=== PATIENT | female | born 1965 | race Two or more races ===

== ENCOUNTER → 2020-03-21 13:50 | Outpatient (BNVA) | payer MEDICAID, SELFPAY | PROVIDERS: Visit Provider Urology | DX: Z76.89 Persons encountering health services in other specified circumstances (principal) ==

== ENCOUNTER 2020-06-06 07:52 | Outpatient (REF) | payer MEDICAID, SELFPAY ==
[2020-06-06 08:46] LABS: Basophils Percent Auto 0.4 % (0-2); Eosinophils Absolute Auto 0.1 X10*3/uL (0.0-0.4); Eosinophils Percent Auto 1.9 % (0-4); Hemoglobin 11.3 g/dl (12.0-16.0); Imm Gran Abs Auto 0.04 X10*3/uL (0.00-0.03); Imm Gran Pct Auto 0.6 % (0.0-0.4); Lymphocytes Absolute Auto 1.7 X10*3/uL (1.2-4.9); Lymphocytes Percent Auto 24.7 % (20-40); Mean Corpuscular HGB Conc 32.3 g/dl (31.0-35.0); Mean Corpuscular Hemoglobin 32.7 pg (27.0-33.0); Mean Corpuscular Volume 101.2 fL (80-98); Monocytes Absolute Auto 0.7 X10*3/uL (0.1-1.2); Monocytes Percent Auto 9.5 % (2-11); Neutrophils Absolute Auto 4.3 X10*3/uL (2.0-8.3); Neutrophils Percent Auto 62.9 % (45-73); Platelet Count 254 X10*3/uL (160-400); Red Blood Count 3.46 X10*6/uL (4.20-5.50); Red Cell Distribution Width 12.6 % (11.0-16.0); White Blood Count 6.9 X10*3/uL (4.8-10.8)
[2020-06-06 08:48] LABS: MANUAL DIFF FLAG NO
[2020-06-06 09:18] LABS: Alanine Aminotransferase 18 U/L (0-31); Albumin Level 4.2 g/dL (3.5-5.0); Alkaline Phosphatase 86 U/L (39-117); Anion Gap 11 (12-20); Aspartate Amino Transferase 15 U/L (5-31); Bilirubin Total 0.4 mg/dL (0.0-1.0); Blood Urea Nitrogen 16 mg/dL (9-16); Calcium 9.2 mg/dL (8.4-10.2); Carbon Dioxide 30 mmol/L (22-29); Chloride 104 mmol/L (96-108); Estimated Glomerular Filt Rate 47; Glucose Random 143 mg/dL (60-115); Potassium 5.1 mmol/l (3.3-5.1); Sodium 140 mmol/L (135-145); Total Protein 7.1 g/dL (6.5-8.0)
== END 2020-06-06 07:53 | disposition home or self-care (01) ==
LOC: HO.LAB 07:52
PROVIDERS: Visit Provider Internal Medicine Medical Oncology
DX: C64.9 Malignant neoplasm of unspecified kidney, except renal pelvis (principal)
CPT/HCPCS: 36415; 80053; 85025

== ENCOUNTER 2020-06-13 09:10 | Outpatient (REF) | payer MEDICAID, SELFPAY ==
--- NOTE | 2020-06-13 09:13 | CT_ITS ---
EXAMINATION: CT ABDOMEN AND PELVIS WITHOUT AND WITH CONTRAST CLINICAL INFORMATION: Renal cell carcinoma of right kidney. COMPARISON: MRI abdomen 12/02/[address] abdomen and pelvis 08/01/2019. TECHNIQUE: Multidetector volumetric imaging was performed of the abdomen and pelvis before and after the IV administration of 85 mL of Omnipaque 300 intravenous contrast. Sagittal and coronal reformatted images were obtained on the technologist's workstation. This CT examination was performed using dose optimization techniques as appropriate, variously including the following: *Automated exposure control *Adjustment of mA and/or kV according to patient size (this includes techniques or standardized protocols for targeted exams where dose is matched to indication/reason for exam; i.e. extremities or head) *Use of iterative reconstruction technique DLP: . 848 mGy-cm FINDINGS: LUNG BASES: The lung bases are clear. The heart size is normal. LIVER, GALLBLADDER, AND BILIARY TREE: The liver is normal in size, shape, and attenuation. No focal hepatic lesion or biliary ductal dilatation is present. The gallbladder is unremarkable with no evidence of radiopaque gallstones, gallbladder wall thickening, or obvious pericholecystic inflammatory changes. PANCREAS: Unremarkable SPLEEN: Unremarkable ADRENAL GLANDS: The left adrenal gland is unremarkable. The right adrenal gland is not seen with certainty. KIDNEYS AND URETERS: The right kidney has been surgically removed. No recurrent lesion or mass in the right adrenal fossa. The left kidney is normal size, shape and position. No radiopaque calculi or hydronephrosis seen. BLADDER: Unremarkable. GASTROINTESTINAL TRACT: There is scattered stool and gas seen throughout the colon without any significant distention. The small bowel loops are normal caliber. Appendix is not seen. ABDOMINAL WALL: No significant hernia is appreciated. LYMPH NODES: Normal. VASCULAR: Unremarkable. PELVIC VISCERA: Unremarkable. OSSEOUS STRUCTURES: No lytic or sclerotic process. CT/CT abdomen pelvis wo/w con IMPRESSION: Status post right nephrectomy with no focal recurrent lesions seen. Normal left kidney. Mild constipation. No major change compared to CT abdomen 08/01/2019.
[2020-06-13] MEDS: iohexoL 350 MG/ML 100 ML INFUS..BTL 85 ML IV (10:33)
== END 2020-06-13 09:11 | disposition home or self-care (01) ==
LOC: HO.CT 09:10
PROVIDERS: Visit Provider Urology
DX: C64.1 Malignant neoplasm of right kidney, except renal pelvis (principal)
CPT/HCPCS: 74178; Q9967

== ENCOUNTER → 2020-06-22 10:00 | Outpatient (BNV) | payer MEDICAID, SELFPAY | PROVIDERS: Visit Provider Internal Medicine Medical Oncology | DX: C64.1 Malignant neoplasm of right kidney, except renal pelvis (principal) | CPT/HCPCS: 99213; 99214 ==

== ENCOUNTER → 2020-07-26 13:23 | Outpatient (BNVA) | payer MEDICAID, SELFPAY | PROVIDERS: Visit Provider Urology ==

== ENCOUNTER 2020-10-18 12:53 | Outpatient (REF) | payer MEDICAID, SELFPAY ==
--- NOTE | ~2020-10-18 | MM_ITS ---
EXAMINATION: MM SCREENING DIGITAL BREAST TOMOSYNTHESIS, BILATERAL CLINICAL INFORMATION: Screening. Asymptomatic. The lifetime risk of breast cancer based on the Tyrer-Cuzick Model is 15%. COMPARISON: Mammography: 08/09/2019, 02/13/2018 (new baseline). TECHNIQUE: Digital breast tomosynthesis is performed in both the craniocaudal and mediolateral oblique views along with computer-aided detection (CAD). Synthesized 2D images are generated from the tomosynthesis. Additional bilateral MLO views of the left cleavage view are provided. FINDINGS: There are scattered areas of fibroglandular density (ACR BI-RADS breast composition Category b). Breast tissue composition borders on heterogeneously dense in the anterior breasts. The parenchymal pattern is similar to prior exams. Parenchymal asymmetries in the bilateral posterior central breasts on CC views are stable. There is no developing density. No architectural abnormality. Again, there are scattered bilateral random punctate round calcifications in each breast. No significant changes. MM/MM tomosynthesis screening BI IMPRESSION: No significant changes from prior studies. ASSESSMENT: BI-RADS 2: Benign RECOMMENDATION: Routine annual mammography screening. This patient's information was entered into a reminder system with a target due date for their next mammogram.
== END 2020-10-18 12:54 | disposition home or self-care (01) ==
LOC: HO.MAMMO 12:53
PROVIDERS: Visit Provider Internal Medicine
DX: Z12.31 Encounter for screening mammogram for malignant neoplasm of breast (principal)
CPT/HCPCS: 77063; 77067

== ENCOUNTER 2021-01-01 11:40 | Outpatient (REF) | payer MEDICAID, SELFPAY ==
--- NOTE | ~2021-01-01 | XR_ITS ---
EXAMINATION: XR CHEST CLINICAL INFORMATION: Renal cell cancer COMPARISON: Previous chest CT most recent April 2019 and chest x-ray July 2019 TECHNIQUE: Frontal view of the chest was obtained. FINDINGS: The cardiac and mediastinal contours are normal. The lungs are clear. There is no pleural effusion or pneumothorax. There are embolization coils projecting over the right upper quadrant. There are degenerative changes of the spine. XR/XR chest 1V IMPRESSION: No evidence for acute disease in the chest.
== END 2021-01-01 11:41 | disposition home or self-care (01) ==
LOC: HO.XRAY 11:40
PROVIDERS: PCP Registered Nurse Community Health; Visit Provider Urology
DX: C64.9 Malignant neoplasm of unspecified kidney, except renal pelvis (principal)
CPT/HCPCS: 71045

== ENCOUNTER 2021-02-23 07:01 | Outpatient (REF) | payer MEDICAID, SELFPAY ==
--- NOTE | ~2021-02-23 | CT_ITS ---
EXAMINATION: CT ABDOMEN AND PELVIS WITH CONTRAST CLINICAL INFORMATION: Renal cell cancer COMPARISON: Previous CT of the abdomen and pelvis June 2020 and MRI of the abdomen November 2019 TECHNIQUE: Multidetector volumetric images were obtained from the superior aspect of the liver through the pubic symphysis following administration 85 mL of Omnipaque 350 intravenous contrast. Sagittal and coronal reformatted images were obtained on the technologist's workstation. Oral contrast: Yes This CT examination was performed using dose optimization techniques as appropriate, variously including the following: *Automated exposure control *Adjustment of mA and/or kV according to patient size (this includes techniques or standardized protocols for targeted exams where dose is matched to indication/reason for exam; i.e. extremities or head) *Use of iterative reconstruction technique DLP: 538 mGy-cm FINDINGS: LUNG BASES: The visualized lung bases are unremarkable. LIVER, GALLBLADDER, AND BILIARY TREE: The liver is low in attenuation suggestive of fatty infiltration. No focal liver lesion is seen. The gallbladder is normal. There is no biliary duct dilatation. PANCREAS: Unremarkable. SPLEEN: Unremarkable. ADRENAL GLANDS: The left adrenal gland is unremarkable. The right adrenal gland has been removed. KIDNEYS AND URETERS: The right kidney has been removed. The left kidney is unremarkable. BLADDER: Unremarkable. GASTROINTESTINAL TRACT: The small and large bowel are unremarkable. The appendix is unremarkable. ABDOMINAL WALL: There is a small infra umbilical hernia containing fat. LYMPH NODES: Normal. VASCULAR: Unremarkable. PELVIC VISCERA: The uterus appears to have been removed. No pelvic mass is seen. OSSEOUS STRUCTURES: Unremarkable. CT/CT abdomen pelvis w con IMPRESSION: Fatty liver. Postoperative changes following right radical nephrectomy. No evidence of recurrent or metastatic disease.
--- NOTE | ~2021-02-23 | CT_ITS ---
EXAMINATION: CT CHEST WITH CONTRAST CLINICAL INFORMATION: Renal cell cancer. Follow-up pulmonary nodules. COMPARISON: Previous chest CT most recent July 2018 TECHNIQUE: Multidetector volumetric CT imaging of the chest was obtained after the administration of 85 mL of Omnipaque 350 intravenous contrast without immediate adverse reactions. Axial MIP volume rendering provided. Sagittal and coronal reformatted images were obtained. This CT examination was performed using dose optimization techniques as appropriate, variously including the following: *Automated exposure control *Adjustment of mA and/or kV according to patient size (this includes techniques or standardized protocols for targeted exams where dose is matched to indication/reason for exam; i.e. extremities or head) *Use of iterative reconstruction technique DLP: 225 mGy-cm FINDINGS: LUNGS: There is a new 4 mm left lower lobe nodule axial image 318 series 5. There is a new 4 mm left lower lobe nodule axial image 218 series 5. There is a new 3 mm right lower lobe nodule axial image 5 series 5 There is a 3 mm calcified left lower lobe nodule axial image 323 series 5 that is stable. There are 2 mm right lower lobe nodules axial image 308 and 375 series 5 that are stable. MEDIASTINUM: The mediastinum is normal. PLEURA: There is no pleural effusion. No pleural mass or thickening. AXILLA: There are small bilateral axillary lymph nodes. No enlarged axillary lymph nodes or chest wall mass is seen. OSSEOUS STRUCTURES: There are degenerative changes of the spine. CT/CT chest w con IMPRESSION: New bilateral lower lobe pulmonary nodules, largest measuring 4 mm in the left lower lobe.
[2021-02-23] MEDS: iohexoL 350 MG/ML 100 ML INFUS..BTL IV (10:36)
== END 2021-02-23 07:02 | disposition home or self-care (01) ==
LOC: HO.CT 07:01
PROVIDERS: Visit Provider Internal Medicine Medical Oncology
DX: C64.9 Malignant neoplasm of unspecified kidney, except renal pelvis (principal)
CPT/HCPCS: 71260; 74177; Q9967

== ENCOUNTER → 2021-04-05 13:20 | Outpatient (BNVA) | payer MEDICAID, SELFPAY | PROVIDERS: PCP Registered Nurse Community Health | DX: C64.9 Malignant neoplasm of unspecified kidney, except renal pelvis (principal) | CPT/HCPCS: 99212 ==

== ENCOUNTER → 2021-05-18 10:53 | Outpatient (BNVA) | payer MEDICAID, SELFPAY | PROVIDERS: PCP Registered Nurse Community Health; Referring Provider Registered Nurse Community Health; Visit Provider Internal Medicine Gastroenterology ==

== ENCOUNTER → 2021-07-13 10:51 | Outpatient (BNVA) | payer MEDICAID, SELFPAY | PROVIDERS: PCP Registered Nurse Community Health; Referring Provider Registered Nurse Community Health; Visit Provider Internal Medicine Gastroenterology | DX: R10.9 Unspecified abdominal pain (principal); K59.00 Constipation, unspecified; Z85.528 Personal history of other malignant neoplasm of kidney; Z90.5 Acquired absence of kidney | CPT/HCPCS: 99212 ==

== ENCOUNTER 2021-09-04 07:09 | Outpatient (REF) | payer MEDICAID, SELFPAY ==
--- NOTE | ~2021-09-04 | US_ITS ---
EXAMINATION: US RETROPERITONEAL LIMITED (RENAL ONLY) CLINICAL INFORMATION: Malignant neoplasm of unspecified kidney, except renal pelvis. COMPARISON: CT abdomen and pelvis 02/23/2021. MRI abdomen 12/02/2019. Ultrasound abdomen 08/13/2018. TECHNIQUE: Real-time imaging of the kidneys. FINDINGS: RIGHT KIDNEY: Surgically absent. LEFT KIDNEY: 11.7 x 6.4 x 4.3 cm (SAG x AP x TRV). The kidney is normal in size, contour, and echogenicity. Renal cortical thickness is normal. No renal calculi or hydronephrosis. There is anechoic cyst midpole laterally measuring 0.4 x 0.3 x 0.4 cm. US/US renal BI IMPRESSION: Small anechoic cyst midpole left kidney. No echogenic stones or hydronephrosis seen.
== END 2021-09-04 07:10 | disposition home or self-care (01) ==
LOC: HO.US 07:09
DX: C64.9 Malignant neoplasm of unspecified kidney, except renal pelvis (principal)
CPT/HCPCS: 76775

== ENCOUNTER 2021-11-01 13:48 | Outpatient (REF) | payer MEDICAID, SELFPAY ==
--- NOTE | ~2021-11-01 | MM_ITS ---
EXAMINATION: MM SCREENING DIGITAL BREAST TOMOSYNTHESIS, BILATERAL CLINICAL INFORMATION: Screening. Asymptomatic. The lifetime risk of breast cancer based on the Tyrer-Cuzick Model is 8.2%. COMPARISON: Mammography: October 18, 2020 and studies dating back to February 13, 2018 TECHNIQUE: Digital breast tomosynthesis is performed in both the craniocaudal and mediolateral oblique views along with computer-aided detection (CAD). Synthesized 2D images are generated from the tomosynthesis. FINDINGS: The breasts are heterogeneously dense, which may obscure small masses (ACR BI-RADS breast composition Category c). There are no new significant masses, abnormal calcifications, or other abnormalities. MM/MM tomosynthesis screening BI IMPRESSION: There are no significant changes from prior study. ASSESSMENT: BI-RADS 1: Negative RECOMMENDATION: Routine annual mammography screening. This patient's information was entered into a reminder system with a target due date for their next mammogram.
== END 2021-11-01 13:49 | disposition home or self-care (01) ==
LOC: HO.MAMMO 13:48
PROVIDERS: PCP Registered Nurse Community Health; Visit Provider Registered Nurse Community Health
DX: Z12.31 Encounter for screening mammogram for malignant neoplasm of breast (principal)
CPT/HCPCS: 77063; 77067

== ENCOUNTER 2022-05-29 13:17 | Outpatient (REF) | payer MEDICAID, SELFPAY | END 2022-05-29 13:18 | disposition home or self-care (01) | LOC: HO.US 13:17 | PROVIDERS: Visit Provider Advanced Practice Midwife | DX: R10.2 Pelvic and perineal pain (principal) | CPT/HCPCS: 76830; 76856 ==

== ENCOUNTER → 2022-06-12 12:44 | Outpatient (BNVA) | payer MEDICAID, SELFPAY | PROVIDERS: PCP Registered Nurse Community Health; Visit Provider Advanced Practice Midwife | DX: Z71.2 Person consulting for explanation of examination or test findings (principal); R10.2 Pelvic and perineal pain | CPT/HCPCS: 99212 ==

== ENCOUNTER 2022-06-14 08:41 | Outpatient (REF) | payer MEDICAID, SELFPAY ==
--- NOTE | ~2022-06-14 | XR_ITS ---
EXAMINATION: XR CHEST CLINICAL INFORMATION: Malignant neoplasm of the kidney COMPARISON: 01/01/2021 TECHNIQUE: 2 views of the chest were obtained. FINDINGS: The lungs are well expanded. There is no focal consolidation, edema, or effusion. No pneumothorax. The cardiomediastinal silhouette is within normal limits. No acute osseous abnormality. Mild degenerative changes throughout the spine. Radiopaque coils in the upper central abdomen. XR/XR chest 2V IMPRESSION: Clear lungs.
== END 2022-06-14 08:42 | disposition home or self-care (01) ==
LOC: HO.XRAY 08:41
DX: C64.9 Malignant neoplasm of unspecified kidney, except renal pelvis (principal)
CPT/HCPCS: 71046

== ENCOUNTER → 2022-06-20 15:40 | Outpatient (BNVA) | payer MEDICAID, SELFPAY | PROVIDERS: PCP Registered Nurse Community Health; Visit Provider Nurse Practitioner Family | DX: C64.1 Malignant neoplasm of right kidney, except renal pelvis (principal) | CPT/HCPCS: 99212 ==

== ENCOUNTER 2022-07-04 07:05 | Outpatient (REF) | payer MEDICAID, SELFPAY ==
--- NOTE | ~2022-07-04 | CT_ITS ---
EXAMINATION: CT ABDOMEN PELVIS WITH IV CONTRAST CLINICAL INFORMATION: Followup on renal cell carcinoma. COMPARISON: None TECHNIQUE: 5 mm thin axial and reformatted 3 mm thin sagittal and coronal images of chest, abdomen and pelvis were obtained following IV 85 mL Omnipaque 350. DLP: 1233 mGy-cm. This CT examination was performed using dose optimization technique as appropriate, variously including the following: Automated exposure control Adjustment of MA and/or KV according to patient size(this includes techniques or standardized protocols for targeted exams where dose is matched to indication/reason for exam; extremities or head. Use of iterative reconstruction techniques. FINDINGS: CHEST: Lungs: Both lungs are fairly well expanded and clear of acute pneumonic consolidation. There is a 1 mm calcification right lower lobe superior segment image 181/10, noncalcified 4 mm nodule left lower lobe axial image 242/10, 6 mm nodule left lower lobe axial image 234/10, 2 mm nodule left lower lobe axial image 189/10, 1 mm nodule right middle lobe axial image 235/10 and 3 mm nodule right lower lobe axial image 268/10. Mediastinum: The heart size is normal. The great vessels are normal caliber. Central trachea and the bronchi are widely patent. The thyroid lobes are symmetrical and normal. No abnormal-size mediastinal or hilar lymphadenopathy seen. No pericardial effusion seen. Pleura: There is no pleural effusion, thickening or calcification. Axilla: No abnormal-size inguinal lymph node seen. The chest wall is unremarkable. ABDOMEN AND PELVIS: Liver, ducts and gallbladder: The liver is normal size, contour and density. No focal lesion or intrahepatic ductal dilatation seen. The gallbladder is unremarkable. Spleen: Unremarkable. Pancreas: Unremarkable. Kidneys and adrenal glands: The right kidney and right adrenal gland appears to be removed. The left kidney is normal size, shape and position. No focal enhancing lesion, cyst or hydronephrosis seen. No radiopaque calculi. The left adrenal gland is normal. Lymphovascular structures: The abdominal aorta is normal caliber. No abnormal-size retroperitoneal lymph nodes or mass seen. GI tract: There is scattered stool and gas seen in colon without distention. The small bowel loops are normal caliber. The appendix is normal caliber. Abdominal wall: There is an infraumbilical midline abdominal wall hernia containing fat. The neck is 3.2 cm wide in craniocaudad length. Pelvis: The bladder is nondistended and appears unremarkable. The uterus is atrophic or surgically removed. No free fluid or adnexal mass seen. No abnormal pelvic or inguinal lymph nodes. Osseous structures: Degenerative disc changes and vacuum disc phenomena L5-S1 disc level. No aggressive lytic or sclerotic process seen. CT/CT abdomen pelvis w IV con IMPRESSION: Status post right nephrectomy and adrenalectomy. The left kidney and left adrenal gland is unremarkable. No retroperitoneal or pelvic lymph node seen. Mild constipation. Multiple bilateral small pulmonary nodules, suspicious. The largest nodule measures 6 mm.
[2022-07-04 07:46] LABS: Blood Urea Nitrogen 17 mg/dL (9-16); Estimated Glomerular Filt Rate 40
[2022-07-04] MEDS: iohexoL 350 MG/ML 100 ML INFUS..BTL IV (08:42)
== END 2022-07-04 07:06 | disposition home or self-care (01) ==
LOC: HO.CT 07:05
PROVIDERS: Nurse Practitioner Family; Visit Provider Internal Medicine Medical Oncology
DX: C64.9 Malignant neoplasm of unspecified kidney, except renal pelvis (principal); R91.8 Other nonspecific abnormal finding of lung field; R39.15 Urgency of urination
CPT/HCPCS: 36415; 71260; 74177; 82565; 84520; Q9967

== ENCOUNTER 2022-08-07 12:00 | Outpatient (RCR) | payer MEDICAID, SELFPAY ==
--- NOTE | 2022-07-10 14:11 | MHC.PT.EP ---
[facility] [place] Office [place] Office [place] Office [address] Jared Solorzano [address] [phone] F: [phone] F: [phone] F: [phone] F: [phone] Physical Therapy Plan of Care Date of Evaluation: Date of Surgery: N/A Diagnosis: Macromastia Assessment: Pt is a 57yo F with PMH including renal cell carcinoma presents to PT with chronic low back pain. She presents to PT with current impairments in pain, decreased lumbar ROM, soft tissue restrictions, decreased core stabilization, decreased muscle length, increased anterior pelvic tilt and impaired gait. She is limited functionally by prolonged standing, prolonged sitting, laying flat, and transitional movements. Overall she has fair tolerance for mobility at this time. Pt is a good candidate for skilled PT in order to address current impairments to facilitate return to PLOF. She is recommended to be seen 1x/week for 5 weeks and will be reassessed at that time. Frequency and Duration: The patient will be seen 1x/week for 5 weeks Short Term Goals: Pt will be I with HEP to promote self management of symptoms Pt will demonstrate proper use of lumbar roll for improve posture and positioning Mcc Goals: Pt will demonstrate full ROM all planes of lumbar spine Pt will tolerate prolonged standing and walking > 30 min with pain < 5/10 Treatment Plan: Modalities to reduce pain, spasms and effusion. Manual therapy to restore motion and function. Therapeutic exercise to improve strength and flexibility. Neuromuscular re-education for posture and balance. Therapeutic activities to return to functional activities of daily living. Electronically signed by: Chapis Isaac, PT, DPT Please sign and return to therapist. Thank you for your referral.
--- NOTE | 2022-09-12 14:49 | MHC.PT.DC ---
[facility] [place] Office [place] Office [place] Office [address] Jared Solorzano [address] [phone] F: [phone] F: [phone] F: [phone] F: [phone] Physical Therapy Discharge Report Diagnosis: Macromastia Date of Surgery: N/A Date of Evaluation: 07/10/22 Date of Discharge: 09/12/22 Treatments to Date: 3 Cancellations to Date: No Shows to Date: 3 Discharge Status: Visit Non-compliance Discharge Summary: Pt was seen for PT from 07/10/22-08/07/22. Her last attended appointment was 08/07/22. She had 3 no show appointments since SOC including 2 no shows for her last 2 scheduled appointments. Pt is being D/C from skilled PT for visit non compliance per [facility] [place]. Pt current level of function unknown at this time. Electronically signed by: Chapis Isaac, PT, DPT Please sign and return to therapist. Thank you for your referral.
== END 2022-09-12 14:49 | disposition home or self-care (01) ==
LOC: HO.PT 12:00
PROVIDERS: PCP Registered Nurse; Visit Provider Registered Nurse
DX: M54.50 Low back pain, unspecified (principal)
CPT/HCPCS: 97110; 97162

== ENCOUNTER 2022-12-02 13:22 | Outpatient (REF) | payer MEDICAID, SELFPAY ==
--- NOTE | ~2022-12-02 | MM_ITS ---
EXAMINATION: MM SCREENING DIGITAL BREAST TOMOSYNTHESIS, BILATERAL CLINICAL INFORMATION: Screening. Asymptomatic. The lifetime risk of breast cancer based on the Tyrer-Cuzick Model is 9%. COMPARISON: Prior mammography exams including most recent 11/01/2021. TECHNIQUE: Digital breast tomosynthesis is performed in both the craniocaudal and mediolateral oblique views along with computer-aided detection (CAD). Synthesized 2D images are generated from the tomosynthesis. FINDINGS: There are scattered areas of fibroglandular density (ACR BI-RADS breast composition Category b). There are no significant masses, abnormal calcifications, or other abnormalities. No developing density or architectural abnormality. Scattered bilateral random punctate round calcifications are present in each breast similar to prior exams. No significant changes. MM/MM tomosynthesis screening BI IMPRESSION: No mammographic evidence of malignancy. ASSESSMENT: BI-RADS 2: Benign RECOMMENDATION: Routine annual mammography screening. This patient's information was entered into a reminder system with a target due date for their next mammogram.
== END 2022-12-02 13:23 | disposition home or self-care (01) ==
LOC: HO.MAMMO 13:22
PROVIDERS: PCP Registered Nurse; Visit Provider Registered Nurse
DX: Z12.31 Encounter for screening mammogram for malignant neoplasm of breast (principal)
CPT/HCPCS: 77063; 77067

== ENCOUNTER 2022-12-05 08:26 | Outpatient (REF) | payer MEDICAID, SELFPAY ==
--- NOTE | ~2022-12-05 | CT_ITS ---
EXAM: 1. CT chest without contrast 2. CT abdomen pelvis without and with IV contrast INDICATION: Follow-up pulmonary nodules. Renal neoplasm. COMPARISON: CT chest, abdomen and pelvis 07/04/2022 TECHNIQUE: Multidetector helical imaging of the chest, abdomen, and pelvis was obtained from the thoracic inlet through the pubic symphysis following administration of 85 cc of Omnipaque 350 IV contrast. Coronal and sagittal reformatted images that were obtained were also reviewed. This CT examination was performed using dose optimization techniques as appropriate, variously including the following: *Automated exposure control *Adjustment of mA and/or kV according to patient size (this includes techniques or standardized protocols for targeted exams where dose is matched to indication/reason for exam; i.e. extremities or head) *Use of iterative reconstruction technique DLP: 233 mGy-cm FINDINGS: CHEST: Central airways are patent. Lungs are well aerated. There is no lobar consolidation, pleural effusion or pneumothorax. Several previously visualized subcentimeter pulmonary nodules are again noted, most of which are relatively stable in size although a few demonstrate minimal interval increase in size, for example a 5 mm left lower lobe pulmonary nodule previously measured 4 mm (image 122/208, series 7). Also noted are a few new pulmonary nodules which were not definitively visualized previously, for example a 5 mm right lower lobe pulmonary nodule on image 116. The heart is normal in size. There is no pericardial effusion. No significant coronary artery calcifications. Normal caliber thoracic aorta. No gross mediastinal or hilar lymphadenopathy. No pathologically enlarged axillary lymph nodes. ABDOMEN/PELVIS: The liver is normal in size but demonstrates diffusely decreased attenuation. The gallbladder is normal in appearance. There is mild fatty atrophy of the pancreas. The spleen and left adrenal gland are unremarkable. No renal calculi or hydronephrosis of the left kidney. The right kidney and right adrenal gland are surgically absent. Right nephrectomy bed is unremarkable. Normal caliber loops of small and large bowel. Mild colonic stool burden. Normal appendix. Stable fat-containing umbilical hernia. Normal caliber abdominal aorta. No gross retroperitoneal lymphadenopathy. Similar appearance of the bladder. The uterus is surgically absent. No gross free pelvic fluid. Similar shotty pelvic lymph nodes. OSSEOUS STRUCTURES Mild to moderate degenerative changes of the spine. CT/CT abdomen pelvis wo/w IV con IMPRESSION: 1. Several previously visualized subcentimeter pulmonary nodules are again noted, most of which are relatively stable in size although a few demonstrate minimal interval increase in size, for example a 5 mm left lower lobe pulmonary nodule previously measured 4 mm. Also noted are a few new pulmonary nodules which were not definitively visualized previously, for example a 5 mm right lower lobe pulmonary nodule was not definitively visualized previously. Findings are concerning for metastatic disease. 2. Diffusely decreased liver attenuation suggesting hepatic steatosis. Correlation with liver enzymes recommended.
[2022-12-05] MEDS: iohexoL 350 MG/ML 100 ML INFUS..BTL IV (10:41)
[2022-12-05 14:25] LABS: Creatinine POC 0.8 mg/dL (0.5-1.4); GFR POC > 60
== END 2022-12-05 08:27 | disposition home or self-care (01) ==
LOC: HO.CT 08:26
PROVIDERS: PCP Registered Nurse; Visit Provider Nurse Practitioner Family
DX: C64.9 Malignant neoplasm of unspecified kidney, except renal pelvis (principal); R91.8 Other nonspecific abnormal finding of lung field
CPT/HCPCS: 71260; 74178; 82565; Q9967

== ENCOUNTER → 2022-12-09 08:48 | Outpatient (BNVA) | payer MEDICAID, SELFPAY | PROVIDERS: Visit Provider Hospitalist | DX: R91.8 Other nonspecific abnormal finding of lung field (principal); C64.1 Malignant neoplasm of right kidney, except renal pelvis | CPT/HCPCS: 99202 ==

== ENCOUNTER 2022-12-18 13:12 | Outpatient (AMB) | payer MEDICAID, SELFPAY ==
--- NOTE | 2022-12-18 14:11 | MHC.OFFVIS ---
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: Yes Accompanied by: Self / Same As Patient Allergies phenylephrine [From CONTAC-D COLD (PE)] Allergy (Unknown, Verified 12/19/22 10:15) EDEMA Contac-D Allergy (Unknown, Uncoded 12/19/22 10:15) Unknown Medication List - Last Reconciled 12/19/22 by BELINDA Gan-MATEO acetaminophen ER 1,300 mg PO Q8H PRN atorvastatin 1 tab PO BEDTIME baclofen 20 mg PO TID docusate sodium 1 cap PO BEDTIME PRN dulaglutide (Trulicity) 0.75 mg subcut QWEEK famotidine 20 mg PO gabapentin 1 cap PO QPM lancets (TRUEplus Lancets) As directed levothyroxine 25 mcg PO QAM losartan 25 mg PO DAILY metformin 500 mg PO BID naloxegol (Movantik) 12.5 mg PO QAM oxycodone 5 mg PO Q6H PRN propranolol 10 mg PO BID sertraline 25 mg PO DAILY sertraline (Zoloft) 200 mg PO DAILY zolpidem 10 mg PO BEDTIME HPI HPI Comments History of Present Illness Details Krys is a Telugu-speaking 57-year-old female patient of Dr. Naidu. 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 These results were reviewed with the patient today. No renal calculi or hydronephrosis of the left kidney. The right kidney and right adrenal gland are surgically absent. Right nephrectomy bed is unremarkable. Several previously visualized subcentimeter pulmonary nodules are again noted, most of which are relatively stable in size although a few demonstrate minimal interval increase in size. Also noted are a few new pulmonary nodules which were not definitively visualized previously. Findings are concerning for metastasis disease. Patient reports having followed up with pulmonology and will be undergoing biopsy tomorrow. She does verbalize feelings of anxiety related to her history of cancer. At this time patient denies any urinary issues. Discussed surveillance imaging chest CT as well as abdominal and pelvis imaging. Discussed surveillance imaging at years 5, 7 and 9. Renal lesion:? Discussed imaging results No evidence of disease Repeat imaging in 6 months Lab work has been followed with Oncology has been normal The renal mass was diagnosed incidentally, during evaluation for, hematuria ? 09/25 ? Prior treatment(s) included 01/[address] Hui. ? Staging of initial cancer 01/25 , T3a , with no positive lymph nodes, with vein involvement ? - Stage III. ? The diagnosis was renal cell carcinoma, Grade III ? Planned therapeutic plan Continue with interval imaging. [facility] Medical History Anxiety Clear cell carcinoma of right kidney Depression Pulmonary nodules Right renal mass Surgical History History of esophagogastroduodenoscopy (EGD) Hx of colonoscopy S/P skin biopsy Status post hysterectomy Family History Maternal Uncle Stomach cancer Maternal Aunt Stomach cancer Paternal Aunt Colon cancer Sister Liver cancer Sister Skin cancer Social History Household Members: None Housing: Apartment Are you a primary memory care program resident to a significant other at home: No Do you presently have visiting nurse or other home services: Yes Alcohol intake: former Patient Tobacco Use Status: Never used Tobacco Advance Directives: No Advance Directives Information Provided: Yes service: No Current occupational status: unemployed Review of Systems Const Reports as per HPI Eyes Reports no additional complaints ENT Reports no additional complaints Card Reports no additional complaints Resp Reports as per HPI GI Reports no additional complaints Reports as per HPI Musc Reports no additional complaints Psych Reports as per HPI Physical Exam Const General: cooperative, healthy appearing, comfortable, no acute distress, well developed, alert and awake Orientation/consciousness: patient oriented x3 Limitations: no limitations HEENT Head: Yes normal to inspection, Yes normocephalic and Yes atraumatic Eyes General: appearance normal, both eyes and all related structures Neck Neck: Yes normal visual inspection and Yes trachea midline Chest Chest palpation & inspection: normal inspection of the chest Resp Effort & Inspection: normal respiratory effort and able to speak in complete sentences Cardio Rate: regular rate GI Inspection: Yes normal to inspection General: Yes no CVA tenderness Back/Spine/Pelvis Back: no CVA tenderness Neuro General: patient oriented x3 Extrem General: Yes normal to inspection Psych Appearance: grossly normal and well kempt Mental Status: mental status grossly normal Speech and movement: Normal speech and movement present and Clear speech present Affect: normal affect Attitude: cooperative Thought process: Normal thought process present Thought content: Normal thought content present Insight: Fair insight present (Psych) Judgement: Fair judgement present (Psych) Results Reviewed Results Reviewed: Date of Service: 12/05/22 Procedure(s): CT abdomen pelvis wo/w IV con FINDINGS: CHEST: Central airways are patent. Lungs are well aerated. There is no lobar consolidation, pleural effusion or pneumothorax. Several previously visualized subcentimeter pulmonary nodules are again noted, most of which are relatively stable in size although a few demonstrate minimal interval increase in size, for example a 5 mm left lower lobe pulmonary nodule previously measured 4 mm (image 122/208, series 7). Also noted are a few new pulmonary nodules which were not definitively visualized previously, for example a 5 mm right lower lobe pulmonary nodule on image 116. The heart is normal in size. There is no pericardial effusion. No significant coronary artery calcifications. Normal caliber thoracic aorta. No gross mediastinal or hilar lymphadenopathy. No pathologically enlarged axillary lymph nodes. ABDOMEN/PELVIS: The liver is normal in size but demonstrates diffusely decreased attenuation. The gallbladder is normal in appearance. There is mild fatty atrophy of the pancreas. The spleen and left adrenal gland are unremarkable. No renal calculi or hydronephrosis of the left kidney. The right kidney and right adrenal gland are surgically absent. Right nephrectomy bed is unremarkable. Normal caliber loops of small and large bowel. Mild colonic stool burden. Normal appendix. Stable fat-containing umbilical hernia. Normal caliber abdominal aorta. No gross retroperitoneal lymphadenopathy. Similar appearance of the bladder. The uterus is surgically absent. No gross free pelvic fluid. Similar shotty pelvic lymph nodes. OSSEOUS STRUCTURES Mild to moderate degenerative changes of the spine. IMPRESSION:? 1.? Several previously visualized subcentimeter pulmonary nodules are again noted, most of which are relatively stable in size although a few demonstrate minimal interval increase in size, for example a 5 mm left lower lobe pulmonary nodule previously measured 4 mm. Also noted are a few new pulmonary nodules which were not definitively visualized previously, for example a 5 mm right lower lobe pulmonary nodule was not definitively visualized previously. Findings are concerning for metastatic disease. 2.? Diffusely decreased liver attenuation suggesting hepatic steatosis. Correlation with liver enzymes recommended. Assessment & Plan Assessment & Plan (1) Clear cell carcinoma of right kidney: Comment: status post nephrectomy, at [facility] in January. 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 Marilyn grade 3. Stage IIIA, with renal vein extention. Stutent started on June 17. Code(s): C64.1 - Malignant neoplasm of right kidney, except renal pelvis (2) Renal cell carcinoma: Code(s): C64.9 - Malignant neoplasm of unspecified kidney, except renal pelvis Plan Recent CT of the abdomen results reviewed with the patient today; as noted above. Recent CT of the chest results reviewed with the patient today; as noted above. Patient has since follow-up with pulmonology and plan is to move forward with biopsy. Discussed importance of following up with pulmonology as directed. Patient denies any urological issues or concerns at this time. Patient reports be happy with current voiding parameters. Renal ultrasound in 6 months. Follow-up in 6 months with imaging to be completed prior or sooner with any issues, concerns, and or questions. Orders: Orders US renal BI 6 Months C64.1 - Malignant neoplasm of right kidney, except renal pelvis Patient Instructions: The patient had an opportunity to ask questions regarding the treatment plan. All questions were answered. Physical exam, labs, and imaging were discussed and reviewed in detail. As well as risks, benefits, and discussion of treatment choices. No major barriers to understanding were identified. The patient expressed understanding and agreement with the above treatment plan. The patient was made aware they should contact our office by phone for worsening of their current condition, the appearance of new symptoms, or with any questions or concerns. Compliance is encouraged with any medications and follow up testing that is ordered. It is a privilege to be allowed the opportunity to participate in? your urological care.? Again, if you have any questions or concerns If you have any questions or concerns please do not hesitate to contact me. The office is [phone]. This note is constructed using voice recognition software. While every effort has been made to ensure accuracy property loss insurance claim adjuster errors may have been included. Yours sincerely, ARLEY Gan Coding Level of Care Code Est Pt Level 3 (05545) Diagnoses Clear cell carcinoma of right kidney C64.1 Renal cell carcinoma C64.9
== END 2022-12-18 14:45 | disposition home or self-care (01) ==
PROVIDERS: Visit Provider Nurse Practitioner Family
DX: C64.1 Malignant neoplasm of right kidney, except renal pelvis (principal); C64.9 Malignant neoplasm of unspecified kidney, except renal pelvis
CPT/HCPCS: 99213

== ENCOUNTER → 2022-12-18 13:12 | Outpatient (BNVA) | payer MEDICAID, SELFPAY | PROVIDERS: Visit Provider Nurse Practitioner Family | DX: C64.1 Malignant neoplasm of right kidney, except renal pelvis (principal); C64.9 Malignant neoplasm of unspecified kidney, except renal pelvis; R91.8 Other nonspecific abnormal finding of lung field; Z90.5 Acquired absence of kidney; Z79.4 Long term (current) use of insulin; Z79.891 Long term (current) use of opiate analgesic; Z79.899 Other long term (current) drug therapy | CPT/HCPCS: 99213 ==

== ENCOUNTER 2022-12-19 06:04 | Day surgery (SDC) | payer MEDICAID, SELFPAY ==
--- NOTE | ~2022-12-19 | XR_ITS ---
EXAMINATION: XR CHEST CLINICAL INFORMATION: Status post right lung biopsy. COMPARISON: 06/14/2022 chest radiographs. 12/19/2022 left lung biopsy and chest CT scan dated 12/05/2022. TECHNIQUE: Frontal view of the chest was obtained. FINDINGS: The lungs are clear. No overt pneumothorax. The heart and mediastinal structures are unremarkable. XR/XR chest 1V IMPRESSION: No overt pneumothorax status post lung biopsy. The known nodules are not as well seen radiographically. Please refer to the recent CT scan report for more detailed findings.
--- NOTE | ~2022-12-19 | CT_ITS ---
PROCEDURE: CT GUIDED BIOPSY, LUNG CLINICAL INFORMATION: 57-year-old female with multiple pulmonary nodules COMPARISON: CT of the chest dated 12/05/2022 TECHNIQUE: Patient was positioned oblique prone on the CT examination table with the left side raised from the bed. Preliminary CT scan showed multiple left lung nodules and a peripheral left lower lobe nodule that was deemed appropriate for biopsy. It was, however, challenging from the standpoint that it is subcentimeter in size and located immediately below a rib, but we nonetheless felt it was the safest to biopsy. We experimented with angulation of the CT gantry and with the patient performing full inspiratory and expiratory phases. We found that full expiratory phase optimally positioned the nodule, but unfortunately the patient continued to move throughout the procedure and also was semicompliant with breathing instructions. Nonetheless, we elected to attempt biopsy. The overlying skin was prepped and draped. 1% lidocaine was injected subcutaneously and extended to the deep pelvis soft tissues. Next, under progressive CT guidance, I advanced a 17-gauge coaxial needle to the pleural surface. I was able to obtain [id number] core specimens directly through the nodule. This was confirmed with imaging. The specimens were placed in formalin and deemed to be adequate by pathology. We removed the coaxial needle. There was a tiny amount of intraparenchymal hemorrhage, but no pneumothorax nor other complication. A sterile dressing was applied. This CT examination was performed using dose optimization techniques as appropriate, variously including the following: *Automated exposure control *Adjustment of mA and/or kV according to patient size (this includes techniques or standardized protocols for targeted exams where dose is matched to indication/reason for exam; i.e. extremities or head) *Use of iterative reconstruction technique DLP: 1646 mGy-cm FINDINGS: Multiple pulmonary nodules in the left lung. Successful core biopsy of a peripheral left lower lobe nodule. CT/CT biopsy lung LT IMPRESSION: Successful CT-guided core biopsy of a peripheral left lower lobe nodule as described.
[2022-12-19 07:16] VITALS: BP 122/53; PULSE 68; RESP 20; TEMP 36.1; O2SAT 95; BMI 37.1
[2022-12-19 07:18] LABS: Glucose, Whole Blood 162 mg/dL (60-115)
[2022-12-19 07:38] LABS: MANUAL DIFF FLAG NO
[2022-12-19 07:46] LABS: Basophils Percent Auto 0.5 % (0-2); Eosinophils Absolute Auto 0.2 X10*3/uL (0.0-0.4); Eosinophils Percent Auto 2.9 % (0-4); Hematocrit 37.4 % (37.0-47.0); Hemoglobin 12.3 g/dl (12.0-16.0); Imm Gran Abs Auto 0.02 X10*3/uL (0.00-0.03); Imm Gran Pct Auto 0.3 % (0.0-0.4); Lymphocytes Absolute Auto 1.5 X10*3/uL (1.2-4.9); Mean Corpuscular HGB Conc 32.9 g/dl (31.0-35.0); Mean Corpuscular Hemoglobin 31.4 pg (27.0-33.0); Mean Corpuscular Volume 95.4 fL (80.0-98.0); Mean Platelet Volume 10.5 fL (9.4-12.3); Monocytes Absolute Auto 0.4 X10*3/uL (0.1-1.2); Monocytes Percent Auto 6.8 % (2-11); Neutrophils Absolute Auto 4.2 x10*3/uL (2.0-8.3); Neutrophils Percent Auto 66.5 % (45-73); Platelet Count 241 X10*3/uL (160-400); Red Blood Count 3.92 X10*6/uL (4.20-5.50); Red Cell Distribution Width 13.1 % (11.0-16.0); White Blood Count 6.3 X10*3/uL (4.8-10.8)
[2022-12-19 07:50] LABS: Prothrombin Time 10.9 SEC (10.0-13.1)
[2022-12-19 07:52] LABS: Partial Thromboplastin Time 30.5 SEC (26.0-36.4)
[2022-12-19 07:56] LABS: Anion Gap 12 (12-20); Blood Urea Nitrogen 11 mg/dL (9-16); Carbon Dioxide 26 mmol/L (22-29); Chloride 108 mmol/L (96-108); Creatinine Clr Calc Pharmacy 77.5; Estimated Glomerular Filt Rate 58; Potassium 4.5 mmol/L (3.3-5.1); Sodium 141 mmol/L (135-145)
[2022-12-19 10:40] VITALS: BP 124/68; PULSE 61; RESP 18; TEMP 36.6; O2SAT 92
[2022-12-19 11:10] VITALS: BP 108/70; PULSE 58; RESP 18; O2SAT 92
[2022-12-19 11:40] VITALS: BP 124/63; PULSE 62; RESP 18; O2SAT 94
[2022-12-19 12:10] VITALS: BP 129/54; PULSE 61; RESP 18; O2SAT 96
[2022-12-19 12:34] VITALS: BP 133/85; PULSE 65; RESP 18; TEMP 36.2; O2SAT 94
== END 2022-12-19 12:45 | disposition home or self-care (01) ==
PROVIDERS: Radiology Diagnostic Radiology; PCP Registered Nurse; Visit Provider Hospitalist
DX: C78.02 Secondary malignant neoplasm of left lung (principal); C64.1 Malignant neoplasm of right kidney, except renal pelvis; R53.83 Other fatigue; E03.9 Hypothyroidism, unspecified; F32.A Depression, unspecified; F41.1 Generalized anxiety disorder; Z90.5 Acquired absence of kidney; Z88.8 Allergy status to other drugs, medicaments and biological substances
CPT/HCPCS: 32408; 36415; 71045; 80051; 82565; 82947; 84520; 85025; 85610; 85730; 88305; 88342; 99152; 99153; J2250; J3010

== ENCOUNTER → 2022-12-19 08:26 | Outpatient (BNV) | payer MEDICAID, SELFPAY | PROVIDERS: PCP Registered Nurse; Visit Provider Radiology Vascular & Interventional Radiology | DX: R91.8 Other nonspecific abnormal finding of lung field (principal) | CPT/HCPCS: 32408 ==

== ENCOUNTER 2023-03-11 21:12 | Outpatient (REF) | payer MEDICAID, SELFPAY ==
[2023-03-12 11:13] LABS: CT PCR NOT DETECTED (Not Detect.); NG PCR NOT DETECTED (Not Detect.)
[2023-03-12 13:35] LABS: BV Int Neg Control Negative (Negative); BV Int Pos Control Positive (Positive)
== END 2023-03-11 21:13 | disposition home or self-care (01) ==
LOC: HO.HHCLNP 21:12
PROVIDERS: Visit Provider Student in an Organized Health Care Education/Training Program
DX: N89.8 Other specified noninflammatory disorders of vagina (principal)
CPT/HCPCS: 0353U; 87480; 87510; 87660

== ENCOUNTER 2023-03-13 06:43 | Day surgery (SDC) | payer MEDICAID, SELFPAY ==
--- NOTE | ~2023-03-13 | IR_ITS ---
PROCEDURE: IR INSERTION OF SUBCUTANEOUS PORT WITH ULTRASOUND AND FLUOROSCOPIC GUIDANCE CLINICAL INFORMATION: History of renal cancer COMPARISON: None available. TECHNIQUE: All elements of maximal sterile barrier technique followed including use of cap, mask, sterile gown, sterile gloves, a sterile full body drape and hand hygiene. Also followed skin preparation with 2% chlorhexidine for cutaneous antisepsis, and sterile ultrasound preparation with sterile gel and probe cover when applicable. CONSTRUCTION TEACHER: Brett Silva MD FSIR ANESTHESIA: IV moderate sedation with intravenous fentanyl and Versed was administered under my direct supervision with continuous physiologic monitoring for a total of 45 minutes. Procedure in detail: Informed and written consent was obtained. The patient was positioned supine on the angiography table. Sterile preparation of the right neck and chest was performed. Ultrasound of the right neck showed a patent internal jugular vein. 1% lidocaine was injected subcutaneously and extended to the edge of the jugular vein under ultrasound guidance. A small incision was made in the skin with a #11 blade. Through the incision and under ultrasound guidance with permanent recordings and direct visualization of needle entry into the vein, the right internal jugular vein was catheterized in an antegrade fashion. Over a wire, the tract was dilated and the peel-away sheath was left in place. At the planned location for the port located below the right clavicle, 1% lidocaine with epinephrine was administered subcutaneously and the local anesthesia was extended along the planned subcutaneous tract for the catheter. A small incision was made in the skin with a #15 blade. Blunt dissection was performed to create a pocket for the port. Next, we tunneled the port catheter from the port site to the neck incision site. The catheter was inserted into the peel-away sheath. It terminates at the right atrium. We cut the catheter to length and connected it to the port, which was inserted into the pocket. The pocket was irrigated with antibiotic solution. The pocket was closed with interrupted 3-0 Vicryl suture. Topical Dermabond was applied. An overlying sterile dressing was placed. The port was tested and flushes and aspirates appropriately. It was locked with heparin. A saved fluoroscopic image shows that the catheter terminates in the right atrium. Summary: Successful placement of a subcutaneous port via the right internal jugular vein under fluoroscopic and ultrasound guidance.
[2023-03-13 06:52] VITALS: BMI 33.6
[2023-03-13 06:58] VITALS: BP 135/80; PULSE 58; RESP 20; TEMP 36.3; O2SAT 98
[2023-03-13 07:07] LABS: Glucose, Whole Blood 113 mg/dL (60-115)
[2023-03-13 08:25] LABS: Prothrombin Time 11.8 SEC (11.1-13.3)
[2023-03-13 08:27] LABS: Partial Thromboplastin Time 28.2 SEC (26.0-36.4)
[2023-03-13 10:30] VITALS: BP 131/74; PULSE 59; RESP 16; TEMP 36.3; O2SAT 95
[2023-03-13 10:45] VITALS: BP 131/76; PULSE 60; RESP 16; O2SAT 95
[2023-03-13 10:59] VITALS: BP 137/81; PULSE 57; RESP 16; TEMP 36.2; O2SAT 96
== END 2023-03-13 11:08 | disposition home or self-care (01) ==
PROVIDERS: Radiology Diagnostic Radiology; PCP Registered Nurse; Visit Provider Radiology Vascular & Interventional Radiology
DX: Z45.2 Encounter for adjustment and management of vascular access device (principal); C64.1 Malignant neoplasm of right kidney, except renal pelvis; Z90.5 Acquired absence of kidney; R91.8 Other nonspecific abnormal finding of lung field; F32.A Depression, unspecified; Z79.85 Long-term (current) use of injectable non-insulin antidiabetic drugs; Z79.899 Other long term (current) drug therapy; Z88.8 Allergy status to other drugs, medicaments and biological substances
CPT/HCPCS: 36415; 36561; 82947; 85610; 85730; 99152; C1769; C1788; J0690; J1642; J2250; J3010

== ENCOUNTER → 2023-03-13 07:53 | Outpatient (BNV) | payer MEDICAID, SELFPAY | PROVIDERS: PCP Registered Nurse; Visit Provider Radiology Vascular & Interventional Radiology | DX: C64.1 Malignant neoplasm of right kidney, except renal pelvis (principal) | CPT/HCPCS: 36561; 76937; 77001 ==

== ENCOUNTER 2023-05-08 09:29 | Day surgery (SDC) | payer MEDICAID, SELFPAY ==
--- NOTE | ~2023-05-08 | IR_ITS ---
CLINICAL HISTORY: Renal cell carcinoma. The patient presents to interventional radiology for placement of a port for chemotherapy. PROCEDURES: 1. Real-time ultrasound-guided access into the left internal jugular vein after documentation of selected vessel patency, and permanent image storing in the patient records. 2. Placement of a 6.6 [place] single-lumen power port. CLINICIAN: Kvng Gibson PA-C MEDICATIONS: - Versed 1.5 mg, Fentanyl 100 mcg, Lidocaine 1% 10 mL SQ -Antibiotics: Ancef 2g -For additional details, please see nursing flowsheet. Complications: None. Estimated blood loss: <5 ml Specimens: None. Contrast: None. Fluoroscopy time: 6.0 min MODERATE SEDATION TIME: 33 min PROCEDURE NOTE: The procedure, risks, benefits, and alternatives were carefully explained to the patient and written informed consent was obtained. The patient was placed supine on the fluoroscopy table. A timeout was performed. The left neck and chest was prepped and draped in usual sterile fashion. Maximum barrier technique was utilized. Local anesthesia was administered to the access site with 1% lidocaine. Under ultrasound guidance, the left internal jugular vein was accessed with a 5 fr micropuncture set. A 0.035 in wire was advanced into the IVC. A peel-away sheath was advanced over the wire and into the SVC, and the wire was removed. Next, subcutaneous lidocaine was administered to the chest. The port pocket was created after the skin incision, utilizing blunt dissection. Using blunt dissection, a subcutaneous tunnel was created that connects from the port pocket to the venotomy site. Through the peel-away sheath, the 6.6 [place] port catheter was placed. The catheter position was verified with fluoroscopy to be at the superior vena cava/right atrial junction. The port was connected to the catheter and was placed in the pocket. The venotomy site was closed with a 3-0 Vicryl subcutaneous suture. The port incision site was closed with interrupted 3-0 Vicryl subcutaneous sutures and surgical glue. Prior to closing the skin, 1 g of Ancef solution was placed in the pocket. The port was tested, flushed, and packed with heparin per routine protocol. The patient tolerated the procedure well. The patient was stable after the procedure and was transferred to the PACU. The procedure was performed under moderate sedation and with a dedicated nurse with continuous monitoring of vital signs. A permanent image of the ultrasound the neck and fluoroscopic image of the chest was saved and sent to PACS. FINDINGS: 1. Patent left internal jugular vein 2. Placement of a 6.6 [place] single lumen power port. 3. Port flushes and aspirates very well with a 10 mL syringe. No pneumothorax. IR/IR cvc insert tunnel w prt/patient relations representative IMPRESSION: Placement of a 6.6 [place] single-lumen power port. PLAN: - The patient will be discharged home when stable by sedation protocol. - Port may be used immediately. This procedure was performed by Kvng Gibson PA-C, and directly supervised by Dr. Carlin
--- NOTE | ~2023-05-08 | IR_ITS ---
CLINICAL HISTORY: Renal cell carcinoma. The patient presents to interventional radiology for placement of a port for chemotherapy. PROCEDURES: 1. Real-time ultrasound-guided access into the left internal jugular vein after documentation of selected vessel patency, and permanent image storing in the patient records. 2. Placement of a 6.6 [place] single-lumen power port. CLINICIAN: Kvng Gibson PA-C MEDICATIONS: - Versed 1.5 mg, Fentanyl 100 mcg, Lidocaine 1% 10 mL SQ -Antibiotics: Ancef 2g -For additional details, please see nursing flowsheet. Complications: None. Estimated blood loss: <5 ml Specimens: None. Contrast: None. Fluoroscopy time: 6.0 min MODERATE SEDATION TIME: 33 min PROCEDURE NOTE: The procedure, risks, benefits, and alternatives were carefully explained to the patient and written informed consent was obtained. The patient was placed supine on the fluoroscopy table. A timeout was performed. The left neck and chest was prepped and draped in usual sterile fashion. Maximum barrier technique was utilized. Local anesthesia was administered to the access site with 1% lidocaine. Under ultrasound guidance, the left internal jugular vein was accessed with a 5 fr micropuncture set. A 0.035 in wire was advanced into the IVC. A peel-away sheath was advanced over the wire and into the SVC, and the wire was removed. Next, subcutaneous lidocaine was administered to the chest. The port pocket was created after the skin incision, utilizing blunt dissection. Using blunt dissection, a subcutaneous tunnel was created that connects from the port pocket to the venotomy site. Through the peel-away sheath, the 6.6 [place] port catheter was placed. The catheter position was verified with fluoroscopy to be at the superior vena cava/right atrial junction. The port was connected to the catheter and was placed in the pocket. The venotomy site was closed with a 3-0 Vicryl subcutaneous suture. The port incision site was closed with interrupted 3-0 Vicryl subcutaneous sutures and surgical glue. Prior to closing the skin, 1 g of Ancef solution was placed in the pocket. The port was tested, flushed, and packed with heparin per routine protocol. The patient tolerated the procedure well. The patient was stable after the procedure and was transferred to the PACU. The procedure was performed under moderate sedation and with a dedicated nurse with continuous monitoring of vital signs. A permanent image of the ultrasound the neck and fluoroscopic image of the chest was saved and sent to PACS. FINDINGS: 1. Patent left internal jugular vein 2. Placement of a 6.6 [place] single lumen power port. 3. Port flushes and aspirates very well with a 10 mL syringe. No pneumothorax. IR/IR us guide venous access IMPRESSION: Placement of a 6.6 [place] single-lumen power port. PLAN: - The patient will be discharged home when stable by sedation protocol. - Port may be used immediately. This procedure was performed by Kvng Gibson PA-C, and directly supervised by Dr. Carlin
[2023-05-08 09:57] VITALS: BP 145/78; PULSE 54; RESP 18; TEMP 36.3; O2SAT 97; BMI 30.9
[2023-05-08 10:06] LABS: Glucose, Whole Blood 82 mg/dL (60-115)
[2023-05-08 13:01] LABS: Glucose, Whole Blood 70 mg/dL (60-115)
[2023-05-08 14:50] VITALS: BP 146/82; PULSE 55; RESP 16; TEMP 36.7; O2SAT 96
[2023-05-08 15:05] VITALS: BP 155/86; PULSE 60; RESP 17; O2SAT 97
[2023-05-08 15:18] LABS: Glucose, Whole Blood 77 mg/dL (60-115)
[2023-05-08 15:20] VITALS: BP 147/84; PULSE 71; RESP 16; O2SAT 98
[2023-05-08 15:35] VITALS: BP 146/77; PULSE 68; RESP 14; TEMP 36.7; O2SAT 99
--- NOTE | 2023-05-12 12:48 | MHC.HEMONC ---
Triage- Pt called because she has not been feeling since she had a port placement procedure on 05/08/23. Pt is throwing up, has back pain, and she not been able to sleep or eat. Msg given to Yanira NARVAEZ
== END 2023-05-08 15:55 | disposition home or self-care (01) ==
PROVIDERS: Radiology Vascular & Interventional Radiology; PCP Registered Nurse; Visit Provider Internal Medicine Medical Oncology
DX: Z45.2 Encounter for adjustment and management of vascular access device (principal); C64.1 Malignant neoplasm of right kidney, except renal pelvis; R91.8 Other nonspecific abnormal finding of lung field; E03.9 Hypothyroidism, unspecified; Z79.899 Other long term (current) drug therapy; Z79.84 Long term (current) use of oral hypoglycemic drugs; Z88.8 Allergy status to other drugs, medicaments and biological substances
CPT/HCPCS: 36561; 76937; 82947; 99152; 99153; C1769; C1788; J0690; J1642; J1644; J2250; J2310; J3010

== ENCOUNTER → 2023-05-08 13:00 | Outpatient (BNV) | payer MEDICAID, SELFPAY | PROVIDERS: PCP Registered Nurse; Visit Provider Radiology Vascular & Interventional Radiology | DX: C64.1 Malignant neoplasm of right kidney, except renal pelvis (principal); Z45.2 Encounter for adjustment and management of vascular access device | CPT/HCPCS: 36561; 76937 ==

== ENCOUNTER 2023-05-22 15:30 | Outpatient (REF) | payer MEDICAID, SELFPAY ==
--- NOTE | ~2023-05-22 | CT_ITS ---
EXAMINATION: CT CHEST, ABDOMEN AND PELVIS WITH CONTRAST CLINICAL INFORMATION: Renal cell carcinoma with lung nodules COMPARISON: CT chest abdomen pelvis most recently on 12/05/2022 TECHNIQUE: Multidetector volumetric imaging was performed from the thoracic inlet through the pubic symphysis following administration of 85 mL Omnipaque 350. Sagittal and coronal reformatted images were obtained on the technologist's workstation. This CT examination was performed using dose optimization techniques as appropriate, variously including the following: *Automated exposure control *Adjustment of mA and/or kV according to patient size (this includes techniques or standardized protocols for targeted exams where dose is matched to indication/reason for exam; i.e. extremities or head) *Use of iterative reconstruction technique DLP: 644.82 mGy-cm FINDINGS: CHEST: Lungs: There has been a significant decrease in size of pulmonary nodules. The previously seen 5 mm pulmonary nodule left lower lobe now measures less than 2 mm (7:262 compare prior 7:124). Previously seen new right lower lobe pulmonary nodule (prior 7:116) is no longer present. In addition, a 4 mm right middle lobe nodule seen previously (prior 7:124) is no longer present. No new pulmonary nodules are seen. Mediastinum: The mediastinum is unremarkable. The central vascular structures are unremarkable. No hilar or mediastinal lymphadenopathy. Coronary Artery Calcium: None seen. Pericardium/Pleura: No significant effusion. No pleural mass or thickening. Chest Wall/Axilla: A left chest wall port has its tip in the proximal right atrium in good position. ABDOMEN/PELVIS: Peritoneal Space: No significant free air or free fluid identified. Liver, Gallbladder, Biliary Tree: The liver is normal in size, shape, and attenuation. No convincing significant focal hepatic lesion or biliary ductal dilatation is present. The gallbladder is contracted but otherwise unremarkable with no evidence of radiopaque gallstones, gallbladder wall thickening, or obvious pericholecystic inflammatory changes. Pancreas: Unremarkable. Spleen: Unremarkable. Adrenal Glands: Unremarkable. Kidneys and Ureters: Status post right nephrectomy. Left kidney appears normal. Please see discussion below regarding left renal vein. Bladder: Unremarkable. Gastrointestinal Tract: The small and large bowel are unremarkable. The appendix is unremarkable. Abdominal Wall: There is a small ventral hernia present just below the level of the umbilicus which contains only fat. Lymph Nodes: No retroperitoneal lymphadenopathy. Vascular: The aorta appears unremarkable. Of note, there is thrombus present in the left renal vein measuring 3.1 cm in length by 8 mm in diameter. This appears to emanate from (or extend into) the left gonadal vein. The IVC is free of thrombus. PELVIC VISCERA: The uterus is not seen. An abnormal adnexal mass is not detected. No free intraperitoneal fluid is present. OSSEUS STRUCTURES: Mild degenerative changes are noted in the spine. No bony destructive lesions are seen to suggest metastatic renal cell carcinoma. CT/CT abdomen pelvis w IV con IMPRESSION: 1. Significant decrease in size of pulmonary nodules. No new pulmonary nodules are seen. 2. No hepatic metastatic disease, local recurrence or intra-abdominal/pelvic adenopathy status post nephrectomy. 3. There is new thrombus present in the left renal vein which appears to emanate from (or extend into) the left gonadal vein. 4. Other incidental findings including small ventral hernia containing only fat. Fleischner guidelines were followed.
[2023-05-22] MEDS: iohexoL 350 MG/ML 75 ML INFUS..BTL 85 ML IV (16:19)
== END 2023-05-22 15:31 | disposition home or self-care (01) ==
LOC: HO.CT 15:30
PROVIDERS: PCP Registered Nurse; Visit Provider Internal Medicine Medical Oncology
DX: C64.9 Malignant neoplasm of unspecified kidney, except renal pelvis (principal); R91.8 Other nonspecific abnormal finding of lung field
CPT/HCPCS: 71260; 74177; Q9967

== ENCOUNTER 2023-06-13 10:26 | Outpatient (REF) | payer MEDICAID, SELFPAY | END 2023-06-13 10:27 | disposition home or self-care (01) | LOC: HO.US 10:26 | PROVIDERS: PCP Registered Nurse; Visit Provider Nurse Practitioner Family | DX: I82.3 Embolism and thrombosis of renal vein (principal); C64.1 Malignant neoplasm of right kidney, except renal pelvis | CPT/HCPCS: 76775; 93975 ==

== ENCOUNTER 2023-06-19 11:34 | Outpatient (REF) | payer MEDICAID, SELFPAY | END 2023-06-19 11:35 | disposition home or self-care (01) | LOC: HO.HHCLNP 11:34 | PROVIDERS: Visit Provider Student in an Organized Health Care Education/Training Program | DX: L08.9 Local infection of the skin and subcutaneous tissue, unspecified (principal) | CPT/HCPCS: 87070; 87077; 87186; 87205 ==

== ENCOUNTER 2023-07-01 11:34 | Outpatient (RCR) | payer MEDICAID, SELFPAY | END 2023-09-15 12:15 | disposition home or self-care (01) | LOC: HO.WCC 11:34 | PROVIDERS: PCP Registered Nurse; Visit Provider Physician Assistant | DX: E11.622 Type 2 diabetes mellitus with other skin ulcer (principal); L98.499 Non-pressure chronic ulcer of skin of other sites with unspecified severity; T81.31XD Disruption of external operation (surgical) wound, not elsewhere classified, subsequent encounter; E11.51 Type 2 diabetes mellitus with diabetic peripheral angiopathy without gangrene; L30.9 Dermatitis, unspecified; C64.9 Malignant neoplasm of unspecified kidney, except renal pelvis; Z92.21 Personal history of antineoplastic chemotherapy | CPT/HCPCS: 97602; 99212 ==

== ENCOUNTER 2023-07-08 12:55 | Outpatient (REF) | payer MEDICAID, SELFPAY ==
[2023-07-08 16:36] LABS: Urine Cytology See Pathology rpt
== END 2023-07-08 12:56 | disposition home or self-care (01) ==
LOC: HO.LNP 12:55
PROVIDERS: PCP Registered Nurse; Visit Provider Nurse Practitioner Family
DX: C64.1 Malignant neoplasm of right kidney, except renal pelvis (principal); I82.3 Embolism and thrombosis of renal vein; Z79.01 Long term (current) use of anticoagulants; Z79.899 Other long term (current) drug therapy
CPT/HCPCS: 81003; 88112; 99212

== ENCOUNTER 2023-07-08 12:55 | Outpatient (AMB) | payer MEDICAID, SELFPAY ==
--- NOTE | 2023-07-08 13:30 | A.OFFVIS_ITS ---
Intake Intake Visit Reasons: US results Intake Note: Patient presents for follow up Renal Cell Carcinoma and Ultrasound Results Imagin06/13/23 Urology Medications: none Blood Thinner: Apixaban Alum Operator Required: Yes Alum Operator Name: TYLER CAMEJOJAGJIT Accompanied by: Self / Same As Patient Allergies phenylephrine [From CONTAC-D COLD (PE)] Allergy (Unknown, Verified 07/08/23 14:23) EDEMA Contac-D Allergy (Unknown, Uncoded 07/08/23 14:23) Unknown Medication List - Last Reconciled 07/08/23 by ARLEY Gan acetaminophen ER 1,300 mg PO Q8H PRN apixaban (Eliquis DVT-PE Treat 30D Start) 5 mg PO BID atorvastatin 1 tab PO BEDTIME baclofen 20 mg PO TID cabozantinib 40 mg PO DAILY docusate sodium 1 cap PO BEDTIME PRN dulaglutide (Trulicity) 0.75 mg subcut QWEEK famotidine 20 mg PO DAILY gabapentin 1 cap PO QPM lancets (TRUEplus Lancets) As directed levothyroxine 25 mcg PO QAM losartan 25 mg PO DAILY Magic Mouthwash Diphen/Lido/Antacid 1:1:1 10 mL PO QID metformin 500 mg PO BID ondansetron 8 mg PO Q8H oxycodone 5 mg PO Q6H PRN propranolol 10 mg PO BID sennosides (Senokot) 8.6 mg PO BID sertraline (Zoloft) 200 mg PO DAILY zolpidem 10 mg PO BEDTIME HPI HPI Comments History of Present Illness Details Krys is a English-speaking 58-year-old female patient of Dr. Naidu. 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 In discussion with the patient today she becomes tearful discussing her ongoing health issues. She reports following up with Oncology later this week 07/10 for chemotherapy. Recent renal imaging results reviewed with the patient today. Right kidney has been removed. The left kidney appears normal no renal masses, renal stones, or hydronephrosis is noted. It appears on previous CT patient was noted to have thrombosis of renal vein however this is not identified on renal ultrasound. She reports having since started Eliquis prescribed by oncology for this issue. She reports having issues with right-sided port for chemotherapy in this has since been removed and a new port has been placed on the left. She reports to be following up with wound care for dressing changes to old right-sided port that has not been healing well. She also reports following up with her psychiatric provider as she at times feels overwhelmed with her medical conditions. She currently denies any bothersome urinary issues. She denies urinary urgency, urinary frequency, incontinence, nocturia, hematuria, dysuria, foul smelling urine, changes to urinary stream, flank pain, fever, and or chills. She is happy with her current voiding parameters. 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 Discussed obtaining MRI of the kidney for further assessment evaluation of thrombosis as recommended by renal ultrasound report. Discussed surveillance imaging chest CT as well as abdominal and pelvis imaging. Discussed surveillance imaging at years 5, 7 and 9 years. The renal mass was diagnosed incidentally, during evaluation for, hematuria ? 09/25 ? Prior treatment(s) included 01/[address] Hui. ? Staging of initial cancer 01/25 , T3a , with no positive lymph nodes, with vein involvement ? - Stage III. ? The diagnosis was renal cell carcinoma, Grade III PFSH Medical History Pulmonary nodules Right renal mass Anxiety Depression Clear cell carcinoma of right kidney Surgical History Hx of colonoscopy History of esophagogastroduodenoscopy (EGD) S/P skin biopsy Status post hysterectomy Family History Maternal Uncle Stomach cancer Maternal Aunt Stomach cancer Paternal Aunt Colon cancer Sister Liver cancer Sister Skin cancer Social History Household Members: None Housing: Apartment Are you a primary career professional to a significant other at home: No Do you presently have visiting nurse or other home services: Yes Alcohol intake: former Patient Tobacco Use Status: Never used Tobacco service: No Current occupational status: unemployed Review of Systems Const Reports as per HPI Eyes Reports no additional complaints ENT Reports no additional complaints Card Reports no additional complaints Resp Reports as per [facility] GI Reports no additional complaints Reports as per [facility] Musc Reports no additional complaints Psych Reports as per HPI Physical Exam Const General: cooperative, healthy appearing, comfortable, no acute distress, well developed, alert and awake Orientation/consciousness: patient oriented x3 Limitations: no limitations HEENT Head: Yes normal to inspection, Yes normocephalic and Yes atraumatic Eyes General: appearance normal, both eyes and all related structures Neck Neck: Yes normal visual inspection and Yes trachea midline Chest Chest palpation & inspection: normal inspection of the chest Resp Effort & Inspection: normal respiratory effort and able to speak in complete sentences Cardio Rate: regular rate GI Inspection: Yes normal to inspection General: Yes no CVA tenderness Back/Spine/Pelvis Back: no CVA tenderness Skin Other: Right upper chest previous chemotherapy port with dressing; continue to follow up with wound care for dressing changes as planned Neuro General: patient oriented x3 Extrem General: Yes normal to inspection Psych Appearance: grossly normal and well kempt Mental Status: mental status grossly normal Speech and movement: Normal speech and movement present and Clear speech present Affect: Sad affect present Attitude: cooperative Thought process: Normal thought process present Thought content: Normal thought content present Insight: Fair insight present (Psych) Judgement: Fair judgement present (Psych) Results AMB Urinalysis, Automated UA Leukoctes 70 Barbara/uL Last Edit by [employer] on 07/08/23 13:36 UA Nitrite Negative Last Edit by [employer] on 07/08/23 13:36 UA Urobilinogen 0.2 mg/dL Last Edit by [employer] on 07/08/23 13:36 UA Protein 30 mg/dL Last Edit by [employer] on 07/08/23 13:36 UA pH 6.0 Last Edit by [employer] on 07/08/23 13:36 UA Blood 0 Deandre/uL Last Edit by [employer] on 07/08/23 13:36 UA Specific [place] 1.030 Last Edit by [employer] on 07/08/23 13:36 UA Ketone Negative Last Edit by [employer] on 07/08/23 13:36 UA Bilirubin 1 mg/dL Last Edit by Angela Drake on 07/08/23 13:36 UA Glucose 0 mg/dL Last Edit by Angela Yepezmadison on 07/08/23 13:36 Results Reviewed Results Reviewed: Laboratory Last Values Urine pH (Auto) 6.0 07/08/23 13:32 Specific [place] (Auto) 1.030 07/08/23 13:32 Urine Protein (Auto) 30 mg/dL 07/08/23 13:32 Glucose (UA)(Auto) 0 mg/dL 07/08/23 13:32 Urine Ketones (Auto) Negative 07/08/23 13:32 Urine Blood (Auto) 0 Deandre/uL 07/08/23 13:32 Urine Nitrite (Auto) Negative 07/08/23 13:32 Urine Bilirubin (Auto) 1 mg/dL 07/08/23 13:32 Urine Urobilinogen (Auto) 0.2 mg/dL 07/08/23 13:32 Leukocyte Esterase (Auto) 70 Barbara/uL 07/08/23 13:32 Date of Service: 06/13/23 EXAMINATION: ULTRASOUND OF THE LEFT KIDNEY WITH LEFT RENAL ARTERY DOPPLER FINDINGS: The right kidney has been removed. The left kidney appears normal measuring 11.5 x 6.4 x 5.4. No renal masses, renal stones or hydronephrosis is seen. Renal cortical thickness appears normal. Velocity measurements in the proximal mid and distal renal arteries are normal. Velocity in the aorta is normal and, therefore, the renal aortic ratios are normal. Segmental resistive indices were measured and these were all normal. The thrombus that was seen on the CT scan on 05/22/2023 is not identified on this ultrasound exam. However, given the resolution of the exam, I cannot be certain that this is not present. Certainly, however, the situation has not progressed to renal vein thrombosis. US/US renal doppler IMPRESSION: The renal vein thrombus seen on the CT scan is not identified on this exam. However, I do not believe that the accuracy and resolution of the ultrasound exam can entirely exclude a small area of thrombus. The disease has certainly not progressed to renal vein thrombosis. A follow-up CT scan with IV contrast or an MRI with contrast could be performed to confirm resolution. Assessment & Plan Assessment & Plan (1) Clear cell carcinoma of right kidney: Comment: status post nephrectomy, at [facility] in January. 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 Marilyn grade 3. Stage IIIA, with renal vein extention. Stutent started on June 17. Code(s): C64.1 - Malignant neoplasm of right kidney, except renal pelvis (2) Renal vein thrombosis: Code(s): I82.3 - Embolism and thrombosis of renal vein Plan In office urinalysis results reviewed with the patient today; as noted above. Recent renal imaging results reviewed with the patient today; as noted above. Will obtain MRI of the kidney for further assessment evaluation. Continue to follow-up with oncology as planned. Continue to follow with wound care for dressing changes to previous right Port-A-Cath site. Patient currently denies any bothersome urinary issues or concerns. She is happy with her current voiding parameters. Emotional support provided. Follow-up in 1 month with imaging to be completed prior; or sooner with any issues, concerns, and or questions. Orders: Orders AMB Urinalysis Automated Today Z13.9 - Encounter for screening, unspecified MR kidney wo/w con Today C64.1 - Malignant neoplasm of right kidney, except renal pelvis, I82.3 - Embolism and thrombosis of renal vein Urine Cytology Today C64.1 - Malignant neoplasm of right kidney, except renal pelvis Patient Instructions: The patient had an opportunity to ask questions regarding the treatment plan. All questions were answered. Physical exam, labs, and imaging were discussed and reviewed in detail. As well as risks, benefits, and discussion of treatment choices. No major barriers to understanding were identified. The patient expressed understanding and agreement with the above treatment plan. The patient was made aware they should contact our office by phone for worsening of their current condition, the appearance of new symptoms, or with any questions or concerns. Compliance is encouraged with any medications and follow up testing that is ordered. It is a privilege to be allowed the opportunity to participate in? your urological care.? Again, if you have any questions or concerns If you have any questions or concerns please do not hesitate to contact me. The office is [phone]. This note is constructed using voice recognition software. While every effort has been made to ensure accuracy stock room manager errors may have been included. Yours sincerely, ARLEY Gan Coding Level of Care Code Est Pt Level 4 (80377) Diagnoses Clear cell carcinoma of right kidney C64.1 Renal vein thrombosis I82.3 Time Spent (min) 40
== END 2023-07-08 14:18 | disposition home or self-care (01) ==
PROVIDERS: PCP Registered Nurse; Visit Provider Nurse Practitioner Family
DX: C64.1 Malignant neoplasm of right kidney, except renal pelvis (principal); I82.3 Embolism and thrombosis of renal vein
CPT/HCPCS: 99214

== ENCOUNTER 2023-07-23 09:53 | Outpatient (REF) | payer MEDICAID, SELFPAY ==
[2023-07-23 11:29] LABS: Appearance Urine Clear; Color Urine Yellow; Glucose Urine UA Negative (Negative); Leukocyte Esterase Urine Small (1+) (Negative); Nitrite Urine Negative (Negative); PH 5.5 (5.0-9.0); Specific Gravity - Urine 1.025 (1.005-1.025); UMIC TRIGGER UACC YES; Urine Blood Negative (Negative); Urine Ketones Negative (Negative); Urine Protein Negative (Neg-Trace)
[2023-07-23 11:30] LABS: MANUAL DIFF FLAG NO
[2023-07-23 11:33] LABS: Bacteria Urine None Seen (None Seen); Hyaline Casts Urine 0-2 /LPF (0-2); RBC Urine 0-2 /HPF (0-2); UACC Culture Trigger YES
[2023-07-23 11:44] LABS: Basophils Percent Auto 0.3 % (0-2); Eosinophils Absolute Auto 0.1 X10*3/uL (0.0-0.4); Eosinophils Percent Auto 1.6 % (0-4); Hematocrit 36.4 % (37.0-47.0); Hemoglobin 12.6 g/dl (12.0-16.0); Imm Gran Abs Auto 0.01 X10*3/uL (0.00-0.03); Imm Gran Pct Auto 0.3 % (0.0-0.4); Lymphocytes Percent Auto 27.3 % (20-40); Mean Corpuscular HGB Conc 34.6 g/dl (31.0-35.0); Mean Corpuscular Hemoglobin 33.5 pg (27.0-33.0); Mean Corpuscular Volume 96.8 fL (80.0-98.0); Mean Platelet Volume 10.8 fL (9.4-12.3); Monocytes Absolute Auto 0.2 X10*3/uL (0.1-1.2); Monocytes Percent Auto 6.3 % (2-11); Neutrophils Absolute Auto 2.4 x10*3/uL (2.0-8.3); Neutrophils Percent Auto 64.2 % (45-73); Platelet Count 160 X10*3/uL (160-400); Red Blood Count 3.76 X10*6/uL (4.20-5.50); Red Cell Distribution Width 13.7 % (11.0-16.0); White Blood Count 3.7 X10*3/uL (4.8-10.8)
[2023-07-23 11:56] LABS: Estimated Average Glucose 114 mg/dL; Hemoglobin A1c % 5.6 % (<6.0)
[2023-07-23 12:10] LABS: Cholesterol 153 mg/dL (<200); HDL Cholesterol 39 mg/dL (>40); LDL Cholesterol Calculated 100 mg/dL (<100); Triglycerides 71 mg/dL (<150)
[2023-07-23 12:24] LABS: Alanine Aminotransferase 28 U/L (0-31); Albumin Level 3.8 g/dL (3.5-5.0); Alkaline Phosphatase 74 U/L (39-117); Anion Gap 9 (12-20); Aspartate Amino Transferase 27 U/L (5-31); Bilirubin Direct 0.3 mg/dL (0.0-0.5); Bilirubin Total 0.8 mg/dL (0.0-1.0); Blood Urea Nitrogen 10 mg/dL (9-16); Carbon Dioxide 29 mmol/L (22-29); Chloride 108 mmol/L (96-108); Estimated Glomerular Filt Rate > 60; Free T4 (Free Thyroxine) 0.55 ng/dL (0.71-1.85); Glucose Random 98 mg/dL (60-115); Potassium 3.9 mmol/L (3.3-5.1); Sodium 142 mmol/L (135-145); Thyroid Stimulating Hormone 46.53 uIU/mL (0.32-4.0); Total Protein 6.8 g/dL (6.5-8.0)
[2023-07-23 12:28] LABS: Creatinine Urine 213.14 mg/dL; Microalbum/Creatinine Ratio Ur 7.5 ug/mg cr (<30)
[2023-07-23 12:40] LABS: Folate 8.6 ng/mL (> or = 4.0); Vitamin B12 253 pg/mL (200-900)
[2023-07-23 13:32] LABS: CT PCR NOT DETECTED (Not Detect.); NG PCR NOT DETECTED (Not Detect.)
[2023-07-24 03:49] LABS: Syphilis Screen Nonreactive (Nonreactive)
[2023-07-24 04:16] LABS: HBS Num1 1.15 mIU/mL (0-7.99); HBc Num1 0.09 S/CO (0.00-0.79); HBsAGNum1 0.45 S/CO (0.00-0.99); HIV AB/AG Nonreactive (Nonreactive); HIV Num 1 0.33 S/CO (0.00-0.99); Hepatitis B Core Antibody Nonreactive (Nonreactive); Hepatitis B Surface Antigen Negative (Negative); ~HepC Num1 0.07 S/CO (0.00-0.79); ~Hepatitis B Surface Antibody NONREACTIVE (Nonreactive); ~Hepatitis C Antibody Nonreactive (Nonreactive)
[2023-07-27 13:09] LABS: VITAMIN D (1,25 OH) D3 70 pg/mL; Vit D (1,25-Dihydroxy) Total 70 pg/mL (18-72); Vitamin D (1,25 OH) D2 <8 pg/mL
== END 2023-07-23 09:54 | disposition home or self-care (01) ==
LOC: HO.HHCL 09:53
PROVIDERS: Internal Medicine Medical Oncology; Visit Provider Student in an Organized Health Care Education/Training Program
DX: Z00.00 Encounter for general adult medical examination without abnormal findings (principal); E03.9 Hypothyroidism, unspecified; C64.9 Malignant neoplasm of unspecified kidney, except renal pelvis; N89.8 Other specified noninflammatory disorders of vagina
CPT/HCPCS: 0353U; 36415; 80053; 80061; 81001; 82043; 82248; 82570; 82607; 82652; 82746; 83036; 84439; 84443; 85025; 86704; 86706; 86780; 86803; 87086; 87340; 87389

== ENCOUNTER 2023-08-08 11:58 | Emergency (ER) | payer MEDICAID, SELFPAY ==
--- NOTE | ~2023-08-08 | CT_ITS ---
EXAMINATION: CT ABDOMEN AND PELVIS WITH CONTRAST CLINICAL INFORMATION: Past history of renal cell carcinoma with lung nodules. Now presents with upper abdominal pain worse with eating and vomiting COMPARISON: Ultrasound abdomen 06/13/2023. CT abdomen 05/22/2023. TECHNIQUE: Multidetector volumetric images were obtained from the superior aspect of the liver through the pubic symphysis following administration 85 mL of Omnipaque 350 intravenous contrast. Sagittal and coronal reformatted images were obtained on the technologist's workstation. Oral contrast: No This CT examination was performed using dose optimization techniques as appropriate, variously including the following: *Automated exposure control *Adjustment of mA and/or kV according to patient size (this includes techniques or standardized protocols for targeted exams where dose is matched to indication/reason for exam; i.e. extremities or head) *Use of iterative reconstruction technique DLP: 528 mGy-cm FINDINGS: LUNG BASES: The visualized lung bases are unremarkable. LIVER, GALLBLADDER, AND BILIARY TREE: The liver is normal in size, shape, and attenuation. No focal hepatic lesion or biliary ductal dilatation is present. The gallbladder is unremarkable with no evidence of radiopaque gallstones, gallbladder wall thickening, or obvious pericholecystic inflammatory changes. PANCREAS: Unremarkable. SPLEEN: Unremarkable. ADRENAL GLANDS: The left adrenal gland is unremarkable. The right adrenal gland is not visualized. KIDNEYS AND URETERS: The right kidney has been surgically removed. The left kidney appears unremarkable. BLADDER: Unremarkable. GASTROINTESTINAL TRACT: There is scattered stool and gas seen in the colon without significant distention. The small bowel loops are normal caliber. The stomach is nondistended. Appendix is nonvisualized ABDOMINAL WALL: There is a infraumbilical midline abdominal hernia containing fat. LYMPH NODES: Normal. VASCULAR: The abdominal aorta is of normal caliber. The left renal vein is well opacified without any visible thrombus. PELVIC VISCERA: Unremarkable. OSSEOUS STRUCTURES: Unremarkable. CT/CT abdomen pelvis w IV con IMPRESSION: 1. No acute intra-abdominal process seen. 2. Mild constipation. 3. Infraumbilical midline abdominal hernia containing fat. 4. Status post right nephrectomy. Left kidney is unremarkable. Left renal vein is patent. Fleischner guidelines were followed.
[2023-08-08 12:16] VITALS: BP 128/86; PULSE 82; RESP 16; TEMP 36.2; O2SAT 99; BMI 25.8
--- NOTE | 2023-08-08 12:19 | ED_ITS ---
HPI - General Adult General Chief complaint: Nausea/Vomiting/Diarrhea Stated complaint: wound site hurts, fatigue, unable to eat Time Seen by Provider: 08/08/23 17:36 History of Present Illness HPI narrative: The patient is a 58-year-old woman with a history of renal cell carcinoma who has had a right nephrectomy. She has left-sided pulmonary nodules and I believe represent metastatic disease. She presents to the emergency room with one-week of frequent vomiting. She says last Friday she received a hepatitis vaccine and she has been having problems with vomiting ever since. She describes upper abdominal pain when she eats and frequent vomiting. She has not had fever. The patient has a Port-A-Cath in the left chest. She previously had Port-A-Cath in the right chest which got infected and was removed. She has been complaining of pain at the previous right Port-A-Cath site for some time. The wound in the region where the port was removed has not yet fully healed and she performs fairly meticulous wound care to the persistent but improving wound in the right upper chest. Related Data Home Medications Medication Instructions Recorded Confirmed losartan 25 mg tablet 25 mg PO DAILY 09/18/20 12/24/22 metformin 500 mg tablet 500 mg PO BID 09/18/20 12/24/22 lancets 33 gauge (TRUEplus Lancets) #100 ea 04/05/21 12/19/22 zolpidem 10 mg tablet 10 mg PO BEDTIME 04/05/21 12/24/22 docusate sodium 100 mg capsule 1 cap PO BEDTIME PRN Constipation 07/12/21 12/24/22 gabapentin 300 mg capsule 1 cap PO QPM 07/12/21 12/24/22 atorvastatin 10 mg tablet 1 tab PO BEDTIME 02/01/22 12/24/22 acetaminophen 650 mg 1,300 mg PO Q8H PRN Pain 04/24/22 12/24/22 tablet,extended release baclofen 20 mg tablet 20 mg PO TID 04/24/22 12/24/22 dulaglutide 0.75 mg/0.5 mL 0.75 mg subcut QWEEK 04/24/22 12/24/22 subcutaneous pen injector ([facility]) levothyroxine 25 mcg tablet 25 mcg PO QAM 04/24/22 05/29/23 propranolol 10 mg tablet 10 mg PO BID 04/24/22 12/24/22 sertraline 100 mg tablet (Zoloft) 200 mg PO DAILY 12/18/22 12/24/22 famotidine 20 mg tablet 20 mg PO DAILY 12/19/22 12/24/22 oxycodone 5 mg tablet 5 mg PO Q6H PRN severe pain 12/19/22 12/24/22 Previous Rx's Medication Instructions Recorded ondansetron 8 mg disintegrating 8 mg PO Q8H #60 tabs 01/02/23 tablet sennosides 8.6 mg tablet (Senokot) 8.6 mg PO BID #90 tabs 01/09/23 cabozantinib 40 mg tablet 40 mg PO DAILY #90 tabs 06/23/23 apixaban 5 mg (74 tabs) tablets in 5 mg PO BID #74 ea 07/09/23 a dose pack (Eliquis DVT-PE Treat 30D Start) levothyroxine 75 mcg tablet 75 mcg PO DAILY #30 tabs 07/23/23 (Synthroid) Magic Mouthwash 10 ml PO QID #240 mL 07/24/23 Diphen/Lido/Antacid 1:1:1 240 mL suspension apixaban 5 mg tablet (Eliquis) 5 mg PO BID #60 tabs 07/24/23 butenafine 1 % topical cream 1 appl topical BID #45 grams 07/24/23 (Lotrimin Ultra) omeprazole 40 mg capsule,delayed 40 mg PO DAILY #30 caps 08/08/23 release ondansetron 4 mg disintegrating 4 mg PO Q6H PRN nausea and 08/08/23 tablet vomiting #10 tabs sucralfate 1 gram tablet 1 g PO TID PRN upper abdominal 08/08/23 pain #30 tabs Allergies Allergy/AdvReac Type Severity Reaction Status Date / Time phenylephrine Allergy Unknown EDEMA Verified 07/08/23 14:23 [From CONTAC-D COLD (PE)] Contac-D Allergy Unknown Unknown Uncoded 07/08/23 14:23 Review of Systems 2 Review of Systems: Yes all other systems are reviewed and are negative PMFSH Past Medical History Medical History Pulmonary nodules Right renal mass Anxiety Depression Clear cell carcinoma of right kidney Surgical History Hx of colonoscopy History of esophagogastroduodenoscopy (EGD) S/P skin biopsy Status post hysterectomy Family History Family History Maternal Uncle Stomach cancer Maternal Aunt Stomach cancer Paternal Aunt Colon cancer Sister Liver cancer Sister Skin cancer Social History Social History Household Members: None Housing: Apartment Are you a primary primary care pediatrician to a significant other at home: No Do you presently have visiting nurse or other home services: Yes Alcohol intake: former Patient Tobacco Use Status: Never used Tobacco Smoked in Last 30 Days: No Use of substances other than those prescribed or required for medical reasons: No Advance Directives: No Advance Directives Information Provided: No Patient : No service: No Current occupational status: unemployed Physical Exam ED Vital Signs: Vital Signs - 24 hr 08/08/23 12:16 08/08/23 19:30 08/08/23 20:30 Temperature 97.1 F Pulse Rate 82 62 Respiratory Rate 16 18 12 Blood Pressure 128/86 123/73 Pulse Oximetry 99 95 Oxygen Delivery Method Room Air Room Air 08/08/23 22:32 Temperature 97.5 F Pulse Rate 61 Respiratory Rate 16 Blood Pressure 104/68 Pulse Oximetry 96 Oxygen Delivery Method Room Air BMI result Body Mass Index 25.8 Const Other: The patient is somewhat chronically ill-appearing 58-year-old who was awake and alert and does not appear obviously ill although she looks somewhat HENMT Other: Face is symmetrical. Mucous membranes are not obviously dry. Eyes Other: Pupils are round equal, conjunctivae clear, no scleral icterus. Neck Other: No cervical adenopathy, neck is supple Chest Other: The patient had a bandage on a wound in the right upper chest anteriorly at the site of a prior Port-A-Cath. I removed the bandage. There is a lesion about the size of a nickel that seems to be a slowly healing wound. No purulence. No surrounding erythema. No obvious acute change. Resp Effort & Inspection: normal respiratory effort Auscultation: clear to auscultation bilaterally Cardio Rate: regular rate Rhythm: regular rhythm Heart sounds: S1 normal heart sound present and S2 normal heart sound present GI Other: The abdomen soft. There was diffuse tenderness that was maximal in the epigastrium. Back/Spine/Pelvis Other: No CVA percussion tenderness Skin Other: Skin was pale and dry Neuro Other: The patient was awake and alert, speech was clear, moving extremities normally, gait was normal, grossly neurologically intact Extrem Other: No peripheral edema Course Course Course Narrative: RME- 58-year-old female presents for evaluation of vomiting and weakness after receiving hepatitis vaccine. She reports that she has not been able to eat anything all week. She is followed by Dr. Erickson for renal cell carcinoma. Plan for labs, UA Medications Administered Discontinued Medications Generic Name Dose Route Start Last Admin Trade Name Freq PRN Reason Stop Dose Admin Famotidine 20 mg 08/08/23 18:12 08/08/23 19:58 Famotidine/Pf 20 Mg/2 Ml Vial IVPUSH 08/08/23 18:13 20 mg ONCE ONE Administration Sodium Chloride 1,000 mls @ 999 mls/hr 08/08/23 18:15 08/08/23 20:28 Ns IV 08/08/23 19:15 Infused .Q1H1M OLIVER Infusion Promethazine HCl 12.5 mg/ 50.5 mls @ 202 mls/hr 08/08/23 18:11 08/08/23 20:13 Sodium Chloride IV 08/08/23 18:12 Infused ONCE ONE Infusion Sodium Chloride 1,000 mls @ 999 mls/hr 08/08/23 21:00 08/08/23 22:09 Ns IV 08/08/23 22:00 Infused .Q1H1M [facility] Infusion Iohexol 85 ml 08/08/23 19:55 08/08/23 19:55 Iohexol 350 Mg/Ml 100 Ml Infus..Btl IV 08/08/23 19:56 85 ml ONCE ONE Administration Morphine Sulfate 4 mg 08/08/23 18:11 08/08/23 19:30 Morphine Sulfate 4 Mg/Ml Cartridge IVPUSH 08/08/23 18:12 4 mg ONCE ONE Administration Protocol Sucralfate 1 gm 08/08/23 21:57 08/08/23 22:33 Sucralfate Oral Suspension 1 Gm/10 Ml Oral.Susp PO 08/08/23 21:58 1 gm ONCE ONE Administration Medical Decision Making Medical Decision Making [facility] Narrative: The patient is a 58-year-old woman with a history of renal cell cancer and a right nephrectomy. She has metastatic disease that is being managed by Dr. Erickson. She presents with approximately 1 week of not feeling well with nausea and vomiting and epigastric pain. The patient's laboratory evaluation is most remarkable for significant increase in her hemoglobin and hematocrit since her last blood testing 2 weeks ago. Her hemoglobin today is 15.3. It was 11.9 on July 24 2 weeks ago. This would suggest significant hemo concentration likely secondary to dehydration as a result of the nausea and vomiting the patient describes. Additionally her kidney function is mildly worse. Her estimated creatinine clearance today is 60.3. It was 852 weeks ago. Her creatinine is 1.1. Previous creatinine 0.78. Surprisingly her BUN is not significantly higher. A CT of the abdomen and pelvis does not show any acute intra-abdominal process to account for her vomiting. Perhaps this was some kind of reaction to the vaccine she received or perhaps she has some degree of gastritis. She felt considerably better with IV hydration and after 2 L of IV fluids she felt well enough to go home. She will be discharged with a prescription for omeprazole which will take the place of her current famotidine. She was also given a prescription for ondansetron and for sucralfate. She looked quite well at discharge. Lab Data 08/08/23 12:25 08/08/23 12:25 Labs: Lab Results 08/08/23 08/08/23 Range/Units 12:25 16:20 WBC 4.2 L (4.8-10.8) X10*3/uL RBC 4.52 D (4.20-5.50) X10*6/uL Hgb 15.3 D (12.0-16.0) g/dl Hct 42.9 D (37.0-47.0) % MCV 94.9 (80.0-98.0) fL MCH 33.8 H (27.0-33.0) pg MCHC 35.7 H (31.0-35.0) g/dl RDW 13.5 (11.0-16.0) % Plt Count 189 (160-400) X10*3/uL MPV 10.5 (9.4-12.3) fL Immature Gran % (Auto) 0.2 (0.0-0.4) % Neut % (Auto) 58.4 (45-73) % Lymph % (Auto) 33.1 (20-40) % [place] % (Auto) 5.9 (2-11) % Eos % (Auto) 1.7 (0-4) % Baso % (Auto) 0.7 (0-2) % Lymph # (Auto) 1.4 (1.2-4.9) X10*3/uL [place] # (Auto) 0.3 (0.1-1.2) X10*3/uL Eos # (Auto) 0.1 (0.0-0.4) X10*3/uL Baso # (Auto) 0.0 (0.0-0.2) X10*3/uL Abs Immat Gran (auto) 0.01 (0.00-0.03) X10*3/uL Absolute Neuts (auto) 2.5 (2.0-8.3) x10*3/uL Absolute Nucleated RBC 0.000 (0.0-0.012) X10*3/uL Nucleated RBC % (auto) 0.0 (0.0-0.2) /100WBC Sodium 141 (135-145) mmol/L Potassium 4.2 (3.3-5.1) mmol/L Chloride 105 (96-108) mmol/L Carbon Dioxide 27 (22-29) mmol/L Anion Gap 13 (12-20) BUN 12 (9-16) mg/dL Creatinine 1.10 (0.5-1.4) mg/dL Estim Creat Clear Calc 60.3 Estimated GFR 51 Random Glucose 106 (60-115) mg/dL Calcium 9.9 D (8.4-10.2) mg/dL Total Bilirubin 1.5 H (0.0-1.0) mg/dL AST 31 (5-31) U/L ALT 31 (0-31) U/L Alkaline Phosphatase 81 (39-117) U/L Total Protein 7.4 (6.5-8.0) g/dL Albumin 4.1 (3.5-5.0) g/dL Lipase 27 (8-78) U/L Urine Color Dark Yellow Urine Appearance Cloudy Urine pH 5.5 (5.0-9.0) Ur Specific [place] >= 1.030 H (1.005-1.025) Urine Protein 30 (1+) H (Neg-Trace) mg/dL Urine Glucose (UA) Negative (Negative) mg/dL Urine Ketones 15 (Negative) mg/dL Urine Blood Negative (Negative) Urine Nitrite Negative (Negative) Ur Leukocyte Esterase Small (1+) H (Negative) Urine RBC 0-2 (0-2) /HPF Urine WBC 6-10 (0-5) /HPF Ur Squamous Epith Cells >20 (0-2) /HPF Calcium Oxalate Crystal Present Urine Bacteria 1+ (None Seen) Hyaline Casts 6-10 (0-2) /LPF Discharge Plan Discharge Clinical Impression: Acute upper abdominal pain, Nausea & vomiting, Acute dehydration Patient Disposition: Home, Self-Care Instructions: Gastritis (ED) Additional Instructions: Your testing indicated that you were quite dehydrated. However otherwise there was no obvious acute dangerous process at work. You may have some degree of gastritis. This is a problem with stomach acid irritating the lining of the stomach. You are currently taking a medication called famotidine. I have sent a prescription for medication called omeprazole. I would recommend trying omeprazole instead of famotidine for a month. I have also sent a prescription for medication called sucralfate that you may use for stomach pain on an as-needed basis. You do not need to take it regularly. I have also sent a prescription for medication for ondansetron which you may use as needed for nausea. Please continue your other medications. Continue to take fluids this weekend. Please follow-up soon with your regular doctor for re-evaluation and a 2nd opinion. Prescriptions: New omeprazole 40 mg capsule,delayed release(DR/EC) 40 mg PO DAILY Qty: 30 0RF sucralfate 1 gram tablet 1 g PO TID PRN (Reason: upper abdominal pain) Qty: 30 0RF ondansetron 4 mg tablet,disintegrating 4 mg PO Q6H PRN (Reason: nausea and vomiting) Qty: 10 0RF No Action levothyroxine [Synthroid] 75 mcg Tablet 75 mcg PO DAILY Qty: 30 3RF metformin 500 mg Tablet 500 mg PO BID losartan 25 mg Tablet 25 mg PO DAILY docusate sodium 100 mg capsule 1 cap PO BEDTIME PRN (Reason: Constipation) gabapentin 300 mg capsule 1 cap PO QPM atorvastatin 10 mg tablet 1 tab PO BEDTIME ondansetron 8 mg Tablet,Disintegrating 8 mg PO Q8H Qty: 60 4RF sennosides [Senokot] 8.6 mg Tablet 8.6 mg PO BID Qty: 90 0RF cabozantinib 40 mg Tablet 40 mg PO DAILY Qty: 90 0RF Eliquis DVT-PE Treat 30D Start 5 mg (74 tabs) Tablets,Dose Pack 5 mg PO BID Qty: 74 0RF Rx Instructions: TAKE 10 MG P.O. B.I.D. FOR 7 DAYS. THEN TAKE 5 MG P.O. B.I.D. Magic Mouthwash Diphen/Lido/Antacid 1:1:1 240 mL Suspension 10 ml PO QID Qty: 240 3RF Rx Instructions: Lidocaine Viscous 2 % 80mL; diphenhydramine 12.5 mg/5 mL 80mL; aluminum-mag hydrox-simeth [id number]/5mL 80mL butenafine [Lotrimin Ultra] 1 % Cream 1 appl TOPICAL BID Qty: 45 2RF Eliquis 5 mg Tablet 5 mg PO BID Qty: 60 3RF famotidine 20 mg tablet 20 mg PO DAILY oxycodone 5 mg tablet 5 mg PO Q6H PRN (Reason: severe pain) zolpidem 10 mg tablet 10 mg PO BEDTIME (DME) lancets [TRUEplus Lancets] 33 gauge misc See Rx Instructions Not Applicable TID Qty: 100 Rx Instructions: As directed sertraline [Zoloft] 100 mg tablet 200 mg PO DAILY propranolol 10 mg tablet 10 mg PO BID Trulicity 0.75 mg/0.5 mL pen injector 0.75 mg subcut QWEEK levothyroxine 25 mcg tablet 25 mcg PO QAM Rx Instructions: pt to take 50mcg daily baclofen 20 mg tablet 20 mg PO TID acetaminophen 650 mg tablet extended release 1,300 mg PO Q8H PRN (Reason: Pain) Referrals: Kristy Wilder MD [Physician] - (Abdominal pain, vomiting, dehydration) Interventions: ED Discharge Assessment Last Done: 08/08/23 22:50 Discharge Date/Time: 08/08/23 22:51
[2023-08-08 12:33] LABS: MANUAL DIFF FLAG NO
[2023-08-08 12:34] LABS: Basophils Percent Auto 0.7 % (0-2); Eosinophils Absolute Auto 0.1 X10*3/uL (0.0-0.4); Eosinophils Percent Auto 1.7 % (0-4); Hematocrit 42.9 % (37.0-47.0); Hemoglobin 15.3 g/dl (12.0-16.0); Imm Gran Abs Auto 0.01 X10*3/uL (0.00-0.03); Imm Gran Pct Auto 0.2 % (0.0-0.4); Lymphocytes Absolute Auto 1.4 X10*3/uL (1.2-4.9); Lymphocytes Percent Auto 33.1 % (20-40); Mean Corpuscular HGB Conc 35.7 g/dl (31.0-35.0); Mean Corpuscular Hemoglobin 33.8 pg (27.0-33.0); Mean Corpuscular Volume 94.9 fL (80.0-98.0); Mean Platelet Volume 10.5 fL (9.4-12.3); Monocytes Absolute Auto 0.3 X10*3/uL (0.1-1.2); Monocytes Percent Auto 5.9 % (2-11); Neutrophils Absolute Auto 2.5 x10*3/uL (2.0-8.3); Neutrophils Percent Auto 58.4 % (45-73); Platelet Count 189 X10*3/uL (160-400); Red Blood Count 4.52 X10*6/uL (4.20-5.50); Red Cell Distribution Width 13.5 % (11.0-16.0); White Blood Count 4.2 X10*3/uL (4.8-10.8)
[2023-08-08 12:58] LABS: Alanine Aminotransferase 31 U/L (0-31); Albumin Level 4.1 g/dL (3.5-5.0); Alkaline Phosphatase 81 U/L (39-117); Anion Gap 13 (12-20); Aspartate Amino Transferase 31 U/L (5-31); Bilirubin Total 1.5 mg/dL (0.0-1.0); Blood Urea Nitrogen 12 mg/dL (9-16); Calcium 9.9 mg/dL (8.4-10.2); Carbon Dioxide 27 mmol/L (22-29); Chloride 105 mmol/L (96-108); Creatinine Clr Calc Pharmacy 60.3; Estimated Glomerular Filt Rate 51; Glucose Random 106 mg/dL (60-115); Lipase 27 U/L (8-78); Potassium 4.2 mmol/L (3.3-5.1); Sodium 141 mmol/L (135-145); Total Protein 7.4 g/dL (6.5-8.0)
[2023-08-08 16:29] LABS: Appearance Urine Cloudy; Color Urine Dark Yellow; Glucose Urine UA Negative (Negative); Leukocyte Esterase Urine Small (1+) (Negative); Nitrite Urine Negative (Negative); PH 5.5 (5.0-9.0); Specific Gravity - Urine >= 1.030 (1.005-1.025); UMIC TRIGGER UACC YES; Urine Blood Negative (Negative); Urine Ketones 15 mg/dL (Negative); Urine Protein 30 (1+) mg/dL (Neg-Trace)
[2023-08-08 17:08] LABS: Bacteria Urine 1+ (None Seen); Calcium Oxalate Crystals Urine Present; RBC Urine 0-2 /HPF (0-2); Squamous Epithelial Cell Urine >20 /HPF (0-2); UACC Culture Trigger YES
[2023-08-08] MEDS: 0.9 % Sodium Chloride 1,000 ML 999 ML IV ×2 (19:27→21:08)
[2023-08-08 19:30] VITALS: RESP 18
[2023-08-08] MEDS: Morphine Sulfate 4 MG/ML CARTRIDGE IVPUSH (19:30)
[2023-08-08] MEDS: iohexoL 350 MG/ML 100 ML INFUS..BTL 85 ML IV (19:55)
[2023-08-08] MEDS: Famotidine/PF 20 MG/2 ML VIAL IVPUSH (19:58)
[2023-08-08 20:30] VITALS: BP 123/73; PULSE 62; RESP 12; O2SAT 95
--- NOTE | 2023-08-08 21:09 | PC.NURSE ---
pt verbalizing pain level decreased to a 2/10 post medication administration. pt states she is no longer nauseous. IVF administered per provider order. pt waiting for CT results at this time. family bedside for support. call arreola placed within reach.
[2023-08-08 22:32] VITALS: BP 104/68; PULSE 61; RESP 16; TEMP 36.4; O2SAT 96
[2023-08-08] MEDS: Sucralfate Oral Suspension 1 GM/10 ML ORAL.SUSP PO (22:33)
== END 2023-08-08 22:51 | disposition home or self-care (01) ==
PROVIDERS: Physician Assistant; Emergency Provider Emergency Medicine
DX: R11.2 Nausea with vomiting, unspecified (principal); E86.0 Dehydration; R10.10 Upper abdominal pain, unspecified; R91.8 Other nonspecific abnormal finding of lung field; Z85.528 Personal history of other malignant neoplasm of kidney; Z90.5 Acquired absence of kidney
CPT/HCPCS: 36415; 74177; 80053; 81001; 83690; 85025; 87086; 96361; 96374; 96375; 99284; J2270; J2550; Q9967

== ENCOUNTER 2023-08-12 13:13 | Outpatient (AMB) | payer MEDICAID, SELFPAY ==
[2023-08-12 13:16] VITALS: BMI 25.7
--- NOTE | 2023-08-12 13:16 | MHC.OFFVIS ---
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 States she has swelling on the Right LE and has worsened s/p cancer treatment. Has burning and itching over VV. This has been going on for multiple years. Cytologist Required: Yes Cytologist Language: Maintenance Associate Name: Aryan Huddleston Information Interpreted: clinical only Allergies phenylephrine [From CONTAC-D COLD (PE)] Allergy (Unknown, Verified 07/08/23 14:23) EDEMA Contac-D Allergy (Unknown, Uncoded 07/08/23 14:23) Unknown HPI [employer] VV HPI Details Pleasant 58-year-old female patient presents for painful varicose veins. Complaints include pain over varicosities, swelling of lower extremities, cramping, fatigue, and heaviness of the lower extremities. It has been affecting there daily activities including walking. It is noted more so in right leg. Of note she does have a history of renal cell carcinoma with lung metastases. She also has a nephrectomy. She is being maintained on Eliquis Patient denies any previous venous surgery or injections. Patient denies any history of DVT/ PE. Patient denies any history of phlebitis. Trial of compression includes - [id number] They now present for vascular evaluation regarding their varicose veins. [facility] Medical History Pulmonary nodules Right renal mass Anxiety Depression Clear cell carcinoma of right kidney Surgical History Hx of colonoscopy History of esophagogastroduodenoscopy (EGD) S/P skin biopsy Status post hysterectomy Family History Maternal Uncle Stomach cancer Maternal Aunt Stomach cancer Paternal Aunt Colon cancer Sister Liver cancer Sister Skin cancer Social History Household Members: None Housing: Apartment Are you a primary care trainer to a significant other at home: No Do you presently have visiting nurse or other home services: Yes Alcohol intake: former Patient Tobacco Use Status: Never used Tobacco service: No Current occupational status: unemployed Review of Systems Const Reports as per HPI ENT Reports no additional complaints Card Denies chest pain, Denies chest pain at rest and Denies chest pain with activity Resp Denies chest congestion and Denies cough GI Reports no additional complaints Musc Details: pain over varicosities, aching of lower extremities, swelling, cramping, heaviness and tiredness, itching Denies abnormal gait Skin/Breast Reports pruritus and Denies wounds Neuro Reports no additional complaints and Denies abnormal gait Psych Denies no additional complaints Physical Exam Vital Signs: BMI result Body Mass Index 25.7 Const General: cooperative, healthy appearing and comfortable Orientation/consciousness: oriented to person, oriented to place and oriented to time Neck Carotids: no bruits Chest Chest palpation & inspection: normal inspection of the chest and normal palpation of entire chest wall Resp Effort & Inspection: normal respiratory effort and able to speak in complete sentences Cardio Rate: regular rate Heart sounds: S1 normal heart sound present and S2 normal heart sound present Peripheral pulses: Peripheral pulses 2+ throughout GI Inspection: Yes normal to inspection Skin Other: +2 edema, large rope-like varicosities greater than 4 mm CEAP Classification C4 - skin color changes Ep - Etiology Primary As - superficial veins P - reflux General skin exam: dry skin Neuro General: oriented to person, oriented to place and oriented to time Extrem Right lower extremity: full ROM, normal capillary refill and edema Left lower extremity: full ROM, normal capillary refill and edema Psych Mental Status: mental status grossly normal Assessment & Plan Assessment & Plan (1) Varicose veins of right lower extremity with inflammation: Code(s): I83.11 - Varicose veins of right lower extremity with inflammation Plan: In short, the patient has evidence of venous insufficiency. I have discussed the pathophysiology with the patient. In addition I have provided informational material regarding venous disease to the patient. We have discussed conservative measures including compression, elevation, and exercise. I have also provided a handout regarding appropriate use of compression stockings and where to purchase good compression stockings as well. I have taken the liberty of ordering venous insufficiency testing with the patient. They will follow up with me after testing. The patient had an opportunity to ask questions regarding the treatment plan. All questions were answered. Imaging studies, laboratory studies and physical exam results were discussed and reviewed in detail. No major barriers to understanding were identified. The patient expressed understanding and agreement with the above treatment plan. The patient is aware they should contact our office by phone for worsening of the current condition or the appearance of new symptoms. Thank you for allowing me to participate in the vascular care of this patient. If you have any questions or concerns regarding the treatment for the above condition please do not hesitate to contact me. The office telephone contact is [phone]. This note is constructed using voice recognition software. While every effort has been made to ensure accuracy, medical art therapist errors may have been included. Thank you for allowing me to participate in the care of your patient. Yours sincerely, Bradly Gonzalez MD, FACS, R.P.V.I. Orders: Orders US venous insuf bilat 1 Week I83.11 - Varicose veins of right lower extremity with inflammation Coding Level of Care Code New Pt Level 4 (03723) Diagnoses Varicose veins of right lower extremity with inflammation I83.11
== END 2023-08-12 13:28 | disposition home or self-care (01) ==
PROVIDERS: PCP Student in an Organized Health Care Education/Training Program; Visit Provider Surgery Vascular Surgery
DX: I83.11 Varicose veins of right lower extremity with inflammation (principal)
CPT/HCPCS: 99203

== ENCOUNTER → 2023-08-12 13:13 | Outpatient (BNVA) | payer MEDICAID, SELFPAY | PROVIDERS: PCP Student in an Organized Health Care Education/Training Program; Visit Provider Surgery Vascular Surgery | DX: I83.11 Varicose veins of right lower extremity with inflammation (principal) | CPT/HCPCS: 99202 ==

== ENCOUNTER 2023-08-19 12:42 | Outpatient (AMB) | payer MEDICAID, SELFPAY ==
--- NOTE | 2023-08-19 12:43 | A.OFFVIS_ITS ---
Intake Intake Visit Reasons: 4w/MRI Intake Note: Patient presents today for a telehealth follow-up Meds- None Allergies to Antibiotic- No Known Allergies Blood Thinner- Eliquis Umbrella Tipper Machine Required: Yes Umbrella Tipper Machine Name: ESEQUIEL OLIVAEMILY Accompanied by: Self / Same As Patient Allergies phenylephrine [From CONTAC-D COLD (PE)] Allergy (Unknown, Verified 08/19/23 1 4:00) EDEMA Contac-D Allergy (Unknown, Uncoded 08/19/23 14:00) Unknown Medication List - Last Reconciled 08/19/23 by BELINDA Gan- apixaban (Eliquis) 5 mg PO BID atorvastatin 1 tab PO BEDTIME baclofen 20 mg PO TID butenafine 1% (Lotrimin Ultra) 1 appl topical BID cabozantinib 40 mg PO DAILY docusate sodium 1 cap PO BEDTIME PRN dulaglutide (Trulicity) 0.75 mg subcut QWEEK dulaglutide (Trulicity) mg subcut QWEEK famotidine 20 mg PO DAILY gabapentin 1 cap PO QPM lancets (TRUEplus Lancets) As directed levothyroxine (Synthroid) 75 mcg PO DAILY levothyroxine 25 mcg PO QAM loperamide (Imodium A-D) 2 mg PO Q4H PRN losartan 25 mg PO DAILY Magic Mouthwash Diphen/Lido/Antacid 1:1:1 10 mL PO QID metformin 500 mg PO BID multivitamin 1 tab PO QAM naloxone 4 mg/actuation intranasal omeprazole 40 mg PO DAILY ondansetron 8 mg PO Q8H oxycodone 5 mg PO Q6H PRN propranolol 10 mg PO BID sennosides (Senokot) 8.6 mg PO BID sertraline (Zoloft) 200 mg PO DAILY sucralfate 1 g PO TID PRN zolpidem 10 mg PO BEDTIME HPI HPI Comments History of Present Illness Details Krys is a Gabonese-speaking 58-year-old female patient of Dr. Naidu. She has a past medical history of lung cancer, clear cell renal carcinoma status post nephrectomy 01/25, depression, and anxiety. She is being follow-up on today via telehealth. In discussion with the patient today she reports having seeked emergency room care approximately 2 weeks ago for nausea, vomiting, and diarrhea. She reports to be doing and feeling much better. Recent MRI imaging results reviewed with the patient today right kidney surgically absent. No suspicious soft tissue within right nephric bed. Unremarkable left kidney without hydronephrosis or renal mass. Left renal vein is patent. She reports noting previous Port-A-Cath site to right chest has been healing well. She reports she continues to follow-up with wound care. When asked she denies having had any urinary issues or concerns. She denies urinary urgency, urinary frequency, incontinence, nocturia, hematuria, dysuria, foul smelling urine, changes to urinary stream, flank pain, fever, and or chills. She continues to follow-up with oncology for her chemotherapy. Discussed surveillance imaging chest CT as well as abdominal and pelvis imaging. Discussed surveillance imaging at years 5, 7 and 9 years with renal u/s surveillance monitoring as well. The renal mass was diagnosed incidentally, during evaluation for, hematuria ? 09/25 ? Prior treatment(s) included 01/[address] Hui. ? Staging of initial cancer 01/25 , T3a , with no positive lymph nodes, with vein involvement ? - Stage III. ? The diagnosis was renal cell carcinoma, Grade III PFSH Medical History Pulmonary nodules Right renal mass Anxiety Depression Clear cell carcinoma of right kidney Surgical History Hx of colonoscopy History of esophagogastroduodenoscopy (EGD) S/P skin biopsy Status post hysterectomy Family History Maternal Uncle Stomach cancer Maternal Aunt Stomach cancer Paternal Aunt Colon cancer Sister Liver cancer Sister Skin cancer Social History Household Members: None Housing: Apartment Are you a primary care transition mgr to a significant other at home: No Do you presently have visiting nurse or other home services: Yes Alcohol intake: former Patient Tobacco Use Status: Never used Tobacco service: No Current occupational status: unemployed Review of Systems Const Reports as per HPI Eyes Reports no additional complaints ENT Reports no additional complaints Card Reports no additional complaints Resp Reports as per HPI GI Reports no additional complaints Reports as per HPI Musc Reports no additional complaints Psych Reports as per HPI Physical Exam Const General: cooperative Resp Effort & Inspection: able to speak in complete sentences Psych Speech and movement: Clear speech present Attitude: cooperative Thought process: Normal thought process present Thought content: Normal thought content present Insight: Fair insight present (Psych) Judgement: Fair judgement present (Psych) Assessment & Plan Assessment & Plan (1) Clear cell carcinoma of right kidney: Comment: status post nephrectomy, at [facility] in January. 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 Marilyn grade 3. Stage IIIA, with renal vein extention. Stutent started on June 17. Code(s): C64.1 - Malignant neoplasm of right kidney, except renal pelvis (2) Renal vein thrombosis: Code(s): I82.3 - Embolism and thrombosis of renal vein Plan Recent renal/MRI imaging results reviewed with the patient today; as noted above. Continue to follow-up with oncology as planned. Continue follow-up with pulmonology as planned Continue to follow with wound care for dressing changes to previous right Port-A-Cath site. Patient currently denies any bothersome urinary issues or concerns. She is happy with her current voiding parameters. Will obtain renal ultrasound in 6 months. Follow-up in 6 months with imaging to be completed prior; or sooner with any issues, concerns, and or questions. Orders: Orders US renal BI 6 Months N20.0 - Calculus of kidney Patient Instructions: The patient had an opportunity to ask questions regarding the treatment plan. All questions were answered. Physical exam, labs, and imaging were discussed and reviewed in detail. As well as risks, benefits, and discussion of treatment choices. No major barriers to understanding were identified. The patient expressed understanding and agreement with the above treatment plan. The patient was made aware they should contact our office by phone for worsening of their current condition, the appearance of new symptoms, or with any questions or concerns. Compliance is encouraged with any medications and follow up testing that is ordered. It is a privilege to be allowed the opportunity to participate in? your urological care.? Again, if you have any questions or concerns If you have any questions or concerns please do not hesitate to contact me. The office is [phone]. This note is constructed using voice recognition software. While every effort has been made to ensure accuracy conference center coordinator errors may have been included. Yours sincerely, LIV Gan Telehealth Telehealth Location of provider rendering services: practice address Location of patient: address on file Patient Identification confirmed using: Name, : Yes Telehealth method: voice only Patient verbally consented to treatment: Yes Patient verbally consented to billing insurance company: Yes Patient informed of any privacy concerns related to visit: Yes Minutes spent on Phone/Video with Pt.: 20 Coding Level of Care Code Tele Est Pt Level 3 (66373) Diagnoses Clear cell carcinoma of right kidney C64.1 Renal vein thrombosis I82.3
== END 2023-08-19 14:12 | disposition home or self-care (01) ==
LOC: HO.HUSH 12:43
PROVIDERS: PCP Student in an Organized Health Care Education/Training Program; Visit Provider Nurse Practitioner Family
DX: C64.1 Malignant neoplasm of right kidney, except renal pelvis (principal); I82.3 Embolism and thrombosis of renal vein
CPT/HCPCS: 99213

== ENCOUNTER → 2023-08-19 12:42 | Outpatient (BNVA) | payer MEDICAID, SELFPAY | PROVIDERS: PCP Student in an Organized Health Care Education/Training Program; Visit Provider Nurse Practitioner Family ==

== ENCOUNTER 2023-09-03 12:48 | Outpatient (REF) | payer MEDICAID, SELFPAY ==
--- NOTE | ~2023-09-03 | US_ITS ---
EXAMINATION: US LOWER EXTREMITY VENOUS (REFLUX EXAM), BILATERAL CLINICAL INFORMATION: Chronic venous insufficiency with lower extremity varicose veins and inflammation COMPARISON: None. TECHNIQUE: Color flow triplex imaging and compression Doppler was performed to evaluate both the deep and the superficial systems bilaterally. To evaluate the superficial system, the examination was performed in the upright position. Color-flow Doppler ultrasound and compression ultrasound were utilized. In addition, maneuvers were utilized to demonstrate reflux. FINDINGS: 1. DEEP VENOUS ULTRASOUND OF THE RIGHT LOWER EXTREMITY: Common Femoral Vein: Compressible, normal respiratory variation and augmented flow. Femoral Vein: Compressible, normal color flow and augmentation. Popliteal Vein: Compressible, normal augmentation. Deep Reflux: There is no evidence of reflux in the deep system in either the common femoral vein, superficial femoral or the popliteal vein. There is no evidence of a Patino's cyst. 2. SUPERFICIAL ULTRASOUND WITH DOPPLER OF RIGHT LOWER EXTREMITY: GREAT SAPHENOUS VEIN: Saphenofemoral Junction: 0.7 cm; Reflux: 0 ms Proximal Thigh: 0.5 cm; Reflux: 0 ms Mid Thigh: 0.5 cm; Reflux: 2400 ms Distal Thigh: 0.2 cm; Reflux: 0 ms At Knee: 0.2 cm; Reflux: 0 ms Proximal Calf: 0.1 cm; Reflux: 0 ms Mid Calf: 0.2 cm; Reflux: 2492 ms Distal Calf: 0.2 cm; Reflux: 0 ms DUPLICATED MEDIAL GREAT SAPHENOUS VEIN: Diameter: None imaged Reflux: NA DUPLICATED LATERAL GREAT SAPHENOUS VEIN: Diameter: 0.3 cm Reflux: None SMALL SAPHENOUS VEIN: Saphenopopliteal Junction: 0.1 cm; Reflux: 0 ms Proximal: 0.3 cm; Reflux: 0 ms Distal: 0.2 cm; Reflux: 0 ms VEIN OF GIACOMINI: Size: NA Reflux: NA PERFORATORS: Location: Posterior calf Size: 0.4 cm Reflux: None VARICOSITIES: Location: Proximal, mid and distal thigh off the great saphenous vein extending into the knee and calf Size: 0.3 to 0.6 cm Reflux: Greater than 2500 ms within the thigh, knee and calf 3. DEEP VENOUS ULTRASOUND OF THE LEFT LOWER EXTREMITY: Common Femoral Vein: Compressible, normal respiratory variation and augmented flow. Femoral Vein: Compressible, normal color flow and augmentation. Popliteal Vein: Compressible, normal augmentation. Deep Reflux: There is no evidence of reflux in the deep system in either the common femoral vein, superficial femoral or the popliteal vein. There is no evidence of a Patino's cyst. 4. SUPERFICIAL ULTRASOUND WITH DOPPLER OF LEFT LOWER EXTREMITY: GREAT SAPHENOUS VEIN: Saphenofemoral Junction: 0.6 cm; Reflux: 0 ms Proximal Thigh: 0.5 cm; Reflux: 0 ms Mid Thigh: 0.2 cm; Reflux: 0 ms Distal Thigh: 0.2 cm; Reflux: 680 ms At Knee: 0.3 cm; Reflux: 0 ms Proximal Calf: 0.1 cm; Reflux: 0 ms Mid Calf: 0.1 cm; Reflux: 0 ms Distal Calf: 0.2 cm; Reflux: 0 ms DUPLICATED MEDIAL GREAT SAPHENOUS VEIN: Diameter: None imaged Reflux: NA DUPLICATED LATERAL GREAT SAPHENOUS VEIN: Diameter: 0.3 cm Reflux: None SMALL SAPHENOUS VEIN: Saphenopopliteal Junction: 0.1 cm; Reflux: 0 ms Proximal: 0.1 cm; Reflux: 0 ms Distal: 0.1 cm; Reflux: 0 ms VEIN OF GIACOMINI: Size: NA Reflux: NA PERFORATORS: Location: None significant Size: NA Reflux: NA VARICOSITIES: Location: None significant Size: NA Reflux: NA US/US venous insuf bilat IMPRESSION: Right: Severe reflux in segmental areas of the right great saphenous vein as described above. Multiple large branching varicosities off the great saphenous vein throughout the thigh and extending into the calf as described above Left: Focal segmental area of mild reflux in the great saphenous vein in the distal thigh. Otherwise no significant venous insufficiency in the great saphenous vein or small saphenous vein.
== END 2023-09-03 12:49 | disposition home or self-care (01) ==
LOC: HO.US 12:48
PROVIDERS: PCP Student in an Organized Health Care Education/Training Program; Visit Provider Surgery Vascular Surgery
DX: I83.11 Varicose veins of right lower extremity with inflammation (principal)
CPT/HCPCS: 93970

== ENCOUNTER 2023-10-07 15:03 | Outpatient (REF) | payer MEDICAID, SELFPAY ==
--- NOTE | ~2023-10-07 | CT_ITS ---
EXAMINATION: CT CHEST WITH CONTRAST CLINICAL INFORMATION: Renal cell carcinoma. Follow-up lung nodules. COMPARISON: CT chest 05/22/2023. CT chest 12/05/2022. TECHNIQUE: Multidetector volumetric CT imaging of the chest was obtained after the administration of 65 mL of Omnipaque 350 intravenous contrast without immediate adverse reactions. Axial MIP volume rendering provided. Sagittal and coronal reformatted images were obtained. This CT examination was performed using dose optimization techniques as appropriate, variously including the following: *Automated exposure control *Adjustment of mA and/or kV according to patient size (this includes techniques or standardized protocols for targeted exams where dose is matched to indication/reason for exam; i.e. extremities or head) *Use of iterative reconstruction technique DLP: 200 mGycm FINDINGS: LUNGS: Minimal scarring seen at the site of the 7 mm nodule in the left lower lobe series 5 image 194. 3 mm nodule left lower lobe series 5 image 304 at site of prior 8 mm nodule. 2 mm nodule right lower lobe series 5 image 322 at site of prior 4 mm nodule. MEDIASTINUM: Left IJ chest wall port with catheter tip in the right atrium. No pericardial effusion. No mediastinal adenopathy. No thoracic aortic aneurysm. PLEURA: There is no pleural effusion. No pleural mass or thickening. AXILLA: No adenopathy. UPPER ABDOMEN: Hepatic steatosis. Right nephrectomy. No mass in the visible nephrectomy bed. OSSEOUS STRUCTURES: No suspicious osseous lesions. CT/CT chest w IV con IMPRESSION: Stable tiny pulmonary nodules as measured above compared to most recent chest CT of 05/22/2023.. Overall significant improvement in pulmonary metastatic disease compared to the study from 12/05/2022. Continued surveillance is recommended. Hepatic steatosis. Fleischner guidelines were followed.
[2023-10-07] MEDS: iohexoL 350 MG/ML 100 ML INFUS..BTL 65 ML IV (16:25)
== END 2023-10-07 15:04 | disposition home or self-care (01) ==
LOC: HO.CT 15:03
PROVIDERS: PCP Student in an Organized Health Care Education/Training Program; Visit Provider Internal Medicine Medical Oncology
DX: R91.8 Other nonspecific abnormal finding of lung field (principal)
CPT/HCPCS: 71260; Q9967

== ENCOUNTER 2023-12-04 14:08 | Outpatient (AMB) | payer MEDICAID, SELFPAY ==
--- NOTE | 2023-12-04 14:23 | MHC.OFFVIS ---
Intake Visit Reasons: Follow Up 09/02 [facility] Intake Note: Patient presents for follow up 09/02 [facility]. Patient states she has bilateral leg pain but the right leg hurts more . She does not have any swelling but does have occasional cramping. She has rope like varicose veins on her left leg that she would like to treat. Accompanied by: Self / Same As Patient Allergies phenylephrine [From CONTAC-D COLD (PE)] Allergy (Unknown, Verified 12/04/23 14:29) EDEMA Contac-D Allergy (Unknown, Uncoded 08/19/23 14:00) Unknown HPI HPI Follow Up 09/02 US: Details: Very pleasant 58-year-old female presents for follow-up with venous insufficiency testing. She reports that she has this large varicosity on the right medial thigh and calf which has been a source of pain and discomfort for her. It has been affecting her daily life including walking. She reports that compression stockings have provided minimal relief. She now presents for follow-up with venous insufficiency testing. [facility] Medical History Pulmonary nodules Right renal mass Anxiety Depression Clear cell carcinoma of right kidney Surgical History Hx of colonoscopy History of esophagogastroduodenoscopy (EGD) S/P skin biopsy Status post hysterectomy Family History Maternal Uncle Stomach cancer Maternal Aunt Stomach cancer Paternal Aunt Colon cancer Sister Liver cancer Sister Skin cancer Social History Household Members: None Housing: Apartment Are you a primary acute care physical therapist to a significant other at home: No Do you presently have visiting nurse or other home services: Yes Alcohol intake: former Patient Tobacco Use Status: Never used Tobacco service: No Current occupational status: unemployed Review of Systems Const Reports as per HPI ENT Reports no additional complaints Card Denies chest pain, Denies chest pain at rest and Denies chest pain with activity Resp Denies chest congestion and Denies cough GI Reports no additional complaints Musc Details: pain over varicosities, aching of lower extremities, swelling, cramping, heaviness and tiredness, itching Denies abnormal gait Skin/Breast Reports pruritus and Denies wounds Neuro Reports no additional complaints and Denies abnormal gait Psych Denies no additional complaints Physical Exam Const General: cooperative, healthy appearing and comfortable Orientation/consciousness: oriented to person, oriented to place and oriented to time Neck Carotids: no bruits Chest Chest palpation & inspection: normal inspection of the chest and normal palpation of entire chest wall Resp Effort & Inspection: normal respiratory effort and able to speak in complete sentences Cardio Rate: regular rate Heart sounds: S1 normal heart sound present and S2 normal heart sound present Peripheral pulses: Peripheral pulses 2+ throughout GI Inspection: Yes normal to inspection Skin Other: +2 edema, large rope-like varicosities greater than 4 mm right thigh and calf CEAP Classification C4 - skin color changes Ep - Etiology Primary As - superficial veins P - reflux General skin exam: dry skin Neuro General: oriented to person, oriented to place and oriented to time Extrem Right lower extremity: full ROM, normal capillary refill and edema Left lower extremity: full ROM, normal capillary refill and edema Psych Mental Status: mental status grossly normal Results Reviewed Results Reviewed: Brief summary of venous insufficiency testing is as follows: right great saphenous vein: Positive right small saphenous vein: negative right accessory vein: none present left great saphenous vein: Focally positive at knee left small saphenous vein: negative left accessory vein: none present Please note there is no evidence of any venous aneurysms or significant tortuosity Assessment & Plan Assessment & Plan (1) Varicose veins of right lower extremity with inflammation: Code(s): I83.11 - Varicose veins of right lower extremity with inflammation Category: Medical Plan: This patient has varicose veins with inflammation. They continue to be a source of discomfort for the patient. The patient has tried conservative treatment with compression, leg elevation and exercise program for over 3 months time. They have been compliant with all treatment. This has provided minimal relief for the patient. I do not anticipate this course of treatment will alter the underlying etiology. The patient has been scheduled for lower extremity venous treatment inclusive of --- right great saphenous vein Cyanoacralate ablation. Risks, benefits, and complications of this procedure has been discussed in detail with the patient including but not limited to bleeding, infection, and the development of a DVT. The patient has demonstrated a clear understanding and has consented. We will schedule the patient as soon as possible. Thank you for allowing us to participate in this patient's care. If there are any questions or concerns please do not hesitate to contact us. Coding Level of Care Code Est Pt Level 4 (09005) Diagnoses Varicose veins of right lower extremity with inflammation I83.11
== END 2023-12-04 15:08 | disposition home or self-care (01) ==
PROVIDERS: PCP Student in an Organized Health Care Education/Training Program; Referring Provider Student in an Organized Health Care Education/Training Program; Visit Provider Surgery Vascular Surgery
DX: I83.11 Varicose veins of right lower extremity with inflammation (principal)
CPT/HCPCS: 99214

== ENCOUNTER → 2023-12-04 14:08 | Outpatient (BNVA) | payer MEDICAID, SELFPAY | PROVIDERS: PCP Student in an Organized Health Care Education/Training Program; Visit Provider Surgery Vascular Surgery | DX: I83.11 Varicose veins of right lower extremity with inflammation (principal) | CPT/HCPCS: 99212 ==

== ENCOUNTER 2023-12-05 12:28 | Outpatient (REF) | payer MEDICAID, SELFPAY ==
--- NOTE | ~2023-12-05 | MM_ITS ---
EXAMINATION: MM SCREENING DIGITAL BREAST TOMOSYNTHESIS, BILATERAL CLINICAL INFORMATION: Screening. Asymptomatic. COMPARISON: Mammography: This study is compared with prior exams dating back to 2019. TECHNIQUE: Digital breast tomosynthesis is performed in both the craniocaudal and mediolateral oblique views along with computer-aided detection (CAD). Synthesized 2D images are generated from the tomosynthesis. FINDINGS: There are scattered areas of fibroglandular density (ACR BI-RADS breast composition Category b). There are no significant masses, abnormal calcifications, or other abnormalities. Scattered, benign calcifications are present in each breast. MM/MM tomosynthesis screening BI IMPRESSION: No mammographic evidence of malignancy. ASSESSMENT: BI-RADS BI-RADS 2 - Benign Findings RECOMMENDATION: Routine annual mammography screening. 1 year F/U This examination should not preclude the clinical evaluation of a suspicious palpable abnormality. This patient's information was entered into a reminder system with a target due date for their next mammogram.
== END 2023-12-05 12:29 | disposition home or self-care (01) ==
LOC: HO.MAMMO 12:28
PROVIDERS: PCP Student in an Organized Health Care Education/Training Program; Visit Provider Student in an Organized Health Care Education/Training Program
DX: Z12.31 Encounter for screening mammogram for malignant neoplasm of breast (principal)
CPT/HCPCS: 77063; 77067

== ENCOUNTER → 2023-12-05 13:30 | Outpatient (BNV) | payer MEDICAID, SELFPAY | PROVIDERS: PCP Student in an Organized Health Care Education/Training Program; Visit Provider Radiology Diagnostic Radiology | DX: Z12.31 Encounter for screening mammogram for malignant neoplasm of breast (principal) | CPT/HCPCS: 77063; 77067 ==

== ENCOUNTER 2023-12-09 09:31 | Outpatient (REF) | payer MEDICAID, SELFPAY ==
[2023-12-09 10:56] LABS: MANUAL DIFF FLAG NO
[2023-12-09 11:19] LABS: Basophils Percent Auto 0.3 % (0-2); Eosinophils Percent Auto 1.2 % (0-4); Hematocrit 36.7 % (37.0-47.0); Hemoglobin 12.5 g/dl (12.0-16.0); Lymphocytes Absolute Auto 1.1 X10*3/uL (1.2-4.9); Lymphocytes Percent Auto 34.4 % (20-40); Mean Corpuscular HGB Conc 34.1 g/dl (31.0-35.0); Mean Corpuscular Hemoglobin 33.3 pg (27.0-33.0); Mean Corpuscular Volume 97.9 fL (80.0-98.0); Mean Platelet Volume 10.8 fL (9.4-12.3); Monocytes Absolute Auto 0.3 X10*3/uL (0.1-1.2); Neutrophils Absolute Auto 1.8 x10*3/uL (2.0-8.3); Neutrophils Percent Auto 56.1 % (45-73); Platelet Count 142 X10*3/uL (160-400); Red Blood Count 3.75 X10*6/uL (4.20-5.50); Red Cell Distribution Width 12.7 % (11.0-16.0); White Blood Count 3.3 X10*3/uL (4.8-10.8)
[2023-12-09 11:53] LABS: Anion Gap 9 (12-20); Blood Urea Nitrogen 13 mg/dL (9-16); Calcium 9.5 mg/dL (8.4-10.2); Carbon Dioxide 31 mmol/L (22-29); Chloride 106 mmol/L (96-108); Estimated Glomerular Filt Rate > 60; Glucose Random 99 mg/dL (60-115); Potassium 4.4 mmol/L (3.3-5.1); Sodium 142 mmol/L (135-145)
[2023-12-09 12:01] LABS: Erythrocyte Sedimentation Rate 19 MM/HR (0-20)
== END 2023-12-09 09:32 | disposition home or self-care (01) ==
LOC: HO.HHCL 09:31
PROVIDERS: Visit Provider Hospitalist
DX: R91.8 Other nonspecific abnormal finding of lung field (principal)
CPT/HCPCS: 36415; 80048; 85025; 85652

== ENCOUNTER 2023-12-19 08:48 | Outpatient (REF) | payer MEDICAID, SELFPAY ==
[2023-12-19 11:15] LABS: MANUAL DIFF FLAG NO
[2023-12-19 11:22] LABS: Basophils Percent Auto 0.3 % (0-2); Eosinophils Absolute Auto 0.1 X10*3/uL (0.0-0.4); Eosinophils Percent Auto 1.5 % (0-4); Hematocrit 36.5 % (37.0-47.0); Hemoglobin 12.5 g/dl (12.0-16.0); Lymphocytes Absolute Auto 1.3 X10*3/uL (1.2-4.9); Lymphocytes Percent Auto 39.6 % (20-40); Mean Corpuscular HGB Conc 34.2 g/dl (31.0-35.0); Mean Corpuscular Hemoglobin 33.8 pg (27.0-33.0); Mean Corpuscular Volume 98.6 fL (80.0-98.0); Mean Platelet Volume 11.1 fL (9.4-12.3); Monocytes Absolute Auto 0.3 X10*3/uL (0.1-1.2); Monocytes Percent Auto 10.3 % (2-11); Neutrophils Absolute Auto 1.6 x10*3/uL (2.0-8.3); Neutrophils Percent Auto 48.3 % (45-73); Platelet Count 144 X10*3/uL (160-400); Red Cell Distribution Width 12.9 % (11.0-16.0); White Blood Count 3.3 X10*3/uL (4.8-10.8)
[2023-12-19 11:56] LABS: Alanine Aminotransferase 18 U/L (0-31); Albumin Level 3.7 g/dL (3.5-5.0); Alkaline Phosphatase 63 U/L (39-117); Anion Gap 8 (12-20); Aspartate Amino Transferase 21 U/L (5-31); Bilirubin Total 0.6 mg/dL (0.0-1.0); Blood Urea Nitrogen 13 mg/dL (9-16); Calcium 9.2 mg/dL (8.4-10.2); Carbon Dioxide 31 mmol/L (22-29); Chloride 107 mmol/L (96-108); Cholesterol 135 mg/dL (<200); Estimated Glomerular Filt Rate > 60; Glucose Random 87 mg/dL (60-115); HDL Cholesterol 30 mg/dL (>40); LDL Cholesterol Calculated 92 mg/dL (<100); Potassium 4.3 mmol/L (3.3-5.1); Sodium 142 mmol/L (135-145); Total Protein 6.3 g/dL (6.5-8.0); Triglycerides 68 mg/dL (<150)
[2023-12-19 12:01] LABS: Thyroid Stimulating Hormone 7.04 uIU/mL (0.32-4.0)
[2023-12-19 12:06] LABS: Estimated Average Glucose 111 mg/dL; Hemoglobin A1c % 5.5 % (<6.0)
[2023-12-19 12:12] LABS: Folate 11.3 ng/mL (> or = 4.0); Vitamin B12 215 pg/mL (200-900)
== END 2023-12-19 08:49 | disposition home or self-care (01) ==
LOC: HO.HHCL 08:48
PROVIDERS: Internal Medicine Medical Oncology; Visit Provider Student in an Organized Health Care Education/Training Program
DX: C64.1 Malignant neoplasm of right kidney, except renal pelvis (principal); E11.69 Type 2 diabetes mellitus with other specified complication
CPT/HCPCS: 36415; 80053; 80061; 82607; 82746; 83036; 84443; 85025

== ENCOUNTER 2023-12-25 10:54 | Outpatient (AMB) | payer MEDICAID, SELFPAY ==
--- NOTE | 2023-12-25 10:56 | A.OFFVIS_ITS ---
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 Discussed that her cancer therapy has affected her appetite and activity level. Currently not sexually active. Denies any vaginal dryness or irritation. Has external irritation due to frequent stooling uses a [id number] treatment therapy to help with the skin healing. History of hysterectomy due to fibroids. Last mammogram; 2023. Colonoscopy is UTD. Denies any family history of breast or ovarian. FH colon cancer. [facility] Medical History Pulmonary nodules Right renal mass Anxiety Depression Clear cell carcinoma of right kidney Surgical History Hx of colonoscopy History of esophagogastroduodenoscopy (EGD) S/P skin biopsy Status post hysterectomy Family History Maternal Uncle Stomach cancer Maternal Aunt Stomach cancer Paternal Aunt Colon cancer Sister Liver cancer Sister Skin cancer Social History Household Members: None Housing: Apartment Are you a primary assurance services manager health care to a significant other at home: No Do you presently have visiting nurse or other home services: Yes Alcohol intake: former Patient Tobacco Use Status: Never used Tobacco service: No Current occupational status: unemployed Female Reproductive History Menstrual Menopause type: surgical Total pregnancies: 4 Full term: 4 Number of Living Children: 4 Date of Mammogram: 12/05/23 (Birad 2) Review of Systems Const All systems reviewed & are unremarkable except as noted in HPI and below Reports as per HPI Eyes Reports no additional complaints ENT Reports no additional complaints Card Reports no additional complaints Resp Reports no additional complaints GI Reports as per HPI and Reports no additional complaints Reports as per HPI Musc Reports no additional complaints Skin/Breast Reports as per HPI Neuro Reports no additional complaints Psych Reports no additional complaints Endo Reports no additional complaints Lyle/Lymph Reports no additional complaints Aller/Immun Reports no additional complaints Physical Exam Vital Signs: Last Vital Signs BP 110/70 12/25/23 10:57 BMI result Body Mass Index 26.3 Const General: cooperative, healthy appearing, no acute distress, well developed and alert Orientation/consciousness: patient oriented x3 HEENT Head: Yes normal to inspection Eyes General: appearance normal, both eyes and all related structures Neck Neck: Yes normal visual inspection Thyroid: Thyroid normal Chest Other: Port upper left Chest palpation & inspection: normal inspection of the chest and other (no puckering, dimpling, peau de orange, retraction, discharge, masses) Breast/axilla inspection: normal inspection of the breasts Breast/axilla palpation: normal palpation of the breasts Resp Effort & Inspection: normal respiratory effort GI Inspection: Yes normal to inspection Palpation (GI): Soft to palpation Rectal Exam - Female: deferred General: Yes bladder normal to palpation External Female Exam: normal external appearance and normal appearance of the urethra Speculum Exam - Vagina: normal appearance of the vagina, normal palpation, nor mal vaginal discharge and vagina atrophic Speculum Exam - Cervix: normal appearance of the cervix and Cervix absent (Atrophic, vaginal cuff no lesions or nodules) Bimanual exam- vagina & uterus: normal bimanual exam, normal palpation, bladder normal to palpation and uterus absent Bimanual Exam- Adnexa, other: no masses Skin General skin exam: no rashes or lesions noted Rashes: no rashes Neuro General: patient oriented x3 Cognition (Neuro): normal cognition Extrem General: Yes normal to inspection Psych Attitude: cooperative Thought process: Normal thought process present Assessment & Plan Assessment & Plan (1) Encounter for well woman exam with routine gynecological exam: Code(s): Z01.419 - Encounter for gynecological examination (general) (routine) without abnormal findings Category: Medical Plan Discussed: Current recommendations for pap smears per ASCCP guidelines. Breast awareness, periodic self breast exams and yearly mammogram. Skin care. Maintain a healthy lifestyle as best as possible. Patient verbalizes understanding and agrees to the plan of care. She was given opportunity to ask questions and all questions were answered to the best of my ability. RTO in 2 year for annual process helper exam. This note is constructed using voice recognition software. While every effort has been made to ensure accuracy, screen printer helper errors may have been included. Coding Level of Care Code Est Pt Prev Care 40-64y(34542) Diagnoses Encounter for well woman exam with routine gynecological exam Z01.419
[2023-12-25 10:57] VITALS: BP 110/70; BMI 26.3
== END 2023-12-25 11:31 | disposition home or self-care (01) ==
PROVIDERS: PCP Registered Nurse; Visit Provider Advanced Practice Midwife
DX: Z01.419 Encounter for gynecological examination (general) (routine) without abnormal findings (principal)
CPT/HCPCS: 99396

== ENCOUNTER → 2023-12-25 10:54 | Outpatient (BNVA) | payer MEDICAID, SELFPAY | PROVIDERS: PCP Registered Nurse; Visit Provider Advanced Practice Midwife | DX: Z01.419 Encounter for gynecological examination (general) (routine) without abnormal findings (principal) | CPT/HCPCS: 99396 ==

== ENCOUNTER 2024-01-30 08:35 | Outpatient (AMB) | payer MEDICAID, SELFPAY ==
--- NOTE | 2024-01-30 08:35 | A.OFFVIS_ITS ---
Intake Visit Reasons: Right Venaseal Accompanied by: Self / Same As Patient Allergies phenylephrine [From CONTAC-D COLD (PE)] Allergy (Unknown, Verified 01/30/24 08:36) EDEMA Contac-D Allergy (Unknown, Uncoded 08/19/23 14:00) Unknown [facility] Medical History Pulmonary nodules Right renal mass Anxiety Depression Clear cell carcinoma of right kidney Surgical History Hx of colonoscopy History of esophagogastroduodenoscopy (EGD) S/P skin biopsy Status post hysterectomy Family History Maternal Uncle Stomach cancer Maternal Aunt Stomach cancer Paternal Aunt Colon cancer Sister Liver cancer Sister Skin cancer Social History Household Members: None Housing: Apartment Are you a primary ambulatory care nurse to a significant other at home: No Do you presently have visiting nurse or other home services: Yes Alcohol intake: former Patient Tobacco Use Status: Never used Tobacco service: No Current occupational status: unemployed Office Procedures Vascular Office Procedure Details Details: Diagnosis: Right Leg varicose veins with inflammation Procedure: Endovenous Ablation of the right Great Saphenous Vein with VenaSeal Closure System Anesthesia: Local infiltration 5 cc, Estimated Blood Loss: min Specimen: none Duplex ultrasound was used to map out the insufficient saphenous vein, and access was determined and marked on the overlying skin. The depth and diameter of the vein(s) to be treated was documented. The patient was placed supine on the procedure table and the leg was prepped and draped using sterile technique. Ultasound guidance was again used to localize the access site. 1% lidocaine was injected as a local anesthetic in the subcutaneous tissues at the target location in the GSV in the lower leg. Using ultrasound guidance, access was gained at this location with the 19 gauge thin walled access needle and followed by introduction of a short guidewire, location confirmed with ultrasound. A small, 3 mm incision was made at the access site to allow for introduction and placement of the 7 Fr x7cm introducer/dilator. The dilator and guidewire were removed. The 0.035 guidewire from the VenaSeal kit was then introduced and positioned at the saphenofemoral junction using ultrasound guidance. The 80 cm 7 Fr introducer sheath/dilator was positioned 5cm from the saphenofemoral junction. The guidewire and dilator were removed, and the remaining sheath was flushed with sterile saline, with the syringe remaining in place prior to the next steps. The cyanoacrylate adhesive was precisely primed into the 5 F delivery catheter and this catheter/syringe combination was attached within the dispenser gun. This assembly was introduced through the 7F sheath and positioned 5 cm caudal of the saphenofemoral junction under ultrasound guidance. The steps from the IFU were followed for dispensing amounts, locations and compression times, 2 aliquots proximally with 3 minutes of compression, and 1 aliquot every 3 cm distally with 30 sec of compression along the course of the vessel. Following the last injection and compression sequence, the catheter and introducer sheath were pulled out from the access site. Hemostasis was achieved with manual compression and an adhesive bandage was applied to the incision. Ultrasound confirmed complete coaptation and closure of the treated segments of the GSV, and the absence of any DVT at the saphenofemoral junction. Treatment time was approximately 5 minutes and the vein length treated was 27 cm. The drapes were removed and the patient cleaned and prepared for discharge. Post op ultrasound check is scheduled for 48-72 hours and the patient was given written post-op instructions. 79408 - Endoven Ther Chem Adhes 1st All charges added?: Procedure code (CPT) selection complete Assessment & Plan Assessment & Plan (1) Varicose veins of right lower extremity with inflammation: Comment: 01/30/2024 - right great saphenous vein Cyanoacralate ablation Code(s): I83.11 - Varicose veins of right lower extremity with inflammation Category: Medical Plan: See op note Coding Level of Care Code Procedure Only Diagnoses Varicose veins of right lower extremity with inflammation I83.11 CPT Codes Details - Vascular 3: 15356 - Endoven Ther Chem Adhes 1st ([id number])
== END 2024-01-30 09:50 | disposition home or self-care (01) ==
PROVIDERS: PCP Student in an Organized Health Care Education/Training Program; Visit Provider Surgery Vascular Surgery
DX: I83.11 Varicose veins of right lower extremity with inflammation (principal)
CPT/HCPCS: 36482

== ENCOUNTER → 2024-01-30 08:35 | Outpatient (BNVA) | payer MEDICAID, SELFPAY | PROVIDERS: PCP Student in an Organized Health Care Education/Training Program; Visit Provider Surgery Vascular Surgery | DX: I83.11 Varicose veins of right lower extremity with inflammation (principal) | CPT/HCPCS: 36482 ==

== ENCOUNTER 2024-02-02 14:35 | Outpatient (REF) | payer MEDICAID, SELFPAY ==
--- NOTE | ~2024-02-02 | US_ITS ---
EXAMINATION: TRIPLEX SCANNING OF RIGHT LOWER EXTREMITY; SUPERFICIAL ULTRASOUND WITH DOPPLER OF RIGHT LOWER EXTREMITY CLINICAL INFORMATION: Status post Venaseal of the right great saphenous vein Ambulatory phlebectomy performed: No Originally performed on 01/30/2024. COMPARISON: 09/03/2023. TECHNIQUE: Color flow triplex imaging and compression Doppler were performed as well as superficial ultrasound with Doppler. FINDINGS: RIGHT LOWER EXTREMITY DEEP VENOUS SYSTEM: Respiratory variation, normal compression and augmented flow are noted throughout the lower extremity. The visualized common femoral vein, femoral vein, profunda femoral vein, popliteal vein and the calf veins show no evidence of deep venous thrombosis. There is no evidence of Patino's cyst. SUPERFICIAL VENOUS SYSTEM: The great saphenous vein is occluded from the access site to approximately 6 to 7 cm before the saphenofemoral junction. There is no extension of thrombus into the deep system. US/US venous duplex LE RT IMPRESSION: 1. No evidence of DVT. 2. Excellent appearance status post ablation of the right great saphenous vein. Electronically signed by: Barrie Salomon MD 02/02/2024 03:32 PM EDT
== END 2024-02-02 14:36 | disposition home or self-care (01) ==
LOC: HO.US 14:35
PROVIDERS: PCP Student in an Organized Health Care Education/Training Program; Visit Provider Surgery Vascular Surgery
DX: M79.604 Pain in right leg (principal)
CPT/HCPCS: 93971

== ENCOUNTER 2024-02-10 07:40 | Outpatient (REF) | payer MEDICAID, SELFPAY ==
--- NOTE | ~2024-02-10 | US_ITS ---
EXAMINATION: US RETROPERITONEAL COMPLETE (RENAL) CLINICAL INFORMATION: Calculus of kidney, right kidney removed. COMPARISON: None available. TECHNIQUE: Real-time imaging of the kidneys and bladder. Limited visualization due to bowel gas. FINDINGS: RIGHT KIDNEY: Right kidney surgically absent. LEFT KIDNEY: 11.1 x 5.3 x 5.9 cm (SAG x AP x TRV). No hydronephrosis. A 3 mm mid pole calculus. Renal cortical thickness is normal. Limited visualization. US/US renal BI IMPRESSION: 1. Right kidney surgically absent. 2. Left renal 3 mm nonobstructive calculus. No hydronephrosis. Electronically signed by: Umm Castelan MD 02/11/2024 04:42 PM EDT
== END 2024-02-10 07:41 | disposition home or self-care (01) ==
LOC: HO.US 07:40
PROVIDERS: PCP Registered Nurse; Visit Provider Nurse Practitioner Family
DX: N20.0 Calculus of kidney (principal)
CPT/HCPCS: 76775

== ENCOUNTER 2024-02-19 13:23 | Outpatient (AMB) | payer MEDICAID, SELFPAY ==
--- NOTE | 2024-02-19 13:31 | A.OFFVIS_ITS ---
Intake Visit Reasons: 6 month follow up/ imaging(set) Intake Note: Patient presents today for follow up on : clear cell carcinoma and ultrasound results Imaging Completed: 02/10/24 Meds- None Allergies to Antibiotic- No Known Allergies Blood Thinner- Eliquis Gate Clerk Required: Yes Gate Clerk Services: Gate Clerk Present Gate Clerk Name: [id number] Accompanied by: Self / Same As Patient Allergies phenylephrine [From CONTAC-D COLD (PE)] Allergy (Unknown, Verified 02/19/24 14:09) EDEMA Contac-D Allergy (Unknown, Uncoded 02/19/24 14:09) Unknown Medication List - Last Reconciled 02/19/24 by BELINDA Gan- apixaban (Eliquis) 5 mg PO BID atorvastatin 1 tab PO BEDTIME baclofen 20 mg PO TID butenafine 1% (Lotrimin Ultra) 1 appl topical BID cabozantinib 40 mg PO DAILY cholestyramine (with sugar) 4 gram (Questran) 4 grams PO TID diphenoxylate-atropine 2.5-0.025 mg (Lomotil) 1 tab PO QID docusate sodium 1 cap PO BEDTIME PRN dulaglutide (Trulicity) 0.75 mg subcut QWEEK dulaglutide (Trulicity) mg subcut QWEEK famotidine 20 mg PO DAILY gabapentin 1 cap PO QPM lancets (TRUEplus Lancets) As directed levothyroxine 100 mcg PO DAILY levothyroxine 100 mcg PO DAILY levothyroxine (Synthroid) 75 mcg PO DAILY levothyroxine 25 mcg PO QAM lidocaine 5% 1 appl topical QWEEK loperamide (Imodium A-D) 2 mg PO Q4H PRN losartan 25 mg PO DAILY Magic Mouthwash Diphen/Lido/Antacid 1:1:1 10 mL PO QID Magic Mouthwash Diphen/Lido/Antacid 1:1:1 10 mL PO QID metformin 500 mg PO BID multivitamin 1 tab PO QAM naloxone 4 mg/actuation intranasal omeprazole 40 mg PO DAILY ondansetron 8 mg PO Q8H oxycodone 5 mg PO Q6H PRN prochlorperazine maleate (Compazine) 10 mg PO Q6H PRN propranolol 10 mg PO BID sennosides (Senokot) 8.6 mg PO BID sertraline (Zoloft) 200 mg PO DAILY sucralfate 1 g PO TID PRN zolpidem 10 mg PO BEDTIME HPI Comments Details: Krys is a Dutch-speaking 58-year-old female patient of Dr. Naidu. She has a past medical history of lung cancer, clear cell renal carcinoma status post nephrectomy 01/25, depression, and anxiety. She presents to the office today for follow-up of her renal cell carcinoma. Recent renal imaging results reviewed with the patient today. Renal ultrasound 03/02 right kidney surgically absent. Left renal 3mm nonobstructive calculus. No hydronephrosis. When asked she currently denies any bothersome urinary issues or concerns She reports be happy with current voiding parameters. She discusses following up with Oncology as well as pulmonology and undergoing treatment for lung cancer She discusses her anxiety regarding her health and ongoing cancer issues She reports feeling anxious as cancer metastasized to her lungs. This was discussed at length. All questions were answered to the best of my ability. Previous workup has also included a MRI 08/30 noting right kidney surgically absent. No suspicious soft tissue within right nephric bed. Unremarkable left kidney without hydronephrosis or renal mass. Left renal vein is patent. She denies urinary urgency, urinary frequency, incontinence, nocturia, hematuria, dysuria, foul smelling urine, changes to urinary stream, flank pain, fever, and or chills. Discussed surveillance imaging chest CT as well as abdominal and pelvis imaging. Discussed surveillance imaging at years 5, 7 and 9 years with renal u/s surveillance monitoring as well. In office urinalysis results reviewed with the patient today. She otherwise offers no other issues or concerns at this time. The renal mass was diagnosed incidentally, during evaluation for, hematuria ? 09/25 ? Prior treatment(s) included 01/[address] Hui. ? Staging of initial cancer 01/25 , T3a , with no positive lymph nodes, with vein involvement ? - Stage III. ? The diagnosis was renal cell carcinoma, Grade III PFSH Medical History Pulmonary nodules Right renal mass Anxiety Depression Clear cell carcinoma of right kidney Surgical History Hx of colonoscopy History of esophagogastroduodenoscopy (EGD) S/P skin biopsy Status post hysterectomy Family History Maternal Uncle Stomach cancer Maternal Aunt Stomach cancer Paternal Aunt Colon cancer Sister Liver cancer Sister Skin cancer Social History Household Members: None Housing: Apartment Are you a primary chiropractic care to a significant other at home: No Do you presently have visiting nurse or other home services: Yes Alcohol intake: former Patient Tobacco Use Status: Never used Tobacco service: No Current occupational status: unemployed Review of Systems Const Reports as per HPI Eyes Reports no additional complaints ENT Reports no additional complaints Card Reports no additional complaints Resp Reports as per HPI GI Reports no additional complaints Reports as per HPI Musc Reports no additional complaints Psych Reports as per HPI Physical Exam Const General: cooperative, healthy appearing, comfortable, no acute distress, well developed, alert and awake Orientation/consciousness: patient oriented x3 Limitations: no limitations HEENT Head: Yes normal to inspection, Yes normocephalic and Yes atraumatic Ears: hearing grossly normal bilaterally Eyes General: appearance normal, both eyes and all related structures Neck Neck: Yes normal visual inspection and Yes trachea midline Chest Chest palpation & inspection: normal inspection of the chest Resp Effort & Inspection: able to speak in complete sentences Cardio Rate: regular rate GI Inspection: Yes normal to inspection General: Yes no CVA tenderness Back/Spine/Pelvis Back: no CVA tenderness Skin General skin exam: no rashes or lesions noted Neuro General: patient oriented x3 Extrem General: Yes normal to inspection Psych Appearance: grossly normal and well kempt Mental Status: mental status grossly normal Speech and movement: Clear speech present Affect: normal affect Attitude: cooperative Thought process: Normal thought process present Thought content: Normal thought content present Insight: Fair insight present (Psych) Judgement: Fair judgement present (Psych) Results AMB Urinalysis, Automated UA Leukoctes 70 Barbara/uL Last Edit by ETHERAmadison on 02/19/24 14:03 UA Nitrite Last Edit by Crowd Castlyla StageMarkmadison on 02/19/24 14:03 UA Urobilinogen 0.2 mg/dL Last Edit by Crowd Castlyla StageMarkmadison on 02/19/24 14:03 UA Protein 15 mg/dL Last Edit by ETHERAmadison on 02/19/24 14:03 UA pH 6.0 Last Edit by ETHERAmadison on 02/19/24 14:03 UA Blood 0 Deandre/uL Last Edit by [employer] on 02/19/24 14:03 UA Specific [place] 1.030 Last Edit by ETHERAmadison on 02/19/24 14:03 UA Ketone Negative Last Edit by ETHERAmadison on 02/19/24 14:03 UA Bilirubin 1 mg/dL Last Edit by ETHERAmadison on 02/19/24 14:03 UA Glucose 0 mg/dL Last Edit by ETHERAmadison on 02/19/24 14:03 Results Reviewed Results Reviewed: Laboratory Last Values Urine pH (Auto) 6.0 02/19/24 13:33 Specific [place] (Auto) 1.030 02/19/24 13:33 Urine Protein (Auto) 15 mg/dL 02/19/24 13:33 Glucose (UA)(Auto) 0 mg/dL 02/19/24 13:33 Urine Ketones (Auto) Negative 02/19/24 13:33 Urine Blood (Auto) 0 Deandre/uL 02/19/24 13:33 Urine Bilirubin (Auto) 1 mg/dL 02/19/24 13:33 Urine Urobilinogen (Auto) 0.2 mg/dL 02/19/24 13:33 Leukocyte Esterase (Auto) 70 Barbara/uL 02/19/24 13:33 Date of Service: 02/10/24 EXAMINATION: US RETROPERITONEAL COMPLETE (RENAL) FINDINGS: RIGHT KIDNEY: Right kidney surgically absent. LEFT KIDNEY: 11.1 x 5.3 x 5.9 cm (SAG x AP x TRV). No hydronephrosis. A 3 mm mid pole calculus. Renal cortical thickness is normal. Limited visualization. IMPRESSION: 1. Right kidney surgically absent. 2. Left renal 3 mm nonobstructive calculus. No hydronephrosis. Assessment & Plan Assessment & Plan (1) Nephrolithiasis: Code(s): N20.0 - Calculus of kidney Category: Medical (2) Clear cell carcinoma of right kidney: Comment: status post nephrectomy, at [facility] in January. 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 Marilyn grade 3. Stage IIIA, with renal vein extention. Stutent started on June 17. Code(s): C64.1 - Malignant neoplasm of right kidney, except renal pelvis Category: Medical (3) Renal cell carcinoma: Code(s): C64.9 - Malignant neoplasm of unspecified kidney, except renal pelvis Category: Medical Plan In office urinalysis results reviewed with the patient today; as noted above. Recent renal imaging results reviewed with the patient today; as noted above. Discussed importance of continuing to follow-up with pulmonology, oncology, as well as urology. All questions regarding renal cancer and metastasis were answered to the best of my ability. Will obtain CT of the abdomen and pelvis in 1 year BUN and creatinine ordered for imaging. Patient currently denies any bothersome urinary issues or concerns. She reports be happy with current voiding parameters. Discussed, stress, and educated on the importance of adequate hydration relation to nephrolithiasis as well as overall health and well-being. Follow-up in 1 year with imaging to be completed prior; or sooner with any issues, concerns, and or questions. Orders: Orders AMB Urinalysis Automated 02/19/24 Z13.9 - Encounter for screening, unspecified Medications: Changed From levothyroxine pt to take 50mcg daily 25 mcg PO QAM To levothyroxine pt to take 50mcg daily 12.5 mcg PO QAM Discontinued levothyroxine Discontinued Reason: Duplicate 100 mcg PO DAILY 30 caps 4RF levothyroxine (Synthroid) Discontinued Reason: Doctor's Order 75 mcg PO DAILY 30 tabs 3RF Magic Mouthwash Diphen/Lido/Antacid 1:1:1 Lidocaine Viscous 2 % 80mL; diphenhydramine 12.5 mg/5 mL 80mL; aluminum-mag hydrox-simeth [id number]/5mL 80mL Discontinued Reason: Duplicate 10 mL PO QID 240 mL 3RF Patient Instructions: The patient had an opportunity to ask questions regarding the treatment plan. All questions were answered. Physical exam, labs, and imaging were discussed and reviewed in detail. As well as risks, benefits, and discussion of treatment choices. No major barriers to understanding were identified. The patient expressed understanding and agreement with the above treatment plan. The patient was made aware they should contact our office by phone for worsening of their current condition, the appearance of new symptoms, or with any questions or concerns. Compliance is encouraged with any medications and follow up testing that is ordered. It is a privilege to be allowed the opportunity to participate in? your urological care.? Again, if you have any questions or concerns If you have any questions or concerns please do not hesitate to contact me. The office is [phone]. This note is constructed using voice recognition software. While every effort has been made to ensure accuracy evp managing director errors may have been included. Yours sincerely, ARLEY Gan Coding Level of Care Code Est Pt Level 4 (18936) Diagnoses Nephrolithiasis N20.0 Clear cell carcinoma of right kidney C64.1 Renal cell carcinoma C64.9 Time Spent (min) 35
== END 2024-02-19 14:07 | disposition home or self-care (01) ==
PROVIDERS: PCP Student in an Organized Health Care Education/Training Program; Visit Provider Nurse Practitioner Family
DX: N20.0 Calculus of kidney (principal); C64.1 Malignant neoplasm of right kidney, except renal pelvis; C64.9 Malignant neoplasm of unspecified kidney, except renal pelvis
CPT/HCPCS: 99214

== ENCOUNTER → 2024-02-19 13:23 | Outpatient (BNVA) | payer MEDICAID, SELFPAY | PROVIDERS: PCP Student in an Organized Health Care Education/Training Program; Visit Provider Nurse Practitioner Family | DX: N20.0 Calculus of kidney (principal); C64.1 Malignant neoplasm of right kidney, except renal pelvis; Z90.5 Acquired absence of kidney | CPT/HCPCS: 81003; 99212 ==

== ENCOUNTER 2024-02-25 10:53 | Outpatient (REF) | payer MEDICAID, SELFPAY ==
[2024-02-25 14:36] LABS: Free T4 (Free Thyroxine) 1.21 ng/dL (0.71-1.85); Thyroid Stimulating Hormone 0.31 uIU/mL (0.32-4.0)
[2024-02-25 14:40] LABS: Blood Urea Nitrogen 14 mg/dL (9-16); Estimated Glomerular Filt Rate > 60
== END 2024-02-25 10:54 | disposition home or self-care (01) ==
LOC: HO.HHCL 10:53
PROVIDERS: Referring Provider Nurse Practitioner Family; Visit Provider Student in an Organized Health Care Education/Training Program
DX: E03.9 Hypothyroidism, unspecified (principal); N20.0 Calculus of kidney; C64.1 Malignant neoplasm of right kidney, except renal pelvis; C64.9 Malignant neoplasm of unspecified kidney, except renal pelvis
CPT/HCPCS: 36415; 82565; 84439; 84443; 84520

== ENCOUNTER 2024-03-10 13:51 | Outpatient (REF) | payer MEDICAID, SELFPAY ==
--- NOTE | ~2024-03-10 | CT_ITS ---
EXAMINATION: CT ABDOMEN AND PELVIS WITH CONTRAST CLINICAL INFORMATION: Calculus of kidney. Neoplasm of the renal pelvis. COMPARISON: CT dated August 08, 2023. TECHNIQUE: Multidetector volumetric images were obtained from the superior aspect of the liver through the pubic symphysis following administration 85 mL of Omnipaque 350 intravenous contrast without reported immediate complications. Sagittal and coronal reformatted images were obtained on the technologist's workstation. Oral contrast: No This CT examination was performed using dose optimization techniques as appropriate, variously including the following: *Automated exposure control *Adjustment of mA and/or kV according to patient size (this includes techniques or standardized protocols for targeted exams where dose is matched to indication/reason for exam; i.e. extremities or head) *Use of iterative reconstruction technique DLP: 300 mGy-cm FINDINGS: . Submitted for interpretation on April 09, 2024. LIVER, GALLBLADDER, AND BILIARY TREE: Liver measures 15 cm. No focal mass. Main portal vein and main hepatic veins are patent. Intrahepatic portion of the IVC is patent. Gallbladder is contracted. No pericholecystic fluid collection or gallbladder wall thickening. No intrahepatic or extrahepatic biliary ductal dilatation. PANCREAS: No focal pancreatic mass. No peripancreatic fluid collections. No main pancreatic ductal dilatation. SPLEEN: Measures 8 cm. No focal mass. ADRENAL GLANDS: Vascular clips in the region of the right adrenal gland which appears absent. No nodular lesions, left adrenal gland. KIDNEYS AND URETERS: Status post right nephrectomy. No renal mass or hydronephrosis in the left kidney. Normal renal cortex enhancement. No delayed images to evaluate the urinary collecting system. BLADDER: Fluid-filled. GASTROINTESTINAL TRACT: Abundant stool. No intestinal obstruction pattern. No pneumatosis intestinalis. No pneumoperitoneum. No ascites. Appendix appears normal. ABDOMINAL WALL: Diastases abdominal rectus muscles interpretation omental fat in the periumbilical region. LYMPH NODES: No gross lymphadenopathy. VASCULAR: The abdominal aorta wall and iliac arteries without aneurysm or dissection. PELVIC VISCERA: Absent reproductive organs. OSSEOUS STRUCTURES: Multilevel lower thoracic and lower lumbar spondylosis without acute fracture or listhesis. No lytic or blastic lesions. Degenerative changes in the hips. Probable bony island right femoral head. Central venous line catheter in the right atrium. CT/CT abdomen pelvis w IV con IMPRESSION: No tumor recurrence or metastatic disease. Stable. Fleischner guidelines were followed. Electronically signed by: Helio Ortega MD 04/09/2024 12:01 PM EDT RP
--- NOTE | ~2024-03-10 | CT_ITS ---
EXAMINATION: CT CHEST WITH CONTRAST CLINICAL INFORMATION: Renal malignancy. Prior left lung nodule biopsy. COMPARISON: CT chest dated October 07, 2023. July 04, 2022 TECHNIQUE: Multidetector volumetric CT imaging of the chest was obtained after the administration of 50 mL of Omnipaque 350 intravenous contrast without reported immediate adverse reactions. Axial MIP volume rendering provided. Sagittal and coronal reformatted images were obtained. This CT examination was performed using dose optimization techniques as appropriate, variously including the following: *Automated exposure control *Adjustment of mA and/or kV according to patient size (this includes techniques or standardized protocols for targeted exams where dose is matched to indication/reason for exam; i.e. extremities or head) *Use of iterative reconstruction technique DLP: 157 mGy-cm FINDINGS: . Submitted for interpretation on April 09, 2024 LUNGS: 2 mm groundglass nodule, left lung base. 3 mm groundglass nodule, left lower lung lobe. No honeycombing. No bronchiectasis. No consolidation. Respiratory airways patent. MEDIASTINUM: No lymphadenopathy. No pericardial effusion. No aneurysm or dissection, thoracic aorta. Port-A-Cath in the anterior left upper chest ends in the right atrium. PLEURA: No pleural effusion or pneumothorax. AXILLA: No lymphadenopathy. UPPER ABDOMEN: Status post right nephrectomy. Please refer to this CT abdomen and pelvis. OSSEOUS STRUCTURES: Multilevel spondylosis without acute fracture or listhesis. No lytic or blastic lesions. CT/CT chest w IV con IMPRESSION: Stable subcentimeter groundglass nodules, left lung. Fleischner guidelines were followed. Electronically signed by: Helio Ortega MD 04/09/2024 12:11 PM EDT
[2024-03-10] MEDS: iohexoL 350 MG/ML 100 ML INFUS..BTL IV (15:09)
== END 2024-03-10 13:52 | disposition home or self-care (01) ==
LOC: HO.CT 13:51
PROVIDERS: PCP Student in an Organized Health Care Education/Training Program; Visit Provider Internal Medicine Medical Oncology
DX: C64.9 Malignant neoplasm of unspecified kidney, except renal pelvis (principal); N20.0 Calculus of kidney; R91.8 Other nonspecific abnormal finding of lung field
CPT/HCPCS: 71260; 74177; Q9967

== ENCOUNTER → 2024-03-10 13:53 | Outpatient (BNV) | payer MEDICAID, SELFPAY | PROVIDERS: PCP Student in an Organized Health Care Education/Training Program; Visit Provider Radiology Diagnostic Radiology | DX: N20.0 Calculus of kidney (principal); R91.1 Solitary pulmonary nodule | CPT/HCPCS: 71260; 74177 ==

== ENCOUNTER 2024-03-18 12:57 | Outpatient (AMB) | payer MEDICAID, SELFPAY ==
--- NOTE | 2024-03-18 13:04 | A.OFFVIS_ITS ---
Intake Visit Reasons: 2w follow up s/p Right Venaseal Intake Note: Patient presents for 2 week follow up right leg venaseal. Patient has no complaints. Accompanied by: Self / Same As Patient Allergies phenylephrine [From CONTAC-D COLD (PE)] Allergy (Unknown, Verified 03/18/24 13:06) EDEMA Contac-D Allergy (Unknown, Uncoded 02/19/24 14:09) Unknown HPI HPI 2w follow up s/p Right Venaseal: Details: Krys (mostly Irish speaking, Jennifer is translating) is presenting today for a 2w follow up to right GSV cryoacralate ablation. She states she feels good and has no complaints. She denies any pain at the site of the procedure; however, she states she continues to have discomfort lower on her right leg, which she is also hoping to get done next. She is not currently wearing compression stockings but is elevating her legs. She states she has minimal pain/discomfort in her left lower leg. She denies any redness/swelling/tenderness to the area. [facility] Medical History Pulmonary nodules Right renal mass Anxiety Depression Clear cell carcinoma of right kidney Surgical History Hx of colonoscopy History of esophagogastroduodenoscopy (EGD) S/P skin biopsy Status post hysterectomy Family History Maternal Uncle Stomach cancer Maternal Aunt Stomach cancer Paternal Aunt Colon cancer Sister Liver cancer Sister Skin cancer Social History Household Members: None Housing: Apartment Are you a primary cardiac care unit nurse to a significant other at home: No Do you presently have visiting nurse or other home services: Yes Alcohol intake: former Patient Tobacco Use Status: Never used Tobacco service: No Current occupational status: unemployed Review of Systems Const Reports as per HPI and Denies weakness ENT Reports Normal hearing present and Denies dizziness Card Reports as per HPI, Denies chest pain, Denies chest pain at rest, Denies chest pain with activity, Denies dyspnea and Denies dyspnea on exertion Resp Reports as per HPI, Denies cough, Denies dyspnea and Denies dyspnea on exertion GI Reports as per HPI, Denies abdominal pain, Denies nausea and Denies vomiting Musc Denies numbness Skin/Breast Reports as per HPI, Denies erythema and Denies wounds Neuro Reports Normal hearing present, Denies dizziness, Denies numbness, Denies Sensory deficit (Neuro) and Denies weakness Psych Reports no additional complaints Endo Reports no additional complaints Physical Exam Const General: healthy appearing and no acute distress Orientation/consciousness: patient oriented x3 HEENT Head: Yes normal to inspection Ears: hearing grossly normal bilaterally Mouth: Normal oral and palatal mucosa present Resp Effort & Inspection: normal respiratory effort and able to speak in complete sentences Auscultation: clear to auscultation bilaterally Cardio Jugular venous distension: no JVD Rate: regular rate Rhythm: regular rhythm Heart sounds: S1 normal heart sound present and S2 normal heart sound present Bruits: no abdominal aortic bruits, no carotid bruits, no femoral bruits and no renal bruits Peripheral pulses: Peripheral pulses 2+ throughout GI Inspection: Yes normal to inspection Palpation (GI): No Abdominal aortic bruit present Skin Other: Small torturous veins noted below her posterior right knee, not painful to palpation. No overlying erythema or wounds. Site of Venaseal is C/D/I, veins slightly bulging but not painful to palpation. CEAP C - skin color changes E - primary etiology A - superficial veins P - reflux General skin exam: no rashes or lesions noted Wounds: no wounds Hair: normal Neuro General: patient oriented x3 Cranial nerves: Yes Normal hearing present Cognition (Neuro): normal cognition Gait exam (Neuro): Normal gait present Motor exam (neuro): 5/5 motor strength present throughout Sensory Exam: No Sensory deficit (Neuro) Extrem General: Yes normal to inspection, Yes full ROM, Yes capillary refill normal and Yes normal gait Results Reviewed Results Reviewed: USVI s/p cryoacralate ablation Assessment & Plan Assessment & Plan (1) Varicose veins of right lower extremity with inflammation: Comment: 01/30/2024 - right great saphenous vein Cyanoacralate ablation Code(s): I83.11 - Varicose veins of right lower extremity with inflammation Category: Medical Plan Krys is 2w s/p right GSV Venaseal. We reviewed the results of the follow up US, which is mostly negative. She continues to have some right lower leg discomfort/heaviness but denies pain. She is not currently using compression stockings but is elevating her legs. At this point we will have her follow up with us in 6m and reassess. We will have her continue with conservative tx including compression stockings, walking, and elevation of her legs. Thank you for allowing us to participate in the pt's care. We will have her follow up with us in 6 months, unless anything changes, and she can reach out sooner. If there are any questions or concerns, do not hesitate to reach out. Coding Level of Care Code Established Pt Est Pt Level 4 (37223) Established Pt Complex EM visit Add On G2211 Patient Type Established Diagnoses Varicose veins of right lower extremity with inflammation I83.11 Time Spent (min) 30 Comment Review of USVI, pt education
== END 2024-03-18 13:41 | disposition home or self-care (01) ==
PROVIDERS: PCP Student in an Organized Health Care Education/Training Program; Visit Provider Physician Assistant Surgical
DX: I83.11 Varicose veins of right lower extremity with inflammation (principal)
CPT/HCPCS: 99214

== ENCOUNTER → 2024-03-18 12:57 | Outpatient (BNVA) | payer MEDICAID, SELFPAY | PROVIDERS: PCP Student in an Organized Health Care Education/Training Program; Visit Provider Surgery Vascular Surgery | DX: I83.11 Varicose veins of right lower extremity with inflammation (principal); Z98.890 Other specified postprocedural states | CPT/HCPCS: 99212 ==

== ENCOUNTER 2024-03-23 10:28 | Outpatient (REF) | payer MEDICAID, SELFPAY ==
[2024-03-23 11:25] LABS: MANUAL DIFF FLAG NO
[2024-03-23 11:28] LABS: Basophils Percent Auto 0.3 % (0-2); Eosinophils Percent Auto 1.3 % (0-4); Hematocrit 32.7 % (37.0-47.0); Lymphocytes Absolute Auto 0.9 X10*3/uL (1.2-4.9); Mean Corpuscular HGB Conc 33.6 g/dl (31.0-35.0); Mean Corpuscular Hemoglobin 33.1 pg (27.0-33.0); Mean Corpuscular Volume 98.5 fL (80.0-98.0); Mean Platelet Volume 10.3 fL (9.4-12.3); Monocytes Absolute Auto 0.3 X10*3/uL (0.1-1.2); Monocytes Percent Auto 10.1 % (2-11); Neutrophils Absolute Auto 1.7 x10*3/uL (2.0-8.3); Neutrophils Percent Auto 57.3 % (45-73); Platelet Count 162 X10*3/uL (160-400); Red Blood Count 3.32 X10*6/uL (4.20-5.50); Red Cell Distribution Width 13.3 % (11.0-16.0)
[2024-03-23 12:39] LABS: Vitamin B12 213 pg/mL (200-900)
[2024-03-23 12:41] LABS: Alanine Aminotransferase 25 U/L (0-31); Albumin Level 3.7 g/dL (3.5-5.0); Alkaline Phosphatase 69 U/L (39-117); Anion Gap 11 (12-20); Aspartate Amino Transferase 23 U/L (5-31); Bilirubin Direct 0.1 mg/dL (0.0-0.5); Bilirubin Total 0.3 mg/dL (0.0-1.0); Blood Urea Nitrogen 13 mg/dL (9-16); Calcium 9.6 mg/dL (8.4-10.2); Carbon Dioxide 29 mmol/L (22-29); Chloride 108 mmol/L (96-108); Estimated Glomerular Filt Rate > 60; Free T4 (Free Thyroxine) 1.07 ng/dL (0.71-1.85); Glucose Random 96 mg/dL (60-115); Potassium 4.5 mmol/L (3.3-5.1); Sodium 143 mmol/L (135-145); Thyroid Stimulating Hormone 1.43 uIU/mL (0.32-4.0); Total Protein 6.1 g/dL (6.5-8.0)
== END 2024-03-23 10:29 | disposition home or self-care (01) ==
LOC: HO.HHCL 10:28
PROVIDERS: Internal Medicine Medical Oncology; Visit Provider Student in an Organized Health Care Education/Training Program
DX: C64.9 Malignant neoplasm of unspecified kidney, except renal pelvis (principal); E03.9 Hypothyroidism, unspecified
CPT/HCPCS: 36415; 80053; 82248; 82607; 84439; 84443; 85025

== ENCOUNTER 2024-04-15 11:15 | Outpatient (AMB) | payer MEDICAID, SELFPAY ==
--- NOTE | 2024-04-15 11:20 | MHC.OFFVIS ---
Vital Signs 04/15/24 11:21 Weight 146 lb 9.718 oz BP 126/74 Blood Pressure Location Rt brachial Position Sitting Pulse 54 Pulse Source Pulse Oximeter Pulse Oximetry (%) 100 Oxygen Delivery Method Room Air Intake Visit Reasons: pulmonary nodules Allergies phenylephrine [From CONTAC-D COLD (PE)] Allergy (Unknown, Verified 04/15/24 11:26) EDEMA morphine Allergy (Verified 04/15/24 11:26) Rash Contac-D Allergy (Unknown, Uncoded 04/15/24 11:26) Unknown Medication List - Last Reconciled 04/15/24 by Nevaeh Solorzano LPN apixaban (Eliquis) 5 mg PO BID atorvastatin 1 tab PO BEDTIME butenafine 1% (Lotrimin Ultra) 1 appl topical BID cabozantinib 40 mg PO DAILY cholestyramine (with sugar) 4 gram (Questran) 4 grams PO TID diphenoxylate-atropine 2.5-0.025 mg (Lomotil) 1 tab PO QID docusate sodium 1 cap PO BEDTIME PRN dulaglutide (Trulicity) 0.75 mg subcut QWEEK famotidine 20 mg PO DAILY gabapentin 1 cap PO QPM lancets (TRUEplus Lancets) As directed levothyroxine 100 mcg PO DAILY levothyroxine 12.5 mcg PO QAM lidocaine 5% 1 appl topical QWEEK loperamide (Imodium A-D) 2 mg PO Q4H PRN losartan 25 mg PO DAILY Magic Mouthwash Diphen/Lido/Antacid 1:1:1 10 mL PO QID metformin 500 mg PO BID multivitamin 1 tab PO QAM naloxone 4 mg/actuation intranasal omeprazole 40 mg PO DAILY ondansetron 8 mg PO Q8H prochlorperazine maleate (Compazine) 10 mg PO Q6H PRN propranolol 10 mg PO BID sennosides (Senokot) 8.6 mg PO BID sertraline 100 mg PO DAILY sertraline (Zoloft) 200 mg PO DAILY sucralfate 1 g PO TID PRN zolpidem 10 mg PO BEDTIME HPI Comments Details: The patient is a 59 year woman with a known history of renal cell carcinoma diagnosed back in 2019 status post nephrectomy it was grade 3. She was also placed on sutent. Daily the patient has been complaining of increasing fatigue and daytime drowsiness. She was also recently diagnosed with hypothyroidism and starting a small dose of levothyroxine. Back in June 20252022 the patient had a CT scan of the abdomen and chest which I personally reviewed. The patient had multiple pulmonary nodules which appear to be solid well-circumscribed primarily in the bases bilaterally as well as peripheral. Also noted during that CT scan I did appreciate also some areas of mosaic pattern suggesting the possibility of airways disease. She did have her repeat chest x-ray 07/07/2022 which I personally reviewed now her pulmonary nodules appear to be little larger in size in appearance. She has new nodules and also in a peripheral distribution primarily at the bases which is always concerning for a hematogenous spread in process. The nodules are indeed concerning for a malignant process. The nodules are almost 8 mm in size based on my measurements. I did speak to Radiology regarding a CT-guided biopsy in although be difficult it is approachable. I will request a CT-guided biopsy at this time. 04/15/2024 the patient is here for a pulmonary follow-up visit. Overall she is doing well. She continues on immune therapy for her metastatic cancer. She seems to be tolerating it well though she has had issues with ulcerations in her mouth and then rashes. Likely result of the immune therapy. The patient otherwise has been breathing well. Denies any cough chest pain shortness of breath. Denies any wheezing. We did review her recent CT scan of the chest that was done 03/28/2024. No evidence of any pneumonitis note interstitial lung disease. Her pulmonary nodules drastically improved. Now she just has subcentimeter pulmonary nodule best appreciated on the left side. Otherwise patient is doing well will follow-up in a year's time. [facility] Medical History Pulmonary nodules Right renal mass Anxiety Depression Clear cell carcinoma of right kidney Surgical History Hx of colonoscopy History of esophagogastroduodenoscopy (EGD) S/P skin biopsy Status post hysterectomy Family History Maternal Uncle Stomach cancer Maternal Aunt Stomach cancer Paternal Aunt Colon cancer Sister Liver cancer Sister Skin cancer Social History Household Members: None Housing: Apartment Are you a primary healthcare network consultant to a significant other at home: No Do you presently have visiting nurse or other home services: Yes Alcohol intake: former Patient Tobacco Use Status: Never used Tobacco service: No Current occupational status: unemployed Review of Systems Const Reports fatigue and Denies fever(s) Eyes Denies change in vision ENT Denies change in voice Card Denies chest pain and Denies dyspnea on exertion Resp Denies dyspnea on exertion and Denies wheezing Musc Reports no additional complaints Skin/Breast Reports rash Neuro Reports no additional complaints Psych Reports no additional complaints Endo Reports fatigue Lyle/Lymph Denies easy bruising and Denies lymphadenopathy Aller/Immun Denies wheezing Physical Exam Vital Signs: Last Vital Signs Pulse 54 04/15/24 11:21 BP 126/74 04/15/24 11:21 Pulse Ox 100 04/15/24 11:21 Oxygen Delivery Method Room Air 04/15/24 11:21 Const General: comfortable HEENT Head: Yes normocephalic Neck Neck: Yes supple Chest Chest palpation & inspection: normal inspection of the chest Resp Effort & Inspection: normal respiratory effort Auscultation: clear to auscultation bilaterally Cardio Rate: regular rate Rhythm: regular rhythm Heart sounds: S1 normal heart sound present and S2 normal heart sound present GI Palpation (GI): Soft to palpation Skin General skin exam: no rashes or lesions noted Assessment & Plan Assessment & Plan (1) Pulmonary nodules: Code(s): R91.8 - Other nonspecific abnormal finding of lung field Category: Medical (2) Clear cell carcinoma of right kidney: Comment: status post nephrectomy, at [facility] in January. 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 Marilyn grade 3. Stage IIIA, with renal vein extention. Stutent started on June 17. Code(s): C64.1 - Malignant neoplasm of right kidney, except renal pelvis Category: Medical Plan Serial CT chest continue immune therapy F/U in 1 yr Coding Level of Care Code Est Pt Level 4 (62281) Diagnoses Pulmonary nodules R91.8 Clear cell carcinoma of right kidney C64.1 Time Spent (min) 16
[2024-04-15 11:21] VITALS: BP 126/74; PULSE 54; O2SAT 100
== END 2024-04-15 12:01 | disposition home or self-care (01) ==
LOC: HO.HPS 11:15
PROVIDERS: PCP Student in an Organized Health Care Education/Training Program; Visit Provider Hospitalist
DX: R91.8 Other nonspecific abnormal finding of lung field (principal); C64.1 Malignant neoplasm of right kidney, except renal pelvis
CPT/HCPCS: 99214

== ENCOUNTER → 2024-04-15 11:15 | Outpatient (BNVA) | payer MEDICAID, SELFPAY | PROVIDERS: PCP Student in an Organized Health Care Education/Training Program; Visit Provider Hospitalist | DX: R91.8 Other nonspecific abnormal finding of lung field (principal); C64.1 Malignant neoplasm of right kidney, except renal pelvis; Z90.5 Acquired absence of kidney | CPT/HCPCS: 99212 ==

== ENCOUNTER 2024-04-20 08:42 | Outpatient (REF) | payer MEDICAID, SELFPAY ==
[2024-04-20] MEDS: iohexoL 350 MG/ML 100 ML INFUS..BTL IV (10:15)
== END 2024-04-20 08:43 | disposition home or self-care (01) ==
LOC: HO.CT 08:42
PROVIDERS: PCP Student in an Organized Health Care Education/Training Program; Visit Provider Student in an Organized Health Care Education/Training Program
DX: H93.A1 Pulsatile tinnitus, right ear (principal)
CPT/HCPCS: 70496; 70498; Q9967

== ENCOUNTER → 2024-04-20 08:44 | Outpatient (BNV) | payer MEDICAID, SELFPAY | PROVIDERS: PCP Student in an Organized Health Care Education/Training Program; Visit Provider Radiology Diagnostic Radiology | DX: H93.A1 Pulsatile tinnitus, right ear (principal) | CPT/HCPCS: 70496 ==

== ENCOUNTER 2024-08-12 08:21 | Outpatient (REF) | payer MEDICAID, SELFPAY ==
--- NOTE | ~2024-08-12 | CT_ITS ---
CLINICAL HISTORY: Follow-up on renal cell carcinoma CT abdomen and pelvis with contrast Comparison: 03/10/2024 02:44 PM EDT: CTSR: CT ABDOMEN PELVIS W IV CON Findings: Findings above the diaphragm are discussed on the concurrent CT chest report. Liver, gallbladder and biliary tree, spleen, pancreas and left kidney are unremarkable. No left adrenal nodules. The right kidney and adrenal gland appears surgically absent. No suspicious findings in the right nephrectomy bed. No bowel obstruction, pneumoperitoneum, or pneumatosis. Pelvic contents unremarkable. Normal appendix. Status post hysterectomy. No adnexal masses. No ovarian lesions appreciated. No pathologically enlarged lymph nodes within the abdomen or pelvis. No vascular dilation or fluid collections. Small fat containing infraumbilical hernia. The bones are intact. IMPRESSION: No findings of local recurrence or metastatic disease below the diaphragm. This document has been electronically signed by: Maria Esther Bhardwaj MD on 08/13/2024 09:03:14
--- NOTE | ~2024-08-12 | CT_ITS ---
CLINICAL HISTORY: Follow-up on pulmonary nodules. CT chest with contrast Comparison: CT/SR - CT CHEST W IV CON - 03/10/24 14:44 EDT Findings: The heart is normal size. Left chest port in good position. The visualized thyroid and mediastinum are unremarkable. No pathologically enlarged hilar or mediastinal lymph nodes. No chest wall lesions or axillary adenopathy. Trachea and central bronchi are patent. 4 mm pulmonary nodule in the right lower lobe image 108 series 6 previously measured 2 mm. Left lower lobe nodule on image 102 measures up to 8 mm previously 4 mm. A peripheral superior segment left lower lobe nodule on image 72 measures 3 mm, previously 4 mm. Punctate superior segment right lower lobe nodule on image 78 is stable. No new nodules identified. The abdominal structures will be discussed on the same day CT abdomen pelvis report. The bones are intact. IMPRESSION: 1. Enlarging pulmonary nodules highly concerning for metastatic disease. The largest nodule within the left lower lobe measures up to 8 mm on the current study, previously 4 mm. This document has been electronically signed by: Maria Esther Bhardwaj MD on 08/13/2024 08:57:45
[2024-08-12] MEDS: iohexoL 350 MG/ML 100 ML INFUS..BTL IV (10:04)
[2024-08-13 10:01] LABS: Creatinine POC 1.1 mg/dL (0.5-1.4); GFR POC 55
== END 2024-08-12 08:22 | disposition home or self-care (01) ==
LOC: HO.CT 08:21
PROVIDERS: PCP Student in an Organized Health Care Education/Training Program; Visit Provider Internal Medicine Medical Oncology
DX: R91.8 Other nonspecific abnormal finding of lung field (principal)
CPT/HCPCS: 71260; 74177; 82565; Q9967

== ENCOUNTER → 2024-08-12 08:23 | Outpatient (BNV) | payer MEDICAID, SELFPAY | PROVIDERS: PCP Student in an Organized Health Care Education/Training Program; Visit Provider Radiology Diagnostic Radiology | DX: C64.9 Malignant neoplasm of unspecified kidney, except renal pelvis (principal); R91.8 Other nonspecific abnormal finding of lung field | CPT/HCPCS: 71260; 74177 ==

== ENCOUNTER 2024-09-09 16:04 | Emergency (ER) | payer MEDICAID, SELFPAY ==
--- NOTE | ~2024-09-09 | CT_ITS ---
CLINICAL HISTORY: L sided headache, neck pain, R sided weakness CT of the head without contrast. Comparison 04/20/2024. Findings: No acute hemorrhage or infarct is seen. No masses are identified and there is no hydrocephalus. There is no mass-effect. Impression: No acute intracranial abnormality is identified. There is mild paranasal sinus disease. CT angiogram of the head and neck. Multiplanar MIPS were obtained. Comparison 04/20/2024. Findings: The carotid and vertebral arteries are patent. No dissection is seen. There is mild atherosclerotic plaque without significant stenosis. 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 No large vessel occlusion or focal high-grade narrowing is seen in the [id number]. No aneurysm or vascular malformation is identified. There are prominent degenerative changes in the lower lumbar spine with developmental narrowing of the spinal canal. Impression: No acute vascular abnormality is identified. Other findings as above. This document has been electronically signed by: Eleuterio Mata MD on 09/09/2024 18:51:09
--- NOTE | 2024-09-09 16:15 | ECG_ITS ---
Test Reason : RIGHT SIDE HEAVINESS Blood Pressure : */* mmHG Vent. Rate : 59 BPM Atrial Rate : 59 BPM P-R Int : 176 ms QRS Dur : 80 ms QT Int : 442 ms P-R-T Axes : 26 22 33 degrees QTcB Int : 437 ms Sinus bradycardia Otherwise normal ECG When compared with ECG of 31-Jul-2019 21:45, No significant change was found Referred By: Ana Laura Brownlee Electronically Signed By: KRISTEN PIERCE
--- NOTE | 2024-09-09 16:27 | ED.NEUROSD ---
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 No trauma, no fevers. She cannot do certain tasks at home due to weakness. No confusion or change in speech. She was referred to our ED after going to oncology today and they noted her deficits. She also c/o feeling R eye was blurry and woke up one AM with R eye feeling swollen. Onset (ago): week(s) (1) Timing confirmed by: family member Location: right arm and right leg History of same: No Severity: moderate Quality: weak Relieving factors: none Exacerbating factors: other (movement) Context: sudden onset On Anticoagulants: Yes Associated symptoms: other (blurry vision) Treatments Prior to Arrival: none Related Data Home Medications ?Medication ?Instructions ?Recorded ?Confirmed losartan 25 mg tablet 25 mg PO DAILY 09/18/20 06/24/24 metformin 500 mg tablet 500 mg PO BID 09/18/20 06/24/24 lancets 33 gauge (TRUEplus Lancets) #100 ea 04/05/21 06/24/24 zolpidem 10 mg tablet 10 mg PO BEDTIME 04/05/21 06/24/24 docusate sodium 100 mg capsule 1 cap PO BEDTIME PRN Constipation 07/12/21 06/24/24 atorvastatin 10 mg tablet 1 tab PO BEDTIME 02/01/22 06/24/24 propranolol 10 mg tablet 10 mg PO BID 04/24/22 06/24/24 famotidine 20 mg tablet 20 mg PO DAILY 12/19/22 06/24/24 multivitamin 1 tab PO QAM 08/14/23 06/24/24 naloxone 4 mg/actuation nasal spray 4 mg intranasal DAILY 08/14/23 06/24/24 levothyroxine 25 mcg tablet 12.5 mcg PO QAM 02/20/24 06/24/24 sertraline 100 mg tablet 100 mg PO DAILY 04/15/24 06/24/24 Previous Rx's ?Medication ?Instructions ?Recorded ondansetron 8 mg disintegrating 8 mg PO Q8H #60 tabs 01/02/23 tablet butenafine 1 % topical cream 1 appl topical BID #45 grams 07/24/23 (Lotrimin Ultra) levothyroxine 100 mcg capsule 100 mcg PO DAILY #30 caps 09/11/23 lidocaine 5 % topical cream 1 appl topical QWEEK #45 grams 09/16/23 Magic Mouthwash 10 ml PO QID #240 mL 04/08/24 Diphen/Lido/Antacid 1:1:1 240 mL suspension butenafine 1 % topical cream 1 appl topical BID #45 grams 06/24/24 (Lotrimin Ultra) apixaban 5 mg tablet (Eliquis) 5 mg PO BID #60 tabs 08/09/24 cabozantinib 40 mg tablet 40 mg PO DAILY #90 tabs 08/23/24 (Cabometyx) Allergies Allergy/AdvReac Type Severity Reaction Status Date / Time phenylephrine Allergy Unknown EDEMA Verified 09/09/24 16:48 [From CONTAC-D COLD (PE)] morphine Allergy Rash Verified 09/09/24 16:48 Contac-D Allergy Unknown Unknown Uncoded 09/09/24 16:48 Review of Systems Review of Systems: Constitutional : No Fever, No Chills, No Fatigue ENT/Mouth : No sore throat, No Rhinorrhea Eyes: No Eye Pain, No Swelling, No Redness, pos blurry vision Cardiovascular : No Chest Pain, No SOB, No Dyspnea on Exertion Respiratory : No Cough, No Sputum Gastrointestinal : No Nausea, No Vomiting, No Diarrhea, No abdominal Pain Genitourinary : No Dysuria, No Urinary Frequency, No Hematuria, Musculoskeletal : No joint pain, No Myalgias, No Joint Swelling Skin : No Skin Lesions, No rash Neuro : pos Weakness, No Numbness, No Dizziness, positive Headache Psych : No Anxiety/Panic, No Depression All other systems reviewed and are negative PMFSH Past Medical History Attestation statement: The following information was validated with the patient. Source: old records reviewed Medical History Pulmonary nodules Right renal mass Anxiety Depression Clear cell carcinoma of right kidney Surgical History Hx of colonoscopy History of esophagogastroduodenoscopy (EGD) S/P skin biopsy Status post hysterectomy Family History Family History Maternal Uncle Stomach cancer Maternal Aunt Stomach cancer Paternal Aunt Colon cancer Sister Liver cancer Sister Skin cancer Social History Social History Household Members: None Housing: Apartment Are you a primary menagerie caretaker to a significant other at home: No Do you presently have visiting nurse or other home services: Yes Alcohol intake: former Patient Tobacco Use Status: Never used Tobacco Advance Directives: No Advance Directives Information Provided: No Patient : No service: No Current occupational status: unemployed Physical Exam Vital Signs: Vital Signs: Last Vital Signs Temp 98 F 09/09/24 16:44 Pulse 59 09/09/24 16:44 Resp 16 09/09/24 16:44 BP 149/81 H 09/09/24 16:44 Pulse Ox 97 09/09/24 16:44 O2 Del Method Room Air 09/09/24 16:44 BMI result Body Mass Index 32.0 Appearance: Alert. Oriented X3. No acute distress. Eyes: Pupils equal, round and reactive to light. ENT: Pharynx normal. Neck: Normal inspection. Neck supple. CVS: Normal heart rate and rhythm. Pulses normal. Respiratory: No respiratory distress. Breath sounds normal. Abdomen: Soft and nontender. Skin: Skin warm and dry. Normal skin color. Normal skin turgor. Extremities: No lower extremity edema. No calf ttp Neuro: Oriented X 3. 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 SILT intact, speech normal, ?slight L lower facial droop Medications Administered Discontinued Medications Generic Name Dose Route Start Last Admin Trade Name Freq PRN Reason Stop Dose Admin Dexamethasone Sodium Phosphate 10 mg 09/09/24 16:15 09/09/24 16:50 Dexamethasone Sod Phosphate 10 Mg/Ml Vial IVPUSH 09/09/24 16:16 10 mg ONCE ONE Administration Acetaminophen 1,000 mg in 100 mls @ 400 mls/hr 09/09/24 17:47 09/09/24 18:11 Ofirmev IV 09/09/24 18:01 400 mls/hr ONCE ONE Administration Iohexol 100 ml 09/09/24 18:03 09/09/24 18:03 Iohexol 350 Mg/Ml 100 Ml Infus..Btl IV 09/09/24 18:04 70 ml ONCE ONE Administration Medical Decision Making Medical Decision Making [facility] Narrative: 59 yo female with PMH of RCC with lung mets s/p nephrectomy she is follows by [facility] last immunotherapy infusion today presents to the ED today from oncology due to neurological deficits including right sided weakness, left sided headache, right eye swelling and blurry vision. highly suspicious of brain mass vs stroke contributing to symptoms due to history of RCC. Will give dose of dexamethasone to address possible brain mass swelling and brain/head CT to visualize possible brain mets. Differential Diagnosis Differential Diagnoses: The differential diagnosis associated with the presentation includes brain mets, stroke Admission/Observation Consideration of admission/observation: Escalation of care including admission/observation considered offered admission for MRI but she refuses aware we cannot fully dx stroke vs mass - she states she knows she plans to follow up [facility] oncology and is not going to stay in the hospital. she is coherent, family is aware agrees with her being able to leave and is taking her home. Lab Data [facility] Lab Attestation statement: I reviewed the patient's lab results. 09/09/24 16:57 09/09/24 16:57 Labs: Lab Results 09/09/24 Range/Units 16:57 WBC 5.3 (4.8-10.8) X10*3/uL RBC 4.15 L (4.20-5.50) X10*6/uL Hgb 12.7 (12.0-16.0) g/dl Hct 35.3 L (37.0-47.0) % MCV 85.1 (80.0-98.0) fL MCH 30.6 (27.0-33.0) pg MCHC 36.0 H (31.0-35.0) g/dl RDW 12.3 (11.0-16.0) % Plt Count 193 (160-400) X10*3/uL MPV 9.9 (9.4-12.3) fL Immature Gran % (Auto) 0.2 (0.0-0.4) % Neut % (Auto) 51.6 (45-73) % Lymph % (Auto) 39.1 (20-40) % [place] % (Auto) 6.2 (2-11) % Eos % (Auto) 2.3 (0-4) % Baso % (Auto) 0.6 (0-2) % Lymph # (Auto) 2.1 (1.2-4.9) X10*3/uL [place] # (Auto) 0.3 (0.1-1.2) X10*3/uL Eos # (Auto) 0.1 (0.0-0.4) X10*3/uL Baso # (Auto) 0.0 (0.0-0.2) X10*3/uL Abs Immat Gran (auto) 0.01 (0.00-0.03) X10*3/uL Absolute Neuts (auto) 2.8 (2.0-8.3) x10*3/uL Absolute Nucleated RBC 0.000 (0.0-0.012) X10*3/uL Nucleated RBC % (auto) 0.0 (0.0-0.2) /100WBC PT 13.2 H (10.9-12.4) SEC INR 1.1 (0.9-1.1) Sodium 143 (135-145) mmol/L Potassium 4.4 (3.3-5.1) mmol/L Chloride 110 H (96-108) mmol/L Carbon Dioxide 27 (22-29) mmol/L Anion Gap 10 L (12-20) BUN 18 H (9-16) mg/dL Creatinine 0.73 (0.5-1.4) mg/dL Estim Creat Clear Calc 96.0 Estimated GFR > 60 Random Glucose 102 (60-115) mg/dL Calcium 8.7 (8.4-10.2) mg/dL Magnesium 1.8 (1.6-2.6) mg/dL Total Bilirubin 0.3 (0.0-1.0) mg/dL Direct Bilirubin 0.1 (0.0-0.5) mg/dL AST 41 H (5-31) U/L ALT 56 H (0-31) U/L Alkaline Phosphatase 99 (39-117) U/L Troponin I High Sens < 2.7 (<3.5-17.0) ng/L Total Protein 6.3 L (6.5-8.0) g/dL Albumin 3.8 (3.5-5.0) g/dL Influenza Type A (PCR) NEGATIVE (Negative) Influenza Type B (PCR) NEGATIVE (Negative) RSV RNA Qual (PCR) NEGATIVE (Negative) SARS-CoV-2 RNA (RT-PCR) NEGATIVE (Negative) Independent Interpretation I performed an independent interpretation of an: EKG and CT Scan (no acute findings) Interpretation: Rate: 59 Rhythm: sinus bradycardia [place]: normal Normal P waves. Normal CHIDI. Normal QRS complex. ST T wave : inverted t wave V1, no CORAL qTC: 437 prior studies: no acute ischemia The study has been interpreted contemporaneously by me. . Radiology Impression Discussion of test interpretation with radiology: I have reviewed the radiologist's reading. Independent Historian Clinical information obtained from an independent historian. History obtained from or confirmed by: Other (family member ) External Record Review External record reviewed: Outpatient record and Prior outpatient radiology Chronic Conditions Patient?s care impacted by: Cancer NIH Stroke Scale Internal: Initial- Upon Arrival Level of Consciousness: Alert Level of Consciousness Questions: Answers both questions correctly Level of Consciousness Commands: Performs both tasks correctly Best Gaze: Normal Visual: No visual loss Facial Palsy: Minor paralyis Motor Arm (Right): Drift Motor Arm (Left): No drift Motor Leg (Right): Drift Motor Leg (Left): No drift Limb Ataxia: Absent Sensory: Normal Best Language: No aphasia Dysarthia: Normal Extinction and Inattention: No abnormality Score: 3 Discharge Plan Discharge Clinical Impression: Right sided weakness Patient Disposition: Home, Self-Care Instructions: Weakness (ED) Additional Instructions: at this time we cannot fully say if there was a stroke or a mass causing your symptoms you need a brain MRI which we offered during admission but you declined. you are free to come back at any time. please call your oncologist with an update tomorrow. Prescriptions: No Action metformin 500 mg Tablet 500 mg PO BID losartan 25 mg Tablet 25 mg PO DAILY docusate sodium 100 mg capsule 1 cap PO BEDTIME PRN (Reason: Constipation) atorvastatin 10 mg tablet 1 tab PO BEDTIME ondansetron 8 mg Tablet,Disintegrating 8 mg PO Q8H Qty: 60 4RF butenafine [Lotrimin Ultra] 1 % Cream 1 appl TOPICAL BID Qty: 45 2RF multivitamin Tablet 1 tab PO QAM naloxone 4 mg/actuation spray,non-aerosol 4 mg intranasal DAILY levothyroxine 100 mcg Capsule 100 mcg PO DAILY Qty: 30 3RF lidocaine 5 % Cream 1 appl TOPICAL QWEEK Qty: 45 3RF Magic Mouthwash Diphen/Lido/Antacid 1:1:1 240 mL Suspension 10 ml PO QID Qty: 240 4RF Rx Instructions: Lidocaine Viscous 2 % 80mL; diphenhydramine 12.5 mg/5 mL 80mL; aluminum-mag hydrox-simeth [id number]/5mL 80mL butenafine [Lotrimin Ultra] 1 % Cream 1 appl TOPICAL BID Qty: 45 5RF Eliquis 5 mg Tablet 5 mg PO BID Qty: 60 3RF Cabometyx 40 mg Tablet 40 mg PO DAILY Qty: 90 3RF famotidine 20 mg tablet 20 mg PO DAILY zolpidem 10 mg tablet 10 mg PO BEDTIME (DME) lancets [TRUEplus Lancets] 33 gauge misc See Rx Instructions Not Applicable TID Qty: 100 Rx Instructions: As directed propranolol 10 mg tablet 10 mg PO BID levothyroxine 25 mcg tablet 12.5 mcg PO QAM Rx Instructions: pt to take 50mcg daily sertraline 100 mg tablet 100 mg PO DAILY Print Language: Other
[2024-09-09 16:44] VITALS: BP 149/81; PULSE 59; RESP 16; TEMP 36.6; O2SAT 97; BMI 32.0
[2024-09-09] MEDS: dexAMETHasone sod phosphate 10 MG/ML VIAL IVPUSH (16:50)
[2024-09-09 17:05] LABS: MANUAL DIFF FLAG NO
[2024-09-09 17:11] LABS: Basophils Percent Auto 0.6 % (0-2); Eosinophils Absolute Auto 0.1 X10*3/uL (0.0-0.4); Eosinophils Percent Auto 2.3 % (0-4); Hematocrit 35.3 % (37.0-47.0); Hemoglobin 12.7 g/dl (12.0-16.0); Imm Gran Abs Auto 0.01 X10*3/uL (0.00-0.03); Imm Gran Pct Auto 0.2 % (0.0-0.4); Lymphocytes Absolute Auto 2.1 X10*3/uL (1.2-4.9); Lymphocytes Percent Auto 39.1 % (20-40); Mean Corpuscular Hemoglobin 30.6 pg (27.0-33.0); Mean Corpuscular Volume 85.1 fL (80.0-98.0); Mean Platelet Volume 9.9 fL (9.4-12.3); Monocytes Absolute Auto 0.3 X10*3/uL (0.1-1.2); Monocytes Percent Auto 6.2 % (2-11); Neutrophils Absolute Auto 2.8 x10*3/uL (2.0-8.3); Neutrophils Percent Auto 51.6 % (45-73); Platelet Count 193 X10*3/uL (160-400); Red Blood Count 4.15 X10*6/uL (4.20-5.50); Red Cell Distribution Width 12.3 % (11.0-16.0); White Blood Count 5.3 X10*3/uL (4.8-10.8)
--- OUTSIDE RECORDS SUMMARY | 2024-09-09 17:13 | XMS_ITS | Encounter Summary ---
Author Organization [employer] Address [address] [place] [id number] Care Team Providers Care Wellness Manager Name Role Phone Khloe Fonseca [facility] Primary Care Provider [phone]- [phone] Kristy Wilder MD Primary Care Pro vider Reason for Visit * Reason Onset Date Comments pt1 10/03/2022 Encounter Details Date Type Department Care Team (Late st Contact Info) Description 10/03/2022 Telephone [facility] [address] [place] [phone] Khloe Fonseca [address] [place] [address] pt1 Social History Tobacco Use Types Packs/Day Years Used Date Smoking Tobacco: Never Smokeless Tobacco: Never Comments Unknown Sex and Gender Information Value Date Recorded Sex Assigned at Female 04/08/2022 10:34 AM EDT Legal Sex Female 10:34 AM EDT Gender Identity Female 04/08/2022 10:34 AM EDT Sexual Orientation Straight 04/08/2022 10 :34 AM EDT COVID-19 Exposure Response Date Recorded In the last 10 days, have yo u been in contact with someone who was confirmed or suspected to have Coronavirus/COVID-19? No / Unsure 10/03/2022 9:28 AM EDT documented as of this encounter Miscellaneous Notes * Telephone Encounter - Marko Michael - 10/03/2022 4:21 PM EDT Tc from pt requesting a pt1 ride Date: oct 07 2022 Time: 2:30 pm address: [address] [place] [address] [address], [place] [address] specialty: # visits: date night caregiver: no Wheelchair: no Date:10/23/22 Time:02 pm address: [facility] specialty: PCP # visits: date night caregiver: no Wheelchair: no Date:11/07/22 Time: 1:30 address: [facility] specialty: PCP # visits: date night caregiver: no Wheelchair:no documented in this encounter Plan of Treatment Upcoming Encounters Date Type Department Care Team (Late st Contact Info) Description 09/28/2024 1:30 PM EDT Office Visit [facility] [address] [place] [address] Kristy Wilder MD [address] [place] [address] 10/18/2024 11:00 AM EDT Telemedicine [facility] [address] [place], [place] [phone] Colette Diop RN [address] [place], [place] [phone] documented as of this encounter Visit Diagnoses Not on filedocumented in this encounter Additional Health Concerns Assessment Noted Time PHQ-9 Depression Total Score: 11 022 1:16 PM EST documented as of this encounter Care Teams Wellness Manager Relationship Specialty Start Date End Date Khloe Fonseca FNP PCP - General Family Medicine 02/05/22 12/25/22 Kristy Wilder MD [address] [place] [id number] PCP - General Internal Medicine 12/26/22 documented as of this encounter
--- OUTSIDE RECORDS SUMMARY | 2024-09-09 17:13 | XMS_ITS | Encounter Summary ---
Author Organization [employer] Address [address] [facility] [address] [place] [address] Care Team Providers Care Warehouse Order Puller Name Role Phone Kristy Wilder MD Primary Care Pro vider Reason for Visit * Reason Comments Med Refill Encounter Details Date Type Department Care Team ([facility] st Contact Info) Description 05/15/[address] [facility] [address] [place], [place] [phone] Evelina Freeman MD [address] [place], [place] [phone] Social History Tobacco Use Types Packs/Day Years Used Date Smoking Tobacco: Never Passive Smoke Exposure: Never Smokeless Tobacco: Never Alcohol Use Standard Drinks/Week Comments Never 0 (1 standard drink = 0.6 oz pur e alcohol) Depression Answer Date Recorded Patient Health Questionnaire-9 Score 16 03/11/2023 Housing Stability Answer Date Recorded What is your housing situation today? I have [place] 03/24/[address] you li ve. Do you have problems with any of the following? None of the above 03/24/2023 Food Insecurity Answer Date Recorded Within the past 12 months, y ou worried that your food would run out before you got money to buy more: Never True 03/24/2023 Within the past 12 months,th e food you bought just didn't last and you didn't have enough money to get more: Never True Transportation Answer Date Recorded In the past 12 months, has l ack of transportation kept you from medical appts, meetings, work or from getting things needed for daily living? No 03/24/2023 Utilities Answer Date Recorded In the past 12 months, has t he electric, gas, oil or water company threatened to shut off services in your home? I am not sure 03/24/2023 Depression Answer Date Recorded Patient Health Questionnaire-2 Score 6 03/11/2023 Comments Unknown Sex and Gender Information Value Date Recorded Sex Assigned at Female 04/08/2022 10:34 AM EDT Legal Sex Female 10:34 AM EDT Gender Identity Female 04/08/2022 10:34 AM EDT Sexual Orientation Straight 04/08/2022 10 :34 AM EDT documented as of this encounter Plan of Treatment Upcoming Encounters Date Type Department Care Team (Late st Contact Info) Description 09/28/2024 1:30 PM EDT Office Visit [facility] [address] [place] [address] Kristy Wilder MD [address] [place] [phone] 10/18/2024 11:00 AM EDT Telemedicine [facility] [address] [place], [place] [phone] Colette Diop, BRICE [address] [place] [address] documented as of this encounter Visit Diagnoses Not on filedocumented in this encounter Additional Health Concerns Assessment Noted Time PHQ-9 Depression Total Score: 16 023 11:20 AM EDT documented as of this encounter Care Teams Warehouse Order Puller Relationship Specialty Start Date End Date Kristy Wilder MD [address] [place], [place] [phone] PCP - General Internal Medicine 12/26/22 documented as of this encounter
--- OUTSIDE RECORDS SUMMARY | 2024-09-09 17:13 | XMS_ITS | Clinical Summary ---
Author Organization [employer] Address [address] [place] [address] Care Team Providers Care Envelope Addresser Name Role Phone Kristy Wilder MD Primary Care Pro vider Allergies Active Allergy Reactions Criticality Noted Date Comments Pnrohyghj-Yn-Bopddlltusjnz Unknown 3 Hydromorphone Rash Low 06/28/2020 Other reaction(s): Nausea / Vomiting Phenylephrine 12/19/2022 Other reaction(s): EDEMA Medications * This document contains information received from the source organization and may not represent a complete record from that organization. acetaminophen (Tylenol 8 Hour) 650 MG ER tablet Take 2 tablets by mouth every 8 (eight) hours. 02/28/20 22 Active Nutritional Supplements (Ensure Plus) liquid Drink supplement twice daily 02/17/20 21 Active Blood Glucose Monitoring Suppl (FreeStyle glucose monitoring) kit 1 each if needed. Active Blood Pressure kit 1 kit. A ctive Mintox Maximum Strength 400-400-40 MG/5ML suspension MIX WITH lidocaine AND benadryl, SHAKE WELL ,rinse AND SPIT OUT 10 ML FOUR TIMES DAILY NEEDED FOR PAIN IN MOUTH 01/11/20 23 Active Cabometyx 40 MG chemo tablet 01/01/20 23 Active M-Dryl 12.5 MG/5ML liquid MIX WITH lidocaine AND maalox, SHAKE WELL, RINSE AND SPIT OUT 10 ML FOUR TIMES DAILY NEEDED PAIN IN MOUTH 01/11/20 23 Active senna (Senokot) 8.6 MG tablet Take 1 tablet by mouth 2 times daily. 01/10/20 23 Active lidocaine (Xylocaine) 2 % solution MIX WITH BENADRYL AND MAALOX, SHAKE WELL RINSE AND SPIT OUT 10 ML FOUR TIMES DAILY NEEDED PAIN IN MOUTH 01/11/20 23 Active polyethylene glycol, PEG, 3350 (MiraLax) 17 GM/SCOOP powder take (17G) by oral route every day mixed with 8 oz. water, juice, coffee or tea 225 g 2 04/23/20 23 Active nystatin (Mycostatin) 920056 UNIT/GM powder Apply topically 2 times daily. USE AFTER ANTIFUNGAL CREAM 120 g 3 11/19/19 24 025 Active naloxone (Narcan) 4 mg/0.1 mL nasal spray Administer 4 mg into affected nostril(s) if needed for opioid reversal. May repeat every 2-3 minutes if needed, alternating nostrils, until medical assistance becomes available. Active ammonium lactate (Lac-Hydrin) 12 % lotion Apply topically if needed (at bedtime). 09/02/19 24 Active Eliquis 5 MG tablet Take 1 tablet by mouth 2 times daily. 01/16/20 24 Active cholestyramine (Questran) 4 g packet Take 1 packet by mouth with breakfast, with lunch, and with evening meal. 12/18/19 24 Active diphenoxylate-atro pine (Lomotil) 2.5-0.025 MG tablet Take 1 tablet by mouth 4 times daily. 11/20/19 24 Active loperamide (Imodium) 2 MG capsule Take 1 capsule by mouth if needed in the morning, at noon, in the evening, and at bedtime. 08/14/19 24 Active ondansetron (Zofran) 4 MG tablet Take 1 tablet by mouth every 8 (eight) hours. 01/18/20 24 Active betamethasone, augmented, (Diprolene) 0.05 % ointmentIndication s:Psoriasis Apply topically 2 times daily. 50 g 11 02/20/20 24 Active FREESTYLE LITE test strip TEST BLOOD SUGAR THREE TIMES DAILY 100 strip 11 03/26/20 24 Active TRUEplus Lancets 33G misc TEST BLOOD SUGAR THREE TIMES DAILY 100 each 11 03/26/20 24 Active levothyroxine (Synthroid, Levoxyl) 112 MCG tabletIndications: Hypothyroidism, unspecified type TAKE 1 TABLET BY MOUTH EVERY DAY BEFORE BREAKFAST 90 tablet 1 03/29/20 24 Active Alcohol Swabs (Alcohol Prep) 70 % padsIndications:Ty pe 2 diabetes mellitus without complications (CMS/HCC) USE DIRECTED THREE TIMES DAILY 100 each 11 04/20/20 24 Active sertraline (Zoloft) 100 MG tablet Take 1.5 tablets (150 mg) by mouth Once per day. take 1.5 tablet (150mg) by oral route every day 45 tablet 1 04/29/20 24 Active zolpidem (Ambien) 10 MG tabletIndications: Primary insomnia TAKE 1 TABLET BY MOUTH AT BEDTIME 28 tablet 05/21/20 24 Active oxyCODONE (Roxicodone) 5 MG immediate release tabletIndications: Back pain, unspecified back location, unspecified back pain laterality, unspecified chronicity TAKE 1 TABLET BY MOUTH EVERY TWELVE HOURS NEEDED FOR SEVERE PAIN 56 tablet 05/24/20 24 Active metFORMIN (Glucophage) 500 MG tabletIndications: Elevated blood sugar TAKE 1 TABLET BY MOUTH EVERY MORNING and TAKE 2 TABLETS BY MOUTH EVERY DAY IN THE EVENING 270 tablet 1 06/08/20 24 Active Multiple Vitamin (Multivitamin) tablet TAKE 1 TABLET BY MOUTH EVERY MORNING 90 tablet 1 06/08/20 24 Active calcipotriene (Dovonex) 0.005 % ointmentIndication s:Psoriasis APPLY TOPICALLY TO THE AFFECTED AREA(S) TWICE DAILY 60 g 3 06/18/19 25 Active Fluocinolone Acetonide Scalp 0.01 % oilIndications:Pso riasis APPLY TOPICALLY TO THE AFFECTED AREA(S) TWICE A WEEK 118.28 mL 3 06/18/19 25 Active atorvastatin (Lipitor) 10 MG tabletIndications: Mixed hyperlipidemia TAKE 1 TABLET BY MOUTH AT BEDTIME 90 tablet 06/17/19 25 Active losartan (Cozaar) 25 MG tabletIndications: Primary hypertension TAKE 1 TABLET BY MOUTH EVERYDAY AT NOON 90 tablet 06/17/19 25 Active famotidine (Pepcid) 20 MG tabletIndications: Gastroesophageal reflux disease without esophagitis TAKE 1 TABLET BY MOUTH TWICE DAILY IN THE MORNING AND AT BEDTIME 180 tablet 06/17/19 25 Active docusate sodium (Colace) 100 MG capsuleIndications :Therapeutic opioid induced constipation TAKE 1 CAPSULE BY MOUTH AT BEDTIME NEEDED 90 capsule 1 07/12/19 25 Active propranolol (Inderal) 10 MG tablet TAKE 1 TABLET BY MOUTH TWICE DAILY IN THE MORNING AND IN THE EVENING 180 tablet 07/13/19 25 Active Active Problems Problem Noted Date Diagnosed Date Otitis externa 12/15/2023 Renal vein thrombosis 06/21/2023 Health care maintenance 03/11/2023 Chronic pain 03/11/2023 Varicose veins of both lower extremities 023 Family history of cancer 03/11/2023 Malignant neoplasm of lower lobe of left lung Overview (02/16/2023): Lung, left lower lobe, needle core biopsy: ??Metastatic clear cell renal cell carcinoma in ? keeping with patient's known renal primary. Care managed by Oncology Has started PO and intravenous chemo, intravenous every 2 weeks and PO daily. Next appt 01/23/23 Assessment & Plan (02/16/2023 8:00 PM EDT): Encouraged pt to bring [employer] application for [employer] to Forms team. Pt has difficulty breathing r/t lung cancer diagnosis Pt will contact [employer] about increasing hours F/u PRN Therapeutic opioid induced constipation 05/14/20 Anxiety 04/25/2022 Depressive disorder 04/25/2022 Essential hypertension 04/25/2022 History of nephrectomy 04/25/2022 Migraine without aura 04/25/2022 Psoriasis 04/25/2022 Assessment & Plan (02/21/2023 10:08 AM EDT): ?? Encouraged patient to discontinue Methotrexate and Folic acid. ?? Initiate Betamethasone Ointment BID as needed. ?? RTC in 6mo, as needed Type 2 diabetes mellitus 02/28/2020 Overview (02/16/2023): Education provided re: therapeutic lifestyle changes. Encouraged patient to exercise/walk as much as possible, avoid soda/sugary beverages, drink water, eat high fiber/whole grains, fresh or frozen fruits and veg, try to avoid greasy and/or sugary foods. ?? Will continue and increase Trulicity dose to 3mg, pt agrees even though she has a phobia of needles. Goal glycemic control and weight loss. Will stop Jardiance 10mg 1 tablet daily since we are increasing Trulicity dose, A1c is at goal and pt is experiencing significant polyuria on medication. Educated pt that polyuria is normal with medication ?? Continue Gabapentin for neuropathy 300mg 1 tablet at bedtime; Metformin 500mg 1 tablet AM, 2 tablet PM ? A1c: 7.0 today 10/23/22. Was 7.1 04/11/22 (Target </= 7.0) Was 6.1 on 11/23/21. Educated pt on increase in A1c and importance of checking blood glucose and taking diabetes medications Glucose: 153 on 10/23/22 Microalbumin/Cr:Alb: WNL 11/23/21 Lipids: Elevated 11/23/21. Check again 08/27/22 Eye exam: 2021 Dental: Up to date 06/2022 PNA (PPSV, then PCV 13): 04/09/2019 TDap/Td: 04/09/2019 Foot exam/peripheral pulses: WNL 08/27/22 SMILEY/ARB: Losartan 25mg 1 tablet daily Statin: Atorvastatin 10mg 1 tablet daily Assessment & Plan (02/16/2023 7:56 PM EDT): F/u 3 months with new PCP Renal cell carcinoma of right kidney 07/21/2019 Overview (01/19/2023): diagnosed back in 2018 status post nephrectomy it was grade 3. status post nephrectomy, at [facility] in January. 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 Marilyn grade 3. Stage IIIA, with renal vein extention. Stutent started on June 17. Urology appt 12/18/22: f/u appt H/O: hysterectomy 02/10/2018 Resolved Problems Problem Noted Date Diagnosed Date Resolved Date Overweight 11/01/2023 01/07/2024 Skin rash 08/02/2023 11/01/2023 Surgical wound, non healing 08/02/2023 11/01/2023 Obesity 03/11/2023 11/01/2023 Clear cell carcinoma of right kidney 01/14/2023 03/11/2023 Renal cell carcinoma 01/14/2023 023 Pulmonary nodules 12/10/2022 03/11/2023 Overview (12/23/2022): Pulm appt 12/09/22: The nodules are almost 8 mm in size based on my measurements. Plan CT-guided biopsy 12/19/22: Lung, left lower lobe, needle core biopsy: Metastatic clear cell renal cell carcinoma in keeping with patient's known renal primary. Lumbar back pain 04/25/2022 03/11/2023 Gross hematuria 12/18/2020 03/11/2023 Clear cell carcinoma of kidney 10/23/2018 12/10/2022 Renal mass 08/13/2018 03/11/2023 Encounters Date Type Department Care Team Description 09/09/2024 Orders Only GENERIC EXTERNAL DATA DEPARTMENT Provider, Generic External Data 09/09/2024 Telephone [facility] [address] [place] [address] Kristy Wilder MD NTTS 09/04/2024 Telephone [facility] [address] [place] [address] Cris Pickett FNP Fishing Vessel Captain 08/20/2024 Population Health Risk Score [facility] [address] [place] [phone] Provider, Population Health Generic 08/12/2024 Orders Only [facility] External Provider, [facility] 08/03/2024 Patient Outreach [facility] [address] [place] [address] Kristy Wilder MD Care Coordination (CH[facility] outreach for SDOH PT-1 and food needs-referral completed /) 08/03/2024 Telephone [facility] [address] [place] [address] Kristy Wilder MD PT-1 07/22/2024 1:30 PM EST Clinical Support [facility] [address] [place] [address] Colette Diop, BRICE Back pain, unspecified back location, unspecified back pain laterality, unspecified chronicity 07/22/2024 Refill [facility] [address] [place] [address] Colette Diop RN 07/22/2024 Travel 07/15/2024 Telephone [facility] [address] [place] [address] Candace Calderón MA september07/13/2024 Refill [facility] [address] [place] [address] Kristy Wilder MD 07/12/2024 Refill [facility] [address] [place] [address] Kristy Wilder MD Therapeutic opioid induced constipation 06/17/2024 Refill [facility] [address] [place], [place] [phone] Kristy Wilder MD Mixed hyperlipidemia; Primary hypertension; Gastroesophageal reflux disease without esophagitis 06/17/2024 Refill [facility] [address] [place], [place] [phone] Evelina Freeman MD Psoriasis from Last 3 Months Immunizations Name Administration Dates Next Due Hep B, adult 03/02/2024,08/29/2023,08/01/2023 Influenza injectable quadriv alent preservative free 03/11/2023 Influenza, seasonal, injecta ble, preservative free 05/14/2022 Influenza, trivalent, adjuvanted 05/27/2021 Moderna Covid-19 Vaccine 12+ 09/22/2020,08/26/19 21 Pfizer Covid-19 Vaccine 12+ 05/27/2021 Pfizer Covid-19 Vaccine 12+ Bivalent 05/14/2022 Pneumococcal Conjugate PCV 13 04/09/2019 Pneumococcal Conjugate PCV 20 03/11/2023 Tdap 04/09/2019 Zoster, Recombinant 12/31/2021,09/06/2021 Family History Medical History Relation Name Comments Unspecified heart disease Brother gastric ca Father's Brother Throat cancer Maternal Grandfather Diabetes Mother HTN Mother Liver cancer Mother's Sister Relation Name Status Comments Brother Father's Brother Maternal Grandfather Mother Mother's Sister Social History Tobacco Use Types Packs/Day Years Used Date Smoking Tobacco: Never Passive Smoke Exposure: Never Smokeless Tobacco: Never Tobacco Cessation:Counseling Given: Not Answered Alcohol Use Standard Drinks/Week Comments Never 0 (1 standard drink = 0.6 oz pur e alcohol) Depression Answer Date Recorded Patient Health Questionnaire-9 Score 4 10/31/2023 Patient Health Questionnaire-9 Score 4 10/31/2023 Last PHQ-9: Questionnaire Data Not on file 0 10/31/2023 Housing Stability Answer Date Recorded What is your housing situation today? I have kenton [place] 06/19/[address] you li ve. Do you have problems with any of the following? None of the above 06/19/2023 Food Insecurity Answer Date Recorded Within the past 12 months, y ou worried that your food would run out before you got money to buy more: Never True 06/19/2023 Within the past 12 months,th e food you bought just didn't last and you didn't have enough money to get more: Never True 04/2024 Transportation Answer Date Recorded In the past 12 months, has l ack of transportation kept you from medical appts, meetings, work or from getting things needed for daily living? No 06/19/2023 Utilities Answer Date Recorded In the past 12 months, has t he electric, gas, oil or water company threatened to shut off services in your home? No 06/19/2023 Depression Answer Date Recorded Patient Health Questionnaire-2 Score 0 10/31/2023 Comments Unknown Sex and Gender Information Value Date Recorded Sex Assigned at Female 04/08/2022 10:34 AM EDT Legal Sex Female 10:34 AM EDT Gender Identity Female 04/08/2022 10:34 AM EDT Sexual Orientation Straight 04/08/2022 10 :34 AM EDT Last Filed Vital Signs Vital Sign Reading Time Taken Comments Blood Pressure 145/85 03/02/2024 2:31 PM EDT Pulse 68 03/02/2024 2:31 PM EDT Temperature 36.4 ??C (97.5 ??F) 03/02/2024 2:31 PM ED T Respiratory Rate 20 03/02/2024 2:31 PM EDT Oxygen Saturation 98% 03/02/2024 2:31 PM EDT Inhaled Oxygen Concentration - - Weight 64.9 kg (143 lb) 03/02/2024 2:31 PM EDT Height 167.6 cm (5' 6 ) 03/02/2024 2:31 PM EDT Body Mass Index 23.08 03/02/2024 2:31 PM EDT Plan of Treatment Upcoming Encounters Date Type Department Care Team (Late st Contact Info) Description 09/28/2024 1:30 PM EDT Office Visit [facility] [address] [place] [address] Kristy Wilder MD [address] [place] [address] 10/18/2024 11:00 AM EDT Telemedicine [facility] [address] [place] [address] Colette Diop, BRICE [address] [place] [address] Health Maintenance Due Date Last Done Comments CT Colonography 1967 FIT DNA/Cologuard 1967 FIT 1967 FOBT 1967 Sigmoidoscopy 1967 Alcohol/Substance Use Screening 1979 HPV/Cotest 1997 Diabetes: Foot Exam 08/28/2023 08/27/2022, Cervical Cancer Screening 11/02/2023 Pap Smear 11/02/2023 11/01/2020 COVID-19 Vaccine ( season) 2024 05/14/2022, 05/27/2021, 09/22/2020, Additional history exists Influenza Vaccine (#1) 2024 , 05/14/2022, 05/27/2021 SDOH Screening 06/19/2024 06/19/2023 Diabetes: Hemoglobin A1C 07/08/2024 024, 12/19/2023, 07/23/2023, Additional history exists Diabetes: Urine Protein Screening 07/23/2024 07/23/2023, 11/23/2021 Depression Screening 10/30/2024 10/31/2023, 10/31/19 24 Lipid Panel 12/18/2024 12/19/2023, 07/10, 09/06/2022, Additional history exists Tobacco Screening 03/29/2025 03/29/2024 Mammogram 12/04/2025 12/05/2023, 11/08, 11/01/2021, Additional history exists Eye Exam 03/17/2026 03/17/2024, 02/2024, 03/17/2024, Additional history exists Colonoscopy 11/23/2028 11/23/2018 Colorectal Cancer Screening 11/23/2028 DTaP/Tdap/Td Vaccines (2 - Td or Tdap) 04/09/2029 04/09/2019 RSV Patients and Patients Aged 60 years or older (1 - 1-dose 75+ series) 2042 Zoster Vaccines Completed 12/31/2021, 09/06/2021 Pneumococcal Vaccine: 50+ Years Completed 03/11/2023, 04/09/2019 HIV Screening Completed 07/23/2023, 11/23/2021 Hepatitis C Screening Completed 07/23/2023, 022 Hepatitis B Vaccines Completed 03/02/2024, 08/29/2023, 08/01/2023 HIB Vaccines Aged Out No longer eligi ble based on patient's age to complete this topic HPV Vaccines Aged Out No longer eligi ble based on patient's age to complete this topic Hepatitis A Vaccines Aged Out No long er eligible based on patient's age to complete this topic IPV Vaccines Aged Out No longer eligi ble based on patient's age to complete this topic Meningococcal Vaccine Aged Out No dayron preet eligible based on patient's age to complete this topic RSV under 20 months Aged Out No longe r eligible based on patient's age to complete this topic Rotavirus Vaccines Aged Out No longer eligible based on patient's age to complete this topic Procedures Procedure Name Priority Date/Time Associated Diagnosis Comments CBC WITH AUTO DIFFERENTIAL Routine 09/09/2024 4:[address] ABDOMEN PELVIS W CONTRAST Routine 08/13/2024 9:[address] CHEST W CONTRAST Routine 08/13/2024 8 :57 AM EST POCT CREATININE GFR Routine 08/12/2024 8 :45 AM EST POCT KAJAL-14 URINE DRUG SCREEN Routine 07/22/2024 12:01 PM EST Back pain, unspecified back location, unspecified back pain laterality, unspecified chronicity POCT GLYCATED HEMOGLOBIN, TOTAL Routine 01/06/2024 2:56 PM EDT Type 2 diabetes mellitus with other specified complication, without long-term current use of insulin (CMS/HCC) LIPID PANEL, STANDARD Routine 12/19/2023 8:49 AM EDT Type 2 diabetes mellitus with other specified complication, without long-term current use of insulin (CMS/HCC) BI MAMMOGRAM SCREENING TOMOSYNTHESIS BILATERAL Routine 12/05/2023 12:45 PM EDT ALBUMIN, RANDOM URINE W/CREATININE Routine 07/23/2023 10:06 AM EST HEPATITIS C AB W/REFL TO HCV RNA, QN, PCR Routine 07/23/2023 10:05 AM EST Health care maintenance HIV 1/2 ANTIGEN/ANTIBODY, FOURTH GENERATION W/RFL Routine 07/23/2023 10:05 AM EST Health care maintenance HM PAP/HPV Routine 11/01/2020 HM COLONOSCOPY Routine 11/23/2018 from Last 3 Months or Most Recently Relevant to Health Maintenance Results * (ABNORMAL) CBC auto differential (09/09/2024 4:57 PM EDT) White Blood Count 5.3 4.8 - 10.8 X10*3/uL [facility] Red Blood Count 4.15(L) 4.20 - 5.50 X10*6/uL [facility] Hemoglobin 12.7 12.0 - 16.0 g/dl [facility] Hematocrit 35.3(L) 37.0 - 47.0 % [facility] Mean Corpuscular Volume 85.1 80.0 - 98.0 fL [facility] Mean Corpuscular Hemoglobin 30.6 27.0 - 33.0 pg [facility] Mean Corpuscular HGB Conc 36.0(H) 31.0 - 35.0 g/dl [facility] Red Cell Distribution Width 12.3 11.0 - 16.0 % [facility] Platelet Count 193 160 - 400 X10*3/uL [facility] Mean Platelet Volume 9.9 9.4 - 12.3 fL [facility] Neutrophils Percent Auto 51.6 45 - 73 % [facility] Imm Gran Pct Auto 0.2 0.0 - 0.4 % [facility] Lymphocytes Percent Auto 39.1 20 - 40 % [facility] Monocytes Percent Auto 6.2 2 - 11 % [facility] Eosinophils Percent Auto 2.3 0 - 4 % [facility] Basophils Percent Auto 0.6 0 - 2 % [facility] NRBC Pct Auto 0.0 0.0 - 0.2 /100WBC [facility] Neutrophils Absolute Auto 2.8 2.0 - 8.3 x10*3/uL [facility] Imm Gran Abs Auto 0.01 0.00 - 0.03 X10*3/uL [facility] Lymphocytes Absolute Auto 2.1 1.2 - 4.9 X10*3/uL [facility] Monocytes Absolute Auto 0.3 0.1 - 1.2 X10*3/uL [facility] Eosinophils Absolute Auto 0.1 0.0 - 0.4 X10*3/uL [facility] Basophils Absolute Auto 0.0 0.0 - 0.2 X10*3/uL [facility] NRBC Abs Auto 0.000 0.0 - 0.012 X10*3/uL [facility] 09/09/2024 4:57 PM EDT 09/09/2024 5:03 PM EDT us Generic External Data Provider LAB BLOOD ORDERAB LES Final Result [facility] [address] [place] [phone] * CT Abdomen Pelvis w/ Contrast (08/13/2024 9:03 AM EST) Anatomical Region Laterality Modality Body, Pelvis, Abdomen Computed T omography 08/13/2024 9:03 AM EST Narrative 08/13/2024 9:04 AM EST ? [facility] ?[address] ?[place] [address] ? CT Scan Report ? Signed ? Patient: Elis,Krys ?MR# ?? : [id number] ? : 1965 ?Acct:[id number] ? Age/Sex: 59 / F ?ADM Date: 08/12/24 ? Loc: HO.CT ? Attending Dr: Justina Erickson MD ? Ordering Physician: Justina Erickson MD ?? Date of Service: 08/12/24 ?? Procedure(s): CT abdomen pelvis w IV con ?? Accession Number(s): [id number] ? cc: Justina Erickson MD; Kristy Wilder MD ? Report Number: ?? [id number]: Total DLP = ??927.64 mGy-cm ? CLINICAL HISTORY: Follow-up on renal cell carcinoma ? CT abdomen and pelvis with contrast ? Comparison: 03/10/2024 02:44 PM EDT: CTSR: CT ABDOMEN PELVIS W IV CON ? Findings: ?? Findings above the diaphragm are discussed on the concurrent CT chest ?? report. ? Liver, gallbladder and biliary tree, spleen, pancreas and left kidney are ?? unremarkable. No left adrenal nodules. The right kidney and adrenal gland ?? appears surgically absent. ?? No suspicious findings in the right nephrectomy bed. ? No bowel obstruction, pneumoperitoneum, or pneumatosis. ? Pelvic contents unremarkable. Normal appendix. Status post hysterectomy. ?? No adnexal masses. No ovarian lesions appreciated. ?? No pathologically enlarged lymph nodes within the abdomen or pelvis. No ?? vascular dilation or fluid collections. ?? Small fat containing infraumbilical hernia. ?? The bones are intact. ? IMPRESSION: ?? No findings of local recurrence or metastatic disease below the diaphragm. ? This document has been electronically signed by: Maria Esther Bhardwaj MD on ?? 08/13/2024 09:03:14 ? Dictated By: ?Maria Esther Bhardwaj MD ? Signed By: ?<Electronically signed by Maria Esther Bhardwaj MD in OV> ?08/13/24 0904 ? DD/ 0903 ? TD/TT: 08/13/24 0903 ? Material Dispatcher: ? Procedure Note Thad, Image - 08/13/[address] [address] [address] Scan Report Signed Patient: Princess Gillis# : [id number] : 1965Acct:[id number] Age/Sex: 59 / FADM Date: 08/12/24 Loc: HO.CT Attending Dr: Justina Erickson MD Ordering Physician: Justina Erickson MD Date of Service: 08/12/24 Procedure(s): CT abdomen pelvis w IV con Accession Number(s): [id number] cc: Justina Erickson MD; Kristy Wilder MD Report Number: [id number]: Total DLP = 927.64 mGy-cm CLINICAL HISTORY: Follow-up on renal cell carcinoma CT abdomen and pelvis with contrast Comparison: 03/10/2024 02:44 PM EDT: CTSR: CT ABDOMEN PELVIS W IV CON Findings: Findings above the diaphragm are discussed on the concurrent CT chest report. Liver, gallbladder and biliary tree, spleen, pancreas and left kidney are unremarkable. No left adrenal nodules. The right kidney and adrenal gland appears surgically absent. No suspicious findings in the right nephrectomy bed. No bowel obstruction, pneumoperitoneum, or pneumatosis. Pelvic contents unremarkable. Normal appendix. Status post hysterectomy. No adnexal masses. No ovarian lesions appreciated. No pathologically enlarged lymph nodes within the abdomen or pelvis. No vascular dilation or fluid collections. Small fat containing infraumbilical hernia. The bones are intact. IMPRESSION: No findings of local recurrence or metastatic disease below the diaphragm. This document has been electronically signed by: Maria Esther Bhardwaj MD on 08/13/2024 09:03:14 Dictated By: Maria Esther Bhardwaj MD Signed By: <Electronically signed by Maria Esther Bhardwaj MD in OV> 08/13/24903 DD/ 2 TD/TT: 08/13/24902 Material Dispatcher: [facility] External Provider IMG CT PROCEDURES Final Result * CT Chest w/ Contrast (08/13/2024 8:57 AM EST) Anatomical Region Laterality Modality Body, Chest Computed Tomogra phy 08/13/2024 8:57 AM EST Narrative 08/13/2024 8:59 AM EST ? [facility] ?[address] ?[place] [address] ? CT Scan Report ? Signed ? Patient: Elis,Krys ?MR# ?? : [id number] ? : 1965 ?Acct:[id number] ? Age/Sex: 59 / F ?ADM Date: 08/12/24 ? Loc: HO.CT ? Attending Dr: Justina Erickson MD ? Ordering Physician: Justina Erickson MD ?? Date of Service: 08/12/24 ?? Procedure(s): CT chest w IV con ?? Accession Number(s): [id number] ? cc: Justina Erickson MD; Kristy Wilder MD ? Report Number: ?? [id number]: Total DLP = ?0.00 mGy-cm ? CLINICAL HISTORY: Follow-up on pulmonary nodules. ? CT chest with contrast ? Comparison: CT/SR - CT CHEST W IV CON - 03/10/24 14:44 EDT ? Findings: ?? The heart is normal size. Left chest port in good position. ?? The visualized thyroid and mediastinum are unremarkable. No pathologically ?? enlarged hilar or mediastinal lymph nodes. ?? No chest wall lesions or axillary adenopathy. ? Trachea and central bronchi are patent. 4 mm pulmonary nodule in the right ?? lower lobe image 108 series 6 previously measured 2 mm. Left lower lobe ?? nodule on image 102 measures up to 8 mm previously 4 mm. A peripheral ?? superior segment left lower lobe nodule on image 72 measures 3 mm, ?? previously 4 mm. Punctate superior segment right lower lobe nodule on ?? image 78 is stable. No new nodules identified. ? The abdominal structures will be discussed on the same day CT abdomen ?? pelvis report. ?? The bones are intact. ? IMPRESSION: ?? 1. Enlarging pulmonary nodules highly concerning for metastatic disease. ?? The largest nodule within the left lower lobe measures up to 8 mm on the ?? current study, previously 4 mm. ? This document has been electronically signed by: Maria Esther Bhardwaj MD on ?? 08/13/2024 08:57:45 ? Dictated By: ?Maria Esther Bhardwaj MD ? Signed By: ?<Electronically signed by Maria Esther Bhardwaj MD in OV> ?08/13/24 08 ? DD/ 08 ? TD/TT: 08/13/24 0857 ? Material Dispatcher: ? Procedure Note Donestherter, Image - 08/13/[address] [address] [address] Scan Report Signed Patient: Krys GillisMR# : [id number] : 1965Acct:[id number] Age/Sex: 59 / FADM Date: 08/12/24 Loc: HO.CT Attending Dr: Justina Erickson MD Ordering Physician: Justina Erickson MD Date of Service: 08/12/24 Procedure(s): CT chest w IV con Accession Number(s): [id number] cc: Justina Erickson MD; Kristy Wilder MD Report Number: [id number]: Total DLP = 0.00 mGy-cm CLINICAL HISTORY: Follow-up on pulmonary nodules. CT chest with contrast Comparison: CT/SR - CT CHEST W IV CON - 03/10/24 14:44 EDT Findings: The heart is normal size. Left chest port in good position. The visualized thyroid and mediastinum are unremarkable. No pathologically enlarged hilar or mediastinal lymph nodes. No chest wall lesions or axillary adenopathy. Trachea and central bronchi are patent. 4 mm pulmonary nodule in the right lower lobe image 108 series 6 previously measured 2 mm. Left lower lobe nodule on image 102 measures up to 8 mm previously 4 mm. A peripheral superior segment left lower lobe nodule on image 72 measures 3 mm, previously 4 mm. Punctate superior segment right lower lobe nodule on image 78 is stable. No new nodules identified. The abdominal structures will be discussed on the same day CT abdomen pelvis report. The bones are intact. IMPRESSION: 1. Enlarging pulmonary nodules highly concerning for metastatic disease. The largest nodule within the left lower lobe measures up to 8 mm on the current study, previously 4 mm. This document has been electronically signed by: Maria Esther Bhardwaj MD on 08/13/2024 08:57:45 Dictated By: Maria Esther Bhardwaj MD Signed By: <Electronically signed by Maria Esther Bhardwaj MD in OV> 08/13/24 0858 DD/ TD/TT: 08/13/24856 Material Dispatcher: [facility] External Provider IMG CT PROCEDURES Final Result * POCT Creatinine GFR (08/12/2024 8:45 AM EST) POCT Creatinine 1.1 0.5 - 1.4 mg/dL [facility] GFR POC 55 [facility] Comment:Chronic Kidney Disea se: Estimated GFR < 60 mL/min/1.37w5Ygxyym Kidney Disease: Estimated GFR < 15 mL/min/1.73m2 08/12/2024 8:45 AM EST 08/13/2024 9:59 AM EST Narrative [facility] - 08/13/2024 10:01 AM EST [id number] Generic External Data Provider LAB POINT OF CARE TEST DOCKED DEVICE ORDERABLES Final Result [facility] [address] [place] [phone] * POCT KAJAL-14 Urine Drug Screen (07/22/2024 12:01 PM EST) Urine Urine specimen obtained by clean catch procedure / Unknown 07/22/2024 12:01 PM EST Narrative Colette Diop RN - 07/22/2024 12:01 PM EST negative for THC, MOP, OXY, JACKIE, MET, AMP, BZO, BAR, MTD, BUPG, TCA, MDMA, PCP, PPX. Lot# [id number] Exp: 05-15-25 Kristy Mosley MD POINT OF CARE NERY T ENTER/EDIT ORDERABLES Final Result * POCT HGB A1C (01/06/2024 2:56 PM EDT) Hemoglobin A1C 5.9 4.0 - 6.0 % QC Media Lot # [id number] Lot# Expiration Date [id number] Blood 01/06/2024 2:56 PM EDT Kristy Mosley MD POINT OF CARE NERY T ENTER/EDIT ORDERABLES Final Result * (ABNORMAL) Lipid Panel, Standard (12/19/2023 8:49 AM EDT) Triglycerides 68 <150 mg/dL [facility] Comment:Desirable Triglyceri de: less than 150 mg/dLBorderline High Triglyceride 150-199 mg/dLHigh Triglyceride: 200-499 mg/dLVery High Triglyceride: greater than or equal to 5OO mg/dL Cholesterol 135 <200 mg/dL [facility] Comment:Desirable Cholestero l: less than 200 mg/dLBorderline High Cholesterol: 200-239 mg/dLHigh Cholesterol: greater than 239 mg/dL LDL Cholesterol Calculated 92 <100 mg/dL [facility] Comment:Desirable LDL: less than 100 mg/dLNear Optimal/Above Optimal LDL: 110- 129 mg/dLBorderline High LDL: 130-159 mg/dLHigh LDL: 160-189 mg/dLVery High LDL: greater than or equal to 190 mg/dL HDL Cholesterol 30(L) >40 mg/dL [facility] Comment:Desirable HDL: great er than 40 mg/dL Note: This HDL assay may give artificially low results in patients with liver disease. Blood Venous blood specimen / Unknown 12/19/2023 8:49 AM EDT 12/19/2023 11:06 AM EDT us Kristy Mosley MD LAB BLOOD ORDERAB LES Final Result [facility] [address] [place] [phone] * BI Mammogram Screening Tomosynthesis Bilateral (12/05/2023 12:45 PM EDT) Anatomical Region Laterality Modality Breast Bilateral Mammography 12/05/2023 12:4 5 PM EDT Narrative 12/18/2023 1:26 PM EDT ? [facility] ? [address] ?[place] [address] ? Mammography Report ? Signed ? Patient: Elis,Krys ?MR# ?? : [id number] ? : 1965 ?Acct:[id number] ? Age/Sex: 58 / F ?ADM Date: 12/05/23 ? Loc: HO.MAMMO ? Attending Dr: Kristy Mosley MD ? Ordering Physician: Kristy Wilder MD ?Re ?? sults: 2Benign Findings ? Date of Service: 12/05/23 ?Follow Up: 1 Year From Orig ?? inal Mammogram ? Procedure(s): MM tomosynthesis screening BI ?? Accession Number(s): [id number] ? cc: Kristy Wilder MD ? EXAMINATION: ?? MM SCREENING DIGITAL BREAST TOMOSYNTHESIS, BILATERAL ? CLINICAL INFORMATION: ? Screening. Asymptomatic. ? COMPARISON: ?? Mammography: This study is compared with prior exams dating back to ?? 2019. ? TECHNIQUE: ?? Digital breast tomosynthesis is performed in both the craniocaudal and ?? mediolateral oblique views along with computer-aided detection (CAD). ?? Synthesized 2D images are generated from the tomosynthesis. ? FINDINGS: ?? There are scattered areas of fibroglandular density (ACR BI-RADS breast ?? composition Category b). ? There are no significant masses, abnormal calcifications, or other ?? abnormalities. ? Scattered, benign calcifications are present in each breast. ? MM/MM tomosynthesis screening BI ?? IMPRESSION: ?? No mammographic evidence of malignancy. ? ASSESSMENT: ? BI-RADS BI-RADS 2 - Benign Findings ? RECOMMENDATION: ?? Routine annual mammography screening. ? 1 year F/U ? This examination should not preclude the clinical evaluation of a ?? suspicious palpable abnormality. ? This patient's information was entered into a reminder system with a ?? target due date for their next mammogram. ? Dictated By: ?Chiquita Dick MD ? Signed By: ?<Electronically signed by Chiquita Dick MD in OV> ? 12/18/23 1323 ? DD/ 1245 ? TD/TT: ? Material Dispatcher: ? Procedure Note Thad, Image - 12/18/2023 [facility] [address] [place] [address] Mammography Report Signed Patient: Krys Gillis# : [id number] : 1965Acct:[id number] Age/Sex: 58 / FADM Date: 12/05/23 Loc: HO.MAMMO Attending Dr: Kristy Mosley MD Ordering Physician: Kristy Wilder sults: 2Benign Findings Date of Service: 12/05/23Follow Up: 1 Year From Orig inal Mammogram Procedure(s): MM tomosynthesis screening BI Accession Number(s): [id number] cc: Kristy Wilder MD EXAMINATION: MM SCREENING DIGITAL BREAST TOMOSYNTHESIS, BILATERAL CLINICAL INFORMATION: Screening. Asymptomatic. COMPARISON: Mammography: This study is compared with prior exams dating back to 2019. TECHNIQUE: Digital breast tomosynthesis is performed in both the craniocaudal and mediolateral oblique views along with computer-aided detection (CAD). Synthesized 2D images are generated from the tomosynthesis. FINDINGS: There are scattered areas of fibroglandular density (ACR BI-RADS breast composition Category b). There are no significant masses, abnormal calcifications, or other abnormalities. Scattered, benign calcifications are present in each breast. MM/MM tomosynthesis screening BI IMPRESSION: No mammographic evidence of malignancy. ASSESSMENT: BI-RADS BI-RADS 2 - Benign Findings RECOMMENDATION: Routine annual mammography screening. 1 year F/U This examination should not preclude the clinical evaluation of a suspicious palpable abnormality. This patient's information was entered into a reminder system with a target due date for their next mammogram. Dictated By: Chiquita Dick MD Signed By: <Electronically signed by Chiquita Dick MD in OV> 12/18/23 1323 DD/ 1245 TD/TT: Material Dispatcher: Kristy Mosley MD IMG BI PROCEDURES Final Result * Albumin, Random Urine W/Creatinine (07/23/2023 10:06 AM EST) Creatinine, Urine 213.14 mg/dL [facility] Microalbumin Urine 16.0 mg/L [facility] Microalbum Creatinine Ratio Ur 7.5 <30 ug/mg cr [facility] Comment:Albumin/Creatinine R atio Reference Ranges: Normal: < 30 ug/mg creatinine Microalbuminuria: 30 - 300 ug/mg creatinineClinical Albuminuria: > 300 ug/mg creatinine 07/23/2023 10:0 6 AM EST 07/23/2023 11:20 AM EST us Kristy Mosley MD LAB URINE ORDERAB LES Final Result [facility] [address] [place] [phone] * Hepatitis C Antibody with Reflex to HCV, RNA, Quantitative, Real-Time PCR (07/23/2023 10:05 AM EST) Hepatitis C Antibody Nonreactive Nonreactive [facility] Comment:Antibodies to HCV no t detected; does not exclude early acuteHCV infection. Blood Venous blood specimen / Unknown 07/23/2023 10:05 AM EST 07/23/2023 11:26 AM EST Kristy Mosley MD LAB BLOOD ORDERAB LES Final Result Performing Organization Address City/[facility]/ZIP Co de Phone Number [facility] [address] [place] [phone] * HIV-1/2 Antigen and Antibodies, Fourth Generation, with Reflexes (07/23/2023 10:05 AM EST) HIV AB/AG Nonreactive Nonreactive [facility] Comment:HIV-1 p24 Ag and/or HIV-1/HIV-2 Ab not detected.A test result that is nonreactive does not exclude thepossibility of exposure to or infection with HIV-1 and/orHIV-2. Nonreactive results in this assay for individualswith prior exposure to HIV-1 and/or HIV-2 may be due toantigen and antibody levels that are below the limit ofdetection of this assay.The [employer] HIV Ag/Ab Combo assay result andsupplemental assay results should be interpreted inconjunction with the patient's clinical presentation,history and other laboratory results. If the results areinconsistent with clinical evidence, additional testing issuggested to confirm the result. Blood Venous blood specimen / Unknown 07/23/2023 10:05 AM EST 07/23/2023 11:26 AM EST us Kristy Mosley MD LAB BLOOD ORDERAB LES Final Result Performing Organization Address City/[facility]/ZIP Co de Phone Number [facility] [address] [place] [phone] * Pap Smear (11/01/2020) Pap smear Performed us Luz Maria Provider HEALTH MAINTENANCE Final Result * Colonoscopy (11/23/2018) Colonoscopy Performed us Historical Provider HEALTH MAINTENANCE Edited Result - Final from Last 3 Months or Most Recently Relevant to Health Maintenance Insurance [address] [address] [address] C3 Care Teams Envelope Addresser Relationship Specialty Start Date End Date Kritsy Wilder MD [address] [place] [phone] PCP - General Internal Medicine 12/26/22
--- OUTSIDE RECORDS SUMMARY | 2024-09-09 17:13 | XMS_ITS | Encounter Summary ---
Author Organization [employer] Address [address] [facility] [address] [place] [address] Care Team Providers Care Vb Net Developer Name Role Phone Kristy Wilder MD Primary Care Pro vider Reason for Visit * Reason Onset Date Comments Reschedule 07/07/2023 Encounter Details Date Type Department Care Team ([facility] st Contact Info) Description 07/07/2023 Telephone [facility] MEDICINE [address] [place], [place] [phone] Kristy Wilder MD [address] [place], [place] [phone] Reschedule Social History Tobacco Use Types Packs/Day Years Used Date Smoking Tobacco: Never Passive Smoke Exposure: Never Smokeless Tobacco: Never Alcohol Use Standard Drinks/Week Comments Never 0 (1 standard drink = 0.6 oz pur e alcohol) Depression Answer Date Recorded Patient Health Questionnaire-9 Score 16 03/11/2023 Housing Stability Answer Date Recorded What is your housing situation today? I have kenton sing 06/19/[address] you li [...] encounter Miscellaneous Notes * Telephone Encounter - Mariluz Patrick - 07/07/2023 11:38 AM EST Tc from pt requesting to r/s 07/25 [employer] appointment due to pt having 2 appointments scheduled same day and will be doing chemo. Please contact pt at [phone] (Georgian) documented in this encounter Plan of Treatment Upcoming Encounters Date Type Department Care Team (Late st Contact Info) Description 09/28/2024 1:30 PM EDT Office Visit [facility] MEDICINE [address] [place] [phone] Kristy Wilder MD [address] [place] [address] 10/18/2024 11:00 AM EDT Telemedicine [facility] PEDS [address] [place] [address] Colette Diop, RN [address] [place] [address] documented as of this encounter Visit Diagnoses Not on filedocumented in this encounter Additional Health Concerns Assessment Noted Time PHQ-9 Depression Total Score: 16 023 11:20 AM EDT documented as of this encounter Care Teams Vb Net Developer Relationship Specialty Start Date End Date Kristy Wilder MD [address] [place] [phone] PCP - General Internal Medicine 12/26/22 documented as of this encounter
--- OUTSIDE RECORDS SUMMARY | 2024-09-09 17:13 | XMS_ITS | Encounter Summary ---
Author Organization [employer] Address [address] [place] [phone] Care Team Providers Care Proposal Manager Writer Name Role Phone Khloe Fonseca [facility] Primary Care Provider [phone] Kristy Wilder MD Primary Care Pro vider Reason for Visit * Reason Onset Date Comments pt1 10/16/2022 Encounter Details Date Type Department Care Team (Late st Contact Info) Description 10/16/2022 Telephone [facility] MEDICINE [address] [place] [phone] Khloe Fonseca [address] Dept [place] [address] pt1 Social History Tobacco Use Types Packs/Day [...] encounter Miscellaneous Notes * Telephone Encounter - Nannette Whittaker - 10/24/2022 10:19 AM EDT Button Riveter called and left voicemail for pt stating Pt1 Request was approved and she may call to schedule * Telephone Encounter - Nannette Whittaker - 10/24/2022 10:17 AM EDT Patient will recieve approval / denial letter via mail. PT-1 Request [id number] Pending - [facility] Pulmonology [address] [place] [address] [address] [place] * Telephone Encounter - Eddie Sousa - 10/21/2022 10:14 AM EDT Tc from pt requesting status on PT1. 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: no Wheelchair: no documented in this encounter Plan of Treatment Upcoming Encounters Date Type Department Care Team (Late st Contact Info) Description 09/28/2024 1:30 PM EDT Office Visit [facility] MEDICINE [address] [place], [place] [phone] Kristy Wilder MD [address] [employer], [place] 10/18/2024 11:00 AM EDT Telemedicine [facility] PEDS [address] [place] [address] Colette Diop, BRICE [address] [place], [place] documented as of this encounter Visit Diagnoses Not on filedocumented in this encounter Additional Health Concerns Assessment Noted Time PHQ-9 Depression Total Score: 11 022 1:16 PM EST documented as of this encounter Care Teams Proposal Manager Writer Relationship Specialty Start Date End Date Khloe Fonseca FNP PCP - General Family Medicine 02/05/22 12/25/22 Kristy Wilder MD [address] [place] [phone] PCP - General Internal Medicine 12/26/22 documented as of this encounter
--- OUTSIDE RECORDS SUMMARY | 2024-09-09 17:13 | XMS_ITS | Encounter Summary ---
Author Organization [employer] Address [address] [facility] [address], [place] [address] Care Team Providers Care Histology Teacher Name Role Phone Kristy Wilder MD Primary Care Pro vider Reason for Visit * Reason Onset Date Comments PT-1 08/03/2024 Encounter Details Date Type Department Care Team ([facility] st Contact Info) Description 08/03/2024 Telephone [facility] MEDICINE [address] [place], [place] [phone] Kristy Wilder MD [address] [place], [place] [phone] PT-1 Social History Tobacco Use Types Packs/Day Years [...] encounter Miscellaneous Notes * Telephone Encounter - Juan Manuel Travis - 08/03/2024 8:40 AM EST Patient calling requesting PT1 Home Address verified: Y/N: Yes Provider name or facility name: [facility] Facility Address: [address] [place] [address] Escort needed: Y/N: No Do you have a wheelchair: Y/N: No If yes- Manual or electric: N/A Visits: Twice monthly documented in this encounter Plan of Treatment Upcoming Encounters Date Type Department Care Team (Late st Contact Info) Description 09/28/2024 1:30 PM EDT Office Visit [facility] MEDICINE [address] [place] [phone] Kristy Wilder MD [address] [place] [phone] 10/18/2024 11:00 AM EDT Telemedicine [facility] MED & PEDS [address] [place] [address] Colette Diop RN [address] [place] [address] documented as of this encounter Visit Diagnoses Not on filedocumented in this encounter Additional Health Concerns Assessment Noted Time PHQ-9 Depression Total Score: 4 10/31/19 24 1:38 PM EDT documented as of this encounter Care Teams Histology Teacher Relationship Specialty Start Date End Date Kristy Wilder MD [address] [place] [phone] PCP - General Internal Medicine 12/26/22 documented as of this encounter
--- OUTSIDE RECORDS SUMMARY | 2024-09-09 17:13 | XMS_ITS | Clinical Summary ---
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 Care Industrial Technology Teacher Name Role Phone ANDREINA MENCHACA, CLARENCE Unavailable Unavailable TATI NARVAEZ, ALBERTA Unavailable Unavailable Payers Payer Name Policy Type Policy Number Effective Date Expira tion Date MEDICAID [facility] [id number] Problems Condition Name Condition Details Condition Category Status Onset Date Resolution Date Last Treatment Date Treating Clinician Comments MAJOR DEPRESSIVE DISORDER, RECURRENT, MODERATE Active 09-02 00:00: 00 Allergies, Adverse Reactions, Alerts Allergy Name Allergy Type Status Severity Reaction(s) Onset Date Inactive Date Treating Clinician Comments NKA Propensity to adverse reactions Active 2024-08 23:31:5 0 Medications Ordered Medication Name Filled Medication Name Start Date Stop Date Current Medication? Ordering Clinician Indication Dosage Frequency Signature (SIG) Comments Components Ambien 5 mg tablet 06-25 00:00: 00 09-01 23:59 :00 No [id number] 5 mg BEDTIME 5 mg BEDTIME (route: oral) Med Classific ation: Central Nervous System Agents buspirone 7.5 mg tablet 06-25 00:00: 00 09-01 23:59 :00 No [id number] 7.5 mg 2 TIMES DAILY 7.5 mg 2 TIMES DAILY (route: oral) Med Classific ation: Central Nervous System Agents Eliquis 5 mg tablet 06-25 00:00: 00 09-01 23:59 :00 No [id number] 5 mg 2 TIMES DAILY 5 mg 2 TIMES DAILY (route: oral) Med Classific ation: Hematolog ical Agents famotidine 20 mg tablet 06-25 00:00: 00 09-01 23:59 :00 No [id number] 20 mg 2 TIMES DAILY 20 mg 2 TIMES DAILY (route: oral) Med Classific ation: Gastroint estinal Therapy Agents levothyroxi ne 112 mcg tablet 06-25 00:00: 00 09-01 23:59 :00 No [id number] 112 mcg EVERY AM 112 mcg EVERY AM (route: oral) Med Classific ation: Endocrine losartan 25 mg tablet 06-25 00:00: 00 09-01 23:59 :00 No [id number] 25 mg NOON 25 mg NOON (route: oral) Med Classific ation: Cardiovas cular Therapy Agents metformin 500 mg tablet 06-25 00:00: 00 09-01 23:59 :00 No [id number] 500 mg DIRECTED 500 mg DIRECTED (route: oral) Med Classific ation: Endocrine mirtazapine 7.5 mg tablet 06-25 00:00: 00 09-01 23:59 :00 No [id number] 7.5 mg BEDTIME 7.5 mg BEDTIME (route: oral) Med Classific ation: Central Nervous System Agents Narcan 4 mg/actuatio n nasal spray 06-25 00:00: 00 09-01 23:59 :00 No [id number] 2 spray DIRECTED 2 spray DIRECTED (route: nasal) Med Classific ation: Antidotes and other Reversal Agents ondansetron 4 mg disintegrat ing tablet 06-25 00:00: 00 09-01 23:59 :00 No [id number] 4 mg EVERY 8 HOURS 4 mg EVERY 8 HOURS (route: oral) Med Classific ation: Gastroint estinal Therapy Agents oxycodone 5 mg tablet 06-25 00:00: 00 09-01 23:59 :00 No [id number] 5 mg EVERY 12 HOURS 5 mg EVERY 12 HOURS (route: oral) Med Classific ation: Analgesic , Anti-infl ammatory or Antipyret ic propranolol 10 mg tablet 06-25 00:00: 00 09-01 23:59 :00 No [id number] 17 mg 2 TIMES DAILY 17 mg 2 TIMES DAILY (route: oral) Med Classific ation: Cardiovas cular Therapy Agents sertraline 100 mg tablet 06-25 00:00: 00 09-01 23:59 :00 No [id number] 100 mg NOON 100 mg NOON (route: oral) Med Classific ation: Central Nervous System Agents buspirone 10 mg tablet 09-05 00:00: 00 Yes [id number] 1 tablet 2 TIMES DAILY 1 tablet 2 TIMES DAILY (route: oral) Med Classific ation: Central Nervous System Agents Colace 100 mg capsule 09-04 00:00: 00 Yes [id number] 1 capsule BEDTIME 1 capsule BEDTIME (route: oral) Med Classific ation: Gastroint estinal Therapy Agents Eliquis 5 mg tablet 09-04 00:00: 00 Yes [id number] 1 tablet 2 TIMES DAILY 1 tablet 2 TIMES DAILY (route: oral) Med Classific ation: Hematolog ical Agents levothyroxi ne 112 mcg tablet 09-04 00:00: 00 Yes [id number] 1 tablet EVERY AM 1 tablet EVERY AM (route: oral) Med Classific ation: Endocrine losartan 25 mg tablet 09-04 00:00: 00 Yes [id number] 1 tablet NOON 1 tablet NOON (route: oral) Med Classific ation: Cardiovas cular Therapy Agents metformin 500 mg tablet 09-04 00:00: 00 Yes [id number] 1 tablet EVERY AM 1 tablet EVERY AM (route: oral) Med Classific ation: Endocrine metformin 500 mg tablet 09-05 00:00: 00 Yes [id number] 2 tablet EVERY PM 2 tablet EVERY PM (route: oral) Med Classific ation: Endocrine Pepcid 20 mg tablet 09-04 00:00: 00 Yes [id number] 1 tablet 2 TIMES DAILY 1 tablet 2 TIMES DAILY (route: oral) Med Classific ation: Gastroint estinal Therapy Agents propranolol 10 mg tablet 09-04 00:00: 00 Yes [id number] 1 tablet 2 TIMES DAILY 1 tablet 2 TIMES DAILY (route: oral) Med Classific ation: Cardiovas cular Therapy Agents sertraline 100 mg tablet 09-04 00:00: 00 Yes [id number] 1 tablet NOON 1 tablet NOON (route: oral) Med Classific ation: Central Nervous System Agents mirtazapine 45 mg tablet 09-04 00:00: 00 Yes [id number] 1 tablet BEDTIME 1 tablet BEDTIME (route: oral) Med Classific ation: Central Nervous System Agents hydroxyzine HCl 10 mg tablet 09-04 00:00: 00 Yes [id number] 1-2 tablet 2 TIMES DAILY 1-2 tablet 2 TIMES DAILY (route: oral) Med Classific ation: Central Nervous System Agents Vital Signs Vital Name Observation Time Observation Value Commen ts Temperature 2024-09-06 17:52:00.000 96.7 [degF] Temperature 2024-09-04 13:45:00.000 98.4 [degF] Height 2024-09-04 22:42:35.000 65 [in_us] Pulse 2024-09-06 17:52:00.000 72 /min Pulse 2024-09-04 13:45:00.000 64 /min O2 Saturation (%) 2024-09-04 13:45:00.000 100 % Respirations 2024-09-06 17:52:00.000 16 /min Respirations 2024-09-04 13:45:00.000 16 /min Systolic Blood Pressure 2024-09-06 17:52:00.000 152 mm [Hg] Systolic Blood Pressure 2024-09-04 13:45:00.000 146 mm [Hg] Diastolic Blood Pressure 2024-09-06 17:52:00.000 82 mm [Hg] Diastolic Blood Pressure 2024-09-04 13:45:00.000 82 mm [Hg] Plan of Treatment Planned Activity Planned Date Details Comments Future Scheduled Test SKILLED NU RSE TO EVALUATE PATIENT, IDENTIFY PRIMARY AND CO-MORBID CONDITIONS CODED PER CODING GUIDELINES, AND DEVELOP PATIENT SPECIFIC PLAN OF CARE THAT INCLUDES PATIENT GOAL FOR HOME HEALTH. [code = SKILLED NURSE TO EVALUATE PATIENT, IDENTIFY PRIMARY AND CO-MORBID CONDITIONS CODED PER CODING GUIDELINES, AND DEVELOP PATIENT SPECIFIC PLAN OF CARE THAT INCLUDES PATIENT GOAL FOR HOME HEALTH.] Future Scheduled Test SKILLED NU RSE TO PERFORM HOME SAFETY AND FALL ASSESSMENT AND PROVIDE INSTRUCTION TO IMPLEMENT HOME SAFETY AND FALL PREVENTION STRATEGIES. [code = SKILLED NURSE TO PERFORM HOME SAFETY AND FALL ASSESSMENT AND PROVIDE INSTRUCTION TO IMPLEMENT HOME SAFETY AND FALL PREVENTION STRATEGIES.] Future Scheduled Test SKILLED NU RSE FOR OBSERVATION AND ASSESSMENT OF PATIENTS PAIN LEVEL AND EFFECTIVENESS OF PAIN MANAGEMENT REGIMEN. SKILLED NURSE TO INSTRUCT PATIENT/CAREGIVER REGARDING PHARMACOLOGIC AND NON-PHARMACOLOGIC PAIN CONTROL MEASURES. SKILLED NURSE TO REPORT TO PHYSICIAN IF PAIN IS UNCONTROLLED WITH CURRENT PAIN MANAGEMENT REGIMEN. [code = SKILLED NURSE FOR OBSERVATION AND ASSESSMENT OF PATIENTS PAIN LEVEL AND EFFECTIVENESS OF PAIN MANAGEMENT REGIMEN. SKILLED NURSE TO INSTRUCT PATIENT/CAREGIVER REGARDING PHARMACOLOGIC AND NON-PHARMACOLOGIC PAIN CONTROL MEASURES. SKILLED NURSE TO REPORT TO PHYSICIAN IF PAIN IS UNCONTROLLED WITH CURRENT PAIN MANAGEMENT REGIMEN.] Future Scheduled Test PATIENT BURKS S A RISK OF HOSPITALIZATION AND ED USE. SKILLED NURSE TO ESTABLISH SUPPORT MEASURES TO MINIMIZE RISK OF HOSPITALIZATION AND ED USE, AND INSTRUCT PATIENT/CAREGIVER ON METHODS TO REDUCE AVOIDABLE HOSPITALIZATION AND ED USE. [code = PATIENT HAS A RISK OF HOSPITALIZATION AND ED USE. SKILLED NURSE TO ESTABLISH SUPPORT MEASURES TO MINIMIZE RISK OF HOSPITALIZATION AND ED USE, AND INSTRUCT PATIENT/CAREGIVER ON METHODS TO REDUCE AVOIDABLE HOSPITALIZATION AND ED USE.] Future Scheduled Test SKILLED NU RSE TO O/A OF PATIENTS MENTAL/BEHAVIORAL STATUS, ASSESS VITAL SIGNS WEEKLY AND PRN ALLOW 2 PRNS FOR MEDICATION MANAGEMENT. [code = SKILLED NURSE TO O/A OF PATIENTS MENTAL/BEHAVIORAL STATUS, ASSESS VITAL SIGNS WEEKLY AND PRN ALLOW 2 PRNS FOR MEDICATION MANAGEMENT.] Future Scheduled Test SKILLED NU RSE WILL MAINTAIN SITUATIONAL AWARENESS FOR SAFETY AND WILL NOTIFY CLINICAL SAND MIXER AND PHYSICIAN/PROVIDER WITH ANY CHANGE IN CONDITION. [code = SKILLED NURSE WILL MAINTAIN SITUATIONAL AWARENESS FOR SAFETY AND WILL NOTIFY CLINICAL SAND MIXER AND PHYSICIAN/PROVIDER WITH ANY CHANGE IN CONDITION.] Future Scheduled Test SKILLED NU RSE FOR O/A OF GENERAL HEALTH STATUS OF PAIN, CARDIAC, RESPIRATORY, GASTROINTESTINAL, GENITOURINARY, SKIN, NEUROLOGIC, ENDOCRINE SYSTEMS TO IDENTIFY CHANGES ASSOCIATED WITH EXACERBATION FOR EARLY INTERVENTION OF COMPLICATIONS WEEKLY AND PRN. [code = SKILLED NURSE FOR O/A OF GENERAL HEALTH STATUS OF PAIN, CARDIAC, RESPIRATORY, GASTROINTESTINAL, GENITOURINARY, SKIN, NEUROLOGIC, ENDOCRINE SYSTEMS TO IDENTIFY CHANGES ASSOCIATED WITH EXACERBATION FOR EARLY INTERVENTION OF COMPLICATIONS WEEKLY AND PRN. ] Future Scheduled Test SKILLED NU RSE TO REVIEW PATIENT MEDICATIONS. INSTRUCT PATIENT/CAREGIVER ON MONITORING OF EFFECTIVENESS, ADVERSE DRUG REACTIONS, SIDE EFFECTS OF ALL MEDICATIONS (PRESCRIPTION/-OTC), AND HOW AND WHEN TO REPORT PROBLEMS. [code = SKILLED NURSE TO REVIEW PATIENT MEDICATIONS. INSTRUCT PATIENT/CAREGIVER ON MONITORING OF EFFECTIVENESS, ADVERSE DRUG REACTIONS, SIDE EFFECTS OF ALL MEDICATIONS (PRESCRIPTION/-OTC), AND HOW AND WHEN TO REPORT PROBLEMS.] Future Scheduled Test SKILLED NU RSE TO PRE-POUR MEDICATION PER MEDICATION LIST 3 DAYS PER WEEK. (PT MANAGES HER OWN ELIQUS, LEVOTHYROXINE, AND BUSPAR) [code = SKILLED NURSE TO PRE-POUR MEDICATION PER MEDICATION LIST 3 DAYS PER WEEK. (PT MANAGES HER OWN ELIQUS, LEVOTHYROXINE, AND BUSPAR) ] Future Scheduled Test SKILLED NU RSE TO ASSESS PATIENTS PSYCHOSOCIAL STATUS TO IDENTIFY POTENTIAL ISSUES THAT MAY COMPLICATE THE PROVISION OF THE PLAN OF CARE INCLUDING THE PATIENTS ABILITY TO ACCESS COMMUNITY RESOURCES AND PSYCHOSOCIAL SUPPORT SERVICES. [code = SKILLED NURSE TO ASSESS PATIENTS PSYCHOSOCIAL STATUS TO IDENTIFY POTENTIAL ISSUES THAT MAY COMPLICATE THE PROVISION OF THE PLAN OF CARE INCLUDING THE PATIENTS ABILITY TO ACCESS COMMUNITY RESOURCES AND PSYCHOSOCIAL SUPPORT SERVICES.] Future Scheduled Test SKILLED NU RSE FOR O/A AND TEACHING RELATED TO LUNG CANCER INCLUDING SIGNS AND SYMPTOMS OF DISEASE PROGRESSION, TREATMENT, AND MANAGEMENT OF POTENTIAL SIDE EFFECTS. [code = SKILLED NURSE FOR O/A AND TEACHING RELATED TO LUNG CANCER INCLUDING SIGNS AND SYMPTOMS OF DISEASE PROGRESSION, TREATMENT, AND MANAGEMENT OF POTENTIAL SIDE EFFECTS.] Future Scheduled Test SKILLED NU RSE FOR O/A AND SKILLED TEACHING RELATED TO MANAGEMENT OF DEPRESSIVE SYMPTOMS AND/OR DEPRESSION. SN TO REPORT SIGNIFICANT CHANGE IN DEPRESSIVE SYMPTOMS TO CLINICAL PROVIDER FOR EARLY INTERVENTION. [code = SKILLED NURSE FOR O/A AND SKILLED TEACHING RELATED TO MANAGEMENT OF DEPRESSIVE SYMPTOMS AND/OR DEPRESSION. SN TO REPORT SIGNIFICANT CHANGE IN DEPRESSIVE SYMPTOMS TO CLINICAL PROVIDER FOR EARLY INTERVENTION.] Future Scheduled Test SKILLED NU RSE FOR O/A AND TEACHING OF DIABETIC MANAGEMENT INCLUDING BLOOD SUGAR MONITORING/USE OF GLUCOMETER, DIABETIC DIET, LOWER EXTREMITY SKIN INSPECTION, PROPER SKIN/FOOT CARE, AND SIGNS AND SYMPTOMS HYPO/HYPERGLYCEMIA TO REPORT. BLOOD SUGAR TO BE MONITORED DAILY. [code = SKILLED NURSE FOR O/A AND TEACHING OF DIABETIC MANAGEMENT INCLUDING BLOOD SUGAR MONITORING/USE OF GLUCOMETER, DIABETIC DIET, LOWER EXTREMITY SKIN INSPECTION, PROPER SKIN/FOOT CARE, AND SIGNS AND SYMPTOMS HYPO/HYPERGLYCEMIA TO REPORT. BLOOD SUGAR TO BE MONITORED DAILY.] Goal Patient Goal - TO SLEEP BETT ER Goal Provider Goal - A PLAN OF CARE WILL BE ESTABLISHED THAT MEETS PATIENT'S SHELTER NEEDS AND INCLUDES PATIENT GOAL FOR HOME HEALTH. Goal Provider Goal - PATIENT/CAREGIVER WILL VERBALIZE/DEMONSTRATE EFFECTIVE HOME SAFETY AND FALL PREVENTION STRATEGIES THROUGHOUT CERTIFICATION PERIOD. Goal Provider Goal - PATIENT/CAREGIVER WILL DEMONSTRATE UNDERSTANDING OF PHARMACOLOGIC AND NONPHARMACOLOGIC PAIN CONTROL MEASURES AND PATIENT WILL HAVE IMPROVEMENT IN PAIN INTERFERING WITH ACTIVITY EVIDENCED BY PAIN CONTROLLED AT LEVEL OF 4 OR LESS BY END OF CERTIFICATION PERIOD. Goal Provider Goal - PATIENT WILL HAVE SUPPORT MEASURES ESTABLISHED TO PREVENT HOSPITALIZATION AND ED USE AND PATIENT/CAREGIVER WILL VERBALIZE/DEMONSTRATE METHODS TO REDUCE AVOIDABLE HOSPITALIZATION AND ED USE BY END OF EPISODE. Goal Provider Goal - ALTERED MENTAL/BEHAVIORAL STATUS WILL BE IDENTIFIED PROMPTLY AND INTERVENTION INITIATED QUICKLY TO MINIMIZE ASSOCIATED RISKS THROUGHOUT CERTIFICATION PERIOD. Goal Provider Goal - PATIENT WILL REMAIN SAFE IN THE COMMUNITY AND WILL BE FREE OF DANGER TO SELF AND OTHERS THROUGHOUT THE CERTIFICATION PERIOD. Goal Provider Goal - CHANGE IN GENERAL HEALTH STATUS WILL BE IDENTIFIED AND REPORTED TO PHYSICIAN FOR PROMPT INTERVENTION TO MINIMIZE ASSOCIATED RISKS THROUGHOUT CERTIFICATION PERIOD. Goal Provider Goal - PATIENT/CAREGIVER WILL VERBALIZE UNDERSTANDING OF EDUCATION PROVIDED ON MEDICATIONS BY THE END OF THE CERTIFICATION PERIOD. Goal Provider Goal - PATIENT WILL COMPLY WITH MEDICATION WHEN SKILLED NURSE PRE-POURS MEDICATION THROUGHOUT CERTIFICATION PERIOD. Goal Provider Goal - PSYCHOSOCIAL NEEDS WILL BE IDENTIFIED AND PLAN IMPLEMENTED TO MINIMIZE RISK THROUGHOUT CERTIFICATION PERIOD. Goal Provider Goal - PATIENT/CAREGIVER WILL VERBALIZE/DEMONSTRATE MANAGEMENT OF LUNG CANCER/NEOPLASM DISEASE AND THE SIDE EFFECTS OF TREATMENTS DURING THIS EPISODE. Goal Provider Goal - PATIENT WILL REMAIN SAFE WITHOUT DECOMPENSATION IN DEPRESSIVE CONDITION, WHILE MAINTAINING OPTIMAL LEVEL OF MENTAL HEALTH AND WELL BEING THROUGHOUT CERTIFICATION PERIOD. Goal Provider Goal - PATIENT/CAREGIVER WILL VERBALIZE/DEMONSTRATE KNOWLEDGE OF DIABETIC MANAGEMENT. CHANGES IN DIABETIC STATUS WILL BE IDENTIFIED AND REPORTED TO PHYSICIAN FOR PROMPT INTERVENTION THROUGHOUT THE CERTIFICATION PERIOD. Encounters Start Date/Time End Date/Time Encounter Type Admission Type Attending [facility] Care Facility Care Department Encounter ID Discharge Date Discharge Status Discharge Condition Discharge Reason Percent Goals Met 2024-09-04 00:00:00 2024-11-02 00:00:00 Outpatient ALBERTA HERNANDEZ [facility] [id number] 8.57
--- OUTSIDE RECORDS SUMMARY | 2024-09-09 17:13 | XMS_ITS | Clinical Summary ---
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 Care Human Geography Faculty Member Name Role Phone ANDREINA MENCHACA, CLARENCE Unavailable Unavailable TATI NARVAEZ, ALBERTA Unavailable Unavailable Payers Payer Name Policy Type Policy Number Effective Date Expira tion Date MEDICAID [facility] [id number] Problems Condition Name Condition Details Condition Category [...] 06-25 00:00: 00 09-01 23:59 :00 No [id number] 5 mg BEDTIME 5 mg BEDTIME (route: oral) Med Classific ation: Central Nervous System Agents buspirone 7.5 mg tablet 06-25 00:00: 00 09-01 23:59 :00 No [id number] 7.5 mg 2 TIMES DAILY 7.5 mg 2 TIMES DAILY (route: oral) Med Classific ation: Central Nervous System Agents Eliquis 5 mg tablet 06-25 00:00: 00 09-01 23:59 :00 No [id number] 5 mg 2 TIMES DAILY 5 mg 2 TIMES DAILY (route: oral) Med Classific ation: Hematolog ical Agents famotidine 20 mg tablet 06-25 00:00: 00 09-01 23:59 :00 No [id number] 20 mg 2 TIMES DAILY 20 mg 2 TIMES DAILY (route: oral) Med Classific ation: Gastroint estinal Therapy Agents levothyroxi ne 112 mcg tablet 06-25 00:00: 00 09-01 23:59 :00 No [id number] 112 mcg EVERY AM 112 mcg EVERY AM (route: oral) Med Classific ation: Endocrine losartan 25 mg tablet 06-25 00:00: 00 09-01 23:59 :00 No [id number] 25 mg NOON 25 mg NOON (route: oral) Med Classific ation: Cardiovas cular Therapy Agents metformin 500 mg tablet 06-25 00:00: 00 09-01 23:59 :00 No [id number] 500 mg DIRECTED 500 mg DIRECTED (route: oral) Med Classific ation: Endocrine mirtazapine 7.5 mg tablet 06-25 00:00: 00 09-01 23:59 :00 No [id number] 7.5 mg BEDTIME 7.5 mg BEDTIME (route: oral) Med Classific ation: Central Nervous System Agents Narcan 4 mg/actuatio n nasal spray 06-25 00:00: 00 09-01 23:59 :00 No [id number] 2 spray DIRECTED 2 spray DIRECTED (route: nasal) Med Classific ation: Antidotes and other Reversal Agents ondansetron 4 mg disintegrat ing tablet 06-25 00:00: 00 09-01 23:59 :00 No [id number] 4 mg EVERY 8 HOURS 4 mg EVERY 8 HOURS (route: oral) Med Classific ation: Gastroint estinal Therapy Agents oxycodone 5 mg tablet 06-25 00:00: 00 09-01 23:59 :00 No [id number] 5 mg EVERY 12 HOURS 5 mg EVERY 12 HOURS (route: oral) Med Classific ation: Analgesic , Anti-infl ammatory or Antipyret ic propranolol 10 mg tablet 06-25 00:00: 00 09-01 23:59 :00 No [id number] 17 mg 2 TIMES DAILY 17 mg 2 TIMES DAILY (route: oral) Med Classific ation: Cardiovas cular Therapy Agents sertraline 100 mg tablet 06-25 00:00: 00 09-01 23:59 :00 No [id number] 100 mg NOON 100 mg NOON (route: oral) Med Classific ation: Central Nervous System Agents buspirone 10 mg tablet 09-05 00:00: 00 Yes [id number] 1 tablet 2 TIMES DAILY 1 tablet 2 TIMES DAILY (route: oral) Med Classific ation: Central Nervous System Agents Colace 100 mg capsule 09-04 00:00: 00 Yes [id number] 1 capsule BEDTIME 1 capsule BEDTIME (route: oral) Med Classific ation: Gastroint estinal Therapy Agents Eliquis 5 mg tablet 09-04 00:00: 00 Yes [id number] 1 tablet 2 TIMES DAILY 1 tablet 2 TIMES DAILY (route: oral) Med Classific ation: Hematolog ical Agents levothyroxi ne 112 mcg tablet 09-04 00:00: 00 Yes [id number] 1 tablet EVERY AM 1 tablet EVERY AM (route: oral) Med Classific ation: Endocrine losartan 25 mg tablet 09-04 00:00: 00 Yes [id number] 1 tablet NOON 1 tablet NOON (route: oral) Med Classific ation: Cardiovas cular Therapy Agents metformin 500 mg tablet 09-04 00:00: 00 Yes [id number] 1 tablet EVERY AM 1 tablet EVERY AM (route: oral) Med Classific ation: Endocrine metformin 500 mg tablet 09-05 00:00: 00 Yes [id number] 2 tablet EVERY PM 2 tablet EVERY PM (route: oral) Med Classific ation: Endocrine Pepcid 20 mg tablet 09-04 00:00: 00 Yes [id number] 1 tablet 2 TIMES DAILY 1 tablet 2 TIMES DAILY (route: oral) Med Classific ation: Gastroint estinal Therapy Agents propranolol 10 mg tablet 09-04 00:00: 00 Yes [id number] 1 tablet 2 TIMES DAILY 1 tablet 2 TIMES DAILY (route: oral) Med Classific ation: Cardiovas cular Therapy Agents sertraline 100 mg tablet 09-04 00:00: 00 Yes [id number] 1 tablet NOON 1 tablet NOON (route: oral) Med Classific ation: Central Nervous System Agents mirtazapine 45 mg tablet 09-04 00:00: 00 Yes [id number] 1 tablet BEDTIME 1 tablet BEDTIME (route: oral) Med Classific ation: Central Nervous System Agents hydroxyzine HCl 10 mg tablet 09-04 00:00: 00 Yes [id number] 1-2 tablet 2 TIMES DAILY 1-2 tablet [...] AWARENESS FOR SAFETY AND WILL NOTIFY CLINICAL LIVESTOCK FEEDER AND PHYSICIAN/PROVIDER WITH ANY CHANGE IN CONDITION. [code = SKILLED NURSE WILL MAINTAIN SITUATIONAL AWARENESS FOR SAFETY AND WILL NOTIFY CLINICAL LIVESTOCK FEEDER AND PHYSICIAN/PROVIDER WITH ANY CHANGE IN CONDITION.] [...] CARE WILL BE ESTABLISHED THAT MEETS PATIENT'S INTERMEDIATE NEEDS AND INCLUDES PATIENT GOAL FOR HOME [...] End Date/Time Encounter Type Admission Type Attending [facility] Care Facility Care Department Encounter ID Discharge Date Discharge Status Discharge Condition Discharge Reason Percent Goals Met 2024-09-04 00:00:00 2024-11-02 00:00:00 Outpatient ALBERTA HERNANDEZ [facility] [id number] 8.57
--- OUTSIDE RECORDS SUMMARY | 2024-09-09 17:14 | XMS_ITS | Encounter Summary ---
Author Organization [employer] Address [address] [place] [address] Care Team Providers Care Auto Hauler Name Role Phone Kristy Wilder MD Primary Care Pro vider Reason for Visit * Reason Comments Med Refill Encounter Details Date Type Department Care Team ([facility] st Contact Info) Description 09/25/2023 Refill [facility] [address], [place] [phone] Kristy Wilder MD [address], [place] [phone] Primary insomnia Social History Tobacco Use Types Packs/Day Years Used Date Smoking Tobacco: Never Passive Smoke Exposure: Never Smokeless Tobacco: Never Alcohol Use Standard Drinks/Week Comments Never 0 (1 standard drink = 0.6 oz pur e alcohol) Depression Answer Date Recorded Patient Health Questionnaire-9 Score 16 03/11/2023 Housing Stability Answer Date Recorded What is your housing situation today? I have kentonjade lawton 06/19/[address] you [...] Description 09/28/2024 1:30 PM EDT Office Visit [facility] [address] [place] [address] Kristy Wilder MD [address] [place] [id number] 10/18/2024 11:00 AM EDT Telemedicine [facility] [address], [place] [phone] Colette Diop, BRICE [address] [place] [address] documented as of this encounter Visit Diagnoses Diagnosis Primary insomnia Persistent disorder of initiating or maintaining sleep documented in this encounter Additional Health Concerns Assessment Noted Time PHQ-9 Depression Total Score: 16 023 11:20 AM EDT documented as of this encounter Care Teams Auto Hauler Relationship Specialty Start Date End Date Kristy Wilder MD [address] [place] [phone] PCP - General Internal Medicine 12/26/22 documented as of this encounter
--- OUTSIDE RECORDS SUMMARY | 2024-09-09 17:14 | XMS_ITS | Clinical Summary ---
Author Organization [facility] Address [address] [place] [address] Care Team Providers Care Real Estate Legal Secretary Name Role Phone Bryce Terrietaijuice Partha Primary Care Provider Allergies Active Allergy Reactions Criticality Noted Date Comments Other Rash 02/04/2019 Contax, medication for [place] Medications buPROPion XL (WELLBUTRIN XL) 150 mg tablet Take 150 mg by mouth daily. 1 09/30/2018 Active sertraline (ZOLOFT) 25 mg tablet Take 25 mg by mouth daily. 1 09/30/2018 Active zolpidem (AMBIEN) 10 mg tablet Take 10 mg by mouth nightly. at bedtime. 4 10/01/2018 Active losartan (COZAAR) 25 mg tablet Take 25 mg by mouth daily. 5 09/30/2018 Active metFORMIN ER (GLUCOPHAGE XR) 500 mg tablet Take 500 mg by mouth 2 times a day with meals. 5 09/30/2018 Active omeprazole (PriLOSEC) 40 mg capsule Take 40 mg by mouth daily. Active docusate sodium (COLACE) 100 mg capsule Take 1 capsule (100 mg total) by mouth 2 times a day. 02/09/2019 Active Hospital, Clinic, or Other Facility Administered Medication Ordered Dose Route Frequency Start Date End Date Status lidocaine (XYLOCAINE) 2% (20 mg/mL) urojet jelly 0.1 g 0.1 g topical Once 12/18/2020 Active nitrofurantoin monohydrate/macrocrystals (MACROBID) 100 mg capsule 100 mg 100 mg oral Once 12/18/2020 Active Active Problems Problem Noted Date Diagnosed Date Gross hematuria 12/18/2020 Renal cell carcinoma of right kidney 07/21/2019 Resolved Problems Problem Noted Date Diagnosed Date Resolved Date Renal mass 10/20/2018 06/10/2019 Family History Medical History Relation Name Comments Psoriasis Brother Relation Name Status Comments Brother Social History Tobacco Use Types Packs/Day Years Used Date Smoking Tobacco: Never Smokeless Tobacco: Never Alcohol Use Standard Drinks/Week Comments Never 0 (1 standard drink = 0.6 oz pur e alcohol) Comments No Sex and Gender Information Value Date Recorded Sex Assigned at Not on file Legal Sex Female 3:07 PM EDT Gender Identity Not on file Sexual Orientation Not on file Last Filed Vital Signs Vital Sign Reading Time Taken Comments Blood Pressure 126/74 02/13/2021 2:03 PM EDT Pulse 69 12/19/2020 2:02 PM EDT Temperature 36.6 ??C (97.9 ??F) 02/09/2019 1 2:06 PM EDT Respiratory Rate 18 02/09/2019 12:0 6 PM EDT Oxygen Saturation 95% 02/09/2019 12: 06 PM EDT Inhaled Oxygen Concentration - - Weight 92.5 kg (203 lb 14.8 oz) 019 12:00 PM EDT Height 165.1 cm (5' 5 ) 02/09/2019 12:0 0 PM EDT Body Mass Index 33.93 02/09/2019 12:00 PM EDT Plan of Treatment Health Maintenance Due Date Last Done Comments Cervical Cancer Screening 1967 Cologuard 1967 Colon Cancer Screening 1967 Colonoscopy 1967 FOBT / Fit Test 1967 HIV Screening 1967 HPV and Pap Smear 1967 Pap Smear 1967 Sigmoidoscopy 1967 Hepatitis B Vaccines (1 of 3 - 19+ 3-dose series) 03/09 Zoster Vaccines (1 of 2) 2017 Pneumococcal Vaccine: 50+ Years (2 of 2 - PPSV23) 06/201904/09/2019 Alcohol/Substance Use Screening 06/09/2024 Influenza Vaccine (Season Ended) 2025 DTaP,Tdap,and Td Vaccines (2 - Td or Tdap) 04/09/2029 04/09/2019 RSV Vaccine (60+ years old a nd patients) (1 - 1-dose 75+ series) 2042 Medical Devices Implanted Type Area Wrestling Coach Device Identifier Shelf Expiration Date Model / Serial / Lot System Closure Suture Medicated Perclose Proglide 6fr - [id number] Implanted:Qty: 1 on 02/04/2019 at [facility] Implant [employer] [id number] 126 73-03 / / Coil Embolization Neurovascular [place] 0.035in 7uns5pt Tornado - [id number] Implanted:Qty: 1 on 02/04/2019 at [facility] Implant [employer] [id number] 10/11/19 23 [id number] / / [id number] Coil Embolization Neurovascular [place] [employer] 0.035in 8eni2ae Tornado - [id number] Implanted:Qty: 1 on 02/04/2019 at [facility] Implant [employer] [id number] 08/03/19 24 [id number] / / [id number] Coil Embolization Neurovascular [place] [employer] 0.035in [id number] Tornado - [id number] Implanted:Qty: 1 on 02/04/2019 at [facility] Implant [employer] [id number] 08/03/19 24 [id number] / / [id number] Coil Embolization Neurovascular [place] [employer] 0.035in [id number] Tornado - [id number] Implanted:Qty: 1 on 02/04/2019 at [facility] Implant [employer] [id number] 08/03/19 24 [id number] / / [id number] [place] [address] [place] [address] Care Teams Real Estate Legal Secretary Relationship Specialty Start Date End Date Davon Wu [address] [place] [id number] PCP - General Internal Medicine 09/28/18
--- OUTSIDE RECORDS SUMMARY | 2024-09-09 17:14 | XMS_ITS | Encounter Summary ---
Author Organization [employer] Address [address] [facility] [address] [address] Care Team Providers Care Contract Implementation Analyst Name Role Phone Kristy Wilder MD Primary Care Pro vider Reason for Visit * Reason Onset Date Comments NTTS 09/09/2024 Encounter Details Date Type Department Care Team ([facility] st Contact Info) Description 09/09/2024 Telephone [facility] [address] [place], [place] [phone] Kristy Wilder MD [address] [place], [place] [phone] NTTS Social History Tobacco Use Types Packs/Day Years [...] encounter Miscellaneous Notes * Telephone Encounter - Rebekah Rashid RN - 09/09/2024 11:28 AM EDT Received secure chat message of pt calling office back. Sheeter Operator advised call center staff internist office based only will call back with an electromechanical technologist. TC placed to pt via [employer] electromechanical technologist ([employer] ID#[id number]) to speak with pt regarding nurse telephone triage service patient call report. Pt reports they think they currently have a BP 150/101, HR 62 and blood sugar 156. Pt not sure if she read the BP and HR correctly. Pt initially stated her BP was 150/62 then stated it was 150/101 with a pulse of 62. Pt reports yesterday they had shaking all over their body and could not feel right arm (right arm numb). Pt reports the shaking resolved. Pt reports right arm is still heavy, not a lot, but still experiencing a little h eaviness. Pt reports 9/10 right arm pain. Pt reports headache rated at 9/10 for more than a week. Pt reports blurry vision in right eye only. Advised pt they are strongly encouraged to go to the ED for evaluation based on symptoms and reported BP. Pt states Okay. I am getting ready to go to my chemotherapy appointment right now and that is at 1:30. Sheeter Operator again advised pt of going to ED for evaluation and asked pt if they will go to ED. Pt states they have chemotherapy and they already confirmed the appointment and need to go to that appointment. Advised pt to go to ED today for evaluation.Pt states Okay . Message forwarded to PCP as an FYI. * Telephone Encounter - Rebekah Rashid RN - 09/09/2024 11:09 AM EDT TC placed to pt via S electromechanical technologist (Su ID#[id number]) regarding received nurse telephone triage service patient call report to status check pt. Pt answered the phone. Pt provided name but pt would notprovide date of . Pt states they have received calls of individuals asking for money and pt does not feel comfortable providing . Advised [facility] is [facility]. [facility] Sheeter Operator informed pt that they cannot disclose any reason for call without verifying pt . Pt again states they do not feel comfortable providing this information. Advised pt to call office back. Pt verbalized understanding. Looking at the received NTTS patient call report, it appears this patient called on 09/04/24 and message was received on 09/06/24. It appears the pt was reached on 09/06/24 by Marisol West RN and advised to go to ED for evaluation. documented in this encounter Plan of Treatment Upcoming Encounters Date Type Department Care Team (Late st Contact Info) Description 09/28/2024 1:30 PM EDT Office Visit [facility] [address] [place] [address] Kristy Wilder MD [address] [place] [address] 10/18/2024 11:00 AM EDT Telemedicine [facility] PEDS [address] [place] [address] Colette Diop RN [address] [place] [address] documented as of this encounter Visit Diagnoses Not on filedocumented in this encounter Additional Health Concerns Assessment Noted Time PHQ-9 Depression Total Score: 4 10/31/19 24 1:38 PM EDT documented as of this encounter Care Teams Contract Implementation Analyst Relationship Specialty Start Date End Date Kristy Wilder MD [address] [place] [phone] PCP - General Internal Medicine 12/26/22 documented as of this encounter
--- OUTSIDE RECORDS SUMMARY | 2024-09-09 17:14 | XMS_ITS | Encounter Summary ---
Author Organization [employer] Address [address] [place] [address] Care Team Providers Care Excel Vba Developer Name Role Phone Khloe Fonseca PIANO REGULATOR Primary Care Provider [phone] Kristy Wilder MD Primary Care Pro vider Reason for Visit * Reason Onset Date Comments Med Refill [facility] order 08/25/2022 Order # [id number] Encounter Details Date Type Department Care Team (Late st Contact Info) Description 08/25/2022 Refill [facility] [address] [place] [address] Khloe Fonseca [address] Dept [place] [address] Type 2 diabetes mellitus without complication, without long-term current use of insulin ([facility]) Social History Tobacco Use Types Packs/Day Years [...] suspected to have Coronavirus/COVID-19? No / Unsure 08/27/2022 9:46 AM EDT documented as of this encounter Miscellaneous Notes * Telephone Encounter - Pinky Montana RN - 08/28/2022 11:23 AM EDT nEW MEDS: bACLOFEN 20MG 1 TABLET tHREE TIMES A DAY ACETAMINOPHEN 650 MG ONE TABLET THREE TIMES A DAY ADDED TO MED LIST documented in this encounter Plan of Treatment Upcoming Encounters Date Type Department Care Team (Late st Contact Info) Description 09/28/2024 1:30 PM EDT Office Visit [facility] [address] [place] [address] Kristy Wilder MD [address] [place], [place] [phone] 10/18/2024 11:00 AM EDT Telemedicine [facility] PEDS [address] [place], [place] [phone] Colette Diop RN [address] [place], [place] [phone] documented as of this encounter Visit Diagnoses Diagnosis Type 2 diabetes mellitus without complication, without long-term current use of insulin ([facility]) documented in this encounter Additional Health Concerns Assessment Noted Time PHQ-9 Depression Total Score: 11 022 1:16 PM EST documented as of this encounter Care Teams Excel Vba Developer Relationship Specialty Start Date End Date Khloe Fonseca FNP PCP - General Family Medicine 02/05/22 12/25/22 Kristy Wilder MD [address] [place] [address] PCP - General Internal Medicine 12/26/22 documented as of this encounter
--- OUTSIDE RECORDS SUMMARY | 2024-09-09 17:14 | XMS_ITS | Encounter Summary ---
Author Organization [employer] Address [address] [facility] [address] [place] [address] Care Team Providers Care Horseshoer Name Role Phone Kristy Wilder MD Primary Care Pro vider Reason for Visit * Reason Onset Date Comments Nurse Triage 08/08/2023 Encounter Details Date Type Department Care Team ([facility] st Contact Info) Description 08/08/2023 Telephone [facility] [address] [place], [place] [phone] Kristy Wilder MD [address] [place], [place] [phone] Nurse Triage Social History Tobacco Use Types Packs/Day Years [...] encounter Miscellaneous Notes * Telephone Encounter - Sadie Nettles LPN - 08/08/2023 9:19 AM EST Triage call returned to patient with [place] [employer] Technician [id number]. Patient with soft voice and weakness. Received per her report a hepatitis vaccine last Friday in PCP office. Patient with onset of illness on Friday with weakness loss of appetite unable to take medications food or fluids. Patient missed chemo appt and today's Derm appt cancelled by this Nurse due to patient illness. No noted fever. Unable to get OOB and unable to attend cancer care. Patient with implanted port in left chest andchanged from right side due to infection date unclear. Disposition reviewed and patient in agreement with plan. Instructed to access 911 EMS for transport to [facility] ED ( followed by Oncologist) there. PCP updated on patient status.Team to follow. Protocol Used: Weakness (Generalized) and Fatigue (Adult) Protocol-Based Disposition: Call EMS 911 Now Positive Triage Question: * Severe weakness (i.e., unable to walk or barely able to walk, requires support) and new-onset or worsening * All higher-acuity triage questions were negative Care Advice Discussed: * Reasons To Call Back - Passes out - Breathing difficulty occurs - You become worse * Telephone Encounter - Mariluz Patrick - 08/08/2023 8:49 AM EST Symptoms: Vaccine Reactions - Caller Reports, Weakness Outcome: Schedule an urgent appointment (within 1 hour) or talk to a nurse or provider soon Reason: Started within the past 3 days The caller accepted this outcome Please contact pt at [phone] (Persian) documented in this encounter Plan of Treatment Upcoming Encounters Date Type Department Care Team (Late st Contact Info) Description 09/28/2024 1:30 PM EDT Office Visit [facility] [address] [place] [address] Kristy Wilder MD [address] [place] [address] 10/18/2024 11:00 AM EDT Telemedicine [facility]EDS [address] [place], [place] [phone] Colette Diop, BIRCE [address] [place], [place] [phone] documented as of this encounter Visit Diagnoses Not on filedocumented in this encounter Additional Health Concerns Assessment Noted Time PHQ-9 Depression Total Score: 16 023 11:20 AM EDT documented as of this encounter Care Teams Horseshoer Relationship Specialty Start Date End Date Kristy Wilder MD [address] [place] [address] PCP - General Internal Medicine 12/26/22 documented as of this encounter
--- OUTSIDE RECORDS SUMMARY | 2024-09-09 17:14 | XMS_ITS | Encounter Summary ---
Author Organization [email or web address] Address [address] [address] Care Team Providers Care Senior Web Engineer Name Role Phone Kristy Wilder MD Primary Care Pro vider Reason for Visit * Reason Onset Date Comments Letter for School/Work 12/26/2022 Encounter Details Date Type Department Care Team ([facility] st Contact Info) Description 12/26/2022 Telephone [facility] [address] [place], [place] [phone] Kristy Wilder MD [address] [place] [address] Letter for School/Work Social History Tobacco Use Types Packs/Day Years Used Date Smoking Tobacco: Never Passive Smoke Exposure: Never Smokeless Tobacco: Never Comments Unknown Sex and Gender Information Value Date Recorded Sex Assigned at Female 04/08/2022 10:34 AM EDT Legal Sex Female 10:34 AM EDT Gender Identity Female 04/08/2022 10:34 AM EDT Sexual Orientation Straight 04/08/2022 10 :34 AM EDT documented as of this encounter Miscellaneous Notes * Telephone Encounter - Mary Anne Adam LPN - 12/31/2022 8:21 AM EDT Patient requires to follow process, please let patient know she needs to go to Medical Records to put in her request and sign an auth to release. Thank you. * Telephone Encounter - Mariluz Darnell - 12/26/2022 3:09 PM EDT Tc from gerardo requesting for PCP to make a letter for LABORATORY CUREMAN hours and dx on letter to be faxed to [phone] documented in this encounter Plan of Treatment Upcoming Encounters Date Type Department Care Team (Late st Contact Info) Description 09/28/2024 1:30 PM EDT Office Visit [facility] [address] [place] [address] Kristy Wilder MD [address] [place] [address] 10/18/2024 11:00 AM EDT Telemedicine [facility] [address] [place], [place] [phone] Colette Diop, BRICE [address] [place], [place] [phone] documented as of this encounter Visit Diagnoses Not on filedocumented in this encounter Additional Health Concerns Assessment Noted Time PHQ-9 Depression Total Score: 11 022 1:16 PM EST documented as of this encounter Care Teams Senior Web Engineer Relationship Specialty Start Date End Date Kristy Wilder MD [address] [place] [address] PCP - General Internal Medicine 12/26/22 documented as of this encounter
--- OUTSIDE RECORDS SUMMARY | 2024-09-09 17:14 | XMS_ITS ---
Author Organization [facility] Address [address] [place] [address] Care Team Providers Care Head Of Advertising Name Role Phone Davon Wu Primary Care Provider [phone] Active Problems Problem Noted Date Diagnosed Date Gross hematuria 12/18/2020 Renal cell carcinoma of right kidney 07/21/2019 Current Treatment and Therapy Plans No current plan information found. Past Treatment and Therapy Plans No past plan information found. Lifetime Dose Tracking * Chemical Lifetime Dose Automatic Entry Manual Entr y Fluoro Time 22.2 minutes 22.2 minutes 0 minutes Radiation - mGy 2,492.75 mGy 2,492.75 mGy 0 mGy Resolved Problems Problem Noted Date Diagnosed Date Resolved Date Renal mass 10/20/2018 06/10/2019
--- OUTSIDE RECORDS SUMMARY | 2024-09-09 17:14 | XMS_ITS | Encounter Summary ---
Author Organization [facility] Address [address] [place] [address] Care Team Providers Care Caul Fat Puller Name Role Phone Davon Wu Primary Care Provider [phone] Encounter Details Date Type Department Care Team (Late st Contact Info) Description 10/31/2020 Orders Only [facility] XRay [address] [place], [place] [phone] Winifred Winston MD [address] [place], [place] [phone] Social History Tobacco Use Types Packs/Day Years Used Date Smoking Tobacco: Never Smokeless Tobacco: Never Alcohol Use Standard Drinks/Week Comments Never 0 (1 standard drink = 0.6 oz pur e alcohol) Comments No Sex and Gender Information Value Date Recorded Sex Assigned at Not on file Legal Sex Female 3:07 PM EDT Gender Identity Not on file Sexual Orientation Not on file documented as of this encounter Plan of Treatment Not on file documented as of this encounter Visit Diagnoses Not on filedocumented in this encounter Care Teams Caul Fat Puller Relationship Specialty Start Date End Date Davon Wu [address] [place] [address] PCP - General Internal Medicine 09/28/18 documented as of this encounter
--- OUTSIDE RECORDS SUMMARY | 2024-09-09 17:14 | XMS_ITS | Encounter Summary ---
Author Organization [facility] Address [address] [place] [address] Care Team Providers Care Apparel Manufacture Instructor Name Role Phone Khloe Fonseca [facility] Primary Care Provider [phone] Kristy Wilder MD Primary Care Pro vider Reason for Visit * Reason Onset Date Comments OTHER 12/24/2022 Encounter Details Date Type Department Care Team (Late Contact Info) Description 12/24/2022 Telephone [facility] [address] [place] [phone] Khloe Fonseca [address] Dept [place] [address] OTHER Social History Tobacco Use Types Packs/Day Years [...] * Telephone Encounter - Mariluz Patrick - 12/24/2022 1:51 PM EDT Tc from pt sister requesting for PCP to do an order for more hours on care. States she will be taking care of her. To clarify, please contact pt sister at [phone] documented in this encounter Plan of Treatment Upcoming Encounters Date Type Department Care Team (Late st Contact Info) Description 09/28/2024 1:30 PM EDT Office Visit [facility] [address] [place] [address] Kristy Wilder MD [address] [place], [place] [phone] 10/18/2024 11:00 AM EDT Telemedicine [facility] MED [facility] PEDS [address] [place] [address] Colette Diop, BRICE [address] [place] [address] documented as of this encounter Visit Diagnoses Not on filedocumented in this encounter Additional Health Concerns Assessment Noted Time PHQ-9 Depression Total Score: 11 022 1:16 PM EST documented as of this encounter Care Teams Apparel Manufacture Instructor Relationship Specialty Start Date End Date Khloe Fonseca FNP PCP - General Family Medicine 02/05/22 12/25/22 Kristy Wilder MD [address] [place] [address] PCP - General Internal Medicine 12/26/22 documented as of this encounter
--- OUTSIDE RECORDS SUMMARY | 2024-09-09 17:14 | XMS_ITS | Encounter Summary ---
Author Organization [employer] Address [address] [facility] 7t [place] [address] Care Team Providers Care Stave Machine Tender Name Role Phone Kristy Wilder MD Primary Care Pro vider Reason for Visit * Reason Onset Date Comments Disc Sander 09/04/2024 Encounter Details Date Type Department Care Team ([facility] Contact Info) Description 09/04/2024 Telephone [facility]S [address] [place], [place] [phone] Cris Pickett FNP [address] [place] [address] Disc Sander Social History Tobacco Use Types Packs/Day Years [...] encounter Miscellaneous Notes * Telephone Encounter - Marisol Juarez RN - 09/06/2024 10:04 AM EDT TC placed to pt with S steel chipper #[id number] to follow up on pt triage call as noted by Cris Pickett below. Pt confirms that she has been experiencing right arm heaviness, blurry vision in the right eye and a headache. The pt was advised at the time of this call to go to the ED for further evaluation but the pt refused. The pt denied any current chest pain, SOB, N/V or dizziness. The pt did endorse that she has been having some elevated blood pressure readings and elevated blood glucose. The ptwas unable to give any exact readings at the time of this call. Pt advised that her elevated blood pressure may be contributing to the headaches and the elevated blood glucose to the blurry vision. The pt was given the hours of operation for the [facility] at [facility] but the pt adamantly refused stating she is sick of umang pocked and prodded by needles . The pt wants to wait until seeing PCP on September 28. Pt given cautions on when to be seen if symptoms worsen before this appt. Pt agreeable to this information and will call back PRN. Disc Sander Provider Documentation: Received call from nurse triage service as an FYI from home health nurse. When home health nurse visited patient today, she initially reported right arm heaviness/weakness, blurry vision, headache x 3 days. Vital signs were stable. It was recommended that she proceed to the ED for further eval, butpatient refused. Will send as FYI to PCP, and request status check by team nurses next week. * Telephone Encounter - BELINDA Ansari - 09/04/2024 5:54 PM EDT Disc Sander Provider Documentation: Received call from nurse triage service as an FYI from home health nurse. When home health nurse visited patient today, she initially reported right arm heaviness/weakness, blurry vision, headache x 3 days. Vital signs were stable. It was recommended that she proceed to the ED for further eval, butpatient refused. Will send as FYI to PCP, and request status check by team nurses next week. documented in this encounter Plan of Treatment Upcoming Encounters Date Type Department Care Team (Late st Contact Info) Description 09/28/2024 1:30 PM EDT Office Visit [facility] [address] [place] [address] Kristy Wilder MD [address] [place] [address] 10/18/2024 11:00 AM EDT Telemedicine [facility] [address] [place] [address] Colette Diop, RN [address] [place] [address] documented as of this encounter Visit Diagnoses Not on filedocumented in this encounter Additional Health Concerns Assessment Noted Time PHQ-9 Depression Total Score: 4 10/31/19 24 1:38 PM EDT documented as of this encounter Care Teams Stave Machine Tender Relationship Specialty Start Date End Date Kristy Wilder MD [address] [place] [address] PCP - General Internal Medicine 12/26/22 documented as of this encounter
--- OUTSIDE RECORDS SUMMARY | 2024-09-09 17:14 | XMS_ITS | Referral Summary ---
Author Organization [facility] Address [address] [place] [address] Care Team Providers Care Detective Bowling Alley Name Role Phone Bryce Rufustaijuice Partha Primary Care Provider [phone] Allergies Active Allergy Reactions Criticality Noted Date [...] Date Resolved Date Renal mass 10/20/2018 06/10/2019 Social History Tobacco Use Types Packs/Day Years [...] 02/09/2019 12:00 PM EDT Plan of Treatment Not on file Medical Devices Implanted Type Area Fish Trapper Device Identifier Shelf Expiration Date Model / Serial / Lot System Closure Suture Medicated Perclose Proglide 6fr - [id number] Implanted:Qty: 1 on 02/04/2019 at [facility] Implant [employer] [id number] 73-03 / / Coil Embolization Neurovascular [place] 0.035in [id number] Tornado - [id number] Implanted:Qty: 1 on 02/04/2019 at [facility] Implant [employer] [id number] 10/11/19 23 [id number] / / [id number] Coil Embolization Neurovascular [place] 0.035in [id number] Tornado - [id number] Implanted:Qty: 1 on 02/04/2019 at [facility] Implant [employer] [id number] 08/03/19 24 [id number] / / [id number] Coil Embolization Neurovascular [place] 0.035in [id number] Tornado - [id number] Implanted:Qty: 1 on 02/04/2019 at [facility] Implant [employer] [id number] 08/03/19 [id number] / / [id number] Coil Embolization Neurovascular [place] 0.035in [id number] Justin - [id number] Implanted:Qty: 1 on 02/04/2019 at [facility] Implant [employer] [id number] 08/03/19 [id number] / / [id number] Insurance [place] [address] Care Teams Detective Bowling Alley Relationship Specialty Start Date End Date Davon Wu [address] [place] [address] PCP - General Internal Medicine 09/28/18
--- OUTSIDE RECORDS SUMMARY | 2024-09-09 17:14 | XMS_ITS | Clinical Summary ---
Author Organization [facility] Address [address] [place] [address] Phone Care Team Providers Care Intermediate Project Manager Name Role Phone Physician, No Pcp Primary Care Provider Unavaila ble Allergies Active Allergy Reactions Criticality Noted Date Comments Morphine 05/09/2024 Medications No known medications Active Problems No known active problems Social History Tobacco Use Types Packs/Day Years Used Date Smoking Tobacco: Never Assessed Comments Unknown Sex and Gender Information Value Date Recorded Sex Assigned at Not on file Legal Sex Female 6:15 PM EST Gender Identity Not on file Sexual Orientation Not on file Obstetrics History Last Filed Vital Signs Vital Sign Reading Time Taken Comments Blood Pressure 150/74 05/09/2024 2:38 PM EST Pulse 73 05/09/2024 2:38 PM EST Temperature 36.9 ??C (98.5 ??F) 05/09/2024 2:38 PM ES T Respiratory Rate 18 05/09/2024 2:38 PM EST Oxygen Saturation 99% 05/09/2024 2:38 PM EST Inhaled Oxygen Concentration - - Weight 64.2 kg (141 lb 9.6 oz) 05/09/2024 1:00 P M EST Height 167.6 cm (5' 6 ) 05/09/2024 1:00 PM EST Body Mass Index 22.85 05/09/2024 1:00 PM EST Plan of Treatment Health Maintenance Due Date Last Done Comments Breast Cancer Screening 1967 Diabetes: Annual Foot Exam 1977 Cervical Cancer Screening: Pap Smear 1988 Colorectal Cancer Screening: Colonoscopy 05/11/2022 Social Influencers of Health Screening 05/11/2022 COVID-19 Vaccine ( season) 2024 05/14/2022, 05/27/2021, 09/22/2020, Additional history exists Influenza Vaccine (#1) 2024 , 05/14/2022, 05/27/2021 Diabetes: Annual Urine Albumin-Creatinine Ratio (uACR) 05/09/2024 Diabetes: Blood Sugar Control Test (HGBA1C) 07/08/2024 01/06/2024 Depression Screening 10/30/2024 10/31/2023 Diabetes: Annual Retina Eye Exam 03/17/2025 03/17/2024 Diabetes: Annual GFR (Glomerular Filtration Rate) 05/09/2025 05/09/2024, 03/23/2024 Hypertension/CHF/CAD Annual BMP Blood Test 05/09/2025 05/09/2024, 03/23/2024 Cholesterol Screening (Lipid Panel) 12/18/2028 12/19/2023 DTaP,Tdap,and Td Vaccines (2 - Td or Tdap) 04/09/2029 04/09/2019 Zoster Vaccines Completed 12/31/2021, 09/06/2021 Pneumococcal Vaccine: 50+ Years Completed 03/11/2023, 04/09/2019 Pneumococcal Vaccine: Pediatrics (0 to 5 Years) and At-Risk Patients (6 to 64 Years) Completed 03/11/2023, 04/09/2019 HIV Screening Completed 07/23/2023 Hepatitis C Screening Completed 07/23/2023 Hepatitis B Vaccines Completed 03/02/2024, 08/29/2023, 08/01/2023 [...] on patient's age to complete this topic MMR Vaccines Aged Out No longer eligi ble based on patient's age to complete this topic Meningococcal ACWY Vaccine Aged Out N o longer eligible based on patient's age to complete this topic Meningococcal B Vacine Aged Out No lo nger eligible based on patient's age to complete this topic RSV Immunization Patients Under 20 months Aged Out No longer eligible based on patient's age to complete this topic Varicella Vaccines Aged Out No longer eligible based on patient's age to complete this topic Procedures Procedure Name Priority Date/Time Associated Diagnosis Comments COMPREHENSIVE METABOLIC PANEL STAT 05/09/2024 1:32 PM EST from Last 3 Months or Most Recently Relevant to Health Maintenance Results * Comprehensive metabolic panel (05/09/2024 1:32 PM EST) Sodium 143 133 - 145 mmol/L LAB CHEMISTRY METHOD 05/09/2024 2:[address] [facility] Potassium 4.1 3.5 - 5.5 mmol/L LAB CHEMISTRY METHOD 05/09/2024 2:[address] [facility] Chloride 107 96 - 110 mmol/L LAB CHEMISTRY METHOD 05/09/2024 2:[address] [facility] CO2 32 21 - 32 mmol/L LAB CHEMISTRY METHOD 05/09/2024 2:[address] [facility] Anion Gap 4 3 - 11 LAB CHEMISTRY METHOD 05/09/2024 2:[address] [facility] Glucose 94 70 - 100 mg/dL LAB CHEMISTRY METHOD 05/09/2024 2:[address] [facility] BUN 13 5 - 25 mg/dL LAB CHEMISTRY METHOD 05/09/2024 2:[address] [facility] Creatinine 0.79 0.50 - 1.10 mg/dL LAB CHEMISTRY METHOD 05/09/2024 2:[address] [facility] eGFR 87 >=60 mL/min/1. 73m2 LAB CHEMISTRY METHOD 05/09/2024 2:[address] [facility] Comment:Calculation based on the??Chronic Kidney Disease Epidemiology Collaboration (CKD-EPI) equation refit??without adjustment for race. BUN/Creatinine Ratio 16.5 LAB CHEMISTRY METHOD 05/09/2024 2:[address] [facility] Calcium 9.5 8.5 - 10.5 mg/dL LAB CHEMISTRY METHOD 05/09/2024 2:[address] [facility] AST (SGOT) 23 10 - 42 unit/L LAB CHEMISTRY METHOD 05/09/2024 2:[address] [facility] ALT (SGPT) 31 10 - 60 unit/L LAB CHEMISTRY METHOD 05/09/2024 2:[address] [facility] Alkaline Phosphatase 91 42 - 121 unit/L LAB CHEMISTRY METHOD 05/09/2024 2:[address] [facility] Total Protein 6.6 6.0 - 8.0 g/dL LAB CHEMISTRY METHOD 05/09/2024 2:[address] [facility] Albumin 3.5 3.2 - 5.0 g/dL LAB CHEMISTRY METHOD 05/09/2024 2:[address] [facility] Total Bilirubin 0.8 0.0 - 1.4 mg/dL LAB CHEMISTRY METHOD 05/09/2024 2:[address] [facility] Blood Venous blood specimen / Unknown Venipuncture / Unknown 05/09/2024 1:32 PM EST 05/09/2024 1:57 PM EST us Bryson Sinha MD LAB BLOOD ORDERABLES Final Result [facility] [address] [place] [address], from Last 3 Months or Most Recently Relevant to Health Maintenance Insurance MEDICAID - [place] Care Teams Intermediate Project Manager Relationship Specialty Start Date End Date Physician, No Pcp PCP - General 05/09/24
--- OUTSIDE RECORDS SUMMARY | 2024-09-09 17:14 | XMS_ITS | Encounter Summary ---
Author Organization [employer] Address [address] [facility] [address] [place] [address] Care Team Providers Care Marketing Content Manager Name Role Phone Kristy Wilder MD Primary Care Pro vider Reason for Visit * Reason Onset Date Comments Med Refill RMV Placard 02/11/2023 I called the pt regarding an application, for a disabled parking placard. She stated that she drives, and she does not use any assistive devices, such as a cane or walker. She requested to be called, when the application is ready to be picked up. Encounter Details Date Type Department Care Team (Late st Contact Info) Description 02/11/2023 Refill [facility] [address] [place] [address] Kristy Wilder MD [address] [place], [place] [phone] Primary insomnia; Chronic low back pain, unspecified back pain laterality, unspecified whether sciatica present Social History Tobacco Use Types Packs/Day Years [...] encounter Miscellaneous Notes * Telephone Encounter - Soledad Cobian [place] - 02/18/2023 1:48 PM EDT I called the pt regarding an application, for a disabled parking placard. She stated that she drives, and she does not use any assistive devices, such as a cane or walker. She requested to be called,when the application is ready to be picked up. documented in this encounter Plan of Treatment Upcoming Encounters Date Type Department Care Team (Late st Contact Info) Description 09/28/2024 1:30 PM EDT Office Visit [facility] [address] [place] [address] Kristy Wiledr MD [address] [place] [address] 10/18/2024 11:00 AM EDT Telemedicine [facility] [address] [place], [place] [phone] Colette Diop, BRICE [address] [place], [place] [phone] documented as of this encounter Visit Diagnoses Diagnosis Primary insomnia Persistent disorder of initiating or maintaining sleep Chronic low back pain, unspecified back pain laterality, unspecified whether sciatica present documented in this encounter Additional Health Concerns Assessment Noted Time PHQ-9 Depression Total Score: 11 022 1:16 PM EST documented as of this encounter Care Teams Marketing Content Manager Relationship Specialty Start Date End Date Kristy Wilder MD [address] [place] [phone] PCP - General Internal Medicine 12/26/22 documented as of this encounter
--- OUTSIDE RECORDS SUMMARY | 2024-09-09 17:14 | XMS_ITS | Encounter Summary ---
Author Organization [employer] Address [address] [facility] 7t [place] [address] Care Team Providers Care Chemist Physical Name Role Phone Kristy Wilder MD Primary Care Pro vider Reason for Visit * Reason Comments Med Refill Encounter Details Date Type Department Care Team ([facility] st Contact Info) Description 09/10/2023 Refill [facility] [address] [place], [place] [phone] Kristy Wilder MD [address] [place], [place] [phone] Type 2 diabetes mellitus with diabetic polyneuropathy, without long-term current use of insulin ([facility]) Social History Tobacco Use Types Packs/Day Years Used Date Smoking Tobacco: Never Passive Smoke Exposure: Never Smokeless Tobacco: Never Alcohol Use Standard Drinks/Week Comments Never 0 (1 standard drink = 0.6 oz pur e alcohol) Depression Answer Date Recorded Patient Health Questionnaire-9 Score 16 03/11/2023 Housing Stability Answer Date Recorded What is your housing situation today? I have kenton leighann 06/19/[address] you li [...] Description 09/28/2024 1:30 PM EDT Office Visit [facility] [address] [place], [place] [phone] Kristy Wilder MD [address] [place] [address] 10/18/2024 11:00 AM EDT Telemedicine [facility] [address] [place], [place] [phone] Colette Diop, BRICE [address] [place] [address] documented as of this encounter Visit Diagnoses Diagnosis Type 2 diabetes mellitus with diabetic polyneuropathy, without long-term current use of insulin ([facility]) documented in this encounter Additional Health Concerns Assessment Noted Time PHQ-9 Depression Total Score: 16 023 11:20 AM EDT documented as of this encounter Care Teams Chemist Physical Relationship Specialty Start Date End Date Kristy Wilder MD [address] [place] [phone] PCP - General Internal Medicine 12/26/22 documented as of this encounter
--- OUTSIDE RECORDS SUMMARY | 2024-09-09 17:14 | XMS_ITS | Encounter Summary ---
Author Organization [employer] [facility] Address [address] [place] [address] Care Team Providers Care Blast Furnace Blower Name Role Phone Khloe Fonseca [facility] Primary Care Provider [phone] Kristy Wilder MD Primary Care Pro vider Encounter Details Date Type Department Care Team (Late Contact Info) Description 12/09/2022 Abstract [facility] [address] [place] [address] Khloe Fonseca FNP [address] [place] [address] Dept [place] [address] Social History Tobacco Use Types Packs/Day Years [...] Encounters Date Type Department Care Team (Late Contact Info) Description 09/28/2024 1:30 PM EDT Office Visit [facility] [address] [place] [address] Kristy Wilder MD [address] [place], [place] [phone] 10/18/2024 11:00 AM EDT Telemedicine [facility] [address] [place] [address] Colette Diop, BRICE [address] [place] [address] documented as of this encounter Visit Diagnoses Not on filedocumented in this encounter Additional Health Concerns Assessment Noted Time PHQ-9 Depression Total Score: 11 022 1:16 PM EST documented as of this encounter Care Teams Blast Furnace Blower Relationship Specialty Start Date End Date Khloe Fonseca FNP PCP - General Family Medicine 02/05/22 12/25/22 Kristy Wilder MD [address] [place] [address] PCP - General Internal Medicine 12/26/22 documented as of this encounter
[2024-09-09 17:15] LABS: INTERNATIONAL NORM RATIO 1.1 (0.9-1.1); Prothrombin Time 13.2 SEC (10.9-12.4)
[2024-09-09 17:25] LABS: Alanine Aminotransferase 56 U/L (0-31); Albumin Level 3.8 g/dL (3.5-5.0); Alkaline Phosphatase 99 U/L (39-117); Anion Gap 10 (12-20); Aspartate Amino Transferase 41 U/L (5-31); Bilirubin Direct 0.1 mg/dL (0.0-0.5); Bilirubin Total 0.3 mg/dL (0.0-1.0); Blood Urea Nitrogen 18 mg/dL (9-16); Calcium 8.7 mg/dL (8.4-10.2); Carbon Dioxide 27 mmol/L (22-29); Chloride 110 mmol/L (96-108); Estimated Glomerular Filt Rate > 60; Glucose Random 102 mg/dL (60-115); Magnesium 1.8 mg/dL (1.6-2.6); Potassium 4.4 mmol/L (3.3-5.1); Sodium 143 mmol/L (135-145); Total Protein 6.3 g/dL (6.5-8.0)
[2024-09-09 17:30] LABS: Troponin-I High Sensitivity < 2.7 ng/L (<3.5-17.0)
[2024-09-09 17:47] LABS: Influenza A PCR NEGATIVE (Negative); Influenza B PCR NEGATIVE (Negative); Resp Syncy Virus RNA Qual PCR NEGATIVE (Negative); SARS COV2 PCR INHOUSE NEGATIVE (Negative)
[2024-09-09] MEDS: iohexoL 350 MG/ML 100 ML INFUS..BTL IV (18:03)
[2024-09-09] MEDS: Acetaminophen 1,000 MG/100 ML PIGGYBACK 400 MG IV (18:11)
[2024-09-09 19:03] VITALS: BP 168/84; PULSE 61; RESP 16; TEMP 36.6; O2SAT 95
--- NOTE | 2024-09-09 19:09 | PC.NURSE ---
dr hong notified pt BP elevated during d/c vital assessment
== END 2024-09-09 19:08 | disposition home or self-care (01) ==
PROVIDERS: Emergency Provider Emergency Medicine; PCP Student in an Organized Health Care Education/Training Program
DX: G81.91 Hemiplegia, unspecified affecting right dominant side (principal); R51.9 Headache, unspecified; R29.703 NIHSS score 3; C64.1 Malignant neoplasm of right kidney, except renal pelvis; C78.00 Secondary malignant neoplasm of unspecified lung; Z79.02 Long term (current) use of antithrombotics/antiplatelets; Z79.01 Long term (current) use of anticoagulants; Z79.899 Other long term (current) drug therapy; Z03.818 Encounter for observation for suspected exposure to other biological agents ruled out
CPT/HCPCS: 0241U; 70496; 70498; 80048; 80076; 83735; 84484; 85025; 85610; 93005; 96374; 96375; 99284; J0131; J1100; Q9967

== ENCOUNTER → 2024-09-09 16:15 | Outpatient (BNV) | payer MEDICAID, SELFPAY | PROVIDERS: Emergency Provider Emergency Medicine; PCP Student in an Organized Health Care Education/Training Program; Visit Provider Internal Medicine | DX: R00.1 Bradycardia, unspecified (principal) | CPT/HCPCS: 93010 ==

== ENCOUNTER → 2024-09-09 16:15 | Outpatient (BNV) | payer MEDICAID, SELFPAY | PROVIDERS: Emergency Provider Emergency Medicine; PCP Student in an Organized Health Care Education/Training Program; Visit Provider Radiology Diagnostic Radiology | DX: M54.2 Cervicalgia (principal); R51.9 Headache, unspecified | CPT/HCPCS: 70496; 70498 ==

== ENCOUNTER 2024-09-17 10:04 | Emergency (ER) | payer MEDICAID, SELFPAY ==
--- NOTE | 2024-09-17 | ECG_ITS ---
Test Reason : htn Blood Pressure : */* mmHG Vent. Rate : 68 BPM Atrial Rate : 68 BPM P-R Int : 158 ms QRS Dur : 80 ms QT Int : 404 ms P-R-T Axes : 37 27 14 degrees QTcB Int : 429 ms Normal sinus rhythm Normal ECG When compared with ECG of 09-Sep-2024 16:55, No significant change was found Referred By: Generic ED Physician Electronically Signed By: Matt Giordano
--- NOTE | ~2024-09-17 | CT_ITS ---
EXAMINATION: CT HEAD WITHOUT IV CONTRAST HISTORY: BURKS, blurry vision. HTN. TECHNIQUE: Unenhanced helical CT of the head was performed per standard departmental protocol. Coronal and sagittal reformats of the head were also evaluated. One or more of the following techniques was used for dose reduction: Automated exposure control, adjustment of the mA and/or kV according to patient size, use of iterative reconstruction technique. DLP: 715 mGy-cm COMPARISON: There are comparison is made with the prior examination dated 09/09/2024. FINDINGS: BRAIN: The brain parenchyma is unremarkable. There is normal maldonado/white differentiation. The ventricular system is normal in size and configuration. There is no mass effect or midline shift. No intra- or extra-axial fluid collections are identified. SINUSES: The visualized paranasal sinuses are clear. The mastoid air cells and middle ear cavities are well pneumatized. ORBITS: The visualized orbits are unremarkable. BONES/SOFT TISSUES: The extracranial soft tissues are unremarkable. The calvarium is intact. No suspicious lytic or sclerotic lesions. CT/CT head/brain wo IV con IMPRESSION: No acute intracranial abnormality. Electronically signed by: Gabo Miller MD 09/17/2024 02:27 PM EDT
[2024-09-17 10:11] VITALS: BP 149/91; PULSE 73; RESP 18; TEMP 37; O2SAT 97; BMI 30.9
[2024-09-17 10:35] LABS: MANUAL DIFF FLAG NO
[2024-09-17 10:38] LABS: Basophils Percent Auto 0.4 % (0-2); Eosinophils Absolute Auto 0.2 X10*3/uL (0.0-0.4); Eosinophils Percent Auto 3.1 % (0-4); Hematocrit 39.9 % (37.0-47.0); Hemoglobin 13.7 g/dl (12.0-16.0); Imm Gran Abs Auto 0.01 X10*3/uL (0.00-0.03); Imm Gran Pct Auto 0.2 % (0.0-0.4); Lymphocytes Absolute Auto 1.7 X10*3/uL (1.2-4.9); Lymphocytes Percent Auto 32.3 % (20-40); Mean Corpuscular HGB Conc 34.3 g/dl (31.0-35.0); Mean Corpuscular Hemoglobin 29.5 pg (27.0-33.0); Mean Corpuscular Volume 85.8 fL (80.0-98.0); Mean Platelet Volume 9.6 fL (9.4-12.3); Monocytes Absolute Auto 0.3 X10*3/uL (0.1-1.2); Monocytes Percent Auto 5.4 % (2-11); Neutrophils Percent Auto 58.6 % (45-73); Platelet Count 188 X10*3/uL (160-400); Red Blood Count 4.65 X10*6/uL (4.20-5.50); White Blood Count 5.1 X10*3/uL (4.8-10.8)
[2024-09-17 10:50] LABS: Appearance Urine Clear; Color Urine Yellow; Glucose Urine UA Negative (Negative); Leukocyte Esterase Urine Large (3+) (Negative); Nitrite Urine Negative (Negative); PH 5.5 (5.0-9.0); Specific Gravity - Urine 1.015 (1.005-1.025); UMIC TRIGGER UACC YES; Urine Blood Negative (Negative); Urine Ketones Negative (Negative); Urine Protein Negative (Neg-Trace)
[2024-09-17 10:53] LABS: Albumin Level 3.9 g/dL (3.5-5.0); Alkaline Phosphatase 102 U/L (39-117); Anion Gap 10 (12-20); Aspartate Amino Transferase 50 U/L (5-31); Bilirubin Total 0.4 mg/dL (0.0-1.0); Blood Urea Nitrogen 14 mg/dL (9-16); Calcium 9.1 mg/dL (8.4-10.2); Carbon Dioxide 27 mmol/L (22-29); Chloride 109 mmol/L (96-108); Creatinine Clr Calc Pharmacy 87.1; Estimated Glomerular Filt Rate > 60; Glucose Random 105 mg/dL (60-115); Potassium 4.2 mmol/L (3.3-5.1); Sodium 142 mmol/L (135-145); Total Protein 6.9 g/dL (6.5-8.0)
[2024-09-17 10:53] LABS: Bacteria Urine None Seen (None Seen); Hyaline Casts Urine 0-2 /LPF (0-2); RBC Urine 0-2 /HPF (0-2); UACC Culture Trigger YES; WBC Urine 21-50 /HPF (0-5)
[2024-09-17 11:03] LABS: Alanine Aminotransferase 70 U/L (0-31)
[2024-09-17 11:14] LABS: Influenza A PCR NEGATIVE (Negative); Influenza B PCR NEGATIVE (Negative); Resp Syncy Virus RNA Qual PCR NEGATIVE (Negative); SARS COV2 PCR INHOUSE NEGATIVE (Negative)
[2024-09-17 12:38] VITALS: BP 160/77; PULSE 64; RESP 16; TEMP 36.3; O2SAT 99
--- OUTSIDE RECORDS SUMMARY | 2024-09-17 13:17 | XMS_ITS | Encounter Summary ---
Author Organization [employer] Address [address] [place] [address] Care Team Providers Care Transport Analyst Name Role Phone Khloe Fonseca [facility] Primary Care Provider [phone] Kristy iWlder MD Primary Care Pro vider Reason for Visit * Reason Onset Date Comments pt1 10/03/2022 Encounter Details Date Type Department Care Team (Late st Contact Info) Description 10/03/2022 Telephone [facility] [address] [place] [phone] Khloe Fonseca [address] Dept [place] [address] pt1 Social History Tobacco Use Types Packs/Day [...] oct 07 2022 Time: 2:30 pm address: [address] [place] [address] [address], [place] [address] specialty: # visits: senior restaurant manager: no Wheelchair: no Date:10/23/22 Time:02 pm address: [facility] specialty: PCP # visits: senior restaurant manager: no Wheelchair: no Date:11/07/22 Time: 1:30 address: [facility] specialty: PCP # visits: senior restaurant manager: no Wheelchair:no documented in this encounter Plan of Treatment Upcoming Encounters Date Type Department Care Team (Late st Contact Info) Description 09/28/2024 1:30 PM EDT Office Visit [facility] [address] [place] [address] Kristy Wilder MD [address] [place] [address] 10/18/2024 11:00 AM EDT Telemedicine [facility] [address] [place], [place] [phone] Colette Diop RN [address] [place], [place] [phone] documented as of this encounter Visit Diagnoses Not on filedocumented in this encounter Additional Health Concerns Assessment Noted Time PHQ-9 Depression Total Score: 11 022 1:16 PM EST documented as of this encounter Care Teams Transport Analyst Relationship Specialty Start Date End Date Khloe Fonseca FNP PCP - General Family Medicine 02/05/22 12/25/22 Kristy Wilder MD [address] [place] [address] PCP - General Internal Medicine 12/26/22 documented as of this encounter
--- OUTSIDE RECORDS SUMMARY | 2024-09-17 13:17 | XMS_ITS | Encounter Summary ---
Author Organization [employer] Address [address] [facility] [address] [place] [address] Care Team Providers Care Motorboat Operator Name Role Phone Kristy Wilder MD Primary Care Pro vider Reason for Visit * Reason Comments Med Refill Encounter Details Date Type Department Care Team ([facility] st Contact Info) Description 09/25/2023 Refill [facility] [address] [place], [place] [phone] Kristy Wilder MD [address] [place], [place] [phone] Primary insomnia Social History Tobacco Use Types Packs/Day Years Used Date Smoking Tobacco: Never Passive Smoke Exposure: Never Smokeless Tobacco: Never Alcohol Use Standard Drinks/Week Comments Never 0 (1 standard drink = 0.6 oz pur e alcohol) Depression Answer Date Recorded Patient Health Questionnaire-9 Score 16 03/11/2023 Housing Stability Answer Date Recorded What is your housing situation today? I have kentonjdae lawton 06/19/[address] you [...] Description 09/28/2024 1:30 PM EDT Office Visit [facility] [address] [place] [address] Kristy Wilder MD [address] [place] [address] 10/18/2024 11:00 AM EDT Telemedicine [facility] [address] [place], [place] [phone] Colette Diop, BRICE [address] [place] [address] documented as of this encounter Visit Diagnoses Diagnosis Primary insomnia Persistent disorder of initiating or maintaining sleep documented in this encounter Additional Health Concerns Assessment Noted Time PHQ-9 Depression Total Score: 16 023 11:20 AM EDT documented as of this encounter Care Teams Motorboat Operator Relationship Specialty Start Date End Date Kristy Wilder MD [address] [place] [address] PCP - General Internal Medicine 12/26/22 documented as of this encounter
--- OUTSIDE RECORDS SUMMARY | 2024-09-17 13:17 | XMS_ITS | Encounter Summary ---
Author Organization [employer] Address [address] [facility] 7t [place] [address] Care Team Providers Care Community Service Director Name Role Phone Kristy Wilder MD Primary Care Pro vider Reason for Visit * Reason Comments Med Refill Encounter Details Date Type Department Care Team ([facility] st Contact Info) Description 09/10/2023 Refill [facility] [address] [place], [place] [phone] Kristy Wilder MD [address] [place], [place] [phone] Type 2 diabetes mellitus with diabetic polyneuropathy, without long-term current use of insulin ([facility]) Social History Tobacco Use Types Packs/Day [...] Description 09/28/2024 1:30 PM EDT Office Visit [facility] [address] [place], [place] [phone] Kristy Wilder MD [address] [place] [address] 10/18/2024 11:00 AM EDT Telemedicine [facility] [address] [place], [place] [phone] Colette Diop, BRICE [address] [place] [address] documented as of this encounter Visit Diagnoses Diagnosis Type 2 diabetes mellitus with diabetic polyneuropathy, without long-term current use of insulin ([facility]) documented in this encounter Additional Health Concerns Assessment Noted Time PHQ-9 Depression Total Score: 16 023 11:20 AM EDT documented as of this encounter Care Teams Community Service Director Relationship Specialty Start Date End Date Kristy Wilder MD [address] [place] [address] PCP - General Internal Medicine 12/26/22 documented as of this encounter
--- OUTSIDE RECORDS SUMMARY | 2024-09-17 13:17 | XMS_ITS | Encounter Summary ---
Author Organization [employer] Address [address] [facility] [address] [place] [address] Care Team Providers Care Moisture Tester Name Role Phone Kristy Wilder MD Primary [...] (Late st Contact Info) Description 02/11/2023 Refill [facility] [address] [place] [address] Kristy Wilder MD [address] [place], [place] [phone] Primary insomnia; Chronic low back pain, unspecified [...] Description 09/28/2024 1:30 PM EDT Office Visit [facility] [address] [place] [address] Kristy Wilder MD [address] [place] [address] 10/18/2024 11:00 AM EDT Telemedicine [facility] [address] [place], [place] [phone] Colette Diop, BRICE [address] [place], [place] [phone] documented as of this encounter Visit Diagnoses Diagnosis Primary insomnia Persistent disorder of initiating or maintaining sleep Chronic low back pain, unspecified back pain laterality, unspecified whether sciatica present documented in this encounter Additional Health Concerns Assessment Noted Time PHQ-9 Depression Total Score: 11 022 1:16 PM EST documented as of this encounter Care Teams Moisture Tester Relationship Specialty Start Date End Date Kristy Wilder MD [address] [place] [address] PCP - General Internal Medicine 12/26/22 documented as of this encounter
--- OUTSIDE RECORDS SUMMARY | 2024-09-17 13:17 | XMS_ITS | Encounter Summary ---
Author Organization [facility] Address [address] [place] [address] Care Team Providers Care Gear Room Keeper Name Role Phone Davon Wu Primary Care Provider [phone] Encounter Details Date Type Department Care Team (Late st Contact Info) Description 10/31/2020 Orders Only [facility]Ray [address] [place], [place] [phone] Winifred Winston MD [address] [place], [place] [phone] Social History Tobacco Use Types Packs/Day Years [...] on filedocumented in this encounter Care Teams Gear Room Keeper Relationship Specialty Start Date End Date Davon Wu [address] [place] [address] PCP - General Internal Medicine 09/28/18 documented as of this encounter
--- OUTSIDE RECORDS SUMMARY | 2024-09-17 13:17 | XMS_ITS | Encounter Summary ---
Author Organization [employer] Address 75 [facility] 7t [place] [address] Care Team Providers Care Health Care Sanitary Technician Name Role Phone Kristy Wilder MD Primary Care Pro vider Reason for Visit * Reason Comments Med Refill Encounter Details Date Type Department Care Team ([facility] st Contact Info) Description 05/15/2023 Refill [facility] MEDICINE [address] [place], [place] [phone] Evelina Freeman MD 230 [place], [place] [phone] Social History Tobacco Use Types Packs/Day Years [...] Office Visit [facility] MEDICINE [address] [place] [address] Kristy Wilder MD [address] [place] [address] 10/18/2024 11:00 AM EDT Telemedicine [facility] CHC MED & PEDS 505 [place], [place] [phone] Colette Diop, BRICE 505 [place] [address] documented as of this encounter Visit Diagnoses Not on filedocumented in this encounter Additional Health Concerns Assessment Noted Time PHQ-9 Depression Total Score: 16 023 11:20 AM EDT documented as of this encounter Care Teams Health Care Sanitary Technician Relationship Specialty Start Date End Date Kristy Wilder MD 230 [place], [place] [phone] PCP - General Internal Medicine 12/26/22 documented as of this encounter
--- OUTSIDE RECORDS SUMMARY | 2024-09-17 13:17 | XMS_ITS | Encounter Summary ---
Author Organization [employer] Address 75 [facility] 7t [place] [address] Care Team Providers Care Block Layer Name Role Phone Kristy Wilder MD Primary Care Pro vider Reason for Visit * Reason Onset Date Comments Nurse Triage 08/08/2023 Encounter Details Date Type Department Care Team ([facility] st Contact Info) Description 08/08/2023 Telephone [facility] MEDICINE 230 [place], [place] [phone] Kristy Wilder MD 230 [place], [place] [phone] Nurse Triage Social History Tobacco Use Types [...] EST Triage call returned to patient with [employer] Tech [id number]. Patient with soft voice and weakness. Received [...] to access 911 EMS for transport to [facility] ED ( followed by Oncologist) there. PCP [...] accepted this outcome Please contact pt at [phone] (Romansh) documented in this encounter Plan of Treatment Upcoming Encounters Date Type Department Care Team (Late st Contact Info) Description 09/28/2024 1:30 PM EDT Office Visit [facility] MEDICINE [address] [place] [address] Kristy Wilder MD [address] [place] [address] 10/18/2024 11:00 AM EDT Telemedicine [facility] CH[facility] MED & PEDS 505 [place], [place] [phone] Colette Diop, BRICE 505 [place], [place] [phone] documented as of this encounter Visit Diagnoses Not on filedocumented in this encounter Additional Health Concerns Assessment Noted Time PHQ-9 Depression Total Score: 16 023 11:20 AM EDT documented as of this encounter Care Teams Block Layer Relationship Specialty Start Date End Date Kristy Wilder MD [address] [place] [address] PCP - General Internal Medicine 12/26/22 documented as of this encounter
--- OUTSIDE RECORDS SUMMARY | 2024-09-17 13:17 | XMS_ITS | Encounter Summary ---
Author Organization [address] [employer] [facility] Address [address] [place] [address] Care Team Providers Care Stuffing Machine Operator Name Role Phone Khloe Fonseca [facility] Primary Care Provider +1- [phone] Kristy Wilder MD Primary Care Pro vider Reason for Visit * Reason Onset Date Comments OTHER 12/24/2022 Encounter Details Date Type Department Care Team (Late Contact Info) Description 12/24/2022 Telephone [facility] MEDICINE [address] [place] [address] [phone] Khloe Fonseca [address] [place] [address] OTHER Social History Tobacco Use Types Packs/Day [...] To clarify, please contact pt sister at [phone] documented in this encounter Plan of Treatment Upcoming Encounters Date Type Department Care Team (Late st Contact Info) Description 09/28/2024 1:30 PM EDT Office Visit [facility] MEDICINE [address] [place] [address] Kristy Wilder MD 230 [place], [place] [phone] 10/18/2024 11:00 AM EDT Telemedicine [facility] CHC MED & PEDS 505 [place] [address] Colette Diop, BRICE 505 [place] [address] documented as of this encounter Visit Diagnoses Not on filedocumented in this encounter Additional Health Concerns Assessment Noted Time PHQ-9 Depression Total Score: 11 022 1:16 PM EST documented as of this encounter Care Teams Stuffing Machine Operator Relationship Specialty Start Date End Date Khloe Fonseca FNP PCP - General Family Medicine 02/05/22 12/25/22 Kristy Wilder MD 230 [place] [address] PCP - General Internal Medicine 12/26/22 documented as of this encounter
--- OUTSIDE RECORDS SUMMARY | 2024-09-17 13:17 | XMS_ITS | Encounter Summary ---
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 Please contact pt at [phone] (Slovak) documented in this encounter Plan of Treatment Upcoming Encounters Date Type Department Care Team (Late st Contact Info) Description 09/28/2024 1:30 PM EDT Office Visit [facility] MEDICINE 230 [place] [address] Kristy Wilder MD 230 [place] [address] 10/18/2024 11:00 AM EDT Telemedicine [facility] CHC MED & PEDS 505 [place] [address] Colette Diop, RN 505 [place] [address] documented as of this encounter Visit Diagnoses Not on filedocumented in this encounter Additional Health Concerns Assessment Noted Time PHQ-9 Depression Total Score: 16 023 11:20 AM EDT documented as of this encounter Care Teams Commissary Manager Relationship Specialty Start Date End Date Kristy Wilder MD [address] [place] [address] PCP - General Internal Medicine 12/26/22 documented as of this encounter
--- OUTSIDE RECORDS SUMMARY | 2024-09-17 13:17 | XMS_ITS | Encounter Summary ---
Author Organization [employer] [facility] Address [address] [place] [address] Care Team Providers Care Dial Maker Name Role Phone Khloe Fonseca [facility] Primary Care Provider +1- [phone] Kristy Wilder MD Primary Care Pro vider Encounter Details Date Type Department Care Team (Late Contact Info) Description 12/09/2022 Abstract [facility] MEDICINE 230 [place] [address] Khloe Fonseca FNP [address] [place] [address] Dept [place] [address] Social History Tobacco Use Types Packs/Day Years [...] 1:30 PM EDT Office Visit [facility] MEDICINE 230 [place] [address] Kristy Wilder MD 230 [place], [place] [phone] 10/18/2024 11:00 AM EDT Telemedicine [facility] CHC MED & PEDS 505 [place] [address] Colette Diop, BRICE 505 [place] [address] documented as of this encounter Visit Diagnoses Not on filedocumented in this encounter Additional Health Concerns Assessment Noted Time PHQ-9 Depression Total Score: 11 022 1:16 PM EST documented as of this encounter Care Teams Dial Maker Relationship Specialty Start Date End Date Khloe Fonseca FNP PCP - General Family Medicine 02/05/22 12/25/22 Kristy Wilder MD [address] [place] [address] PCP - General Internal Medicine 12/26/22 documented as of this encounter
--- OUTSIDE RECORDS SUMMARY | 2024-09-17 13:17 | XMS_ITS | Encounter Summary ---
Author Organization [employer] Address [address] [address] Care Team Providers Care Industrial Relations Commissioner Name Role Phone Kristy Wilder MD Primary Care Pro vider Reason for Visit * Reason Onset Date Comments Letter for School/Work 12/26/2022 Encounter Details Date Type Department Care Team ([facility] st Contact Info) Description 12/26/2022 Telephone [facility] MEDICINE 230 [place], [place] [phone] Kristy Wilder MD 230 [place] [address] Letter for School/Work Social History Tobacco Use [...] release. Thank you. * Telephone Encounter - Mariluzkatie Patrick - 12/26/2022 3:09 PM EDT Tc from gerardo requesting for PCP to make a letter for ULTRASONIC SEAMING MACHINE OPERATOR hours and dx on letter to be faxed to [phone] documented in this encounter Plan of Treatment Upcoming Encounters Date Type Department Care Team (Late st Contact Info) Description 09/28/2024 1:30 PM EDT Office Visit [facility] MEDICINE 230 [place] [address] Kristy Wilder MD [address] [place] [address] 10/18/2024 11:00 AM EDT Telemedicine [facility] CHC MED & PEDS 505 [place], [place] [phone] Colette Diop, BRICE 505 [place], [place] [phone] documented as of this encounter Visit Diagnoses Not on filedocumented in this encounter Additional Health Concerns Assessment Noted Time PHQ-9 Depression Total Score: 11 022 1:16 PM EST documented as of this encounter Care Teams Industrial Relations Commissioner Relationship Specialty Start Date End Date Kristy Wilder MD [address] [place] [address] PCP - General Internal Medicine 12/26/22 documented as of this encounter
--- OUTSIDE RECORDS SUMMARY | 2024-09-17 13:17 | XMS_ITS | Encounter Summary ---
Author Organization [employer] Address [address] [place] [address] Care Team Providers Care Superintendent Recreation Name Role Phone Khloe Fonseca CUSTOMER RELATIONS CONSULTANT Primary Care Provider +1- [phone] Kristy Wilder MD Primary Care Pro vider Reason for Visit * Reason Onset Date Comments Med Refill [facility] order 08/25/2022 Order # [id number] Encounter Details Date Type Department Care Team (Late st Contact Info) Description 08/25/2022 Refill [facility] MEDICINE 230 [place] [address] Khloe Fonseca [address] Dept [place] [address] Type 2 diabetes mellitus without complication, without long-term current use of insulin ([facility]) Social History Tobacco Use Types Packs/Day Years [...] Description 09/28/2024 1:30 PM EDT Office Visit [facility] MEDICINE 230 [place] [address] Kristy Wilder MD 230 [place], [place] [phone] 10/18/2024 11:00 AM EDT Telemedicine [facility] CHC MED & PEDS 505 [place], [place] [phone] Colette Diop RN 505 [place], [place] [phone] documented as of this encounter Visit Diagnoses Diagnosis Type 2 diabetes mellitus without complication, without long-term current use of insulin ([facility]) documented in this encounter Additional Health Concerns Assessment Noted Time PHQ-9 Depression Total Score: 11 022 1:16 PM EST documented as of this encounter Care Teams Superintendent Recreation Relationship Specialty Start Date End Date Khloe Fonseca FNP PCP - General Family Medicine 02/05/22 12/25/22 Kristy Wilder MD [address] [place] [address] PCP - General Internal Medicine 12/26/22 documented as of this encounter
--- OUTSIDE RECORDS SUMMARY | 2024-09-17 13:17 | XMS_ITS | Encounter Summary ---
Author Organization [employer] Address 75 [facility] 7t [place] [address] Care Team Providers Care Gas Plant Worker Name Role Phone Kristy Wildre MD Primary Care Pro vider Reason for Visit * Reason Onset Date Comments PT-1 08/03/2024 Encounter Details Date Type Department Care Team ([facility] st Contact Info) Description 08/03/[address] [facility] MEDICINE 230 [place], [place] [phone] Kristy Wilder MD 230 [place], [place] [phone] PT-1 Social History Tobacco Use Types Packs/Day [...] Y/N: Yes Provider name or facility name: [facility] Facility Address: [address] [place] [address] Escort needed: Y/N: No Do you have a wheelchair: Y/N: No If yes- Manual or electric: N/A Visits: Twice monthly documented in this encounter Plan of Treatment Upcoming Encounters Date Type Department Care Team (Late st Contact Info) Description 09/28/2024 1:30 PM EDT Office Visit [facility] MEDICINE [address] [place] [address] Kristy Wilder MD [address] [place] [address] 10/18/2024 11:00 AM EDT Telemedicine [facility] CHC MED & PEDS 505 [place] [address] Colette Diop RN 505 [place] [address] documented as of this encounter Visit Diagnoses Not on filedocumented in this encounter Additional Health Concerns Assessment Noted Time PHQ-9 Depression Total Score: 4 10/31/19 24 1:38 PM EDT documented as of this encounter Care Teams Gas Plant Worker Relationship Specialty Start Date End Date Kristy Wilder MD [address] [place] [address] PCP - General Internal Medicine 12/26/22 documented as of this encounter
--- OUTSIDE RECORDS SUMMARY | 2024-09-17 13:17 | XMS_ITS | Encounter Summary ---
Author Organization [employer] Address [address] [place] [address] Care Team Providers Care Cloth Mercerizer Back Tender Name Role Phone Khloe Fonseca [facility] Primary Care Provider +1- [phone] Kristy Wilder MD Primary Care Pro vider Reason for Visit * Reason Onset Date Comments pt1 10/16/2022 Encounter Details Date Type Department Care Team (Late st Contact Info) Description 10/16/2022 Telephone [facility] MEDICINE [address] [place] [address] Khloe Fonseca [address] [place] [address] pt1 Social History Tobacco Use Types Packs/Day [...] Nannette Whittaker - 10/24/2022 10:19 AM EDT Vegetable Farm Worker called and left voicemail for pt stating Pt1 Request was approved and she may call to schedule * Telephone Encounter - Nannette Whittaker - 10/24/2022 10:17 AM EDT Patient will recieve approval / denial letter via mail. PT-1 Request [id number] Pending - [facility] [address] [place] [address] Dr [place] * Telephone Encounter - Eddie Sousa - 10/21/2022 10:14 AM EDT Tc from pt requesting status on PT1. Date: October 22, 2022 Time: 2:45 pm address:[address] [place] [address] specialty:Pul[facility]ology Center # visits: heat engineering teacher: no Wheelchair: no * Telephone Encounter - Marko Rodriguez - 10/16/2022 11:51 AM EDT Tc from pt requesting pt1 ride Date: october 22, 2022 Time: 2:45 pm address:[address] [place] [address] specialty:Pul[facility]ology Center # visits: heat engineering teacher: no Wheelchair: no documented in this encounter Plan of Treatment Upcoming Encounters Date Type Department Care Team (Late st Contact Info) Description 09/28/2024 1:30 PM EDT Office Visit [facility] MEDICINE 230 [place], [place] [phone] Kristy Wilder MD 230 [place], [place] 10/18/2024 11:00 AM EDT Telemedicine [facility] CHC MED & PEDS 505 [place] [address] Colette Diop, BRICE 505 [place], [place] documented as of this encounter Visit Diagnoses Not on filedocumented in this encounter Additional Health Concerns Assessment Noted Time PHQ-9 Depression Total Score: 11 022 1:16 PM EST documented as of this encounter Care Teams Cloth Mercerizer Back Tender Relationship Specialty Start Date End Date Khloe Fonseca FNP PCP - General Family Medicine 02/05/22 12/25/22 Kristy Wilder MD [address] [place] [address] PCP - General Internal Medicine 12/26/22 documented as of this encounter
--- OUTSIDE RECORDS SUMMARY | 2024-09-17 13:17 | XMS_ITS | Clinical Summary ---
Author Organization [employer] Address [address] [facility] [address] [place] [address] Care Team Providers Care Director Of Accreditation Name Role Phone Kristy Wilder MD Primary Care Pro vider Allergies Active Allergy Reactions Criticality Noted Date Comments Pymtvaodf-Rh-Gtglykzmyezsn Unknown 3 Hydromorphone Rash Low 06/28/2020 Other reaction(s): Nausea / Vomiting Phenylephrine 12/19/2022 Other reaction(s): EDEMA Medications * This document contains information received from the source organization and may not represent a complete record from that organization. acetaminophen (Tylenol 8 Hour) 650 MG ER tablet Take 2 tablets by mouth every 8 (eight) hours. 022 Active Nutritional Supplements (Ensure Plus) liquid Drink supplement twice daily 021 Active Blood Glucose Monitoring Suppl (FreeStyle glucose monitoring) kit 1 each if needed. Active Blood Pressure kit 1 kit. Active Mintox Maximum Strength 400-400-40 MG/5ML suspension MIX WITH lidocaine AND benadryl, SHAKE WELL ,rinse AND SPIT OUT 10 ML FOUR TIMES DAILY NEEDED FOR PAIN IN MOUTH 023 Active Cabometyx 40 MG chemo tablet 023 Active M-Dryl 12.5 MG/5ML liquid MIX WITH lidocaine AND maalox, SHAKE WELL, RINSE AND SPIT OUT 10 ML FOUR TIMES DAILY NEEDED PAIN IN MOUTH 023 Active senna (Senokot) 8.6 MG tablet Take 1 tablet by mouth 2 times daily. 023 Active lidocaine (Xylocaine) 2 % solution MIX WITH BENADRYL AND MAALOX, SHAKE WELL RINSE AND SPIT OUT 10 ML FOUR TIMES DAILY NEEDED PAIN IN MOUTH 023 Active polyethylene glycol, PEG, 3350 (MiraLax) 17 GM/SCOOP powder take (17G) by oral route every day mixed with 8 oz. water, juice, coffee or tea 225 g 2 023 Active nystatin (Mycostatin) 722313 UNIT/GM powder Apply topically 2 times daily. USE AFTER ANTIFUNGAL CREAM 120 g 3 024 2024 Active naloxone (Narcan) 4 mg/0.1 mL nasal spray Administer 4 mg into affected nostril(s) if needed for opioid reversal. May repeat every 2-3 minutes if needed, alternating nostrils, until medical assistance becomes available. Active ammonium lactate (Lac-Hydrin) 12 % lotion Apply topically if needed (at bedtime). Active Eliquis 5 MG tablet Take 1 tablet by mouth 2 times daily. Active cholestyramine (Questran) 4 g packet Take 1 packet by mouth with breakfast, with lunch, and with evening meal. Active diphenoxylate-atr opine (Lomotil) 2.5-0.025 MG tablet Take 1 tablet by mouth 4 times daily. Active loperamide (Imodium) 2 MG capsule Take 1 capsule by mouth if needed in the morning, at noon, in the evening, and at bedtime. Active ondansetron (Zofran) 4 MG tablet Take 1 tablet by mouth every 8 (eight) hours. Active betamethasone, augmented, (Diprolene) 0.05 % ointmentIndicatio ns:Psoriasis Apply topically 2 times daily. 50 g 11 Active FREESTYLE LITE test strip TEST BLOOD SUGAR THREE TIMES DAILY 100 strip 11 Active TRUEplus Lancets 33G misc TEST BLOOD SUGAR THREE TIMES DAILY 100 each Active levothyroxine (Synthroid, Levoxyl) 112 MCG tabletIndications :Hypothyroidism, unspecified type TAKE 1 TABLET BY MOUTH EVERY DAY BEFORE BREAKFAST 90 tablet 1 Active Alcohol Swabs (Alcohol Prep) 70 % padsIndications:T ype 2 diabetes mellitus without complications (CMS/HCC) USE DIRECTED THREE TIMES DAILY 100 each 11 11/12/2 024 Active sertraline (Zoloft) 100 MG tablet Take 1.5 tablets (150 mg) by mouth Once per day. take 1.5 tablet (150mg) by oral route every day 45 tablet 1 024 Active zolpidem (Ambien) 10 MG tabletIndications :Primary insomnia TAKE 1 TABLET BY MOUTH AT BEDTIME 28 tablet 024 Active oxyCODONE (Roxicodone) 5 MG immediate release tabletIndications :Back pain, unspecified back location, unspecified back pain laterality, unspecified chronicity TAKE 1 TABLET BY MOUTH EVERY TWELVE HOURS NEEDED FOR SEVERE PAIN 56 tablet 024 Active metFORMIN (Glucophage) 500 MG tabletIndications :Elevated blood sugar TAKE 1 TABLET BY MOUTH EVERY MORNING and TAKE 2 TABLETS BY MOUTH EVERY DAY IN THE EVENING 270 tablet 1 024 Active Multiple Vitamin (Multivitamin) tablet TAKE 1 TABLET BY MOUTH EVERY MORNING 90 tablet 1 024 Active calcipotriene (Dovonex) 0.005 % ointmentIndicatio ns:Psoriasis APPLY TOPICALLY TO THE AFFECTED AREA(S) TWICE DAILY 60 g 3 025 Active Fluocinolone Acetonide Scalp 0.01 % oilIndications:Ps oriasis APPLY TOPICALLY TO THE AFFECTED AREA(S) TWICE A WEEK 118.28 mL 3 025 Active docusate sodium (Colace) 100 MG capsuleIndication s:Therapeutic opioid induced constipation TAKE 1 CAPSULE BY MOUTH AT BEDTIME NEEDED 90 capsule 1 025 Active propranolol (Inderal) 10 MG tablet TAKE 1 TABLET BY MOUTH TWICE DAILY IN THE MORNING AND IN THE EVENING 180 tablet 025 Active atorvastatin (Lipitor) 10 MG tabletIndications :Mixed hyperlipidemia TAKE 1 TABLET BY MOUTH AT BEDTIME 90 tablet 1 025 Active famotidine (Pepcid) 20 MG tabletIndications :Gastroesophageal reflux disease without esophagitis TAKE 1 TABLET BY MOUTH TWICE DAILY IN THE MORNING AND AT BEDTIME 180 tablet 1 025 Active losartan (Cozaar) 25 MG tabletIndications :Primary hypertension TAKE 1 TABLET BY MOUTH EVERYDAY AT NOON 90 tablet 1 025 Active atorvastatin (Lipitor) 10 MG tabletIndications :Mixed hyperlipidemia TAKE 1 TABLET BY MOUTH AT BEDTIME 90 tablet 025 2024 Discontinued losartan (Cozaar) 25 MG tabletIndications :Primary hypertension TAKE 1 TABLET BY MOUTH EVERYDAY AT NOON 90 tablet 025 2024 Discontinued famotidine (Pepcid) 20 MG tabletIndications :Gastroesophageal reflux disease without esophagitis TAKE 1 TABLET BY MOUTH TWICE DAILY IN THE MORNING AND AT BEDTIME 180 tablet 025 2024 Discontinued Active Problems Problem Noted Date Diagnosed Date [...] 8:00 PM EDT): Encouraged pt to bring RMV application for disability placard to Forms team. Pt has difficulty breathing r/t lung cancer diagnosis Pt will contact [facility] about increasing hours F/u PRN Therapeutic opioid induced constipation 05/14/20 22 Anxiety 04/25/2022 Depressive disorder 04/25/2022 Essential hypertension [...] was grade 3. status post nephrectomy, at [facility] in January. 9.5 cm [...] Encounters Date Type Department Care Team Description 09/17/2024 Orders Only GENERIC EXTERNAL DATA DEPARTMENT Provider, Generic External Data 09/17/2024 Telephone [facility] [address] [place] [address] Kristy Wilder MD Triage 09/13/2024 Refill [facility] [address] [place] [address] Ольга Tillman MD Mixed hyperlipidemia; Gastroesophageal reflux disease without esophagitis; Primary hypertension 09/09/2024 Orders Only GENERIC EXTERNAL DATA DEPARTMENT Provider, Generic External Data 09/09/2024 Telephone [facility] [address] [place] [address] Kristy Wilder MD NTTS 09/04/2024 Telephone [facility]S [address] [place] [address] Cris Pickett FNP Hose Turner 08/20/2024 Population Health Risk Score [facility] Department [address] [facility] [address] [phone] Provider, Population Health Generic 08/12/2024 Orders Only [facility] External Provider, [facility] 08/03/2024 Patient Outreach [facility] [address] [place] [address] Kristy Wilder MD Care Coordination ([facility] outreach for SDOH PT-1 and food needs-referral completed /) 08/03/2024 Telephone [facility] [address] [place] [address] Kristy Wilder MD PT-1 07/22/2024 1:30 PM EST Clinical Support [facility] [address] [place] [address] Colette Diop RN Back pain, unspecified back location, unspecified back pain laterality, unspecified chronicity 07/22/2024 Refill [facility] [address] [place] [address] Colette Diop RN 07/22/2024 Travel 07/15/2024 Telephone [facility] [address] [place] [address] Candace Calderón [place] september recall 07/13/2024 Refill [facility] [address] [place] [address] Kristy Wilder MD 07/12/2024 Refill [facility] [address] [place] [address] Kristy Wilder MD Therapeutic opioid induced constipation from Last 3 Months Immunizations Name Administration [...] PM EDT Office Visit [facility] [address] [place], [place] [phone] Kristy Wilder MD [address] [place], [place] [phone] 10/18/2024 11:00 AM EDT Telemedicine [facility] [address] [place], [place] [phone] Colette Diop, BRICE [address] [place], [place] [phone] Health Maintenance Due Date Last Done Comments CT Colonography 1967 FIT DNA/Cologuard 1967 FIT 1967 FOBT 1965 Sigmoidoscopy 1967 Alcohol/Substance Use Screening 1979 HPV/Cotest 1997 Diabetes: Foot Exam 08/28/2023 08/27/2022, Cervical Cancer Screening 11/02/2023 Pap Smear 11/02/2023 11/01/2020 COVID-19 Vaccine ( season) 2024 05/14/2022, 05/27/2021, 09/22/2020, Additional history exists Influenza Vaccine (#1) 2024 3, 05/14/2022, 05/27/2021 SDOH Screening 06/19/2024 06/19/2023 Diabetes: Hemoglobin A1C 07/08/20242 024, 12/19/2023, 07/23/2023, Additional history exists Diabetes: Urine Protein Screening 07/23/2024 07/23/2023, 11/23/2021 Depression Screening 10/30/2024 10/31/2023, 10/31/19 Lipid Panel 12/18/2024 12/19/2023, 07/10, 09/06/2022, Additional [...] Procedure Name Priority Date/Time Associated Diagnosis Comments URINALYSIS, COMPLETE, WITH REFLEX TO CULTURE Routine 09/17/2024 10:39 AM EDT COMPREHENSIVE METABOLIC PANEL Routine 09/17/2024 10:27 AM EDT CBC WITH AUTO DIFFERENTIAL Routine 09/17/2024 10:27 AM EDT SARS COV2/INFLUENZA A/B AND RSV RNA QL NAAT Routine 09/17/2024 10:27 AM EDT CTA HEAD NECK W AND WO CONTRAST Routine 09/09/2024 6:51 PM EDT HIGH SENSITIVITY TROPONIN I Routine 09/09/2024 4:57 PM EDT MAGNESIUM Routine 09/09/2024 4:57 PM EDT BASIC METABOLIC PANEL Routine 09/09/2024 4:57 PM EDT HEPATIC FUNCTION PANEL Routine 4:57 PM EDT PROTHROMBIN TIME-INR Routine 09/09/2024 4:57 PM EDT CBC WITH AUTO DIFFERENTIAL Routine 09/09/2024 4:57 PM EDT SARS COV2/INFLUENZA A/B AND RSV RNA QL NAAT Routine 09/09/2024 4:[address] ABDOMEN [...] complication, without long-term current use of insulin ([facility]/HCC) LIPID PANEL, STANDARD Routine 12/19/2023 8:49 AM EDT Type 2 diabetes mellitus with other specified complication, without long-term current use of insulin ([facility]/HCC) BI MAMMOGRAM SCREENING TOMOSYNTHESIS BILATERAL Routine 12/05/2023 [...] Relevant to Health Maintenance Results * (ABNORMAL) Urinalysis, Complete, with Reflex to Culture (09/17/2024 10:39 AM EDT) Color Urine Yellow [facility] Appearance Urine Clear [facility] PH 5.5 5.0 - 9.0 [facility] Glucose Urine UA Negative Negative mg/dL [facility] Urine Blood Negative Negative [facility] Specific [place] - Urine 1.015 1.005 - 1.025 [facility] Urine Protein Negative Neg-Trace mg/dL [facility] Urine Ketones Negative Negative mg/dL [facility] Nitrite Urine Negative Negative [facility] Leukocyte Esterase Urine Large (3+)(A) Negative [facility] RBC Urine 0-2 0 - 2 /HPF [facility] Urine WBC 21-50(A) 0 - 5 /HPF [facility] Urine Squamous Epithelial Cell 6-10 0 - 2 /HPF [facility] Urine Bacteria None Seen None Seen [facility] Hyaline Casts, Urine 0-2 0 - 2 /LPF [facility] 09/17/2024 10:3 9 AM EDT 09/17/2024 10:45 AM EDT Narrative [facility] - 09/17/2024 10:55 AM EDT [id number], Clean Catch Generic External Data Provider LAB URINE ORDERAB LES Final Result Performing Organization Address [facility]/ZIP Co de Phone Number [facility] [address] [place] [address] [phone] * SARS-CoV-2 RNA, Influenza A/B, and RSV RNA, Ql NAAT (09/17/2024 10:27 AM EDT) Only the most recent of2 resultswithin the time period is included. Influenza A PCR NEGATIVE Negative [facility] Influenza B PCR NEGATIVE Negative [facility] Resp Syncy Virus RNA Qual PCR NEGATIVE Negative [facility] SARS COV2 PCR NEGATIVE Negative [facility] Comment:All test results mus t be correlated with clinical findings.Negative results do not preclude SARS-CoV2, influenza Avirus, influenza B virus and/or RSV infectionand should not be used as the sole basis for treatment orother patient management decisions. Negative results must becombined with clinical observations, patient history, andepidemiological information.This test has not been evaluated for monitoring treatment ofinfection.This test has been authorized by the FDA under an EmergencyUse Authorization (EUA) for use by authorized laboratories.Testing performed on the [place] HealthVest GeneXpert utilizingreal-time RT-PCR.All SARS CoV2 and positive influenza A/B results arereported to [facility]. 09/17/2024 10:2 7 AM EDT 09/17/2024 10:34 AM EDT us Generic External Data Provider LAB MICROBIOLOGY - GENERAL ORDERABLES Final Result Performing Organization Address City/[facility]/ZIP Co de Phone Number [facility] [address] [place] [address] [phone] * CBC auto differential (09/17/2024 10:27 AM EDT) Only the most recent of2 resultswithin the time period is included. White Blood Count 5.1 4.8 - 10.8 X10*3/uL [facility] Red Blood Count 4.65 4.20 - 5.50 X10*6/uL [facility] Hemoglobin 13.7 12.0 - 16.0 g/dl [facility] Hematocrit 39.9 37.0 - 47.0 % [facility] Mean Corpuscular Volume 85.8 80.0 - 98.0 fL [facility] Mean Corpuscular Hemoglobin 29.5 27.0 - 33.0 pg [facility] Mean Corpuscular HGB Conc 34.3 31.0 - 35.0 g/dl [facility] Red Cell Distribution Width 13.0 11.0 - 16.0 % [facility] Platelet Count 188 160 - 400 X10*3/uL [facility] Mean Platelet Volume 9.6 9.4 - 12.3 fL [facility] Neutrophils Percent Auto 58.6 45 - 73 % [facility] Imm Gran Pct Auto 0.2 0.0 - 0.4 % [facility] Lymphocytes Percent Auto 32.3 20 - 40 % [facility] Monocytes Percent Auto 5.4 2 - 11 % [facility] Eosinophils Percent Auto 3.1 0 - 4 % [facility] Basophils Percent Auto 0.4 0 - 2 % [facility] NRBC Pct Auto 0.0 0.0 - 0.2 /100WBC [facility] Neutrophils Absolute Auto 3.0 2.0 - 8.3 x10*3/uL [facility] Imm Gran Abs Auto 0.01 0.00 - 0.03 X10*3/uL [facility] Lymphocytes Absolute Auto 1.7 1.2 - 4.9 X10*3/uL [facility] Monocytes Absolute Auto 0.3 0.1 - 1.2 X10*3/uL [facility] Eosinophils Absolute Auto 0.2 0.0 - 0.4 X10*3/uL [facility] Basophils Absolute Auto 0.0 0.0 - 0.2 X10*3/uL [facility] NRBC Abs Auto 0.000 0.0 - 0.012 X10*3/uL [facility] 09/17/2024 10:2 7 AM EDT 09/17/2024 10:34 AM EDT us Generic External Data Provider LAB BLOOD ORDERAB LES Final Result [facility] [address] [place] [phone] * (ABNORMAL) Comprehensive Metabolic Panel (09/17/2024 10:27 AM EDT) Sodium 142 135 - 145 mmol/L [facility] Potassium 4.2 3.3 - 5.1 mmol/L [facility] Chloride 109(H) 96 - 108 mmol/L [facility] Carbon Dioxide 27 22 - 29 mmol/L [facility] Anion Gap 10(L) 12 - 20 [facility] Urea Nitrogen (BUN) 14 9 - 16 mg/dL [facility] Creatinine, Serum 0.79 0.5 - 1.4 mg/dL [facility] Creatinine Clr Calc Pharmacy 87.1 [facility] Comment:Provided height and weight: 167.64 cm,86.8 kg.eGFR (calculated from the MDRD study equation) and eCrCl(calculated from the Cockcroft-Gault equation) are based ondifferent parameters and may not yield comparable results.If eCrCl result is absurd, please check patient'sheight/weight. Estimated Glomerular Filt Rate >60 [facility] Comment:Chronic Kidney Disea se: Estimated GFR < 60 mL/min/1.85d2Ksexss Kidney Disease: Estimated GFR < 15 mL/min/1.73m2 Glucose 105 60 - 115 mg/dL [facility] Calcium 9.1 8.4 - 10.2 mg/dL [facility] Bilirubin, Total 0.4 0.0 - 1.0 mg/dL [facility] Aspartate Amino Transferase 50(H) 5 - 31 U/L [facility] Alanine Aminotransferase 70(H) 0 - 31 U/L [facility] Total Protein 6.9 6.5 - 8.0 g/dL [facility] Albumin Level 3.9 3.5 - 5.0 g/dL [facility] Alkaline Phosphatase 102 39 - 117 U/L [facility] 09/17/2024 10:2 7 AM EDT 09/17/2024 10:34 AM EDT us Generic External Data Provider LAB BLOOD ORDERAB LES Final Result Performing Organization Address City/State/[facility] Co de Phone Number [facility] [address] [place] [phone] * CTA Head Neck w/ and w/o Contrast (09/09/2024 6:51 PM EDT) Anatomical Region Laterality Modality Head, Neck Computed Tomogra phy 09/09/2024 6:51 PM EDT Narrative 09/09/2024 6:52 PM EDT ? [facility] ?[address] [place] [phone] ? CT Scan Report ? Signed ? Patient: Krys Gillis ?MR# ?? : [id number] ? : 1965 ?Acct:[id number] ? Age/Sex: 59 / F ?ADM Date: // ? Loc: HO.ED ? Attending Dr: ? Ordering Physician: Ana Laura Brownlee DO ?? Date of Service: 04/03/25 ?? Procedure(s): CT angio head neck ?? Accession Number(s): [id number] ? cc: Ana Laura Brownlee DO; Kristy Wilder MD ? Report Number: ?? [id number]: Total DLP = 1492.00 mGy-cm ? CLINICAL HISTORY: L sided headache, neck pain, R sided weakness ? CT of the head without contrast. ? Comparison 04/20/2024. ? Findings: ?? No acute hemorrhage or infarct is seen. No masses are identified and there ?? is no hydrocephalus. There is no mass-effect. ? Impression: ?? No acute intracranial abnormality is identified. ?? There is mild paranasal sinus disease. ? CT angiogram of the head and neck. ?? Multiplanar MIPS were obtained. ? Comparison 04/20/2024. ? Findings: ?? The carotid and vertebral arteries are patent. ?? No dissection is seen. ?? There is mild atherosclerotic plaque without significant stenosis. ?? 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 ?? 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 ? No large vessel occlusion or focal high-grade narrowing is seen in the ?? [id number]. ?? No aneurysm or vascular malformation is identified. ? There are prominent degenerative changes in the lower lumbar spine with ?? developmental narrowing of the spinal canal. ? Impression: ?? No acute vascular abnormality is identified. ?? Other findings as above. ? This document has been electronically signed by: Eleuterio Mata MD on ?? 09/09/2024 18:51:09 ? Dictated By: ?Bryson Mary MD ? Signed By: ?<Electronically signed by Bryson Mary MD in OV> ?09/09/24 1852 ? DD/ 185 ? TD/TT: 09/09/241850 ? [employer] Leader: ? Procedure Note Katharine Oneil - 09/09/[address] [address] [address] Scan Report Signed Patient: Krys GillisMR# : [id number] : 1965Acct:[id number] Age/Sex: 59 / FADM Date: 09/09/24 Loc: HO.ED Attending Dr: Ordering Physician: Ana Laura Brownlee DO Date of Service: 09/09/24 Procedure(s): CT angio head neck Accession Number(s): [id number] cc: Ana Laura Brownlee DO; Kristy Wilder MD Report Number: [id number]: Total DLP = 1492.00 mGy-cm CLINICAL HISTORY: L sided headache, neck pain, R sided weakness CT of the head without contrast. Comparison 04/20/2024. Findings: No acute hemorrhage or infarct is seen. No masses are identified and there is no hydrocephalus. There is no mass-effect. Impression: No acute intracranial abnormality is identified. There is mild paranasal sinus disease. CT angiogram of the head and neck. Multiplanar MIPS were obtained. Comparison 04/20/2024. Findings: The carotid and vertebral arteries are patent. No dissection is seen. There is mild atherosclerotic plaque without significant stenosis. 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 No large vessel occlusion or focal high-grade narrowing is seen in the qlkrxt-ib-Fcgdba. No aneurysm or vascular malformation is identified. There are prominent degenerative changes in the lower lumbar spine with developmental narrowing of the spinal canal. Impression: No acute vascular abnormality is identified. Other findings as above. This document has been electronically signed by: Eleuterio Mata MD on 09/09/2024 18:51:09 Dictated By: Bryson Mary MD Signed By: <Electronically signed by Bryson Mary MD in OV> 09/09/241851 DD/ 50 TD/TT: 09/09/241850 [employer] Leader: [facility] External Provider IMG CT PROCEDURES Final Result * High Sensitivity Troponin I (09/09/2024 4:57 PM EDT) TROPONIN I HIGH SENSITIVITY <2.7 <3.5 - 17.0 ng/L [facility] Comment:The Rodriges high sens itivity Troponin-I results should beused in conjunction with other diagnostic information suchas ECG, clinical observations and information, and patientsymptoms to aid in the diagnosis of SD. 09/09/2024 4:57 PM EDT 09/09/2024 5:03 PM EDT Generic External Data Provider LAB BLOOD ORDERAB LES Final Result [facility] [address] [place] [phone] * (ABNORMAL) Prothrombin Time-INR (09/09/2024 4:57 PM EDT) [facility] Prothrombin Time 13.2(H) 10.9 - 12.4 SEC [facility] INTERNATIONAL NORM RATIO 1.1 0.9 - 1.1 [facility] Comment:INTERNATIONAL NORMAL IZED RATIO (INR) REFERENCE RANGES Reference RangeFor patients not on anticoagulant therapy: 0.9 - 1.1INR ranges for oral anticoagulanttherapy:For prevention and treatment of venous thrombosis and pulmonary embolism: 2.0 - 3.0For acute myocardial infarction with aspirin therapy: 2.0 - 3.0For acute myocardial infarction without aspirin therapy: 3.0 - 4.0For patients with mechanical prosthetic heart valves: 2.5 - 3.5 09/09/2024 4:57 PM EDT 09/09/2024 5:03 PM EDT Generic External Data Provider LAB BLOOD ORDERAB LES Final Result Performing Organization Address [facility] Co de Phone Number [facility] [address] [place] [phone] * Magnesium (09/09/2024 4:57 PM EDT) [facility] Magnesium 1.8 1.6 - 2.6 mg/dL [facility] 09/09/2024 4:57 PM EDT 09/09/2024 5:03 PM EDT Generic External Data Provider LAB BLOOD ORDERAB LES Final Result Performing Organization Address [facility] Co de Phone Number [facility] [address] [place] [phone] * (ABNORMAL) Hepatic Function Panel (09/09/2024 4:57 PM EDT) [facility] Bilirubin, Total 0.3 0.0 - 1.0 mg/dL [facility] Bilirubin, Direct 0.1 0.0 - 0.5 mg/dL [facility] Aspartate Amino Transferase 41(H) 5 - 31 U/L [facility] Alanine Aminotransferase 56(H) 0 - 31 U/L [facility] Total Protein 6.3(L) 6.5 - 8.0 g/dL [facility] Albumin Level 3.8 3.5 - 5.0 g/dL [facility] Alkaline Phosphatase 99 39 - 117 U/L [facility] 09/09/2024 4:57 PM EDT 09/09/2024 5:03 PM EDT us Generic External Data Provider LAB BLOOD ORDERAB LES Final Result [facility] [address] [place] [address] [phone] * (ABNORMAL) Basic Metabolic Panel (09/09/2024 4:57 PM EDT) Sodium 143 135 - 145 mmol/L [facility] Potassium 4.4 3.3 - 5.1 mmol/L [facility] Chloride 110(H) 96 - 108 mmol/L [facility] Carbon Dioxide 27 22 - 29 mmol/L [facility] Anion Gap 10(L) 12 - 20 [facility] Urea Nitrogen (BUN) 18(H) 9 - 16 mg/dL [facility] Creatinine, Serum 0.73 0.5 - 1.4 mg/dL [facility] Creatinine Clr Calc Pharmacy 96.0 [facility] Comment:Provided height and weight: 167.64 cm,89.8 kg.eGFR (calculated from the MDRD study equation) and eCrCl(calculated from the Cockcroft-Gault equation) are based ondifferent parameters and may not yield comparable results.If eCrCl result is absurd, please check patient'sheight/weight. Estimated Glomerular Filt Rate >60 [facility] Comment:Chronic Kidney Disea se: Estimated GFR < 60 mL/min/1.85g8Oocund Kidney Disease: Estimated GFR < 15 mL/min/1.73m2 Glucose 102 60 - 115 mg/dL [facility] Calcium 8.7 8.4 - 10.2 mg/dL [facility] 09/09/2024 4:57 PM EDT 09/09/2024 5:03 PM EDT us Generic External Data Provider LAB BLOOD ORDERAB LES Final Result [facility] [address] [place] [address] [phone] * CT Abdomen Pelvis w/ Contrast (08/13/2024 9:03 AM EST) Anatomical Region Laterality Modality Body, Pelvis, Abdomen Computed T omography 08/13/2024 9:03 AM EST Narrative 08/13/2024 9:04 AM EST ? [facility] ?[address] ?[place] [address] ? CT Scan Report ? Signed ? Patient: Krys Gillis ?MR# ?? : [id number] ? : 1965 ?Acct:[id number] ? Age/Sex: 59 / F ?ADM Date: 08/12/24 ? Loc: HO.CT ? Attending Dr: Justina Erickson MD ? Ordering Physician: Justina Erickson MD ?? Date of Service: 08/12/24 ?? Procedure(s): CT abdomen pelvis w IV con ?? Accession Number(s): [id number] ? cc: Justina Erickson MD; Kristy Wilder MD ? Report Number: ?? [id number]: Total DLP = ??927.64 mGy-cm ? CLINICAL [...] MD in OV> ?08/13/24 0904 ? DD/ 2 ? TD/TT: 08/13/24902 ? Semiconductor Testing Group Leader: ? Procedure Note Dongaryinterpreter, Image - 08/13/[address] [place] [address] [address] Scan Report Signed Patient: Princess Gillis# : [id number] : 1965Acct:[id number] Age/Sex: 59 / FADM Date: 08/12/24 Loc: HO.CT Attending Dr: Justina Erickson MD Ordering Physician: Justina Erickson MD Date of Service: 08/12/24 Procedure(s): CT abdomen pelvis w IV con Accession Number(s): [id number] cc: Justina Erickson MD; Kristy Wilder MD Report Number: [id number]: Total DLP = 927.64 mGy-cm CLINICAL HISTORY: [...] in OV> 08/13/24903 DD/ 2 TD/TT: 08/13/24902 Semiconductor Testing Group Leader: [facility] External Provider IMG CT PROCEDURES Final Result * CT Chest w/ Contrast (08/13/2024 8:57 AM EST) Anatomical Region Laterality Modality Body, Chest Computed Tomogra phy 08/13/2024 8:57 AM EST Narrative 08/13/2024 8:59 AM EST ? [facility] ?[address] ?[place] [address] ? CT Scan Report ? Signed ? Patient: Krys Gillis ?MR# ?? : [id number] ? : 1965 ?Acct:[id number] ? Age/Sex: 59 / F ?ADM Date: 08/12/24 ? Loc: HO.CT ? Attending Dr: Justina Erickson MD ? Ordering Physician: Justina Erickson MD ?? Date of Service: 08/12/24 ?? Procedure(s): CT chest w IV con ?? Accession Number(s): [id number] ? cc: Justina Erickson MD; Kristy Wilder MD ? Report Number: ?? [id number]: Total DLP = ?0.00 mGy-cm ? CLINICAL [...] Maria Esther Bhardwaj MD in OV> ?08/13/24 0858 ? DD/ 6 ? TD/TT: 08/13/24856 ? Semiconductor Testing Group Leader: ? Procedure Note Donestherter, Image - 08/13/[address] [place] [address] [address] Scan Report Signed Patient: Princess Gillis# : [id number] : 1965Acct:[id number] Age/Sex: 59 / FADM Date: 08/12/24 Loc: HO.CT Attending Dr: Justina Erickson MD Ordering Physician: Justina Erickson MD Date of Service: 08/12/24 Procedure(s): CT chest w IV con Accession Number(s): [id number] cc: Justina Erickson MD; Kristy Wilder MD Report Number: [id number]: Total DLP = 0.00 mGy-cm CLINICAL HISTORY: [...] MD in OV> 08/13/24 0858 DD/ TD/TT: 08/13/2457 [employer]iconductor Testing Group Leader: us [facility] External Provider IMG CT PROCEDURES Final Result * POCT Creatinine GFR (08/12/2024 8:45 AM EST) POCT Creatinine 1.1 0.5 - 1.4 mg/dL [facility] GFR POC 55 [facility] Comment:Chronic Kidney Disea se: Estimated GFR < 60 mL/min/1.82w8Fgcxza Kidney Disease: Estimated GFR < 15 mL/min/1.73m2 08/12/2024 8:45 AM EST 08/13/2024 9:59 AM EST Narrative [facility] - 08/13/2024 10:01 AM EST [id number] Generic External Data Provider LAB POINT OF CARE TEST DOCKED DEVICE ORDERABLES Final Result [facility] [address] [place] [phone] * POCT KAJAL-14 Urine Drug Screen (07/22/2024 12:01 PM EST) Urine Urine specimen obtained by clean catch procedure / Unknown 07/22/2024 12:01 PM EST Narrative Colette Diop RN - 07/22/2024 12:01 PM EST negative for THC, MOP, OXY, JACKIE, MET, AMP, BZO, BAR, MTD, BUPG, TCA, MDMA, PCP, PPX. Lot# [id number] Exp: 05-15-25 Kristy Mosley MD POINT OF CARE NERY T ENTER/EDIT ORDERABLES Final Result * POCT HGB A1C (01/06/2024 2:56 PM EDT) Hemoglobin A1C 5.9 4.0 - 6.0 % QC Media Lot # [id number] Lot# Expiration Date Blood 01/06/2024 2:56 PM EDT Kristy Mosley MD POINT OF CARE NERY T ENTER/EDIT ORDERABLES Final Result * (ABNORMAL) Lipid Panel, Standard (12/19/2023 8:49 AM EDT) Triglycerides 68 <150 mg/dL [facility] Comment:Desirable Triglyceri de: less than 150 mg/dLBorderline High Triglyceride 150-199 mg/dLHigh Triglyceride: 200-499 mg/dLVery High Triglyceride: greater than or equal to 5OO mg/dL Cholesterol 135 <200 mg/dL [facility] Comment:Desirable Cholestero l: less than 200 mg/dLBorderline High Cholesterol: 200-239 mg/dLHigh Cholesterol: greater than 239 mg/dL LDL Cholesterol Calculated 92 <100 mg/dL [facility] Comment:Desirable LDL: less than 100 mg/dLNear Optimal/Above Optimal LDL: 110- 129 mg/dLBorderline High LDL: 130-159 mg/dLHigh LDL: 160-189 mg/dLVery High LDL: greater than or equal to 190 mg/dL HDL Cholesterol 30(L) >40 mg/dL [facility] Comment:Desirable HDL: great er than 40 mg/dL Note: This HDL assay may give artificially low results in patients with liver disease. Blood Venous blood specimen / Unknown 12/19/2023 8:49 AM EDT 12/19/2023 11:06 AM EDT Kristy Mosley MD LAB BLOOD ORDERAB LES Final Result [facility] [address] [place] [address] [phone] * BI Mammogram Screening Tomosynthesis Bilateral (12/05/2023 12:45 PM EDT) Anatomical Region Laterality Modality Breast Bilateral Mammography 12/05/2023 12:4 5 PM EDT Narrative 12/18/2023 1:26 PM EDT ? [facility] ? [address] ?[place] [address] ? Mammography Report ? Signed ? Patient: Elis,Krys ?MR# ?? : [id number] ? : 1965 ?Acct:[id number] ? Age/Sex: 58 / F ?ADM Date: 12/05/23 ? Loc: HO.MAMMO ? Attending Dr: Kristy Mosley MD ? Ordering Physician: Kristy Wilder MD ?Re ?? sults: 2Benign Findings ? Date of Service: 12/04/ ?Follow Up: 1 Year From Orig ?? inal Mammogram ? Procedure(s): MM tomosynthesis screening BI ?? Accession Number(s): [id number] ? cc: Kristy Wilder MD ? EXAMINATION: [...] 1323 ? DD/ 1245 ? TD/TT: ? Semiconductor Testing Group Leader: ? Procedure Note Thad, Image - 12/18/2023 [facility] [address] [place] [address] Mammography Report Signed Patient: Princess Gillis# : [id number] : 1965Acct:[id number] Age/Sex: 58 / FADM Date: 12/05/23 Loc: HO.MAMMO Attending Dr: Kristy Mosley MD Ordering Physician: Kristy Wilder sults: 2Benign Findings Date of Service: 12/05/23Follow Up: 1 Year From Orig ina Mammogram Procedure(s): MM tomosynthesis screening BI Accession Number(s): [id number] cc: Kristy Wilder MD EXAMINATION: MM SCREENING [...] in OV> 12/18/23 1323 DD/ 1245 TD/TT: Semiconductor Testing Group Leader: us Kristy Mosley MD IMG BI PROCEDURES Final Result * Albumin, Random Urine W/Creatinine (07/23/2023 10:06 AM EST) Creatinine, Urine 213.14 mg/dL [facility] Microalbumin Urine 16.0 mg/L [facility] Microalbum Creatinine Ratio Ur 7.5 <30 ug/mg cr [facility] Comment:Albumin/Creatinine R atio Reference Ranges: Normal: < 30 ug/mg creatinine Microalbuminuria: 30 - 300 ug/mg creatinineClinical Albuminuria: > 300 ug/mg creatinine 07/23/2023 10:0 6 AM EST 07/23/2023 11:20 AM EST Kristy Mosley MD LAB URINE ORDERAB LES Final Result Performing Organization Address [facility] Co de Phone Number [facility] [address] [place] [phone] * Hepatitis C Antibody with Reflex to HCV, RNA, Quantitative, Real-Time PCR (07/23/2023 10:05 AM EST) Pathologist [facility] Hepatitis C Antibody Nonreactive Nonreactive [facility] Comment:Antibodies to HCV no t detected; does not exclude early acuteHCV infection. Blood Venous blood specimen / Unknown 07/23/2023 10:05 AM EST 07/23/2023 11:26 AM EST Kristy Mosley MD LAB BLOOD ORDERAB LES Final Result Performing Organization Address [facility] Co de Phone Number [facility] [address] [place] [phone] * HIV-1/2 Antigen and Antibodies, Fourth Generation, with Reflexes (07/23/2023 10:05 AM EST) Pathologist [facility] HIV AB/AG Nonreactive Nonreactive [facility] Comment:HIV-1 p24 Ag and/or HIV-1/HIV-2 Ab not detected.A test result that is nonreactive does not exclude thepossibility of exposure to or infection with HIV-1 and/orHIV-2. Nonreactive results in this assay for individualswith prior exposure to HIV-1 and/or HIV-2 may be due toantigen and antibody levels that are below the limit ofdetection of this assay.The SnapMyAd HIV Ag/Ab Combo assay result andsupplemental assay results should be interpreted inconjunction with the patient's clinical presentation,history and other laboratory results. If the results areinconsistent with clinical evidence, additional testing issuggested to confirm the result. Blood Venous blood specimen / Unknown 07/23/2023 10:05 AM EST 07/23/2023 11:26 AM EST Kristy Mosley MD LAB BLOOD ORDERAB LES Final Result [facility] [address] [place] [phone] * Pap Smear (11/01/2020) Pap smear Performed Historical Provider HEALTH MAINTENANCE Final Result * Colonoscopy (11/23/2018) Colonoscopy Performed Historical Provider HEALTH MAINTENANCE Edited Result - Final from Last 3 Months or Most Recently Relevant to Health Maintenance [place] [address] [place] [address] C3 Care Teams Director Of Accreditation Relationship Specialty Start Date End Date Kristy Wilder MD [address] [place] [phone] PCP - General Internal Medicine 12/26/22
--- OUTSIDE RECORDS SUMMARY | 2024-09-17 13:18 | XMS_ITS | Clinical Summary ---
Author Organization [facility] Address [address] [place] [address] Care Team Providers Care Child & Adolescent Psychiatrist Name Role Phone Bryce Terrietaijuice Partha Primary [...] series) 2042 Medical Devices Implanted Type Area Merchandise Clerk Device Identifier Shelf Expiration Date Model / Serial / Lot System Closure Suture Medicated Perclose Proglide 6fr - [id number] Implanted:Qty: 1 on 02/04/2019 at [facility] Implant [employer] [id number] 73-03 / / Coil Embolization Neurovascular [place] 0.035in [id number] Tornado - [id number] Implanted:Qty: 1 on 02/04/2019 at [facility] Implant [employer] [id number] 10/11/19 23 [id number] / / [id number] Coil Embolization Neurovascular [place] 0.035in 6ohp0rj Tornado - [id number] Implanted:Qty: 1 on 02/04/2019 at [facility] Implant [employer] [id number] 08/03/19 24 [id number] / / [id number] Coil Embolization Neurovascular [place] 0.035in 3yed4es Tornado - [id number] Implanted:Qty: 1 on 02/04/2019 at [facility] Implant [employer] [id number] 08/03/19 24 [id number] / / [id number] Coil Embolization Neurovascular [place] 0.035in [id number] Tornado - [id number] Implanted:Qty: 1 on 02/04/2019 at [facility] Implant [employer] [id number] 08/03/19 24 [id number] / / [id number] [place] [address] Care Teams Child & Adolescent Psychiatrist Relationship Specialty Start Date End Date Davon Wu [address] [place] [phone] PCP - General Internal Medicine 09/28/18
--- OUTSIDE RECORDS SUMMARY | 2024-09-17 13:18 | XMS_ITS | Clinical Summary ---
Author Organization [facility] Address [address] [place] [address] Phone Care Team Providers Care Project Economist Name Role Phone Physician, No Pcp Primary [...] 2024 05/14/2022, 05/27/2021, 09/22/2020, Additional history exists Diabetes: Annual Urine Albumin-Creatinine Ratio (uACR) 05/09/2024 Diabetes: Blood Sugar Control Test (HGBA1C) 07/08/2024 01/06/2024 Depression Screening 10/30/2024 10/31/2023 Influenza Vaccine (Season Ended) 2025 03/11/2023, 05/14/2022, 05/27/2021 Diabetes: Annual Retina Eye Exam 03/17/2025 03/17/2024 [...] age to complete this topic Meningococcal B Vaccine Aged Out No l onger eligible based on patient's age to complete [...] mmol/L LAB CHEMISTRY METHOD 05/09/2024 2:26 PM [facility] Potassium 4.1 3.5 - 5.5 mmol/L LAB CHEMISTRY METHOD 05/09/2024 2:26 PM [facility] Chloride 107 96 - 110 mmol/L LAB CHEMISTRY METHOD 05/09/2024 2:26 PM [facility] CO2 32 21 - 32 mmol/L LAB CHEMISTRY METHOD 05/09/2024 2:26 PM [facility] Anion Gap 4 3 - 11 LAB CHEMISTRY METHOD 05/09/2024 2:26 PM [facility] Glucose 94 70 - 100 mg/dL LAB CHEMISTRY METHOD 05/09/2024 2:26 PM [facility] BUN 13 5 - 25 mg/dL LAB CHEMISTRY METHOD 05/09/2024 2:26 PM [facility] Creatinine 0.79 0.50 - 1.10 mg/dL LAB CHEMISTRY METHOD 05/09/2024 2:26 PM [facility] eGFR 87 >=60 mL/min/1. 73m2 LAB CHEMISTRY METHOD 05/09/2024 2:26 PM [facility] Comment:Calculation based on the??Chronic Kidney Disease Epidemiology Collaboration (CKD-EPI) equation refit??without adjustment for race. BUN/Creatinine Ratio 16.5 LAB CHEMISTRY METHOD 05/09/2024 2:26 PM [facility] Calcium 9.5 8.5 - 10.5 mg/dL LAB CHEMISTRY METHOD 05/09/2024 2:26 PM [facility] AST (SGOT) 23 10 - 42 unit/L LAB CHEMISTRY METHOD 05/09/2024 2:26 PM [facility] ALT (SGPT) 31 10 - 60 unit/L LAB CHEMISTRY METHOD 05/09/2024 2:26 PM [facility] Alkaline Phosphatase 91 42 - 121 unit/L LAB CHEMISTRY METHOD 05/09/2024 2:26 PM [facility] Total Protein 6.6 6.0 - 8.0 g/dL LAB CHEMISTRY METHOD 05/09/2024 2:26 PM [facility] Albumin 3.5 3.2 - 5.0 g/dL LAB CHEMISTRY METHOD 05/09/2024 2:26 PM [facility] Total Bilirubin 0.8 0.0 - 1.4 mg/dL LAB CHEMISTRY METHOD 05/09/2024 2:26 PM [facility] Blood Venous blood specimen / Unknown Venipuncture / Unknown 05/09/2024 1:32 PM EST 05/09/2024 1:57 PM EST us Bryson Sinha MD LAB BLOOD ORDERABLES Final Result [facility] [address] [place] [address], from Last 3 Months or Most Recently Relevant to Health Maintenance Insurance MEDICAID - [place] Care Teams Project Economist Relationship Specialty Start Date End Date Physician, No Pcp PCP - General 05/09/24
--- OUTSIDE RECORDS SUMMARY | 2024-09-17 13:18 | XMS_ITS | Encounter Summary ---
Author Organization [facility] Address [address] [place] [address] Care Team Providers Care Fabric Worker Name Role Phone Kristy Wilder MD Primary Care Pro vider Reason for Visit * Reason Onset Date Comments Triage 09/17/2024 Encounter Details Date Type Department Care Team ([facility] st Contact Info) Description 09/17/[address] [facility] [address], [place] [phone] Kristy Wilder MD [address], [place] [phone] Triage Social History Tobacco Use Types Packs/Day [...] encounter Miscellaneous Notes * Telephone Encounter - Ana Moreno RN - 09/17/2024 9:26 AM EDT Per chart review patient on losartan 25mg PO daily and propranolol 10 mg PO BID. 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 Call returned to [facility] below. Reports having elevated BP reading this morning of 163/91 Per pt prior to taking BP meds. Per pt SBP range of 140-150s. Per pt has been elevated x 1 month. Per pt mild BURKS. No dizziness,CP or SOB. Per pt lives alone. Pt alert, speaking in clear full sentences. Pt states feels similar to when seen at ER on 09/09/24 for Neuro Deficit. Denies any numbness of face, arm or leg. Per [facility] notes , pt was offered admission for MRI to rule out brain mass vs stroke, but patient declined. Pt offered sick onsite but prefers to seek [facility] as closer than clinic. Pt advised to return call after ER discharge. Sent to team for [facility] ER status check PRN. Protocol Used: Blood Pressure - High (Adult) Protocol-Based Disposition: See in Office or Video Visit within 3 Days Override (Final) Disposition: Go to ED Now Override Reason: Caller declined suggested disposition Video visit offer not recorded Positive Triage Question: * Systolic BP >= 160 OR Diastolic >= 100 * All higher-acuity triage questions were negative Care Advice Discussed: * Reasons To Call Back - Chest pain or difficulty breathing occurs - You become worse * Telephone Encounter - Alicia Tran - 09/17/2024 9:19 AM EDT Symptom: High Blood Pressure - Caller Reports Outcome: Talk to a nurse or provider within 15 minutes Reason: Severe headache The caller accepted this outcome. ( Citizen Of [place] Speaker- [phone], contact info verified ) documented in this encounter Plan of Treatment Upcoming Encounters Date Type Department Care Team ([facility] Contact Info) Description 09/28/2024 1:30 PM EDT Office Visit [facility] [address] [place] [address] Kristy Wilder MD [address] [place] [phone] 10/18/2024 11:00 AM EDT Telemedicine [facility] [address], [place] [phone] Colette Diop, BRICE [address] [place] [address] documented as of this encounter Visit Diagnoses Not on filedocumented in this encounter Additional Health Concerns Assessment Noted Time PHQ-9 Depression Total Score: 4 10/31/19 24 1:38 PM EDT documented as of this encounter Care Teams Fabric Worker Relationship Specialty Start Date End Date Kristy Wilder MD [address] [place] [phone] PCP - General Internal Medicine 12/26/22 documented as of this encounter
--- OUTSIDE RECORDS SUMMARY | 2024-09-17 13:18 | XMS_ITS | Referral Summary ---
Author Organization [facility] Address [address] [place] [address] Care Team Providers Care Unit Secretary Name Role Phone Bryce Rufustaijuice Partha Primary Care Provider [phone] Allergies Active Allergy Reactions Criticality Noted Date [...] on file Medical Devices Implanted Type Area Gaming Floor Supervisor Device Identifier Shelf Expiration Date Model / Serial / Lot System Closure Suture Medicated Perclose Proglide 6fr - [id number] Implanted:Qty: 1 on 02/04/2019 at [facility] Implant [employer] [id number] 126 73-03 / / Coil Embolization Neurovascular [place] 0.035in 6ads7cz Tornado - [id number] Implanted:Qty: 1 on 02/04/2019 at [facility] Implant [employer] [id number] 10/11/19 23 [id number] / / [id number] Coil Embolization Neurovascular [place] 0.035in [id number] Tornado - [id number] Implanted:Qty: 1 on 02/04/2019 at [facility] Implant [employer] [id number] 08/03/19 24 [id number] / / [id number] Coil Embolization Neurovascular [place] 0.035in 8zte5sf Tornado - [id number] Implanted:Qty: 1 on 02/04/2019 at [facility] Implant [employer] [id number] 08/03/19 [id number] / / [id number] Coil Embolization Neurovascular [place] 0.035in 2lwe0am Justin - [id number] Implanted:Qty: 1 on 02/04/2019 at [facility] Implant [employer] [id number] 08/03/19 [id number] / / [id number] [place] [place] [address] Care Teams Unit Secretary Relationship Specialty Start Date End Date Davon Wu [address] [place] [address] PCP - General Internal Medicine 09/28/18
--- OUTSIDE RECORDS SUMMARY | 2024-09-17 13:18 | XMS_ITS | Encounter Summary ---
Author Organization [employer] Address [address] [facility] [address] [place] [address] Care Team Providers Care Machine Baster Name Role Phone Kristy Wilder MD Primary Care Pro vider Encounter Details Date Type Department Care Team (Late st Contact Info) Description 09/17/2024 Orders Only GENERIC EXTERNAL DATA DEPARTMENT Provider, Generic External Data Social History Tobacco Use Types Packs/Day Years [...] as of this encounter Miscellaneous Notes * Result Encounter Note - Kristy Mosley MD - 09/17/2024 10:39 AM EDT Labs done by outside provider documented in this encounter Plan of Treatment Upcoming Encounters Date Type Department Care Team (Late st Contact Info) Description 09/28/2024 1:30 PM EDT Office Visit [facility] [address] [place] [phone] Kristy Wilder MD [address] [place], [place] [phone] 10/18/2024 11:00 AM EDT Telemedicine [facility] [address] [place], [place] [phone] Colette Diop, RN [address] [place], [place] [phone] documented as of this encounter Procedures Procedure Name Priority Date/Time Associated Diagnosis Comments URINALYSIS, COMPLETE, WITH REFLEX TO CULTURE Routine 09/17/2024 10:39 AM EDT SARS COV2/INFLUENZA A/B AND RSV RNA QL NAAT Routine 09/17/2024 10:27 AM EDT CBC WITH AUTO DIFFERENTIAL Routine 09/17/2024 10:27 AM EDT COMPREHENSIVE METABOLIC PANEL Routine 09/17/2024 10:27 AM EDT documented in this encounter Results * (ABNORMAL) Urinalysis, Complete, with Reflex to Culture (09/17/2024 10:39 AM EDT) Pathologist [facility] Color Urine Yellow [facility] Appearance Urine Clear [facility] PH 5.5 5.0 - 9.0 [facility] Glucose Urine UA Negative Negative mg/dL [facility] Urine Blood Negative Negative [facility] Specific [place] - Urine 1.015 1.005 - 1.025 [facility] Urine Protein Negative Neg-Trace mg/dL [facility] Urine Ketones Negative Negative mg/dL [facility] Nitrite Urine Negative Negative [facility] Leukocyte Esterase Urine Large (3+)(A) Negative [facility] RBC Urine 0-2 0 - 2 /HPF [facility] Urine WBC 21-50(A) 0 - 5 /HPF [facility] Urine Squamous Epithelial Cell 6-10 0 - 2 /HPF [facility] Urine Bacteria None Seen None Seen [facility] Hyaline Casts, Urine 0-2 0 - 2 /LPF [facility] 09/17/2024 10:3 9 AM EDT 09/17/2024 10:45 AM EDT Narrative [facility] - 09/17/2024 10:55 AM EDT [id number], Clean Catch us Generic External Data Provider LAB URINE ORDERAB LES Final Result [facility] [address] [place] [phone] * SARS-CoV-2 RNA, Influenza A/B, and RSV RNA, Ql NAAT (09/17/2024 10:27 AM EDT) Influenza A PCR NEGATIVE Negative [facility] Influenza B PCR NEGATIVE Negative [facility] Resp Syncy Virus RNA Qual PCR NEGATIVE Negative [facility] SARS COV2 PCR NEGATIVE Negative [facility] Comment:All test results mus t be [...] use by authorized laboratories.Testing performed on the [employer] GeneXpert utilizingreal-time RT-PCR.All SARS CoV2 and positive influenza A/B results arereported to [facility]. 09/17/2024 10:2 7 AM EDT 09/17/2024 10:34 AM EDT us Generic External Data Provider LAB MICROBIOLOGY - GENERAL ORDERABLES Final Result [facility] [address] [place] [phone] * (ABNORMAL) Comprehensive Metabolic Panel (09/17/2024 10:27 AM EDT) Sodium 142 135 - 145 mmol/L [facility] Potassium 4.2 3.3 - 5.1 mmol/L [facility] Chloride 109(H) 96 - 108 mmol/L [facility] Carbon Dioxide 27 22 - 29 mmol/L [facility] Anion Gap 10(L) 12 - 20 [facility] Urea Nitrogen (BUN) 14 9 - 16 mg/dL [facility] Creatinine, Serum 0.79 0.5 - 1.4 mg/dL [facility] Creatinine Clr Calc Pharmacy 87.1 [facility] Comment:Provided height and weight: 167.64 cm,86.8 kg.eGFR (calculated from the MDRD study equation) and eCrCl(calculated from the Cockcroft-Gault equation) are based ondifferent parameters and may not yield comparable results.If eCrCl result is absurd, please check patient'sheight/weight. Estimated Glomerular Filt Rate >60 [facility] Comment:Chronic Kidney Disea se: Estimated GFR < 60 mL/min/[id number] Kidney Disease: Estimated GFR < 15 mL/min/1.73m2 Glucose 105 60 - 115 mg/dL [facility] Calcium 9.1 8.4 - 10.2 mg/dL [facility] Bilirubin, Total 0.4 0.0 - 1.0 mg/dL [facility] Aspartate Amino Transferase 50(H) 5 - 31 U/L [facility] Alanine Aminotransferase 70(H) 0 - 31 U/L [facility] Total Protein 6.9 6.5 - 8.0 g/dL [facility] Albumin Level 3.9 3.5 - 5.0 g/dL [facility] Alkaline Phosphatase 102 39 - 117 U/L [facility] 09/17/2024 10:2 7 AM EDT 09/17/2024 10:34 AM EDT us Generic External Data Provider LAB BLOOD ORDERAB LES Final Result [facility] [address] [place] [phone] * CBC auto differential (09/17/2024 10:27 AM EDT) White Blood Count 5.1 4.8 - 10.8 X10*3/uL [facility] Red Blood Count 4.65 4.20 - 5.50 X10*6/uL [facility] Hemoglobin 13.7 12.0 - 16.0 g/dl [facility] Hematocrit 39.9 37.0 - 47.0 % [facility] Mean Corpuscular Volume 85.8 80.0 - 98.0 fL [facility] Mean Corpuscular Hemoglobin 29.5 27.0 - 33.0 pg [facility] Mean Corpuscular HGB Conc 34.3 31.0 - 35.0 g/dl [facility] Red Cell Distribution Width 13.0 11.0 - 16.0 % [facility] Platelet Count 188 160 - 400 X10*3/uL [facility] Mean Platelet Volume 9.6 9.4 - 12.3 fL [facility] Neutrophils Percent Auto 58.6 45 - 73 % [facility] Imm Gran Pct Auto 0.2 0.0 - 0.4 % [facility] Lymphocytes Percent Auto 32.3 20 - 40 % [facility] Monocytes Percent Auto 5.4 2 - 11 % [facility] Eosinophils Percent Auto 3.1 0 - 4 % [facility] Basophils Percent Auto 0.4 0 - 2 % [facility] NRBC Pct Auto 0.0 0.0 - 0.2 /100WBC [facility] Neutrophils Absolute Auto 3.0 2.0 - 8.3 x10*3/uL [facility] Imm Gran Abs Auto 0.01 0.00 - 0.03 X10*3/uL [facility] Lymphocytes Absolute Auto 1.7 1.2 - 4.9 X10*3/uL [facility] Monocytes Absolute Auto 0.3 0.1 - 1.2 X10*3/uL [facility] Eosinophils Absolute Auto 0.2 0.0 - 0.4 X10*3/uL [facility] Basophils Absolute Auto 0.0 0.0 - 0.2 X10*3/uL [facility] NRBC Abs Auto 0.000 0.0 - 0.012 X10*3/uL [facility] 09/17/2024 10:2 7 AM EDT 09/17/2024 10:34 AM EDT us Generic External Data Provider LAB BLOOD ORDERAB LES Final Result Performing Organization Address City/State/[facility] Co de Phone Number [facility] [address] [place] [phone] documented in this encounter Visit Diagnoses Not on filedocumented in this encounter Additional Health Concerns Assessment Noted Time PHQ-9 Depression Total Score: 4 10/31/19 24 1:38 PM EDT documented as of this encounter Care Teams Machine Baster Relationship Specialty Start Date End Date Kristy Wilder MD [address] [place] [phone] PCP - General Internal Medicine 12/26/22 documented as of this encounter
--- OUTSIDE RECORDS SUMMARY | 2024-09-17 13:18 | XMS_ITS ---
Author Organization [facility] Address [address] [place] [address] Care Team Providers Care Compounder [employer] Name Role Phone Davon Wu Primary Care Provider [phone] Active Problems Problem Noted Date Diagnosed Date [...]
--- OUTSIDE RECORDS SUMMARY | 2024-09-17 13:18 | XMS_ITS | Encounter Summary ---
Author Organization [employer] Address [address] [facility] [address] [place] [address] Care Team Providers Care Medical Surgical Tech Name Role Phone Kristy Wilder MD Primary Care Pro vider Reason for Visit * Reason Comments Med Refill Encounter Details Date Type Department Care Team (Late st Contact Info) Description 09/13/2024 Refill [facility] [address] [place], [place] [phone] Ольга Tillman MD [address] [place], [place] [phone] Mixed hyperlipidemia; Gastroesophageal reflux disease without esophagitis; Primary hypertension Social History Tobacco Use Types Packs/Day Years [...] Office Visit [facility] [address] [place] [address] Kristy Wilder MD [address] [place] [address] 10/18/2024 11:00 AM EDT Telemedicine [facility] [address] [place], [place] [phone] Colette Diop, RN [address] [place], [place] [phone] documented as of this encounter Visit Diagnoses Diagnosis Mixed hyperlipidemia Gastroesophageal reflux disease without esophagitis Esophageal reflux Primary hypertension Unspecified essential hypertension documented in this encounter Additional Health Concerns Assessment Noted Time PHQ-9 Depression Total Score: 4 10/31/19 24 1:38 PM EDT documented as of this encounter Care Teams Medical Surgical Tech Relationship Specialty Start Date End Date Kristy Wilder MD [address] [place] [phone] PCP - General Internal Medicine 12/26/22 documented as of this encounter
--- NOTE | 2024-09-17 13:34 | ED.GENADULT ---
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 Reports right-sided body heaviness/ weakness x last week which she was evaluated in our ED for w/ negative head CT. Reports right-sided body weakness since nephrectomy however symptoms were intermittent and recurrent last week thus was sent to the ED. Also reports chest pain & cough. denies fever, SOB, abdominal pain, nausea, vomiting, diarrhea, dysuria. Of note patient was evaluated in our ED on 09/09/2024 for similar symptoms had head CT that was unremarkable, was given dose of dexamethasone and refused admission at that time. Related Data Home Medications ?Medication ?Instructions ?Recorded ?Confirmed losartan 25 mg tablet 25 mg PO DAILY 09/18/20 06/24/24 metformin 500 mg tablet 500 mg PO BID 09/18/20 06/24/24 lancets 33 gauge (TRUEplus Lancets) #100 ea 04/05/21 06/24/24 zolpidem 10 mg tablet 10 mg PO BEDTIME 04/05/21 06/24/24 docusate sodium 100 mg capsule 1 cap PO BEDTIME PRN Constipation 07/12/21 06/24/24 atorvastatin 10 mg tablet 1 tab PO BEDTIME 02/01/22 06/24/24 propranolol 10 mg tablet 10 mg PO BID 04/24/22 06/24/24 famotidine 20 mg tablet 20 mg PO DAILY 12/19/22 06/24/24 multivitamin 1 tab PO QAM 08/14/23 06/24/24 naloxone 4 mg/actuation nasal spray 4 mg intranasal DAILY 08/14/23 06/24/24 levothyroxine 25 mcg tablet 12.5 mcg PO QAM 02/20/24 06/24/24 sertraline 100 mg tablet 100 mg PO DAILY 04/15/24 06/24/24 Previous Rx's ?Medication ?Instructions ?Recorded ondansetron 8 mg disintegrating 8 mg PO Q8H #60 tabs 01/02/23 tablet butenafine 1 % topical cream 1 appl topical BID #45 grams 07/24/23 (Lotrimin Ultra) levothyroxine 100 mcg capsule 100 mcg PO DAILY #30 caps 09/11/23 lidocaine 5 % topical cream 1 appl topical QWEEK #45 grams 09/16/23 Magic Mouthwash 10 ml PO QID #240 mL 04/08/24 Diphen/Lido/Antacid 1:1:1 240 mL suspension butenafine 1 % topical cream 1 appl topical BID #45 grams 06/24/24 (Lotrimin Ultra) apixaban 5 mg tablet (Eliquis) 5 mg PO BID #60 tabs 08/09/24 cabozantinib 40 mg tablet 40 mg PO DAILY #90 tabs 08/23/24 (Cabometyx) Allergies Allergy/AdvReac Type Severity Reaction Status Date / Time phenylephrine Allergy Unknown EDEMA Verified 09/17/24 10:17 [From CONTAC-D COLD (PE)] morphine Allergy Rash Verified 09/17/24 10:17 Contac-D Allergy Unknown Unknown Uncoded 09/17/24 10:17 Review of Systems Review of Systems: Yes all other systems are reviewed and are negative Constitutional: Constitutional: Reports as per HPI Neurologic: Denies Abnormal speech present [facility] Past Medical History Attestation statement: The following information was validated with the patient. Source: old records reviewed Medical History Pulmonary nodules Right renal mass Anxiety Depression Clear cell carcinoma of right kidney Surgical History Hx of colonoscopy History of esophagogastroduodenoscopy (EGD) S/P skin biopsy Status post hysterectomy Family History Family History Maternal Uncle Stomach cancer Maternal Aunt Stomach cancer Paternal Aunt Colon cancer Sister Liver cancer Sister Skin cancer Social History Social History Household Members: None Housing: Apartment Are you a primary childcare attendant to a significant other at home: No Do you presently have visiting nurse or other home services: Yes Alcohol intake: former Patient Tobacco Use Status: Never used Tobacco Smoked in Last 30 Days: No Use of substances other than those prescribed or required for medical reasons: No Advance Directives: No Advance Directives Information Provided: Yes service: No Current occupational status: unemployed Physical Exam ED Vital Signs: Vital Signs - 24 hr 09/17/24 10:11 09/17/24 12:38 09/17/24 14:51 Temperature 98.6 F 97.3 F Pulse Rate 73 64 62 Respiratory Rate 18 16 16 Blood Pressure 149/91 H 160/77 H 164/91 H Pulse Oximetry 97 99 99 Oxygen Delivery Method Room Air Room Air Room Air BMI result Body Mass Index 30.9 Const General: cooperative, healthy appearing and no acute distress Orientation/consciousness: patient oriented x3 Limitations: no limitations HENMT Head: Yes normal to inspection and Yes atraumatic Ears: hearing grossly normal bilaterally General nose exam: Normal external nose present Face and sinus: Yes normal facial exam Mouth: Normal oral and palatal mucosa present Throat: Yes posterior oropharynx normal, Yes uvula midline, No peritonsillar mass, No uvula laterally displaced and No uvular edema Eyes General: appearance normal, both eyes and all related structures Pupils: Equal, round and reactive pupils present EOM: EOMs intact bilaterally Neck Neck: Yes normal visual inspection, Yes no meningeal signs, No anterior neck swelling and No torticollis Resp Effort & Inspection: normal respiratory effort and no respiratory distress Auscultation: clear to auscultation bilaterally, no crackles and no wheezes Cardio Rate: regular rate Heart sounds: S1 normal heart sound present and S2 normal heart sound present GI Inspection: Yes normal to inspection Palpation (GI): Soft to palpation, nontender, no guarding and not rigid General: Yes no CVA tenderness Back/Spine/Pelvis Back: no CVA tenderness Skin Rashes: no rashes Wounds: no wounds Neuro General: patient oriented x3, tone normal, moves all extremities, no meningeal signs, no focal motor deficits and CN's II-XI intact bilaterally Cranial nerves: Yes CN's II-XII intact bilaterally, Yes Equal, round and reactive pupils present and Yes Bilaterally intact EOM present Cognition (Neuro): normal cognition Speech: No Abnormal speech present Motor exam (neuro): 5/5 motor strength present throughout Extrem General: Yes normal to inspection and Yes no pedal edema Course Course Course Narrative: -1809-- no leukocytosis. Labs otherwise reassuring at this time. Chronic transaminitis, troponin negative. - UA contaminated, will wait on initiating antibiotics until culture results - viral testing negative CT head/brain wo IV con IMPRESSION: No acute intracranial abnormality. -1610-- on re-evaluation patient reports symptomatic improvement, denies headache after Fioricet given in the ED. Will sent home with prescription. Recommended close oncology follow-up. Discussed with patient we still recommend brain MRI, states she has this scheduled for the 15 outpatient. Results discussed with patient including worrisome signs and symptoms and strict return precautions, and when to return to the emergency department. They verbalized understanding and feel safe for discharge at this time. 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 Erickson, renal vein thrombosis on [facility], presenting to the ED today complaining of HTN at home systolics 150s to 160s over 90s, and headache radiating to neck since last week. Reports right-sided body heaviness/ weakness x last week which she was evaluated in our ED for w/ negative head CT. On exam vital signs stable, mildly hypertensive 149/91 initially, no focal neuro deficits, No appreciable weakness on exam, lungs CTA, abdomen soft/nontender. Concern for hypertensive urgency vs less likely emergency vs subacute CVA vs mass/metastasis/ brain edema with known history of RCC. lower suspicion for encephalitis / meningitis or ICH. Rule out metabolic abnormalities Plan: EKG, labs, head CT, symptomatic treatment, re-evaluate Please refer to course for remaining clinical decision making, interpretation of labs/imaging results, and discussions with consultants and/or family members. Differential Diagnosis Differential Diagnoses: The differential diagnosis associated with the presentation includes As above Admission/Observation Consideration of admission/observation: Escalation of care including admission/observation considered Lab Data MDM Lab Attestation statement: I reviewed the patient's lab results. 09/17/24 10:27 09/17/24 10:27 Labs: Lab Results 09/17/24 09/17/24 Range/Units 10:27 10:39 WBC 5.1 (4.8-10.8) X10*3/uL RBC 4.65 (4.20-5.50) X10*6/uL Hgb 13.7 (12.0-16.0) g/dl Hct 39.9 (37.0-47.0) % MCV 85.8 (80.0-98.0) fL MCH 29.5 (27.0-33.0) pg MCHC 34.3 (31.0-35.0) g/dl RDW 13.0 (11.0-16.0) % Plt Count 188 (160-400) X10*3/uL MPV 9.6 (9.4-12.3) fL Immature Gran % (Auto) 0.2 (0.0-0.4) % Neut % (Auto) 58.6 (45-73) % Lymph % (Auto) 32.3 (20-40) % [place] % (Auto) 5.4 (2-11) % Eos % (Auto) 3.1 (0-4) % Baso % (Auto) 0.4 (0-2) % Lymph # (Auto) 1.7 (1.2-4.9) X10*3/uL [place] # (Auto) 0.3 (0.1-1.2) X10*3/uL Eos # (Auto) 0.2 (0.0-0.4) X10*3/uL Baso # (Auto) 0.0 (0.0-0.2) X10*3/uL Abs Immat Gran (auto) 0.01 (0.00-0.03) X10*3/uL Absolute Neuts (auto) 3.0 (2.0-8.3) x10*3/uL Absolute Nucleated RBC 0.000 (0.0-0.012) X10*3/uL Nucleated RBC % (auto) 0.0 (0.0-0.2) /100WBC Sodium 142 (135-145) mmol/L Potassium 4.2 (3.3-5.1) mmol/L Chloride 109 H (96-108) mmol/L Carbon Dioxide 27 (22-29) mmol/L Anion Gap 10 L (12-20) BUN 14 (9-16) mg/dL Creatinine 0.79 (0.5-1.4) mg/dL Estim Creat Clear Calc 87.1 Estimated GFR > 60 Random Glucose 105 (60-115) mg/dL Calcium 9.1 (8.4-10.2) mg/dL Magnesium 1.6 (1.6-2.6) mg/dL Total Bilirubin 0.4 (0.0-1.0) mg/dL AST 50 H (5-31) U/L ALT 70 H (0-31) U/L Alkaline Phosphatase 102 (39-117) U/L Troponin I High Sens < 2.7 (<3.5-17.0) ng/L Total Protein 6.9 (6.5-8.0) g/dL Albumin 3.9 (3.5-5.0) g/dL Urine Color Yellow Urine Appearance Clear Urine pH 5.5 (5.0-9.0) Ur Specific [place] 1.015 (1.005-1.025) Urine Protein Negative (Neg-Trace) mg/dL Urine Glucose (UA) Negative (Negative) mg/dL Urine Ketones Negative (Negative) mg/dL Urine Blood Negative (Negative) Urine Nitrite Negative (Negative) Ur Leukocyte Esterase Large (3+) H (Negative) Urine RBC 0-2 (0-2) /HPF Urine WBC 21-50 H (0-5) /HPF Ur Squamous Epith Cells 6-10 (0-2) /HPF Urine Bacteria None Seen (None Seen) Hyaline Casts 0-2 (0-2) /LPF Influenza Type A (PCR) NEGATIVE (Negative) Influenza Type B (PCR) NEGATIVE (Negative) RSV RNA Qual (PCR) NEGATIVE (Negative) SARS-CoV-2 RNA (RT-PCR) NEGATIVE (Negative) Independent Interpretation I performed an independent interpretation of an: EKG and CT Scan Radiology Impression Discussion of test interpretation with radiology: I have reviewed the radiologist's reading. External Record Review External record reviewed: Inpatient record, Office record, Outpatient record, Prior outpatient labs, Prior outpatient radiology, Primary care record and Outside ED record Tests considered The following testing was considered but not selected: As above Prescription Management I considered prescription management with: Pain Medication Chronic Conditions Patient?s care impacted by: Cancer Social Determinants Patient?s care significantly limited by Social Determinants of Health including: Other Social Determinant of Health Discharge Plan Discharge Clinical Impression: Headache, Weakness Prescriptions: No Action metformin 500 mg Tablet 500 mg PO BID losartan 25 mg Tablet 25 mg PO DAILY docusate sodium 100 mg capsule 1 cap PO BEDTIME PRN (Reason: Constipation) atorvastatin 10 mg tablet 1 tab PO BEDTIME ondansetron 8 mg Tablet,Disintegrating 8 mg PO Q8H Qty: 60 4RF butenafine [Lotrimin Ultra] 1 % Cream 1 appl TOPICAL BID Qty: 45 2RF multivitamin Tablet 1 tab PO QAM naloxone 4 mg/actuation spray,non-aerosol 4 mg intranasal DAILY levothyroxine 100 mcg Capsule 100 mcg PO DAILY Qty: 30 3RF lidocaine 5 % Cream 1 appl TOPICAL QWEEK Qty: 45 3RF Magic Mouthwash Diphen/Lido/Antacid 1:1:1 240 mL Suspension 10 ml PO QID Qty: 240 4RF Rx Instructions: Lidocaine Viscous 2 % 80mL; diphenhydramine 12.5 mg/5 mL 80mL; aluminum-mag hydrox-simeth [id number]/5mL 80mL butenafine [Lotrimin Ultra] 1 % Cream 1 appl TOPICAL BID Qty: 45 5RF Eliquis 5 mg Tablet 5 mg PO BID Qty: 60 3RF Cabometyx 40 mg Tablet 40 mg PO DAILY Qty: 90 3RF famotidine 20 mg tablet 20 mg PO DAILY zolpidem 10 mg tablet 10 mg PO BEDTIME (DME) lancets [TRUEplus Lancets] 33 gauge misc See Rx Instructions Not Applicable TID Qty: 100 Rx Instructions: As directed propranolol 10 mg tablet 10 mg PO BID levothyroxine 25 mcg tablet 12.5 mcg PO QAM Rx Instructions: pt to take 50mcg daily sertraline 100 mg tablet 100 mg PO DAILY Print Language: Other
[2024-09-17 14:28] LABS: Magnesium 1.6 mg/dL (1.6-2.6)
[2024-09-17 14:34] LABS: Troponin-I High Sensitivity < 2.7 ng/L (<3.5-17.0)
[2024-09-17 14:51] VITALS: BP 164/91; PULSE 62; RESP 16; O2SAT 99
[2024-09-17] MEDS: Butalb/Acetamin/Caff 50/325/40 TABLET 1 TAB PO (15:33)
[2024-09-17 16:12] VITALS: BP 164/85; PULSE 71; RESP 16; O2SAT 98
[2024-09-17 16:25] VITALS: BP 164/85; PULSE 71; RESP 16; TEMP -17.7; TEMP 0; O2SAT 98
== END 2024-09-17 16:26 | disposition home or self-care (01) ==
PROVIDERS: Physician Assistant; Emergency Provider Emergency Medicine Emergency Medical Services; PCP Student in an Organized Health Care Education/Training Program
DX: M79.10 Myalgia, unspecified site (principal); R25.1 Tremor, unspecified; R07.89 Other chest pain; R05.9 Cough, unspecified; R51.9 Headache, unspecified; Z79.899 Other long term (current) drug therapy; Z03.818 Encounter for observation for suspected exposure to other biological agents ruled out
CPT/HCPCS: 0241U; 70450; 80053; 81001; 83735; 84484; 85025; 87086; 93005; 99284

== ENCOUNTER → 2024-09-17 10:21 | Outpatient (BNV) | payer MEDICAID, SELFPAY | PROVIDERS: Emergency Provider Emergency Medicine Emergency Medical Services; PCP Student in an Organized Health Care Education/Training Program; Visit Provider Internal Medicine Cardiovascular Disease | DX: I10 Essential (primary) hypertension (principal) | CPT/HCPCS: 93010 ==

== ENCOUNTER → 2024-09-17 13:50 | Outpatient (BNV) | payer MEDICAID, SELFPAY | PROVIDERS: PCP Student in an Organized Health Care Education/Training Program; Visit Provider Radiology Diagnostic Radiology | DX: I10 Essential (primary) hypertension (principal); H53.8 Other visual disturbances; R51.9 Headache, unspecified | CPT/HCPCS: 70450 ==

== ENCOUNTER 2024-09-21 15:40 | Outpatient (REF) | payer MEDICAID, SELFPAY ==
--- NOTE | ~2024-09-21 | MR_ITS ---
EXAMINATION: MR BRAIN WITHOUT AND WITH CONTRAST CLINICAL INFORMATION: Renal cell cancer.. Hemiparesis, right-sided COMPARISON: Correlated to CT brain and CT angiogram brain dated September 17, 2024 and September 09, 2024. TECHNIQUE: Multiplanar, multisequence MRI of the brain was obtained before and after the intravenous administration of 10 mL gadolinium based without reported immediate complications.. FINDINGS: There is a focal, 3 mm likely extra-axial, enhancing and restricted diffusion signal abnormality in the inferior lateral aspect of the right Meckel's cave and in proximity to the right trigeminal nerves. No acute intracranial hemorrhage, mass effect, midline shift, hydrocephalus or herniation. No restricted diffusion within the brain parenchyma. Flow-void signal within the main cerebral vessels is normal. The main cerebral venous sinuses are patent without intraluminal filling defects. There is a dominant left-sided transverse and sigmoid sinus and left internal jugular bulb. Vegas-white matter differentiation is normal. Sellar/suprasellar region demonstrated no gross masses or signal abnormality. Craniocervical junction is intact and normal. MR/MR head/brain wo/w con IMPRESSION: Focal 3 mm restricted diffusion and enhancing signal abnormality in the inferior lateral right Meckel's cave. Recommend dedicated the thin sections trigeminal nerve protocol for further imaging evaluation. No acute stroke/nonhemorrhagic ischemia. Electronically signed by: Helio Ortega MD 09/22/2024 07:45 AM EDT
[2024-09-21] MEDS: gadobutroL 10 ML VIAL IVPUSH (16:32)
--- OUTSIDE RECORDS SUMMARY | 2024-09-21 18:45 | XMS_ITS | Clinical Summary ---
Author Organization [employer] Address [address] [facility] 7t [place] [address] Care Team Providers Care Building Services Technician Name Role Phone Kristy Wilder MD Primary Care Pro vider Allergies Active Allergy Reactions Criticality Noted Date Comments Pezhnrqbz-Ij-Qakwjcadzzrez Unknown 3 Hydromorphone Rash Low 06/28/2020 Other [...] 225 g 2 023 Active nystatin (Mycostatin) 931900 UNIT/GM powder Apply topically 2 times daily. [...] r/t lung cancer diagnosis Pt will contact [facility] about increasing hours F/u PRN Therapeutic opioid [...] was grade 3. status post nephrectomy, at [facility] in January. 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 Tobacco screening negative.) 09/17/2024 Orders Only GENERIC EXTERNAL DATA DEPARTMENT Provider, Generic External Data 09/17/[address] [address] Kristy Wilder MD Triage 09/13/[address] [address] Ольга Tillman MD Mixed hyperlipidemia; Gastroesophageal reflux disease without esophagitis; Primary hypertension 09/09/2024 Orders Only GENERIC EXTERNAL DATA DEPARTMENT Provider, Generic External Data 09/09/[address] [address] Kristy Wilder MD NTTS 09/04/2024 Telephone [facility] [address] [place] [address] Cris Pickett FNP Clothes Separator 08/20/2024 Population Health Risk Score [facility] Department [address] [place] [phone] Provider, Population Health Generic 08/12/2024 Orders Only [facility] External Provider, [facility] 08/03/2024 Patient Outreach [facility] [address] [place] [address] Kristy Wilder MD Care Coordination ([facility] outreach for SDOH PT-1 and food needs-referral completed /) 08/03/2024 Telephone [facility] [address] [place] [address] Kristy Wilder MD PT-1 07/22/2024 1:30 PM EST Clinical Support [facility] [address] [place] [address] Colette Diop, BRICE Back pain, unspecified back location, unspecified back pain laterality, unspecified chronicity 07/22/2024 Refill [facility] [address] [place] [address] Colette Diop RN 07/22/2024 Travel 07/15/2024 Telephone [facility] [address] [place] [phone] Candace Calderón [place] september07/13/2024 Refill [facility] [address] [place] [address] Kristy Wilder MD 07/12/2024 Refill [facility] [address] [place] [address] Kristy Wilder MD Therapeutic opioid induced constipation [...] housing situation today? I have kenton [place] 09/20/[address] you li ve. Do you have problems with any of the following? None of the above 09/20/2024 Food Insecurity Answer Date Recorded Within the past 12 months, y ou worried that your food would run out before you got money to buy more: Sometimes True 2024 Within the past 12 months,th e food you bought just didn't last and you didn't have enough money to get more: Sometimes True 09/20/2024 Transportation Answer Date Recorded In the past 12 months, has l ack of transportation kept you from medical appts, meetings, work or from getting things needed for daily living? No 09/20/2024 Utilities Answer Date Recorded In the past 12 months, has t he electric, gas, oil or water company threatened to shut off services in your home? No 09/20/2024 Depression Answer Date Recorded Patient Health Questionnaire-2 Score 0 10/31/2023 Internet Access Answer Date Recorded Internet Access Q1 Yes 09/20/2024 Internet Access Q2 Not on file 09/20/2024 Comments Unknown Sex and Gender Information Value [...] Description 09/28/2024 1:30 PM EDT Office Visit [facility] [address] [place] [address] Kristy Wilder MD [address] [place] [address] 10/18/2024 11:00 AM EDT Telemedicine [facility] [address] [place] [address] Colette Diop, BRICE [address] [place] [address] Health Maintenance Due Date Last Done Comments CT Colonography 1967 FIT DNA/Cologuard 1967 FIT 1967 FOBT 1967 Sigmoidoscopy 1967 Alcohol/Substance Use Screening 1979 HPV/Cotest 1997 Diabetes: Foot Exam 08/28/2023 08/27/2022, Cervical Cancer Screening 11/02/2023 Pap Smear 11/02/2023 11/01/2020 COVID-19 Vaccine ( season) 2024 05/14/2022, 05/27/2021, 09/22/2020, Additional history exists Influenza Vaccine (#1) 2024 , 05/14/2022, 05/27/2021 Diabetes: Hemoglobin A1C 07/08/2024 024, 12/19/2023, 07/23/2023, Additional history exists Diabetes: Urine Protein Screening 07/23/2024 07/23/2023, 11/23/2021 Depression Screening 10/30/2024 10/31/2023, 10/31/19 24 Lipid Panel 12/18/2024 12/19/2023, 07/10, 09/06/2022, Additional history exists Tobacco Screening 03/29/2025 03/29/2024 SDOH Screening 09/20/2025 09/20/2024 Mammogram 12/04/2025 12/05/2023, 11/08, 11/01/2021, Additional history [...] Procedure Name Priority Date/Time Associated Diagnosis Comments CT HEAD WO CONTRAST Routine 09/17/2024 1 :54 PM EDT URINALYSIS, COMPLETE, WITH REFLEX TO CULTURE Routine 09/17/2024 10:39 AM EDT HIGH SENSITIVITY TROPONIN I Routine 09/17/2024 10:27 AM EDT MAGNESIUM Routine 09/17/2024 10:27 AM EDT COMPREHENSIVE METABOLIC PANEL Routine 09/17/2024 10:27 AM EDT CBC WITH AUTO DIFFERENTIAL Routine 09/17/2024 10:27 AM EDT SARS COV2/INFLUENZA A/B AND RSV RNA QL NAAT Routine 09/17/2024 10:27 AM EDT CULTURE, URINE, ROUTINE Routine 09/17/2024 12:00 AM EDT CTA HEAD NECK W AND [...] 07/23/2023 10:05 AM EST Health care maintenance PAP/HPV Routine 11/01/2020 COLONOSCOPY Routine 11/23/2018 from Last 3 Months or Most Recently Relevant to Health Maintenance Results * CT Head w/o Contrast (09/17/2024 1:54 PM EDT) Anatomical Region Laterality Modality Head, Neck Computed Tomogra phy 09/17/2024 1:54 PM EDT Narrative 09/17/2024 2:29 PM EDT ? [facility] ?[address] ?[place] [address] ? CT Scan Report ? Signed ? Patient: Krys Gillis ?MR# ?? : [id number] ? : 1965 ?Acct:[id number] ? Age/Sex: 59 / F ?ADM Date: 09/17/24 ? Loc: HO.ED ? Attending Dr: ? Ordering Physician: Shonda Pimentel ?? Date of Service: 09/17/24 ?? Procedure(s): CT head/brain wo IV con ?? Accession Number(s): [id number] ? cc: Kristy Wilder MD; Shonda Pimentel ? Report Number: ?? [id number]: Total DLP = ??715.00 mGy-cm ?? EXAMINATION: CT HEAD WITHOUT IV CONTRAST ? HISTORY: BURKS, blurry vision. HTN. ? TECHNIQUE: ? Unenhanced helical CT of the head was performed per standard ?? departmental protocol. Coronal and sagittal reformats of the head were ?? also evaluated. One or more of the following techniques was used for ?? dose reduction: Automated exposure control, adjustment of the mA and/or ?? kV according to patient size, use of iterative reconstruction technique. ? DLP: 715 mGy-cm ? COMPARISON: There are comparison is made with the prior examination ?? dated 09/09/2024. ? FINDINGS: ? BRAIN: ??The brain parenchyma is unremarkable. There is normal ?? maldonado/white differentiation. The ventricular system is normal in size ?? and configuration. ??There is no mass effect or midline shift. ??No ?? intra- or extra-axial fluid collections are identified. ? SINUSES: The visualized paranasal sinuses are clear. ??The mastoid air ?? cells and middle ear cavities are well pneumatized. ? ORBITS: The visualized orbits are unremarkable. ? BONES/SOFT TISSUES: The extracranial soft tissues are unremarkable. The ?? calvarium is intact. No suspicious lytic or sclerotic lesions. ? CT/CT head/brain wo IV con ?? IMPRESSION: ?? No acute intracranial abnormality. ? Electronically signed by: ??Gabo Miller MD ??09/17/2024 02:27 PM EDT ?? RP ? Dictated By: ?Gabo Miller MD ? Signed By: ?<Electronically signed by Gabo Miller MD in OV> ?09/17/24 1427 ? DD/ 1354 ? TD/TT: 09/17/24 1411 ? Residential Sales Executive: ? Procedure Note Thad, Image - 09/17/[address] [place] [address] [address] Scan Report Signed Patient: Princess Gillis# : [id number] : 1965Acct:[id number] Age/Sex: 59 / FADM Date: 09/17/24 Loc: HO.ED Attending Dr: Ordering Physician: Shonda Pimentel Date of Service: 09/17/24 Procedure(s): CT head/brain wo IV con Accession Number(s): [id number] cc: Kristy Wilder MD; Shonda Pimentel Report Number: [id number]: Total DLP = 715.00 mGy-cm EXAMINATION: CT HEAD WITHOUT IV CONTRAST HISTORY: BURKS, blurry vision. HTN. TECHNIQUE: Unenhanced helical CT of the head was performed per standard departmental protocol. Coronal and sagittal reformats of the head were also evaluated. One or more of the following techniques was used for dose reduction: Automated exposure control, adjustment of the mA and/or kV according to patient size, use of iterative reconstruction technique. DLP: 715 mGy-cm COMPARISON: There are comparison is made with the prior examination dated 09/09/2024. FINDINGS: BRAIN: The brain parenchyma is unremarkable. There is normal maldonado/white differentiation. The ventricular system is normal in size and configuration. There is no mass effect or midline shift. No intra- or extra-axial fluid collections are identified. SINUSES: The visualized paranasal sinuses are clear. The mastoid air cells and middle ear cavities are well pneumatized. ORBITS: The visualized orbits are unremarkable. BONES/SOFT TISSUES: The extracranial soft tissues are unremarkable. The calvarium is intact. No suspicious lytic or sclerotic lesions. CT/CT head/brain wo IV con IMPRESSION: No acute intracranial abnormality. Electronically signed by: Gabo Miller MD 09/17/2024 02:27 PM EDT Dictated By: Gabo Miller MD Signed By: <Electronically signed by Gabo Miller MD in OV> 09/17/24 1427 DD/ 1354 TD/TT: 09/17/24 1411 Residential Sales Executive: [facility] External Provider IMG CT PROCEDURES Final Result * (ABNORMAL) Urinalysis, Complete, with Reflex to Culture (09/17/2024 10:39 AM EDT) Color Urine Yellow [facility] Appearance Urine Clear [facility] PH 5.5 5.0 - 9.0 [facility] Glucose Urine UA Negative Negative mg/dL [facility] Urine Blood Negative Negative [facility] Specific [place] - Urine 1.015 1.005 - 1.025 [facility] Urine Protein Negative Neg-Trace mg/dL [facility] Urine Ketones Negative Negative mg/dL [facility] Nitrite Urine Negative Negative [facility] Leukocyte Esterase Urine Large (3+)(A) Negative [facility] RBC Urine 0-2 0 - 2 /HPF [facility] Urine WBC 21-50(A) 0 - 5 /HPF [facility] Urine Squamous Epithelial Cell 6-10 0 - 2 /HPF [facility] Urine Bacteria None Seen None Seen [facility] Hyaline Casts, Urine 0-2 0 - 2 /LPF [facility] 09/17/2024 10:3 9 AM EDT 09/17/2024 10:45 AM EDT Narrative [facility] - 09/17/2024 10:55 AM EDT [id number], Clean Catch Generic External Data Provider LAB URINE ORDERAB LES Final Result Performing Organization Address [facility] Co de Phone Number [facility] [address] [place] [phone] * High Sensitivity Troponin I (09/17/2024 10:27 AM EDT) Only the most recent of2 resultswithin the time period is included. Pathologist [facility] TROPONIN I HIGH SENSITIVITY <2.7 <3.5 - 17.0 ng/L [facility] Comment:The Rodriges high sens itivity Troponin-I results should beused in conjunction with other diagnostic information suchas ECG, clinical observations and information, and patientsymptoms to aid in the diagnosis of CT. 09/17/2024 10:2 7 AM EDT 09/17/2024 2:09 PM EDT us Generic External Data Provider LAB BLOOD ORDERAB LES Final Result Performing Organization Address [facility]/ZIP Co de Phone Number [facility] [address] [place] [phone] * SARS-CoV-2 RNA, Influenza A/B, and RSV RNA, Ql NAAT (09/17/2024 10:27 AM EDT) Only the most recent of2 resultswithin the time period is included. Pathologist [facility] Influenza A PCR NEGATIVE Negative [facility] Influenza B PCR NEGATIVE Negative [facility] Resp Syncy Virus RNA Qual PCR NEGATIVE Negative [facility] SARS COV2 PCR NEGATIVE Negative [facility] Comment:All test results mus t [...] use by authorized laboratories.Testing performed on the [employer] GeneXpert utilizingreal-time RT-PCR.All SARS CoV2 and positive influenza A/B results arereported to [facility]. 09/17/2024 10:2 7 AM EDT 09/17/2024 10:34 AM EDT Generic External Data Provider LAB MICROBIOLOGY - GENERAL ORDERABLES Final Result [facility] [address] [place] [phone] * CBC auto differential (09/17/2024 10:27 AM EDT) Only the most recent of2 resultswithin the time period is included. White Blood Count 5.1 4.8 - 10.8 X10*3/uL [facility] Red Blood Count 4.65 4.20 - 5.50 X10*6/uL [facility] Hemoglobin 13.7 12.0 - 16.0 g/dl [facility] Hematocrit 39.9 37.0 - 47.0 % [facility] Mean Corpuscular Volume 85.8 80.0 - 98.0 fL [facility] Mean Corpuscular Hemoglobin 29.5 27.0 - 33.0 pg [facility] Mean Corpuscular HGB Conc 34.3 31.0 - 35.0 g/dl [facility] Red Cell Distribution Width 13.0 11.0 - 16.0 % [facility] Platelet Count 188 160 - 400 X10*3/uL [facility] Mean Platelet Volume 9.6 9.4 - 12.3 fL [facility] Neutrophils Percent Auto 58.6 45 - 73 % [facility] Imm Gran Pct Auto 0.2 0.0 - 0.4 % [facility] Lymphocytes Percent Auto 32.3 20 - 40 % [facility] Monocytes Percent Auto 5.4 2 - 11 % [facility] Eosinophils Percent Auto 3.1 0 - 4 % [facility] Basophils Percent Auto 0.4 0 - 2 % [facility] NRBC Pct Auto 0.0 0.0 - 0.2 /100WBC [facility] Neutrophils Absolute Auto 3.0 2.0 - 8.3 x10*3/uL [facility] Imm Gran Abs Auto 0.01 0.00 - 0.03 X10*3/uL [facility] Lymphocytes Absolute Auto 1.7 1.2 - 4.9 X10*3/uL [facility] Monocytes Absolute Auto 0.3 0.1 - 1.2 X10*3/uL [facility] Eosinophils Absolute Auto 0.2 0.0 - 0.4 X10*3/uL [facility] Basophils Absolute Auto 0.0 0.0 - 0.2 X10*3/uL [facility] NRBC Abs Auto 0.000 0.0 - 0.012 X10*3/uL [facility] 09/17/2024 10:2 7 AM EDT 09/17/2024 10:34 AM EDT us Generic External Data Provider LAB BLOOD ORDERAB LES Final Result [facility] [address] [place] [phone] [phone] * Magnesium (09/17/2024 10:27 AM EDT) Only the most recent of2 resultswithin the time period is included. Magnesium 1.6 1.6 - 2.6 mg/dL [facility] 09/17/2024 10:2 7 AM EDT 09/17/2024 10:34 AM EDT us Generic External Data Provider LAB BLOOD ORDERAB LES Final Result [facility] [address], [place] [phone] * (ABNORMAL) Comprehensive Metabolic Panel (09/17/2024 10:27 AM EDT) Sodium 142 135 - 145 mmol/L [facility] Potassium 4.2 3.3 - 5.1 mmol/L [facility] Chloride 109(H) 96 - 108 mmol/L [facility] Carbon Dioxide 27 22 - 29 mmol/L [facility] Anion Gap 10(L) 12 - 20 [facility] Urea Nitrogen (BUN) 14 9 - 16 mg/dL [facility] Creatinine, Serum 0.79 0.5 - 1.4 mg/dL [facility] Creatinine Clr Calc Pharmacy 87.1 [facility] Comment:Provided height and weight: 167.64 cm,86.8 kg.eGFR (calculated from the MDRD study equation) and eCrCl(calculated from the Cockcroft-Gault equation) are based ondifferent parameters and may not yield comparable results.If eCrCl result is absurd, please check patient'sheight/weight. Estimated Glomerular Filt Rate >60 [facility] Comment:Chronic Kidney Disea se: Estimated GFR < 60 mL/min/1.71u5Mopbgg Kidney Disease: Estimated GFR < 15 mL/min/1.73m2 Glucose 105 60 - 115 mg/dL [facility] Calcium 9.1 8.4 - 10.2 mg/dL [facility] Bilirubin, Total 0.4 0.0 - 1.0 mg/dL [facility] Aspartate Amino Transferase 50(H) 5 - 31 U/L [facility] Alanine Aminotransferase 70(H) 0 - 31 U/L [facility] Total Protein 6.9 6.5 - 8.0 g/dL [facility] Albumin Level 3.9 3.5 - 5.0 g/dL [facility] Alkaline Phosphatase 102 39 - 117 U/L [facility] 09/17/2024 10:2 7 AM EDT 09/17/2024 10:34 AM EDT Generic External Data Provider LAB BLOOD ORDERAB LES Final Result Performing Organization Address [facility] Co de Phone Number [facility] [address] [place] [phone] * Culture, Urine, Routine (09/17/2024 12:00 AM EDT) Urine Urine specimen obtained by clean catch procedure / Unknown 09/17/2024 09/17/2024 Comment:UACC Narrative [facility] - 09/18/2024 11:44 AM EDT Urine Culture No growth. Specimen Source: Urine clean catch Generic External Data Provider LAB MICROBIOLOGY - GENERAL ORDERABLES Final Result Performing Organization Address [facility] de Phone Number [facility] [address] [place] [address] [phone] * CTA Head Neck w/ and w/o Contrast (09/09/2024 6:51 PM EDT) Anatomical Region Laterality Modality Head, Neck Computed Tomogra phy 09/09/2024 6:51 PM EDT Narrative 09/09/2024 6:52 PM EDT ? [facility] ?[address] ?[place] [address] ? CT Scan Report ? Signed ? Patient: Elis,Krys ?MR# ?? : [id number] ? : 1965 ?Acct:[id number] ? Age/Sex: 59 / F ?ADM Date: 04/03/25 ? Loc: HO.ED ? Attending Dr: ? Ordering Physician: Ana Laura Brownlee DO ?? Date of Service: 09/09/24 ?? Procedure(s): CT angio head neck ?? Accession Number(s): [id number] ? cc: Ana Laura Brownlee DO; Kristy Wilder MD ? Report Number: ?? [id number]: Total DLP = 1492.00 mGy-cm ? CLINICAL [...] high-grade narrowing is seen in the ?? gqlxyp-mg-Wohrmm. ?? No aneurysm or vascular malformation is [...] by Bryson Mary MD in OV> ?09/09/24 185 ? DD/ 185 ? TD/TT: 09/09/24 185 ? Residential Sales Executive: ? Procedure Note Katharine Oneil - 09/09/[address] [address] [address] Scan Report Signed Patient: Princess Gillis# : [id number] : 1965Acct:[id number] Age/Sex: 59 / FADM Date: 09/09/24 Loc: HO.ED Attending Dr: Ordering Physician: Ana Laura Brownlee DO Date of Service: 09/09/24 Procedure(s): CT angio head neck Accession Number(s): [id number] cc: Ana Laura Brownlee DO; Kristy Wilder MD Report Number: [id number]: Total DLP = 1492.00 mGy-cm CLINICAL HISTORY: [...] focal high-grade narrowing is seen in the ttcglq-vi-Cotaay. No aneurysm or vascular malformation is identified. [...] in OV> 09/09/241851 DD/ 50 TD/TT: 09/09/241850 Residential Sales Executive: [facility] External Provider IMG CT PROCEDURES Final Result * (ABNORMAL) Prothrombin Time-INR (09/09/2024 4:57 PM EDT) Prothrombin Time 13.2(H) 10.9 - 12.4 SEC [facility] INTERNATIONAL NORM RATIO 1.1 0.9 - 1.1 [facility] Comment:INTERNATIONAL NORMAL IZED RATIO (INR) [...] ORDERAB LES Final Result Performing Organization Address [facility] Co de Phone Number [facility] [address] [place] [phone] * (ABNORMAL) Hepatic Function Panel (09/09/2024 4:57 PM EDT) Bilirubin, Total 0.3 0.0 - 1.0 mg/dL [facility] Bilirubin, Direct 0.1 0.0 - 0.5 mg/dL [facility] Aspartate Amino Transferase 41(H) 5 - 31 U/L [facility] Alanine Aminotransferase 56(H) 0 - 31 U/L [facility] Total Protein 6.3(L) 6.5 - 8.0 g/dL [facility] Albumin Level 3.8 3.5 - 5.0 g/dL [facility] Alkaline Phosphatase 99 39 - 117 U/L [facility] 09/09/2024 4:57 PM EDT 09/09/2024 5:03 PM EDT Generic External Data Provider LAB BLOOD ORDERAB LES Final Result Performing Organization Address [facility] Co de Phone Number [facility] [address] [place] [phone] * (ABNORMAL) Basic Metabolic Panel (09/09/2024 4:57 PM EDT) Sodium 143 135 - 145 mmol/L [facility] Potassium 4.4 3.3 - 5.1 mmol/L [facility] Chloride 110(H) 96 - 108 mmol/L [facility] Carbon Dioxide 27 22 - 29 mmol/L [facility] Anion Gap 10(L) 12 - 20 [facility] Urea Nitrogen (BUN) 18(H) 9 - 16 mg/dL [facility] Creatinine, Serum 0.73 0.5 - 1.4 mg/dL [facility] Creatinine Clr Calc Pharmacy 96.0 [facility] Comment:Provided height and weight: 167.64 cm,89.8 kg.eGFR (calculated from the MDRD study equation) and eCrCl(calculated from the Cockcroft-Gault equation) are based ondifferent parameters and may not yield comparable results.If eCrCl result is absurd, please check patient'sheight/weight. Estimated Glomerular Filt Rate >60 [facility] Comment:Chronic Kidney Disea se: Estimated GFR < 60 mL/min/1.44v5Vahggk Kidney Disease: Estimated GFR < 15 mL/min/1.73m2 Glucose 102 60 - 115 mg/dL [facility] Calcium 8.7 8.4 - 10.2 mg/dL [facility] 09/09/2024 4:57 PM EDT 09/09/2024 5:03 PM EDT us Generic External Data Provider LAB BLOOD ORDERAB LES Final Result Performing Organization Address City/State/[facility] Co de Phone Number [facility] [address] [place] [phone] * CT Abdomen Pelvis w/ Contrast (08/13/2024 9:03 AM EST) Anatomical Region Laterality Modality Body, Pelvis, Abdomen Computed T omography 08/13/2024 9:03 AM EST Narrative 08/13/2024 9:04 AM EST ? [place] [facility] ?[address] ?[place] [address] ? CT Scan Report ? Signed ? Patient: Elis,Krys ?MR# ?? : [id number] ? : 1965 ?Acct:[id number] ? Age/Sex: 59 / F ?ADM Date: 08/12/24 ? Loc: HO.CT ? Attending Dr: Justina Erickson MD ? Ordering Physician: Justina Erickson MD ?? Date of Service: 08/12/24 ?? Procedure(s): CT abdomen pelvis w IV con ?? Accession Number(s): [id number] ? cc: Justina Erickson MD; Kristy Wilder MD ? Report Number: ?? [id number]: Total DLP = ??927.64 mGy-cm ? CLINICAL [...] DD/ 0903 ? TD/TT: 08/13/24 0903 ? Residential Sales Executive: ? Procedure Note Katharine Oneil - 08/13/[address] [address] [address] Scan Report Signed Patient: Princess Gillis# : [id number] : 1965Acct:[id number] Age/Sex: 59 / FADM Date: 08/12/24 Loc: HO.CT Attending Dr: Justina Erickson MD Ordering Physician: Justina Erickson MD Date of Service: 08/12/24 Procedure(s): CT abdomen pelvis w IV con Accession Number(s): [id number] cc: Justina Erickson MD; Kristy Wilder MD Report Number: [id number]: Total DLP = 927.64 mGy-cm CLINICAL HISTORY: [...] in OV> 08/13/24903 DD/ 2 TD/TT: 08/13/24902 Residential Sales Executive: [facility] External Provider IMG CT PROCEDURES Final Result * CT Chest w/ Contrast (08/13/2024 8:57 AM EST) Anatomical Region Laterality Modality Body, Chest Computed Tomogra phy 08/13/2024 8:57 AM EST Narrative 08/13/2024 8:59 AM EST ? [facility] [facility] ?[address] ?[place] [address] ? CT Scan Report ? Signed ? Patient: Elis,Krys ?MR# ?? : [id number] ? : 1965 ?Acct:[id number] ? Age/Sex: 59 / F ?ADM Date: 08/12/24 ? Loc: HO.CT ? Attending Dr: Justina Erickson MD ? Ordering Physician: Justina Erickson MD ?? Date of Service: 08/12/24 ?? Procedure(s): CT chest w IV con ?? Accession Number(s): [id number] ? cc: Justina Erickson MD; Kristy Wilder MD ? Report Number: ?? [id number]: Total DLP = ?0.00 mGy-cm ? CLINICAL [...] MD in OV> ?08/13/24 0858 ? DD/ 0857 ? TD/TT: 08/13/24 0857 ? Residential Sales Executive: ? Procedure Note Thad, Image - 03/07/[address] [address] [address] Scan Report Signed Patient: Princess Gillis# : [id number] : 1965Acct:[id number] Age/Sex: 59 / FADM Date: 08/12/24 Loc: HO.CT Attending Dr: Justina Erickson MD Ordering Physician: Justina Erickson MD Date of Service: 08/12/24 Procedure(s): CT chest w IV con Accession Number(s): [id number] cc: Justina Erickson MD; Kristy Wilder MD Report Number: [id number]: Total DLP = 0.00 mGy-cm CLINICAL HISTORY: [...] in OV> 08/13/24 0858 DD/ TD/TT: 08/13/2457 Residential Sales Executive: [facility] External Provider IMG CT PROCEDURES Final Result * POCT Creatinine GFR (08/12/2024 8:45 AM EST) POCT Creatinine 1.1 0.5 - 1.4 mg/dL [facility] GFR POC 55 [facility] Comment:Chronic Kidney Disea se: Estimated GFR < 60 mL/min/1.99x2Vtmulc Kidney Disease: Estimated GFR < 15 mL/min/1.73m2 08/12/2024 8:45 AM EST 08/13/2024 9:59 AM EST Narrative [facility] - 08/13/2024 10:01 AM EST [id number] Generic External Data Provider LAB POINT OF CARE TEST DOCKED DEVICE ORDERABLES Final Result [facility] [address] [place] [phone] * POCT KAJAL-14 Urine Drug Screen (07/22/2024 12:01 PM EST) Urine Urine specimen obtained by clean catch procedure / Unknown 07/22/2024 12:01 PM EST Narrative Colette Diop RN - 07/22/2024 12:01 PM EST negative for THC, MOP, OXY, JACKIE, MET, AMP, BZO, BAR, MTD, BUPG, TCA, MDMA, PCP, PPX. Lot# [id number] Exp: 05-15-25 us Kristy Mosley MD POINT OF CARE NERY T ENTER/EDIT ORDERABLES Final Result * POCT HGB A1C (01/06/2024 2:56 PM EDT) Hemoglobin A1C 5.9 4.0 - 6.0 % QC Media Lot # [id number] Lot# Expiration Date ,397,830 Blood 01/06/2024 2:56 PM EDT Kristy Mosley MD POINT OF CARE NERY T ENTER/EDIT ORDERABLES Final Result * (ABNORMAL) Lipid Panel, Standard (12/19/2023 8:49 AM EDT) Triglycerides 68 <150 mg/dL [facility] Comment:Desirable Triglyceri de: less than 150 mg/dLBorderline High Triglyceride 150-199 mg/dLHigh Triglyceride: 200-499 mg/dLVery High Triglyceride: greater than or equal to 5OO mg/dL Cholesterol 135 <200 mg/dL [facility] Comment:Desirable Cholestero l: less than 200 mg/dLBorderline High Cholesterol: 200-239 mg/dLHigh Cholesterol: greater than 239 mg/dL LDL Cholesterol Calculated 92 <100 mg/dL [facility] Comment:Desirable LDL: less than 100 mg/dLNear Optimal/Above Optimal LDL: 110- 129 mg/dLBorderline High LDL: 130-159 mg/dLHigh LDL: 160-189 mg/dLVery High LDL: greater than or equal to 190 mg/dL HDL Cholesterol 30(L) >40 mg/dL [facility] Comment:Desirable HDL: great er than 40 mg/dL Note: This HDL assay may give artificially low results in patients with liver disease. Blood Venous blood specimen / Unknown 12/19/2023 8:49 AM EDT 12/19/2023 11:06 AM EDT us Kristy Mosley MD LAB BLOOD ORDERAB LES Final Result [facility] [address] [place] [phone] * BI Mammogram Screening Tomosynthesis Bilateral (12/05/2023 12:45 PM EDT) Anatomical Region Laterality Modality Breast Bilateral Mammography 12/05/2023 12:4 5 PM EDT Narrative 12/18/2023 1:26 PM EDT ? [facility] ? [address] ?[place] [address] ? Mammography Report ? Signed ? Patient: Elis,Krys ?MR# ?? : [id number] ? : 1965 ?Acct:[id number] ? Age/Sex: 58 / F ?ADM Date: 12/05/23 ? Loc: HO.MAMMO ? Attending Dr: Kristy Mosley MD ? Ordering Physician: Kristy Wilder MD ?Re ?? sults: 2Benign Findings ? Date of Service: 12/05/23 ?Follow Up: 1 Year From Orig ?? inal Mammogram ? Procedure(s): MM tomosynthesis screening BI ?? Accession Number(s): [id number] ? cc: Kristy Wilder MD ? EXAMINATION: ?? MM SCREENING DIGITAL BREAST TOMOSYNTHESIS, BILATERAL ? CLINICAL INFORMATION: ? Screening. Asymptomatic. ? COMPARISON: ?? Mammography: This study is compared with prior exams dating back to ?? 2020. ? TECHNIQUE: ?? Digital breast tomosynthesis is [...] by Chiquita Dick MD in OV> ? 12/18/233 ? DD/ 1245 ? TD/TT: ? Residential Sales Executive: ? Procedure Note Donestherter, Image - 12/18/2023 Mg [facility] [address] [place] [address] Mammography Report Signed Patient: Krys GillisMR# : [id number] : 1965Acct:[id number] Age/Sex: 58 / FADM Date: 12/05/23 Loc: HO.MAMMO Attending Dr: Kristy Mosley MD Ordering Physician: Kristy Wilder sults: 2Benign Findings Date of Service: 12/05/23Follow Up: 1 Year From Orig inal Mammogram Procedure(s): MM tomosynthesis screening BI Accession Number(s): [id number] cc: Kristy Wilder MD EXAMINATION: MM SCREENING [...] in OV> 12/18/23 1323 DD/ 1245 TD/TT: Residential Sales Executive: Kristy Mosley MD IMG BI PROCEDURES Final Result * Albumin, Random Urine W/Creatinine (07/23/2023 10:06 AM EST) Creatinine, Urine 213.14 mg/dL [facility] Microalbumin Urine 16.0 mg/L [facility] Microalbum Creatinine Ratio Ur 7.5 <30 ug/mg cr [facility] Comment:Albumin/Creatinine R atio Reference Ranges: Normal: < 30 ug/mg creatinine Microalbuminuria: 30 - 300 ug/mg creatinineClinical Albuminuria: > 300 ug/mg creatinine 07/23/2023 10:0 6 AM EST 07/23/2023 11:20 AM EST Result [facility] Kristy Mosley MD LAB URINE ORDERAB LES Final Result [facility] [address] [place] [phone] * Hepatitis C Antibody with Reflex to HCV, RNA, Quantitative, Real-Time PCR (07/23/2023 10:05 AM EST) Hepatitis C Antibody Nonreactive Nonreactive [facility] Comment:Antibodies to HCV no t detected; does not exclude early acuteHCV infection. Blood Venous blood specimen / Unknown 07/23/2023 10:05 AM EST 07/23/2023 11:26 AM EST Kristy Mosley MD LAB BLOOD ORDERAB LES Final Result Performing Organization Address [facility]/ZIP Co de Phone Number [facility] [address] [place] [phone] * HIV-1/2 Antigen and Antibodies, Fourth Generation, with Reflexes (07/23/2023 10:05 AM EST) HIV AB/AG Nonreactive Nonreactive [facility] Comment:HIV-1 p24 Ag and/or HIV-1/HIV-2 Ab not detected.A test result that is nonreactive does not exclude thepossibility of exposure to or infection with HIV-1 and/orHIV-2. Nonreactive results in this assay for individualswith prior exposure to HIV-1 and/or HIV-2 may be due toantigen and antibody levels that are below the limit ofdetection of this assay.The [employer] HIV Ag/Ab Combo assay result andsupplemental assay results should be interpreted inconjunction with the patient's clinical presentation,history and other laboratory results. If the results areinconsistent with clinical evidence, additional testing issuggested to confirm the result. Blood Venous blood specimen / Unknown 07/23/2023 10:05 AM EST 07/23/2023 11:26 AM EST Kristy Mosley MD LAB BLOOD ORDERAB LES Final Result Performing Organization Address [facility]/ZIP Co de Phone Number [facility] [address] [place] [phone] * Pap Smear (11/01/2020) HM Pap smear Performed Historical Provider HEALTH MAINTENANCE Final Result * Colonoscopy (11/23/2018) Colonoscopy Performed Historical Provider HEALTH MAINTENANCE Edited Result - Final from Last 3 Months or Most Recently Relevant to Health Maintenance Insurance [facility] C3 Care Teams Building Services Technician Relationship Specialty Start Date End Date Kristy Wilder MD [address] [place] [phone] PCP - General Internal Medicine 12/26/22
--- OUTSIDE RECORDS SUMMARY | 2024-09-21 18:45 | XMS_ITS | Encounter Summary ---
Author Organization [employer] Address [address] [place] [address] Care Team Providers Care Customs Inspector Name Role Phone Khloe Fonseca [facility] Primary Care Provider +1- [phone] Kristy Wilder MD Primary Care Pro vider Reason for Visit * Reason Onset Date Comments pt1 10/03/2022 Encounter Details Date Type Department Care Team (Late st Contact Info) Description 10/03/2022 Telephone [facility] [address] [place] [address] [phone] Khloe Fonseca [address] Dept [place] [address] pt1 Social History Tobacco Use Types Packs/Day [...] oct 07 2022 Time: 2:30 pm address: [address] [place] [address] [address], [place] [address] specialty: # visits: fueler: no Wheelchair: no Date:10/23/22 Time:02 pm address: [facility] specialty: PCP # visits: fueler: no Wheelchair: no Date:11/07/22 Time: 1:30 address: [facility] specialty: PCP # visits: fueler: no Wheelchair:no documented in this encounter Plan of Treatment Upcoming Encounters Date Type Department Care Team (Late st Contact Info) Description 09/28/2024 1:30 PM EDT Office Visit [facility] [address] [place] [address] Kristy Wilder MD 230 [place] [address] 10/18/2024 11:00 AM EDT Telemedicine [facility] 505 [place], [place] [phone] Colette Diop RN 505 [place], [place] [phone] documented as of this encounter Visit Diagnoses Not on filedocumented in this encounter Additional Health Concerns Assessment Noted Time PHQ-9 Depression Total Score: 11 022 1:16 PM EST documented as of this encounter Care Teams Customs Inspector Relationship Specialty Start Date End Date Khloe Fonseca FNP PCP - General Family Medicine 02/05/22 12/25/22 Kristy Wilder MD [address] [place] [address] PCP - General Internal Medicine 12/26/22 documented as of this encounter
--- OUTSIDE RECORDS SUMMARY | 2024-09-21 18:45 | XMS_ITS | Encounter Summary ---
Author Organization [employer] Address [address] [facility] 7t [place] [address] Care Team Providers Care Want Ad Supervisor Name Role Phone Kristy Wilder MD Primary Care Pro vider Reason for Visit * Reason Comments Care Coordination CHW outreach for SDO H food needs-referral completed Encounter Details Date Type Department Care Team (Latest Contact Info) Description 09/20/2024 Patient Outreach [facility] [address] [place] [phone] Kristy Wilder MD 230 [place] [address] Care Coordination (CHW outreach for SDOH food needs-referral completed /) Social History Tobacco Use Types Packs/Day Years [...] AM EDT documented as of this encounter Progress Notes * Mario Tran - 09/20/2024 2:38 PM EDT CHW Mario Tran, placed outbound call to patient for assistance with SDOH as a referral was received by the provider. Patient's name and were confirmed. Patient screened positive for the following SDOH food insecurities. CHW referral patient to the local list of pantries in the area for help. Patient verbalizes understanding, and able to agree with plan to follow up. Patient educated on ex tended clinic hours on Mondays through Wednesdays, and Walk-In Urgent Care Located in [facility] of [facility].Patient provided with after-hours line for [facility], , which offer night time triage serviceand option to transfer to real estate consultant provider if needed. documented in this encounter Plan of Treatment Upcoming Encounters Date Type Department Care Team (Late st Contact Info) Description 09/28/2024 1:30 PM EDT Office Visit [facility] [address] [place] [address] Kristy Wilder MD 230 [place] [address] 10/18/2024 11:00 AM EDT Telemedicine [facility] [address] [facility] [place] [address] Colette Diop, RN 505 [place], [place] [phone] documented as of this encounter Visit Diagnoses Not on filedocumented in this encounter Additional Health Concerns Assessment Noted Time PHQ-9 Depression Total Score: 4 10/31/19 24 1:38 PM EDT documented as of this encounter Care Teams Want Ad Supervisor Relationship Specialty Start Date End Date Kristy Wilder MD [address] [place] [phone] PCP - General Internal Medicine 12/26/22 documented as of this encounter
--- OUTSIDE RECORDS SUMMARY | 2024-09-21 18:45 | XMS_ITS | Encounter Summary ---
Author Organization [employer] Address [address] [place] [address] Care Team Providers Care Candy Packer Name Role Phone Khloe Fonseca [facility] Primary Care Provider +1- [phone] Kristy Wilder MD Primary Care Pro vider Reason for Visit * Reason Onset Date Comments pt1 10/16/2022 Encounter Details Date Type Department Care Team (Late st Contact Info) Description 10/16/2022 Telephone [facility] [address] [place] [phone] Khloe Fonseca [address] Dept [place] [address] pt1 Social History Tobacco Use Types Packs/Day [...] Nannette Whittaker - 10/24/2022 10:19 AM EDT Derrickman Helper called and left voicemail for pt stating Pt1 Request was approved and she may call to schedule * Telephone Encounter - Nannette Whittaker - 10/24/2022 10:17 AM EDT Patient will recieve approval / denial letter via mail. PT-1 Request [id number] Pending - [facility] Pulmonology [address] [place] [address] Dr [place] ID * Telephone Encounter - Eddie Sousa - 10/21/2022 10:14 AM EDT Tc from pt requesting status on PT1. Date: October 22, 2022 Time: 2:45 pm address:[address] [place] [address] specialty:Pulmonology Center # visits: delivery route driver: no Wheelchair: no * Telephone Encounter - Marko Rodriguez - 10/16/2022 11:51 AM EDT Tc from pt requesting pt1 ride Date: october 22, 2022 Time: 2:45 pm address:[address] [place] [address] specialty:Pulmonology Center # visits: delivery route driver: no Wheelchair: no documented in this encounter Plan of Treatment Upcoming Encounters Date Type Department Care Team (Late st Contact Info) Description 09/28/2024 1:30 PM EDT Office Visit [facility] 230 [place], [place] [phone] Kristy Wilder MD 230 [place], [place] 10/18/2024 11:00 AM EDT Telemedicine [facility] PEDS 505 [place] [address] Colette Diop, BRICE 505 [place], [place] documented as of this encounter Visit Diagnoses Not on filedocumented in this encounter Additional Health Concerns Assessment Noted Time PHQ-9 Depression Total Score: 11 022 1:16 PM EST documented as of this encounter Care Teams Candy Packer Relationship Specialty Start Date End Date Khloe Fonseca FNP PCP - General Family Medicine 02/05/22 12/25/22 Kristy Wilder MD [address] [place] [address] PCP - General Internal Medicine 12/26/22 documented as of this encounter
--- OUTSIDE RECORDS SUMMARY | 2024-09-21 18:45 | XMS_ITS | Encounter Summary ---
Author Organization [employer] Address [address] [facility] [place] [address] Care Team Providers Care Glove Cuffer Name Role Phone Kristy Wilder MD Primary Care Pro vider Reason for Visit * Reason Onset Date Comments PT-1 08/03/2024 Encounter Details Date Type Department Care Team ([facility] st Contact Info) Description 08/03/2024 Telephone [facility] 230 [place], [place] [phone] Kristy Wilder MD 230 [place], [place] [phone] PT-1 Social History Tobacco Use Types Packs/Day [...] Y/N: Yes Provider name or facility name: [facility] Facility Address: [address] [place] [address] Escort needed: Y/N: No Do you have a wheelchair: Y/N: No If yes- Manual or electric: N/A Visits: Twice monthly documented in this encounter Plan of Treatment Upcoming Encounters Date Type Department Care Team (Late st Contact Info) Description 09/28/2024 1:30 PM EDT Office Visit [facility] [address] [place] [address] Kristy Wilder MD [address] [place] [address] 10/18/2024 11:00 AM EDT Telemedicine [facility] MED & PEDS 505 [place] [address] Colette Diop RN 505 [place] [address] documented as of this encounter Visit Diagnoses Not on filedocumented in this encounter Additional Health Concerns Assessment Noted Time PHQ-9 Depression Total Score: 4 10/31/19 24 1:38 PM EDT documented as of this encounter Care Teams Glove Cuffer Relationship Specialty Start Date End Date Kristy Wilder MD [address] [place] [address] PCP - General Internal Medicine 12/26/22 documented as of this encounter
--- OUTSIDE RECORDS SUMMARY | 2024-09-21 18:45 | XMS_ITS | Encounter Summary ---
Author Organization [employer] Address [address] [facility] 7t [place] [address] Care Team Providers Care Government Sales Manager Name Role Phone Kristy Wilder MD Primary Care Pro vider Reason for Visit * Reason Comments Pre-visit Planning SDOH positive. Tobac co screening negative. Encounter Details Date Type Department Care Team ([facility] st Contact Info) Description 09/20/2024 Patient Outreach [facility] 505 [place], [place] [phone] Kristy Wilder MD 230 [place] [address] Pre-visit Planning (SDOH positive. Tobacco screening negative.) Social History Tobacco Use Types Packs/Day Years [...] as of this encounter Progress Notes * Susan Rodriguez - 09/20/2024 11:46 AM EDT CC Susan West placed successful outbound call to patient for pre-visit planning. Patient name and confirmed. Patient confirms appt date and time, and has transportation arrangements. Biggest concern for appointment at this time is blood sugar and blood pressure have been elevated. Appropriate screenings completed in anticipation of appointment. SDOH positive, patient needs assistance with food insecurities. documented in this encounter Plan of Treatment Upcoming Encounters Date Type Department Care Team (Late st Contact Info) Description 09/28/2024 1:30 PM EDT Office Visit [facility] 230 [place] [address] Kristy Wilder MD [address] [place] [address] 10/18/2024 11:00 AM EDT Telemedicine [facility] MED & PEDS 505 [place], [place] [phone] Colette Diop, BRICE 505 [place] [address] documented as of this encounter Visit Diagnoses Not on filedocumented in this encounter Additional Health Concerns Assessment Noted Time PHQ-9 Depression Total Score: 4 05/24/20 24 1:38 PM EDT documented as of this encounter Care Teams Government Sales Manager Relationship Specialty Start Date End Date Kristy Wilder MD [address] [place] [address] PCP - General Internal Medicine 12/26/22 documented as of this encounter
--- OUTSIDE RECORDS SUMMARY | 2024-09-21 18:45 | XMS_ITS | Encounter Summary ---
Author Organization [employer] Address [address] [facility] 7t [place] [address] Care Team Providers Care Veterinary Assistant Technician Name Role Phone Kristy Wilder MD Primary Care Pro vider Reason for Visit * Reason Comments Med Refill Encounter Details Date Type Department Care Team ([facility] st Contact Info) Description 09/10/2023 Refill [facility] 230 [place], [place] [phone] Kristy Wilder MD 230 [place], [place] [phone] Type 2 diabetes mellitus with diabetic polyneuropathy, without long-term current use of insulin ([facility]) Social History Tobacco Use Types Packs/Day Years [...] Description 09/28/2024 1:30 PM EDT Office Visit [facility] 230 [place], [place] [phone] Kristy Wilder MD [address] [place] [address] 10/18/2024 11:00 AM EDT Telemedicine [facility] P[facility]S 505 [place], [place] [phone] Colette Diop, BRICE 505 [place] [address] documented as of this encounter Visit Diagnoses Diagnosis Type 2 diabetes mellitus with diabetic polyneuropathy, without long-term current use of insulin ([facility]) documented in this encounter Additional Health Concerns Assessment Noted Time PHQ-9 Depression Total Score: 16 023 11:20 AM EDT documented as of this encounter Care Teams Veterinary Assistant Technician Relationship Specialty Start Date End Date Kristy Wilder MD [address] [place] [phone] PCP - General Internal Medicine 12/26/22 documented as of this encounter
--- OUTSIDE RECORDS SUMMARY | 2024-09-21 18:45 | XMS_ITS | Encounter Summary ---
Author Organization [employer] Address [address] [facility] 7 [place] [address] Care Team Providers Care Protective Signal Installer Helper Name Role Phone Kristy Wilder MD Primary Care Pro vider Reason for Visit * Reason Onset Date Comments chart prep 09/20/2024 Encounter Details Date Type Department Care Team ([facility] st Contact Info) Description 09/20/2024 Telephone [facility] 230 [place], [place] [phone] Kristy Wilder MD 230 [place], [place] [phone] chart prep Social History Tobacco Use Types Packs/Day Years [...] encounter Miscellaneous Notes * Telephone Encounter - Candace Calderón [place] - 09/20/2024 4:08 PM EDT Chart Prep Labs: done Images: done Vaccines due: Covid Due and Flu Due Referrals: Completed Screenings: Mammogram and Foot Exam Overdue care gaps: Sbirt, Disability , and Oral Health documented in this encounter Plan of Treatment Upcoming Encounters Date Type Department Care Team (Late st Contact Info) Description 09/28/2024 1:30 PM EDT Office Visit [facility] 230 [place] [address] Kristy Wilder MD 230 [place] [address] 10/18/2024 11:00 AM EDT Telemedicine [facility] MED [facility] PEDS 505 [place] [address] Colette Diop, BRICE [address] [place] [address] documented as of this encounter Visit Diagnoses Not on filedocumented in this encounter Additional Health Concerns Assessment Noted Time PHQ-9 Depression Total Score: 4 10/31/19 24 1:38 PM EDT documented as of this encounter Care Teams Protective Signal Installer Helper Relationship Specialty Start Date End Date Kristy Wilder MD [address] [place] [address] PCP - General Internal Medicine 12/26/22 documented as of this encounter
--- OUTSIDE RECORDS SUMMARY | 2024-09-21 18:45 | XMS_ITS | Encounter Summary ---
Author Organization [employer] Address [address] [facility] 7[address] [place] [address] Care Team Providers Care Cyber Special Agent Name Role Phone Kristy Wilder MD Primary Care Pro vider Reason for Visit * Reason Onset Date Comments Nurse Triage 08/08/2023 Encounter Details Date Type Department Care Team ([facility] st Contact Info) Description 08/08/2023 Telephone [facility] 230 [place], [place] [phone] Kristy Wilder MD 230 [place], [place] [phone] Nurse Triage Social History Tobacco Use Types [...] EST Triage call returned to patient with [place] Director General [phone]. Patient with soft voice and weakness. Received [...] to access 911 EMS for transport to [facility] ED ( followed by Oncologist) there. PCP [...] accepted this outcome Please contact pt at [phone] (Luxembourgish) documented in this encounter Plan of Treatment Upcoming Encounters Date Type Department Care Team (Late st Contact Info) Description 09/28/2024 1:30 PM EDT Office Visit [facility] 230 [place] [address] Kristy Wilder MD [address] [place] [address] 10/18/2024 11:00 AM EDT Telemedicine [facility] MED & PEDS 505 [place], [place] [phone] Colette Diop, BRICE 505 [place], [place] [phone] documented as of this encounter Visit Diagnoses Not on filedocumented in this encounter Additional Health Concerns Assessment Noted Time PHQ-9 Depression Total Score: 16 023 11:20 AM EDT documented as of this encounter Care Teams Cyber Special Agent Relationship Specialty Start Date End Date Kristy Wilder MD [address] [place] [address] PCP - General Internal Medicine 12/26/22 documented as of this encounter
--- OUTSIDE RECORDS SUMMARY | 2024-09-21 18:45 | XMS_ITS | Encounter Summary ---
Author Organization [employer] Address [address] [facility] [address] [place] [address] Care Team Providers Care Software Sales Name Role Phone Kristy Wilder MD Primary Care Pro vider Reason for Visit * Reason Comments Med Refill Encounter Details Date Type Department Care Team ([facility] st Contact Info) Description 09/25/2023 Refill [facility] MEDICINE [address] [place], [place] [phone] Kristy Wilder MD [address] [place], [place] [phone] Primary insomnia Social History Tobacco Use Types [...] Office Visit [facility] MEDICINE [address] [place] [address] Kristy Wilder MD [address] [place] [address] 10/18/2024 11:00 AM EDT Telemedicine [facility]C MED & PEDS [address] [place], [place] [phone] Colette Diop, BRICE 505 [place] [address] documented as of this encounter Visit Diagnoses Diagnosis Primary insomnia Persistent disorder of initiating or maintaining sleep documented in this encounter Additional Health Concerns Assessment Noted Time PHQ-9 Depression Total Score: 16 023 11:20 AM EDT documented as of this encounter Care Teams Software Sales Relationship Specialty Start Date End Date Kristy Wilder MD [address] [place] [address] PCP - General Internal Medicine 12/26/22 documented as of this encounter
--- OUTSIDE RECORDS SUMMARY | 2024-09-21 18:45 | XMS_ITS | Clinical Summary ---
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 Care Eviscerator Name Role Phone ANDREINA MENCHACA, CLARENCE Unavailable Unavailable TATI NARVAEZ, ALBERTA Unavailable Unavailable Payers Payer Name Policy Type Policy Number Effective Date Expira tion Date MEDICAID [facility] [id number] Problems Condition Name Condition Details Condition Category Status Onset Date Resolution Date Last Treatment Date Treating Clinician Comments MAJOR DEPRESSIVE DISORDER, RECURRENT, MODERATE Active 3- 00:00: 00 TYPE 2 DIABETES MELLITUS WITHOUT COMPLICATION S Active 4-06 00:00: 00 Allergies, Adverse Reactions, Alerts Allergy Name Allergy Type Status Severity Reaction(s) Onset Date Inactive Date Treating Clinician Comments NKA Propensity to adverse reactions Active 2024-08 23:31:5 0 Medications Ordered Medication Name Filled Medication Name Start Date Stop Date Current Medication? Ordering Clinician Indication Dosage Frequency Signature (SIG) Comments Components Ambien 5 mg tablet 06-25 00:00: 00 09-01 23:59 :00 No [id number] 5 mg BEDTIME 5 mg BEDTIME (route: oral) Med Classific ation: Central Nervous System Agents buspirone 7.5 mg tablet 06-25 00:00: 00 09-01 23:59 :00 No [id number] 7.5 mg 2 TIMES DAILY 7.5 mg 2 TIMES DAILY (route: oral) Med Classific ation: Central Nervous System Agents Eliquis 5 mg tablet 06-25 00:00: 00 09-01 23:59 :00 No [id number] 5 mg 2 TIMES DAILY 5 mg 2 TIMES DAILY (route: oral) Med Classific ation: Hematolog ical Agents famotidine 20 mg tablet 06-25 00:00: 00 09-01 23:59 :00 No [id number] 20 mg 2 TIMES DAILY 20 mg 2 TIMES DAILY (route: oral) Med Classific ation: Gastroint estinal Therapy Agents levothyroxi ne 112 mcg tablet 06-25 00:00: 00 09-01 23:59 :00 No [id number] 112 mcg EVERY AM 112 mcg EVERY AM (route: oral) Med Classific ation: Endocrine losartan 25 mg tablet 06-25 00:00: 00 09-01 23:59 :00 No [id number] 25 mg NOON 25 mg NOON (route: oral) Med Classific ation: Cardiovas cular Therapy Agents metformin 500 mg tablet 06-25 00:00: 00 09-01 23:59 :00 No [id number] 500 mg DIRECTED 500 mg DIRECTED (route: oral) Med Classific ation: Endocrine mirtazapine 7.5 mg tablet 06-25 00:00: 00 09-01 23:59 :00 No [id number] 7.5 mg BEDTIME 7.5 mg BEDTIME (route: oral) Med Classific ation: Central Nervous System Agents Narcan 4 mg/actuatio n nasal spray 06-25 00:00: 00 09-01 23:59 :00 No [id number] 2 spray DIRECTED 2 spray DIRECTED (route: nasal) Med Classific ation: Antidotes and other Reversal Agents ondansetron 4 mg disintegrat ing tablet 06-25 00:00: 00 09-01 23:59 :00 No [id number] 4 mg EVERY 8 HOURS 4 mg EVERY 8 HOURS (route: oral) Med Classific ation: Gastroint estinal Therapy Agents oxycodone 5 mg tablet 06-25 00:00: 00 09-01 23:59 :00 No [id number] 5 mg EVERY 12 HOURS 5 mg EVERY 12 HOURS (route: oral) Med Classific ation: Analgesic , Anti-infl ammatory or Antipyret ic propranolol 10 mg tablet 06-25 00:00: 00 09-01 23:59 :00 No [id number] 17 mg 2 TIMES DAILY 17 mg 2 TIMES DAILY (route: oral) Med Classific ation: Cardiovas cular Therapy Agents sertraline 100 mg tablet 06-25 00:00: 00 09-01 23:59 :00 No [id number] 100 mg NOON 100 mg NOON (route: oral) Med Classific ation: Central Nervous System Agents buspirone 10 mg tablet 09-05 00:00: 00 Yes [id number] 1 tablet 2 TIMES DAILY 1 tablet 2 TIMES DAILY (route: oral) Med Classific ation: Central Nervous System Agents Colace 100 mg capsule 09-04 00:00: 00 Yes [id number] 1 capsule BEDTIME 1 capsule BEDTIME (route: oral) Med Classific ation: Gastroint estinal Therapy Agents Eliquis 5 mg tablet 09-04 00:00: 00 Yes [id number] 1 tablet 2 TIMES DAILY 1 tablet 2 TIMES DAILY (route: oral) Med Classific ation: Hematolog ical Agents levothyroxi ne 112 mcg tablet 09-04 00:00: 00 Yes [id number] 1 tablet EVERY AM 1 tablet EVERY AM (route: oral) Med Classific ation: Endocrine losartan 25 mg tablet 09-04 00:00: 00 Yes [id number] 1 tablet NOON 1 tablet NOON (route: oral) Med Classific ation: Cardiovas cular Therapy Agents metformin 500 mg tablet 09-04 00:00: 00 Yes [id number] 1 tablet EVERY AM 1 tablet EVERY AM (route: oral) Med Classific ation: Endocrine metformin 500 mg tablet 09-05 00:00: 00 Yes [id number] 2 tablet EVERY PM 2 tablet EVERY PM (route: oral) Med Classific ation: Endocrine Pepcid 20 mg tablet 09-04 00:00: 00 Yes [id number] 1 tablet 2 TIMES DAILY 1 tablet 2 TIMES DAILY (route: oral) Med Classific ation: Gastroint estinal Therapy Agents propranolol 10 mg tablet 09-04 00:00: 00 Yes [id number] 1 tablet 2 TIMES DAILY 1 tablet 2 TIMES DAILY (route: oral) Med Classific ation: Cardiovas cular Therapy Agents sertraline 100 mg tablet 09-04 00:00: 00 Yes [id number] 1 tablet NOON 1 tablet NOON (route: oral) Med Classific ation: Central Nervous System Agents mirtazapine 45 mg tablet 09-04 00:00: 00 Yes [id number] 1 tablet BEDTIME 1 tablet BEDTIME (route: oral) Med Classific ation: Central Nervous System Agents hydroxyzine HCl 10 mg tablet 09-04 00:00: 00 Yes [id number] 1-2 tablet 2 TIMES DAILY 1-2 tablet 2 TIMES DAILY (route: oral) Med Classific ation: Central Nervous System Agents Vital Signs Vital Name Observation Time Observation Value Commen ts Temperature 2024-09-13 17:39:00.000 97.3 [degF] Temperature 2024-09-10 17:26:00.000 97.1 [degF] Temperature 2024-09-08 17:13:00.000 98.2 [degF] Temperature 2024-09-06 17:52:00.000 96.7 [degF] Temperature 2024-09-04 13:45:00.000 98.4 [degF] Height 2024-09-04 22:42:35.000 65 [in_us] Pulse 2024-09-13 17:39:00.000 72 /min Pulse 2024-09-10 17:26:00.000 90 /min Pulse 2024-09-08 17:13:00.000 71 /min Pulse 2024-09-06 17:52:00.000 72 /min Pulse 2024-09-04 13:45:00.000 64 /min O2 Saturation (%) 2024-09-04 13:45:00.000 100 % Respirations 2024-09-13 17:39:00.000 16 /min Respirations 2024-09-10 17:26:00.000 16 /min Respirations 2024-09-08 17:13:00.000 16 /min Respirations 2024-09-06 17:52:00.000 16 /min Respirations 2024-09-04 13:45:00.000 16 /min Systolic Blood Pressure 2024-09-13 17:39:00.000 157 mm [Hg] Systolic Blood Pressure 2024-09-10 17:26:00.000 145 mm [Hg] Systolic Blood Pressure 2024-09-08 17:13:00.000 150 mm [Hg] Systolic Blood Pressure 2024-09-06 17:52:00.000 152 mm [Hg] Systolic Blood Pressure 2024-09-04 13:45:00.000 146 mm [Hg] Diastolic Blood Pressure 2024-09-13 17:39:00.000 90 mm [Hg] Diastolic Blood Pressure 2024-09-10 17:26:00.000 88 mm [Hg] Diastolic Blood Pressure 2024-09-08 17:13:00.000 70 mm [Hg] Diastolic Blood Pressure 2024-09-06 17:52:00.000 [...] AWARENESS FOR SAFETY AND WILL NOTIFY CLINICAL EPIC TRAINER AND PHYSICIAN/PROVIDER WITH ANY CHANGE IN CONDITION. [code = SKILLED NURSE WILL MAINTAIN SITUATIONAL AWARENESS FOR SAFETY AND WILL NOTIFY CLINICAL EPIC TRAINER AND PHYSICIAN/PROVIDER WITH ANY CHANGE IN CONDITION.] [...] CARE WILL BE ESTABLISHED THAT MEETS PATIENT'S ALF NEEDS AND INCLUDES PATIENT GOAL FOR HOME [...] End Date/Time Encounter Type Admission Type Attending [facility] Care Department Encounter ID Discharge Date Discharge Status Discharge Condition Discharge Reason Percent Goals Met 2024-09-04 00:00:00 2024-11-02 00:00:00 Outpatient ALBERTA HERNANDEZ [facility] [id number] 8.57
--- OUTSIDE RECORDS SUMMARY | 2024-09-21 18:45 | XMS_ITS | Encounter Summary ---
Author Organization [employer] Address [address] [facility] [address] [place] [address] Care Team Providers Care Water System Operator Name Role Phone Kristy Wilder MD Primary Care Pro vider Reason for Visit * Reason Comments Med Refill Encounter Details Date Type Department Care Team ([facility] st Contact Info) Description 05/15/2023 Refill [facility] MEDICINE [address] [place], [place] [phone] Evelina [place] MD [address] [place], [place] [phone] Social History Tobacco Use Types Packs/Day Years [...] 1:30 PM EDT Office Visit [facility] MEDICINE [address] [place] [address] Kristy Wilder MD [address] [place] [address] 10/18/2024 11:00 AM EDT Telemedicine [facility] CHC MED & PEDS [address] [place], [place] [phone] Colette Diop, BRICE 505 [place] [address] documented as of this encounter Visit Diagnoses Not on filedocumented in this encounter Additional Health Concerns Assessment Noted Time PHQ-9 Depression Total Score: 16 023 11:20 AM EDT documented as of this encounter Care Teams Water System Operator Relationship Specialty Start Date End Date Kristy Wilder MD [address] [place], [place] [phone] PCP - General Internal Medicine 12/26/22 documented as of this encounter
--- OUTSIDE RECORDS SUMMARY | 2024-09-21 18:45 | XMS_ITS | Encounter Summary ---
Author Organization [employer] Address [address] [facility] [address] [place] [address] Care Team Providers Care Chip Frier Name Role Phone Kristy Wilder MD Primary Care Pro vider Reason for Visit * Reason Onset Date Comments Reschedule 07/07/2023 Encounter Details Date Type Department Care Team ([facility] st Contact Info) Description 07/07/2023 Telephone [facility] MEDICINE [address] [place], [place] [phone] Kristy Wilder MD [address] [place], [place] [phone] Reschedule Social History Tobacco Use Types Packs/Day [...] Tc from pt requesting to r/s 07/25 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 Please contact pt at [phone] ([place]) documented in this encounter Plan of Treatment Upcoming Encounters Date Type Department Care Team (Late st Contact Info) Description 09/28/2024 1:30 PM EDT Office Visit [facility] MEDICINE [address] [place] [address] Kristy Wilder MD [address] [place] [address] 10/18/2024 11:00 AM EDT Telemedicine [facility] CHC MED & PEDS 505 [place] [address] Colette Diop, RN [address] [place] [address] documented as of this encounter Visit Diagnoses Not on filedocumented in this encounter Additional Health Concerns Assessment Noted Time PHQ-9 Depression Total Score: 16 023 11:20 AM EDT documented as of this encounter Care Teams Chip Frier Relationship Specialty Start Date End Date Kristy Wilder MD [address] [place] [address] PCP - General Internal Medicine 12/26/22 documented as of this encounter
--- OUTSIDE RECORDS SUMMARY | 2024-09-21 18:46 | XMS_ITS ---
Author Organization [facility] Address [address] [place] [address] Care Team Providers Care Traffic Police Officer Name Role Phone Davon Wu Primary Care Provider [phone] Active Problems Problem Noted Date Diagnosed Date [...]
--- OUTSIDE RECORDS SUMMARY | 2024-09-21 18:46 | XMS_ITS | Clinical Summary ---
Author Organization [facility] Address [address] [place] [address] Care Team Providers Care Quality Specialist Name Role Phone Bryce Terrietaijuice Partha Primary Care Provider [phone] Allergies Active Allergy Reactions Criticality Noted Date [...] series) 2042 Medical Devices Implanted Type Area Library Manager Device Identifier Shelf Expiration Date Model / Serial / Lot System Closure Suture Medicated Perclose Proglide 6fr - [id number] Implanted:Qty: 1 on 02/04/2019 at [facility] Implant [employer] [id number] 126 73-03 / / Coil Embolization Neurovascular Enterprise 0.035in [id number] Tornado - [id number] Implanted:Qty: 1 on 02/04/2019 at [facility] Implant [employer] [id number] 10/11/19 23 [id number] / / [id number] Coil Embolization Neurovascular Enterprise 0.035in [id number] Tornado - [id number] Implanted:Qty: 1 on 02/04/2019 at [facility] Implant [employer] [id number] 08/03/19 24 [id number] / / [id number] Coil Embolization Neurovascular Enterprise 0.035in [id number] Tornado - [id number] Implanted:Qty: 1 on 02/04/2019 at [facility] Implant [employer] [id number] 08/03/19 24 [id number] / / [id number] Coil Embolization Neurovascular Enterprise 0.035in [id number] Tornado - [id number] Implanted:Qty: 1 on 02/04/2019 at [facility] Implant [employer] [id number] 08/03/19 24 [id number] / / [id number] [place] [address] Care Teams Quality Specialist Relationship Specialty Start Date End Date Davon Wu [address] [place] [address] PCP - General Internal Medicine 09/28/18
--- OUTSIDE RECORDS SUMMARY | 2024-09-21 18:46 | XMS_ITS | Encounter Summary ---
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 and dx on letter to be faxed to [phone] documented in this encounter Plan of Treatment Upcoming Encounters Date Type Department Care Team (Late st Contact Info) Description 09/28/2024 1:30 PM EDT Office Visit [facility] MEDICINE [address] [place] [address] Kristy Wilder MD [address] [place] [address] 10/18/2024 11:00 AM EDT Telemedicine [facility] CHC MED & PEDS [address] [place], [place] [phone] Colette Diop, BRICE [address] [place], [place] [phone] documented as of this encounter Visit Diagnoses Not on filedocumented in this encounter Additional Health Concerns Assessment Noted Time PHQ-9 Depression Total Score: 11 022 1:16 PM EST documented as of this encounter Care Teams Briquette Maker Relationship Specialty Start Date End Date Kristy Wilder MD [address] [place] [address] PCP - General Internal Medicine 12/26/22 documented as of this encounter
--- OUTSIDE RECORDS SUMMARY | 2024-09-21 18:46 | XMS_ITS | Referral Summary ---
Author Organization [facility] Address [address] [place] [address] Care Team Providers Care Rail Technician Name Role Phone Bryce Rufustaijuice Partha Primary Care Provider [phone] Allergies Active Allergy Reactions Criticality Noted Date Comments Other Rash 02/04/2019 Contax, medication for [place] Medications buPROPion XL (WELLBUTRIN XL) 150 mg [...] on file Medical Devices Implanted Type Area Closing Coordinator Device Identifier Shelf Expiration Date Model / Serial / Lot System Closure Suture Medicated Perclose Proglide 6fr - [id number] Implanted:Qty: 1 on 02/04/2019 at [facility] Implant [employer] [id number] 126 73-03 / / Coil Embolization Neurovascular Nikolski 0.035in [id number] Tornado - [id number] Implanted:Qty: 1 on 02/04/2019 at [facility] Implant [employer] [id number] 10/11/19 23 [id number] / / [id number] Coil Embolization Neurovascular Nikolski 0.035in [id number] Tornado - [id number] Implanted:Qty: 1 on 02/04/2019 at [facility] Implant [employer] [id number] 08/03/19 24 [id number] / / [id number] Coil Embolization Neurovascular Nikolski 0.035in [id number] Tornado - [id number] Implanted:Qty: 1 on 02/04/2019 at [facility] Implant [employer] [id number] 08/03/19 [id number] / / [id number] Coil Embolization Neurovascular Nikolski 0.035in [id number] Justin - [id number] Implanted:Qty: 1 on 02/04/2019 at [facility] Implant [employer] [id number] 08/03/19 [id number] / / [id number] [place] [address] Care Teams Rail Technician Relationship Specialty Start Date End Date Davon Wu [address] [place] [address] PCP - General Internal Medicine 09/28/18
--- OUTSIDE RECORDS SUMMARY | 2024-09-21 18:46 | XMS_ITS | Encounter Summary ---
Author Organization [employer] [facility] Address [address] [place] [address] Care Team Providers Care Business Improvement Manager Name Role Phone Khloe Fonseca [facility] Primary Care Provider [phone] Kristy Wilder MD Primary Care Pro vider Reason for Visit * Reason Onset Date Comments OTHER 12/24/2022 Encounter Details Date Type Department Care Team (Late Contact Info) Description 12/24/2022 Telephone [facility] MEDICINE [address] [place] [phone] Khloe Fonseca [address] Dept [place] [address] OTHER Social History Tobacco Use Types Packs/Day [...] To clarify, please contact pt sister at [phone] documented in this encounter Plan of Treatment Upcoming Encounters Date Type Department Care Team (Late st Contact Info) Description 09/28/2024 1:30 PM EDT Office Visit [facility] MEDICINE [address] [place] [address] Kristy Wilder MD [address] [place], [place] [phone] 10/18/2024 11:00 AM EDT Telemedicine [facility] CHC MED & PEDS 505 [place] [address] Colette Diop, BRICE [address] [place] [address] documented as of this encounter Visit Diagnoses Not on filedocumented in this encounter Additional Health Concerns Assessment Noted Time PHQ-9 Depression Total Score: 11 022 1:16 PM EST documented as of this encounter Care Teams Business Improvement Manager Relationship Specialty Start Date End Date Khloe Fonseca FNP PCP - General Family Medicine 02/05/22 12/25/22 Kristy Wilder MD [address] [place] [address] PCP - General Internal Medicine 12/26/22 documented as of this encounter
--- OUTSIDE RECORDS SUMMARY | 2024-09-21 18:46 | XMS_ITS | Encounter Summary ---
Author Organization [employer] Address [address] [facility] [address] [place] [address] Care Team Providers Care Head Of Visual Merchandising Name Role Phone Kristy Wilder MD Primary [...] (Late st Contact Info) Description 02/11/2023 Refill [facility] MEDICINE [address] [place] [address] Kristy Wilder MD [address] [place], [place] [phone] Primary insomnia; Chronic low back pain, unspecified [...] Description 09/28/2024 1:30 PM EDT Office Visit [facility] MEDICINE [address] [place] [address] Kristy Wilder MD [address] [place] [address] 10/18/2024 11:00 AM EDT Telemedicine [facility] CHC MED & PEDS [address] [place], [place] [phone] Colette Diop, BRICE 505 [place], [place] [phone] documented as of this encounter Visit Diagnoses Diagnosis Primary insomnia Persistent disorder of initiating or maintaining sleep Chronic low back pain, unspecified back pain laterality, unspecified whether sciatica present documented in this encounter Additional Health Concerns Assessment Noted Time PHQ-9 Depression Total Score: 11 022 1:16 PM EST documented as of this encounter Care Teams Head Of Visual Merchandising Relationship Specialty Start Date End Date Kristy Wilder MD [address] [place] [address] PCP - General Internal Medicine 12/26/22 documented as of this encounter
--- OUTSIDE RECORDS SUMMARY | 2024-09-21 18:46 | XMS_ITS | Encounter Summary ---
Author Organization [facility] Address [address] [place] [address] Care Team Providers Care Patient Safety Coordinator Name Role Phone Davon Wu Primary Care Provider [phone] Encounter Details Date Type Department Care Team (Late st Contact Info) Description 10/31/2020 Orders Only [facility] XRay [address] [place], [place] [phone] Winifred Winston MD [address] [place], [place] [phone] Social History Tobacco Use Types Packs/Day Years [...] on filedocumented in this encounter Care Teams Patient Safety Coordinator Relationship Specialty Start Date End Date Davon Wu [address] [place] [address] PCP - General Internal Medicine 09/28/18 documented as of this encounter
--- OUTSIDE RECORDS SUMMARY | 2024-09-21 18:46 | XMS_ITS | Encounter Summary ---
Author Organization [employer] [facility] Address [address] [place] [address] Care Team Providers Care Medical Case Worker Name Role Phone Khloe Fonseca [facility] Primary Care Provider [phone] Kristy Wilder MD Primary Care Pro vider Encounter Details Date Type Department Care Team (Late Contact Info) Description 12/09/2022 Abstract [facility] MEDICINE [address] [place] [address] Khloe Fonseca FNP [address] [place] [address] Dept [place] [address] Social History Tobacco Use Types Packs/Day Years [...] Description 09/28/2024 1:30 PM EDT Office Visit [facility] MEDICINE [address] [place] [address] Kristy Wilder MD [address] [place], [place] [phone] 10/18/2024 11:00 AM EDT Telemedicine [facility] CHC MED & PEDS [address] [place] [address] Colette Diop, BRICE [address] [place] [address] documented as of this encounter Visit Diagnoses Not on filedocumented in this encounter Additional Health Concerns Assessment Noted Time PHQ-9 Depression Total Score: 11 022 1:16 PM EST documented as of this encounter Care Teams Medical Case Worker Relationship Specialty Start Date End Date Khloe Fonseca FNP PCP - General Family Medicine 02/05/22 12/25/22 Kristy Wilder MD [address] [place] [address] PCP - General Internal Medicine 12/26/22 documented as of this encounter
--- OUTSIDE RECORDS SUMMARY | 2024-09-21 18:46 | XMS_ITS | Encounter Summary ---
Author Organization [employer] Address [address] [facility] [address] [place] [address] Care Team Providers Care Production Material Handler Name Role Phone Kristy Wilder MD Primary Care Pro vider Reason for Visit * Reason Onset Date Comments Triage 09/17/2024 Encounter Details Date Type Department Care Team ([facility] st Contact Info) Description 09/17/2024 Telephone [facility] [address] [place], [place] [phone] Kristy Wilder MD [address] [place], [place] [phone] Triage Social History Tobacco Use Types Packs/Day [...] and propranolol 10 mg PO BID. 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 Call returned to Krys Travis totriage below. Reports having elevated BP reading this [...] numbness of face, arm or leg. [place] [facility] [place] , pt was offered admission for MRI to rule out brain mass vs stroke, but patient declined. Pt offered sick onsite but prefers to seek [facility] [place] than clinic. Pt advised to return call after ER discharge. Sent to team for [facility] ER status check PRN. Protocol Used: Blood [...] headache The caller accepted this outcome. ( [place] Speaker- [phone], contact info verified ) documented in this encounter Plan of Treatment Upcoming Encounters Date Type Department Care Team ([facility] st Contact Info) Description 09/28/2024 1:30 PM EDT Office Visit [facility] [address] [place] [address] Kristy Wilder MD [address] [place] [phone] 10/18/2024 11:00 AM EDT Telemedicine [facility] [address] [place] [address] Colette Diop, RN [address] [place] [address] documented as of this encounter Visit Diagnoses Not on filedocumented in this encounter Additional Health Concerns Assessment Noted Time PHQ-9 Depression Total Score: 4 10/31/19 24 1:38 PM EDT documented as of this encounter Care Teams Production Material Handler Relationship Specialty Start Date End Date Kristy Wilder MD [address] [place] [phone] PCP - General Internal Medicine 12/26/22 documented as of this encounter
--- OUTSIDE RECORDS SUMMARY | 2024-09-21 18:46 | XMS_ITS | Encounter Summary ---
Author Organization [employer] Address [address] [place] [address] Care Team Providers Care Fermentologist Name Role Phone Khloe Fonseca LAYER OUT PLATE GLASS Primary Care Provider [phone] Kristy Wilder MD Primary Care Pro vider Reason for Visit * Reason Onset Date Comments Med Refill [facility] order 08/25/2022 Order # [id number] Encounter Details Date Type Department Care Team (Late st Contact Info) Description 08/25/2022 Refill [facility] [address] [place] [address] Khloe Fonseca [address] Dept [place] [address] Type 2 diabetes mellitus without complication, without long-term current use of insulin ([facility]) Social History Tobacco Use Types [...] Description 09/28/2024 1:30 PM EDT Office Visit [facility] [address] [place] [address] Kristy Wilder MD [address] [place], [place] [phone] 10/18/2024 11:00 AM EDT Telemedicine [facility] [address] [place], [place] [phone] Colette Diop RN [address] [place], [place] [phone] documented as of this encounter Visit Diagnoses Diagnosis Type 2 diabetes mellitus without complication, without long-term current use of insulin ([facility]) documented in this encounter Additional Health Concerns Assessment Noted Time PHQ-9 Depression Total Score: 11 022 1:16 PM EST documented as of this encounter Care Teams Fermentologist Relationship Specialty Start Date End Date Khloe Fonseca FNP PCP - General Family Medicine 02/05/22 12/25/22 Kristy Wilder MD [address] [place] [phone] PCP - General Internal Medicine 12/26/22 documented as of this encounter
--- OUTSIDE RECORDS SUMMARY | 2024-09-21 18:46 | XMS_ITS | Encounter Summary ---
Author Organization [employer] Address [address] [facility] 7[address] [place] [address] Care Team Providers Care Push Connector Assembler Name Role Phone Kristy Wilder MD Primary [...] 1:30 PM EDT Office Visit [facility] MED[facility]INE [address] [place] [phone] Kristy Wilder MD [address] [place], [place] [phone] 10/18/2024 11:00 AM EDT Telemedicine [facility] [address] [place] [address] Colette Diop, RN 505 [place] [address] documented as of this encounter Procedures Procedure Name Priority Date/Time Associated Diagnosis Comments CT HEAD WO CONTRAST Routine 09/17/2024 1 :54 PM EDT URINALYSIS, COMPLETE, WITH REFLEX TO CULTURE Routine 09/17/2024 10:39 AM EDT HIGH SENSITIVITY TROPONIN I Routine 09/17/2024 10:27 AM EDT SARS COV2/INFLUENZA A/B AND RSV RNA QL NAAT Routine 09/17/2024 10:27 AM EDT CBC WITH AUTO DIFFERENTIAL Routine 09/17/2024 10:27 AM EDT MAGNESIUM Routine 09/17/2024 10:27 AM EDT COMPREHENSIVE METABOLIC PANEL Routine 09/17/2024 10:27 AM EDT CULTURE, URINE, ROUTINE Routine 09/17/2024 12:00 AM EDT documented in this encounter Results * CT Head w/o Contrast (09/17/2024 1:54 PM EDT) Anatomical Region Laterality Modality Head, Neck Computed Tomogra phy 09/17/2024 1:54 PM EDT Narrative 09/17/2024 2:29 PM EDT ? [facility] ?[address] ?[place] [address] ? CT Scan Report ? Signed ? Patient: Krys Gillis ?MR# ?? : [id number] ? : 1965 ?Acct:[id number] ? Age/Sex: 59 / F ?ADM Date: 09/17/24 ? Loc: HO.ED ? Attending Dr: ? Ordering Physician: Shonda Pimentel ?? Date of Service: 09/17/24 ?? Procedure(s): CT head/brain wo IV con ?? Accession Number(s): [id number] ? cc: Kristy Wilder MD; Shonda Pimentel ? Report Number: ?? [id number]: Total DLP = ??715.00 mGy-cm ?? EXAMINATION: [...] ??Gabo Miller MD ??09/17/2024 02:27 PM EDT ? Dictated By: ?Gabo Miller MD ? Signed By: ?<Electronically signed by Gabo Miller MD in OV> ?09/17/24 1427 ? DD/ 1354 ? TD/TT: 09/17/24 1411 ? Heating Element Repairer: ? Procedure Note Thad, Image - 09/17/[address] [place] [address] [address] Scan Report Signed Patient: Princess Gillis# : [id number] : 1965Acct:[id number] Age/Sex: 59 / FADM Date: 09/17/24 Loc: HO.ED Attending Dr: Ordering Physician: Shonda Pimentel Date of Service: 09/17/24 Procedure(s): CT head/brain wo IV con Accession Number(s): [id number] cc: Kristy Wilder MD; Shonda Pimentel Report Number: [id number]: Total DLP = 715.00 mGy-cm EXAMINATION: CT [...] 09/17/24 1427 DD/ 1354 TD/TT: 09/17/24 1411 Heating Element Repairer: [facility] External Provider IMG CT PROCEDURES Final Result * (ABNORMAL) Urinalysis, Complete, with Reflex to Culture (09/17/2024 10:39 AM EDT) Color Urine Yellow [facility] Appearance Urine Clear [facility] PH 5.5 5.0 - 9.0 [facility] Glucose Urine UA Negative Negative mg/dL [facility] Urine Blood Negative Negative [facility] Specific [address] - Urine 1.015 1.005 - 1.025 [facility] Urine Protein Negative Neg-Trace mg/dL [facility] Urine Ketones Negative Negative mg/dL [facility] Nitrite Urine Negative Negative [facility] Leukocyte Esterase Urine Large (3+)(A) Negative [facility] RBC Urine 0-2 0 - 2 /HPF [facility] Urine WBC 21-50(A) 0 - 5 /HPF [facility] Urine Squamous Epithelial Cell 6-10 0 - 2 /HPF [facility] Urine Bacteria None Seen None Seen [facility] Hyaline Casts, Urine 0-2 0 - 2 /LPF [facility] 09/17/2024 10:3 9 AM EDT 09/17/2024 10:45 AM EDT Narrative [facility] - 09/17/2024 10:55 AM EDT [id number], Clean Catch Generic External Data Provider LAB URINE ORDERAB LES Final Result Performing Organization Address [facility] Co de Phone Number [facility] [address] [place] [phone] * High Sensitivity Troponin I (09/17/2024 10:27 AM EDT) [facility] TROPONIN I HIGH SENSITIVITY <2.7 <3.5 - 17.0 ng/L [facility] Comment:The Rodriges high sens itivity Troponin-I results should beused in conjunction with other diagnostic information suchas ECG, clinical observations and information, and patientsymptoms to aid in the diagnosis of AL. 09/17/2024 10:2 7 AM EDT 09/17/2024 2:09 PM EDT Generic External Data Provider LAB BLOOD ORDERAB LES Final Result Performing Organization Address [facility]/ZIP Co de Phone Number [facility] [address] [place] [address] [phone] * Magnesium (09/17/2024 10:27 AM EDT) Pathologist [facility] Magnesium 1.6 1.6 - 2.6 mg/dL [facility] 09/17/2024 10:2 7 AM EDT 09/17/2024 10:34 AM EDT Generic External Data Provider LAB BLOOD ORDERAB LES Final Result Performing Organization Address [facility] Co de Phone Number [facility] [address] [place] [phone] * SARS-CoV-2 RNA, Influenza A/B, and RSV RNA, Ql NAAT (09/17/2024 10:27 AM EDT) Pathologist [facility] Influenza A PCR NEGATIVE Negative [facility] Influenza B PCR NEGATIVE Negative [facility] Resp Syncy Virus RNA Qual PCR NEGATIVE Negative [facility] SARS COV2 PCR NEGATIVE Negative [facility] Comment:All test results mus t [...] use by authorized laboratories.Testing performed on the [employer] GeneXpert utilizingreal-time RT-PCR.All SARS CoV2 and positive influenza A/B results arereported to [facility]. 09/17/2024 10:2 7 AM EDT 09/17/2024 10:34 AM EDT Generic External Data Provider LAB MICROBIOLOGY - GENERAL ORDERABLES Final Result Performing Organization Address [facility]/ZIP Co de Phone Number [facility] [address] [place] [phone] * (ABNORMAL) Comprehensive Metabolic Panel (09/17/2024 10:27 AM EDT) Pathologist [facility] Sodium 142 135 - 145 mmol/L [facility] Potassium 4.2 3.3 - 5.1 mmol/L [facility] Chloride 109(H) 96 - 108 mmol/L [facility] Carbon Dioxide 27 22 - 29 mmol/L [facility] Anion Gap 10(L) 12 - 20 [facility] Urea Nitrogen (BUN) 14 9 - 16 mg/dL [facility] Creatinine, Serum 0.79 0.5 - 1.4 mg/dL [facility] Creatinine Clr Calc Pharmacy 87.1 [facility] Comment:Provided height and weight: 167.64 cm,86.8 kg.eGFR (calculated from the MDRD study equation) and eCrCl(calculated from the Cockcroft-Gault equation) are based ondifferent parameters and may not yield comparable results.If eCrCl result is absurd, please check patient'sheight/weight. Estimated Glomerular Filt Rate >60 [facility] Comment:Chronic Kidney Disea se: Estimated GFR < 60 mL/min/1.55h8Fwoexx Kidney Disease: Estimated GFR < 15 mL/min/1.73m2 Glucose 105 60 - 115 mg/dL [facility] Calcium 9.1 8.4 - 10.2 mg/dL [facility] Bilirubin, Total 0.4 0.0 - 1.0 mg/dL [facility] Aspartate Amino Transferase 50(H) 5 - 31 U/L [facility] Alanine Aminotransferase 70(H) 0 - 31 U/L [facility] Total Protein 6.9 6.5 - 8.0 g/dL [facility] Albumin Level 3.9 3.5 - 5.0 g/dL [facility] Alkaline Phosphatase 102 39 - 117 U/L [facility] 09/17/2024 10:2 7 AM EDT 09/17/2024 10:34 AM EDT us Generic External Data Provider LAB BLOOD ORDERAB LES Final Result [facility] [address] [place] [address] [phone] * CBC auto differential (09/17/2024 10:27 AM EDT) White Blood Count 5.1 4.8 - 10.8 X10*3/uL [facility] Red Blood Count 4.65 4.20 - 5.50 X10*6/uL [facility] Hemoglobin 13.7 12.0 - 16.0 g/dl [facility] Hematocrit 39.9 37.0 - 47.0 % [facility] Mean Corpuscular Volume 85.8 80.0 - 98.0 fL [facility] Mean Corpuscular Hemoglobin 29.5 27.0 - 33.0 pg [facility] Mean Corpuscular HGB Conc 34.3 31.0 - 35.0 g/dl [facility] Red Cell Distribution Width 13.0 11.0 - 16.0 % [facility] Platelet Count 188 160 - 400 X10*3/uL [facility] Mean Platelet Volume 9.6 9.4 - 12.3 fL [facility] Neutrophils Percent Auto 58.6 45 - 73 % [facility] Imm Gran Pct Auto 0.2 0.0 - 0.4 % [facility] Lymphocytes Percent Auto 32.3 20 - 40 % [facility] Monocytes Percent Auto 5.4 2 - 11 % [facility] Eosinophils Percent Auto 3.1 0 - 4 % [facility] Basophils Percent Auto 0.4 0 - 2 % [facility] NRBC Pct Auto 0.0 0.0 - 0.2 /100WBC [facility] Neutrophils Absolute Auto 3.0 2.0 - 8.3 x10*3/uL [facility] Imm Gran Abs Auto 0.01 0.00 - 0.03 X10*3/uL [facility] Lymphocytes Absolute Auto 1.7 1.2 - 4.9 X10*3/uL [facility] Monocytes Absolute Auto 0.3 0.1 - 1.2 X10*3/uL [facility] Eosinophils Absolute Auto 0.2 0.0 - 0.4 X10*3/uL [facility] Basophils Absolute Auto 0.0 0.0 - 0.2 X10*3/uL [facility] NRBC Abs Auto 0.000 0.0 - 0.012 X10*3/uL [facility] 09/17/2024 10:2 7 AM EDT 09/17/2024 10:34 AM EDT us Generic External Data Provider LAB BLOOD ORDERAB LES Final Result Performing Organization Address [facility] Co de Phone Number [facility] [address] [place] [phone] * Culture, Urine, Routine (09/17/2024 12:00 AM EDT) Urine Urine specimen obtained by clean catch procedure / Unknown 09/17/2024 09/17/2024 Comment:UACC Narrative [facility] - 09/18/2024 11:44 AM EDT Urine Culture No growth. Specimen Source: Urine clean catch Generic External Data Provider LAB MICROBIOLOGY - GENERAL ORDERABLES Final Result Performing Organization Address [facility] de Phone Number [facility] [address] [place] [phone] documented in this encounter Visit Diagnoses Not on filedocumented in this encounter Additional Health Concerns Assessment Noted Time PHQ-9 Depression Total Score: 4 10/31/19 24 1:38 PM EDT documented as of this encounter Care Teams Push Connector Assembler Relationship Specialty Start Date End Date Kristy Wilder MD [address] [place] [phone] PCP - General Internal Medicine 12/26/22 documented as of this encounter
--- OUTSIDE RECORDS SUMMARY | 2024-09-21 18:46 | XMS_ITS | Clinical Summary ---
Author Organization [facility] Address [address] [place] [address] Phone Care Team Providers Care Railway Shunter Name Role Phone Physician, No Pcp Primary [...] mmol/L LAB CHEMISTRY METHOD 05/09/2024 2:26 PM [facility] Potassium 4.1 3.5 - 5.5 mmol/L LAB CHEMISTRY METHOD 05/09/2024 2:26 PM [facility] Chloride 107 96 - 110 mmol/L LAB CHEMISTRY METHOD 05/09/2024 2:26 PM [facility] CO2 32 21 - 32 mmol/L LAB CHEMISTRY METHOD 05/09/2024 2:26 PM [facility] Anion Gap 4 3 - 11 LAB CHEMISTRY METHOD 05/09/2024 2:26 PM [facility] Glucose 94 70 - 100 mg/dL LAB CHEMISTRY METHOD 05/09/2024 2:26 PM [facility] BUN 13 5 - 25 mg/dL LAB CHEMISTRY METHOD 05/09/2024 2:26 PM [facility] Creatinine 0.79 0.50 - 1.10 mg/dL LAB CHEMISTRY METHOD 05/09/2024 2:26 PM [facility] eGFR 87 >=60 mL/min/1. 73m2 LAB CHEMISTRY METHOD 05/09/2024 2:26 PM [facility] Comment:Calculation based on the??Chronic Kidney Disease Epidemiology Collaboration (CKD-EPI) equation refit??without adjustment for race. BUN/Creatinine Ratio 16.5 LAB CHEMISTRY METHOD 05/09/2024 2:26 PM [facility] Calcium 9.5 8.5 - 10.5 mg/dL LAB CHEMISTRY METHOD 05/09/2024 2:26 PM [facility] AST (SGOT) 23 10 - 42 unit/L LAB CHEMISTRY METHOD 05/09/2024 2:26 PM [facility] ALT (SGPT) 31 10 - 60 unit/L LAB CHEMISTRY METHOD 05/09/2024 2:26 PM [facility] Alkaline Phosphatase 91 42 - 121 unit/L LAB CHEMISTRY METHOD 05/09/2024 2:26 PM [facility] Total Protein 6.6 6.0 - 8.0 g/dL LAB CHEMISTRY METHOD 05/09/2024 2:26 PM [facility] Albumin 3.5 3.2 - 5.0 g/dL LAB CHEMISTRY METHOD 05/09/2024 2:26 PM [facility] Total Bilirubin 0.8 0.0 - 1.4 mg/dL LAB CHEMISTRY METHOD 05/09/2024 2:26 PM [facility] Blood Venous blood specimen / Unknown Venipuncture / Unknown 05/09/2024 1:32 PM EST 05/09/2024 1:57 PM EST us Bryson Sinha MD LAB BLOOD ORDERABLES Final Result [facility] [address] [place] [address], from Last 3 Months or Most Recently Relevant to Health Maintenance Insurance MEDICAID - [place] Care Teams Railway Shunter Relationship Specialty Start Date End Date Physician, No Pcp PCP - General 05/09/24
--- OUTSIDE RECORDS SUMMARY | 2024-09-21 18:46 | XMS_ITS | Clinical Summary ---
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 Care Aerosol Line Operator Name Role Phone ANDREINA MENCHACA, CLARENCE Unavailable Unavailable TATI NARVAEZ, ALBERTA Unavailable Unavailable Payers Payer Name Policy Type Policy Number Effective Date Expira tion Date [facility] [id number] Problems Condition Name Condition Details Condition Category [...] 06-25 00:00: 00 09-01 23:59 :00 No [id number] 5 mg BEDTIME 5 mg BEDTIME (route: oral) Med Classific ation: Central Nervous System Agents buspirone 7.5 mg tablet 06-25 00:00: 00 09-01 23:59 :00 No [id number] 7.5 mg 2 TIMES DAILY 7.5 mg 2 TIMES DAILY (route: oral) Med Classific ation: Central Nervous System Agents Eliquis 5 mg tablet 06-25 00:00: 00 09-01 23:59 :00 No [id number] 5 mg 2 TIMES DAILY 5 mg 2 TIMES DAILY (route: oral) Med Classific ation: Hematolog ical Agents famotidine 20 mg tablet 06-25 00:00: 00 09-01 23:59 :00 No [id number] 20 mg 2 TIMES DAILY 20 mg 2 TIMES DAILY (route: oral) Med Classific ation: Gastroint estinal Therapy Agents levothyroxi ne 112 mcg tablet 06-25 00:00: 00 09-01 23:59 :00 No [id number] 112 mcg EVERY AM 112 mcg EVERY AM (route: oral) Med Classific ation: Endocrine losartan 25 mg tablet 06-25 00:00: 00 09-01 23:59 :00 No [id number] 25 mg NOON 25 mg NOON (route: oral) Med Classific ation: Cardiovas cular Therapy Agents metformin 500 mg tablet 06-25 00:00: 00 09-01 23:59 :00 No [id number] 500 mg DIRECTED 500 mg DIRECTED (route: oral) Med Classific ation: Endocrine mirtazapine 7.5 mg tablet 06-25 00:00: 00 09-01 23:59 :00 No [id number] 7.5 mg BEDTIME 7.5 mg BEDTIME (route: oral) Med Classific ation: Central Nervous System Agents Narcan 4 mg/actuatio n nasal spray 06-25 00:00: 00 09-01 23:59 :00 No [id number] 2 spray DIRECTED 2 spray DIRECTED (route: nasal) Med Classific ation: Antidotes and other Reversal Agents ondansetron 4 mg disintegrat ing tablet 06-25 00:00: 00 09-01 23:59 :00 No [id number] 4 mg EVERY 8 HOURS 4 mg EVERY 8 HOURS (route: oral) Med Classific ation: Gastroint estinal Therapy Agents oxycodone 5 mg tablet 06-25 00:00: 00 09-01 23:59 :00 No [id number] 5 mg EVERY 12 HOURS 5 mg EVERY 12 HOURS (route: oral) Med Classific ation: Analgesic , Anti-infl ammatory or Antipyret ic propranolol 10 mg tablet 06-25 00:00: 00 09-01 23:59 :00 No [id number] 17 mg 2 TIMES DAILY 17 mg 2 TIMES DAILY (route: oral) Med Classific ation: Cardiovas cular Therapy Agents sertraline 100 mg tablet 06-25 00:00: 00 09-01 23:59 :00 No [id number] 100 mg NOON 100 mg NOON (route: oral) Med Classific ation: Central Nervous System Agents buspirone 10 mg tablet 09-05 00:00: 00 Yes [id number] 1 tablet 2 TIMES DAILY 1 tablet 2 TIMES DAILY (route: oral) Med Classific ation: Central Nervous System Agents Colace 100 mg capsule 09-04 00:00: 00 Yes [id number] 1 capsule BEDTIME 1 capsule BEDTIME (route: oral) Med Classific ation: Gastroint estinal Therapy Agents Eliquis 5 mg tablet 09-04 00:00: 00 Yes [id number] 1 tablet 2 TIMES DAILY 1 tablet 2 TIMES DAILY (route: oral) Med Classific ation: Hematolog ical Agents levothyroxi ne 112 mcg tablet 09-04 00:00: 00 Yes [id number] 1 tablet EVERY AM 1 tablet EVERY AM (route: oral) Med Classific ation: Endocrine losartan 25 mg tablet 09-04 00:00: 00 Yes [id number] 1 tablet NOON 1 tablet NOON (route: oral) Med Classific ation: Cardiovas cular Therapy Agents metformin 500 mg tablet 09-04 00:00: 00 Yes [id number] 1 tablet EVERY AM 1 tablet EVERY AM (route: oral) Med Classific ation: Endocrine metformin 500 mg tablet 09-05 00:00: 00 Yes [id number] 2 tablet EVERY PM 2 tablet EVERY PM (route: oral) Med Classific ation: Endocrine Pepcid 20 mg tablet 09-04 00:00: 00 Yes [id number] 1 tablet 2 TIMES DAILY 1 tablet 2 TIMES DAILY (route: oral) Med Classific ation: Gastroint estinal Therapy Agents propranolol 10 mg tablet 09-04 00:00: 00 Yes [id number] 1 tablet 2 TIMES DAILY 1 tablet 2 TIMES DAILY (route: oral) Med Classific ation: Cardiovas cular Therapy Agents sertraline 100 mg tablet 09-04 00:00: 00 Yes [id number] 1 tablet NOON 1 tablet NOON (route: oral) Med Classific ation: Central Nervous System Agents mirtazapine 45 mg tablet 09-04 00:00: 00 Yes [id number] 1 tablet BEDTIME 1 tablet BEDTIME (route: oral) Med Classific ation: Central Nervous System Agents hydroxyzine HCl 10 mg tablet 09-04 00:00: 00 Yes [id number] 1-2 tablet 2 TIMES DAILY 1-2 tablet [...] AWARENESS FOR SAFETY AND WILL NOTIFY CLINICAL GRAB JACK WORKER AND PHYSICIAN/PROVIDER WITH ANY CHANGE IN CONDITION. [code = SKILLED NURSE WILL MAINTAIN SITUATIONAL AWARENESS FOR SAFETY AND WILL NOTIFY CLINICAL GRAB JACK WORKER AND PHYSICIAN/PROVIDER WITH ANY CHANGE IN CONDITION.] [...] CARE WILL BE ESTABLISHED THAT MEETS PATIENT'S LONGTERM NEEDS AND INCLUDES PATIENT GOAL FOR HOME [...] Date/Time Encounter Type Admission Type Attending [facility] Care Department Encounter ID Discharge Date Discharge Status Discharge Condition Discharge Reason Percent Goals Met 2024-09-04 00:00:00 2024-11-02 00:00:00 Outpatient ALBERTA HERNANDEZ [facility] [id number] 8.57
== END 2024-09-21 15:41 | disposition home or self-care (01) ==
LOC: HO.MRI 15:40
PROVIDERS: PCP Student in an Organized Health Care Education/Training Program; Visit Provider Internal Medicine Medical Oncology
DX: R53.1 Weakness (principal)
CPT/HCPCS: 70553; A9585

== ENCOUNTER → 2024-09-21 15:50 | Outpatient (BNV) | payer MEDICAID, SELFPAY | PROVIDERS: PCP Student in an Organized Health Care Education/Training Program; Visit Provider Radiology Diagnostic Radiology | DX: C64.9 Malignant neoplasm of unspecified kidney, except renal pelvis (principal) | CPT/HCPCS: 70553 ==

== ENCOUNTER → 2024-10-14 12:53 | Outpatient (BNV) | payer MEDICAID, SELFPAY | PROVIDERS: PCP Student in an Organized Health Care Education/Training Program; Visit Provider Radiology Diagnostic Radiology | DX: R90.0 Intracranial space-occupying lesion found on diagnostic imaging of central nervous system (principal) | CPT/HCPCS: 70553 ==

== ENCOUNTER 2024-10-14 12:57 | Outpatient (REF) | payer MEDICAID, SELFPAY ==
--- NOTE | ~2024-10-14 | MR_ITS ---
EXAMINATION: MR BRAIN TRIGEMINAL PROTOCOL WITHOUT AND WITH CONTRAST CLINICAL INFORMATION: Probable focal enhancement in at the inferior right Meckel's cave. COMPARISON: September 21, 2024. TECHNIQUE: Multiplanar, multisequence MRI of the brain was obtained before and after the intravenous administration of 8.5 mL gadolinium based (Gadavist) without reported immediate complications.. FINDINGS: There is no signal abnormality or enhancing lesion within the cisternal segment, entry zones of the trigeminal nerves. There is no abnormal enhancement within the Meckel's cave, foraminal ovale, foramen rotundum nor the orbital apices/orbital fissures. No enhancing lesion in the cavernous sinuses. The flow-void signal within the petrous cavernous supracavernous segments both ICAs normal. No abnormal enhancement in the brainstem. No abnormal enhancement or signal abnormality within the cochlear or vestibular components of the 8th cranial nerves nor the facial nerves. Hyperintense T2 FLAIR signal in the right mastoid air cells. Mucosal thickening in the paranasal sinuses. No restricted diffusion. No acute intracranial hemorrhage, mass effect, midline shift, hydrocephalus or herniation. [place]-white matter differentiation is normal. Sellar/suprasellar region demonstrated no signal abnormality or masses. Craniocervical junction is intact and normal with normal position of the cerebellar tonsils. MR/MR head/brain wo/w con IMPRESSION: No abnormal enhancement within the trigeminal nerves. Negative exam. Electronically signed by: Helio Ortega MD 10/14/2024 03:17 PM EDT
[2024-10-14] MEDS: gadobutroL 10 ML VIAL IVPUSH (14:00)
--- OUTSIDE RECORDS SUMMARY | 2024-10-14 14:13 | XMS_ITS | Encounter Summary ---
Author Organization [employer] Address 75 [facility] 7t [place] [address] Care Team Providers Care Electronic Gaming Device Supervisor Name Role Phone Kristy Wilder MD Primary Care Pro vider Reason for Visit * Reason Comments Med Refill Encounter Details Date Type Department Care Team ([facility] st Contact Info) Description 09/10/2023 Refill [facility] MEDICINE 230 [place], [place] [phone] Kristy Wilder MD 230 [place], [place] [phone] Type 2 diabetes mellitus with diabetic polyneuropathy, without long-term current use of insulin ([facility]) Social History Tobacco Use Types [...] Care Team (Late st Contact Info) Description 10/18/2024 11:00 AM EDT Telemedicine [facility] MED & PEDS 505 [place] [address] Colette Diop, BRICE 505 [place] [address] documented as of this encounter Visit Diagnoses Diagnosis Type 2 diabetes mellitus with diabetic polyneuropathy, without long-term current use of insulin ([facility]) documented in this encounter Additional Health Concerns Assessment Noted Time PHQ-9 Depression Total Score: 16 023 11:20 AM EDT documented as of this encounter Care Teams Electronic Gaming Device Supervisor Relationship Specialty Start Date End Date Kristy Wilder MD [address] [place] [address] PCP - General Internal Medicine 12/26/22 documented as of this encounter
--- OUTSIDE RECORDS SUMMARY | 2024-10-14 14:13 | XMS_ITS | Encounter Summary ---
Author Organization [employer] Address 75 [facility] 7 [place] [address] Care Team Providers Care Brand Manager Name Role Phone Kristy Wilder MD [...] (Late st Contact Info) Description 02/11/2023 Refill [facility] MEDICINE [address] [place] [address] [phone] Kristy Wilder MD 230 [place], [place] [phone] Primary insomnia; Chronic low back pain, unspecified [...] Upcoming Encounters Date Type Department Care Team ([facility] st Contact Info) Description 10/18/2024 11:00 AM EDT Telemedicine [facility] MED & PEDS 505 [place] [address] Colette Diop RN 505 [place] [address] documented as of this encounter Visit Diagnoses Diagnosis Primary insomnia Persistent disorder of initiating or maintaining sleep Chronic low back pain, unspecified back pain laterality, unspecified whether sciatica present documented in this encounter Additional Health Concerns Assessment Noted Time PHQ-9 Depression Total Score: 11 022 1:16 PM EST documented as of this encounter Care Teams Brand Manager Relationship Specialty Start Date End Date Kristy Wilder MD [address] [place] [address] PCP - General Internal Medicine 12/26/22 documented as of this encounter
--- OUTSIDE RECORDS SUMMARY | 2024-10-14 14:13 | XMS_ITS | Encounter Summary ---
Author Organization [employer] Address 75 [facility] 7 [place] [address] Care Team Providers Care Gun Barrel Finisher Name Role Phone Kristy Wilder MD Primary Care Pro vider Reason for Visit * Reason Onset Date Comments Nurse Triage 08/08/2023 Encounter Details Date Type Department Care Team ([facility] st Contact Info) Description 08/08/2023 Telephone [facility] MEDICINE 230 [place], [place] [phone] Kristy Wilder MD 230 [place], [place] [phone] Nurse Triage Social History Tobacco Use Types [...] EST Triage call returned to patient with [place] Product Support Specialist [phone]. Patient with soft voice and weakness. Received [...] to access 911 EMS for transport to [facility] ( followed by Oncologist) there. [...] accepted this outcome Please contact pt at [phone] (Chinese) documented in this encounter Plan of Treatment Upcoming Encounters Date Type Department Care Team (Late st Contact Info) Description 10/18/2024 11:00 AM EDT Telemedicine [facility] MED & PEDS 505 [place] [address] Colette Diop, RN 505 [place] [address] documented as of this encounter Visit Diagnoses Not on filedocumented in this encounter Additional Health Concerns Assessment Noted Time PHQ-9 Depression Total Score: 16 023 11:20 AM EDT documented as of this encounter Care Teams Gun Barrel Finisher Relationship Specialty Start Date End Date Kristy Wilder MD [address] [place] [address] PCP - General Internal Medicine 12/26/22 documented as of this encounter
--- OUTSIDE RECORDS SUMMARY | 2024-10-14 14:13 | XMS_ITS | Encounter Summary ---
Author Organization [employer] Address 75 [facility] 7t [place] [address] Care Team Providers Care Financial Institution President Name Role Phone Kristy Wilder MD Primary Care Pro vider Encounter Details Date Type Department Care Team (Late st Contact Info) Description 10/11/2024 Patient Outreach [facility] MEDICINE 230 [place], [place] [phone] Kristy Wilder MD 230 [place], [place] [phone] Social History Tobacco Use Types Packs/Day Years [...] Upcoming Encounters Date Type Department Care Team ([facility] st Contact Info) Description 10/18/2024 11:00 AM EDT Telemedicine [facility] MED & PEDS 505 [place] [address] Colette Diop, RN 505 [place] [address] documented as of this encounter Visit Diagnoses Not on filedocumented in this encounter Additional Health Concerns Assessment Noted Time PHQ-9 Depression Total Score: 4 10/31/19 24 1:38 PM EDT documented as of this encounter Care Teams Financial Institution President Relationship Specialty Start Date End Date Kristy Wilder MD [address] [place] [address] PCP - General Internal Medicine 12/26/22 documented as of this encounter
--- OUTSIDE RECORDS SUMMARY | 2024-10-14 14:13 | XMS_ITS | Encounter Summary ---
Author Organization [employer] Address [address] [place] [address] [place] [address] Care Team Providers Care Reticle Printer Name Role Phone Khloe Fonseca [facility] Primary Care Provider +[phone]- [phone] Kristy Wilder MD Primary Care Pro vider Reason for Visit * Reason Onset Date Comments pt1 10/16/2022 Encounter Details Date Type Department Care Team (Late st Contact Info) Description 10/16/2022 Telephone [facility] MEDICINE [address] [place] [address] Khloe Fonseca FNP [address] [place] [address] Dept of [place] [address] pt1 Social History Tobacco Use Types Packs/Day [...] Nannette Whittaker - 10/24/2022 10:19 AM EDT Mica Washer Gluer called and left voicemail for pt stating Pt1 Request was approved and she may call to schedule * Telephone Encounter - Nannette Whittaker - 10/24/2022 10:17 AM EDT Patient will recieve approval / denial letter via mail. PT-1 Request [id number] Pending - [facility] Pulmonology [address] [place] [address] Dr Mg [place] [phone] * Telephone Encounter - Eddie Souas - 10/21/2022 10:14 AM EDT Tc from pt requesting status on PT1. Date: October 22, 2022 Time: 2:45 pm address:[address] [place] [address] [place] [address] specialty:Pulmonology Center # visits: printing table hand: no Wheelchair: no * Telephone Encounter - Marko Rodriguez - 10/16/2022 11:51 AM EDT Tc from pt requesting pt1 ride Date: october 22, 2022 Time: 2:45 pm address:[address] [place] [address] [place] [address] specialty:Pulmonology Center # visits: printing table hand: no Wheelchair: no documented in this encounter Plan of Treatment Upcoming Encounters Date Type Department Care Team (Late st Contact Info) Description 10/18/2024 11:00 AM EDT Telemedicine [facility] MED & PEDS 505 [place] [address] Colette Diop RN 505 [place], [place] documented as of this encounter Visit Diagnoses Not on filedocumented in this encounter Additional Health Concerns Assessment Noted Time PHQ-9 Depression Total Score: 11 022 1:16 PM EST documented as of this encounter Care Teams Reticle Printer Relationship Specialty Start Date End Date Khloe Fonseca FNP PCP - General Family Medicine 02/05/22 12/25/22 Kristy Wilder MD [address] [place] [address] PCP - General Internal Medicine 12/26/22 documented as of this encounter
--- OUTSIDE RECORDS SUMMARY | 2024-10-14 14:13 | XMS_ITS | Encounter Summary ---
Author Organization [employer] Address 75 [facility] 7 [place] [address] Care Team Providers Care Cpr Ambulance Driver Name Role Phone Kristy Wilder MD Primary Care Pro vider Reason for Visit * Reason Onset Date Comments Letter for School/Work 12/26/2022 Encounter Details Date Type Department Care Team ([facility] st Contact Info) Description 12/26/[address] [facility] MEDICINE [address] [place] [address] Kristy Wilder MD 230 [place] [address] Letter for School/Work Social History Tobacco Use [...] Thank you. * Telephone Encounter - Mariluz Patrick - 12/26/2022 3:09 PM EDT Tc from requesting for PCP to make a letter for DIAMOND DRILLER HELPER hours and dx on letter to be faxed to [phone] documented in this encounter Plan of Treatment Upcoming Encounters Date Type Department Care Team (Late st Contact Info) Description 10/18/2024 11:00 AM EDT Telemedicine [facility] MED & PEDS 505 [place] [address] Colette Diop, BRICE 505 [place] [address] documented as of this encounter Visit Diagnoses Not on filedocumented in this encounter Additional Health Concerns Assessment Noted Time PHQ-9 Depression Total Score: 11 022 1:16 PM EST documented as of this encounter Care Teams Cpr Ambulance Driver Relationship Specialty Start Date End Date Kristy Wilder MD [address] [place] [address] PCP - General Internal Medicine 12/26/22 documented as of this encounter
--- OUTSIDE RECORDS SUMMARY | 2024-10-14 14:13 | XMS_ITS | Encounter Summary ---
Author Organization [employer] Address [address] [place] [address] [place] [address] Care Team Providers Care Inner Diameter Grinder Tool Name Role Phone Khloe Fonseca [employer] Primary Care Provider +1- [phone] Kristy Wilder MD Primary Care Pro vider Reason for Visit * Reason Onset Date Comments Med Refill [facility] order 08/25/2022 Order # [id number] Encounter Details Date Type Department Care Team (Late st Contact Info) Description 08/25/2022 Refill [facility] MEDICINE [address] [place] [address] Khloe Fonseca [address] Dept [place] [address] Type 2 diabetes mellitus without complication, without long-term current use of insulin ([facility]) Social History Tobacco Use Types [...] Description 10/18/2024 11:00 AM EDT Telemedicine [facility] MED [facility] PEDS 505 [place] [address] Colette Diop RN 505 [place] [address] documented as of this encounter Visit Diagnoses Diagnosis Type 2 diabetes mellitus without complication, without long-term current use of insulin ([facility]) documented in this encounter Additional Health Concerns Assessment Noted Time PHQ-9 Depression Total Score: 11 022 1:16 PM EST documented as of this encounter Care Teams Inner Diameter Grinder Tool Relationship Specialty Start Date End Date Khloe Fonseca FNP PCP - General Family Medicine 02/05/22 12/25/22 Kristy Wilder MD [address] [place] [address] PCP - General Internal Medicine 12/26/22 documented as of this encounter
--- OUTSIDE RECORDS SUMMARY | 2024-10-14 14:13 | XMS_ITS | Encounter Summary ---
Author Organization [employer] Address 75 [facility] 7 [place] [address] Care Team Providers Care Grain Loader Name Role Phone Kristy Wilder MD Primary Care Pro vider Reason for Visit * Reason Comments Care Coordination C3CM- chart review Encounter Details Date Type Department Care Team (Latest Contact Info) Description 10/11/2024 Patient Outreach [facility] MEDICINE [address] [place] [address] [phone] Kristy Wilder MD 230 [place] [address] Care Coordination (C3CM- chart review) Social History Tobacco Use Types Packs/Day Years [...] as of this encounter Progress Notes * Frandy Melara RN - 10/11/2024 9:18 AM EDT ADELIA Melara RN, performed chart review, in anticipation of initial assessment with patient, aspatient has stratified for C3 Adult Complex Care through the ADT feed. History significant for anxiety, depressive disorder, essential hypertension, migraine without aura, psoriasis, type 2 diabetes m ellitus, therapeutic opioid induced constipation, renal cell carcinoma of right kidney, malignant neoplasm of lower lobe of left lung, chronic pain, varicose veins of both lower extremities, renal vein thrombosis. Specialists include ENT, [facility] oncology and hematology, [facility] optometry, [facility] vascular, urology, [facility] women's services. ED visits within the last 12 months include [facility] 10/08/24, [facility] 09/17/24, [facility] 09/09/24, [facility] 05/09/24, [facility] 02/25/24-02/26/24, [facility] 02/14/24. Last appointment in PCP office on 03/02/24. Next appointment scheduled for 10/18/24. documented in this encounter Plan of Treatment Upcoming Encounters Date Type Department Care Team (Late st Contact Info) Description 10/18/2024 11:00 AM EDT Telemedicine [facility] MED & PEDS 505 [place] [address] Colette Diop RN 505 [place] [address] documented as of this encounter Visit Diagnoses Not on filedocumented in this encounter Additional Health Concerns Assessment Noted Time PHQ-9 Depression Total Score: 4 10/31/19 24 1:38 PM EDT documented as of this encounter Care Teams Grain Loader Relationship Specialty Start Date End Date Kristy Wilder MD [address] [place] [address] PCP - General Internal Medicine 12/26/22 documented as of this encounter
--- OUTSIDE RECORDS SUMMARY | 2024-10-14 14:13 | XMS_ITS | Encounter Summary ---
Author Organization [employer] Address 75 [facility] 7 [place] [address] Care Team Providers Care Fourdrinier Tender Name Role Phone Krisyt Wilder MD Primary Care Pro vider Reason for Visit * Reason Onset Date Comments PT-1 08/03/2024 Encounter Details Date Type Department Care Team ([facility] st Contact Info) Description 08/03/2024 Telephone [facility] MEDICINE [address] [place] [address] [phone] Kristy Wilder MD 230 [place], [place] [phone] PT-1 Social History Tobacco Use Types Packs/Day [...] Y/N: Yes Provider name or facility name: [facility] Facility Address: [address] [place] [address] Escort needed: Y/N: No Do you have a wheelchair: Y/N: No If yes- Manual or electric: N/A Visits: Twice monthly documented in this encounter Plan of Treatment Upcoming Encounters Date Type Department Care Team (Late st Contact Info) Description 10/18/2024 11:00 AM EDT Telemedicine [facility] MED & PEDS 505 [place] [address] Colette Diop RN 505 [place] [address] documented as of this encounter Visit Diagnoses Not on filedocumented in this encounter Additional Health Concerns Assessment Noted Time PHQ-9 Depression Total Score: 4 10/31/19 24 1:38 PM EDT documented as of this encounter Care Teams Fourdrinier Tender Relationship Specialty Start Date End Date Kristy Wilder MD [address] [place] [address] PCP - General Internal Medicine 12/26/22 documented as of this encounter
--- OUTSIDE RECORDS SUMMARY | 2024-10-14 14:13 | XMS_ITS | Encounter Summary ---
Author Organization [employer] Address 75 [facility] 7t [place] [address] Care Team Providers Care Lead Laying And Gluing Machine Operator Name Role Phone Kristy Wilder MD Primary Care Pro vider Reason for Visit * Reason Comments Med Refill Encounter Details Date Type Department Care Team (Late st Contact Info) Description 05/15/2023 Refill [facility] MEDICINE 230 [place], [place] [phone] Evelina Freeman MD 230 [place], [place] [phone] Social History Tobacco Use Types Packs/Day Years [...] Info) Description 10/18/2024 11:00 AM EDT Telemedicine [facility] MED & PEDS 505 [place] [address] Colette Diop, BRICE 505 [place] [address] documented as of this encounter Visit Diagnoses Not on filedocumented in this encounter Additional Health Concerns Assessment Noted Time PHQ-9 Depression Total Score: 16 023 11:20 AM EDT documented as of this encounter Care Teams Lead Laying And Gluing Machine Operator Relationship Specialty Start Date End Date Kristy Wilder MD [address] [place] [address] PCP - General Internal Medicine 12/26/22 documented as of this encounter
--- OUTSIDE RECORDS SUMMARY | 2024-10-14 14:13 | XMS_ITS | Encounter Summary ---
Author Organization [employer] Address [address] [place] [address] Care Team Providers Care Director Of Restaurants Name Role Phone Khloe Fonseca [facility] Primary Care Provider +1- [phone] Kristy Wilder MD Primary Care Pro vider Reason for Visit * Reason Onset Date Comments pt1 10/03/2022 Encounter Details Date Type Department Care Team (Late st Contact Info) Description 10/03/2022 Telephone [facility] MEDICINE [address] [place] [address] Khloe Fonseca FNP [address] [place] [address] [place] [address] pt1 Social History Tobacco Use Types Packs/Day [...] Miscellaneous Notes * Telephone Encounter - Marko Rodriguez - 10/03/2022 4:21 PM EDT Tc from pt requesting a pt1 ride Date: oct 07 2022 Time: 2:30 pm address: [address] [place] [address] [address], [place] [address] specialty: # visits: greens tier: no Wheelchair: no Date:10/23/22 Time:02 pm address: [facility] specialty: PCP # visits: greens tier: no Wheelchair: no Date:11/07/22 Time: 1:30 address: [facility] specialty: PCP # visits: greens tier: no Wheelchair:no documented in this encounter Plan of Treatment Upcoming Encounters Date Type Department Care Team (Late st Contact Info) Description 10/18/2024 11:00 AM EDT Telemedicine [facility] MED & PEDS 505 [place] [address] Colette Diop, BRICE 505 [place] [address] documented as of this encounter Visit Diagnoses Not on filedocumented in this encounter Additional Health Concerns Assessment Noted Time PHQ-9 Depression Total Score: 11 022 1:16 PM EST documented as of this encounter Care Teams Director Of Restaurants Relationship Specialty Start Date End Date Khloe Fonseca FNP PCP - General Family Medicine 02/05/22 12/25/22 Kristy Wilder MD [address] [place] [address] [phone] PCP - General Internal Medicine 12/26/22 documented as of this encounter
--- OUTSIDE RECORDS SUMMARY | 2024-10-14 14:13 | XMS_ITS | Encounter Summary ---
Author Organization [facility] Address [address] [place] [address] Care Team Providers Care Auto Haulaway Driver Name Role Phone Davon Wu Primary Care Provider [phone] Encounter Details Date Type Department Care Team (Late st Contact Info) Description 10/31/2020 Orders Only [facility] XRay [address] [place], [place] [phone] Winifred Winston MD 55 [place], [place] [phone] Social History Tobacco Use Types Packs/Day Years [...] on filedocumented in this encounter Care Teams Auto Haulaway Driver Relationship Specialty Start Date End Date Davon Wu 230 [place] [address] PCP - General Internal Medicine 09/28/18 documented as of this encounter
--- OUTSIDE RECORDS SUMMARY | 2024-10-14 14:13 | XMS_ITS | Encounter Summary ---
Author Organization [employer] Address 75 [facility] 7 [place] [address] Care Team Providers Care Trimmer Climber Name Role Phone Kristy Wilder MD Primary Care Pro vider Reason for Visit * Reason Onset Date Comments Reschedule 07/07/2023 Encounter Details Date Type Department Care Team ([facility] st Contact Info) Description 07/07/2023 Telephone [facility] MEDICINE 230 [place], [place] [phone] Kristy Wilder MD 230 [place], [place] [phone] Reschedule Social History Tobacco Use Types Packs/Day [...] Tc from pt requesting to r/s 07/25 SEWER REPAIRER appointment due to pt having 2 appointments scheduled same day and will be doing chemo. Please contact pt at [phone] (Citizen Of [place]) documented in this encounter Plan of Treatment Upcoming Encounters Date Type Department Care Team ([facility] st Contact Info) Description 10/18/2024 11:00 AM EDT Telemedicine [facility] MED & PEDS 505 [place] [address] Colette Diop RN 505 [place] [address] documented as of this encounter Visit Diagnoses Not on filedocumented in this encounter Additional Health Concerns Assessment Noted Time PHQ-9 Depression Total Score: 16 023 11:20 AM EDT documented as of this encounter Care Teams Trimmer Climber Relationship Specialty Start Date End Date Kristy Wilder MD [address] [place] [address] PCP - General Internal Medicine 12/26/22 documented as of this encounter
--- OUTSIDE RECORDS SUMMARY | 2024-10-14 14:13 | XMS_ITS ---
Author Organization [employer] Address 75 [facility] [address], [place] [address] Care Team Providers Care Gas Examiner Name Role Phone Kristy Wilder MD Primary Care Pro vider CHW Complex Status:Outreach In Progress (Enrolling) Start date:10/11/2024 Enrollment reason:ADT Feed Overview ADT- [facility] ED 10/08/24 Case Team Name Relationship Phone Mirtha Espinosa (Responsible Staff) [phone] Continued Care and Services Coordination
--- OUTSIDE RECORDS SUMMARY | 2024-10-14 14:13 | XMS_ITS ---
Author Organization [employer] Address [address] [facility] [address], [place] [address] Care Team Providers Care Habitat Conservation Planner Name Role Phone Kristy Wilder MD Primary Care Pro vider CM Complex Status:Outreach In Progress (Enrolling) Start date:10/11/2024 Enrollment reason:ADT Feed Overview ADT- [facility] ED 10/08/24 Case Team Name Relationship Phone Frandy Melara RN Registered Nurse(Responsible St aff) [phone] Continued Care and Services Coordination
--- OUTSIDE RECORDS SUMMARY | 2024-10-14 14:13 | XMS_ITS | Clinical Summary ---
Author Organization [facility] Address [address] [place] [address] Phone Care Team Providers Care Mechanical Systems Design Engineer Name Role Phone Physician, No Pcp Primary Care Provider Unavaila ble Allergies Active Allergy Reactions Criticality Noted Date Comments Morphine 05/09/2024 Medications cephalexin (KEFLEX) 500 mg capsule Take 1 capsule (500 mg total) by mouth 4 (four) times a day for 10 days. 40 each 5 10/19/19 25 Active triamcinolone (KENALOG) 0.1 % cream Apply thin film to affected areas(s) four times daily. 15 g 5 10/09/19 26 Active clotrimazole-be tamethasone (LOTRISONE) 1-0.05 % cream Apply topically 2 (two) times a day for 10 days. Apply to under breast and groin 2 times daily prn 15 g 5 10/19/19 25 Active oxyCODONE (OXY-IR) 5 mg immediate release capsule Take 1 capsule (5 mg total) by mouth every 6 (six) hours if needed for severe pain for up to 3 days. Max Daily Amount: 20 mg 12 capsule 5 10/12/19 25 Active Problems No known active problems Encounters Date Type Department Care Team Description 10/08/2024 9:14 AM EDT - 10/08/2024 11:37 AM EDT Emergency [facility] Emergency [address] [place] [address] Bryson Sinha MD Adverse effect of drug, initial encounter (Primary Dx); Blistering rash Discharge Disposition: Home or Self Care from Last 3 Months Medical History Medical History Date Comments Diabetes mellitus ([facility] V24, [facility] V28) Hypertension Social History Tobacco Use Types Packs/Day Years Used Date Smoking Tobacco: Never Assessed Comments Unknown Sex and Gender Information Value Date Recorded Sex Assigned at Not on file Legal Sex Female 6:15 PM EST Gender Identity Not on file Sexual Orientation Not on file Obstetrics History Last Filed Vital Signs Vital Sign Reading Time Taken Comments Blood Pressure 139/90 10/08/2024 9:12 AM EDT Pulse 60 10/08/2024 11:22 AM EDT Temperature 36.9 ??C (98.4 ??F) 10/08/2024 11:22 AM E DT Respiratory Rate 18 10/08/2024 11:22 AM EDT Oxygen Saturation 98% 10/08/2024 11:22 AM EDT Inhaled Oxygen Concentration - - Weight 84.4 kg (186 lb) 10/08/2024 9:12 AM EDT Height 167.6 cm (5' 6 ) 10/08/2024 9:12 AM EDT Body Mass Index 30.02 10/08/2024 9:12 AM EDT Plan of Treatment Health Maintenance Due [...] 03/17/2024 Diabetes: Annual GFR (Glomerular Filtration Rate) 09/17/2025 09/17/2024, 09/09/2024, 05/09/2024, Additional history exists Hypertension/CHF/CAD Annual BMP Blood Test 09/17/2025 09/17/2024, 09/09/2024, 05/09/2024, Additional history exists Cholesterol Screening (Lipid Panel) 12/18/2028 12/19/2023 DTaP,Tdap,and [...] mmol/L LAB CHEMISTRY METHOD 05/09/2024 2:26 PM EST [facility] Potassium 4.1 3.5 - 5.5 mmol/L LAB CHEMISTRY METHOD 05/09/2024 2:26 PM [facility] Chloride 107 96 - 110 mmol/L LAB CHEMISTRY METHOD 05/09/2024 2:26 PM [facility] CO2 32 21 - 32 mmol/L LAB CHEMISTRY METHOD 05/09/2024 2:26 PM [facility] Anion Gap 4 3 - 11 LAB CHEMISTRY METHOD 05/09/2024 2:26 PM [facility] Glucose 94 70 - 100 mg/dL LAB CHEMISTRY METHOD 05/09/2024 2:26 PM [facility] BUN 13 5 - 25 mg/dL LAB CHEMISTRY METHOD 05/09/2024 2:26 PM [facility] Creatinine 0.79 0.50 - 1.10 mg/dL LAB CHEMISTRY METHOD 05/09/2024 2:26 PM [facility] eGFR 87 >=60 mL/min/1. 73m2 LAB CHEMISTRY METHOD 05/09/2024 2:26 PM [facility] Comment:Calculation based on the??Chronic Kidney Disease Epidemiology Collaboration (CKD-EPI) equation refit??without adjustment for race. BUN/Creatinine Ratio 16.5 LAB CHEMISTRY METHOD 05/09/2024 2:26 PM [facility] Calcium 9.5 8.5 - 10.5 mg/dL LAB CHEMISTRY METHOD 05/09/2024 2:26 PM [facility] AST (SGOT) 23 10 - 42 unit/L LAB CHEMISTRY METHOD 05/09/2024 2:26 PM [facility] ALT (SGPT) 31 10 - 60 unit/L LAB CHEMISTRY METHOD 05/09/2024 2:26 PM [facility] Alkaline Phosphatase 91 42 - 121 unit/L LAB CHEMISTRY METHOD 05/09/2024 2:26 PM [facility] Total Protein 6.6 6.0 - 8.0 g/dL LAB CHEMISTRY METHOD 05/09/2024 2:26 PM EST [facility] Albumin 3.5 3.2 - 5.0 g/dL LAB CHEMISTRY METHOD 05/09/2024 2:26 PM EST [facility] Total Bilirubin 0.8 0.0 - 1.4 mg/dL LAB CHEMISTRY METHOD 05/09/2024 2:26 PM EST [facility] Blood Venous blood specimen / Unknown Venipuncture / Unknown 05/09/2024 1:32 PM EST 05/09/2024 1:57 PM EST us Bryson Sinha MD LAB BLOOD ORDERABLES Final Result [facility] ([facility]) [facility] [address] [place] [address], [place] [phone] from Last 3 Months or Most Recently Relevant to Health Maintenance Insurance MEDICAID - [place] Care Teams Mechanical Systems Design Engineer Relationship Specialty Start Date End Date Physician, No Pcp PCP - General 05/09/24
--- OUTSIDE RECORDS SUMMARY | 2024-10-14 14:13 | XMS_ITS | Encounter Summary ---
Author Organization [employer] Address [address] [facility] [address] [place] [address] Care Team Providers Care Supervisor Mechanic Boilermaking Name Role Phone Kristy Wilder MD Primary Care Pro vider Reason for Visit * Reason Onset Date Comments Referral 10/07/2024 Encounter Details Date Type Department Care Team ([facility] st Contact Info) Description 10/07/2024 Telephone [facility] [address] [place], [place] [phone] Kristy Wilder MD [address] [place], [place] [phone] Referral Social History Tobacco Use Types Packs/Day Years [...] encounter Miscellaneous Notes * Telephone Encounter - Zoe Beach RN - 10/11/2024 10:56 AM EDT Pt seen at [facility] ED for blisters on hands and feet from chemotherapy. Was given cream and pain medication. Pt to follow up with oncology. * Telephone Encounter - Marisol Juarez RN - 10/08/2024 9:30 AM EDT Pt currently at [facility] ED for blister like spots on both feet and hands. Will status check this pt anddetermine necessity for follow up * Telephone Encounter - Karishma Lozada - 10/07/2024 4:07 PM EDT Patient walked in requesting emergency referral. She couldn't get chemo done today because she has blisters on her feet. Patient was advised to get [facility] Podiatr[facility]ordelia William DPM. Patient was advised to be seen in [facility] if any pain or discomfort/ED ([facility] has noavailability or extended hours). Patient was educated on [facility] hours of operation . Patient said she will be going tomorrow morning. documented in this encounter Plan of Treatment Upcoming Encounters Date Type Department Care Team (Late st Contact Info) Description 10/18/2024 11:00 AM EDT Telemedicine [facility] [address] [place] [phone] Colette Diop, RN [address] [place], [place] documented as of this encounter Visit Diagnoses Not on filedocumented in this encounter Additional Health Concerns Assessment Noted Time PHQ-9 Depression Total Score: 4 10/31/19 24 1:38 PM EDT documented as of this encounter Care Teams Supervisor Mechanic Boilermaking Relationship Specialty Start Date End Date Kristy Wilder MD [address] [place] [id number] PCP - General Internal Medicine 12/26/22 documented as of this encounter
--- OUTSIDE RECORDS SUMMARY | 2024-10-14 14:13 | XMS_ITS | Encounter Summary ---
Author Organization [employer] Address [address] [facility] [address] [place] [address] Care Team Providers Care Lab Support Technician Name Role Phone Kristy Wilder MD Primary Care Pro vider Reason for Visit * Reason Comments Med Refill Encounter Details Date Type Department Care Team ([facility] st Contact Info) Description 09/25/2023 Refill [facility] [address] [place], [place] [phone] Kristy Wilder MD [address] [place], [place] [phone] Primary insomnia Social History Tobacco Use Types [...] Upcoming Encounters Date Type Department Care Team ([facility] st Contact Info) Description 10/18/2024 11:00 AM EDT Telemedicine [facility] MED & PEDS [address] [place] [address] Colette Diop, BRICE [address] [place] [address] documented as of this encounter Visit Diagnoses Diagnosis Primary insomnia Persistent disorder of initiating or maintaining sleep documented in this encounter Additional Health Concerns Assessment Noted Time PHQ-9 Depression Total Score: 16 023 11:20 AM EDT documented as of this encounter Care Teams Lab Support Technician Relationship Specialty Start Date End Date Kristy Wilder MD [address] [place] [phone] PCP - General Internal Medicine 12/26/22 documented as of this encounter
--- OUTSIDE RECORDS SUMMARY | 2024-10-14 14:13 | XMS_ITS | Clinical Summary ---
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 [...] BLOOD SUGAR THREE TIMES DAILY 100 strip Active TRUEplus Lancets 33G misc TEST BLOOD SUGAR THREE TIMES DAILY 100 each Active Alcohol Swabs (Alcohol Prep) 70 % padsIndications:T ype 2 diabetes mellitus without complications (CMS/HCC) USE DIRECTED THREE TIMES DAILY 100 each Active sertraline (Zoloft) 100 MG tablet Take 1.5 tablets (150 mg) by mouth Once per day. take 1.5 tablet (150mg) by oral route every day 45 tablet 1 11/21/2 024 Active zolpidem (Ambien) 10 MG tabletIndications [...] BEDTIME NEEDED 90 capsule 1 025 Active atorvastatin (Lipitor) 10 MG [...] AT NOON 90 tablet 1 025 Active levothyroxine (Synthroid, Levoxyl) 112 MCG tabletIndications :Hypothyroidism, unspecified type TAKE 1 TABLET BY MOUTH EVERY DAY BEFORE BREAKFAST 90 tablet 025 Active propranolol (Inderal) 10 MG tablet TAKE 1 TABLET BY MOUTH TWICE DAILY IN THE MORNING AND IN THE EVENING 180 tablet 025 Active levothyroxine (Synthroid, Levoxyl) 112 MCG tabletIndications :Hypothyroidism, unspecified type TAKE 1 TABLET BY MOUTH EVERY DAY BEFORE BREAKFAST 90 tablet 1 10/21/2 024 2024 Discontinued propranolol (Inderal) 10 MG tablet TAKE 1 TABLET BY MOUTH TWICE DAILY IN THE MORNING AND IN THE EVENING 180 tablet 025 2024 Discontinued Active Problems [...] 8:00 PM EDT): Encouraged pt to bring [employer] application for [employer] to Forms team. Pt has difficulty breathing r/t lung cancer diagnosis Pt will contact [employer] about increasing hours F/u PRN Therapeutic opioid [...] was grade 3. status post nephrectomy, at [facility] in January. 9.5 cm clear [...] Encounters Date Type Department Care Team Description 10/12/[address] [facility] [address] [place] [address] Chio Aguilar MD 10/11/2024 Patient Outreach [facility] [address] [place] [phone] Kristy Wilder MD Care Coordination 10/11/2024 Patient Outreach [facility] [address] [place] [phone] Kristy Wilder MD Care Coordination (C3 -[facility] Mirtha Espinosa chart review) 10/11/2024 Patient Outreach [facility] [address] [place] [phone] Kristy Wilder MD Care Coordination ([facility]- chart review) 10/11/2024 Patient Outreach [facility] [address] [place] [phone] Kristy Wilder MD 10/07/2024 Telephone [facility] [address] [place] [address] Kristy Wilder MD Referral 10/06/2024 Refill [facility] [address] [place] [phone] Kristy Wilder MD Hypothyroidism, unspecified type 09/21/2024 Orders Only [facility] External Provider, [facility] 09/20/2024 Telephone [facility] [address] [place] [address] Kristy Wilder MD chart prep 09/20/2024 Patient Outreach [facility] [address] [place] [address] Kristy Wilder MD Care Coordination ([facility] outreach for SDOH food needs-referral completed /) 09/20/[address] [facility] [address] [place] [address] Kristy Wilder MD Pre-visit Planning (SDOH positive. Tobacco screening negative.) 09/17/2024 Orders Only GENERIC EXTERNAL DATA DEPARTMENT Provider, Generic External Data 09/17/[address] [phone] Kristy Wilder MD Triage 09/13/2024 Refill [facility] [address] [place] [phone] Ольга Tillman MD Mixed hyperlipidemia; Gastroesophageal reflux disease without esophagitis; Primary hypertension 09/09/2024 Orders Only GENERIC EXTERNAL DATA DEPARTMENT Provider, Generic External Data 09/09/2024 Telephone [facility] [address] [place] [phone] Kristy Wilder MD NTTS 09/04/[address] [facility] [address] [place] [address] Cris Pickett FNP Chief Scientist 08/20/2024 Population Health Risk Score [facility] Department [address] [place] [phone] Provider, Population Health Generic 08/12/2024 Orders Only [facility] External Provider, [facility] 08/03/2024 Patient Outreach [facility] [address] [place] [phone] Kristy Wilder MD Care Coordination (CH[facility] outreach for SDOH PT-1 and food needs-referral completed /) 08/03/2024 Telephone [facility] [address] [place] [phone] Kristy Wilder MD PT-1 07/22/2024 1:30 PM EST Clinical Support [facility] [address] [place] [address] Colette Diop RN Back pain, unspecified back location, unspecified back pain laterality, unspecified chronicity 07/22/[address] [facility] [address] [place] [address] Colette Diop RN 07/22/2024 Travel from Last 3 Months Immunizations Name Administration [...] Upcoming Encounters Date Type Department Care Team ([facility] st Contact Info) Description 10/18/2024 11:00 AM EDT Telemedicine [facility] [address] [place] [address] Colette Diop, BRICE [address] [place] [phone] Health Maintenance Due Date Last Done Comments [...] Additional history exists Eye Exam 03/17/2026 03/17/2024, 1002/2024, 03/17/2024, Additional history exists Colonoscopy 11/23/2028 11/23/2018 [...] Procedure Name Priority Date/Time Associated Diagnosis Comments MR BRAIN W AND WO CONTRAST Routine 09/21/2024 3:[address] HEAD WO CONTRAST Routine 09/17/2024 1 [...] Recently Relevant to Health Maintenance Results * Mr Brain w/ and w/o Contrast (09/21/2024 3:54 PM EDT) Anatomical Region Laterality Modality Brain Magnetic Resonan ce 09/21/2024 3:54 PM EDT Narrative 09/22/2024 7:48 AM EDT ? [facility] ?[address] ?[place] [address] ? Magnetic Resonance Report ? Signed ? Patient: Krys Gillis ?MR# ?? : [id number] ? : 1965 ?Acct:[id number] ? Age/Sex: 59 / F ?ADM Date: 09/21/24 ? Loc: HO.MRI ? Attending Dr: Justina Erickson MD ? Ordering Physician: Justina Erickson MD ?? Date of Service: 09/21/24 ?? Procedure(s): MR head/brain wo/w con ?? Accession Number(s): [id number] ? cc: Justina Erickson MD; rKisty Wilder MD ? EXAMINATION: ?? MR BRAIN WITHOUT AND WITH CONTRAST ? CLINICAL INFORMATION: ?? Renal cell cancer.. Hemiparesis, right-sided ? COMPARISON: ?? Correlated to CT brain and CT angiogram brain dated September 17, 2024 and ?? September 09, 2024. ? TECHNIQUE: ?? Multiplanar, multisequence MRI of the brain was obtained before and ?? after the intravenous administration of 10 mL gadolinium based without ?? reported immediate complications.. ? FINDINGS: ?? There is a focal, 3 mm likely extra-axial, enhancing and restricted ?? diffusion signal abnormality in the inferior lateral aspect of the ?? right Meckel's cave and in proximity to the right trigeminal nerves. ? No acute intracranial hemorrhage, mass effect, midline shift, ?? hydrocephalus or herniation. ?? No restricted diffusion within the brain parenchyma. ?? Flow-void signal within the main cerebral vessels is normal. ?? The main cerebral venous sinuses are patent without intraluminal ?? filling defects. There is a dominant left-sided transverse and sigmoid ?? sinus and left internal jugular bulb. ?? Vegas-white matter differentiation is normal. ?? Sellar/suprasellar region demonstrated no gross masses or signal ?? abnormality. ?? Craniocervical junction is intact and normal. ? MR/MR head/brain wo/w con ?? IMPRESSION: ?? Focal 3 mm restricted diffusion and enhancing signal abnormality in the ?? inferior lateral right Meckel's cave. Recommend dedicated the thin ?? sections trigeminal nerve protocol for further imaging evaluation. ?? No acute stroke/nonhemorrhagic ischemia. ? Electronically signed by: ??Helio Ortega MD ??09/22/2024 07:45 AM ?? EDT RP ? Dictated By: ?Helio Oakes MD ? Signed By: ?<Electronically signed by Helio Beach MD in OV> ? 09/22/24 0745 ? DD/ 1554 ? TD/TT: 09/21/24 1617 ? Fitting Room Inspector: ? Procedure Note Katharine Oneil - 09/22/[address] [address] Magnetic Resonance Report Signed Patient: Krys Gillis# : [id number] : 1965Acct:[id number] Age/Sex: 59 / FADM Date: 09/21/24 Loc: HO.MRI Attending Dr: Justina Erickson MD Ordering Physician: Justina Erickson MD Date of Service: 09/21/24 Procedure(s): MR head/brain wo/w con Accession Number(s): [id number] cc: Justina Erickson MD; Kristy Wilder MD EXAMINATION: MR BRAIN WITHOUT AND WITH CONTRAST CLINICAL INFORMATION: Renal cell cancer.. Hemiparesis, right-sided COMPARISON: Correlated to CT brain and CT angiogram brain dated September 17, 2024 and September 09, 2024. TECHNIQUE: Multiplanar, multisequence MRI of the brain was obtained before and after the intravenous administration of 10 mL gadolinium based without reported immediate complications.. FINDINGS: There is a focal, 3 mm likely extra-axial, enhancing and restricted diffusion signal abnormality in the inferior lateral aspect of the right Meckel's cave and in proximity to the right trigeminal nerves. No acute intracranial hemorrhage, mass effect, midline shift, hydrocephalus or herniation. No restricted diffusion within the brain parenchyma. Flow-void signal within the main cerebral vessels is normal. The main cerebral venous sinuses are patent without intraluminal filling defects. There is a dominant left-sided transverse and sigmoid sinus and left internal jugular bulb. Vegas-white matter differentiation is normal. Sellar/suprasellar region demonstrated no gross masses or signal abnormality. Craniocervical junction is intact and normal. MR/MR head/brain wo/w con IMPRESSION: Focal 3 mm restricted diffusion and enhancing signal abnormality in the inferior lateral right Meckel's cave. Recommend dedicated the thin sections trigeminal nerve protocol for further imaging evaluation. No acute stroke/nonhemorrhagic ischemia. Electronically signed by: Helio Ortega MD 09/22/2024 07:45 AM EDT Dictated By: Helio Oakes MD Signed By: <Electronically signed by Helio Beach MDin OV> 09/22/24 0745 DD/ 1554 TD/TT: 09/21/24 1617 Fitting Room Inspector: [facility] External Provider IMG MRI PROCEDURES Final Result * CT Head w/o Contrast (09/17/2024 1:54 PM EDT) Anatomical Region Laterality Modality Head, Neck Computed Tomogra phy 09/17/2024 1:54 PM EDT Narrative 09/17/2024 2:29 PM EDT ? [facility] ?[address] ?[place] [address] ? CT Scan Report ? Signed ? Patient: Elis,Krys ?MR# ?? : [id number] ? : 1965 ?Acct:[id number] ? Age/Sex: 59 / F ?ADM Date: 09/17/24 ? Loc: HO.ED ? Attending Dr: ? Ordering Physician: Shonda Pimentel ?? Date of Service: 09/17/24 ?? Procedure(s): CT head/brain wo IV con ?? Accession Number(s): [id number] ? cc: Kristy Wilder MD; Shonda Pimentel ? Report Number: ?? [id number]: Total DLP = ??715.00 mGy-cm ?? EXAMINATION: [...] parenchyma is unremarkable. There is normal ?? vegas/white differentiation. The ventricular system is normal in [...] DD/ 1354 ? TD/TT: 09/17/24 1411 ? Fitting Room Inspector: ? Procedure Note Donotlucyinterpreter, Image - 09/17/[address] [address] [address] Scan Report Signed Patient: Krys GillisMR# : [id number] : 1965Acct:[id number] Age/Sex: 59 / FADM Date: 09/17/24 Loc: HO.ED Attending Dr: Ordering Physician: Shonda Pimentel Date of Service: 09/17/24 Procedure(s): CT head/brain wo IV con Accession Number(s): [id number] cc: Kristy Wilder MD; Shonda Pimentel Report Number: [id number]: Total DLP = 715.00 mGy-cm EXAMINATION: CT [...] brain parenchyma is unremarkable. There is normal vegas/white differentiation. The ventricular system is normal in [...] Gabo Miller MD 09/17/2024 02:27 PM EDT RP Dictated By: Gabo Miller MD Signed By: <Electronically signed by Gabo Miller MD in OV> 09/17/24 1427 DD/ 1354 TD/TT: 09/17/24 1411 Fitting Room Inspector: [facility] External Provider IMG CT PROCEDURES Final Result * (ABNORMAL) Urinalysis, Complete, with Reflex to Culture (09/17/2024 10:39 AM EDT) Color Urine Yellow [facility] Appearance Urine Clear [facility] PH 5.5 5.0 - 9.0 [facility] Glucose Urine UA Negative Negative mg/dL [facility] Urine Blood Negative Negative [facility] Specific [place] - Urine 1.015 1.005 - 1.025 [facility] Urine Protein Negative Neg-Trace mg/dL [facility] Urine Ketones Negative Negative mg/dL [facility] Nitrite Urine Negative Negative [facility] Leukocyte Esterase Urine Large (3+)(A) Negative [facility] RBC Urine 0-2 0 - 2 /HPF [facility] Urine WBC 21-50(A) 0 - 5 /HPF [facility] Urine Squamous Epithelial Cell 6-10 0 - 2 /HPF [facility] Urine Bacteria None Seen None Seen [facility] Hyaline Casts, Urine 0-2 0 - 2 /LPF [facility] 09/17/2024 10:3 9 AM EDT 09/17/2024 10:45 AM EDT Narrative [facility] - 09/17/2024 10:55 AM EDT [id number], Clean Catch Generic External Data Provider LAB URINE ORDERAB LES Final Result Performing Organization Address [facility] Co de Phone Number [facility] [address] [place] [phone] * High Sensitivity Troponin I (09/17/2024 10:27 AM EDT) Only the most recent of2 resultswithin the time period is included. Pathologist [facility] TROPONIN I HIGH SENSITIVITY <2.7 <3.5 - 17.0 ng/L [facility] Comment:The Rodriges high sens itivity Troponin-I results should beused in conjunction with other diagnostic information suchas ECG, clinical observations and information, and patientsymptoms to aid in the diagnosis of HI. 09/17/2024 10:2 7 AM EDT 09/17/2024 2:09 PM EDT Generic External Data Provider LAB BLOOD ORDERAB LES Final Result Performing Organization Address [facility] de Phone Number [facility] [address] [place] [phone] * SARS-CoV-2 RNA, Influenza A/B, and RSV RNA, Ql NAAT (09/17/2024 10:27 AM EDT) Only the most recent of2 resultswithin the time period is included. Pathologist [facility] Influenza A PCR NEGATIVE Negative [facility] Influenza B PCR NEGATIVE Negative [facility] Resp Syncy Virus RNA Qual PCR NEGATIVE Negative [facility] SARS COV2 PCR NEGATIVE Negative [...] use by authorized laboratories.Testing performed on the [employer] GeneXpert utilizingreal-time RT-PCR.All SARS CoV2 and positive influenza A/B results arereported to [facility]. 09/17/2024 10:2 7 AM EDT 09/17/2024 10:34 AM EDT us Generic External Data Provider LAB MICROBIOLOGY - GENERAL ORDERABLES Final Result [facility] [address] [place] [address] [phone] * CBC auto differential (09/17/2024 10:27 AM EDT) Only the most recent of2 resultswithin the time period is included. White Blood Count 5.1 4.8 - 10.8 X10*3/uL [facility] Red Blood Count 4.65 4.20 - 5.50 X10*6/uL [facility] Hemoglobin 13.7 12.0 - 16.0 g/dl [facility] Hematocrit 39.9 37.0 - 47.0 % [facility] Mean Corpuscular Volume 85.8 80.0 - 98.0 fL [facility] Mean Corpuscular Hemoglobin 29.5 27.0 - 33.0 pg [facility] Mean Corpuscular HGB Conc 34.3 31.0 - 35.0 g/dl [facility] Red Cell Distribution Width 13.0 11.0 - 16.0 % [facility] Platelet Count 188 160 - 400 X10*3/uL [facility] Mean Platelet Volume 9.6 9.4 - 12.3 fL [facility] Neutrophils Percent Auto 58.6 45 - 73 % [facility] Imm Gran Pct Auto 0.2 0.0 - 0.4 % [facility] Lymphocytes Percent Auto 32.3 20 - 40 % [facility] Monocytes Percent Auto 5.4 2 - 11 % [facility] Eosinophils Percent Auto 3.1 0 - 4 % [facility] Basophils Percent Auto 0.4 0 - 2 % [facility] NRBC Pct Auto 0.0 0.0 - 0.2 /100WBC [facility] Neutrophils Absolute Auto 3.0 2.0 - 8.3 x10*3/uL [facility] Imm Gran Abs Auto 0.01 0.00 - 0.03 X10*3/uL [facility] Lymphocytes Absolute Auto 1.7 1.2 - 4.9 X10*3/uL [facility] Monocytes Absolute Auto 0.3 0.1 - 1.2 X10*3/uL [facility] Eosinophils Absolute Auto 0.2 0.0 - 0.4 X10*3/uL [facility] Basophils Absolute Auto 0.0 0.0 - 0.2 X10*3/uL [facility] NRBC Abs Auto 0.000 0.0 - 0.012 X10*3/uL [facility] 09/17/2024 10:2 7 AM EDT 09/17/2024 10:34 AM EDT us Generic External Data Provider LAB BLOOD ORDERAB LES Final Result Performing Organization Address [facility]/ZIP Co de Phone Number [facility] [address] [place] [phone] * Magnesium (09/17/2024 10:27 AM EDT) Only the most recent of2 resultswithin the time period is included. Magnesium 1.6 1.6 - 2.6 mg/dL [facility] 09/17/2024 10:2 7 AM EDT 09/17/2024 10:34 AM EDT us Generic External Data Provider LAB BLOOD ORDERAB LES Final Result Performing Organization Address [facility]/ZIP Co de Phone Number [facility] [address] [place] [phone] * (ABNORMAL) Comprehensive Metabolic Panel (09/17/2024 10:27 AM EDT) Sodium 142 135 - 145 mmol/L [facility] Potassium 4.2 3.3 - 5.1 mmol/L [facility] Chloride 109(H) 96 - 108 mmol/L [facility] Carbon Dioxide 27 22 - 29 mmol/L [facility] Anion Gap 10(L) 12 - 20 [facility] Urea Nitrogen (BUN) 14 9 - 16 mg/dL [facility] Creatinine, Serum 0.79 0.5 - 1.4 mg/dL [facility] Creatinine Clr Calc Pharmacy 87.1 [facility] Comment:Provided height and weight: 167.64 cm,86.8 kg.eGFR (calculated from the MDRD study equation) and eCrCl(calculated from the Cockcroft-Gault equation) are based ondifferent parameters and may not yield comparable results.If eCrCl result is absurd, please check patient'sheight/weight. Estimated Glomerular Filt Rate >60 [facility] Comment:Chronic Kidney Disea se: Estimated GFR < 60 mL/min/1.18o1Dityvx Kidney Disease: Estimated GFR < 15 mL/min/1.73m2 Glucose 105 60 - 115 mg/dL [facility] Calcium 9.1 8.4 - 10.2 mg/dL [facility] Bilirubin, Total 0.4 0.0 - 1.0 mg/dL [facility] Aspartate Amino Transferase 50(H) 5 - 31 U/L [facility] Alanine Aminotransferase 70(H) 0 - 31 U/L [facility] Total Protein 6.9 6.5 - 8.0 g/dL [facility] Albumin Level 3.9 3.5 - 5.0 g/dL [facility] Alkaline Phosphatase 102 39 - 117 U/L [facility] 09/17/2024 10:2 7 AM EDT 09/17/2024 10:34 AM EDT us Generic External Data Provider LAB BLOOD ORDERAB LES Final Result [facility] [address] [place] [address] [phone] * Culture, Urine, Routine (09/17/2024 12:00 AM EDT) Urine Urine specimen obtained by clean catch procedure / Unknown 09/17/2024 09/17/2024 Comment:UACC Narrative [facility] - 09/18/2024 11:44 AM EDT Urine Culture No growth. Specimen Source: Urine clean catch us Generic External Data Provider LAB MICROBIOLOGY - GENERAL ORDERABLES Final Result [facility] [address] [place] [address] [phone] * CTA Head Neck w/ and w/o Contrast (09/09/2024 6:51 PM EDT) Anatomical Region Laterality Modality Head, Neck Computed Tomogra phy 09/09/2024 6:51 PM EDT Narrative 09/09/2024 6:52 PM EDT ? [facility] ?[address] ?[place] [address] ? CT Scan Report ? Signed ? Patient: Krys Gillis ?MR# ?? : [id number] ? : 1965 ?Acct:[id number] ? Age/Sex: 59 / F ?ADM Date: 09/09/24 ? Loc: HO.ED ? Attending Dr: ? Ordering Physician: Ana Laura Brownlee DO ?? Date of Service: 09/09/24 ?? Procedure(s): CT angio head neck ?? Accession Number(s): [id number] ? cc: Ana Laura Brownlee DO; Kristy Wilder MD ? Report Number: ?? [id number]: Total DLP = 1492.00 mGy-cm ? CLINICAL [...] high-grade narrowing is seen in the ?? fhkqwq-nz-Kpskwt. ?? No aneurysm or vascular malformation is [...] MD in OV> ?09/09/24 1852 ? DD/ 1851 ? TD/TT: 09/09/24 185 ? Fitting Room Inspector: ? Procedure Note Katharine Oneil - 09/09/[address] [place] [address] [address] Scan Report Signed Patient: Krys GillisMR# : [id number] : 1965Acct:[id number] Age/Sex: 59 / FADM Date: 09/09/24 Loc: HO.ED Attending Dr: Ordering Physician: Ana Laura Brownlee DO Date of Service: 09/09/24 Procedure(s): CT angio head neck Accession Number(s): [id number] cc: Ana Laura Brownlee DO; Kristy Wilder MD Report Number: [id number]: Total DLP = 1492.00 mGy-cm CLINICAL HISTORY: [...] focal high-grade narrowing is seen in the hshfmy-ox-Idrpna. No aneurysm or vascular malformation is identified. [...] in OV> 09/09/241851 DD/ 50 TD/TT: 09/09/241850 Fitting Room Inspector: [facility] External Provider IMG CT PROCEDURES Final Result * (ABNORMAL) Prothrombin Time-INR (09/09/2024 4:57 PM EDT) Prothrombin Time 13.2(H) 10.9 - 12.4 SEC [facility] INTERNATIONAL NORM RATIO 1.1 0.9 - 1.1 [facility] Comment:INTERNATIONAL NORMAL IZED RATIO (INR) [...] ORDERAB LES Final Result Performing Organization Address [facility] Co de Phone Number [facility] [address] [place] [phone] * (ABNORMAL) Hepatic Function Panel (09/09/2024 4:57 PM EDT) Pathologist [facility] Bilirubin, Total 0.3 0.0 - 1.0 mg/dL [facility] Bilirubin, Direct 0.1 0.0 - 0.5 mg/dL [facility] Aspartate Amino Transferase 41(H) 5 - 31 U/L [facility] Alanine Aminotransferase 56(H) 0 - 31 U/L [facility] Total Protein 6.3(L) 6.5 - 8.0 g/dL [facility] Albumin Level 3.8 3.5 - 5.0 g/dL [facility] Alkaline Phosphatase 99 39 - 117 U/L [facility] 09/09/2024 4:57 PM EDT 09/09/2024 5:03 PM EDT Generic External Data Provider LAB BLOOD ORDERAB LES Final Result Performing Organization Address [facility] de Phone Number [facility] [address] [place] [phone] * (ABNORMAL) Basic Metabolic Panel (09/09/2024 4:57 PM EDT) [facility] Sodium 143 135 - 145 mmol/L [facility] Potassium 4.4 3.3 - 5.1 mmol/L [facility] Chloride 110(H) 96 - 108 mmol/L [facility] Carbon Dioxide 27 22 - 29 mmol/L [facility] Anion Gap 10(L) 12 - 20 [facility] Urea Nitrogen (BUN) 18(H) 9 - 16 mg/dL [facility] Creatinine, Serum 0.73 0.5 - 1.4 mg/dL [facility] Creatinine Clr Calc Pharmacy 96.0 [facility] Comment:Provided height and weight: 167.64 cm,89.8 kg.eGFR (calculated from the MDRD study equation) and eCrCl(calculated from the Cockcroft-Gault equation) are based ondifferent parameters and may not yield comparable results.If eCrCl result is absurd, please check patient'sheight/weight. Estimated Glomerular Filt Rate >60 [facility] Comment:Chronic Kidney Disea se: Estimated GFR < 60 mL/min/1.50s7Kkjgzg Kidney Disease: Estimated GFR < 15 mL/min/1.73m2 Glucose 102 60 - 115 mg/dL [facility] Calcium 8.7 8.4 - 10.2 mg/dL [facility] 09/09/2024 4:57 PM EDT 09/09/2024 5:03 PM EDT us Generic External Data Provider LAB BLOOD ORDERAB LES Final Result [facility] [address] [place] [address] [phone] * CT Abdomen Pelvis w/ Contrast (08/13/2024 9:03 AM EST) Anatomical Region Laterality Modality Body, Pelvis, Abdomen Computed T omography 08/13/2024 9:03 AM EST Narrative 08/13/2024 9:04 AM EST ? [facility] ?[address] ?[place] [address] ? CT Scan Report ? Signed ? Patient: Krys Gillis ?MR# ?? : [id number] ? : 1965 ?Acct:[id number] ? Age/Sex: 59 / F ?ADM Date: 08/12/25 ? Loc: HO.CT ? Attending Dr: Justina Erickson MD ? Ordering Physician: Justina Erickson MD ?? Date of Service: 08/12/24 ?? Procedure(s): CT abdomen pelvis w IV con ?? Accession Number(s): [id number] ? cc: Justina Erickson MD; Kristy Wilder MD ? Report Number: ?? [id number]: Total DLP = ??927.64 mGy-cm ? CLINICAL [...] by Maria Esther Bhardwaj MD in OV> ?08/13/24903 ? DD/ 2 ? TD/TT: 08/13/24902 ? Fitting Room Inspector: ? Procedure Note Thad, Image - 08/13/[address] [place] [address] [address] Scan Report Signed Patient: Krys Gillis# : [id number] : 1965Acct:[id number] Age/Sex: 59 / FADM Date: 08/12/24 Loc: HO.CT Attending Dr: Justina Erickson MD Ordering Physician: Justina Erickson MD Date of Service: 08/12/24 Procedure(s): CT abdomen pelvis w IV con Accession Number(s): [id number] cc: Justina Erickson MD; Kristy Wilder MD Report Number: [id number]: Total DLP = 927.64 mGy-cm CLINICAL HISTORY: [...] in OV> 08/13/24903 DD/ 2 TD/TT: 08/13/24902 Fitting Room Inspector: [facility] External Provider IMG CT PROCEDURES Final Result * CT Chest w/ Contrast (08/13/2024 8:57 AM EST) Anatomical Region Laterality Modality Body, Chest Computed Tomogra phy 08/13/2024 8:57 AM EST Narrative 08/13/2024 8:59 AM EST ? [facility] ?[address] ?[place] [address] ? CT Scan Report ? Signed ? Patient: Elis,Krys ?MR# ?? : [id number] ? : 1965 ?Acct:[id number] ? Age/Sex: 59 / F ?ADM Date: 03/06/25 ? Loc: HO.CT ? Attending Dr: Justina Erickson MD ? Ordering Physician: Justina Erickson MD ?? Date of Service: 08/12/24 ?? Procedure(s): CT chest w IV con ?? Accession Number(s): [id number] ? cc: Justina Erickson MD; Kristy Wilder MD ? Report Number: ?? [id number]: Total DLP = ?0.00 mGy-cm ? CLINICAL [...] DD/ 0857 ? TD/TT: 08/13/24 0857 ? Fitting Room Inspector: ? Procedure Note Katharine Oneil - 08/13/[address] [address] [address] Scan Report Signed Patient: Krys Gillis# : [id number] : 1965Acct:[id number] Age/Sex: 59 / FADM Date: 08/12/24 Loc: HO.CT Attending Dr: Justina Erickson MD Ordering Physician: Justina Erickson MD Date of Service: 08/12/24 Procedure(s): CT chest w IV con Accession Number(s): [id number] cc: Justina Erickson MD; Kristy Wilder MD Report Number: [id number]: Total DLP = 0.00 mGy-cm CLINICAL HISTORY: [...] in OV> 08/13/24 0858 DD/ TD/TT: 08/13/24856 Fitting Room Inspector: [facility] External Provider IMG CT PROCEDURES Final Result * POCT Creatinine GFR (08/12/2024 8:45 AM EST) POCT Creatinine 1.1 0.5 - 1.4 mg/dL [facility] GFR POC 55 [facility] Comment:Chronic Kidney Disea se: Estimated GFR < 60 mL/min/1.63u2Vpnuiy Kidney Disease: Estimated GFR < 15 mL/min/1.73m2 08/12/2024 8:45 AM EST 08/13/2024 9:59 AM EST Narrative [facility] - 08/13/2024 10:01 AM EST [id number] Generic External Data Provider LAB POINT OF CARE TEST DOCKED DEVICE ORDERABLES Final Result [facility] [address] [place] [address] [phone] * POCT KAJAL-14 Urine Drug Screen (07/22/2024 12:01 PM EST) Urine Urine specimen obtained by clean catch procedure / Unknown 07/22/2024 12:01 PM EST Narrative Colette Diop RN - 07/22/2024 12:01 PM EST negative for THC, MOP, OXY, JACKIE, MET, AMP, BZO, BAR, MTD, BUPG, TCA, MDMA, PCP, PPX. Lot# [id number] Exp: 05-15-25 Kristy Mosley MD POINT OF [...] 8:49 AM EDT) Triglycerides 68 <150 mg/dL [facility] Comment:Desirable Triglyceri de: less than 150 mg/dLBorderline High Triglyceride 150-199 mg/dLHigh Triglyceride: 200-499 mg/dLVery High Triglyceride: greater than or equal to 5OO mg/dL Cholesterol 135 <200 mg/dL [facility] Comment:Desirable Cholestero l: less than 200 mg/dLBorderline High Cholesterol: 200-239 mg/dLHigh Cholesterol: greater than 239 mg/dL LDL Cholesterol Calculated 92 <100 mg/dL [facility] Comment:Desirable LDL: less than 100 mg/dLNear Optimal/Above Optimal LDL: 110- 129 mg/dLBorderline High LDL: 130-159 mg/dLHigh LDL: 160-189 mg/dLVery High LDL: greater than or equal to 190 mg/dL HDL Cholesterol 30(L) >40 mg/dL [facility] Comment:Desirable HDL: great er than 40 mg/dL Note: This HDL assay may give artificially low results in patients with liver disease. Blood Venous blood specimen / Unknown 12/19/2023 8:49 AM EDT 12/19/2023 11:06 AM EDT Kristy Mosley MD LAB BLOOD ORDERAB LES Final Result Performing Organization Address City/State/RUST Co de Phone Number [facility] [address] [place] [address] [phone] * BI Mammogram Screening Tomosynthesis Bilateral (12/05/2023 12:45 PM EDT) Anatomical Region Laterality Modality Breast Bilateral Mammography 12/05/2023 12:4 5 PM EDT Narrative 12/18/2023 1:26 PM EDT ? [facility] ? [address] [place] [address] ? Mammography Report ? Signed ? Patient: Matias Travis,Krys ?MR# ?? : [id number] ? : 1965 ?Acct:[id number] ? Age/Sex: 58 / F ?ADM Date: //24 ? Loc: HO.MAMMO ? Attending Dr: Kristy Mosley MD ? Ordering Physician: Kristy Wilder MD ?Re ?? sults: 2Benign Findings ? Date of Service: 12/05/23 ?Follow Up: 1 Year From Orig ?? inal Mammogram ? Procedure(s): MM tomosynthesis screening BI ?? Accession Number(s): [id number] ? cc: Kristy Wilder MD ? EXAMINATION: [...] 1323 ? DD/ 1245 ? TD/TT: ? Fitting Room Inspector: ? Procedure Note Donotuseinterpreter, Image - 12/18/2023 [facility] [address] [place] [address] Dr. Holl[place], [place] [address] Mammography Report Signed Patient: Krys GillisMR# : [id number] : 1965Acct:[id number] Age/Sex: 58 / FADM Date: 12/05/23 Loc: HO.MAMMO Attending Dr: Kristy Mosley MD Ordering Physician: Kristy Wilder sults: 2Benign Findings Date of Service: 12/05/23Follow Up: 1 Year From Orig inal Mammogram Procedure(s): MM tomosynthesis screening BI Accession Number(s): [id number] cc: Kristy Wilder MD EXAMINATION: MM SCREENING [...] in OV> 12/18/23 1323 DD/ 1245 TD/TT: Fitting Room Inspector: us Kristy Mosley MD IMG BI PROCEDURES Final Result * Albumin, Random Urine W/Creatinine (07/23/2023 10:06 AM EST) Creatinine, Urine 213.14 mg/dL [facility] Microalbumin Urine 16.0 mg/L [facility] Microalbum Creatinine Ratio Ur 7.5 <30 ug/mg cr [facility] Comment:Albumin/Creatinine R atio Reference Ranges: Normal: < 30 ug/mg creatinine Microalbuminuria: 30 - 300 ug/mg creatinineClinical Albuminuria: > 300 ug/mg creatinine 07/23/2023 10:0 6 AM EST 07/23/2023 11:20 AM EST Kristy Mosley MD LAB URINE ORDERAB LES Final Result Performing Organization Address [facility]/RUST Co de Phone Number [facility] [address] [place] [phone] * Hepatitis C Antibody with Reflex to HCV, RNA, Quantitative, Real-Time PCR (07/23/2023 10:05 AM EST) Hepatitis C Antibody Nonreactive Nonreactive [facility] Comment:Antibodies to HCV no t detected; does not exclude early acuteHCV infection. Blood Venous blood specimen / Unknown 07/23/2023 10:05 AM EST 07/23/2023 11:26 AM EST Kristy Mosley MD LAB BLOOD ORDERAB LES Final Result Performing Organization Address [facility]/ZIP Co de Phone Number [facility] [address] [place] [phone] * HIV-1/2 Antigen and Antibodies, Fourth [...] below the limit ofdetection of this assay.The [employer] HIV Ag/Ab Combo assay result andsupplemental assay results should be interpreted inconjunction with the patient's clinical presentation,history and other laboratory results. If the results areinconsistent with clinical evidence, additional testing issuggested to confirm the result. Blood Venous blood specimen / Unknown 07/23/2023 10:05 AM EST 07/23/2023 11:26 AM EST Kristy Mosley MD LAB BLOOD ORDERAB LES Final Result Performing Organization Address City/State/[place] Co de Phone Number [facility] [address] [place] [phone] * Pap Smear (11/01/2020) Pap smear Performed Historical Provider HEALTH MAINTENANCE Final Result * Colonoscopy (11/23/2018) Colonoscopy Performed Historical Provider HEALTH MAINTENANCE Edited Result - Final from Last 3 Months or Most Recently Relevant to Health Maintenance Insurance [facility] C3 Care Teams Dry Pan Charger Relationship Specialty Start Date End Date Kristy Wilder MD [address] [place] [phone] PCP - General Internal Medicine 12/26/22
--- OUTSIDE RECORDS SUMMARY | 2024-10-14 14:13 | XMS_ITS | Encounter Summary ---
Author Organization [employer] Address [address] [place] [address] [place] [address] Care Team Providers Care Electric Lift Truck Driver Name Role Phone Khloe Fonseca Primary Care Provider [phone] Kristy Wilder MD Primary Care Pro vider Encounter Details Date Type Department Care Team (Late st Contact Info) Description 12/09/2022 Abstract [facility] MEDICINE [address] [place] [address] Khloe Fonseca FNP [address] [place] [address] [place] [address] Social History Tobacco Use Types Packs/Day Years [...] Info) Description 10/18/2024 11:00 AM EDT Telemedicine [facility] MED & PEDS [address] [place] [address] Colette Diop, BRICE [address] [place] [address] documented as of this encounter Visit Diagnoses Not on filedocumented in this encounter Additional Health Concerns Assessment Noted Time PHQ-9 Depression Total Score: 11 022 1:16 PM EST documented as of this encounter Care Teams Electric Lift Truck Driver Relationship Specialty Start Date End Date Khloe Fonseca FNP PCP - General Family Medicine 02/05/22 12/25/22 Kristy Wilder MD [address] [place] [phone] PCP - General Internal Medicine 12/26/22 documented as of this encounter
--- OUTSIDE RECORDS SUMMARY | 2024-10-14 14:13 | XMS_ITS | Encounter Summary ---
Author Organization [employer] Address [address] [place] [address] [place] [address] Care Team Providers Care Costume Design Teacher Name Role Phone Khloe Fonseca [facility] Primary Care Provider [phone] Kristy Wilder MD Primary Care Pro vider Reason for Visit * Reason Onset Date Comments OTHER 12/24/2022 Encounter Details Date Type Department Care Team (Late Contact Info) Description 12/24/[address] [facility] MEDICINE [address] [place] [address] [phone] Khloe Fonseca FNP [address] [place] [address] Dept [place] [address] OTHER Social History Tobacco Use Types Packs/Day [...] To clarify, please contact pt sister at [phone] documented in this encounter Plan of Treatment Upcoming Encounters Date Type Department Care Team (Late Contact Info) Description 10/18/2024 11:00 AM EDT Telemedicine [facility] MED & PEDS [address] [place] [address] Colette Diop, BRIEC [address] [facility] [place] [address] documented as of this encounter Visit Diagnoses Not on filedocumented in this encounter Additional Health Concerns Assessment Noted Time PHQ-9 Depression Total Score: 11 022 1:16 PM EST documented as of this encounter Care Teams Costume Design Teacher Relationship Specialty Start Date End Date Khloe Fonseca FNP PCP - General Family Medicine 02/05/22 12/25/22 Kristy Wilder MD [address] [place] [address] PCP - General Internal Medicine 12/26/22 documented as of this encounter
--- OUTSIDE RECORDS SUMMARY | 2024-10-14 14:14 | XMS_ITS | Clinical Summary ---
Author Organization [facility] Address [address] [place] [address] Care Team Providers Care Director Client Name Role Phone Bryce Terrietaijuice Partha Primary Care Provider [phone] Allergies Active Allergy Reactions Criticality Noted Date [...] series) 2042 Medical Devices Implanted Type Area Statistical Technician Device Identifier Shelf Expiration Date Model / Serial / Lot System Closure Suture Medicated Perclose Proglide 6fr - [id number] Implanted:Qty: 1 on 02/04/2019 at [facility] Implant [employer] [id number] 126 73-03 / / Coil Embolization Neurovascular [employer] 0.035in [id number] Tornado - [id number] Implanted:Qty: 1 on 02/04/2019 at [facility] Implant [employer] [id number] 10/11/19 23 [id number] / / [id number] Coil Embolization Neurovascular [employer] 0.035in 4qfu6xh Tornado - [id number] Implanted:Qty: 1 on 02/04/2019 at [facility] Implant [employer] [id number] 08/03/19 24 [id number] / / [id number] Coil Embolization Neurovascular [employer] 0.035in 5hde4hh Tornado - [id number] Implanted:Qty: 1 on 02/04/2019 at [facility] Implant [employer] [id number] 08/03/19 24 [id number] / / [id number] Coil Embolization Neurovascular [employer] 0.035in 5cwg2ma Tornado - [id number] Implanted:Qty: 1 on 02/04/2019 at [facility] Implant [employer] [id number] 08/03/19 24 [id number] / / [id number] [place] [address] [place] [address] Care Teams Director Client Relationship Specialty Start Date End Date Davon Wu [address] [place] [phone] PCP - General Internal Medicine 09/28/18
--- OUTSIDE RECORDS SUMMARY | 2024-10-14 14:14 | XMS_ITS | Encounter Summary ---
Author Organization [employer] Address [address] [facility] [address] [place] [address] Care Team Providers Care Fiscal Services Manager Name Role Phone Kristy Wilder MD Primary Care Pro vider Reason for Visit * Reason Comments Care Coordination Encounter Details Date Type Department Care Team ([facility] st Contact Info) Description 10/11/2024 Patient Outreach [facility] MEDICINE [address] [place], [place] [phone] Kristy Wilder MD [address] [place], [place] [phone] Care Coordination Social History Tobacco Use Types Packs/Day Years [...] as of this encounter Progress Notes * Mirtha [place] - 10/11/2024 11:18 AM EDT CHW Mirtha [place], placed outbound call to patient in regards to offer services. CHW introducing herself from [facility] CM Department with CHW's name, department and direct contact number requesting call back. Will re-attempt to contact within 5 days. and address not confirmed. documented in this encounter Plan of Treatment Upcoming Encounters Date Type Department Care Team ([facility] st Contact Info) Description 10/18/2024 11:00 AM EDT Telemedicine [facility] MED & PEDS [address] [place] [address] Colette Diop RN [address] [place] [address] documented as of this encounter Visit Diagnoses Not on filedocumented in this encounter Additional Health Concerns Assessment Noted Time PHQ-9 Depression Total Score: 4 10/31/19 24 1:38 PM EDT documented as of this encounter Care Teams Fiscal Services Manager Relationship Specialty Start Date End Date Kristy Wilder MD [address] [place] [address] PCP - General Internal Medicine 12/26/22 documented as of this encounter
--- OUTSIDE RECORDS SUMMARY | 2024-10-14 14:14 | XMS_ITS | Clinical Summary ---
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 Care Cloth Hand Name Role Phone ANDREINA MENCHACA, CLARENCE Unavailable Unavailable TATI NARVAEZ, ALBERTA Unavailable Unavailable Payers Payer Name Policy Type Policy Number Effective Date Expira tion Date MEDICAID [facility] [id number] Problems Condition Name Condition Details Condition Category Status Onset Date Resolution Date Last Treatment Date Treating Clinician Comments MAJOR DEPRESSIVE DISORDER, RECURRENT, MODERATE Active 3 00:00: 00 TYPE 2 DIABETES MELLITUS WITHOUT [...] 06-25 00:00: 00 09-01 23:59 :00 No [id number] 5 mg BEDTIME 5 mg BEDTIME (route: oral) Med Classific ation: Central Nervous System Agents buspirone 7.5 mg tablet 06-25 00:00: 00 09-01 23:59 :00 No [id number] 7.5 mg 2 TIMES DAILY 7.5 mg 2 TIMES DAILY (route: oral) Med Classific ation: Central Nervous System Agents Eliquis 5 mg tablet 06-25 00:00: 00 09-01 23:59 :00 No [id number] 5 mg 2 TIMES DAILY 5 mg 2 TIMES DAILY (route: oral) Med Classific ation: Hematolog ical Agents famotidine 20 mg tablet 06-25 00:00: 00 09-01 23:59 :00 No [id number] 20 mg 2 TIMES DAILY 20 mg 2 TIMES DAILY (route: oral) Med Classific ation: Gastroint estinal Therapy Agents levothyroxi ne 112 mcg tablet 06-25 00:00: 00 09-01 23:59 :00 No [id number] 112 mcg EVERY AM 112 mcg EVERY AM (route: oral) Med Classific ation: Endocrine losartan 25 mg tablet 06-25 00:00: 00 09-01 23:59 :00 No [id number] 25 mg NOON 25 mg NOON (route: oral) Med Classific ation: Cardiovas cular Therapy Agents metformin 500 mg tablet 06-25 00:00: 00 09-01 23:59 :00 No [id number] 500 mg DIRECTED 500 mg DIRECTED (route: oral) Med Classific ation: Endocrine mirtazapine 7.5 mg tablet 06-25 00:00: 00 09-01 23:59 :00 No [id number] 7.5 mg BEDTIME 7.5 mg BEDTIME (route: oral) Med Classific ation: Central Nervous System Agents Narcan 4 mg/actuatio n nasal spray 06-25 00:00: 00 09-01 23:59 :00 No [id number] 2 spray DIRECTED 2 spray DIRECTED (route: nasal) Med Classific ation: Antidotes and other Reversal Agents ondansetron 4 mg disintegrat ing tablet 06-25 00:00: 00 09-01 23:59 :00 No [id number] 4 mg EVERY 8 HOURS 4 mg EVERY 8 HOURS (route: oral) Med Classific ation: Gastroint estinal Therapy Agents oxycodone 5 mg tablet 06-25 00:00: 00 09-01 23:59 :00 No [id number] 5 mg EVERY 12 HOURS 5 mg EVERY 12 HOURS (route: oral) Med Classific ation: Analgesic , Anti-infl ammatory or Antipyret ic propranolol 10 mg tablet 06-25 00:00: 00 09-01 23:59 :00 No [id number] 17 mg 2 TIMES DAILY 17 mg 2 TIMES DAILY (route: oral) Med Classific ation: Cardiovas cular Therapy Agents sertraline 100 mg tablet 06-25 00:00: 00 09-01 23:59 :00 No [id number] 100 mg NOON 100 mg NOON (route: oral) Med Classific ation: Central Nervous System Agents buspirone 10 mg tablet 09-05 00:00: 00 Yes [id number] 1 tablet 2 TIMES DAILY 1 tablet 2 TIMES DAILY (route: oral) Med Classific ation: Central Nervous System Agents Colace 100 mg capsule 09-04 00:00: 00 Yes [id number] 1 capsule BEDTIME 1 capsule BEDTIME (route: oral) Med Classific ation: Gastroint estinal Therapy Agents Eliquis 5 mg tablet 09-04 00:00: 00 Yes [id number] 1 tablet 2 TIMES DAILY 1 tablet 2 TIMES DAILY (route: oral) Med Classific ation: Hematolog ical Agents levothyroxi ne 112 mcg tablet 09-04 00:00: 00 Yes [id number] 1 tablet EVERY AM 1 tablet EVERY AM (route: oral) Med Classific ation: Endocrine losartan 25 mg tablet 09-04 00:00: 00 Yes [id number] 1 tablet NOON 1 tablet NOON (route: oral) Med Classific ation: Cardiovas cular Therapy Agents metformin 500 mg tablet 09-04 00:00: 00 Yes [id number] 1 tablet EVERY AM 1 tablet EVERY AM (route: oral) Med Classific ation: Endocrine metformin 500 mg tablet 09-05 00:00: 00 Yes [id number] 2 tablet EVERY PM 2 tablet EVERY PM (route: oral) Med Classific ation: Endocrine Pepcid 20 mg tablet 09-04 00:00: 00 Yes [id number] 1 tablet 2 TIMES DAILY 1 tablet 2 TIMES DAILY (route: oral) Med Classific ation: Gastroint estinal Therapy Agents propranolol 10 mg tablet 09-04 00:00: 00 Yes [id number] 1 tablet 2 TIMES DAILY 1 tablet 2 TIMES DAILY (route: oral) Med Classific ation: Cardiovas cular Therapy Agents sertraline 100 mg tablet 09-04 00:00: 00 Yes [id number] 1 tablet NOON 1 tablet NOON (route: oral) Med Classific ation: Central Nervous System Agents mirtazapine 45 mg tablet 09-04 00:00: 00 Yes [id number] 1 tablet BEDTIME 1 tablet BEDTIME (route: oral) Med Classific ation: Central Nervous System Agents hydroxyzine HCl 10 mg tablet 09-04 00:00: 00 Yes [id number] 1-2 tablet 2 TIMES DAILY 1-2 tablet 2 TIMES DAILY (route: oral) Med Classific ation: Central Nervous System Agents Vital Signs Vital Name Observation Time Observation Value Commen ts Temperature 2024-10-06 12:37:00.000 97.5 [degF] Temperature 2024-10-04 18:20:00.000 97.7 [degF] Temperature 2024-09-27 12:12:00.000 97.3 [degF] Temperature 2024-09-23 10:47:00.000 96.6 [degF] Temperature 2024-09-15 18:09:00.000 97.3 [degF] Temperature 2024-09-13 17:39:00.000 97.3 [degF] Temperature 2024-09-10 17:26:00.000 97.1 [degF] Temperature 2024-09-08 17:13:00.000 98.2 [degF] Temperature 2024-09-06 17:52:00.000 96.7 [degF] Temperature 2024-09-04 13:45:00.000 98.4 [degF] Height 2024-09-04 22:42:35.000 65 [in_us] Pulse 2024-10-06 12:37:00.000 68 /min Pulse 2024-10-04 18:20:00.000 88 /min Pulse 2024-09-27 12:12:00.000 65 /min Pulse 2024-09-23 10:47:00.000 72 /min Pulse 2024-09-15 18:09:00.000 77 /min Pulse 2024-09-13 17:39:00.000 72 /min Pulse 2024-09-10 17:26:00.000 90 /min Pulse 2024-09-08 17:13:00.000 71 /min Pulse 2024-09-06 17:52:00.000 72 /min Pulse 2024-09-04 13:45:00.000 64 /min O2 Saturation (%) 2024-09-04 13:45:00.000 100 % Respirations 2024-10-06 12:37:00.000 16 /min Respirations 2024-10-04 18:20:00.000 16 /min Respirations 2024-09-27 12:12:00.000 16 /min Respirations 2024-09-23 10:47:00.000 16 /min Respirations 2024-09-15 18:09:00.000 16 /min Respirations 2024-09-13 17:39:00.000 16 /min Respirations 2024-09-10 17:26:00.000 16 /min Respirations 2024-09-08 17:13:00.000 16 /min Respirations 2024-09-06 17:52:00.000 16 /min Respirations 2024-09-04 13:45:00.000 16 /min Systolic Blood Pressure 2024-10-06 12:37:00.000 144 mm [Hg] Systolic Blood Pressure 2024-10-04 18:20:00.000 144 mm [Hg] Systolic Blood Pressure 2024-09-27 12:12:00.000 148 mm [Hg] Systolic Blood Pressure 2024-09-23 10:47:00.000 149 mm [Hg] Systolic Blood Pressure 2024-09-15 18:09:00.000 159 mm [Hg] Systolic Blood Pressure 2024-09-13 17:39:00.000 157 mm [Hg] Systolic Blood Pressure 2024-09-10 17:26:00.000 145 mm [Hg] Systolic Blood Pressure 2024-09-08 17:13:00.000 150 mm [Hg] Systolic Blood Pressure 2024-09-06 17:52:00.000 152 mm [Hg] Systolic Blood Pressure 2024-09-04 13:45:00.000 146 mm [Hg] Diastolic Blood Pressure 2024-10-06 12:37:00.000 85 mm [Hg] Diastolic Blood Pressure 2024-10-04 18:20:00.000 82 mm [Hg] Diastolic Blood Pressure 2024-09-27 12:12:00.000 80 mm [Hg] Diastolic Blood Pressure 2024-09-23 10:47:00.000 88 mm [Hg] Diastolic Blood Pressure 2024-09-15 18:09:00.000 95 mm [Hg] Diastolic Blood Pressure 2024-09-13 17:39:00.000 [...] AWARENESS FOR SAFETY AND WILL NOTIFY CLINICAL HOSPITAL PRODUCT SPECIALIST AND PHYSICIAN/PROVIDER WITH ANY CHANGE IN CONDITION. [code = SKILLED NURSE WILL MAINTAIN SITUATIONAL AWARENESS FOR SAFETY AND WILL NOTIFY CLINICAL HOSPITAL PRODUCT SPECIALIST AND PHYSICIAN/PROVIDER WITH ANY CHANGE IN CONDITION.] [...] CARE WILL BE ESTABLISHED THAT MEETS PATIENT'S FPC NEEDS AND INCLUDES PATIENT GOAL FOR HOME [...] End Date/Time Encounter Type Admission Type Attending [facility] Care Department Encounter ID Discharge Date Discharge Status Discharge Condition Discharge Reason Percent Goals Met 2024-09-04 00:00:00 2024-11-02 00:00:00 Outpatient ALBERTA HERNANDEZ [facility] [id number] 8.57
--- OUTSIDE RECORDS SUMMARY | 2024-10-14 14:14 | XMS_ITS | Referral Summary ---
Author Organization [facility] Address [address] [place] [address] Care Team Providers Care Digital Account Executive Name Role Phone Bryce Rufustaijuice Partha Primary Care Provider [phone] Allergies Active Allergy Reactions Criticality Noted Date Comments Other Rash 02/04/2019 Contax, medication for [place] Medications buPROPion XL (WELLBUTRIN XL) 150 mg [...] on file Medical Devices Implanted Type Area Brine Supervisor Device Identifier Shelf Expiration Date Model / Serial / Lot System Closure Suture Medicated Perclose Proglide 6fr - [id number] Implanted:Qty: 1 on 02/04/2019 at [facility] Implant [employer] [id number] 73-03 / / Coil Embolization Neurovascular [place] 0.035in [id number] Tornado - [id number] Implanted:Qty: 1 on 02/04/2019 at [facility] Implant [employer] [id number] 10/11/19 23 [id number] / / [id number] Coil Embolization Neurovascular [place] 0.035in [id number] Tornado - [id number] Implanted:Qty: 1 on 02/04/2019 at [facility] Implant [employer] [id number] 08/03/19 24 [id number] / / [id number] Coil Embolization Neurovascular [place] 0.035in [id number] Tornado - [id number] Implanted:Qty: 1 on 02/04/2019 at [facility] Implant [employer] [id number] 08/03/19 [id number] / / [id number] Coil Embolization Neurovascular [place] 0.035in [id number] Justin - [id number] Implanted:Qty: 1 on 02/04/2019 at [facility] Implant [employer] [id number] 08/03/19 [id number] / / [id number] [place] [address] [place] [address] Care Teams Digital Account Executive Relationship Specialty Start Date End Date Davon Wu [address] [place] [address] PCP - General Internal Medicine 09/28/18
--- OUTSIDE RECORDS SUMMARY | 2024-10-14 14:14 | XMS_ITS | Encounter Summary ---
Author Organization [employer] Address [address] [facility] [address] [place] [address] Care Team Providers Care School Age Program Associate Name Role Phone Kristy Wilder MD Primary Care Pro vider Reason for Visit * Reason Comments Care Coordination [facility] val[facility] chart review Encounter Details Date Type Department Care Team (Latest Contact Info) Description 10/11/2024 Patient Outreach [facility] MEDICINE [address] [place] [id number] Kristy Wilder MD [address] [place] [address] Care Coordination (C3 STEPH Espinosa chart review) Social History Tobacco Use Types [...] of this encounter Progress Notes * Mirtha Espinosa - 10/11/2024 9:42 AM EDT ADT- [facility] ED 10/08/24. Please outreach pt for enrollment. CHW Mirtha Espinosa reviewed chart review completed by ADELIA Melara RN documented in this encounter Plan of Treatment Upcoming Encounters Date Type Department Care Team (Late st Contact Info) Description 10/18/2024 11:00 AM EDT Telemedicine [facility] MED & PEDS [address] [place] [address] Colette Diop, RN [address] [place] [address] documented as of this encounter Visit Diagnoses Not on filedocumented in this encounter Additional Health Concerns Assessment Noted Time PHQ-9 Depression Total Score: 4 10/31/19 24 1:38 PM EDT documented as of this encounter Care Teams School Age Program Associate Relationship Specialty Start Date End Date Kristy Wilder MD [address] [place] [address] PCP - General Internal Medicine 12/26/22 documented as of this encounter
--- OUTSIDE RECORDS SUMMARY | 2024-10-14 14:14 | XMS_ITS | Encounter Summary ---
Author Organization [employer] Address [address] [facility] [address] [place] [address] Care Team Providers Care Senior Search Marketing Analyst Name Role Phone Kristy Wilder MD Primary Care Pro vider Reason for Visit * Reason Comments Med Refill Encounter Details Date Type Department Care Team ([facility] st Contact Info) Description 10/12/2024 Refill [facility]S [address] [place], [place] [phone] Chio Aguilar MD [address] [place] [address] Social History Tobacco Use Types Packs/Day Years [...] Upcoming Encounters Date Type Department Care Team ([facility] st Contact Info) Description 10/18/2024 11:00 AM EDT Telemedicine [facility] MED & PEDS [address] [place] [address] Colette Diop, BRICE [address] [place] [address] documented as of this encounter Visit Diagnoses Not on filedocumented in this encounter Additional Health Concerns Assessment Noted Time PHQ-9 Depression Total Score: 4 10/31/19 24 1:38 PM EDT documented as of this encounter Care Teams Senior Search Marketing Analyst Relationship Specialty Start Date End Date Kristy Wilder MD [address] [place] [address] PCP - General Internal Medicine 12/26/22 documented as of this encounter
--- OUTSIDE RECORDS SUMMARY | 2024-10-14 14:14 | XMS_ITS | Clinical Summary ---
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 Care Market Development Manager Name Role Phone ANDREINA MENCHACA, CLARENCE Unavailable Unavailable TATI NARVAEZ, ALBERTA Unavailable Unavailable Payers Payer Name Policy Type Policy Number Effective Date Expira tion Date MEDICAID [facility] [id number] Problems Condition Name Condition Details Condition Category [...] 06-25 00:00: 00 09-01 23:59 :00 No [id number] 5 mg BEDTIME 5 mg BEDTIME (route: oral) Med Classific ation: Central Nervous System Agents buspirone 7.5 mg tablet 06-25 00:00: 00 09-01 23:59 :00 No [id number] 7.5 mg 2 TIMES DAILY 7.5 mg 2 TIMES DAILY (route: oral) Med Classific ation: Central Nervous System Agents Eliquis 5 mg tablet 06-25 00:00: 00 09-01 23:59 :00 No [id number] 5 mg 2 TIMES DAILY 5 mg 2 TIMES DAILY (route: oral) Med Classific ation: Hematolog ical Agents famotidine 20 mg tablet 06-25 00:00: 00 09-01 23:59 :00 No [id number] 20 mg 2 TIMES DAILY 20 mg 2 TIMES DAILY (route: oral) Med Classific ation: Gastroint estinal Therapy Agents levothyroxi ne 112 mcg tablet 06-25 00:00: 00 09-01 23:59 :00 No [id number] 112 mcg EVERY AM 112 mcg EVERY AM (route: oral) Med Classific ation: Endocrine losartan 25 mg tablet 06-25 00:00: 00 09-01 23:59 :00 No [id number] 25 mg NOON 25 mg NOON (route: oral) Med Classific ation: Cardiovas cular Therapy Agents metformin 500 mg tablet 06-25 00:00: 00 09-01 23:59 :00 No [id number] 500 mg DIRECTED 500 mg DIRECTED (route: oral) Med Classific ation: Endocrine mirtazapine 7.5 mg tablet 06-25 00:00: 00 09-01 23:59 :00 No [id number] 7.5 mg BEDTIME 7.5 mg BEDTIME (route: oral) Med Classific ation: Central Nervous System Agents Narcan 4 mg/actuatio n nasal spray 06-25 00:00: 00 09-01 23:59 :00 No [id number] 2 spray DIRECTED 2 spray DIRECTED (route: nasal) Med Classific ation: Antidotes and other Reversal Agents ondansetron 4 mg disintegrat ing tablet 06-25 00:00: 00 09-01 23:59 :00 No [id number] 4 mg EVERY 8 HOURS 4 mg EVERY 8 HOURS (route: oral) Med Classific ation: Gastroint estinal Therapy Agents oxycodone 5 mg tablet 06-25 00:00: 00 09-01 23:59 :00 No [id number] 5 mg EVERY 12 HOURS 5 mg EVERY 12 HOURS (route: oral) Med Classific ation: Analgesic , Anti-infl ammatory or Antipyret ic propranolol 10 mg tablet 06-25 00:00: 00 09-01 23:59 :00 No [id number] 17 mg 2 TIMES DAILY 17 mg 2 TIMES DAILY (route: oral) Med Classific ation: Cardiovas cular Therapy Agents sertraline 100 mg tablet 06-25 00:00: 00 09-01 23:59 :00 No [id number] 100 mg NOON 100 mg NOON (route: oral) Med Classific ation: Central Nervous System Agents buspirone 10 mg tablet 09-05 00:00: 00 Yes [id number] 1 tablet 2 TIMES DAILY 1 tablet 2 TIMES DAILY (route: oral) Med Classific ation: Central Nervous System Agents Colace 100 mg capsule 09-04 00:00: 00 Yes [id number] 1 capsule BEDTIME 1 capsule BEDTIME (route: oral) Med Classific ation: Gastroint estinal Therapy Agents Eliquis 5 mg tablet 09-04 00:00: 00 Yes [id number] 1 tablet 2 TIMES DAILY 1 tablet 2 TIMES DAILY (route: oral) Med Classific ation: Hematolog ical Agents levothyroxi ne 112 mcg tablet 09-04 00:00: 00 Yes [id number] 1 tablet EVERY AM 1 tablet EVERY AM (route: oral) Med Classific ation: Endocrine losartan 25 mg tablet 09-04 00:00: 00 Yes [id number] 1 tablet NOON 1 tablet NOON (route: oral) Med Classific ation: Cardiovas cular Therapy Agents metformin 500 mg tablet 09-04 00:00: 00 Yes [id number] 1 tablet EVERY AM 1 tablet EVERY AM (route: oral) Med Classific ation: Endocrine metformin 500 mg tablet 09-05 00:00: 00 Yes [id number] 2 tablet EVERY PM 2 tablet EVERY PM (route: oral) Med Classific ation: Endocrine Pepcid 20 mg tablet 09-04 00:00: 00 Yes [id number] 1 tablet 2 TIMES DAILY 1 tablet 2 TIMES DAILY (route: oral) Med Classific ation: Gastroint estinal Therapy Agents propranolol 10 mg tablet 09-04 00:00: 00 Yes [id number] 1 tablet 2 TIMES DAILY 1 tablet 2 TIMES DAILY (route: oral) Med Classific ation: Cardiovas cular Therapy Agents sertraline 100 mg tablet 09-04 00:00: 00 Yes [id number] 1 tablet NOON 1 tablet NOON (route: oral) Med Classific ation: Central Nervous System Agents mirtazapine 45 mg tablet 09-04 00:00: 00 Yes [id number] 1 tablet BEDTIME 1 tablet BEDTIME (route: oral) Med Classific ation: Central Nervous System Agents hydroxyzine HCl 10 mg tablet 09-04 00:00: 00 Yes [id number] 1-2 tablet 2 TIMES DAILY 1-2 tablet [...] AWARENESS FOR SAFETY AND WILL NOTIFY CLINICAL GROUND EQUIPMENT MECHANIC AND PHYSICIAN/PROVIDER WITH ANY CHANGE IN CONDITION. [code = SKILLED NURSE WILL MAINTAIN SITUATIONAL AWARENESS FOR SAFETY AND WILL NOTIFY CLINICAL GROUND EQUIPMENT MECHANIC AND PHYSICIAN/PROVIDER WITH ANY CHANGE IN CONDITION.] [...] CARE WILL BE ESTABLISHED THAT MEETS PATIENT'S CARE HOME NEEDS AND INCLUDES PATIENT GOAL FOR HOME [...] End Date/Time Encounter Type Admission Type Attending [facility] Care Department Encounter ID Discharge Date Discharge Status Discharge Condition Discharge Reason Percent Goals Met 2024-09-04 00:00:00 2024-11-02 00:00:00 Outpatient ALBERTA HERNANDEZ [facility] [id number] 8.57
--- OUTSIDE RECORDS SUMMARY | 2024-10-14 14:14 | XMS_ITS ---
Author Organization [facility] Address [address] [place] [address] Care Team Providers Care Wood Carving Machine Operator Name Role Phone Davon Wu Primary Care Provider [phone] Active Problems Problem Noted Date Diagnosed Date [...]
== END 2024-10-14 12:58 | disposition home or self-care (01) ==
LOC: HO.MRI 12:57
PROVIDERS: PCP Student in an Organized Health Care Education/Training Program; Visit Provider Nurse Practitioner Family
DX: C64.9 Malignant neoplasm of unspecified kidney, except renal pelvis (principal)
CPT/HCPCS: 70553; A9585

== ENCOUNTER 2024-12-08 13:50 | Outpatient (REF) | payer MEDICAID, SELFPAY ==
--- NOTE | ~2024-12-08 | MM_ITS ---
EXAMINATION: MM SCREENING DIGITAL BREAST TOMOSYNTHESIS, BILATERAL CLINICAL INFORMATION: Screening. Asymptomatic. COMPARISON: Mammography: Comparison is made with available priors TECHNIQUE: Digital breast mammography with tomosynthesis is performed in both the craniocaudal and mediolateral oblique views along with computer-aided detection (CAD). FINDINGS: There are scattered areas of fibroglandular density (ACR BI-RADS breast composition Category b). There are no significant masses, abnormal calcifications, or other abnormalities. MM/MM tomosynthesis screening BI IMPRESSION: No mammographic evidence of malignancy. ASSESSMENT: BI-RADS BI-RADS 1 - Negative RECOMMENDATION: Routine annual mammography screening. 1 year F/U This examination should not preclude the clinical evaluation of a suspicious palpable abnormality. This patient's information was entered into a reminder system with a target due date for their next mammogram. Electronically signed by: Meri Benson DO 12/19/2024 09:14 PM EDT
--- OUTSIDE RECORDS SUMMARY | 2024-12-08 14:25 | XMS_ITS | Encounter Summary ---
Author Organization [facility] Address [address] [place] [address] Care Team Providers Care Ruling Machine Operator Name Role Phone Davon Wu Primary Care Provider [phone] Encounter Details Date Type Department Care Team (Late st Contact Info) Description 10/31/2020 Orders Only [facility] Xray [address] [place] [address] Winifred Winston MD [address] [place] [address] Social History Tobacco Use Types Packs/Day Years [...] on filedocumented in this encounter Care Teams Ruling Machine Operator Relationship Specialty Start Date End Date Davon Wu [address] [place] [address] PCP - General Internal Medicine 09/28/18 documented as of this encounter
--- OUTSIDE RECORDS SUMMARY | 2024-12-08 14:25 | XMS_ITS | Encounter Summary ---
Author Organization [employer] Address [address] [facility] 7t [place] [address] Care Team Providers Care Physical Education Instructor Name Role Phone Kristy Wilder MD Primary Care Pro vider Reason for Visit * Reason Comments Med Refill Encounter Details Date Type Department Care Team (Late st Contact Info) Description 05/15/2023 Refill [facility] MEDICINE [address] [place], [place] [phone] Evelina Freeman MD [address] [place], [place] [phone] Social History Tobacco Use Types Packs/Day Years [...] Care Team (Late st Contact Info) Description 12/21/2024 11:30 AM EDT Office Visit [facility] MEDICINE [address] [place] [address] Kristy Wilder MD [address] [place] [address] 12/27/2024 11:00 AM EDT Telemedicine [facility] MED & PEDS [address] [place], [place] [phone] Colette Diop RN [address] [place] [address] 01/14/2025 9:00 AM EDT Office Visit [facility] MEDICINE [address] [place] [address] Evelina Freeman MD [address] [place] [address] documented as of this encounter Visit Diagnoses Not on filedocumented in this encounter Additional Health Concerns Assessment Noted Time PHQ-9 Depression Total Score: 16 023 11:20 AM EDT documented as of this encounter Care Teams Physical Education Instructor Relationship Specialty Start Date End Date Kristy Wilder MD [address] [place] [address] PCP - General Internal Medicine 12/26/22 Evita Hanna Web Production ManagerDeck Builder 11/04/24 documented as of this encounter
--- OUTSIDE RECORDS SUMMARY | 2024-12-08 14:25 | XMS_ITS | Clinical Summary ---
Author Organization [facility] Address [address] [place] [address] Phone Care Team Providers Care Chef Head Name Role Phone Physician, No Pcp Primary Care Provider Unavaila ble Allergies Active Allergy Reactions Criticality Noted Date Comments Morphine 05/09/2024 Medications triamcinolone (KENALOG) 0.1 % cream Apply thin film to affected areas(s) four times daily. 15 g 10/08/2024 10/09/19 26 Active Active Problems No known active problems Encounters Date Type Department Care Team Description 10/08/2024 9:14 AM EDT - 10/08/2024 11:[address] [facility] Emergency [address] [place] [address] Bryson Sinha MD Adverse effect of drug, initial encounter (Primary Dx); Blistering rash Discharge Disposition: Home or Self Care from Last 3 Months Medical History Medical History Date Comments Diabetes mellitus ([facility] V24, [facility] V28) Hypertension Social History Tobacco Use Types [...] 60 10/08/2024 11:22 AM EDT Temperature 36.9 C (98.4 F) 10/08/2024 11:22 AM EDT Respiratory Rate 18 10/08/2024 11:22 AM EDT [...] mmol/L LAB CHEMISTRY METHOD 05/09/2024 2:26 PM [facility] Potassium 4.1 3.5 - 5.5 mmol/L LAB CHEMISTRY METHOD 05/09/2024 2:26 PM [facility] Chloride 107 96 - 110 mmol/L LAB CHEMISTRY METHOD 05/09/2024 2:26 PM [facility] CO2 32 21 - 32 mmol/L LAB CHEMISTRY METHOD 05/09/2024 2:26 PM [facility] Anion Gap 4 3 - 11 LAB CHEMISTRY METHOD 05/09/2024 2:26 PM [facility] Glucose 94 70 - 100 mg/dL LAB CHEMISTRY METHOD 05/09/2024 2:26 PM [facility] BUN 13 5 - 25 mg/dL LAB CHEMISTRY METHOD 05/09/2024 2:26 PM [facility] Creatinine 0.79 0.50 - 1.10 mg/dL LAB CHEMISTRY METHOD 05/09/2024 2:26 PM [facility] eGFR 87 >=60 mL/min/1. 73m2 LAB CHEMISTRY METHOD 05/09/2024 2:26 PM [facility] Comment:Calculation based on the Chronic Kidney Disease Epidemiology Collaboration (CKD-EPI) equation refit without adjustment for race. BUN/Creatinine Ratio 16.5 LAB CHEMISTRY METHOD 05/09/2024 2:26 PM [facility] Calcium 9.5 8.5 - 10.5 mg/dL LAB CHEMISTRY METHOD 05/09/2024 2:26 PM [facility] AST (SGOT) 23 10 - 42 unit/L LAB CHEMISTRY METHOD 05/09/2024 2:26 PM [facility] ALT (SGPT) 31 10 - 60 unit/L LAB CHEMISTRY METHOD 05/09/2024 2:26 PM [facility] Alkaline Phosphatase 91 42 - 121 unit/L LAB CHEMISTRY METHOD 05/09/2024 2:26 PM [facility] Total Protein 6.6 6.0 - 8.0 g/dL LAB CHEMISTRY METHOD 05/09/2024 2:26 PM [facility] Albumin 3.5 3.2 - 5.0 g/dL LAB CHEMISTRY METHOD 05/09/2024 2:26 PM [facility] Total Bilirubin 0.8 0.0 - 1.4 mg/dL LAB CHEMISTRY METHOD 05/09/2024 2:26 PM [facility] Blood Venous blood specimen / Unknown Venipuncture / Unknown 05/09/2024 1:32 PM EST 05/09/2024 1:57 PM EST us Bryson Sinha MD LAB BLOOD ORDERABLES Final Result [facility] [address] [place] [address], [place] [phone] from Last 3 Months or Most Recently Relevant to Health Maintenance Insurance [place]ICAID - [place] Care Teams Chef Head Relationship Specialty Start Date End Date Physician, No Pcp PCP - General 05/09/24
--- OUTSIDE RECORDS SUMMARY | 2024-12-31 20:00 | XMS_ITS | Clinical Summary ---
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 Care Open End Spinning Operator Name Role Phone ANDREINA MENCHACA, CLARENCE Unavailable Unavailable TATI NARVAEZ, ALBERTA Unavailable Unavailable Payers Payer Name Policy Type Policy Number Effective Date Expira tion Date MEDICAID [facility] [id number] Problems Condition Name Condition Details Condition Category [...] 06-25 00:00: 00 09-01 23:59 :00 No [id number] 5 mg BEDTIME 5 mg BEDTIME (route: oral) Med Classific ation: Central Nervous System Agents buspirone 7.5 mg tablet 06-25 00:00: 00 09-01 23:59 :00 No [id number] 7.5 mg 2 TIMES DAILY 7.5 mg 2 TIMES DAILY (route: oral) Med Classific ation: Central Nervous System Agents Eliquis 5 mg tablet 06-25 00:00: 00 09-01 23:59 :00 No [id number] 5 mg 2 TIMES DAILY 5 mg 2 TIMES DAILY (route: oral) Med Classific ation: Hematolog ical Agents famotidine 20 mg tablet 06-25 00:00: 00 09-01 23:59 :00 No [id number] 20 mg 2 TIMES DAILY 20 mg 2 TIMES DAILY (route: oral) Med Classific ation: Gastroint estinal Therapy Agents levothyroxi ne 112 mcg tablet 06-25 00:00: 00 09-01 23:59 :00 No [id number] 112 mcg EVERY AM 112 mcg EVERY AM (route: oral) Med Classific ation: Endocrine losartan 25 mg tablet 06-25 00:00: 00 09-01 23:59 :00 No [id number] 25 mg NOON 25 mg NOON (route: oral) Med Classific ation: Cardiovas cular Therapy Agents metformin 500 mg tablet 06-25 00:00: 00 09-01 23:59 :00 No [id number] 500 mg DIRECTED 500 mg DIRECTED (route: oral) Med Classific ation: Endocrine mirtazapine 7.5 mg tablet 06-25 00:00: 00 09-01 23:59 :00 No [id number] 7.5 mg BEDTIME 7.5 mg BEDTIME (route: oral) Med Classific ation: Central Nervous System Agents Narcan 4 mg/actuatio n nasal spray 06-25 00:00: 00 09-01 23:59 :00 No [id number] 2 spray DIRECTED 2 spray DIRECTED (route: nasal) Med Classific ation: Antidotes and other Reversal Agents ondansetron 4 mg disintegrat ing tablet 06-25 00:00: 00 09-01 23:59 :00 No [id number] 4 mg EVERY 8 HOURS 4 mg EVERY 8 HOURS (route: oral) Med Classific ation: Gastroint estinal Therapy Agents oxycodone 5 mg tablet 06-25 00:00: 00 09-01 23:59 :00 No [id number] 5 mg EVERY 12 HOURS 5 mg EVERY 12 HOURS (route: oral) Med Classific ation: Analgesic , Anti-infl ammatory or Antipyret ic propranolol 10 mg tablet 06-25 00:00: 00 09-01 23:59 :00 No [id number] 17 mg 2 TIMES DAILY 17 mg 2 TIMES DAILY (route: oral) Med Classific ation: Cardiovas cular Therapy Agents sertraline 100 mg tablet 06-25 00:00: 00 09-01 23:59 :00 No [id number] 100 mg NOON 100 mg NOON (route: oral) Med Classific ation: Central Nervous System Agents buspirone 10 mg tablet 09-05 00:00: 00 Yes [id number] 1 tablet 2 TIMES DAILY 1 tablet 2 TIMES DAILY (route: oral) Med Classific ation: Central Nervous System Agents Colace 100 mg capsule 09-04 00:00: 00 Yes [id number] 1 capsule BEDTIME 1 capsule BEDTIME (route: oral) Med Classific ation: Gastroint estinal Therapy Agents Eliquis 5 mg tablet 09-04 00:00: 00 Yes [id number] 1 tablet 2 TIMES DAILY 1 tablet 2 TIMES DAILY (route: oral) Med Classific ation: Hematolog ical Agents levothyroxi ne 112 mcg tablet 09-04 00:00: 00 Yes [id number] 1 tablet EVERY AM 1 tablet EVERY AM (route: oral) Med Classific ation: Endocrine losartan 25 mg tablet 09-04 00:00: 00 Yes [id number] 1 tablet NOON 1 tablet NOON (route: oral) Med Classific ation: Cardiovas cular Therapy Agents metformin 500 mg tablet 09-04 00:00: 00 Yes [id number] 1 tablet EVERY AM 1 tablet EVERY AM (route: oral) Med Classific ation: Endocrine metformin 500 mg tablet 09-05 00:00: 00 Yes [id number] 2 tablet EVERY PM 2 tablet EVERY PM (route: oral) Med Classific ation: Endocrine Pepcid 20 mg tablet 09-04 00:00: 00 Yes [id number] 1 tablet 2 TIMES DAILY 1 tablet 2 TIMES DAILY (route: oral) Med Classific ation: Gastroint estinal Therapy Agents propranolol 10 mg tablet 09-04 00:00: 00 Yes [id number] 1 tablet 2 TIMES DAILY 1 tablet 2 TIMES DAILY (route: oral) Med Classific ation: Cardiovas cular Therapy Agents sertraline 100 mg tablet 09-04 00:00: 00 Yes [id number] 1 tablet NOON 1 tablet NOON (route: oral) Med Classific ation: Central Nervous System Agents mirtazapine 45 mg tablet 09-04 00:00: 00 Yes [id number] 1 tablet BEDTIME 1 tablet BEDTIME (route: oral) Med Classific ation: Central Nervous System Agents hydroxyzine HCl 10 mg tablet 09-04 00:00: 00 Yes [id number] 1-2 tablet 2 TIMES DAILY 1-2 tablet 2 TIMES DAILY (route: oral) Med Classific ation: Central Nervous System Agents Vital Signs Vital Name Observation Time Observation Value Commen ts Temperature 2024-12-08 10:53:00.000 97.1 [degF] Temperature 2024-12-06 14:32:00.000 97.1 [degF] Temperature 2024-12-01 19:10:00.000 97.1 [degF] Temperature 2024-11-29 15:33:00.000 97.5 [degF] Temperature 2024-11-26 17:26:00.000 97.2 [degF] Temperature 2024-11-24 18:25:00.000 97.4 [degF] Temperature 2024-11-22 16:40:00.000 96.9 [degF] Temperature 2024-11-15 17:15:00.000 97.6 [degF] Temperature 2024-11-10 14:44:00.000 97.8 [degF] Temperature 2024-11-05 14:31:00.000 97.6 [degF] Pulse 2024-12-08 10:53:00.000 70 /min Pulse 2024-12-06 14:32:00.000 72 /min Pulse 2024-12-01 19:10:00.000 74 /min Pulse 2024-11-29 15:33:00.000 75 /min Pulse 2024-11-26 17:26:00.000 72 /min Pulse 2024-11-24 18:25:00.000 80 /min Pulse 2024-11-22 16:40:00.000 68 /min Pulse 2024-11-15 17:15:00.000 72 /min Pulse 2024-11-10 14:44:00.000 76 /min Pulse 2024-11-05 14:31:00.000 68 /min Respirations 2024-12-08 10:53:00.000 16 /min Respirations 2024-12-06 14:32:00.000 16 /min Respirations 2024-12-01 19:10:00.000 16 /min Respirations 2024-11-29 15:33:00.000 16 /min Respirations 2024-11-26 17:26:00.000 16 /min Respirations 2024-11-24 18:25:00.000 16 /min Respirations 2024-11-22 16:40:00.000 16 /min Respirations 2024-11-15 17:15:00.000 16 /min Respirations 2024-11-10 14:44:00.000 16 /min Respirations 2024-11-05 14:31:00.000 16 /min Systolic Blood Pressure 2024-12-08 10:53:00.000 132 mm [...] 14:31:00.000 132 mm [Hg] Diastolic Blood Pressure 2024-12-08 10:53:00.000 [...] AWARENESS FOR SAFETY AND WILL NOTIFY CLINICAL COLLARETTE SEPARATOR AND PHYSICIAN/PROVIDER WITH ANY CHANGE IN CONDITION. [code = SKILLED NURSE WILL MAINTAIN SITUATIONAL AWARENESS FOR SAFETY AND WILL NOTIFY CLINICAL COLLARETTE SEPARATOR AND PHYSICIAN/PROVIDER WITH ANY CHANGE IN CONDITION.] Goal 2024-10-29 Patient Goal - TO SLEEP [...] End Date/Time Encounter Type Admission Type Attending [facility] Care Facility Care Department Encounter ID Discharge Date Discharge Status Discharge Condition Discharge Reason Percent Goals Met 2024-11-03 00:00:00 2025-01-01 00:00:00 Outpatient RECERTIFIC ATION ALBERTA DUFFY [facility] [id number] .00
== END 2024-12-08 13:51 | disposition home or self-care (01) ==
LOC: HO.MAMMO 13:50
PROVIDERS: PCP Student in an Organized Health Care Education/Training Program; Visit Provider Student in an Organized Health Care Education/Training Program
DX: Z12.31 Encounter for screening mammogram for malignant neoplasm of breast (principal)
CPT/HCPCS: 77063; 77067

== ENCOUNTER → 2024-12-08 15:00 | Outpatient (BNV) | payer MEDICAID, SELFPAY | PROVIDERS: PCP Student in an Organized Health Care Education/Training Program; Visit Provider Internal Medicine | DX: Z12.31 Encounter for screening mammogram for malignant neoplasm of breast (principal) | CPT/HCPCS: 77063; 77067 ==

== ENCOUNTER 2024-12-22 09:48 | Outpatient (REF) | payer MEDICAID, SELFPAY ==
--- OUTSIDE RECORDS SUMMARY | 2024-12-22 10:23 | XMS_ITS | Encounter Summary ---
Author Organization [facility] Address [address] [place] [address] Care Team Providers Care Billet Checker Name Role Phone Davon Wu Primary Care Provider [phone] Encounter Details Date Type Department Care Team (Late st Contact Info) Description 10/31/2020 Orders Only [facility] Xray [address] [place] [address] Winifred Winston MD [address] [place] [address] Social History Tobacco Use Types Packs/Day Years [...] on filedocumented in this encounter Care Teams Billet Checker Relationship Specialty Start Date End Date Davon Wu [address] [place] [address] PCP - General Internal Medicine 09/28/18 documented as of this encounter
--- OUTSIDE RECORDS SUMMARY | 2024-12-22 10:23 | XMS_ITS | Encounter Summary ---
Author Organization [employer] Address [address] [facility] 7t [place] [address] Care Team Providers Care Administrative Hearing Officer Name Role Phone Kristy Wilder MD Primary Care Pro vider Reason for Visit * Reason Comments Med Refill Encounter Details Date Type Department Care Team (Late st Contact Info) Description 05/15/2023 Refill [facility] MEDICINE [address] [place], [place] [phone] Evelina Freeman MD [address] [place], [place] [phone] Social History Tobacco Use Types Packs/Day Years [...] Care Team (Late st Contact Info) Description 12/27/2024 11:00 AM EDT Telemedicine [facility] CHC MED & PEDS [address] [place] [address] Colette Diop, BRICE [address] [place] [address] 01/14/2025 9:00 AM EDT Office Visit [facility] MEDICINE [address] [place] [address] Evelina Freeman MD [address] [place] [address] documented as of this encounter Visit Diagnoses Not on filedocumented in this encounter Additional Health Concerns Assessment Noted Time PHQ-9 Depression Total Score: 16 023 11:20 AM EDT documented as of this encounter Care Teams Administrative Hearing Officer Relationship Specialty Start Date End Date Kristy Wilder MD [address] [place] [address] PCP - General Internal Medicine 12/26/22 Evita Hanna Stage Settings PainterCoordinate Measuring Equipment Operator 11/04/24 documented as of this encounter
--- OUTSIDE RECORDS SUMMARY | 2024-12-22 10:23 | XMS_ITS | Clinical Summary ---
Author Organization [facility] Address [address] [place] [address] Phone Care Team Providers Care Party Plan Sales Agent Name Role Phone Physician, No Pcp Primary [...] EDT - 10/08/2024 11:37 AM EDT Emergency [facility] Emergency [address] [place] [address] Brysno Sinha MD Adverse effect of drug, initial encounter (Primary Dx); Blistering rash Discharge Disposition: Home or Self Care from Last 3 Months Medical History Medical History Date Comments Diabetes mellitus ([facility] V24, [facility] V28) Hypertension Social History Tobacco Use Types [...] 01/06/2024 Depression Screening 10/30/2024 10/31/2023 Influenza Vaccine (#1) 2025 , 05/14/2022, 05/27/2021 Diabetes: Annual Retina Eye Exam [...] Years Completed 03/11/2023, 04/09/2019 HIV Screening Completed 07/23/2023 [...] [facility] Comment:Calculation based on the Chronic Kidney [...] Sinha MD LAB BLOOD ORDERABLES Final Result [facility] [address] [place] [address], from Last 3 Months or Most Recently Relevant to Health Maintenance Insurance MEDICAID - [place] Care Teams Party Plan Sales Agent Relationship Specialty Start Date End Date Physician, No Pcp PCP - General 05/09/24
[2024-12-22 11:16] LABS: Hematocrit 39.3 % (37.0-47.0); Hemoglobin 13.6 g/dl (12.0-16.0); Mean Corpuscular HGB Conc 34.6 g/dl (31.0-35.0); Mean Corpuscular Hemoglobin 32.0 pg (27.0-33.0); Mean Corpuscular Volume 92.5 fL (80.0-98.0); NRBC Abs Auto 0.000 X10*3/uL (0.0-0.012); NRBC Pct Auto 0.0 /100WBC (0.0-0.2); Platelet Count 203 X10*3/uL (160-400); Red Blood Count 4.25 X10*6/uL (4.20-5.50); White Blood Count 4.5 X10*3/uL (4.8-10.8)
[2024-12-22 11:23] LABS: Hemoglobin A1C 178.7365 umol/L; Total Hemoglobin (HGBA1C) 3609.4968 umol/L
[2024-12-22 11:56] LABS: Microalbum/Creatinine Ratio Ur 8.9 ug/mg cr (<30)
[2024-12-22 12:05] LABS: Alanine Aminotransferase 73 U/L (0-31); Albumin Level 4.6 g/dL (3.5-5.0); Alkaline Phosphatase 80 U/L (39-117); Anion Gap 11 (12-20); Aspartate Amino Transferase 64 U/L (5-31); Blood Urea Nitrogen 13 mg/dL (9-16); Calcium 9.5 mg/dL (8.4-10.2); Carbon Dioxide 31 mmol/L (22-29); Chloride 103 mmol/L (96-108); Cholesterol 277 mg/dL (<200); Estimated Glomerular Filt Rate 45; Free T4 (Free Thyroxine) 0.51 ng/dL (0.71-1.85); HDL Cholesterol 49 mg/dL (>40); Potassium 4.0 mmol/L (3.3-5.1); Sodium 141 mmol/L (135-145); Thyroid Stimulating Hormone 74.78 uIU/mL (0.32-4.0); Total Protein 7.5 g/dL (6.5-8.0); Triglycerides 100 mg/dL (<150)
[2024-12-22 12:12] LABS: HBsAGNum1 0.33 S/CO (0.00-0.99); HIV Num 1 0.05 S/CO (0.00-0.99); Hepatitis B Surface Antigen Negative (Negative); Syphilis Screen Nonreactive (Nonreactive); ~HepC Num1 0.08 S/CO (0.00-0.79); ~Hepatitis C Antibody Nonreactive (Nonreactive)
[2024-12-22 12:49] LABS: Folate 14.5 ng/mL (> or = 4.0); Vitamin B12 362 pg/mL (200-900)
[2024-12-22 13:01] LABS: CT PCR Urine NOT DETECTED (Not Detect.); NG PCR Urine NOT DETECTED (Not Detect.)
== END 2024-12-22 09:49 | disposition home or self-care (01) ==
LOC: HO.HHCL 09:48
PROVIDERS: PCP Student in an Organized Health Care Education/Training Program; Visit Provider Student in an Organized Health Care Education/Training Program
DX: Z00.00 Encounter for general adult medical examination without abnormal findings (principal)
CPT/HCPCS: 36415; 80053; 80061; 82043; 82306; 82570; 82607; 82746; 83036; 84439; 84443; 85027; 86780; 86803; 87340; 87389; 87491; 87591

== ENCOUNTER 2025-01-05 13:47 | Outpatient (REF) | payer MEDICAID, SELFPAY ==
--- OUTSIDE RECORDS SUMMARY | 2024-12-31 20:00 | XMS_ITS | Clinical Summary ---
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 Care Retirement Manager Name Role Phone ANDREINA MENCHACA, CLARENCE Unavailable Unavailable TATI NARVAEZ, ALBERTA Unavailable Unavailable Payers Payer Name Policy Type Policy Number Effective Date Expira tion Date MEDICAID [facility] [id number] Problems Condition Name Condition Details Condition Category [...] 06-25 00:00: 00 09-01 23:59 :00 No [id number] 5 mg BEDTIME 5 mg BEDTIME (route: oral) Med Classific ation: Central Nervous System Agents buspirone 7.5 mg tablet 06-25 00:00: 00 09-01 23:59 :00 No [id number] 7.5 mg 2 TIMES DAILY 7.5 mg 2 TIMES DAILY (route: oral) Med Classific ation: Central Nervous System Agents Eliquis 5 mg tablet 06-25 00:00: 00 09-01 23:59 :00 No [id number] 5 mg 2 TIMES DAILY 5 mg 2 TIMES DAILY (route: oral) Med Classific ation: Hematolog ical Agents famotidine 20 mg tablet 06-25 00:00: 00 09-01 23:59 :00 No [id number] 20 mg 2 TIMES DAILY 20 mg 2 TIMES DAILY (route: oral) Med Classific ation: Gastroint estinal Therapy Agents levothyroxi ne 112 mcg tablet 06-25 00:00: 00 09-01 23:59 :00 No [id number] 112 mcg EVERY AM 112 mcg EVERY AM (route: oral) Med Classific ation: Endocrine losartan 25 mg tablet 06-25 00:00: 00 09-01 23:59 :00 No [id number] 25 mg NOON 25 mg NOON (route: oral) Med Classific ation: Cardiovas cular Therapy Agents metformin 500 mg tablet 06-25 00:00: 00 09-01 23:59 :00 No [id number] 500 mg DIRECTED 500 mg DIRECTED (route: oral) Med Classific ation: Endocrine mirtazapine 7.5 mg tablet 06-25 00:00: 00 09-01 23:59 :00 No [id number] 7.5 mg BEDTIME 7.5 mg BEDTIME (route: oral) Med Classific ation: Central Nervous System Agents Narcan 4 mg/actuatio n nasal spray 06-25 00:00: 00 09-01 23:59 :00 No [id number] 2 spray DIRECTED 2 spray DIRECTED (route: nasal) Med Classific ation: Antidotes and other Reversal Agents ondansetron 4 mg disintegrat ing tablet 06-25 00:00: 00 09-01 23:59 :00 No [id number] 4 mg EVERY 8 HOURS 4 mg EVERY 8 HOURS (route: oral) Med Classific ation: Gastroint estinal Therapy Agents oxycodone 5 mg tablet 06-25 00:00: 00 09-01 23:59 :00 No [id number] 5 mg EVERY 12 HOURS 5 mg EVERY 12 HOURS (route: oral) Med Classific ation: Analgesic , Anti-infl ammatory or Antipyret ic propranolol 10 mg tablet 06-25 00:00: 00 09-01 23:59 :00 No [id number] 17 mg 2 TIMES DAILY 17 mg 2 TIMES DAILY (route: oral) Med Classific ation: Cardiovas cular Therapy Agents sertraline 100 mg tablet 06-25 00:00: 00 09-01 23:59 :00 No [id number] 100 mg NOON 100 mg NOON (route: oral) Med Classific ation: Central Nervous System Agents buspirone 10 mg tablet 09-05 00:00: 00 Yes [id number] 1 tablet 2 TIMES DAILY 1 tablet 2 TIMES DAILY (route: oral) Med Classific ation: Central Nervous System Agents Colace 100 mg capsule 09-04 00:00: 00 Yes [id number] 1 capsule BEDTIME 1 capsule BEDTIME (route: oral) Med Classific ation: Gastroint estinal Therapy Agents Eliquis 5 mg tablet 09-04 00:00: 00 Yes [id number] 1 tablet 2 TIMES DAILY 1 tablet 2 TIMES DAILY (route: oral) Med Classific ation: Hematolog ical Agents levothyroxi ne 112 mcg tablet 09-04 00:00: 00 Yes [id number] 1 tablet EVERY AM 1 tablet EVERY AM (route: oral) Med Classific ation: Endocrine losartan 25 mg tablet 09-04 00:00: 00 Yes [id number] 1 tablet NOON 1 tablet NOON (route: oral) Med Classific ation: Cardiovas cular Therapy Agents metformin 500 mg tablet 09-04 00:00: 00 Yes [id number] 1 tablet EVERY AM 1 tablet EVERY AM (route: oral) Med Classific ation: Endocrine metformin 500 mg tablet 09-05 00:00: 00 Yes [id number] 2 tablet EVERY PM 2 tablet EVERY PM (route: oral) Med Classific ation: Endocrine Pepcid 20 mg tablet 09-04 00:00: 00 Yes [id number] 1 tablet 2 TIMES DAILY 1 tablet 2 TIMES DAILY (route: oral) Med Classific ation: Gastroint estinal Therapy Agents propranolol 10 mg tablet 09-04 00:00: 00 Yes [id number] 1 tablet 2 TIMES DAILY 1 tablet 2 TIMES DAILY (route: oral) Med Classific ation: Cardiovas cular Therapy Agents sertraline 100 mg tablet 09-04 00:00: 00 Yes [id number] 1 tablet NOON 1 tablet NOON (route: oral) Med Classific ation: Central Nervous System Agents mirtazapine 45 mg tablet 09-04 00:00: 00 Yes [id number] 1 tablet BEDTIME 1 tablet BEDTIME (route: oral) Med Classific ation: Central Nervous System Agents hydroxyzine HCl 10 mg tablet 09-04 00:00: 00 Yes [id number] 1-2 tablet 2 TIMES DAILY 1-2 tablet 2 TIMES DAILY (route: oral) Med Classific ation: Central Nervous System Agents Vital Signs Vital Name Observation Time Observation Value Commen ts Temperature 2024-12-31 15:24:00.000 96.9 [degF] Temperature 2024-12-23 14:09:00.000 97.5 [degF] Temperature 2024-12-22 11:00:00.000 97.4 [degF] Temperature 2024-12-15 15:35:00.000 96.8 [degF] Temperature 2024-12-13 14:10:00.000 97.8 [degF] Temperature 2024-12-08 10:53:00.000 97.1 [degF] Temperature 2024-12-06 14:32:00.000 97.1 [degF] Temperature 2024-12-01 19:10:00.000 97.1 [degF] Temperature 2024-11-29 15:33:00.000 97.5 [degF] Temperature 2024-11-26 17:26:00.000 97.2 [degF] Temperature 2024-11-24 18:25:00.000 97.4 [degF] Temperature 2024-11-22 16:40:00.000 96.9 [degF] Temperature 2024-11-15 17:15:00.000 97.6 [degF] Temperature 2024-11-10 14:44:00.000 97.8 [degF] Temperature 2024-11-05 14:31:00.000 97.6 [degF] Pulse 2024-12-31 15:24:00.000 68 /min Pulse 2024-12-23 14:09:00.000 96 /min Pulse 2024-12-22 11:00:00.000 84 /min Pulse 2024-12-15 15:35:00.000 72 /min Pulse 2024-12-13 14:10:00.000 76 /min Pulse 2024-12-08 10:53:00.000 70 /min Pulse 2024-12-06 14:32:00.000 72 /min Pulse 2024-12-01 19:10:00.000 74 /min Pulse 2024-11-29 15:33:00.000 75 /min Pulse 2024-11-26 17:26:00.000 72 /min Pulse 2024-11-24 18:25:00.000 80 /min Pulse 2024-11-22 16:40:00.000 68 /min Pulse 2024-11-15 17:15:00.000 72 /min Pulse 2024-11-10 14:44:00.000 76 /min Pulse 2024-11-05 14:31:00.000 68 /min Respirations 2024-12-31 15:24:00.000 16 /min Respirations 2024-12-23 14:09:00.000 16 /min Respirations 2024-12-22 11:00:00.000 16 /min Respirations 2024-12-15 15:35:00.000 16 /min Respirations 2024-12-13 14:10:00.000 16 /min Respirations 2024-12-08 10:53:00.000 16 /min Respirations 2024-12-06 14:32:00.000 16 /min Respirations 2024-12-01 19:10:00.000 16 /min Respirations 2024-11-29 15:33:00.000 16 /min Respirations 2024-11-26 17:26:00.000 16 /min Respirations 2024-11-24 18:25:00.000 16 /min Respirations 2024-11-22 16:40:00.000 16 /min Respirations 2024-11-15 17:15:00.000 16 /min Respirations 2024-11-10 14:44:00.000 16 /min Respirations 2024-11-05 14:31:00.000 16 /min Systolic Blood Pressure 2024-12-31 15:24:00.000 108 mm [Hg] Systolic Blood Pressure 2024-12-23 14:09:00.000 136 mm [Hg] Systolic Blood Pressure 2024-12-22 11:00:00.000 138 mm [Hg] Systolic Blood Pressure 2024-12-15 15:35:00.000 148 mm [Hg] Systolic Blood Pressure 2024-12-13 14:10:00.000 134 mm [Hg] Systolic Blood Pressure 2024-12-08 10:53:00.000 132 mm [Hg] Systolic Blood Pressure 2024-12-06 14:32:00.000 140 mm [Hg] Systolic Blood Pressure 2024-12-01 19:10:00.000 142 mm [Hg] Systolic Blood Pressure 2024-11-29 15:33:00.000 123 mm [Hg] Systolic Blood Pressure 2024-11-26 17:26:00.000 158 mm [Hg] Systolic Blood Pressure 2024-11-24 18:25:00.000 154 mm [Hg] Systolic Blood Pressure 2024-11-22 16:40:00.000 131 mm [Hg] Systolic Blood Pressure 2024-11-15 17:15:00.000 125 mm [Hg] Systolic Blood Pressure 2024-11-10 14:44:00.000 128 mm [Hg] Systolic Blood Pressure 2024-11-05 14:31:00.000 132 mm [Hg] Diastolic Blood Pressure 2024-12-31 15:24:00.000 73 mm [Hg] Diastolic Blood Pressure 2024-12-23 14:09:00.000 80 mm [Hg] Diastolic Blood Pressure 2024-12-22 11:00:00.000 74 mm [Hg] Diastolic Blood Pressure 2024-12-15 15:35:00.000 89 mm [Hg] Diastolic Blood Pressure 2024-12-13 14:10:00.000 76 mm [Hg] Diastolic Blood Pressure 2024-12-08 10:53:00.000 82 mm [Hg] Diastolic Blood Pressure 2024-12-06 14:32:00.000 87 mm [Hg] Diastolic Blood Pressure 2024-12-01 19:10:00.000 76 mm [Hg] Diastolic Blood Pressure 2024-11-29 15:33:00.000 85 mm [Hg] Diastolic Blood Pressure 2024-11-26 17:26:00.000 92 mm [Hg] Diastolic Blood Pressure 2024-11-24 18:25:00.000 86 mm [Hg] Diastolic Blood Pressure 2024-11-22 16:40:00.000 82 mm [Hg] Diastolic Blood Pressure 2024-11-15 17:15:00.000 72 mm [Hg] Diastolic Blood Pressure 2024-11-10 14:44:00.000 77 mm [Hg] Diastolic Blood Pressure 2024-11-05 14:31:00.000 84 mm [Hg] Plan of Treatment Planned Activity [...] TO PRE-POUR MEDICATION PER MEDICATION LIST 3 X WEEK [code = SKILLED NURSE TO PRE-POUR MEDICATION PER MEDICATION LIST 3 X WEEK] Future Scheduled Test PATIENT MA Y HAVE ONE SET OF EMERGENCY MEDICATION NOT TO BE PRE-POURED ANY SOONER THAN 24 HOURS BEFORE SEVERE INCLEMENT WEATHER OR EMERGENT EVENT AND FOLLOWING SKILLED NURSE EVALUATION OF PATIENT SAFETY. [code = PATIENT MAY HAVE ONE SET OF EMERGENCY MEDICATION NOT TO BE PRE-POURED ANY SOONER THAN 24 HOURS BEFORE SEVERE INCLEMENT WEATHER OR EMERGENT EVENT AND FOLLOWING SKILLED NURSE EVALUATION OF PATIENT SAFETY.] Future Scheduled Test SKILLED NU RSE TO O/A OF PATIENTS MENTAL/BEHAVIORAL STATUS, ASSESS VITAL SIGNS WEEKLY. ALLOW 2 PRNS FOR MEDICATION MANAGEMENT. [code = SKILLED NURSE TO O/A OF PATIENTS MENTAL/BEHAVIORAL STATUS, ASSESS VITAL SIGNS WEEKLY. ALLOW 2 PRNS FOR MEDICATION MANAGEMENT.] Future Scheduled Test SKILLED NU RSE FOR O/A OF GENERAL HEALTH STATUS OF PAIN, CARDIAC, RESPIRATORY, GASTROINTESTINAL, GENITOURINARY, SKIN, NEUROLOGIC, ENDOCRINE SYSTEMS TO IDENTIFY CHANGES ASSOCIATED WITH EXACERBATION FOR EARLY INTERVENTION OF COMPLICATIONS WEEKLY. [code = SKILLED NURSE FOR O/A OF GENERAL HEALTH STATUS OF PAIN, CARDIAC, RESPIRATORY, GASTROINTESTINAL, GENITOURINARY, SKIN, NEUROLOGIC, ENDOCRINE SYSTEMS TO IDENTIFY CHANGES ASSOCIATED WITH EXACERBATION FOR EARLY INTERVENTION OF COMPLICATIONS WEEKLY.] Future Scheduled Test SKILLED NU RSE FOR O/A AND SKILLED TEACHING OF COPING SKILLS TO MANAGE ANXIETY AND MAINTAIN SAFETY. [code = SKILLED NURSE FOR O/A AND SKILLED TEACHING OF COPING SKILLS TO MANAGE ANXIETY AND MAINTAIN SAFETY.] Future Scheduled Test SKILLED NU RSE FOR [...] AND SIGNS AND SYMPTOMS HYPO/HYPERGLYCEMIA TO REPORT. [code = SKILLED NURSE FOR O/A AND TEACHING OF DIABETIC MANAGEMENT INCLUDING BLOOD SUGAR MONITORING/USE OF GLUCOMETER, DIABETIC DIET, LOWER EXTREMITY SKIN INSPECTION, PROPER SKIN/FOOT CARE, AND SIGNS AND SYMPTOMS HYPO/HYPERGLYCEMIA TO REPORT.] Future Scheduled Test SKILLED NU RSE FOR O/A AND TEACHING RELATED TO BREAST CANCER INCLUDING SIGNS AND SYMPTOMS OF DISEASE PROGRESSION, TREATMENT, AND MANAGEMENT OF POTENTIAL SIDE EFFECTS. [code = SKILLED NURSE FOR O/A AND TEACHING RELATED TO BREAST CANCER INCLUDING SIGNS AND SYMPTOMS OF DISEASE PROGRESSION, TREATMENT, AND MANAGEMENT OF POTENTIAL SIDE EFFECTS.] Future Scheduled Test SKILLED NU RSE TO [...] SERVICES.] Future Scheduled Test SKILLED NU RSE WILL MAINTAIN SITUATIONAL AWARENESS FOR SAFETY AND WILL NOTIFY CLINICAL FURNACE HELPER AND PHYSICIAN/PROVIDER WITH ANY CHANGE IN CONDITION. [code = SKILLED NURSE WILL MAINTAIN SITUATIONAL AWARENESS FOR SAFETY AND WILL NOTIFY CLINICAL FURNACE HELPER AND PHYSICIAN/PROVIDER WITH ANY CHANGE IN CONDITION.] Goal 2024-12-31 Patient Goal - TO SLEEP BETT ER Goal 2024-10-29 Patient Goal - TO SLEEP BETT ER Goal Patient Goal - TO SLEEP BETT ER Goal Provider Goal - A PLAN OF CARE WILL BE ESTABLISHED THAT MEETS PATIENT'S CARE HOME NEEDS AND INCLUDES PATIENT GOAL FOR HOME HEALTH. Goal Provider Goal - PATIENT WILL COMPLY WITH MEDICATION WHEN SKILLED NURSE PRE-POURS MEDICATION THROUGHOUT CERTIFICATION PERIOD. Goal Provider Goal - MEDICATION WILL BE AVAILABLE DURING INCLEMENT WEATHER OR EMERGENT EVENT THROUGHOUT CERTIFICATION PERIOD. Goal Provider Goal - ALTERED MENTAL/BEHAVIORAL STATUS WILL BE IDENTIFIED PROMPTLY AND INTERVENTION INITIATED QUICKLY TO MINIMIZE ASSOCIATED RISKS THROUGHOUT CERTIFICATION PERIOD. Goal Provider Goal - CHANGE IN GENERAL HEALTH STATUS WILL BE IDENTIFIED AND REPORTED TO PHYSICIAN FOR PROMPT INTERVENTION TO MINIMIZE ASSOCIATED RISKS THROUGHOUT CERTIFICATION PERIOD. Goal Provider Goal - PATIENT WILL BE ABLE TO PERFORM DAILY FUNCTIONS AND HAVE OPTIMAL IMPROVEMENT IN LEVEL OF ANXIETY THROUGHOUT CERTIFICATION PERIOD. Goal Provider Goal - PATIENT WILL REMAIN SAFE WITHOUT DECOMPENSATION IN DEPRESSIVE CONDITION, WHILE MAINTAINING OPTIMAL LEVEL OF MENTAL HEALTH AND WELL BEING THROUGHOUT CERTIFICATION PERIOD. Goal Provider Goal - PATIENT/CAREGIVER WILL VERBALIZE/DEMONSTRATE KNOWLEDGE OF DIABETIC MANAGEMENT. CHANGES IN DIABETIC STATUS WILL BE IDENTIFIED AND REPORTED TO PHYSICIAN FOR PROMPT INTERVENTION THROUGHOUT THE CERTIFICATION PERIOD. Goal Provider Goal - PATIENT/CAREGIVER WILL VERBALIZE/DEMONSTRATE MANAGEMENT OF BREAST CANCER/NEOPLASM DISEASE AND THE SIDE EFFECTS OF TREATMENTS DURING THIS EPISODE. Goal Provider Goal - PATIENT/CAREGIVER WILL VERBALIZE UNDERSTANDING OF EDUCATION PROVIDED ON MEDICATIONS BY THE END OF THE CERTIFICATION PERIOD. Goal Provider Goal - PSYCHOSOCIAL NEEDS WILL BE IDENTIFIED AND PLAN IMPLEMENTED TO MINIMIZE RISK THROUGHOUT CERTIFICATION PERIOD. Goal Provider Goal - PATIENT WILL REMAIN SAFE IN THE COMMUNITY AND WILL BE FREE OF DANGER TO SELF AND OTHERS THROUGHOUT THE CERTIFICATION PERIOD. Encounters Start Date/Time End Date/Time Encounter Type Admission Type Attending [facility] Care Department Encounter ID Discharge Date Discharge Status Discharge Condition Discharge Reason Percent Goals Met 2024-11-03 00:00:00 2025-01-01 00:00:00 Outpatient RECERTIFIC ATION ALBERTA DUFFY [facility] [id number] .00
--- NOTE | ~2025-01-05 | CT_ITS ---
EXAMINATION: CT ABDOMEN PELVIS WITH IV CONTRAST, CT CHEST WITH IV CONTRAST INDICATION: Restaging, renal cell ca with pulm nodules COMPARISON: Comparison is made with the prior examination dated 08/12/2024.. TECHNIQUE: CT scan of the chest, abdomen and pelvis was performed following administration of 85 mL Omnipaque 350 using standard departmental protocol. Coronal and sagittal reformatted images were generated and reviewed. Oral contrast material was not administered at the request of the referring physician. This CT exam was performed with one or more of the following dose reduction techniques: automated exposure control, adjustment of the mA and/or kV according to patient size, use of iterative reconstruction technique. DLP: 905 mGy-cm CHEST: THYROID: The thyroid is unremarkable. LUNGS: The previously described 8 mm left lower lobe nodule is smaller in size measuring approximately 2-3 mm (series 6, image 89). The additional nodules noted on the prior study are no longer apparent. MEDIASTINUM: There is no mediastinal lymphadenopathy. CHRISTIE: There is no hilar lymphadenopathy. CARDIOVASCULATURE: The heart is normal in size. There is no pericardial effusion. The thoracic aorta is normal in caliber. A left-sided port is seen in place. DEGREE OF CORONARY CALCIFICATION: none PLEURA: There is no pleural effusion. No pneumothorax. MAIN AIRWAYS: The mainstem bronchi and proximal branches are patent. AXILLA: There is no axillary lymphadenopathy. SOFT TISSUES: Unremarkable. BONES: The bones are intact. ABDOMEN: LIVER: The liver is normal in size and contour. No liver mass is identified. The hepatic and portal veins are patent. GALLBLADDER / BILE DUCTS: The gallbladder is unremarkable. There is no intra or extrahepatic biliary ductal dilatation. SPLEEN: The spleen is normal in size. No focal splenic lesion is identified. PANCREAS: The pancreas is unremarkable in appearance. ADRENAL GLANDS: Within normal limits. KIDNEYS/RETROPERITONEUM: The patient is status post right nephrectomy. No left renal calculi are identified. There is no hydronephrosis. No left renal masses are identified. LYMPH NODES: No abdominal or pelvic lymphadenopathy. VASCULATURE: The abdominal aorta is normal in caliber. MESENTERY/PERITONEUM: No free fluid. No masses. There is no free intraperitoneal gas. STOMACH: The stomach is collapsed, limiting evaluation. SMALL BOWEL: The small bowel is normal in caliber. COLON: The colon is unremarkable. APPENDIX: Normal. URINARY BLADDER/PELVIC ORGANS: The urinary bladder is collapsed, limiting detailed evaluation. The patient is status post hysterectomy. BONES / SOFT TISSUES: No suspicious bony or soft tissue abnormalities. CT/CT abdomen pelvis w IV con IMPRESSION: 1. The previously seen subcentimeter bilateral pulmonary nodules are either smaller in size or are no longer apparent. 2. Status post right nephrectomy. Otherwise unremarkable contrast-enhanced CT of the abdomen and pelvis. Electronically signed by: Gabo Miller MD 01/05/2025 03:09 PM EDT
--- OUTSIDE RECORDS SUMMARY | 2025-01-05 14:26 | XMS_ITS | Encounter Summary ---
Author Organization [employer] Address [address] [facility] [address] [place] [address] Care Team Providers Care Continuity Tester Name Role Phone Kristy Wilder MD Primary Care Pro vider Reason for Visit * Reason Comments Med Refill Encounter Details Date Type Department Care Team (Late st Contact Info) Description 05/15/[address] [facility] [address] [place], [place] [phone] Evelina Freeman MD [address] [place], [place] [phone] Social History Tobacco Use Types Packs/Day Years [...] Care Team (Late st Contact Info) Description 01/14/2025 9:00 AM EDT Office Visit [facility] [address] [place] [phone] Evelina Freeman MD [address] [place] [address] 02/22/2025 2:00 PM EDT Clinical Support [facility] [address] [place] [address] Colette Diop RN [address] [place] [address] 03/08/2025 10:45 AM EDT Office Visit [facility] [address] [place] [phone] Kristy Wilder MD [address] [place] [address] 04/15/2025 2:30 PM EST Office Visit [facility] [address] [place] [address] Yvonne Miller, OD [address] [place] [address] documented as of this encounter Visit Diagnoses Not on filedocumented in this encounter Additional Health Concerns Assessment Noted Time PHQ-9 Depression Total Score: 16 023 11:20 AM EDT documented as of this encounter Care Teams Continuity Tester Relationship Specialty Start Date End Date Kristy Wilder MD [address] [place] [id number] PCP - General Internal Medicine 12/26/22 Evita Hanna [employer] SupervisorHigh School Math Teacher 11/04/24 documented as of this encounter
--- OUTSIDE RECORDS SUMMARY | 2025-01-05 14:27 | XMS_ITS | Clinical Summary ---
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 Name Role Phone Physician, No Pcp Primary [...] - 10/08/2024 11:37 AM EDT Emergency [facility] [address] [place] [address] Bryson Sinha MD Adverse effect of drug, initial encounter (Primary Dx); Blistering rash Discharge Disposition: Home or Self Care from Last 3 Months Medical History Medical History Date Comments Diabetes mellitus ([facility] V24, [facility] V28) Hypertension Social History Tobacco [...] Influencers of Health Screening 05/11/2022 COVID-19 Vaccine () 02/08/2024 05/14/2022, 05/27/2021, 09/22/2020, Additional history exists Diabetes: Annual Urine Albumin-Creatinine Ratio (uACR) 05/09/2024 Depression Screening 06/09/2024 Diabetes: Blood Sugar Control Test (HGBA1C) 07/08/2024 01/06/2024 Influenza Vaccine (#1) 2025 , 05/14/2022, 05/27/2021 [...] Sinha MD LAB BLOOD ORDERABLES Final Result [facility] [address] [place] [address], from Last 3 Months or Most Recently Relevant to Health Maintenance Insurance MEDICAID - [place] Care Teams 8Th Grade Mathematics Teacher Relationship Specialty Start Date End Date Physician, No Pcp PCP - General 05/09/24
--- OUTSIDE RECORDS SUMMARY | 2025-01-05 14:27 | XMS_ITS | Encounter Summary ---
Author Organization [facility] Address [address] [place] [address] Care Team Providers Care Sternman Name Role Phone Davon Wu Primary Care Provider [phone] Encounter Details Date Type Department Care Team (Late st Contact Info) Description 10/31/2020 Orders Only [facility] Xray [address] [place] [address] Winifred Winston MD [address] [place] [address] Social History Tobacco Use Types Packs/Day Years [...] on filedocumented in this encounter Care Teams Sternman Relationship Specialty Start Date End Date Davon Wu [address] [place] [address] PCP - General Internal Medicine 09/28/18 documented as of this encounter
[2025-01-05] MEDS: iohexoL 350 MG/ML 100 ML INFUS..BTL IV (14:56)
== END 2025-01-05 13:48 | disposition home or self-care (01) ==
LOC: HO.CT 13:47
PROVIDERS: PCP Student in an Organized Health Care Education/Training Program; Visit Provider Nurse Practitioner Family
DX: R91.8 Other nonspecific abnormal finding of lung field (principal); C64.9 Malignant neoplasm of unspecified kidney, except renal pelvis
CPT/HCPCS: 71260; 74177; Q9967

== ENCOUNTER → 2025-01-05 13:49 | Outpatient (BNV) | payer MEDICAID, SELFPAY | PROVIDERS: PCP Student in an Organized Health Care Education/Training Program; Visit Provider Radiology Diagnostic Radiology | DX: Z90.5 Acquired absence of kidney (principal); R91.1 Solitary pulmonary nodule | CPT/HCPCS: 71260; 74177 ==

== ENCOUNTER 2025-02-17 13:34 | Outpatient (REF) | payer MEDICAID, SELFPAY ==
--- OUTSIDE RECORDS SUMMARY | 2025-02-17 17:27 | XMS_ITS | Encounter Summary ---
Author Organization [employer] Address [address] [facility] 7 [place] [address] Care Team Providers Care Electromyographic Technician Name Role Phone Kristy Wilder MD Primary Care Pro vider Bradly Gonzalez MD Unavailable Rk Smith Unavailable Buck Hess DPM Unavailable Reason for Visit * Reason Onset Date Comments PT-1 08/03/2024 Encounter Details Date Type Department Care Team ([facility] st Contact Info) Description 08/03/2024 Telephone [facility] MEDICINE [address] [place], [place] [phone] Kristy Wilder MD [address] [place], [place] [phone] PT-1 Social History Tobacco Use Types Packs/Day [...] Y/N: Yes Provider name or facility name: [facility] Facility Address: [address] [place] [address] Escort needed: Y/N: No Do you have a wheelchair: Y/N: No If yes- Manual or electric: N/A Visits: Twice monthly documented in this encounter Plan of Treatment Upcoming Encounters Date Type Department Care Team (Late st Contact Info) Description 02/22/2025 2:00 PM EDT Clinical Support [facility] MED & PEDS [address] [place] [address] Colette Diop RN [address] [place] [address] 03/08/2025 10:45 AM EDT Office Visit [facility] MEDICINE [address] [place] [address] Kristy Wilder MD [address] [place] [address] 04/15/2025 2:30 PM EST Office Visit [facility] OPTOMETRY [address] [place] [address] Yvonne Miller, OD [address] [place] [address] documented as of this encounter Visit Diagnoses Not on filedocumented in this encounter Additional Health Concerns Assessment Noted Time PHQ-9 Depression Total Score: 4 10/31/19 24 1:38 PM EDT documented as of this encounter Care Teams Electromyographic Technician Relationship Specialty Start Date End Date Kristy Wilder MD [address] [place] [address] PCP - General Internal Medicine 12/26/22 Bradly Gonzalez MD [address] [place] [address] Vascular Surgery 07/17/22 Rk Smith 100 [facility] [address] [place] [address] Otolaryngology 01/14/25 Buck Hess DPM [facility] [address] [place] [address] Podiatry 01/14/25 Evita Hanna Coffee SupervisorReservoir Engineer 11/04/[address] [address] Physical Therapy 07/17/22 documented as of this encounter
--- OUTSIDE RECORDS SUMMARY | 2025-02-17 17:27 | XMS_ITS | Encounter Summary ---
Author Organization [employer] Address [address] [facility] 7 [place] [address] Care Team Providers Care Precast Concrete Ironworker Name Role Phone Kristy Wilder MD Primary Care Pro vider Bradly Gonzalez MD Unavailable Rk Smith Unavailable Buck Hess DPM Unavailable [phone] Reason for Visit * Reason Comments Med Refill Encounter Details Date Type Department Care Team (Late st Contact Info) Description 09/25/2023 Refill [facility] MEDICINE [address] [place], [place] [phone] Kristy Wilder MD [address] [place], [place] [phone] Primary insomnia Social History Tobacco Use Types [...] Description 02/22/2025 2:00 PM EDT Clinical Support [facility] MED & PEDS [address] [place] [address] Colette Diop RN [address] [place] [address] 03/08/2025 10:45 AM EDT Office Visit [facility] MEDICINE [address] [place] [address] Kristy Wilder MD [address] [place] [address] 04/15/2025 2:30 PM EST Office Visit [facility] OPTOMETRY [address] [place] [address] Paul, Yvonne, OD [address] [place] [address] documented as of this encounter Visit Diagnoses Diagnosis Primary insomnia Persistent disorder of initiating or maintaining sleep documented in this encounter Additional Health Concerns Assessment Noted Time PHQ-9 Depression Total Score: 16 023 11:20 AM EDT documented as of this encounter Care Teams Precast Concrete Ironworker Relationship Specialty Start Date End Date Kristy Wilder MD [address] [place] [address] PCP - General Internal Medicine 12/26/22 Bradly Gonzalez MD [address] [facility] [address] [place] [address] Vascular Surgery 07/17/22 Rk Smith 100 [facility] [address] [place] [address] Otolaryngology 01/14/25 Buck Hess DPM 175 [facility] [address] [place] [address] Podiatry 01/14/25 Evita Hanna Utilization ManagerRailway Yard Assistant 11/04/24 [facility] C[facility] [address] [place] [address] Physical Therapy 07/17/22 documented as of this encounter
--- OUTSIDE RECORDS SUMMARY | 2025-02-17 17:27 | XMS_ITS | Encounter Summary ---
Author Organization [employer] Address [address] [facility] 7 [place] [address] Care Team Providers Care Voice Engineer Name Role Phone Kristy Wilder MD Primary Care Pro vider Bradly Gonzalez MD Unavailable Rk Smith Unavailable Buck Hess DPM Unavailable [phone] Reason for Visit * Reason Onset Date Comments Letter for School/Work 12/26/2022 Encounter Details Date Type Department Care Team ([facility] Contact Info) Description 12/26/2022 Telephone [facility] MEDICINE [address] [place], [place] [phone] Kristy Wilder MD [address] [place], [place] [phone] Letter for School/Work Social History Tobacco Use [...] for PCP to make a letter for ASSISTANT COMMUNITY DIRECTOR hours and dx on letter to be faxed to [phone] documented in this encounter Plan of Treatment Upcoming Encounters Date Type Department Care Team (Late st Contact Info) Description 02/22/2025 2:00 PM EDT Clinical Support [facility] CH[facility] MED & PEDS [address] [place] [address] Colette Diop, BRICE [address] [place] [address] 03/08/2025 10:45 AM EDT Office Visit [facility] MEDICINE [address] [place] [address] Kristy Wilder MD [address] [place] [address] 04/15/2025 2:30 PM EST Office Visit [facility] OPTOMETRY [address] [place] [address] Yvonne Miller, OD [address] [place] [address] documented as of this encounter Visit Diagnoses Not on filedocumented in this encounter Additional Health Concerns Assessment Noted Time PHQ-9 Depression Total Score: 11 022 1:16 PM EST documented as of this encounter Care Teams Voice Engineer Relationship Specialty Start Date End Date Kristy Wilder MD [address] [place] [address] PCP - General Internal Medicine 12/26/22 Bradly Gonzalez MD [address] [place] [address] Vascular Surgery 07/17/22 Rk Smith [address] [place] [address] Otolaryngology 01/14/25 Buck Hess DPM 175 [facility] 250 [place] [address] Podiatry 01/14/25 Evita Hanna Ferry Boat CaptainMachine Heel Sprayer 11/04/24 [facility] [address] [place] [address] Physical Therapy 07/17/22 documented as of this encounter
--- OUTSIDE RECORDS SUMMARY | 2025-02-17 17:27 | XMS_ITS | Encounter Summary ---
Author Organization [employer] Address [address] [facility] 7t [place] [address] Care Team Providers Care Curator Horticultural Museum Name Role Phone Khloe Fonseca PULMONOLOGY TECHNICIAN Primary Care Provider Kristy Ring MD Primary Care Pro vider Bradly Gonzalez MD Unavailable Rk Smith Unavailable Buck Hess DPM Unavailable [phone] Reason for Visit * Reason Onset Date Comments Med Refill [facility] 08/25/2022 Order # [id number] Encounter Details Date Type Department Care Team (Late st Contact Info) Description 08/25/2022 Refill [facility] MEDICINE [address] [place] [address] Khloe Fonseca FNP Type 2 diabetes mellitus without complication, without long-term current use of insulin ([facility]) Social History Tobacco Use Types [...] Description 02/22/2025 2:00 PM EDT Clinical Support [facility] CH[facility] MED & PEDS [address] [place] [address] Colette Diop RN [address] [place] [address] 03/08/2025 10:45 AM EDT Office Visit [facility] MEDICINE [address] [place] [address] Kristy Wilder MD [address] [place] [address] 04/15/2025 2:30 PM EST Office Visit [facility] OPTOMETRY [address] [place] [address] Yvonne Miller, OD [address] [place] [address] documented as of this encounter Visit Diagnoses Diagnosis Type 2 diabetes mellitus without complication, without long-term current use of insulin ([facility]) documented in this encounter Additional Health Concerns Assessment Noted Time PHQ-9 Depression Total Score: 11 022 1:16 PM EST documented as of this encounter Care Teams Curator Horticultural Museum Relationship Specialty Start Date End Date Khloe Fonseca FNP PCP - General Family Medicine 02/05/22 12/25/22 Kristy Wilder MD [address] [place] [address] PCP - General Internal Medicine 12/26/22 Bradly Gonzalez MD [address] [place] [address] Vascular Surgery 07/17/22 Rk Smith [address] [place] [address] Otolaryngology 01/14/25 Buck Hess DPM 175 [facility] 250 [place] [address] Podiatry 01/14/25 Evita Hanna Product TechnicianMeat Pumper 11/04/24 [facility] CORE [address] [place] [address] Physical Therapy 07/17/22 documented as of this encounter
--- OUTSIDE RECORDS SUMMARY | 2025-02-17 17:27 | XMS_ITS | Encounter Summary ---
Author Organization [employer] Address [address] [facility] 7t [place] [address] Care Team Providers Care Senior Marketing Analyst Name Role Phone Kristy Wilder MD Primary Care Pro vider Bradly Gonzalez MD Unavailable Rk Smith Unavailable Buck Hess DPM Unavailable [phone] Reason for Visit * Reason Comments Med Refill Encounter Details Date Type Department Care Team (Late st Contact Info) Description 05/15/2023 Refill [facility] MEDICINE [address] [place], [place] [phone] Evelina Freeman MD [address] [place], [place] [phone] Social History Tobacco Use Types Packs/Day Years [...] Description 02/22/2025 2:00 PM EDT Clinical Support [facility] MED & PEDS [address] [place] [address] Colette Diop RN [address] [place] [address] 03/08/2025 10:45 AM EDT Office Visit [facility] MEDICINE [address] [place] [address] Kristy Wilder MD [address] [place] [address] 04/15/2025 2:30 PM EST Office Visit [facility] OPTOMETRY [address] [place] [address] Paul, Yvonne, OD [address] [place] [address] documented as of this encounter Visit Diagnoses Not on filedocumented in this encounter Additional Health Concerns Assessment Noted Time PHQ-9 Depression Total Score: 16 023 11:20 AM EDT documented as of this encounter Care Teams Senior Marketing Analyst Relationship Specialty Start Date End Date Kristy Wilder MD [address] [place] [address] PCP - General Internal Medicine 12/26/22 Bradly Gonzalez MD [address] [facility] [address] [place] [address] Vascular Surgery 07/17/22 Rk Smith 100 [facility] [address] [place] [address] Otolaryngology 01/14/25 Buck Hess DPM [address] [place] [address] [address] [place] [address] Podiatry 01/14/25 Evita Hanna Boot Liner MakerGrips 11/04/[address] [address] Physical Therapy 07/17/22 documented as of this encounter
--- OUTSIDE RECORDS SUMMARY | 2025-02-17 17:27 | XMS_ITS | Clinical Summary ---
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 water, juice, coffee or tea 225 g 2 023 Active naloxone (Narcan) 4 mg/0.1 mL nasal spray Administer 4 mg into affected nostril(s) if needed for opioid reversal. May repeat every 2-3 minutes if needed, alternating nostrils, until medical assistance becomes available. Active ammonium lactate (Lac-Hydrin) 12 % lotion Apply topically if needed (at bedtime). 024 Active Eliquis 5 MG tablet Take 1 tablet by mouth 2 times daily. 024 Active cholestyramine (Questran) 4 g packet Take 1 packet by mouth with breakfast, with lunch, and with evening meal. Active diphenoxylate-atr opine (Lomotil) 2.5-0.025 MG tablet Take 1 tablet by mouth 4 times daily. Active loperamide (Imodium) 2 MG capsule Take 1 capsule by mouth if needed in the morning, at noon, in the evening, and at bedtime. Active betamethasone, augmented, (Diprolene) 0.05 % ointmentIndicatio ns:Psoriasis Apply topically 2 times daily. 50 g 11 Active FREESTYLE LITE test strip TEST BLOOD SUGAR THREE TIMES DAILY 100 strip Active TRUEplus Lancets 33G misc TEST BLOOD SUGAR THREE TIMES DAILY 100 each 024 Active Alcohol Swabs (Alcohol Prep) 70 % padsIndications:T ype 2 diabetes mellitus without complications (CMS/HCC) USE DIRECTED THREE TIMES DAILY 100 each 11 024 Active calcipotriene (Dovonex) 0.005 % ointmentIndicatio ns:Psoriasis APPLY TOPICALLY TO THE AFFECTED AREA(S) TWICE DAILY 60 g 3 025 Active Fluocinolone Acetonide Scalp 0.01 % oilIndications:Ps oriasis APPLY TOPICALLY TO THE AFFECTED AREA(S) TWICE A WEEK 118.28 mL 3 025 Active atorvastatin (Lipitor) 10 MG tabletIndications :Mixed hyperlipidemia TAKE 1 TABLET BY MOUTH AT BEDTIME 90 tablet 1 Active famotidine (Pepcid) 20 MG tabletIndications :Gastroesophageal reflux disease without esophagitis TAKE 1 TABLET BY MOUTH TWICE DAILY IN THE MORNING AND AT BEDTIME 180 tablet 1 Active losartan (Cozaar) 25 MG tabletIndications :Primary hypertension TAKE 1 TABLET BY MOUTH EVERYDAY AT NOON 90 tablet 1 Active metFORMIN (Glucophage) 500 MG tabletIndications :Elevated blood sugar TAKE 1 TABLET BY MOUTH EVERY MORNING and TAKE 2 TABLETS BY MOUTH EVERY DAY IN THE EVENING 270 tablet 1 Active Multiple Vitamin (Multivitamin) tablet TAKE 1 TABLET BY MOUTH EVERY MORNING 90 tablet Active docusate sodium (Colace) 100 MG capsuleIndication s:Therapeutic opioid induced constipation Take 1 capsule (100 mg) by mouth 2 times daily. TAKE 1 CAPSULE BY MOUTH AT BEDTIME NEEDED 60 capsule 2 2025 Active nystatin (Mycostatin) 039675 UNIT/GM powder Apply topically if needed each day for rash. 60 g 1 Active levothyroxine (Synthroid) 75 MCG tabletIndications :Acquired hypothyroidism Take 1 tablet (75 mcg) by mouth before breakfast. 90 tablet 025 2025 Active cholecalciferol (Vitamin D-3) 25 MCG (1000 UT) tablet Take 1 tablet (25 mcg) by mouth Once per day. 90 tablet 025 2025 Active oxyCODONE (Roxicodone) 5 MG immediate release tabletIndications :Back pain, unspecified back location, unspecified back pain laterality, unspecified chronicity TAKE 1 TABLET BY MOUTH TWICE DAILY IN THE MORNING AND AT BEDTIME NEEDED FOR SEVERE PAIN 28 tablet Active sertraline (Zoloft) 100 MG tablet Take 1 tablet (100 mg) by mouth Once per day. 30 tablet 1 Active busPIRone (Buspar) 10 MG tablet Take 1 tablet (10 mg) by mouth 2 times daily. To keep med in bottle 60 tablet Active Dulaglutide (Trulicity) 1.5 MG/0.5ML solution auto-injector Inject 1.5 mg under the skin 1 (one) time per week. 0.5 mL 3 025 Active hydrOXYzine HCl (Atarax) 25 MG tablet Take 1 tablet (25 mg) by mouth every 12 (twelve) hours if needed for itching or anxiety. 30 tablet Active propranolol (Inderal) 10 MG tablet TAKE 1 TABLET BY MOUTH TWICE DAILY IN THE MORNING AND IN THE EVENING 180 tablet Active zolpidem (Ambien) 10 MG tabletIndications :Primary insomnia TAKE 1 TABLET BY MOUTH AT BEDTIME 28 tablet 025 Active senna (Senokot) 8.6 MG tablet TAKE 1 TABLET BY MOUTH TWICE DAILY IN THE MORNING AND AT BEDTIME FOR CONSTIPATION 180 tablet 1 025 Active senna (Senokot) 8.6 MG tablet Take 1 tablet (8.6 mg) by mouth if needed in the morning and at bedtime for constipation. 30 tablet 2 025 2024 Discontinued zolpidem (Ambien) 10 MG tabletIndications :Primary insomnia Take 1 tablet (10 mg) by mouth at bedtime. Do not start before January 04, 2025. 28 tablet 025 2024 Discontinued(R eorder (will not trigger notification to Pharmacy)) Active Problems Problem Noted Date Diagnosed Date Transaminitis 01/14/2025 Moderate episode of recurrent major depressive d isorder 01/12/2025 Assessment & Plan (01/17/2025 9:49 AM EDT): During IBH Consult Krys presenting with depressed mood, Tearful, hopelessness, irritable mood, isolating, change in appetite or weight reduce appetite, changes in sleep difficulty falling asleep and difficulty staying asleep , psychomotor retardation, worthlessness, inappropriate/excessive guilt , difficulty concentrating, indecisiveness; for a period of 6-12 mo, for most or all symptoms in the context of illness or family illness. Pt with ongoing depression and multiple psychosocial stressors such as family issues, cancer diagnosis and lack of family support. Pt is currently engaged in therapy services with N. We discussed strategies to decrease sxs and importance of continuing CBT services with current therapist. Malignant neoplasm metastati c to lung, unspecified laterality 12/21/2024 Constipation 12/21/2024 Long-term current use of opiate analgesic 2024 Otitis externa 12/15/2023 Skin rash 08/02/2023 Renal vein thrombosis 06/21/2023 Health care maintenance 03/11/2023 Chronic pain 03/11/2023 Varicose veins of both lower extremities 023 Family history of cancer 03/11/2023 Malignant neoplasm of lower lobe of left lung Overview (02/16/2023): Lung, left lower lobe, needle core biopsy: Metastatic clear cell renal cell carcinoma in keeping with patient's known renal primary. Care managed by Oncology Has started PO and intravenous chemo, intravenous every 2 weeks and PO daily. Next appt 01/23/23 Assessment & Plan (02/16/2023 8:00 PM EDT): Encouraged pt to bring Interne[employer] application for Augmentra to Forms team. Pt has difficulty breathing r/t lung cancer diagnosis Pt will contact [facility] about increasing hours F/u PRN Therapeutic opioid induced constipation 05/14/20 22 Anxiety 04/25/2022 Depressive disorder 04/25/2022 Essential hypertension 04/25/2022 History of nephrectomy 04/25/2022 Migraine without aura 04/25/2022 Psoriasis 04/25/2022 Assessment & Plan (02/21/2023 10:08 AM EDT): Encouraged patient to discontinue Methotrexate and Folic acid. Initiate Betamethasone Ointment BID as needed. RTC in 6mo, as needed Type 2 diabetes mellitus wit h other specified complication, without long-term current use of insulin 02/28/2020 Overview (02/16/2023): Education provided re: therapeutic lifestyle changes. Encouraged patient to exercise/walk as much as possible, avoid soda/sugary beverages, drink water, eat high fiber/whole grains, fresh or frozen fruits and veg, try to avoid greasy and/or sugary foods. Will continue and increase Trulicity dose to 3mg, pt agrees even though she has a phobia of needles. Goal glycemic control and weight loss. Will stop Jardiance 10mg 1 tablet daily since we are increasing Trulicity dose, A1c is at goal and pt is experiencing significant polyuria on medication. Educated pt that polyuria is normal with medication Continue Gabapentin for neuropathy 300mg 1 tablet at bedtime; Metformin 500mg 1 tablet AM, 2 tablet PM A1c: 7.0 today 10/23/22. Was 7.1 04/11/22 [...] was grade 3. status post nephrectomy, at [facility] in January. 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 Marilyn grade 3. Stage IIIA, with renal vein extention. Stutent started on June 17. Urology appt 12/18/22: f/u appt H/O: hysterectomy 02/10/2018 Resolved Problems Problem Noted Date Diagnosed Date Resolved Date Overweight 11/01/2023 01/07/2024 Surgical wound, non healing 08/02/2023 11/01/2023 Obesity [...] 10/23/2018 12/10/2022 Renal mass 08/13/2018 03/11/2023 Encounters * This document contains information received from the source organization and may not represent a complete record from that organization. Date Type Department Care Team Description 02/09/2025 Refill [facility] [address] [place] [address] Kristy Wilder MD 01/31/2025 Refill [facility] [address] [place] [address] Kristy Wilder MD Primary insomnia 01/17/2025 Refill [facility] [address] [place] [address] Kristy Wilder MD 01/14/2025 9:45 AM EDT Office Visit [facility] [address] [place] [address] Kristy Wilder MD Essential hypertension (Primary Dx); Type 2 diabetes mellitus with other specified complication, without long-term current use of insulin (CMS/HCC); Obesity, unspecified class, unspecified obesity type, unspecified whether serious comorbidity present; Health care maintenance; Malignant neoplasm metastatic to lung, unspecified laterality (CMS/HCC); Renal cell carcinoma of right kidney (CMS/HCC); Anxiety; Depressive disorder; Transaminitis 01/14/2025 Travel 01/13/2025 Telephone [facility] [address] [place] [phone] Kristy Wilder MD chart prep 01/11/2025 Orders Only [facility] [address] [place] [address] Kristy Wilder MD 01/10/[address] [address] Kristy Wilder MD requesting call back 01/10/[address] [address] Kristy Wilder MD Call Back Request 01/05/2025 Orders Only [facility] External Provider, [facility] 12/31/2024 Patient Outreach [address] [phone] Kristy Wilder MD Care Coordination ([facility] outreach for SDOH PT-1 and food needs-LVM ) 12/31/[address] [address] Kristy Wilder MD PT-1 12/30/2024 Refill [facility] [address] [place] [address] Kristy Wilder MD Back pain, unspecified back location, unspecified back pain laterality, unspecified chronicity; Primary insomnia 12/27/2024 11:00 AM EDT Telemedicine [facility] [address] [place] [address] Colette Diop RN Back pain, unspecified back location, unspecified back pain laterality, unspecified chronicity 12/27/2024 Travel 12/22/2024 Orders Only [address] [address] Kristy Wilder MD Type 2 diabetes mellitus with other specified complication, without long-term current use of insulin (CMS/HCC) (Primary Dx); Acquired hypothyroidism; Obesity, unspecified class, unspecified obesity type, unspecified whether serious comorbidity present 12/21/2024 11:30 AM EDT Office Visit [address] [address] Kristy Wilder MD Malignant neoplasm metastatic to lung, unspecified laterality (CMS/HCC) (Primary Dx); Dietary counseling; Exercise counseling; Type 2 diabetes mellitus with other specified complication, without long-term current use of insulin (CMS/HCC); Therapeutic opioid induced constipation; Health care maintenance; Essential hypertension; Renal cell carcinoma of right kidney (CMS/HCC); Anxiety; Depressive disorder; Constipation, unspecified constipation type 12/21/2024 Travel 12/20/2024 Telephone [facility] [address] [place] [phone] Kristy Wilder MD chart prep 12/15/2024 Patient Outreach [facility] [address] [place] [address] Kristy Wilder MD Pre-visit Planning (SDOH was already completed) 12/08/2024 Orders Only [facility] [address] [place] [phone] Kristy Wilder MD 12/05/[address] [address] Deb Crockett ANP Elevated blood sugar 12/01/2024 Refill [facility] [address] [place] [address] Kristy Wilder MD Primary insomnia from Last 3 Months Immunizations Immunization Administration Dates Next Due Hep B, adult [...] Answer Date Recorded Patient Health Questionnaire-9 Score 12 01/17/2025 Patient Health Questionnaire-9 Score 12 01/17/2025 Last PHQ-9: Questionnaire Data Not on file 0 01/17/2025 Housing Stability Answer Date Recorded What is [...] Date Recorded Patient Health Questionnaire-2 Score 6 01/17/2025 Internet Access Answer Date Recorded Internet Access [...] Sign Reading Time Taken Comments Blood Pressure 112/80 01/14/2025 9:51 AM EDT Pulse 64 01/14/2025 9:51 AM EDT Temperature 36 C (96.8 F) 01/14/2025 9:51 AM EDT Respiratory Rate 20 01/14/2025 9:51 AM EDT Oxygen Saturation 96% 12/21/2024 11:11 AM EDT Inhaled Oxygen Concentration - - Weight 88.2 kg (194 lb 6.4 oz) 01/14/2025 9:51 A M EDT Height 167.6 cm (5' 6 ) 01/14/2025 9:51 AM EDT Body Mass Index 31.38 01/14/2025 9:51 AM EDT Plan of Treatment Upcoming Encounters Date Type Department Care Team (Late st Contact Info) Description 02/22/2025 2:00 PM EDT Clinical Support [facility] [address] [place] [address] Colette Diop, BRICE [address] [place] [address] 03/08/2025 10:45 AM EDT Office Visit [facility] [address] [place] [address] Kristy Wilder MD [address] [place] [address] 04/15/2025 2:30 PM EST Office Visit [facility] [address] [place] [address] Paul, Yvonne, OD [address] [place] [address] Health Maintenance Due Date Last Done Comments CT Colonography 1967 FIT DNA/Cologuard 1967 FIT 1967 FOBT 1965 Sigmoidoscopy 1967 HPV/Cotest 1997 Diabetes: Foot Exam 08/28/2023 08/27/2022, 3 Cervical Cancer Screening 11/02/2023 Pap Smear 11/02/2023 11/01/2020 COVID-19 Vaccine ( season) 2025 05/14/2022, 05/27/2021, 09/22/2020, Additional history exists Influenza Vaccine (#1) 2025 3, 05/14/2022, 05/27/2021 Diabetes: Hemoglobin A1C 06/24/2025 025, 01/06/2024, 12/19/2023, Additional history exists Depression Monitoring 07/20/2025 01/17/2025, 025 SDOH Screening 09/20/2025 09/20/2024 Mammogram 12/08/2025 12/08/2024, 11/08, 12/02/2022, Additional history exists Alcohol/Substance Use Screening 12/21/2025 12/21/2024 Disability Screening 12/21/2025 12/21/2024 Diabetes: Urine Protein Screening 12/22/2025 12/22/2024, 07/23/2023, 11/23/2021 Lipid Panel 12/22/2025 12/22/2024, 12/07, 07/23/2023, Additional history exists Tobacco Screening 01/14/2026 01/14/2025 Eye Exam 03/17/2026 03/17/2024, 10/0 02/2024, 03/17/2024, Additional history exists Colonoscopy 11/23/2028 11/23/2018 Colorectal Cancer Screening 11/23/2028 DTaP/Tdap/Td Vaccines (2 - Td or Tdap) 04/09/2029 04/09/2019 RSV Patients and Patients Aged 60 years or older (1 - 1-dose 75+ series) 2042 Zoster Vaccines Completed 12/31/2021, 09/06/2021 Pneumococcal Vaccine: 50+ Years Completed 03/11/2023, 04/09/2019 Hepatitis B Vaccines Completed 03/02/2024, 08/29/2023, 08/01/2023 HIV Screening Completed 12/22/2024, 07/10, 11/23/2021 Hepatitis C Screening Completed 12/22/2024 , 07/23/2023, 11/23/2021 HIB Vaccines Aged Out No longer eligi [...] Name Priority Date/Time Associated Diagnosis Comments CT ABDOMEN PELVIS W CONTRAST Routine 01/05/2025 2:[address] CHEST W CONTRAST Routine 01/05/2025 2 :21 PM EDT VITAMIN D,25-OH,TOTAL,IA Routine 12/22/2024 9:56 AM EDT Health care maintenance VITAMIN B12/FOLATE, SERUM PANEL Routine 12/22/2024 9:56 AM EDT Health care maintenance SYPHILIS SCREEN Routine 12/22/2024 9:56 AM EDT Health care maintenance LIPID PANEL, STANDARD Routine 12/22/2024 9:56 AM EDT Health care maintenance HIV 1/2 ANTIGEN/ANTIBODY, FOURTH GENERATION W/RFL Routine 12/22/2024 9:56 AM EDT Health care maintenance HEPATITIS C AB W/REFL TO HCV RNA, QN, PCR Routine 12/22/2024 9:56 AM EDT Health care maintenance HEPATITIS B SURFACE ANTIGEN, EIA Routine 12/22/2024 9:56 AM EDT Health care maintenance HEMOGLOBIN A1C Routine 12/22/2024 9:56 AM EDT Health care maintenance COMPREHENSIVE METABOLIC PANEL Routine 12/22/2024 9:56 AM EDT Health care maintenance ALBUMIN, RANDOM URINE W/CREATININE Routine 12/22/2024 9:56 AM EDT Health care maintenance CBC Routine 12/22/2024 9:56 AM EDT Health care maintenance TSH Routine 12/22/2024 9:56 AM EDT Health care maintenance T4, FREE Routine 12/22/2024 9:56 AM EDT Health care maintenance CHLAMYDIA/TRICHOMONAS/ NEISSERIA GONORRHOEAE, PCR, URINE Routine 12/22/2024 9:56 AM EDT Health care maintenance BI MAMMOGRAM SCREENING TOMOSYNTHESIS BILATERAL Routine 12/08/2024 1:55 PM EDT HM PAP/HPV Routine 11/01/2020 HM COLONOSCOPY Routine 11/23/2018 from Last 3 Months or Most Recently Relevant to Health Maintenance Results * CT Abdomen Pelvis w/ Contrast (01/05/2025 2:21 PM EDT) Anatomical Region Laterality Modality Body, Pelvis, Abdomen Computed T omography 01/05/2025 2:21 PM EDT Narrative 01/05/2025 3:12 PM EDT [place] [address] CT Scan Report Signed Patient: Krys Gillis MR# : [id number] : 1965 Acct:[id number] Age/Sex: 59 / F ADM Date: 01/05/25 Loc: HO.CT Attending Dr: Sammie Leon NP Ordering Physician: Sammie Leon NP Date of Service: 01/05/25 Procedure(s): CT abdomen pelvis w IV con Accession Number(s): [id number] cc: Justina Erickson MD; Kristy Wilder MD; Sammie Leon NP Report Number: [id number]: Total DLP = 905.00 mGy-cm EXAMINATION: CT ABDOMEN PELVIS WITH IV CONTRAST, CT CHEST WITH IV CONTRAST INDICATION: Restaging, renal cell ca with pulm nodules COMPARISON: Comparison is made with the prior examination dated 08/12/2024.. TECHNIQUE: CT scan of the chest, abdomen and pelvis was performed following administration of 85 mL Omnipaque 350 using standard departmental protocol. Coronal and sagittal reformatted images were generated and reviewed. Oral contrast material was not administered at the request of the referring physician. This CT exam was performed with one or more of the following dose reduction techniques: automated exposure control, adjustment of the mA and/or kV according to patient size, use of iterative reconstruction technique. DLP: 905 mGy-cm CHEST: THYROID: The thyroid is unremarkable. LUNGS: The previously described 8 mm left lower lobe nodule is smaller in size measuring approximately 2-3 mm (series 6, image 89). The additional nodules noted on the prior study are no longer apparent. MEDIASTINUM: There is no mediastinal lymphadenopathy. CHRISTIE: There is no hilar lymphadenopathy. CARDIOVASCULATURE: The heart is normal in size. There is no pericardial effusion. The thoracic aorta is normal in caliber. A left-sided port is seen in place. DEGREE OF CORONARY CALCIFICATION: none PLEURA: There is no pleural effusion. No pneumothorax. MAIN AIRWAYS: The mainstem bronchi and proximal branches are patent. AXILLA: There is no axillary lymphadenopathy. SOFT TISSUES: Unremarkable. BONES: The bones are intact. ABDOMEN: LIVER: The liver is normal in size and contour. No liver mass is identified. The hepatic and portal veins are patent. GALLBLADDER / BILE DUCTS: The gallbladder is unremarkable. There is no intra or extrahepatic biliary ductal dilatation. SPLEEN: The spleen is normal in size. No focal splenic lesion is identified. PANCREAS: The pancreas is unremarkable in appearance. ADRENAL GLANDS: Within normal limits. KIDNEYS/RETROPERITONEUM: The patient is status post right nephrectomy. No left renal calculi are identified. There is no hydronephrosis. No left renal masses are identified. LYMPH NODES: No abdominal or pelvic lymphadenopathy. VASCULATURE: The abdominal aorta is normal in caliber. MESENTERY/PERITONEUM: No free fluid. No masses. There is no free intraperitoneal gas. STOMACH: The stomach is collapsed, limiting evaluation. SMALL BOWEL: The small bowel is normal in caliber. COLON: The colon is unremarkable. APPENDIX: Normal. URINARY BLADDER/PELVIC ORGANS: The urinary bladder is collapsed, limiting detailed evaluation. The patient is status post hysterectomy. BONES / SOFT TISSUES: No suspicious bony or soft tissue abnormalities. CT/CT abdomen pelvis w IV con IMPRESSION: 1. The previously seen subcentimeter bilateral pulmonary nodules are either smaller in size or are no longer apparent. 2. Status post right nephrectomy. Otherwise unremarkable contrast-enhanced CT of the abdomen and pelvis. Electronically signed by: Gabo Miller MD 01/05/2025 03:09 PM EDT RP Dictated By: Gabo Miller MD Signed By: <Electronically signed by Gabo Miller MD in OV> 01/05/25 1509 DD/ 1421 TD/TT: 01/05/25 1454 Construction Project Mgr: Procedure Note Donotuseinterpreter, Image - 01/05/[address] [place] [address] [address] Scan Report Signed Patient: Krys Gillis# : [id number] : 1965Acct:[id number] Age/Sex: 59 / FADM Date: 01/05/25 Loc: HO.CT Attending Dr: Sammie Leon NP Ordering Physician: Sammie Leon NP Date of Service: 01/05/25 Procedure(s): CT abdomen pelvis w IV con Accession Number(s): [id number] cc: Justina Erickson MD; Kristy Wilder MD; Mark Leon Report Number: [id number]: Total DLP = 905.00 mGy-cm EXAMINATION: CT ABDOMEN PELVIS WITH IV CONTRAST, CT CHEST WITH IV CONTRAST INDICATION: Restaging, renal cell ca with pulm nodules COMPARISON: Comparison is made with the prior examination dated 08/12/2024.. TECHNIQUE: CT scan of the chest, abdomen and pelvis was performed following administration of 85 mL Omnipaque 350 using standard departmental protocol. Coronal and sagittal reformatted images were generated and reviewed. Oral contrast material was not administered at the request of the referring physician. This CT exam was performed with one or more of the following dose reduction techniques: automated exposure control, adjustment of the mA and/or kV according to patient size, use of iterative reconstruction technique. DLP: 905 mGy-cm CHEST: THYROID: The thyroid is unremarkable. LUNGS: The previously described 8 mm left lower lobe nodule is smaller in size measuring approximately 2-3 mm (series 6, image 89). The additional nodules noted on the prior study are no longer apparent. MEDIASTINUM: There is no mediastinal lymphadenopathy. CHRISTIE: There is no hilar lymphadenopathy. CARDIOVASCULATURE: The heart is normal in size. There is no pericardial effusion. The thoracic aorta is normal in caliber. A left-sided port is seen in place. DEGREE OF CORONARY CALCIFICATION: none PLEURA: There is no pleural effusion. No pneumothorax. MAIN AIRWAYS: The mainstem bronchi and proximal branches are patent. AXILLA: There is no axillary lymphadenopathy. SOFT TISSUES: Unremarkable. BONES: The bones are intact. ABDOMEN: LIVER: The liver is normal in size and contour. No liver mass is identified. The hepatic and portal veins are patent. GALLBLADDER / BILE DUCTS: The gallbladder is unremarkable. There is no intra or extrahepatic biliary ductal dilatation. SPLEEN: The spleen is normal in size. No focal splenic lesion is identified. PANCREAS: The pancreas is unremarkable in appearance. ADRENAL GLANDS: Within normal limits. KIDNEYS/RETROPERITONEUM: The patient is status post right nephrectomy. No left renal calculi are identified. There is no hydronephrosis. No left renal masses are identified. LYMPH NODES: No abdominal or pelvic lymphadenopathy. VASCULATURE: The abdominal aorta is normal in caliber. MESENTERY/PERITONEUM: No free fluid. No masses. There is no free intraperitoneal gas. STOMACH: The stomach is collapsed, limiting evaluation. SMALL BOWEL: The small bowel is normal in caliber. COLON: The colon is unremarkable. APPENDIX: Normal. URINARY BLADDER/PELVIC ORGANS: The urinary bladder is collapsed, limiting detailed evaluation. The patient is status post hysterectomy. BONES / SOFT TISSUES: No suspicious bony or soft tissue abnormalities. CT/CT abdomen pelvis w IV con IMPRESSION: 1. The previously seen subcentimeter bilateral pulmonary nodules are either smaller in size or are no longer apparent. 2. Status post right nephrectomy. Otherwise unremarkable contrast-enhanced CT of the abdomen and pelvis. Electronically signed by: Gabo Miller MD 01/05/2025 03:09 PM EDT RP Dictated By: Gabo Miller MD Signed By: <Electronically signed by Gabo Miller MD in OV> 01/05/25 1509 DD/ 1421 TD/TT: 01/05/25 1454 Construction Project Mgr: [facility] External Provider IMG CT PROCEDURES Final Result * CT Chest w/ Contrast (01/05/2025 2:21 PM EDT) Anatomical Region Laterality Modality Body, Chest Computed Tomogra phy 01/05/2025 2:21 PM EDT Narrative 01/05/2025 3:12 PM EDT [address] [address] [address] Scan Report Signed Patient: Krys Gillis MR# : [id number] : 1965 Acct:[id number] Age/Sex: 59 / F ADM Date: 01/05/25 Loc: HO.CT Attending Dr: Sammie Leon NP Ordering Physician: Sammie Leon NP Date of Service: 01/05/25 Procedure(s): CT chest w IV con Accession Number(s): [id number] cc: Justina Erickson MD; Kristy Wilder MD; Sammie Leon NP Report Number: [id number]: Total DLP = 905.00 mGy-cm EXAMINATION: CT ABDOMEN PELVIS WITH IV CONTRAST, CT CHEST WITH IV CONTRAST INDICATION: Restaging, renal cell ca with pulm nodules COMPARISON: Comparison is made with the prior examination dated 08/12/2024.. TECHNIQUE: CT scan of the chest, abdomen and pelvis was performed following administration of 85 mL Omnipaque 350 using standard departmental protocol. Coronal and sagittal reformatted images were generated and reviewed. Oral contrast material was not administered at the request of the referring physician. This CT exam was performed with one or more of the following dose reduction techniques: automated exposure control, adjustment of the mA and/or kV according to patient size, use of iterative reconstruction technique. DLP: 905 mGy-cm CHEST: THYROID: The thyroid is unremarkable. LUNGS: The previously described 8 mm left lower lobe nodule is smaller in size measuring approximately 2-3 mm (series 6, image 89). The additional nodules noted on the prior study are no longer apparent. MEDIASTINUM: There is no mediastinal lymphadenopathy. CHRISTIE: There is no hilar lymphadenopathy. CARDIOVASCULATURE: The heart is normal in size. There is no pericardial effusion. The thoracic aorta is normal in caliber. A left-sided port is seen in place. DEGREE OF CORONARY CALCIFICATION: none PLEURA: There is no pleural effusion. No pneumothorax. MAIN AIRWAYS: The mainstem bronchi and proximal branches are patent. AXILLA: There is no axillary lymphadenopathy. SOFT TISSUES: Unremarkable. BONES: The bones are intact. ABDOMEN: LIVER: The liver is normal in size and contour. No liver mass is identified. The hepatic and portal veins are patent. GALLBLADDER / BILE DUCTS: The gallbladder is unremarkable. There is no intra or extrahepatic biliary ductal dilatation. SPLEEN: The spleen is normal in size. No focal splenic lesion is identified. PANCREAS: The pancreas is unremarkable in appearance. ADRENAL GLANDS: Within normal limits. KIDNEYS/RETROPERITONEUM: The patient is status post right nephrectomy. No left renal calculi are identified. There is no hydronephrosis. No left renal masses are identified. LYMPH NODES: No abdominal or pelvic lymphadenopathy. VASCULATURE: The abdominal aorta is normal in caliber. MESENTERY/PERITONEUM: No free fluid. No masses. There is no free intraperitoneal gas. STOMACH: The stomach is collapsed, limiting evaluation. SMALL BOWEL: The small bowel is normal in caliber. COLON: The colon is unremarkable. APPENDIX: Normal. URINARY BLADDER/PELVIC ORGANS: The urinary bladder is collapsed, limiting detailed evaluation. The patient is status post hysterectomy. BONES / SOFT TISSUES: No suspicious bony or soft tissue abnormalities. CT/CT chest w IV con IMPRESSION: 1. The previously seen subcentimeter bilateral pulmonary nodules are either smaller in size or are no longer apparent. 2. Status post right nephrectomy. Otherwise unremarkable contrast-enhanced CT of the abdomen and pelvis. Electronically signed by: Gabo Miller MD 01/05/2025 03:09 PM EDT Dictated By: Gabo Miller MD Signed By: <Electronically signed by Gabo Miller MD in OV> 01/05/25 1509 DD/ 1421 TD/TT: 01/05/25 1454 Construction Project Mgr: Procedure Note Donotlucyinterpreter, Image - 01/05/[address] [address] [address] Scan Report Signed Patient: Princess Gillis# : [id number] : 1965Acct:[id number] Age/Sex: 59 / FADM Date: 01/05/25 Loc: HO.CT Attending Dr: Sammie Leon NP Ordering Physician: Sammie Leon NP Date of Service: 01/05/25 Procedure(s): CT chest w IV con Accession Number(s): [id number] cc: Justina Erickson MD; Kristy Wilder MD; Mark Leon Report Number: [id number]: Total DLP = 905.00 mGy-cm EXAMINATION: CT ABDOMEN PELVIS WITH IV CONTRAST, CT CHEST WITH IV CONTRAST INDICATION: Restaging, renal cell ca with pulm nodules COMPARISON: Comparison is made with the prior examination dated 08/12/2024.. TECHNIQUE: CT scan of the chest, abdomen and pelvis was performed following administration of 85 mL Omnipaque 350 using standard departmental protocol. Coronal and sagittal reformatted images were generated and reviewed. Oral contrast material was not administered at the request of the referring physician. This CT exam was performed with one or more of the following dose reduction techniques: automated exposure control, adjustment of the mA and/or kV according to patient size, use of iterative reconstruction technique. DLP: 905 mGy-cm CHEST: THYROID: The thyroid is unremarkable. LUNGS: The previously described 8 mm left lower lobe nodule is smaller in size measuring approximately 2-3 mm (series 6, image 89). The additional nodules noted on the prior study are no longer apparent. MEDIASTINUM: There is no mediastinal lymphadenopathy. CHRISTIE: There is no hilar lymphadenopathy. CARDIOVASCULATURE: The heart is normal in size. There is no pericardial effusion. The thoracic aorta is normal in caliber. A left-sided port is seen in place. DEGREE OF CORONARY CALCIFICATION: none PLEURA: There is no pleural effusion. No pneumothorax. MAIN AIRWAYS: The mainstem bronchi and proximal branches are patent. AXILLA: There is no axillary lymphadenopathy. SOFT TISSUES: Unremarkable. BONES: The bones are intact. ABDOMEN: LIVER: The liver is normal in size and contour. No liver mass is identified. The hepatic and portal veins are patent. GALLBLADDER / BILE DUCTS: The gallbladder is unremarkable. There is no intra or extrahepatic biliary ductal dilatation. SPLEEN: The spleen is normal in size. No focal splenic lesion is identified. PANCREAS: The pancreas is unremarkable in appearance. ADRENAL GLANDS: Within normal limits. KIDNEYS/RETROPERITONEUM: The patient is status post right nephrectomy. No left renal calculi are identified. There is no hydronephrosis. No left renal masses are identified. LYMPH NODES: No abdominal or pelvic lymphadenopathy. VASCULATURE: The abdominal aorta is normal in caliber. MESENTERY/PERITONEUM: No free fluid. No masses. There is no free intraperitoneal gas. STOMACH: The stomach is collapsed, limiting evaluation. SMALL BOWEL: The small bowel is normal in caliber. COLON: The colon is unremarkable. APPENDIX: Normal. URINARY BLADDER/PELVIC ORGANS: The urinary bladder is collapsed, limiting detailed evaluation. The patient is status post hysterectomy. BONES / SOFT TISSUES: No suspicious bony or soft tissue abnormalities. CT/CT chest w IV con IMPRESSION: 1. The previously seen subcentimeter bilateral pulmonary nodules are either smaller in size or are no longer apparent. 2. Status post right nephrectomy. Otherwise unremarkable contrast-enhanced CT of the abdomen and pelvis. Electronically signed by: Gabo Miller MD 01/05/2025 03:09 PM EDT Dictated By: Gabo Miller MD Signed By: <Electronically signed by Gabo Miller MD in OV> 01/05/25 1509 DD/ 1421 TD/TT: 01/05/25 4754 Construction Project Mgr: [facility] External Provider IMG CT PROCEDURES Final Result * Chlamydia/Trichomonas/Neisseria gonorrhoeae, PCR, Urine (12/22/2024 9:56 AM EDT) CT PCR, Urine NOT DETECTED Not Detect. [facility] Comment:A not detected test result does not exclude the possibilityof infection because test results can be affected byimproper specimen collection, concurrent antibiotic therapy,or the number of organisms in the specimen which may bebelow the sensitivity of the test. As with many diagnostictests, results from the Xpert CT/NG assay should beinterpreted in conjunction with other laboratory andclinical data available to the clinician.The Xpert CT/NG assay should not be used for the evaluationof suspected sexual abuse or for other medico-legalindications. Additional testing is recommended in anycircumstance when false positive or false negative resultscould lead to adverse medical, social or psychologicalconsequences. NG PCR, Urine NOT DETECTED Not Detect. [facility] Comment:A not detected test result does not exclude the possibilityof infection because test results can be affected byimproper specimen collection, concurrent antibiotic therapy,or the number of organisms in the specimen which may bebelow the sensitivity of the test. As with many diagnostictests, results from the Xpert CT/NG assay should beinterpreted in conjunction with other laboratory andclinical data available to the clinician.The Xpert CT/NG assay should not be used for the evaluationof suspected sexual abuse or for other medico-legalindications. Additional testing is recommended in anycircumstance when false positive or false negative resultscould lead to adverse medical, social or psychologicalconsequences. Urine (Urine, Random) 12/22/2024 9:56 AM EDT 12/22/2024 11:08 AM EDT us Kristy Mosley MD LAB URINE ORDERAB LES Final Result [facility] [address] [place] [phone] * Syphilis Screen (12/22/2024 9:56 AM EDT) Pathologist [facility] Syphilis Screen Nonreactive Nonreactive [facility] Blood 12/22/2024 9:56 AM EDT 12/22/2024 11:07 AM EDT us Kristy Mosley MD LAB BLOOD ORDERAB LES Final Result Performing Organization Address City/[facility]/ZIP Co de Phone Number [facility] [address] [place] [phone] * (ABNORMAL) Vitamin D, 25-Hydroxy, Total, Immunoassay (12/22/2024 9:56 AM EDT) Vitamin D 25-OH Total 27.4(L) >30 ng/mL [facility] Comment: Health Based Reference Values*< 20 ng/mL Gcerppwhj01-12 ng/mL Insufficient> 30 ng/mL Sufficient*Lilia MALLORY. N Engl J Med. 2007;357:266-280There is no well-established upper level of normal vitamin Dlevels. Some laboratories use 50 ng/mL as an upper limit ofnormal. However, toxicity is patient-dependent and may occurat any level. Careful correlation with the patient'spresentation is necessary and, if there is concern forvitamin D toxicity, treatment should be consideredirrespective of the serum level.Care must be taken in interpreting Vitamin D results fromdifferent laboratories and methodologies. Published datademonstrated that results from patients undergoinghemodialysis may show a negative bias when tested withvarious automated 25-OH vitamin D assays when compared toLC-MS/MS.When testing samples from patients whose predominant form ofVitamin D is Vitamin D2, such as patients receiving VitaminD2 supplementation, results that are subtherapeutic shouldbe confirmed with another method such as LC-MS/MS. Blood Venous blood specimen / Unknown 12/22/2024 9:56 AM EDT 12/22/2024 11:07 AM EDT us Kristy Mosley MD LAB BLOOD ORDERAB LES Final Result Performing Organization Address City/[facility]/ZIP Co de Phone Number [facility] [address] [place] [phone] [phone] * Vitamin B12 (Cobalamin) and Folate Panel, Serum (12/22/2024 9:56 AM EDT) Vitamin B12 362 200 - 900 pg/mL [facility] Comment:NORMAL 200-900 PG/ML INDETERMINATE 160-199 PG/ML DEFICIENT < 160 PG/ML Folate 14.5 > or = 4.0 ng/mL [facility] Comment:Reference Values:> o r = 4.0 ng/mL< 4.0 ng/mL suggests folate deficiency Methotrexate, aminopterin and folinic acid(leucovorin) are chemotherapeutic agents whose molecularstructures are similar to folate; therefore, the Architectfolate assay cannot be used for patients using these drugs. Blood 12/22/2024 9:56 AM EDT 12/22/2024 11:09 AM EDT us Kristy Mosley MD LAB BLOOD ORDERAB LES Final Result Performing Organization Address City/[facility]/ZIP Co de Phone Number [facility] [address] [place] [phone] * Albumin, Random Urine W/Creatinine (12/22/2024 9:56 AM EDT) Creatinine, Urine 257.42 mg/dL [facility] Microalbumin Urine 23.0 mg/L [facility] Microalbum Creatinine Ratio Ur 8.9 <30 ug/mg cr [facility] Comment:Albumin/Creatinine R atio Reference Ranges: Normal: < 30 ug/mg creatinine Microalbuminuria: 30 - 300 ug/mg creatinineClinical Albuminuria: > 300 ug/mg creatinine Urine (Urine, Random) 12/22/2024 9:56 AM EDT 12/22/2024 11:08 AM EDT us Kristy Mosley MD LAB URINE ORDERAB LES Final Result Performing Organization Address City/[facility]/ZIP Co de Phone Number [facility] [address] [place] [phone] * Hepatitis C Antibody with Reflex to HCV, RNA, Quantitative, Real-Time PCR (12/22/2024 9:56 AM EDT) Pathologist [facility] Hepatitis C Antibody Nonreactive Nonreactive [facility] Comment:Antibodies to HCV no t detected; does not exclude early acuteHCV infection. Blood Venous blood specimen / Unknown 12/22/2024 9:56 AM EDT 12/22/2024 11:07 AM EDT Kristy Mosley MD LAB BLOOD ORDERAB LES Final Result [facility] [address] [place] [phone] * Hepatitis B surface antigen, EIA (12/22/2024 9:56 AM EDT) [facility] Hepatitis B Surface Ag Negative Negative [facility] Blood Venous blood specimen / Unknown 12/22/2024 9:56 AM EDT 12/22/2024 11:07 AM EDT Kristy Mosley MD LAB BLOOD ORDERAB LES Final Result [facility] [address] [place] [phone] * HIV-1/2 Antigen and Antibodies, Fourth Generation, with Reflexes (12/22/2024 9:56 AM EDT) Pathologist [facility] HIV AB/AG Nonreactive Nonreactive [facility] Comment:HIV-1 p24 Ag and/or HIV-1/HIV-2 Ab not detected.A test result that is nonreactive does not exclude thepossibility of exposure to or infection with HIV-1 and/orHIV-2. Nonreactive results in this assay for individualswith prior exposure to HIV-1 and/or HIV-2 may be due toantigen and antibody levels that are below the limit ofdetection of this assay.The exozet HIV Ag/Ab Combo assay result andsupplemental assay results should be interpreted inconjunction with the patient's clinical presentation,history and other laboratory results. If the results areinconsistent with clinical evidence, additional testing issuggested to confirm the result. Blood Venous blood specimen / Unknown 12/22/2024 9:56 AM EDT 12/22/2024 11:07 AM EDT Kristy Mosley MD LAB BLOOD ORDERAB LES Final Result [facility] [address], [place] [phone] * (ABNORMAL) CBC (12/22/2024 9:56 AM EDT) White Blood Count 4.5(L) 4.8 - 10.8 X10*3/uL [facility] Red Blood Count 4.25 4.20 - 5.50 X10*6/uL [facility] Hemoglobin 13.6 12.0 - 16.0 g/dl [facility] Hematocrit 39.3 37.0 - 47.0 % [facility] Mean Corpuscular Volume 92.5 80.0 - 98.0 fL [facility] Mean Corpuscular Hemoglobin 32.0 27.0 - 33.0 pg [facility] Mean Corpuscular HGB Conc 34.6 31.0 - 35.0 g/dl [facility] Red Cell Distribution Width 15.6 11.0 - 16.0 % [facility] Platelet Count 203 160 - 400 X10*3/uL [facility] Mean Platelet Volume 10.3 9.4 - 12.3 fL [facility] NRBC Pct Auto 0.0 0.0 - 0.2 /100WBC [facility] NRBC Abs Auto 0.000 0.0 - 0.012 X10*3/uL [facility] Blood Venous blood specimen / Unknown 12/22/2024 9:56 AM EDT 12/22/2024 11:09 AM EDT us Kristy Mosley MD LAB BLOOD ORDERAB LES Final Result Performing Organization Address [facility]/ZIP Co de Phone Number [facility] [address] [place] [phone] * (ABNORMAL) TSH (12/22/2024 9:56 AM EDT) Thyroid Stimulating Hormone 74.78(H) 0.32 - 4.0 uIU/mL [facility] Comment:Note: A sustained TS H level above 2.5 uIU/mL may warrant further investigation. TSH 3rd Generation ([facility]) Blood Venous blood specimen / Unknown 12/22/2024 9:56 AM EDT 12/22/2024 11:07 AM EDT us Kristy Mosley MD LAB BLOOD ORDERAB LES Final Result Performing Organization Address [facility]/ZIP Co de Phone Number [facility] [address] [place] [phone] * (ABNORMAL) T4, Free (12/22/2024 9:56 AM EDT) Pathologist [facility] Free T4 (Free Thyroxine) 0.51(L) 0.71 - 1.85 ng/dL [facility] Blood Venous blood specimen / Unknown 12/22/2024 9:56 AM EDT 12/22/2024 11:07 AM EDT us rKisty Mosley MD LAB BLOOD ORDERAB LES Final Result Performing Organization Address City/[facility] Co de Phone Number [facility] [address] [place] [address] [phone] * (ABNORMAL) Hemoglobin A1c (12/22/2024 9:56 AM EDT) Hemoglobin A1c 6.7(H) <6.0 % [facility] Comment:Hemoglobin A1C Refer ence Range Adults: 4.8 - 6.0 % Non diabetic: < 6.0 % Goal: < 7.0 %Additional Action Suggested: > 8.0 %Note: Hemoglobin A1c results are invalid for patients with abnormal amounts of HbF. Blood transfusions may impact the HbA1c concentration in the patient sample. Estimated Average Glucose 146 mg/dL [facility] Comment:eAG = Estimated ave rage glucose which is %A1C expressed asaverage glucose, using the formula of the I4B-AbfbxgpPlgukwj Glucose study (ADAG), Diabetes Care, Vol.31,#8,Jan. 2007 Blood Venous blood specimen / Unknown 12/22/2024 9:56 AM EDT 12/22/2024 11:09 AM EDT us Kristy Mosley MD LAB BLOOD ORDERAB LES Final Result [facility] [address] [place] [phone] * (ABNORMAL) Lipid Panel, Standard (12/22/2024 9:56 AM EDT) Triglycerides 100 <150 mg/dL [facility] Comment:Desirable Triglyceri de: less than 150 mg/dLBorderline High Triglyceride 150-199 mg/dLHigh Triglyceride: 200-499 mg/dLVery High Triglyceride: greater than or equal to 5OO mg/dL Cholesterol 277(H) <200 mg/dL [facility] Comment:Desirable Cholestero l: less than 200 mg/dLBorderline High Cholesterol: 200-239 mg/dLHigh Cholesterol: greater than 239 mg/dL LDL Cholesterol Calculated 208(H) <100 mg/dL [facility] Comment:Desirable LDL: less than 100 mg/dLNear Optimal/Above Optimal LDL: 110- 129 mg/dLBorderline High LDL: 130-159 mg/dLHigh LDL: 160-189 mg/dLVery High LDL: greater than or equal to 190 mg/dL HDL Cholesterol 49 >40 mg/dL [facility] Comment:Desirable HDL: great er than 40 mg/dL Note: This HDL assay may give artificially low results in patients with liver disease. Blood Venous blood specimen / Unknown 12/22/2024 9:56 AM EDT 12/22/2024 11:07 AM EDT us Kristy Mosley MD LAB BLOOD ORDERAB LES Final Result [facility] [address] [place] [phone] * (ABNORMAL) Comprehensive Metabolic Panel (12/22/2024 9:56 AM EDT) Sodium 141 135 - 145 mmol/L [facility] Potassium 4.0 3.3 - 5.1 mmol/L [facility] Chloride 103 96 - 108 mmol/L [facility] Carbon Dioxide 31(H) 22 - 29 mmol/L [facility] Anion Gap 11(L) 12 - 20 [facility] Urea Nitrogen (BUN) 13 9 - 16 mg/dL [facility] Creatinine, Serum 1.24 0.5 - 1.4 mg/dL [facility] Estimated Glomerular Filt Rate 45 [facility] Comment:Chronic Kidney Disea se: Estimated GFR < 60 mL/min/1.23f4Ligptg Kidney Disease: Estimated GFR < 15 mL/min/1.73m2 Glucose 115 60 - 115 mg/dL [facility] Calcium 9.5 8.4 - 10.2 mg/dL [facility] Bilirubin, Total 1.1(H) 0.0 - 1.0 mg/dL [facility] Aspartate Amino Transferase 64(H) 5 - 31 U/L [facility] Alanine Aminotransferase 73(H) 0 - 31 U/L [facility] Total Protein 7.5 6.5 - 8.0 g/dL [facility] Albumin Level 4.6 3.5 - 5.0 g/dL [facility] Alkaline Phosphatase 80 39 - 117 U/L [facility] Blood Venous blood specimen / Unknown 12/22/2024 9:56 AM EDT 12/22/2024 11:07 AM EDT us Kristy Mosley MD LAB BLOOD ORDERAB LES Final Result [facility] [address] [facility] [place] [phone] * BI Mammogram Screening Tomosynthesis Bilateral (12/08/2024 1:55 PM EDT) Anatomical Region Laterality Modality Breast Bilateral Mammography 12/08/2024 1:55 PM EDT Narrative 12/19/2024 9:17 PM EDT [address] [place] [address] Mammography Report Signed Patient: Krys Gillis MR# : [id number] : 1965 Acct:[id number] Age/Sex: 59 / F ADM Date: 12/08/24 Loc: HO.MAMMO Attending Dr: Kristy Mosley MD Ordering Physician: Kristy Wilder MD Re sults: 1Negative Date of Service: 12/08/24 Follow Up: 1 Year From Orig inal Mammogram Procedure(s): MM tomosynthesis screening BI Accession Number(s): [id number] cc: Kristy Wilder MD EXAMINATION: MM SCREENING DIGITAL BREAST TOMOSYNTHESIS, BILATERAL CLINICAL INFORMATION: Screening. Asymptomatic. COMPARISON: Mammography: Comparison is made with available priors TECHNIQUE: Digital breast mammography with tomosynthesis is performed in both the craniocaudal and mediolateral oblique views along with computer-aided detection (CAD). FINDINGS: There are scattered areas of fibroglandular density (ACR BI-RADS breast composition Category b). There are no significant masses, abnormal calcifications, or other abnormalities. MM/MM tomosynthesis screening BI IMPRESSION: No mammographic evidence of malignancy. ASSESSMENT: BI-RADS BI-RADS 1 - Negative RECOMMENDATION: Routine annual mammography screening. 1 year F/U This examination should not preclude the clinical evaluation of a suspicious palpable abnormality. This patient's information was entered into a reminder system with a target due date for their next mammogram. Electronically signed by: Meri Benson DO 12/19/2024 09:14 PM EDT RP Dictated By: Meri Benson DO Signed By: <Electronically signed by Meri Benson DO in OV> 12/19/242113 DD/ 1355 TD/TT: 12/08/24 1410 Construction Project Mgr: Procedure Note Donotuseinterpreter, Image - 12/19/2024 [facility] [address] [place], [place] [address] Mammography Report Signed Patient: Krys GillisMR# : [id number] : 1965Acct:[id number] Age/Sex: 59 / FADM Date: 12/08/24 Loc: HO.MAMMO Attending Dr: Kristy Mosley MD Ordering Physician: Kristy Wilder sults: 1Negative Date of Service: 12/08/24Follow Up: 1 Year From Orig inal Mammogram Procedure(s): MM tomosynthesis screening BI Accession Number(s): [id number] cc: Kristy Wilder MD EXAMINATION: MM SCREENING DIGITAL BREAST TOMOSYNTHESIS, BILATERAL CLINICAL INFORMATION: Screening. Asymptomatic. COMPARISON: Mammography: Comparison is made with available priors TECHNIQUE: Digital breast mammography with tomosynthesis is performed in both the craniocaudal and mediolateral oblique views along with computer-aided detection (CAD). FINDINGS: There are scattered areas of fibroglandular density (ACR BI-RADS breast composition Category b). There are no significant masses, abnormal calcifications, or other abnormalities. MM/MM tomosynthesis screening BI IMPRESSION: No mammographic evidence of malignancy. ASSESSMENT: BI-RADS BI-RADS 1 - Negative RECOMMENDATION: Routine annual mammography screening. 1 year F/U This examination should not preclude the clinical evaluation of a suspicious palpable abnormality. This patient's information was entered into a reminder system with a target due date for their next mammogram. 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
--- OUTSIDE RECORDS SUMMARY | 2025-02-17 17:27 | XMS_ITS | Encounter Summary ---
Author Organization [employer] Address 75 [facility] 7t [place] [address] Care Team Providers Care Lathe Puller Name Role Phone Khloe Fonseca Primary Care Provider Kristy Ring MD Primary Care Pro vider Bradly Gonzalez MD Unavailable Rk Smith Unavailable Buck Hess DPM Unavailable [phone] Reason for Visit * Reason Onset Date Comments pt1 10/16/2022 Encounter Details Date Type Department Care Team ([facility] st Contact Info) Description 10/16/2022 Telephone [facility] MEDICINE 230 [place] [address] Khloe Fonseca FNP pt1 Social History Tobacco Use Types Packs/Day [...] Nannette Whittaker - 10/24/2022 10:19 AM EDT Campus Rep called and left voicemail for pt stating Pt1 Request was approved and she may call to schedule * Telephone Encounter - Nannette Whittaker - 10/24/2022 10:17 AM EDT Patient will recieve approval / denial letter via mail. PT-1 Request [id number] Pending - [facility] [address] [place] [address] Dr Mg [place] [phone] * Telephone Encounter - Eddie Sousa - 10/21/2022 10:14 AM EDT Tc from pt requesting status on PT1. Date: October 22, 2022 Time: 2:45 pm address:[address] [place] [address] [place] [address] specialty:Pulmonology Center # visits: propagator: no Wheelchair: no * Telephone Encounter - Marko Rodriguez - 10/16/2022 11:51 AM EDT Tc from pt requesting pt1 ride Date: october 22, 2022 Time: 2:45 pm address:[address] [place], [place] [address]RUFUS mike [id number] specialty:Pulmonology Center # visits: propagator: no Wheelchair: no documented in this encounter Plan of Treatment Upcoming Encounters Date Type Department Care Team (Late st Contact Info) Description 02/22/2025 2:00 PM EDT Clinical Support [facility] CHC MED & PEDS 505 [place] [address] Colette Diop, BRICE 505 [place], [place] 03/08/2025 10:45 AM EDT Office Visit [facility] MEDICINE 230 [place] [address] Kristy Wilder MD 230 [place], [place] 04/15/2025 2:30 PM EST Office Visit [facility] OPTOMETRY [address] [place], [place] [phone] Yvonne Miller, OD 230 [place] [address] documented as of this encounter Visit Diagnoses Not on filedocumented in this encounter Additional Health Concerns Assessment Noted Time PHQ-9 Depression Total Score: 11 022 1:16 PM EST documented as of this encounter Care Teams Lathe Puller Relationship Specialty Start Date End Date Khloe Fonseca FNP PCP - General Family Medicine 02/05/22 12/25/22 Kristy Wilder MD 230 [place] [address] PCP - General Internal Medicine 12/26/22 Bradly Gonzalez MD [address] [place] [address] Vascular Surgery 07/17/22 Rk Smith 100 [facility] [address] [place] [address] Otolaryngology 01/14/25 Buck Hess DPM 175 [facility] [address] [place] [address] Podiatry 01/14/25 Evita Hanna Laboratory TechnicianPhoto Manager 11/04/24 [facility] [place] 575 [facility] [address] Physical Therapy 07/17/22 documented as of this encounter
--- OUTSIDE RECORDS SUMMARY | 2025-02-17 17:27 | XMS_ITS | Encounter Summary ---
Author Organization [email or web address] Address 75 [facility] 7t [place] [address] Care Team Providers Care Final Armature Tester Name Role Phone Khloe Fonseca THEATRE PROGRAM DIRECTOR Primary Care Provider Kristy Ring MD Primary Care Pro vider Bradly Gonzalez MD Unavailable Rk Smith Unavailable Buck Hess DPM Unavailable [phone] Reason for Visit * Reason Onset Date Comments OTHER 12/24/2022 Encounter Details Date Type Department Care Team (Late Contact Info) Description 12/24/2022 Telephone [facility] MEDICINE [address] [place] [address] Khloe Fonseca FNP OTHER Social History Tobacco Use Types Packs/Day [...] To clarify, please contact pt sister at [phone] documented in this encounter Plan of Treatment Upcoming Encounters Date Type Department Care Team (Late Contact Info) Description 02/22/2025 2:00 PM EDT Clinical Support [facility] CHC MED & PEDS 505 [place] [address] Colette Diop, RN 505 [place], [place] 03/08/2025 10:45 AM EDT Office Visit [facility] MEDICINE 230 [place] [address] Kristy Wilder MD 230 [place] [address] 04/15/2025 2:30 PM EST Office Visit [facility] OPTOMETRY 267 [place] [address] Yvonne Miller, OD 230 [place] [address] documented as of this encounter Visit Diagnoses Not on filedocumented in this encounter Additional Health Concerns Assessment Noted Time PHQ-9 Depression Total Score: 11 022 1:16 PM EST documented as of this encounter Care Teams Final Armature Tester Relationship Specialty Start Date End Date Khloe Fonseca FNP PCP - General Family Medicine 02/05/22 12/25/22 Kristy Wilder MD [address] [place] [address] PCP - General Internal Medicine 12/26/22 Bradly Gonzalez MD [address] [place] [address] Vascular Surgery 07/17/22 Rk Smith [address] [place], [place] [address] Otolaryngology 01/14/25 Buck Hess DPM 175 [facility] [address] [place] [address] Podiatry 01/14/25 Evita Hanna Ecosystem Ecology ProfessorRug Repairer 11/04/[address] [address] Physical Therapy 07/17/22 documented as of this encounter
--- OUTSIDE RECORDS SUMMARY | 2025-02-17 17:27 | XMS_ITS | Encounter Summary ---
Author Organization [employer] Address 75 [facility] 7t [place] [address] Care Team Providers Care Toggler Name Role Phone Khloe Fonseca Primary Care Provider Kristy Ring MD Primary Care Pro vider Bradly Gonzalez MD Unavailable Rk Smith Unavailable Buck Hess DPM Unavailable [phone] Reason for Visit * Reason Onset Date Comments pt1 10/03/2022 Encounter Details Date Type Department Care Team ([facility] st Contact Info) Description 10/03/2022 Telephone [facility] MEDICINE 230 [place] [address] Khloe Fonseca FNP pt1 Social History Tobacco [...] AM EDT documented as of this encounter Functional Status * Over the last 2 weeks, how often have you been bothered by any of the following problems? Question Answer Date of Assessment Author Feeling nervous, anxious, or on edge 3 10/03/2022 9:34 AM EDT Jessenia Boston, FUR FINISHER Not being able to stop or control worrying 3 10/03/2022 9:34 AM EDT Jessenia Boston LICSW Worrying too much about different things 3 10/03/2022 9:34 AM EDT Jessenia Boston LICSW Trouble relaxing 3 10/03/2022 9:34 AM EDT R Jennifer turcios LICSW Being so restless that it is hard to sit still 3 10/03/2022 9:34 AM EDT Jessenia Boston FUR FINISHER Becoming easily annoyed or irritable 3 10/03/2022 9:34 AM EDT Jessenia Boston FUR FINISHER Feeling afraid as if something awful might happen 3 10/03/2022 9:34 AM EDT Jennifer Boston LICSW SILVESTRE-7 Total Score 21 10/03/2022 9:34 AM EDT Jennifer Boston LICSW documented as of this encounter Miscellaneous Notes * Telephone Encounter - Marko Rodriguez - 10/03/2022 4:21 PM EDT Tc from pt requesting a pt1 ride Date: oct 07 2022 Time: 2:30 pm address: [address] [place] [address] [address], [place] [address] specialty: # visits: dividend deposit entry clerk: no Wheelchair: no Date:10/23/22 Time:02 pm address: [facility] specialty: PCP # visits: dividend deposit entry clerk: no Wheelchair: no Date:11/07/22 Time: 1:30 address: [facility] specialty: PCP # visits: dividend deposit entry clerk: no Wheelchair:no documented in this encounter Plan of Treatment Upcoming Encounters Date Type Department Care Team (Late st Contact Info) Description 02/22/2025 2:00 PM EDT Clinical Support [facility] CHC MED & PEDS 505 [place] [address] Colette Diop, BRICE 505 [place] [address] 03/08/2025 10:45 AM EDT Office Visit [facility] MEDICINE 230 [place] [address] Kristy Wilder MD 230 [place] [address] 04/15/2025 2:30 PM EST Office Visit [facility] OPTOMETRY [address] [place] [address] Yvonne Miller, OD 230 [place] [address] documented as of this encounter Visit Diagnoses Not on filedocumented in this encounter Additional Health Concerns Assessment Noted Time PHQ-9 Depression Total Score: 11 022 1:16 PM EST documented as of this encounter Care Teams Toggler Relationship Specialty Start Date End Date Khloe Fonseca FNP PCP - General Family Medicine 02/05/22 12/25/22 Kristy Wilder MD 230 [place] [address] PCP - General Internal Medicine 12/26/22 Bradly Gonzalez MD [address] [place] [address] Vascular Surgery 07/17/22 Rk Smith 100 [facility] 100 [place], [place] [address] Otolaryngology 01/14/25 Buck Hess DPM 175 [facility] 250 [place] [address] Podiatry 01/14/25 Evita Hanna Modern Languages ProfessorMachinist Linotype 11/04/24 [facility] CORE 575 [facility] [address] Physical Therapy 07/17/22 documented as of this encounter
--- OUTSIDE RECORDS SUMMARY | 2025-02-17 17:27 | XMS_ITS | Encounter Summary ---
Author Organization [employer] Address 75 [facility] 7t [place] [address] Care Team Providers Care Freight Hustler Name Role Phone Kristy Wilder MD Primary Care Pro vider Bradly Gonzalez MD Unavailable Rk Smith Unavailable Buck Hess DPM Unavailable [phone] Reason for Visit * Reason Onset Date Comments Reschedule 07/07/2023 Encounter Details Date Type Department Care Team ([facility] st Contact Info) Description 07/07/2023 Telephone [facility] MEDICINE 230 [place], [place] [phone] Kristy Wilder MD 230 [place], [place] [phone] Reschedule Social History Tobacco Use Types Packs/Day [...] Miscellaneous Notes * Telephone Encounter - Mariluz Darnell - 07/07/2023 11:38 AM EST Tc from pt requesting to r/s 07/25 SHEET CUTTING OPERATOR appointment due to pt having 2 appointments scheduled same day and will be doing chemo. Please contact pt at [phone] (Slovenian) documented in this encounter Plan of Treatment Upcoming Encounters Date Type Department Care Team (Late st Contact Info) Description 02/22/2025 2:00 PM EDT Clinical Support [facility] CHC MED & PEDS 505 [place] [address] Colette Diop, RN 505 [place] [address] 03/08/2025 10:45 AM EDT Office Visit [facility] MEDICINE 230 [place] [address] Kristy Wilder MD 230 [place] [address] 04/15/2025 2:30 PM EST Office Visit [facility] OPTOMETRY [address] [place] [address] Yvonne Miller, OD 230 [place] [address] documented as of this encounter Visit Diagnoses Not on filedocumented in this encounter Additional Health Concerns Assessment Noted Time PHQ-9 Depression Total Score: 16 023 11:20 AM EDT documented as of this encounter Care Teams Freight Hustler Relationship Specialty Start Date End Date Kristy Wilder MD 230 [place] [address] PCP - General Internal Medicine 12/26/22 Bradly Gonzalez MD [address] [place] [address] [address] [place] [address] Vascular Surgery 07/17/22 Rk Smith 100 [facility] 100 [place], [place] [address] Otolaryngology 01/14/25 Buck Hess DPM [address] [place] [address] 250 [place] [address] Podiatry 01/14/25 Evita Hanna Surgical TechFloor Refinisher 11/04/[address] [address] Physical Therapy 07/17/22 documented as of this encounter
--- OUTSIDE RECORDS SUMMARY | 2025-02-17 17:27 | XMS_ITS | Encounter Summary ---
Author Organization [employer] Address 75 [facility] 7 [place] [address] Care Team Providers Care Sales Apprentice Name Role Phone Kristy Wilder MD Primary Care Pro vider Bradly Gonzalez MD Unavailable Rk Smith Unavailable Buck Hess DPM Unavailable [phone] Reason for Visit * Reason Comments Med Refill Encounter Details Date Type Department Care Team (Late st Contact Info) Description 09/10/2023 Refill [facility] MEDICINE 230 [place], [place] [phone] Kristy Wilder MD 230 [place], [place] [phone] Type 2 diabetes mellitus with diabetic polyneuropathy, without long-term current use of insulin ([facility]) Social History Tobacco Use Types Packs/Day Years [...] Upcoming Encounters Date Type Department Care Team ([facility] st Contact Info) Description 02/22/2025 2:00 PM EDT Clinical Support [facility] CHC MED & PEDS 505 [place] [address] Colette Diop RN 505 [place] [address] 03/08/2025 10:45 AM EDT Office Visit [facility] MEDICINE 230 [place] [address] Kristy Wilder MD [address] [place] [address] 04/15/2025 2:30 PM EST Office Visit [facility] OPTOMETRY 267 [place] [address] Yvonne Miller, OD 230 [place] [address] documented as of this encounter Visit Diagnoses Diagnosis Type 2 diabetes mellitus with diabetic polyneuropathy, without long-term current use of insulin ([facility]) documented in this encounter Additional Health Concerns Assessment Noted Time PHQ-9 Depression Total Score: 16 023 11:20 AM EDT documented as of this encounter Care Teams Sales Apprentice Relationship Specialty Start Date End Date Kristy Wilder MD [address] [place] [address] PCP - General Internal Medicine 12/26/22 Bradly Gonzalez MD [address] [place] [address] Vascular Surgery 07/17/22 Rk Smith [address] [place] [address] Otolaryngology 01/14/25 Buck Hess DPM 175 [facility] [address] [place] [address] Podiatry 01/14/25 Evita Hanna Furnace RepairerComputer Terminal Operator 11/04/[address] [address] Physical Therapy 07/17/22 documented as of this encounter
--- OUTSIDE RECORDS SUMMARY | 2025-02-17 17:27 | XMS_ITS | Encounter Summary ---
Author Organization [employer] Address 75 [facility] 7 [place] [address] Care Team Providers Care Cream Cheese Maker Name Role Phone Kristy Wilder MD Primary Care Pro vider Bradly Gonzalez MD Unavailable Rk Smith Unavailable Buck Hess DPM Unavailable [phone] Reason for Visit * Reason Onset Date Comments PT-1 12/31/2024 Encounter Details Date Type Department Care Team ([facility] st Contact Info) Description 12/31/2024 Telephone [facility] MEDICINE 230 [place], [place] [phone] Kristy Wilder MD 230 [place], [place] [phone] PT-1 Social History Tobacco Use Types Packs/Day Years Used Date Smoking Tobacco: Never Passive Smoke Exposure: Never Smokeless Tobacco: Never Alcohol Use Standard Drinks/Week Comments Never 0 (1 standard drink = 0.6 oz pur e alcohol) Depression Answer Date Recorded Patient Health Questionnaire-9 Score 16 10/19/2024 Patient Health Questionnaire-9 Score 16 10/19/2024 Last PHQ-9: Questionnaire Data Not on file 0 10/19/2024 Housing Stability Answer Date Recorded What is your housing situation today? I have kenton leighann 09/20/[address] you li [...] Date Recorded Patient Health Questionnaire-2 Score 6 10/19/2024 Internet Access Answer Date Recorded Internet Access [...] Telephone Encounter - Juan Manuel Travis - 12/31/2024 10:38 AM EDT Patient calling requesting PT1 Home Address verified: Y/N: Yes Provider name or facility name: [facility] Facility Address: [address] [place] [address] Escort needed: Y/N: Yes Do you have a wheelchair: Y/N: No If yes- Manual or electric: N/A Visits: 3 times a month documented in this encounter Plan of Treatment Upcoming Encounters Date Type Department Care Team ([facility] Contact Info) Description 02/22/2025 2:00 PM EDT Clinical Support [facility] CHC MED & PEDS 505 [place] [address] Colette Diop RN 505 [place] [address] 03/08/2025 10:45 AM EDT Office Visit [facility] MEDICINE [address] [place] [address] Kristy Wilder MD 230 [place] [address] 04/15/2025 2:30 PM EST Office Visit [facility] OPTOMETRY [address] [place], [place] [phone] Yvonne Miller, OD 230 [place] [address] documented as of this encounter Visit Diagnoses Not on filedocumented in this encounter Additional Health Concerns Assessment Noted Time PHQ-9 Depression Total Score: 16 025 2:11 PM EDT documented as of this encounter Care Teams Cream Cheese Maker Relationship Specialty Start Date End Date Kristy Wilder MD 230 [place] [address] PCP - General Internal Medicine 12/26/22 Bradly Gonzalez MD [address] [facility] [address] [place] [address] Vascular Surgery 07/17/22 Rk Smith 100 [facility] [address] [place] [address] Otolaryngology 01/14/25 Buck Hess DPM 175 [facility] [address] [place] [address] Podiatry 01/14/25 Evita Hanna Unit EducatorHead Of Mobile 11/04/24 [facility] CORE 575 [facility] [address] Physical Therapy 07/17/22 documented as of this encounter
--- OUTSIDE RECORDS SUMMARY | 2025-02-17 17:27 | XMS_ITS | Clinical Summary ---
Author Organization [facility] Address [address] [place] [address] Care Team Providers Care Regulatory Scientist Name Role Phone Unavailable Primary Care Provider Unavailabl e Source Comments PLEASE NOTE, if this patient is a minor, it may be UNLAWFUL to discuss sensitive information that is contained in these records (such as FAMILY PLANNING, MENTAL HEALTH or SUBSTANCE ABUSE) with the minor patient's parent or other person without the patient's specific authorization.[facility] Social History Tobacco Use Types Packs/Day Years Used Date Smoking Tobacco: Never Assessed Comments Unknown Sex and Gender Information Value Date Recorded Sex Assigned at Female 01/24/2025 1:05 PM PDT Legal Sex Female 1:05 PM PDT Gender Identity Female 01/24/2025 1:05 PM PDT Sexual Orientation Not on file Plan of Treatment Upcoming Encounters Date Type Department Care Team (Late st Contact Info) Description 03/08/2025 12:00 PM EDT Behavioral Health Visit [facility] [address] [place] [address] [place]OS [phone] Tono Zelaya, HNP [address] [facility] [place] [phone] Health Maintenance Due Date Last Done Comments Anxiety Screening 1967 HPV Screening 1967 Pap + HPV 1967 Tobacco Screening 1967 Hypertension Screening (#1) 1985 Cervical Cancer Screening 1988 Pap Smear 1988 Breast Cancer Screening (Mammogram) 2007 CT Colonography 2012 Colonoscopy 2012 Colorectal Cancer Screening 2012 FIT/gFOBT 2012 Fecal DNA 2012 Flexible Sigmoidoscopy 2012 Alcohol and Drug Screen 06/09/2024 Depression Annual Screen 06/09/2024 [id number] ( season) 2025 05/14/2022, 05/27/2021, 09/22/2020, Additional history exists Imm-Influenza (#1) 2025 03/11/2023, 1 07/15/2021, 05/27/2021 Diabetes Screening 12/23/2027 12/22/2024, 0 12/22/2024, 12/22/2024 Imm-DTaP/Tdap/Td (2 - Td or Tdap) 04/09/2029 019 Lipid Screening 12/22/2029 12/22/2024 Imm-Zoster, Recombinant Completed 12/31/2021, 09/06 Imm-Pneumococcal 50+ Completed 03/11/2023, 04/09/20 Imm-Hepatitis B Completed 03/02/2024, 08/08, 08/01/2023 HIV Screening Completed 12/22/2024, 12/22/2024 Hepatitis C Screening Completed 12/22/2024 Cervical Ablation/Cold-Knife Conization Discontinued Cervical Cryotherapy Discontinued Colposcopy Discontinued Endometrial Biopsy Discontinued Excision/Leep Discontinued HPV Genotyping Discontinued Vaginal Pap Discontinued Vulvoscopy Discontinued Insurance [facility]
--- OUTSIDE RECORDS SUMMARY | 2025-02-17 17:27 | XMS_ITS | Encounter Summary ---
Author Organization [employer] Address 75 [facility] 7t [place] [address] Care Team Providers Care Entry Processor Name Role Phone Kristy Wilder MD Primary Care Pro vider Bradly Gonzalez MD Unavailable Rk Smith Unavailable Buck Hess DPM Unavailable [phone] Reason for Visit * Reason Onset Date [...] (Late st Contact Info) Description 02/11/2023 Refill [facility] MEDICINE 230 [place], [place] [phone] Kristy Wilder MD 230 [place], [place] [phone] Primary insomnia; Chronic low back pain, unspecified [...] Description 02/22/2025 2:00 PM EDT Clinical Support [facility] CHC MED & PEDS 505 [place] [address] Colette Diop, BRICE 505 [place] [address] 03/08/2025 10:45 AM EDT Office Visit [facility] MEDICINE 230 [place] [address] Kristy Wilder MD 230 [place] [address] 04/15/2025 2:30 PM EST Office Visit [facility] OPTOMETRY [address] [place] [address] Yvonne Miller, OD 230 [place] [address] documented as of this encounter Visit Diagnoses Diagnosis Primary insomnia Persistent disorder of initiating or maintaining sleep Chronic low back pain, unspecified back pain laterality, unspecified whether sciatica present documented in this encounter Additional Health Concerns Assessment Noted Time PHQ-9 Depression Total Score: 11 022 1:16 PM EST documented as of this encounter Care Teams Entry Processor Relationship Specialty Start Date End Date Kristy Wilder MD [address] [place] [address] PCP - General Internal Medicine 12/26/22 Bradly Gonzalez MD [address] [place] [address] Vascular Surgery 07/17/22 Rk Smith [address] [place], [place] [address] Otolaryngology 01/14/25 Buck Hess DPM 175 [facility] [address] [place] [address] Podiatry 01/14/25 Evita Hanna Product Delivery SpecialistAcademic Services Professional 11/04/[address] [address] Physical Therapy 07/17/22 documented as of this encounter
--- OUTSIDE RECORDS SUMMARY | 2025-02-17 17:27 | XMS_ITS | Encounter Summary ---
Author Organization [employer] Address [address] [facility] 7t [place] [address] Care Team Providers Care Compressor Operator Portable Name Role Phone Kristy Wilder MD Primary Care Pro vider Bradly Gonzalez MD Unavailable Rk Smith Unavailable Buck Hess DPM Unavailable [phone] Reason for Visit * Reason Onset Date Comments Nurse Triage 08/08/2023 Encounter Details Date Type Department Care Team (Late st Contact Info) Description 08/08/2023 Telephone [facility] MEDICINE [address] [place], [place] [phone] Kristy Wilder MD [address] [place] [address] Nurse Triage Social History Tobacco Use Types [...] EST Triage call returned to patient with [place] Lacing String Cutter [id number]. Patient with soft voice and weakness. Received [...] to access 911 EMS for transport to [facility] ( followed by Oncologist) there. PCP [...] accepted this outcome Please contact pt at [phone] (Zimbabwean) documented in this encounter Plan of Treatment Upcoming Encounters Date Type Department Care Team (Late st Contact Info) Description 02/22/2025 2:00 PM EDT Clinical Support [facility] CHC MED & PEDS [address] [place] [address] Colette Diop, BRICE [address] [place] [address] 03/08/2025 10:45 AM EDT Office Visit [facility] MEDICINE [address] [place] [address] Kristy Wilder MD [address] [place] [address] 04/15/2025 2:30 PM EST Office Visit [facility] OPTOMETRY [address] [place] [address] Paul, Yvonne, OD [address] [place] [address] documented as of this encounter Visit Diagnoses Not on filedocumented in this encounter Additional Health Concerns Assessment Noted Time PHQ-9 Depression Total Score: 16 023 11:20 AM EDT documented as of this encounter Care Teams Compressor Operator Portable Relationship Specialty Start Date End Date Kristy Wilder MD [address] [place] [address] PCP - General Internal Medicine 12/26/22 Bradly Gonzalez MD [address] [place] [address] Vascular Surgery 07/17/22 Rk Smith 100 [facility] [address] [place], [place] [address] Otolaryngology 01/14/25 Buck Hess DPM [address] [place] [address] Podiatry 01/14/25 Evita Hanna Manager Of CompensationLining Maker Hand 11/04/[address] [address] Physical Therapy 07/17/22 documented as of this encounter
--- OUTSIDE RECORDS SUMMARY | 2025-02-17 17:28 | XMS_ITS | Encounter Summary ---
Author Organization [facility] Address [address] [place] [address] Care Team Providers Care Brick Handler Name Role Phone Davon Wu Primary Care Provider [phone] Encounter Details Date Type Department Care Team (Late st Contact Info) Description 10/31/2020 Orders Only [facility] Xray [address] [place] [address] Winifred Winston MD [address] [place], [place] [phone] Social History Tobacco Use Types Packs/Day Years [...] on filedocumented in this encounter Care Teams Brick Handler Relationship Specialty Start Date End Date Davon Wu [address] [place] [address] PCP - General Internal Medicine 09/28/18 documented as of this encounter
--- OUTSIDE RECORDS SUMMARY | 2025-02-17 17:28 | XMS_ITS | Clinical Summary ---
Author Organization [facility] Address [address] [place] [address] Care Team Providers Care Automobile Spring Repairer Name Role Phone Bryce Rufustaijuice Partha Primary Care Provider [phone] Allergies Active Allergy Reactions Criticality Noted Date Comments Other Rash 02/04/2019 Contax, medication for [place] Medications buPROPion XL (WELLBUTRIN XL) 150 [...] 69 12/19/2020 2:02 PM EDT Temperature 36.6 C (97.9 F) 02/09/2019 12:06 PM EDT Respiratory Rate 18 02/09/2019 12:0 6 PM EDT Oxygen Saturation 95% 02/09/2019 12: 06 PM EDT Inhaled Oxygen Concentration - - Weight 92.5 kg (203 lb 14.8 oz) 019 12:00 PM EDT Height 165.1 cm (5' 5 ) 02/09/2019 12:0 0 PM EDT Body Mass Index 33.93 02/09/2019 12:00 PM EDT Plan of Treatment Health Maintenance Due Date Last Done Comments Cologuard 1967 Colon Cancer Screening 1967 Colonoscopy 1967 FOBT / Fit Test 1967 HIV Screening 1967 Sigmoidoscopy 1967 Hepatitis B Vaccines (1 of 3 - 19+ 3-dose series) 03/09 Zoster Vaccines (1 of 2) 2017 Pneumococcal Vaccine: 50+ Ye ars (2 of 2 - PCV20 or PCV21) 04/09/2020 04/09/2019 Alcohol/Substance Use Screening 06/09/2024 Influenza Vaccine (#1) 2025 DTaP,Tdap,and Td Vaccines (2 - Td or Tdap) 04/09/2029 04/09/2019 RSV Vaccine (60+ years old a nd patients) (1 - 1-dose 75+ series) 2042 Medical Devices Implanted Type Area Bromination Equipment Operator Device Identifier Shelf Expiration Date Model / Serial / Lot System Closure Suture Medicated Perclose Proglide 6fr - [id number] Implanted:Qty: 1 on 02/04/2019 at [facility] Implant [employer] [id number] 126 73-03 / / Coil Embolization Neurovascular Ruby 0.035in [id number] Tornado - [id number] Implanted:Qty: 1 on 02/04/2019 at [facility] Implant [employer] [id number] 10/11/19 23 [id number] / / [id number] Coil Embolization Neurovascular Ruby 0.035in [id number] Tornado - [id number] Implanted:Qty: 1 on 02/04/2019 at [facility] Implant [employer] [id number] 08/03/19 24 [id number] / / [id number] Coil Embolization Neurovascular Ruby 0.035in [id number] Tornado - [id number] Implanted:Qty: 1 on 02/04/2019 at [facility] Implant [employer] [id number] 08/03/19 24 [id number] / / [id number] Coil Embolization Neurovascular Ruby 0.035in [id number] Tornado - [id number] Implanted:Qty: 1 on 02/04/2019 at [facility] Implant [employer] [id number] 08/03/19 24 [id number] / / [id number] Insurance Care Teams Automobile Spring Repairer Relationship Specialty Start Date End Date Davon Wu [address] [place] [address] PCP - General Internal Medicine 09/28/18
--- OUTSIDE RECORDS SUMMARY | 2025-02-17 17:28 | XMS_ITS | Encounter Summary ---
Author Organization [employer] Address [address] [facility] 7 [place] [address] Care Team Providers Care Information Clerk Brokerage Name Role Phone Khloe Fonseca WRAP YARN SORTER Primary Care Provider Kristy Rign MD Primary Care Pro vider Bradly Gonzalez MD Unavailable Rk Smith Unavailable Buck Hess DPM Unavailable [phone] Encounter Details Date Type Department Care Team (Late st Contact Info) Description 12/09/2022 Abstract [facility] MEDICINE [address] [place] [phone] Khloe Fonseca FNP Social History Tobacco Use Types Packs/Day Years [...] Clinical Support [facility] CHC MED & PEDS [address] [place] [address] Colette Diop, BRICE [address] [place] [address] 03/08/2025 10:45 AM EDT Office Visit [facility] MEDICINE [address] [place] [address] [phone] Kristy Wilder MD [address] [place], [place] [phone] 04/15/2025 2:30 PM EST Office Visit [facility] OPTOMETRY [address] [place], [place] [phone] Yvonne Miller, OD [address] [place] [address] documented as of this encounter Visit Diagnoses Not on filedocumented in this encounter Additional Health Concerns Assessment Noted Time PHQ-9 Depression Total Score: 11 022 1:16 PM EST documented as of this encounter Care Teams Information Clerk Brokerage Relationship Specialty Start Date End Date Khloe Fonseca FNP PCP - General Family Medicine 02/05/22 12/25/22 Kristy Wilder MD [address] [place] [address] PCP - General Internal Medicine 12/26/22 Bradly Gonzalez MD [address] [place] [address] Vascular Surgery 07/17/22 Rk Smith 100 [facility] [address] [place] [address] Otolaryngology 01/14/25 Buck Hess DPM [address] [facility] [address] [place] [address] Podiatry 01/14/25 Evita Hanna Garden ConsultantLine Crewman 11/04/24 [facility] CORE [address] [place] [address] Physical Therapy 07/17/22 documented as of this encounter
--- OUTSIDE RECORDS SUMMARY | 2025-02-17 17:28 | XMS_ITS ---
Author Organization [facility] Address [address] [place] [address] Care Team Providers Care Finishing Pan Operator Name Role Phone Davon Wu Primary Care Provider [phone] Active Problems Problem Noted Date Diagnosed Date [...]
== END 2025-02-17 13:35 | disposition home or self-care (01) ==
LOC: HO.LAB 13:34
PROVIDERS: PCP Student in an Organized Health Care Education/Training Program; Visit Provider Student in an Organized Health Care Education/Training Program
DX: Z13.89 Encounter for screening for other disorder (principal)

== ENCOUNTER 2025-03-30 13:59 | Inpatient (IN) | payer OTHER, SELFPAY ==
--- OUTSIDE RECORDS SUMMARY | 2025-03-25 18:43 | XMS_ITS | Encounter Summary ---
Author Organization [facility] Address [address] [place] [address] Care Team Providers Care Merry Go Round Operator Name Role Phone Physician, No Pcp Primary Care Provider Unavaila ble Reason for Visit * Reason Comments Suicide Attempt Overdosed unknown am ount of oxycodone & Zolpidem Encounter Details Date Type Department Care Team (Late st Contact Info) Description 2025 6:43 PM EDT - 03/30/2025 1:41 PM EDT Emergency [facility] Emergency [address] [place] [address] Zoie Florentino MD [address] [place] [id number] Benny Ball MD [address] [place] [address] Ayden Vera MD [address] [place] [address] Sonia Evangelista MD [address] [place] [address] Bryson Sinha MD [address] [address] Everardo Gray MD [address] [place] [address] Alpesh Arias MD [address] [place] [address] Ken Almaraz MD [address] [place] [address] Medication overdose, intentional self-harm, initial encounter ([facility] V24, [facility] V28) (Primary Dx) Discharge Disposition: [facility] [...] 8:01 PM EDT Diego Caballero RN * Calculated C-SSRS Risk Score (Lifetime/Recent) Answer Date of Assessment Author High Risk 03/30/2025 10:00 AM Cris Collins RN * [place] Suicide Severity Rating Scale (Screener/Recent Self-Report) Question [...] Disposition Code Departure Means Destination Comment s [facility] documented in this encounter Progress Notes * Aisha Lyons LCSW - 03/30/2025 11:29 AM EDT BED FOUND- Patient accepted to [facility], by Dr. Garcia, they are requesting and [...] 0245 Medication overdose, intentional self-harm, initial encounter ([facility] V24, [facility] V28) Send to Specialty Department 1. Medication overdose, intentional self-harm, initial encounter ([facility] V24, [facility] V28) Procedures Krys Travis * Bryson Sinha [...] 0729 Medication overdose, intentional self-harm, initial encounter ([facility] V24, [facility] V28) Send to Specialty Department 1. Medication overdose, intentional self-harm, initial encounter ([facility] V24, [facility] V28) Procedures * Sonia Evangelista MD - [...] 0803 Medication overdose, intentional self-harm, initial encounter ([facility] V24, [facility] V28) No orders to display Labs Reviewed [...] Procedure Abnormality Status --------- ------ CBC auto differential[[id number]] Abnormal Final result Please view results for these tests on the individual orders. Clinical Impression(s): Final diagnoses: [T50.902A] Medication overdose, intentional self-harm, initial encounter ([facility] V24, [facility] V28) Send to Specialty Department Previous Medications [...] PATIENT AND HAD A CONVERSATION WITH SCREEN CUT OUT WORKER. PT UPSET ABOUT THE FOOD AND THAT [...] 0615 Medication overdose, intentional self-harm, initial encounter ([facility] V24, [facility] V28) No orders to display Labs Reviewed [...] Procedure Abnormality Status --------- ------ CBC auto differential[[id number]] Abnormal Final result Please view results for these tests on the individual orders. Clinical Impression(s): Final diagnoses: [T50.812A] Medication overdose, intentional self-harm, initial encounter ([facility] V24, [facility] V28) Send to Specialty Department Previous Medications [...] do med rec on patient, pharmacy at [facility] is not open at this time. Patient [...] EDT Patient sister requesting to speak with staffing operations manager at this time about patient not having opportunity to use book canvasser last night when patient was given injection. Cahpis Barrios notified at this time. * Grace Godinez - 03/26/2025 12:01 PM EDT Pt sister Brit at bedside at this time. Pt sister requesting to speak to nurse staffing operations manager due to concerns of her sister's care upon arrival. Pt states in belarusian my hip hurts where they gave me an injection, I would never be aggressive towards anyone . BRICE West Notified. Grace Godinez 03/26/25 1206 * Rebekah Coe RN - 03/26/2025 10:30 AM EDT Patient states she uses [facility]. Pharmacy is closed until Friday morning, [...] Pcp Physician Patient : 1965 Patient Department: [facility] EMERGENCY [address] [facility] [address] Dept: [phone] Triage Chief Complaint: Suicide Attempt (Overdosed unknown amount of oxycodone & Zolpidem ) History of Present Illness: History obtained with help of [employer] book canvasser as patient is Beninese-speaking. 60-year-old female with history of metastatic cancer [...] 03/28/25614 Medication overdose, intentional self-harm, initial encounter ([facility] V24, [facility] V28) Medications LORazepam (ATIVAN) injection 2 mg (2 mg intramuscular Given 03/26/256) midazolam (VERSED) injection 5 mg (5 mg intramuscular Given 03/26/256) Clinical Impression(s): Final diagnoses: [T50.902A] Medication overdose, intentional self-harm, initial encounter ([facility] V24, [facility] V28) Disposition: Send to Specialty Department Physical [...] Procedure Abnormality Status --------- ------ CBC auto differential[[id number]] Abnormal Final result Please view results for [...] information: Insurance: Be Healthy Verified by: [employer] [place] - Aisha Lyons Reason for Consultation / Presenting Problem: Krys Travis is being seen today for a 24hour re-evaluation due to their state wide bed search being exhausted. S utilized hospital book canvasser, Manuel, in order to complete assessment. Patient reported that she is feeling well and wouldlike to go home. [facility] informed patient that she is unable to [...] Content: WNL SI: Denied - Arrived to [facility] due to an intentional overdose on medications [...] to assist Krys Travis here at [facility]. This report is written and finalized by: Kenn Servin Behavioral Health Specialist [facility] (Tel): [phone] / : [phone] [1] apixaban, 5 mg, oral, BID levothyroxine, 75 mcg, oral, q AM AC mirtazapine, 30 mg, oral, Nightly oxyCODONE, 5 mg, oral, BID propranoloL, 10 mg, oral, BID [2] [3] PRN medications: LORazepam, zolpidem * Dionna Eldridge - 03/28/2025 10:51 AM EDTAssociated Order(s): IP CONSULT TO LICENSED OPTICIAN Images from the original note were not included. Behavioral Health Services - Mental Status Update Important times Time assessment started: 03/28/25 10:00 am Time of disposition: 03/28/25 10:30 am Location: [facility] Emergency Room Consulted case with: Aisha Lyons [...] a mental status update. Krys is a Beninese Speaking female and an interpretor was used. [...] Therapist: MIRNA waiting for a new therapist [phone] Psychiatrist: MIRNA Wilson [phone] PCP: Unknown Family: Sister Brit Travis [phone] Mental Status Speech: WNL Eye Contact: WNL [...] to assist Krys Travis here at [facility]. This report is written and finalized by: Dionna Eldridge MS Behavioral Health Specialist [facility] (Tel): [phone] / : [phone] [1] apixaban, 5 mg, oral, BID levothyroxine, [...] Insurance: Unable to verify due to [employer] [place] being unavailable. Insurance ID: Verified by: Reason for Consultation / Presenting Problem: Krys Travis is being seen today for a 24hour re-evaluation due to their state wide bed search being exhausted. S utilized video book canvasser to complete assessment. Patient was eating cristiana [...] struggles because she does not have a BACK TENDER to support her in the home. [...] practical supports at home, such as a BACK TENDER. Upon discharge, patient would benefit from a follow-up appointment with outpatient mental health providers. Recommendations were discussed with requesting provider. It was a pleasure to assist Krys Matias Travis here at [facility]. This report is written and finalized by: Kenn Servin Behavioral Health Specialist [facility] (Tel): [phone] / : [phone] [1] apixaban, 5 mg, oral, BID levothyroxine, 75 mcg, oral, q AM AC mirtazapine, 30 mg, oral, Nightly oxyCODONE, 5 mg, oral, BID propranoloL, 10 mg, oral, BID [2] [3] PRN medications: LORazepam, zolpidem * Jemima Lucas [facility] - 03/26/2025 5:47 PM EDT Images from the original note were not included. Behavioral Health Services - Crisis Assessment Important times Time of arrival: 6:43 PM 2025 Time of referral: 12:46 PM 03/26/2025 Time of readiness: 1:00 PM 03/26/2025 Time assessment started: 1:30 PM 03/26/2025 Time of disposition: 3:00 PM 03/26/2025 Location: [facility] Yellow Room 22 Consulted case with: Kristy Lopez [facility] Insurance information: Unable to verify insurance due to [employer] [place] being down. Insurance: Insurance ID: Verified by: Reason for Consultation / Presenting Problem: Krys Travis is being seen today for a consultive service at the request of Ayden Vera MD to assess risk and identify appropriate level of care. Krys arrived at [facility] on 03/25/25 via EMS from home after being found by her family on the floor and they called 911. Yesterday was Krys 60th birthday. It was reported that Krys attempted suicide by taking an unknown amount of Oxycodone and Zolpidem. Krys was giving IV Narcan by EMS. During the crisis evaluation Krys was engaging she reported life stressor and fighting cancer for the past3- years. Her relationship with family and four children has been strained for the last couple of years. She reported history of anxiety and depression she does not have therapist or psychiatrist. She then reported that she had a therapist through [facility] named Sada Taylor. Her insight and judgement were poor. She was oriented X4. History of Present Illness: Krys is a 60 y.o. female with Chief Complaint Patient presents with Suicide Attempt Overdosed unknown amount of oxycodone & Zolpidem Social/Educational History: Guardian - if Yes, provide contact information: Self [place] Status: n/a State Agency Involvement: n/a [place] [...] currently PCP: Unknown Family: Sister Brit Travis [phone] This clinician spoke with Krys's sister Brit [...] sons and three of them reside in [place] and they can't visit her often because they work. She has one son that lives in [place], and he tries his best to visit her when he is not working. Brit tried to help her sister, but she pushed the family away. She is currently doing chemo at home and every and at the chemo clinic. Sister has come to visit her while she's at [facility]. Sister would like us to keep her in the loop on her sister status. Mental Status Speech: Slowed / Beninese speaking Eye Contact: WNL Motor Activity: Restless [...] Plan Completed: no Krys will remain at [facility] ED until a [facility] bed is secure. Interventions: -Validating [...] to assist Krys Travis here at [facility]. This report is written and finalized by: TERESA Wells Behavioral Health Specialist [facility] (Tel): [phone] / : [phone] [1] acetaminophen, 650 mg, oral, Once [2] [3] * Brandon Polanco - 2025 10:51 PM EDT The patient has a co-respond from the N/instructor private and the police- he was not assessed. The [facility] clinician reported that the patient was sent into the [facility] ED due to overdosed on unknown amount of oxycodone pills; she has two bottles of 32 pills one was empty and the second missing 4 pills. She previously had 4 SI attempts. 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 Sister's Bárbara Brunson #: [phone] documented in this encounter Plan of Treatment Not on file documented as of this encounter Procedures Procedure Name Priority Date/Time Associated Diagnosis Comments ECG 12-LEAD STAT 03/30/2025 12:59 PM EDT [...] AM EDT METHADONE SCREEN, URINE STAT 03/26/20 9:34 AM EDT PHENCYCLIDINE, URINE STAT 03/26/2025 [...] EDT documented in this encounter Results * ECG 12 lead (03/30/2025 12:59 PM EDT) Ventricular Rate ECG 60 BPM GEMUSE Atrial Rate 60 BPM GEMUSE P-R Interval 198 ms GEMUSE QRS Duration 90 ms GEMUSE Q-T Interval 434 ms GEMUSE QTc 434 ms GEMUSE P Wave [place] 31 degrees GEMUSE R [place] 38 degrees GEMUSE T [place] 47 degrees GEMUSE ECG Interpretation Normal sinus rhythm Normal ECG When compared with ECG of 09-MAY-2024 14:44, No significant change was found Confirmed by Cherie HUERTAS JOHN ([id number]) on 03/30/2025 7:33:50 PM GEMUSE 03/30/2025 12:5 9 PM EDT 03/30/2025 7:33 PM EDT us Zoie Florentino MD ECG ORDERABLES Final Result GEMUSE * POCT Glucose, blood (03/29/2025 8:22 AM EDT) Glucose POCT 85 70 - 100 mg/dL 03/29/2025 8:30 AM EDT [facility] Blood Capillary blood specimen / Unknown 03/29/2025 8:22 AM EDT 03/29/2025 8:31 AM EDT Everardo rGay MD LAB POINT OF CARE TEST DOCKED DEVICE UNSOLICITED RESULTS Final Result Performing Organization Address [facility]/ZIP Co de Phone Number [facility] [address] [place] [address], [place] [phone] * POCT Glucose, blood (03/28/2025 9:05 AM EDT) Glucose POCT 81 70 - 100 mg/dL 03/28/2025 9:22 AM EDT [facility] Blood Capillary blood specimen / Unknown 03/28/2025 9:05 AM EDT 03/28/2025 9:23 AM EDT Benny Ball MD LAB POINT OF CARE TE ST DOCKED DEVICE UNSOLICITED RESULTS Final Result Performing Organization Address [facility]/ZIP Co de Phone Number [facility] [address] [place] [address], [place] [phone] * Activated Partial Thromboplastin Time - STAT (03/26/2025 6:31 PM EDT) aPTT 32.6 24.1 - 39.3 sec LAB COAGULATION METHOD 03/26/2025 7:16 PM EDT [facility] Blood Venous blood specimen / Unknown Venipuncture / Unknown 03/26/2025 6:31 PM EDT 03/26/2025 6:53 PM EDT Ayden Vera MD LAB BLOOD ORDERABLES Shelli l Result [facility] [address] [place] [address], [place] [phone] * Prothrombin Time with INR - STAT (03/26/2025 6:31 PM EDT) [facility] Protime 12.3 10.6 - 13.9 sec LAB COAGULATION METHOD 03/26/2025 7:16 PM EDT [facility] INR 1.0 LAB COAGULATION METHOD 03/26/2025 7:16 PM EDT [facility] Blood Venous blood specimen / Unknown Venipuncture / Unknown 03/26/2025 6:31 PM EDT 03/26/2025 6:53 PM EDT us Ayden Vera MD LAB BLOOD ORDERABLES Shleli l Result [facility] [address] [place] [address], [place] [phone] * (ABNORMAL) Drug abuse screen 8a panel, urine (03/26/2025 9:34 AM EDT) [facility] Amphetamine Screen, Ur Negative Negative LAB CHEMISTRY METHOD 10:50 AM EDT [facility] Comment:Certain OTC medicati ons containing ephedrine, phenylephrine, pseudoephedrine and phenylpropanolamine can cause false positive results. Barbiturate Screen, Ur Negative Negative LAB CHEMISTRY METHOD 5 10:50 AM T [facility] Benzodiazepine Screen, Ur Positive(A ) Negative LAB CHEMISTRY METHOD 5 10:50 AM T [facility] Cocaine Screen, Ur Negative Negative LAB CHEMISTRY METHOD 5 10:50 AM [facility] Opiate Screen, Ur Negative Negative LAB CHEMISTRY METHOD 5 10:50 AM [facility] Cannabinoid (THC) Screen, Ur Negative Negative LAB CHEMISTRY METHOD 5 10:50 AM T [facility] Comment:Specimens from patie nts taking pantoprazole sodium (Protonix) have been shown to produce false positive results. Oxycodone Screen, Ur Negative Negative LAB CHEMISTRY METHOD 10:50 AM EDT [facility] Fentanyl, Ur Negative Negative LAB CHEMISTRY METHOD 10:50 AM EDT [facility] Urine Urine specimen obtained by clean catch procedure / Unknown Non-blood Collection / Unknown 03/26/2025 9:34 AM EDT 03/26/2025 10:15 AM EDT Narrative [facility] - 03/26/2025 10:50 AM EDT Assay cutoffs: Amphetamines 1000 ng/mL Barbiturates 200 ng/mL Benzodiazepines 200 ng/mL Cocaine 300 ng/mL Fentanyl 1 ng/mL Opiates 300 ng/mL Oxycodone 100 ng/mL THC 50 ng/mL Semi-quantitative assay for screening purposes only. Unconfirmed screening result should not be used for non-medical purposes. *ALTERNATE METHOD CONFIRMATION DONE UPON REQUEST ONLY* us Zoie Florentino MD LAB URINE ORDERABLES Final Res ult Performing Organization Address City/[facility]/ZIP Co de Phone Number [facility] [address] [place] [address], [place] [phone] * Methadone, urine (03/26/2025 9:34 AM EDT) [facility] Methadone Screen, Urine Negative Negative LAB CHEMISTRY METHOD 03/26/2025 10:50 AM EDT [facility] Comment: Assay cutoff 300 ng/mL Semi-quantitative assay for screening purposes only. Unconfirmed screening result should not be used for non-medical purposes. *ALTERNATE METHOD CONFIRMATION DONE UPON REQUEST ONLY* Urine Urine specimen obtained by clean catch procedure / Unknown Non-blood Collection / Unknown 03/26/2025 9:34 AM EDT 03/26/2025 10:15 AM EDT us Zoie Florentino MD LAB URINE ORDERABLES Final Res ult Performing Organization Address City/[facility]/ZIP Co de Phone Number [facility] [address] [place] [address], [place] [phone] * Phencyclidine, urine (03/26/2025 9:34 AM EDT) PCP Scrn, Ur Negative Negative LAB CHEMISTRY METHOD 03/26/2025 10:56 AM EDT [facility] Comment: Assay cutoff 25 ng/mL Semi-quantitative assay for screening purposes only. Unconfirmed screening result should not be used for non-medical purposes. *ALTERNATE METHOD CONFIRMATION DONE UPON REQUEST ONLY* Urine Urine specimen obtained by clean catch procedure / Unknown Non-blood Collection / Unknown 03/26/2025 9:34 AM EDT 03/26/2025 10:15 AM EDT us Zoie Florentino MD LAB URINE ORDERABLES Final Res ult Performing Organization Address [facility] de Phone Number [facility] [address] [place] [address], * Buprenorphine screen, urine (03/26/2025 9:34 AM EDT) Buprenorphine Screen Urine Negative Negative LAB CHEMISTRY METHOD 03/26/2025 10:50 AM EDT [facility] Urine Urine specimen obtained by clean catch procedure / Unknown Non-blood Collection / Unknown 03/26/2025 9:34 AM EDT 03/26/2025 10:15 AM EDT Narrative [facility] - 03/26/2025 10:50 AM EDT Assay cutoff 5 ng/mL Semi-quantitative assay for screening purposes only. Unconfirmed screening result should not be used for non-medical purposes. *ALTERNATE METHOD CONFIRMATION DONE UPON REQUEST ONLY* us Zoie Florentino MD LAB URINE ORDERABLES Final Res ult Performing Organization Address [facility]/ZIP Co de Phone Number [facility] [address] [place] [address], * (ABNORMAL) Magnesium (2025 9:44 PM EDT) Magnesium 1.8(L) 1.9 - 2.6 mg/dL LAB CHEMISTRY METHOD 03/26/2025 12:17 AM EDT [facility] Blood Venous blood specimen / Unknown Venipuncture / Unknown 2025 9:44 PM EDT 2025 10:00 PM EDT Zoie Florentino MD LAB BLOOD ORDERABLES Final Res ult Performing Organization Address City/[facility]/ZIP Co de Phone Number [facility] [address] [place] [address], [place] [phone] * (ABNORMAL) Acetaminophen level (2025 9:44 PM EDT) Pathologist [facility] Acetaminophen Level <2.0(L) 10.0 - 30.0 mcg/mL LAB CHEMISTRY METHOD 2025 10:46 PM EDT [facility] Blood Venous blood specimen / Unknown Venipuncture / Unknown 2025 9:44 PM EDT 2025 10:00 PM EDT Zoie Florentino MD LAB BLOOD ORDERABLES Final Res ult Performing Organization Address City/[facility]/ZIP Co de Phone Number [facility] [address] [place] [address], [place] [phone] * (ABNORMAL) CBC auto differential (2025 9:44 PM EDT) Pathologist [facility] WBC 3.9(L) 4.8 - 10.8 [facility] LAB HEMETOLOGY METHOD 2025 10:07 PM EDT [facility] RBC 3.20(L) 3.80 - 4.80 M/mcL LAB HEMETOLOGY METHOD 2025 10:07 PM EDT [facility] Hemoglobin 10.9(L) 11.5 - 16.0 g/dL LAB HEMETOLOGY METHOD 2025 10:07 PM [facility] Hematocrit 32.6(L) 35.0 - 47.0 % LAB HEMETOLOGY METHOD 2025 10:07 PM [facility] MCV 101.9(H) 79.0 - 98.0 FL LAB HEMETOLOGY METHOD 2025 10:07 PM [facility] MCH 34.1(H) 27.0 - 32.0 pcg LAB HEMETOLOGY METHOD 2025 10:07 PM [facility] MCHC 33.4 32.0 - 37.0 g/dL LAB HEMETOLOGY METHOD 2025 10:07 PM [facility] RDW 13.0 11.0 - 15.0 % LAB HEMETOLOGY METHOD 2025 10:07 PM [facility] Platelets 147 130 - 400 K/mcL LAB HEMETOLOGY METHOD 2025 10:07 PM [facility] MPV 10.0 7.0 - 11.0 FL LAB HEMETOLOGY METHOD 2025 10:07 PM [facility] NRBC 0.0 <1.0 % LAB HEMETOLOGY METHOD 2025 10:07 PM [facility] NRBC Absolute 0.00 <0.10 K/mcL LAB HEMETOLOGY METHOD 2025 10:07 PM [facility] Neutrophils Relative 72.5 % LAB HEMETOLOGY METHOD 2025 10:07 PM [facility] Lymphocytes Relative 16.8 % LAB HEMETOLOGY METHOD 2025 10:07 PM [facility] Monocytes Relative 8.8 % LAB HEMETOLOGY METHOD 2025 10:07 PM EDT [facility] Eosinophils Relative 1.3 % LAB [facility]OLOGY [facility]25 10:07 [facility] Basophils Relative 0.3 % LAB [facility]OLOGY [facility] 2025 10:[facility] Immature Granulocytes Relative 0.3 % LAB HEMETOLOGY METHOD 2025 10:07 PM EDT [facility] Neutrophils Absolute 2.80 1.50 - 7.00 K/mcL LAB HEMETOLOGY METHOD 2025 10:[facility] Lymphocytes Absolute 0.65(L) 1.00 - 5.00 K/mcL LAB HEMETOLOGY METHOD 2025 10:07 PM [facility] Monocytes Absolute 0.34 0.20 - 1.00 K/mcL LAB HEMETOLOGY METHOD 2025 10:07 PM EDT [facility] Eosinophils Absolute 0.05 0.00 - 0.50 K/mcL LAB HEMETOLOGY METHOD 2025 10:07 PM [facility] Basophils Absolute 0.01 0.00 - 0.20 K/mcL LAB HEMETOLOGY METHOD 2025 10:07 PM [facility] Immature Granulocytes Absolute 0.01 0.00 - 0.03 K/mcL LAB HEMETOLOGY METHOD 2025 10:07 PM T [facility] Blood Venous blood specimen / Unknown Venipuncture / Unknown 2025 9:44 PM EDT 2025 10:00 PM EDT us Zoie Florentino MD LAB BLOOD ORDERABLES Final Res ult [facility] [address] [place] [address], [place] [phone] * (ABNORMAL) Salicylate level (2025 9:44 PM EDT) Salicylate Level <1.7(L) 2.0 - 29.0 mg/dL LAB CHEMISTRY METHOD 2025 10:47 PM EDT [facility] Blood Venous blood specimen / Unknown Venipuncture / Unknown 2025 9:44 PM EDT 2025 10:00 PM EDT us Zoie Florentino MD LAB BLOOD ORDERABLES Final Res ult Performing Organization Address [facility]/ZIP Co de Phone Number [facility] [address] [place] [address], [place] [phone] * Ethanol (2025 9:44 PM EDT) Ethanol Level <3 0 - 10 mg/dL LAB CHEMISTRY METHOD 2025 10:47 PM EDT [facility] Blood Venous blood specimen / Unknown Venipuncture / Unknown 2025 9:44 PM EDT 2025 10:00 PM EDT us Zoie Florentino MD LAB BLOOD ORDERABLES Final Res ult [facility] [address] [place] [address], [place] [phone] * (ABNORMAL) Acetaminophen level (2025 9:44 PM EDT) Acetaminophen Level 3.8(L) 10.0 - 30.0 mcg/mL LAB CHEMISTRY METHOD 2025 10:47 PM EDT [facility] Blood Venous blood specimen / Unknown Venipuncture / Unknown 2025 9:44 PM EDT 2025 10:00 PM EDT us Zoie Florentino MD LAB BLOOD ORDERABLES Final Res ult Performing Organization Address [facility]/ZIP Co de Phone Number [facility] [address] [place] [address], [place] [phone] * Thyroid stimulating hormone with reflex to free t4 and free t3 (2025 9:44 PM EDT) Pathologist [facility] TSH 2.35 0.40 - 4.00 mcIU/mL LAB CHEMISTRY METHOD 2025 11:20 PM EDT [facility] Blood Venous blood specimen / Unknown Venipuncture / Unknown 2025 9:44 PM EDT 2025 10:00 PM EDT us Zoie Florentino MD LAB BLOOD ORDERABLES Final Res ult Performing Organization Address [facility]/ZIP Co de Phone Number [facility] [address] [place] [address], [place] [phone] * (ABNORMAL) Comprehensive metabolic panel (2025 9:44 PM EDT) [facility] Sodium 145 133 - 145 mmol/L LAB CHEMISTRY METHOD 2025 10:48 PM EDT [facility] Potassium 3.6 3.5 - 5.5 mmol/L LAB CHEMISTRY METHOD 2025 10:48 PM EDT [facility] Chloride 113(H) 96 - 110 mmol/L LAB CHEMISTRY METHOD 2025 10:48 PM EDT [facility] CO2 27 21 - 32 mmol/L LAB CHEMISTRY METHOD 2025 10:48 PM EDT [facility] Anion Gap 5 3 - 11 LAB CHEMISTRY METHOD 2025 10:48 PM EDT [facility] Glucose 91 70 - 100 mg/dL LAB CHEMISTRY METHOD 2025 10:48 PM [facility] BUN 9 5 - 25 mg/dL LAB CHEMISTRY METHOD 2025 10:48 PM [facility] Creatinine 0.70 0.50 - 1.10 mg/dL LAB CHEMISTRY METHOD 2025 10:48 PM [facility] eGFR 100 >=60 mL/min/1. 73m2 LAB CHEMISTRY METHOD 2025 10:48 PM [facility] Comment:Calculation based on the Chronic Kidney Disease Epidemiology Collaboration (CKD-EPI) equation refit without adjustment for race. BUN/Creatinine Ratio 12.9 LAB CHEMISTRY METHOD 2025 10:48 PM [facility] Calcium 7.9(L) 8.5 - 10.5 mg/dL LAB CHEMISTRY METHOD 2025 10:48 PM [facility] AST (SGOT) 22 10 - 42 unit/L LAB CHEMISTRY METHOD 2025 10:48 PM [facility] ALT (SGPT) 24 10 - 60 unit/L LAB CHEMISTRY METHOD 2025 10:48 PM [facility] Alkaline Phosphatase 56 42 - 121 unit/L LAB CHEMISTRY METHOD 2025 10:48 PM [facility] Total Protein 5.2(L) 6.0 - 8.0 g/dL LAB CHEMISTRY METHOD 2025 10:48 PM [facility] Albumin 3.0(L) 3.2 - 5.0 g/dL LAB CHEMISTRY METHOD 2025 10:48 PM [facility] Total Bilirubin 0.4 0.0 - 1.4 mg/dL LAB CHEMISTRY METHOD 2025 10:48 PM [facility] Blood Venous blood specimen / Unknown Venipuncture / Unknown 2025 9:44 PM EDT 2025 10:00 PM EDT us Zoie Florentino MD LAB BLOOD ORDERABLES Final Res ult [facility] [address] [place] [address], documented in this encounter Visit Diagnoses Diagnosis Medication overdose, intentional self-harm, initial encounter ([facility] V24, [facility] V28)- Primary documented in this encounter Administered [...] at 2351, For 1 dose, Created by cabinet override Prior to IV use, lorazepam injection should [...] at 2350, For 1 dose, Created by cabinet override midazolam (VERSED) injection 5 mg 5 mg, [...] Fibrillation 0912 (Given - Provider: Faiza Walls RN)2100 (Given - Provider: Cris Dodd RN) 0817 (Given - Provider: Ladonna Sandoval, BRICE)2009 (Given - Provider: France Cotne, BRICE) 08 (Given - Provider: Cris Mcgovern RN) levothyroxine (SYNTHROID, LEVOTHROID) tablet 75 mcg 75 [...] 0757 (Given - Provider: Faiza Walls RN) 0628 (Given - Provider: Cris Dodd RN) 08 [...] BRICE)2009 (Given - Provider: France Conte, BRICE) 08 (Given - Provider: Cris Mcgovern, BRICE) propranoloL (INDERAL) tablet 10 mg 10 mg, oral, 2 times daily, First dose on 03/26/25 at 1814 0912 (Given - Provider: Faiza Walls RN)2058 (Given - Provider: Cris Dodd RN) 08 (Given - Provider: Ladonna Sandoval, BRICE)2010 (Given - Provider: France Conte RN) 08 (Given - Provider: Cris Mcgovern RN) PRN Medication Order 03/28/2025 03/29/2025 03/30/2025 LORazepam (ATIVAN) tablet 1 mg 1 mg, oral, Nightly PRN, anxiety, Starting on 03/27/25 at 2009 2100 (Given - Provider: Cris Dodd, RN) zolpidem (AMBIEN) tablet 10 mg (COMPLETED) 10 mg, oral, Nightly PRN, sleep, Starting on 03/26/25 at 1900, For 1 dose 2010 (Given - Provider: France Conte, BRICE) documented in this encounter Orders EKG Orders Without Results Count Last Ordered D ate First Ordered Date ECG 12-LEAD 1 03/30/2025 Consult Count Last Ordered Date First Orde red Date IP CONSULT TO LICENSED OPTICIAN 1 2025 documented in this encounter Care Teams Merry Go Round Operator Relationship Specialty Start Date End Date Physician, No Pcp PCP - General 05/09/24 documented as of this encounter
[2025-03-30 14:25] VITALS: BP 99/55; PULSE 64; TEMP 37; O2SAT 99
--- NOTE | 2025-03-30 15:53 | PC.NURSE ---
Pt already received flu immunization this season
[2025-03-30 16:00] VITALS: BMI 28.6
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
[2025-03-30 20:00] VITALS: BP 116/57; PULSE 66; RESP 16; TEMP 36.4; O2SAT 99
--- NOTE | 2025-03-30 20:07 | HO.PSYADMNOT ---
HPI Date of Service: 03/30/25 Chief Complaint: depressive d/o due to another medical condition Sources of Information: patient interviewed, chart reviewed and crisis/core team assessment reviewed HPI Subjective Notes: Conditional Voluntary Narrative: Ms. Matias Travis is a 60 y/o Barbadian speaking Romanian F with h/o depression, anxiety, previous suicide attempts and metastatic clear renal cell carcinoma, s/p nephrectomy in Jan 2019 (on chemotherapy) who was brought to the [facility] ED on 04/04/25 via EMS after she was found unresponsive, following ingestion of unknown amount of oxycodone and zolpidem. Per Crsisis eval, she was given Narcan by EMS. U tox in the ED was positive for benzos (neg for opiates, oxycodone, fentanyl, amphetamine, cocaine and THC). She was transferred to [facility] M3 on a CV for tx of depression and SI after she was medically cleared. Pt interviewed along w/ a server software engineer. She reports that she has been stressed with one of her adult sons, who seems to be coping with some sort of psychiatric issue that she didn't want to disclose for his privacy. She reports that this has been a longstanding issue, which affects her a lot. She has also been depressed due to her medical issues, including metastatic renal cell carcinoma, for which she has undergone a nephrectomy in 2019 and chemotherapy. It sounds like she had gone into remission at some point and then the cancer returned and had spread. She is currently taking a break from chemo but plans to get a CT next month and f/u with her oncologist, who she has seen regularly thru [facility]. Pt has 4 sons, who all live out of state. She has a good relationship with 3 of them and would like to be able to enjoy the one son more but he has a very strong character. Her sister lives locally and is a good support. Depressed mood has been a/w SI, low energy/motivation, decreased interest/pleasure, feelings of hopelessness/helplessness. She endorses situational anxiety and some issues with anger. Denies h/o jose guadalupe or psychosis Denies h/o violence/violent ideation Denies current SI and regrets the overdose Home psychotropic medications include sertraline 100 mg qd and zolpidem 10 mg, the latter of which has been less helpful lately after taking it for several yrs. She asks for a new sleep med since insomnia has negatively impacted her mood. Past Psychiatric History: Current psychiatric provider at [facility] Tx: Sada Taylor Denies previous h/o inpt psychiatric admissions 1 prior suicide attempt a couple yrs ago by hanging in [place], precipitated by stress with her children Medical Evaluation Reviewed: Yes [facility] Medical History Pulmonary nodules Right renal mass Anxiety Depression Clear cell carcinoma of right kidney Surgical History Hx of colonoscopy History of esophagogastroduodenoscopy (EGD) S/P skin biopsy Status post hysterectomy Family History: Unknown Social History: Pt has 4 sons- 2 in [place], 1 in [place] and 1 in [place]. She lives alone. She has a sister, Brit Travis, who lives locally and is supportive. Highest level of education- 5th grade Substance History: denies Trauma History: denies Diagnostics Vital Signs (24Hr): Vital Signs - 24 hr 03/30/25 14:25 Temperature 98.6 F Pulse Rate 64 Blood Pressure 99/55 L Pulse Oximetry 99 Oxygen Delivery Method Room Air BMI result Body Mass Index 28.6 EKG EKG: reviewed Meds/Allergies Meds Home Medications ?Medication ?Instructions ?Recorded ?Confirmed ?Type metformin 500 mg tablet 500 mg PO BID 09/18/20 03/17/25 History lancets 33 gauge (TRUEplus Lancets) #100 ea 04/05/21 03/17/25 History multivitamin 1 tab PO QAM 08/14/23 03/17/25 History naloxone 4 mg/actuation nasal spray 4 mg intranasal DAILY 08/14/23 03/17/25 History Allergies Allergies Allergy/AdvReac Type Severity Reaction Status Date / Time phenylephrine (From CONTAC-D Allergy Unknown EDEMA Verified 03/17/25 13:31 COLD (PE)) morphine Allergy Rash Verified 03/17/25 13:31 Contac-D Allergy Unknown Unknown Uncoded 03/17/25 13:31 Mental Status Exam Mental Status Exam Narrative: Appearance: dressed in [facility]. Grooming/hygiene wnl. Good eye contact Attitude:Cooperative Speech: Fluent and wnl in regard to volume, tone, prosody (Barbadian speaking, utilized law office manager) Motor activity: Calm and without any tics, tremors or dyskinesias. Steady gait Mood: much better Affect: appropriate, reactive, generally bright Thought process: generally goal directed Thought content: Denies current SI, regrets the o/d. Denies violent ideation. Anxious ruminations re: her son and medical issues Perception: Denies AH/VH and does not appear to respond to internal stimuli Alert/oriented in all spheres Cognition grossly intact Insight: fair Judgment:fair Assessment & Plan Assessment & Plan (1) Adjustment disorder with mixed disturbance of emotions and conduct: Status: Acute Code(s): F43.25 - Adjustment disorder with mixed disturbance of emotions and conduct (2) Depressive disorder: Status: Acute Code(s): F32.A - Depression, unspecified (3) Anxiety disorder: Status: Acute Code(s): F41.9 - Anxiety disorder, unspecified (4) Clear cell carcinoma of right kidney: Status: Acute Code(s): C64.1 - Malignant neoplasm of right kidney, except renal pelvis Plan Ms. Matias Travis is a 60 y/o Barbadian speaking Romanian F with h/o depression, anxiety, previous suicide attempts and metastatic clear renal cell carcinoma, s/p nephrectomy in Jan 2019 (on chemotherapy) who was brought to the [facility] ED on 04/04/25 via EMS after she was found unresponsive, following ingestion of unknown amount of oxycodone and zolpidem. Per Crsisis eval, she was given Narcan by EMS. U tox in the ED was positive for benzos (neg for opiates, oxycodone, fentanyl, amphetamine, cocaine and THC). She was transferred to [facility] on a CV for tx of depression and SI after she was medically cleared. Treatment Plan: Admitted to on CV for safety and stabilization 15 min safety checks VS per unit standard Medical H&P done by hospitalist, reviewed. She will consult w/ pt's oncologist, Dr. Erickson Continue sertraline 100 mg qd Taper Ambien from 10 mg to 5 mg qhs due to decreased efficacy after long-term use per pt. She had also o/d'd on it. Start trazodone 50 mg qhs + additional 50 mg qhs prn for insomnia Start risperidone .5 mg qd prn for severe anxiety/agitation off-label Continue other home medications for medical issues Patient educated on: diagnosis, medication risk/benefits and therapeutic strategies Reason for continued inpatient stay Substantial Risk for: harm to self and med/psych decompensation Statement Statement: I have reviewed the history and physical and performed a pertinent examination on my patient. No changes have occurred unless specified. If the History and Physical was not performed prior to admission, the Hospitalist's service will be consulted for completing the admission physical. Time Spent With Patient Time: Total time managing care of this patient today _60___ minutes.
--- OUTSIDE RECORDS SUMMARY | 2025-03-30 20:07 | XMS_ITS ---
Author Organization [employer] Address [address] [place] [address] Care Team Providers Care Supervisor Mail Carriers Name Role Phone Kristy Wilder MD Primary Care Pro vider Bradly Gonzalez MD Unavailable Rk Smith Unavailable Buck Hess DPM Unavailable [phone] Rosanne Mosley Unavailable CHW Complex Status:Outreach In Progress (Enrolling) Start date:03/28/2025 Enrollment reason:ADT Feed Overview CP Assigned Patient ED- Pt went to [facility] ED on 03/25/25. Case Team Name Relationship Phone Rosanne Mosley(Responsible Staff) [phone] Continued Care and Services Coordination
--- OUTSIDE RECORDS SUMMARY | 2025-03-30 20:08 | XMS_ITS | Encounter Summary ---
Author Organization [employer] Address [address] [place] [address] Care Team Providers Care Four Horse Hitch Driver Name Role Phone Kristy Wilder MD Primary Care Pro vider Bradly Gonzalez MD Unavailable Rk Smith Unavailable Buck Hess DPM Unavailable [phone] Rosanne Mosley Unavailable Reason for Visit * Reason Comments Med Refill Encounter Details Date Type Department Care Team (Late st Contact Info) Description 05/15/[address] [facility]IC[facility] [address] [place], [place] [phone] Evelina Freeman MD [address] [place], [place] [phone] Social History Tobacco Use Types Packs/Day Years [...] Care Team (Late st Contact Info) Description 04/15/2025 2:30 PM EST Office Visit [facility] OPTOMETRY [address] [place] [address] Yvonne Miller, OD [address] [place] [address] 04/27/2025 3:00 PM EST Office Visit [facility] ADULT DENTAL [address] [place] [address] Zi Lozano DDS [address] [place] [address] 05/10/2025 1:30 PM EST Clinical Support [facility] [address] [place] [address] 05/16/2025 2:00 PM EST Telemedicine [facility] MED & PEDS [address] [place] [address] Colette Diop, RN [address] [place] [address] documented as of this encounter Visit Diagnoses Not on filedocumented in this encounter Additional Health Concerns Assessment Noted Time PHQ-9 Depression Total Score: 16 023 11:20 AM EDT documented as of this encounter Care Teams Four Horse Hitch Driver Relationship Specialty Start Date End Date Kristy Wilder MD [address] [place] [address] [place] [address] PCP - General Internal Medicine 12/26/22 Brdaly Gonzalez MD [address] [place] [address] Vascular Surgery 07/17/22 Rk Smith [address] [place] [address] Otolaryngology 01/14/25 Buck Hess DPM [address] [place] [address] Podiatry 01/14/25 Rosanne Mosley 03/28/25 Evita Hanna Director Of Head StartYarn Salvager 11/04/24 [facility] CORE [address] [place] [id number] Physical Therapy 07/17/22 documented as of this encounter
--- OUTSIDE RECORDS SUMMARY | 2025-03-30 20:08 | XMS_ITS | Clinical Summary ---
Author Organization [employer] Address [address] [facility] [address] [place] [address] Care Team Providers Care Hand Buffing Wheel Former Name Role Phone Kristy Wilder MD Primary Care Pro vider Bradly Gonzalez MD Unavailable Rk Smith Unavailable Buck Hess DPM Unavailable [phone] Rosanne Mosley Unavailable Allergies Active Allergy Reactions Criticality Noted Date Comments Hfhalwsoa-Ao-Udeflyjnkiduy Unknown 3 Hydromorphone Rash Low 06/28/2020 Other [...] FOUR TIMES DAILY NEEDED PAIN IN MOUTH Active polyethylene glycol, PEG, 3350 (MiraLax) 17 GM/SCOOP powder take (17G) by oral route every day mixed with 8 oz. water, juice, coffee or tea 225 g 2 Active ammonium lactate (Lac-Hydrin) 12 % lotion [...] SUGAR THREE TIMES DAILY 100 strip 11 024 Active TRUEplus Lancets 33G misc TEST BLOOD SUGAR THREE TIMES DAILY 100 each 11 024 Active Alcohol Swabs (Alcohol Prep) 70 % padsIndications:T ype 2 diabetes mellitus without complications (HCC) USE DIRECTED THREE TIMES DAILY 100 each 024 Active calcipotriene (Dovonex) 0.005 % ointmentIndicatio ns:Psoriasis APPLY TOPICALLY TO THE AFFECTED AREA(S) TWICE DAILY 60 g 3 025 Active Fluocinolone Acetonide Scalp 0.01 % oilIndications:Ps oriasis APPLY TOPICALLY TO THE AFFECTED AREA(S) TWICE A WEEK 118.28 mL 3 Active famotidine (Pepcid) 20 MG tabletIndications :Gastroesophageal reflux disease without esophagitis TAKE 1 TABLET BY MOUTH TWICE DAILY IN THE MORNING AND AT BEDTIME 180 tablet 1 Active metFORMIN (Glucophage) 500 MG tabletIndications :Elevated blood sugar TAKE 1 TABLET BY MOUTH EVERY MORNING and TAKE 2 TABLETS BY MOUTH EVERY DAY IN THE EVENING 270 tablet 1 Active Multiple Vitamin (Multivitamin) tablet TAKE 1 TABLET BY MOUTH EVERY MORNING 90 tablet 1 Active nystatin (Mycostatin) 443896 UNIT/GM powder Apply topically if needed each day for rash. 60 g 1 Active cholecalciferol (Vitamin D-3) 25 MCG (1000 UT) tablet Take 1 tablet (25 mcg) by mouth Once per day. 90 tablet 1 025 2025 Active sertraline (Zoloft) 100 MG tablet Take 1 tablet (100 mg) by mouth Once per day. 30 tablet 1 Active Dulaglutide (Trulicity) 1.5 MG/0.5ML solution auto-injector Inject 1.5 mg under the skin 1 (one) time per week. 0.5 mL 3 Active hydrOXYzine HCl (Atarax) 25 MG tablet Take 1 tablet (25 mg) by mouth every 12 (twelve) hours if needed for itching or anxiety. 30 tablet 025 Active propranolol (Inderal) 10 MG tablet TAKE 1 TABLET BY MOUTH TWICE DAILY IN THE MORNING AND IN THE EVENING 180 tablet Active senna (Senokot) 8.6 MG tablet TAKE 1 TABLET BY MOUTH TWICE DAILY IN THE MORNING AND AT BEDTIME FOR CONSTIPATION 180 tablet 1 Active oxyCODONE (Roxicodone) 5 MG immediate release tabletIndications :Back pain, unspecified back location, unspecified back pain laterality, unspecified chronicity Take 1 tablet (5 mg) by mouth every 12 (twelve) hours if needed for severe pain. 28 tablet 025 Active naloxone (Narcan) 4 mg/0.1 mL nasal spray Administer 1 spray (4 mg) into affected nostril(s) if needed for opioid reversal. May repeat every 2-3 minutes if needed, alternating nostrils, until medical assistance becomes available. 2 each 1 Active zolpidem (Ambien) 10 MG tabletIndications :Primary insomnia TAKE 1 TABLET BY MOUTH AT BEDTIME 28 tablet 025 Active losartan (Cozaar) 25 MG tabletIndications :Primary hypertension TAKE 1 TABLET BY MOUTH EVERYDAY AT NOON 90 tablet 1 Active atorvastatin (Lipitor) 10 MG tabletIndications :Mixed hyperlipidemia TAKE 1 TABLET BY MOUTH AT BEDTIME 90 tablet 1 025 Active docusate sodium (Colace) 100 MG capsuleIndication s:Therapeutic opioid induced constipation TAKE 1 CAPSULE BY MOUTH TWICE DAILY IN THE MORNING AND AT BEDTIME NEEDED 180 capsule 1 Active busPIRone (Buspar) 10 MG tablet TAKE 1 TABLET BY MOUTH TWICE DAILY 60 tablet 2 Active levothyroxine (Synthroid, Levoxyl) 75 MCG tabletIndications :Acquired hypothyroidism TAKE 1 TABLET BY MOUTH EVERY MORNING BEFORE BREAKFAST 90 tablet Active atorvastatin (Lipitor) 10 MG tabletIndications :Mixed hyperlipidemia TAKE 1 TABLET BY MOUTH AT BEDTIME 90 tablet 1 025 2024 Discontinued losartan (Cozaar) 25 MG tabletIndications :Primary hypertension TAKE 1 TABLET BY MOUTH EVERYDAY AT NOON 90 tablet 1 025 2024 Discontinued docusate sodium (Colace) 100 MG capsuleIndication s:Therapeutic opioid induced constipation Take 1 capsule (100 mg) by mouth 2 times daily. TAKE 1 CAPSULE BY MOUTH AT BEDTIME NEEDED 60 capsule 2 025 2024 Discontinued levothyroxine (Synthroid) 75 MCG tabletIndications :Acquired hypothyroidism Take 1 tablet (75 mcg) by mouth before breakfast. 90 tablet 025 2024 Discontinued busPIRone (Buspar) 10 MG tablet Take 1 tablet (10 mg) by mouth 2 times daily. To keep med in bottle 60 tablet 1 025 2024 Discontinued zolpidem (Ambien) 10 MG tabletIndications :Primary insomnia TAKE 1 TABLET BY MOUTH AT BEDTIME 28 tablet 025 2024 Discontinued Active Problems Problem Noted Date Diagnosed Date Memory loss 03/08/2025 Transaminitis 01/14/2025 Moderate episode of recurren t major depressive disorder (CMS/HCC) 01/12/2025 Assessment & Plan (01/17/2025 9:49 AM [...] Long-term current use of opiate analgesic 2024 Renal vein thrombosis 06/21/2023 Health care maintenance [...] pt to bring RMV application for disability [employer] to Forms team. Pt has difficulty breathing r/t lung cancer diagnosis Pt will contact [facility] about increasing hours F/u PRN Therapeutic opioid [...] PCP Renal cell carcinoma of right kidney (CMS/HCC) 0 07/21/2019 Overview (01/19/2023): diagnosed back in 2018 status post nephrectomy it was grade 3. status post nephrectomy, at [facility] in January. 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 Marilyn grade 3. Stage IIIA, with renal vein extention. Stutent started on June 17. Urology appt 12/18/22: f/u appt H/O: hysterectomy 02/10/2018 Resolved Problems Problem Noted Date Diagnosed Date Resolved Date Overweight 11/01/2023 01/07/2024 Surgical wound, non healing 08/02/2023 11/01/2023 Obesity 03/11/2023 11/01/2023 Clear cell carcinoma of righ t kidney (CMS/HCC) 01/14/2023 03/11/2023 Renal cell carcinoma (CMS/HCC) 01/14/2023 01/15/2023 Pulmonary nodules 12/10/2022 03/11/2023 Overview (12/23/2022): Pulm appt 12/09/22: The nodules are almost 8 mm in size based on my measurements. Plan CT-guided biopsy 12/19/22: Lung, left lower lobe, needle core biopsy: Metastatic clear cell renal cell carcinoma in keeping with patient's known renal primary. Lumbar back pain 04/25/2022 03/11/2023 Gross hematuria 12/18/2020 03/11/2023 Clear cell carcinoma of kidney (CMS/HCC) 10/23/2018 12/10/2022 Renal mass 08/13/2018 03/11/2023 Encounters * This document contains information received from the source organization and may not represent a complete record from that organization. Date Type Department Care Team Description 03/29/2025 Patient Outreach [facility] [address] [place], [place] [phone] Kristy Wilder MD Care Coordination (CP Care Coordination chart review ) 03/28/2025 Patient Outreach [facility] [address] [place] [address] Kristy Wilder MD 03/22/2025 Refill [facility] [address], [place] [phone] Kristy Wilder MD Acquired hypothyroidism 03/20/2025 Refill [facility] [address] [place] [address] Kristy Wilder MD 03/15/2025 Telephone [facility] [address] [place] [address] Kristy Wilder MD Nurse Triage 03/11/2025 Refill [facility] [address] [place] [phone] Kristy Wilder MD Therapeutic opioid induced constipation 03/08/2025 10:45 AM EDT Office Visit [address] [phone] Kristy Wilder MD Varicose veins of lower extremity, unspecified laterality, unspecified whether complicated (Primary Dx); Encounter for vaccination; Encounter for immunization; Essential hypertension; Varicose veins of both lower extremities, unspecified whether complicated; Type 2 diabetes mellitus with other specified complication, without long-term current use of insulin ([facility]); Health care maintenance; Depressive disorder; Memory loss 03/08/2025 Travel 03/07/2025 Telephone [facility] [address] [place] [phone] Kristy Wilder MD chart prep 03/02/2025 Refill [facility] [address] [place] [phone] Kristy Wilder MD Primary hypertension; Mixed hyperlipidemia 03/01/2025 10:00 AM EDT Office Visit [facility] D[facility] [address] [place] [address] Zi Lzoano DDS 02/28/2025 Patient Outreach [address] [address] Kristy Wilder MD Pre-visit Planning (SDOH screening was completed on 09/20/2024) 02/28/2025 Refill [facility] [address] [place] [phone] Kristy Wilder MD Primary insomnia 02/25/2025 Refill [facility] [address] [place] [phone] Kristy Wilder MD Primary insomnia 02/22/2025 2:00 PM EDT Clinical Support [facility] [address] [place] [address] Colette Diop RN Back pain, unspecified back location, unspecified back pain laterality, unspecified chronicity 02/22/2025 Refill [facility] [address] [place] [address] Colette Diop RN Back pain, unspecified back location, unspecified back pain laterality, unspecified chronicity 02/22/2025 Travel 02/09/2025 Refill [facility] [address] [place] [address] Kristy Wilder MD 01/31/2025 Refill [facility] [address] [place] [address] Kristy Wilder MD Primary insomnia 01/17/2025 Refill [facility] [address] [place] [address] Kristy Wilder MD 01/14/2025 9:45 AM EDT Office Visit [facility] [address] [place] [phone] Kristy Wilder MD Essential hypertension (Primary Dx); Type 2 diabetes mellitus with other specified complication, without long-term current use of insulin (CMS/HCC); Obesity, unspecified class, unspecified obesity type, unspecified whether serious comorbidity present; Health care maintenance; Malignant neoplasm metastatic to lung, unspecified laterality (CMS/HCC); Renal cell carcinoma of right kidney (CMS/HCC); Anxiety; Depressive disorder; Transaminitis 01/14/2025 Travel 01/13/2025 Telephone [facility] [address] [place] [phone] Kristy Wilder MD chart prep 01/11/2025 Orders Only [facility] [address] [place] [address] Kristy Wilder MD 01/10/2025 Telephone [facility] [address] [place] [phone] Kristy Wilder MD requesting call back 01/10/2025 Telephone [facility] [address] [place] [phone] Kristy Wilder MD Call Back Request 01/05/2025 Orders Only [facility] External Provider, [facility] 12/31/2024 Patient Outreach [facility] [address], [place] [phone] Kristy Wilder MD Care Coordination (CHW outreach for SDOH PT-1 and food needs-LVM ) 12/31/2024 Telephone [facility] [address], [place] [phone] Kristy Wilder MD PT-1 12/30/2024 Refill [facility] [address] [place] [address] Kristy Wilder MD Back pain, unspecified back location, unspecified back pain laterality, unspecified chronicity; Primary insomnia from Last 3 Months Immunizations Immunization Administration Dates Next Due Hep B, adult 03/02/2024,08/29/2023,08/01/2023 Influenza injectable quadriv alent preservative free 03/11/2023 Influenza, seasonal, injecta ble, preservative free 03/08/2025,05/14/2022 Influenza, trivalent, adjuvanted 05/27/2021 Moderna Covid-19 Vaccine 12+ 09/22/2020,08/26/19 21 Pfizer Covid-19 Vaccine 12+ 03/08/2025, Pfizer Covid-19 Vaccine 12+ Bivalent 05/14/2022 Pneumococcal [...] Answer Date Recorded Patient Health Questionnaire-9 Score 14 03/08/2025 Patient Health Questionnaire-9 Score 14 03/08/2025 Last PHQ-9: Questionnaire Data Not on file 0 03/08/2025 Housing Stability Answer Date Recorded What is [...] Answer Date Recorded Patient Health Questionnaire-2 Score 5 03/08/2025 Internet Access Answer Date Recorded Internet Access [...] Sign Reading Time Taken Comments Blood Pressure 134/72 03/08/2025 11:29 AM EDT Pulse 70 03/08/2025 11:29 AM EDT Temperature 36.7 C (98 F) 03/08/2025 11:29 AM EDT Respiratory Rate 20 03/08/2025 11:29 AM EDT Oxygen Saturation 96% 12/21/2024 11:11 AM EDT Inhaled Oxygen Concentration - - Weight 80.5 kg (177 lb 6.4 oz) 03/08/2025 11:29 AM EDT Height 167.6 cm (5' 6 ) 03/08/2025 11:29 AM EDT Body Mass Index 28.63 03/08/2025 11:29 AM EDT Plan of Treatment Upcoming Encounters Date Type Department Care Team (Late st Contact Info) Description 04/15/2025 2:30 PM EST Office Visit [facility] OPTOMETRY [address] [place] [address] Yvonne Miller, OD [address] [place] [address] 04/27/2025 3:00 PM EST Office Visit [facility] [address] [place] [address] Zi Lozano, DDS [address] [place] [address] 05/10/2025 1:30 PM EST Clinical Support [facility] [address] [place] [address] 05/16/2025 2:00 PM EST Telemedicine [facility] [address] [place] [address] Colette Diop, RN [address] [place] [address] Health Maintenance Due Date Last Done Comments CT Colonography 1967 FIT DNA/Cologuard 1967 FIT 1967 FOBT 1967 Sigmoidoscopy 1967 HPV/Cotest 1997 Diabetes: Foot Exam 08/28/2023 08/27/2022, Cervical Cancer Screening 11/02/2023 Pap Smear 11/02/2023 11/01/2020 Diabetes: Hemoglobin A1C 03/24/2025 025, 01/06/2024, 12/19/2023, Additional history exists Dental Oral Exam 08/30/2025 03/01/2025 Dental Prophylaxis 08/30/2025 03/01/2025 Depression Monitoring 09/05/2025 03/08/2025, 025 SDOH Screening 09/20/2025 09/20/2024 Mammogram 12/08/2025 12/08/2024, 11/08, 12/02/2022, Additional history exists Alcohol/Substance Use Screening 12/21/2025 12/21/2024 Disability Screening 12/21/2025 12/21/2024 Diabetes: Urine Protein Screening 12/22/2025 12/22/2024, 07/23/2023, 11/23/2021 Lipid Panel 12/22/2025 12/22/2024, 12/07, 07/23/2023, Additional history exists Dental X-Ray: Bitewings 03/02/2026 03/01/2025 Tobacco Screening 03/08/2026 03/08/2025 Eye Exam 03/17/2026 03/17/2024, 02/2024, 03/17/2024, Additional history exists Dental X-Ray: Full Mouth 03/02/2028 03/01/2025, 02/08 Colonoscopy 11/23/2028 11/23/2018 Colorectal Cancer Screening 11/23/2028 [...] C Screening Completed 12/22/2024 , 07/23/2023, 11/23/2021 COVID-19 Vaccine Completed 03/08/2025, 11/2021, 05/27/2021, Additional history exists Influenza Vaccine Completed 03/08/2025, , 05/14/2022, Additional history exists HIB Vaccines Aged Out No longer eligi [...] Procedure Name Priority Date/Time Associated Diagnosis Comments PROPHYLAXIS - ADULT Routine 03/01/2025 1 0:00 AM EDT ORAL HYGIENE INSTRUCTIONS Routine 03/01/2025 10:00 AM EDT INTRAORAL - COMPLETE SERIES OF RADIOGRAPHIC IMAGES Routine 03/01/2025 10:00 AM EDT CASE PRESENTATION, DETAILED AND EXTENSIVE TREATMENT PLANNING Routine 03/01/2025 10:00 AM EDT PANORAMIC RADIOGRAPHIC IMAGE Routine 03/01/2025 10:00 AM EDT COMPREHENSIVE ORAL EVALUATION - NEW OR ESTABLISHED PATIENT Routine 03/01/2025 10:00 AM EDT 1 MO AMALGAM FILLING Routine 03/01/2025 12:00 AM EDT 13 CROWN - PORCELAIN/CERAMIC Routine 03/01/2025 12:00 AM EDT 15 O AMALGAM FILLING Routine 03/01/2025 12:00 AM EDT 18 O AMALGAM FILLING Routine 03/01/2025 12:00 AM EDT 20 O AMALGAM FILLING Routine 03/01/2025 12:00 AM EDT 21 O AMALGAM FILLING Routine 03/01/2025 12:00 AM EDT 32 O AMALGAM FILLING Routine 03/01/2025 12:00 AM EDT 28 O AMALGAM FILLING Routine 03/01/2025 12:00 AM EDT 29 O AMALGAM FILLING Routine 03/01/2025 12:00 AM EDT 3 O AMALGAM FILLING Routine 03/01/2025 1 2:00 AM EDT 4 O AMALGAM FILLING Routine 03/01/2025 1 2:00 AM EDT 5 CROWN - PORCELAIN/CERAMIC Routine 03/01/2025 12:00 AM EDT 6 CROWN - PORCELAIN/CERAMIC Routine 03/01/2025 12:00 AM EDT 6 ROOT CANAL Routine 03/01/2025 12:00 AM EDT POCT KAJAL-14 URINE DRUG SCREEN Routine 02/22/2025 1:10 PM EDT Back pain, unspecified back location, unspecified back pain laterality, unspecified chronicity CT ABDOMEN PELVIS W CONTRAST Routine 01/05/2025 2:[address] CHEST W CONTRAST Routine 01/05/2025 2 :21 PM EDT HEPATITIS C AB W/REFL TO HCV RNA, [...] 1:55 PM EDT HM PAP/HPV Routine 11/01/2020 COLONOSCOPY Routine 11/23/2018 from Last 3 Months or Most Recently Relevant to Health Maintenance Results * (ABNORMAL) POCT KAJAL-14 Urine Drug Screen (02/22/2025 1:10 PM EDT) THC Negative Negative Cocaine Screen, Urine Negative Negative Opiate Screen, Urine Negative Negative Methamphetamine Screen Urine Negative Negative Amphetamine Screen, Urine Negative Negative Benzodiazepines Screen, Urine Negative Negative Barbiturate Screen, Urine Negative Negative Methadone Screen, Urine Negative Negative Buprenophine Screen, Urine Negative Negative TCA, Urine Negative Negative MDMA Urine Negative Negative ng/mL Oxycodone Screen, Urine Positive(A) Negative Phencyclidine (PCP), Urine Negative Negative Propoxyphene, Urine Negative Negative Fentanyl, Urine Negative Negative Urine Urine specimen obtained by clean catch procedure / Unknown 02/22/2025 1:10 PM EDT Narrative Colette Diop RN - 02/22/2025 1:10 PM EDT . Internal Pass Control Lot# [id number] Exp: 04-08-26 Kristy Mosley MD POINT OF CARE NERY T ENTER/EDIT ORDERABLES Final Result * CT Abdomen Pelvis w/ Contrast (01/05/2025 2:21 PM EDT) Anatomical Region Laterality Modality Body, Pelvis, Abdomen Computed T omography 01/05/2025 2:21 PM EDT Narrative 01/05/2025 3:12 PM EDT [place] [address] [address] Scan Report Signed Patient: Krys Gillis MR# : [id number] : 1965 Acct:[id number] Age/Sex: 59 / F ADM Date: 01/05/25 Loc: HO.CT Attending Dr: Sammie Leon NP Ordering Physician: Sammie Leon NP Date of Service: 01/05/25 Procedure(s): CT abdomen pelvis w IV con Accession Number(s): [id number] cc: Justina Erickson MD; Kritsy Wilder MD; Sammie Leon NP Report Number: [id number]: Total DLP = 905.00 mGy-cm EXAMINATION: CT [...] 01/05/25 1509 DD/ 1421 TD/TT: 01/05/25 1454 Heavy Media Operator: Procedure Note Donotuseinterpreter, Image - 01/05/[address] [address] [address] Scan Report Signed Patient: Princess Gillis# : [id number] : 1965Acct:[id number] Age/Sex: 59 / FADM Date: 01/05/25 Loc: HO.CT Attending Dr: Sammie Leon NP Ordering Physician: Sammie Leon NP Date of Service: 01/05/25 Procedure(s): CT abdomen pelvis w IV con Accession Number(s): [id number] cc: Justina Erickson MD; Kristy Wilder MD; Mark Leon Report Number: [id number]: Total DLP = 905.00 mGy-cm EXAMINATION: CT [...] OV> 01/05/25 1509 DD/ 1421 TD/TT: 01/05/25 6460 Heavy Media Operator: [facility] External Provider IMG CT PROCEDURES Final Result * CT Chest w/ Contrast (01/05/2025 2:21 PM EDT) Anatomical Region Laterality Modality Body, Chest Computed Tomogra phy 01/05/2025 2:21 PM EDT Narrative 01/05/2025 3:12 PM EDT [address] [address] [address] Scan Report Signed Patient: Krys Gillis MR# : [id number] : 1965 Acct:[id number] Age/Sex: 59 / F ADM Date: 01/05/25 Loc: HO.CT Attending Dr: Sammie Leon NP Ordering Physician: Sammie Leon NP Date of Service: 01/05/25 Procedure(s): CT chest w IV con Accession Number(s): [id number] cc: Justina Erickson MD; Kristy Wilder MD; Sammie Leon NP Report Number: [id number]: Total DLP = 905.00 mGy-cm EXAMINATION: CT [...] 01/05/25 1509 DD/ 1421 TD/TT: 01/05/25 1454 Heavy Media Operator: Procedure Note Donotuseinterpreter, Image - 01/05/[address] [address] [address] Scan Report Signed Patient: Krys Gillis# : [id number] : 1965Acct:[id number] Age/Sex: 59 / FADM Date: 01/05/25 Loc: HO.CT Attending Dr: Sammie Leon NP Ordering Physician: Sammie Leon NP Date of Service: 01/05/25 Procedure(s): CT chest w IV con Accession Number(s): [id number] cc: Justina Erickson MD; Kristy Wilder MD; Mark Leon Report Number: [id number]: Total DLP = 905.00 mGy-cm EXAMINATION: CT [...] 01/05/25 1509 DD/ 1421 TD/TT: 01/05/25 1454 Heavy Media Operator: us [facility] External Provider IMG CT PROCEDURES Final Result * Albumin, Random Urine W/Creatinine (12/22/2024 9:56 AM EDT) Creatinine, Urine 257.42 mg/dL [facility] Microalbumin Urine 23.0 mg/L [facility] Microalbum Creatinine Ratio Ur 8.9 <30 ug/mg cr [facility] Comment:Albumin/Creatinine R atio Reference Ranges: Normal: < 30 ug/mg creatinine Microalbuminuria: 30 - 300 ug/mg creatinineClinical Albuminuria: > 300 ug/mg creatinine Urine (Urine, Random) 12/22/2024 9:56 AM EDT 12/22/2024 11:08 AM EDT us Kristy Mosley MD LAB URINE ORDERAB LES Final Result Performing Organization Address [facility]/ZIP Co de Phone Number [facility] [address] [place] [phone] * Hepatitis C Antibody with Reflex to HCV, RNA, Quantitative, Real-Time PCR (12/22/2024 9:56 AM EDT) [facility] Hepatitis C Antibody Nonreactive Nonreactive [facility] Comment:Antibodies to HCV no t detected; does not exclude early acuteHCV infection. Blood Venous blood specimen / Unknown 12/22/2024 9:56 AM EDT 12/22/2024 11:07 AM EDT us Kristy Mosley MD LAB BLOOD ORDERAB LES Final Result Performing Organization Address [facility] Co de Phone Number [facility] [address] [place] [phone] * HIV-1/2 Antigen and Antibodies, Fourth Generation, with Reflexes (12/22/2024 9:56 AM EDT) Pathologist [facility] HIV AB/AG Nonreactive Nonreactive [facility] Comment:HIV-1 p24 Ag and/or HIV-1/HIV-2 Ab not detected.A test result that is nonreactive does not exclude thepossibility of exposure to or infection with HIV-1 and/orHIV-2. Nonreactive results in this assay for individualswith prior exposure to HIV-1 and/or HIV-2 may be due toantigen and antibody levels that are below the limit ofdetection of this assay.The [employer] HIV Ag/Ab Combo assay result andsupplemental assay results should be interpreted inconjunction with the patient's clinical presentation,history and other laboratory results. If the results areinconsistent with clinical evidence, additional testing issuggested to confirm the result. Blood Venous blood specimen / Unknown 12/22/2024 9:56 AM EDT 12/22/2024 11:07 AM EDT us Kristy Mosley MD LAB BLOOD ORDERAB LES Final Result Performing Organization Address City/[facility]/ZIP Co de Phone Number [facility] [address] [place] [phone] * (ABNORMAL) Hemoglobin A1c (12/22/2024 9:56 AM EDT) Hemoglobin A1c 6.7(H) <6.0 % [facility] Comment:Hemoglobin A1C Refer ence Range Adults: 4.8 - 6.0 % Non diabetic: < 6.0 % Goal: < 7.0 %Additional Action Suggested: > 8.0 %Note: Hemoglobin A1c results are invalid for patients with abnormal amounts of HbF. Blood transfusions may impact the HbA1c concentration in the patient sample. Estimated Average Glucose 146 mg/dL [facility] Comment:eAG = Estimated ave rage glucose which is %A1C expressed asaverage glucose, using the formula of the M2T-TokheupSnqvbds Glucose study (ADAG), Diabetes Care, Vol.31,#8,Jan. 2007 Blood Venous blood specimen / Unknown 12/22/2024 9:56 AM EDT 12/22/2024 11:09 AM EDT us Kristy Mosley MD LAB BLOOD ORDERAB LES Final Result Performing Organization Address [facility] Hospital/ZIP Co de Phone Number [facility] [address] [place] [phone] * (ABNORMAL) Lipid Panel, Standard (12/22/2024 9:56 AM EDT) Triglycerides 100 <150 mg/dL [facility] Comment:Desirable Triglyceri de: less than 150 mg/dLBorderline High Triglyceride 150-199 mg/dLHigh Triglyceride: 200-499 mg/dLVery High Triglyceride: greater than or equal to 5OO mg/dL Cholesterol 277(H) <200 mg/dL [facility] Comment:Desirable Cholestero l: less than 200 mg/dLBorderline High Cholesterol: 200-239 mg/dLHigh Cholesterol: greater than 239 mg/dL LDL Cholesterol Calculated 208(H) <100 mg/dL [facility] Comment:Desirable LDL: less than 100 mg/dLNear Optimal/Above Optimal LDL: 110- 129 mg/dLBorderline High LDL: 130-159 mg/dLHigh LDL: 160-189 mg/dLVery High LDL: greater than or equal to 190 mg/dL HDL Cholesterol 49 >40 mg/dL [facility] Comment:Desirable HDL: great er than 40 mg/dL Note: This HDL assay may give artificially low results in patients with liver disease. Blood Venous blood specimen / Unknown 12/22/2024 9:56 AM EDT 12/22/2024 11:07 AM EDT us Kristy Mosley MD LAB BLOOD ORDERAB LES Final Result [facility] [address] [place] [address] [phone] * BI Mammogram Screening Tomosynthesis Bilateral (12/08/2024 1:55 PM EDT) Anatomical Region Laterality Modality Breast Bilateral Mammography 12/08/2024 1:55 PM EDT Narrative 12/19/2024 9:17 PM EDT [facility] [address] [place] [address] Mammography Report Signed Patient: Krys Gillis MR# : [id number] : 1965 Acct:[id number] Age/Sex: 59 / F ADM Date: 12/08/24 Loc: HO.MAMMO Attending Dr: Kristy Mosley MD Ordering Physician: Kristy Wilder MD Re sults: 1Negative Date of Service: 12/08/24 Follow Up: 1 Year From Orig inal Mammogram Procedure(s): MM tomosynthesis screening BI Accession Number(s): [id number] cc: Kristy Wilder MD EXAMINATION: MM SCREENING [...] Meri Benson DO 12/19/2024 09:14 PM EDT Dictated By: Meri Benson DO Signed By: <Electronically signed by Meri Benson DO in OV> 12/19/242113 DD/ 1355 TD/TT: 12/08/24 1410 Heavy Media Operator: Procedure Note Donotuseinterpreter, Image - 12/19/2024 [facility] [address] [place] [address] Mammography Report Signed Patient: Krys Gillis# : [id number] : 1965Acct:[id number] Age/Sex: 59 / FADM Date: 12/08/24 Loc: HO.MAMMO Attending Dr: Kristy Mosley MD Ordering Physician: Kristy Wilder sults: 1Negative Date of Service: 12/08/24Follow Up: 1 Year From Orig inal Mammogram Procedure(s): MM tomosynthesis screening BI Accession Number(s): [id number] cc: Kristy Wilder MD EXAMINATION: MM SCREENING [...] Meri Benson DO 12/19/2024 09:14 PM EDT Dictated By: Meri Benson DO Signed By: <Electronically signed by Meri Benson DO in OV> 12/19/24 2114 DD/ 1355 TD/TT: 12/08/24 1410 Heavy Media Operator: Kristy Mosley MD IMG BI PROCEDURES Edited Result - Final * Pap Smear (11/01/2020) Pap smear Performed Historical Provider HEALTH MAINTENANCE Final Result * Colonoscopy (11/23/2018) Colonoscopy Performed Historical Provider HEALTH MAINTENANCE Edited Result - Final from Last 3 Months or Most Recently Relevant to Health Maintenance Insurance [address] [place], [place] [address]Force-A C3 DENTAL-[facility] MEDICAID STAND ADULT Care Teams Hand Buffing Wheel Former Relationship Specialty Start Date End Date Kristy Wilder MD [address] [place] [address] PCP - General Internal Medicine 12/26/22 Bradly Gonzalez MD [address] [place], [place] [phone] Vascular Surgery 07/17/22 Rk Smith [address] [place] [address] Otolaryngology 01/14/25 Buck Hess DPM [address] [facility] [address] [place] [address] Podiatry 01/14/25 Rosanne Mosley 03/28/25 Evita Hanna Cement Mason Highways And StreetsManufacturing Quality Engineer 11/04/[address] [address] Physical Therapy 07/17/22
--- OUTSIDE RECORDS SUMMARY | 2025-03-30 20:08 | XMS_ITS | Encounter Summary ---
Author Organization [employer] Address 75 [facility] 7 [place] [address] Care Team Providers Care Fermentation Operator Name Role Phone Kristy Wilder MD Primary Care Pro vider Bradly Gonzalez MD Unavailable Rk Smith Unavailable Buck Hess DPM Unavailable [phone] Rosanne Mosley Unavailable Reason for Visit * Reason Onset Date Comments PT-1 08/03/2024 Encounter Details Date Type Department Care Team ([facility] st Contact Info) Description 08/03/2024 Telephone [facility] MEDICINE [address] [place], [place] [phone] Kristy Wilder MD [address] [place], [place] [phone] PT-1 Social History Tobacco Use Types Packs/Day [...] Y/N: Yes Provider name or facility name: [facility] Facility Address: [address] [place] [address] Escort needed: Y/N: No Do you have a wheelchair: Y/N: No If yes- Manual or electric: N/A Visits: Twice monthly documented in this encounter Plan of Treatment Upcoming Encounters Date Type Department Care Team (Late st Contact Info) Description 04/15/2025 2:30 PM EST Office Visit [facility] OPTOMETRY [address] [place] [address] Paul, Yvonne, OD 230 [place] [address] 04/27/2025 3:00 PM EST Office Visit [facility] CHC ADULT DENTAL [address] [place] [address] Zi Lozano, DDS 230 [place] [address] 05/10/2025 1:30 PM EST Clinical Support [facility] MEDICINE 230 [place] [address] 05/16/2025 2:00 PM EST Telemedicine [facility] CHC MED & PEDS 505 [place] [address] Colette Diop, RN [address] [place] [address] documented as of this encounter Visit Diagnoses Not on filedocumented in this encounter Additional Health Concerns Assessment Noted Time PHQ-9 Depression Total Score: 4 10/31/19 1:38 PM EDT documented as of this encounter Care Teams Fermentation Operator Relationship Specialty Start Date End Date Kristy Wilder MD [address] [place] [address] PCP - General Internal Medicine 12/26/22 Bradly Gonzalez MD [address] [place] [address] Drive [address] [place] [address] Vascular Surgery 07/17/22 Rk Smith 100 [facility] [address] [place] [address] Otolaryngology 01/14/25 Buck Hess DPM [address] [place] [address] [address] [place] [address] Podiatry 01/14/25 Rosanne Mosley 03/28/25 Evita Hanna Director Of Career ResourcesUnderbaster 11/04/24 [facility] CORE [address] [place] [address] Physical Therapy 07/17/22 documented as of this encounter
--- OUTSIDE RECORDS SUMMARY | 2025-03-30 20:08 | XMS_ITS | Encounter Summary ---
Author Organization [email or web address] Address 75 [facility] 7 [place] [address] Care Team Providers Care Nocturnist Physician Name Role Phone Kristy Wilder MD Primary Care Pro vider Bradly Gonzalez MD Unavailable Rk Smith Unavailable Buck Hess DPM Unavailable [phone] Rosanne Mosley Unavailable Reason for Visit * Reason Comments Care Coordination CP Care Coordination chart review Encounter Details Date Type Department Care Team (Latest Contact Info) Description 03/29/2025 Patient Outreach [facility] MED & PEDS [address] [place] [address] Kristy Wilder MD 230 [place] [address] Care Coordination (CP Care Coordination chart review ) Social History Tobacco Use Types Packs/Day Years [...] as of this encounter Progress Notes * Rosanne Mosley - 03/29/2025 2:07 PM EDT Community Partners Coordinator, Rosanne Mosley, performed chart review, as patient has experienced anADT event and has been identified as being engaged with a [facility] Program. Patient is assigned to CP Program BHCP to Secure Software Assessor Evita Hanna. Patient visited [facility] ED on 03/25/25. Last appointment in PCP office on 03/08/25. Next appointment scheduled for 04/25/25. documented in this encounter Plan of Treatment Upcoming Encounters Date Type Department Care Team (Late st Contact Info) Description 04/15/2025 2:30 PM EST Office Visit [facility] OPTOMETRY [address] [place] [address] Yvonne Miller, OD 230 [place] [address] 04/27/2025 3:00 PM EST Office Visit [facility] CHC ADULT DENTAL [address] [place] [address] Zi Lozano DDS 230 [place] [address] 05/10/2025 1:30 PM EST Clinical Support [facility] MEDICINE 230 [place] [address] 05/16/2025 2:00 PM EST Telemedicine [facility] CHC MED & PEDS [address] [place], [place] [phone] Colette Diop, RN 505 [place], [place] [phone] documented as of this encounter Visit Diagnoses Not on filedocumented in this encounter Additional Health Concerns Assessment Noted Time PHQ-9 Depression Total Score: 14 025 11:30 AM EDT documented as of this encounter Care Teams Nocturnist Physician Relationship Specialty Start Date End Date Kristy Wilder MD [address] [place] [address] PCP - General Internal Medicine 12/26/22 Bradly Gonzalez MD [address] [place] [address] Vascular Surgery 07/17/22 Rk Smith 100 [facility] 100 [place] [address] Otolaryngology 01/14/25 Buck Hess DPM [address] [place] [address] 250 [place] [address] Podiatry 01/14/25 Rosanne Mosley 03/28/25 Evita Hanna Line Painting Machine OperatorPolysomnograph Tech 11/04/24 [facility] [address] [place] [address] Physical Therapy 07/17/22 documented as of this encounter
--- OUTSIDE RECORDS SUMMARY | 2025-03-30 20:08 | XMS_ITS | Encounter Summary ---
Author Organization [employer] Address 75 [facility] 7t [place] [address] Care Team Providers Care Personal Banking Representative Name Role Phone Khloe Fonseca ELEVATOR MECHANIC APPRENTICE Primary Care Provider Kristy Ring MD Primary Care Pro vider Bradly Gonzalez MD Unavailable Rk Smith Unavailable Buck Hess DPM Unavailable [phone] Rosanne Mosley Unavailable Reason for Visit * Reason Onset Date Comments OTHER 12/24/2022 Encounter Details Date Type Department Care Team (Late st Contact Info) Description 12/24/2022 Telephone [facility] MEDICINE [address] [place] [address] Khloe Fonseca FNP OTHER Social History Tobacco [...] To clarify, please contact pt sister at [phone] documented in this encounter Plan of Treatment Upcoming Encounters Date Type Department Care Team (Late st Contact Info) Description 04/15/2025 2:30 PM EST Office Visit [facility] OPTOMETRY [address] [place] [address] PaulYvonne marlow, OD 230 [place] [address] 04/27/2025 3:00 PM EST Office Visit [facility] ADULT DENTAL [address] [place] [address] Zi Lozano DDS 230 [place] [address] 05/10/2025 1:30 PM EST Clinical Support [facility] MEDICINE 230 [place] [address] 05/16/2025 2:00 PM EST Telemedicine [facility] MED [facility] PEDS [address] [place] [address] Colette Diop, BRICE 505 [place] [address] documented as of this encounter Visit Diagnoses Not on filedocumented in this encounter Additional Health Concerns Assessment Noted Time PHQ-9 Depression Total Score: 11 022 1:16 PM EST documented as of this encounter Care Teams Personal Banking Representative Relationship Specialty Start Date End Date Khloe Fonseca FNP PCP - General Family Medicine 02/05/22 12/25/22 Kristy Wilder MD 230 [place] [address] PCP - General Internal Medicine 12/26/22 Bradly Gonzalez MD [address] [place] [address] Vascular Surgery 07/17/22 Rk Smith 100 [facility] [address] [place] [address] Otolaryngology 01/14/25 Buck Hess DPM [address] [place] [address] Podiatry 01/14/25 Rosanne Mosley 03/28/25 Evita Hanna E Commerce Project ManagerCornice Upholsterer 11/04/[address] [address] Physical Therapy 07/17/22 documented as of this encounter
--- OUTSIDE RECORDS SUMMARY | 2025-03-30 20:08 | XMS_ITS | Encounter Summary ---
Author Organization [employer] Address 75 [facility] 7t [place] [address] Care Team Providers Care Vrt Mechanic Name Role Phone Kristy Wilder MD Primary Care Pro vider Bradly Gonzalez MD Unavailable Rk Smith Unavailable Buck Hess DPM Unavailable [phone] Rosanne Mosley Unavailable Reason for Visit * Reason Comments Med Refill Encounter Details Date Type Department Care Team (Late st Contact Info) Description 02/25/2025 Refill [facility] MEDICINE [address] [place], [place] [phone] Kristy Wilder MD [address] [place], [place] [phone] Primary insomnia Social History Tobacco Use Types [...] housing situation today? I have kenton sing 09/20/[address] you li [...] Description 04/15/2025 2:30 PM EST Office Visit [facility] OPTOMETRY [address] [place] [address] PaulYvonne marlow, OD 230 [place] [address] 04/27/2025 3:00 PM EST Office Visit [facility] ADULT DENTAL 505 [place] [address] Zi Lozano DDS [address] [place] [address] 05/10/2025 1:30 PM EST Clinical Support [facility] MEDICINE 230 [place] [address] 05/16/2025 2:00 PM EST Telemedicine [facility] MED & PEDS 505 [place] [address] Colette Diop, BRICE 505 [place] [address] documented as of this encounter Visit Diagnoses Diagnosis Primary insomnia Persistent disorder of initiating or maintaining sleep documented in this encounter Additional Health Concerns Assessment Noted Time PHQ-9 Depression Total Score: 12 025 9:32 AM EDT documented as of this encounter Care Teams Vrt Mechanic Relationship Specialty Start Date End Date Kristy Wilder MD 230 [place] [address] PCP - General Internal Medicine 12/26/22 Bradly Gonzalez MD [address] [place] [address] Vascular Surgery 07/17/22 Rk Smith 100 [facility] [address] [place] [address] Otolaryngology 01/14/25 Buck Hess DPM [address] [place] [address] [address] [place] [address] Podiatry 01/14/25 Rosanne Mosley 03/28/25 Evita Hanna Carpenters SupervisorRailroad Police Officer 11/04/[address] [address] Physical Therapy 07/17/22 documented as of this encounter
--- OUTSIDE RECORDS SUMMARY | 2025-03-30 20:08 | XMS_ITS | Encounter Summary ---
Author Organization [email or web address] Address 75 [facility] 7t h Floor [place] [phone] Care Team Providers Care Gas Engine Performance Engineer Name Role Phone Khloe Fonseca SIGNAL CONSTRUCTOR Primary Care Provider Kristy Ring MD Primary Care Pro vider Bradly Gonzalez MD Unavailable Rk Smith Unavailable Buck Hess DPM Unavailable [phone] Rosanne Mosley Unavailable Reason for Visit * Reason Onset Date Comments Med Refill [facility] VNA order 08/25/2022 Order # [id number] Encounter Details Date Type Department Care Team (Late st Contact Info) Description 08/25/[address] [facility] MEDICINE [address] [place] [address] Khloe Fonseca FNP Type 2 diabetes mellitus without complication, without long-term current use of insulin ([facility]) Social History Tobacco Use Types [...] Description 04/15/2025 2:30 PM EST Office Visit [facility] OPTOMETRY [address] [place] [address] PaulYvonne marlow, OD 230 [place] [address] 04/27/2025 3:00 PM EST Office Visit [facility] ADULT DENTAL [address] [place], [place] [phone] Zi Lozano DDS 230 [place] [address] 05/10/2025 1:30 PM EST Clinical Support [facility] MEDICINE 230 [place] [address] 05/16/2025 2:00 PM EST Telemedicine [facility] MED & PEDS 505 [place], [place] [phone] Colette Diop RN 505 [place], [place] [phone] documented as of this encounter Visit Diagnoses Diagnosis Type 2 diabetes mellitus without complication, without long-term current use of insulin (HCC) documented in this encounter Additional Health Concerns Assessment Noted Time PHQ-9 Depression Total Score: 11 022 1:16 PM EST documented as of this encounter Care Teams Gas Engine Performance Engineer Relationship Specialty Start Date End Date Khloe Fonseca FNP PCP - General Family Medicine 02/05/22 12/25/22 Kristy Wilder MD [address] [place] [address] PCP - General Internal Medicine 12/26/22 Bradly Gonzalez MD [address] [place] [address] Vascular Surgery 07/17/22 Rk Smith 100 [address] [place] [address] Otolaryngology 01/14/25 Buck Hess DPM [address] [place] [address] [address] [place] [address] Podiatry 01/14/25 Rosanne Mosley 03/28/25 Evita Hanna Gameroom TechnicianMelter Supervisor Oxygen Furnace 11/04/24 [facility] CORE [address] [place] [address] Physical Therapy 07/17/22 documented as of this encounter
--- OUTSIDE RECORDS SUMMARY | 2025-03-30 20:08 | XMS_ITS | Clinical Summary ---
Author Organization [facility] Address [address] [place] [address] Care Team Providers Care Casino Gaming Inspector Name Role Phone Bryce Terrietaijuice Partha Primary Care Provider [phone] Allergies Active Allergy Reactions Criticality Noted Date [...] of 3 - 19+ 3-dose series) 03/09 Mammogram 2007 Zoster Vaccines (1 of 2) 2017 Pneumococcal Vaccine: 50+ Ye ars (2 of 2 - PCV20 or PCV21) 04/09/2020 04/09/2019 Alcohol/Substance Use Screening 06/09/2024 Influenza Vaccine (#1) 2025 DTaP,Tdap,and Td Vaccines (2 - Td or Tdap) 04/09/2029 04/09/2019 RSV Vaccine (60+ years old a nd patients) (1 - 1-dose 75+ series) 2042 Medical Devices Implanted Type Area Web Architect Device Identifier Shelf Expiration Date Model / Serial / Lot System Closure Suture Medicated Perclose Proglide 6fr - [id number] Implanted:Qty: 1 on 02/04/2019 at [facility] Implant [employer] [id number] 126 73-03 / / Coil Embolization Neurovascular [place] 0.035in [id number] Tornado - [id number] Implanted:Qty: 1 on 02/04/2019 at [facility] Implant [employer] [id number] 10/11/19 23 [id number] / / [id number] Coil Embolization Neurovascular [place] 0.035in [id number] Tornado - [id number] Implanted:Qty: 1 on 02/04/2019 at [facility] Implant [employer] [id number] 08/03/19 24 [id number] / / [id number] Coil Embolization Neurovascular [place] 0.035in [id number] Tornado - [id number] Implanted:Qty: 1 on 02/04/2019 at [facility] Implant [employer] [id number] 08/03/19 24 [id number] / / [id number] Coil Embolization Neurovascular [place] 0.035in [id number] Tornado - [id number] Implanted:Qty: 1 on 02/04/2019 at [facility] Implant [employer] [id number] 08/03/19 24 [id number] / / [id number] Insurance [facility] Care Teams Casino Gaming Inspector Relationship Specialty Start Date End Date Davon Wu [address] [place] [address] PCP - General Internal Medicine 09/28/18
--- OUTSIDE RECORDS SUMMARY | 2025-03-30 20:08 | XMS_ITS | Encounter Summary ---
Author Organization [employer] Address 75 [facility] 7 [place] [address] Care Team Providers Care Corporate Travel Manager Name Role Phone Kristy Wilder MD Primary Care Pro vider Bradly Gonzalez MD Unavailable Rk Smith Unavailable Buck Hess DPM Unavailable [phone] Rosanne Mosley Unavailable Reason for Visit * Reason Onset Date Comments Letter for School/Work 12/26/2022 Encounter Details Date Type Department Care Team (Late st Contact Info) Description 12/26/2022 Telephone [facility] MEDICINE [address] [place], [place] [phone] Kristy Wilder MD 230 [place], [place] [phone] Letter for School/Work Social History Tobacco Use [...] for PCP to make a letter for EGG WORKER 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 and dx on letter to be faxed to [phone] documented in this encounter Plan of Treatment Upcoming Encounters Date Type Department Care Team (Late st Contact Info) Description 04/15/2025 2:30 PM EST Office Visit [facility] OPTOMETRY [address] [place] [address] Yvonne Miller, OD 230 [place] [address] 04/27/2025 3:00 PM EST Office Visit [facility] ADULT DENTAL [address] [place] [address] Zi Lozano DDS [address] [place] [address] 05/10/2025 1:30 PM EST Clinical Support [facility] MEDICINE 230 [place] [address] 05/16/2025 2:00 PM EST Telemedicine [facility] MED & PEDS [address] [place] [address] Colette Diop, RN 505 [place] [address] documented as of this encounter Visit Diagnoses Not on filedocumented in this encounter Additional Health Concerns Assessment Noted Time PHQ-9 Depression Total Score: 11 022 1:16 PM EST documented as of this encounter Care Teams Corporate Travel Manager Relationship Specialty Start Date End Date Kristy Wilder MD 230 [place] [address] PCP - General Internal Medicine 12/26/22 Bradly Gonzalez MD [address] [facility] [address] [place] [address] Vascular Surgery 07/17/22 Rk Smith [address] [place] [address] Otolaryngology 01/14/25 Buck Hess DPM 175 [facility] [address] [place] [address] Podiatry 01/14/25 Rosanne Mosley 03/28/25 Evita Hanna Contour SanderTobacco Conditioner 11/04/[address] [address] Physical Therapy 07/17/22 documented as of this encounter
--- OUTSIDE RECORDS SUMMARY | 2025-03-30 20:08 | XMS_ITS | Encounter Summary ---
Author Organization [facility] Address [address] [place] [address] Care Team Providers Care Red Cross Worker Name Role Phone Davon Wu Primary Care Provider [phone] Encounter Details Date Type Department Care Team (Late st Contact Info) Description 10/31/2020 Orders Only [facility] Xray [address] [place] [address] Winifred Winston MD 55 [place], [place] [phone] Social History Tobacco Use Types Packs/Day Years [...] on filedocumented in this encounter Care Teams Red Cross Worker Relationship Specialty Start Date End Date Davon Wu 230 [place] [address] PCP - General Internal Medicine 09/28/18 documented as of this encounter
--- OUTSIDE RECORDS SUMMARY | 2025-03-30 20:08 | XMS_ITS | Encounter Summary ---
Author Organization [employer] Address [address] [facility] 7t [place] [address] Care Team Providers Care Scrap Carrier Name Role Phone Khloe Fonseca Primary Care Provider Kristy Ring MD Primary Care Pro vider Bradly Gonzalez MD Unavailable Rk Smith Unavailable Buck Hess DPM Unavailable [phone] Rosanne Mosley Unavailable Reason for Visit * Reason Onset Date Comments pt1 10/03/2022 Encounter Details Date Type Department Care Team (Late st Contact Info) Description 10/03/2022 Telephone [facility] MEDICINE [address] [place] [address] Khloe Fonseca FNP pt1 Social History Tobacco [...] 3 10/03/2022 9:34 AM EDT Jessenia Boston, CONSUMER LENDER Not being able to stop or control worrying 3 10/03/2022 9:34 AM EDT Jessenia Boston LICSW Worrying too much about different things 3 10/03/2022 9:34 AM EDT Jessenia Boston LICSW Trouble relaxing 3 10/03/2022 9:34 AM EDT Jennifer Carroll LICSW Being so restless that it is hard to sit still 3 10/03/2022 9:34 AM EDT Jessenia Boston LICSW Becoming easily annoyed or irritable 3 10/03/2022 9:34 AM EDT Jessenia Boston LICSW Feeling afraid as if something awful might happen 3 10/03/2022 9:34 AM EDT Jennifer Boston LICSW SILVESTRE-7 Total Score 21 10/03/2022 9:34 AM EDT Jennifer Boston LICSW documented as of this encounter Miscellaneous Notes * Telephone Encounter - Marko Rodriguez - 10/03/2022 4:21 PM EDT Tc from pt requesting a pt1 ride Date: oct 07 2022 Time: 2:30 pm address: [address] [place] [address] [id number], [place] [address] specialty: # visits: manager order: no Wheelchair: no Date:10/23/22 Time:02 pm address: [facility] specialty: PCP # visits: manager order: no Wheelchair: no Date:11/07/22 Time: 1:30 address: [facility] specialty: PCP # visits: manager order: no Wheelchair:no documented in this encounter Plan of Treatment Upcoming Encounters Date Type Department Care Team (Late st Contact Info) Description 04/15/2025 2:30 PM EST Office Visit [facility] OPTOMETRY [address] [place] [address] Yvonne Miller, OD [address] [place] [address] 04/27/2025 3:00 PM EST Office Visit [facility] ADULT DENTAL [address] [place], [place] [phone] Zi Lozano DDS [address] [place] [address] 05/10/2025 1:30 PM EST Clinical Support [facility] MEDICINE [address] [place] [address] 05/16/2025 2:00 PM EST Telemedicine [facility] MED & PEDS [address] [place], [place] [phone] Colette Diop, RN 505 [place] [address] documented as of this encounter Visit Diagnoses Not on filedocumented in this encounter Additional Health Concerns Assessment Noted Time PHQ-9 Depression Total Score: 11 022 1:16 PM EST documented as of this encounter Care Teams Scrap Carrier Relationship Specialty Start Date End Date Khloe Fonseca FNP PCP - General Family Medicine 02/05/22 12/25/22 Kristy Wilder MD 230 [place] [address] PCP - General Internal Medicine 12/26/22 Bradly Gonzalez MD [address] [place] [address] Vascular Surgery 07/17/22 Rk Smith [address] [facility] [address] [place] [address] Otolaryngology 01/14/25 Buck Hess DPM [address] [place] [address] [place] [address] Podiatry 01/14/25 Rosanne Mosley 03/28/25 Evita Hanna Insert CutterMajor Account Representative 11/04/24 [facility] [address] [place] [address] Physical Therapy 07/17/22 documented as of this encounter
--- OUTSIDE RECORDS SUMMARY | 2025-03-30 20:08 | XMS_ITS | Encounter Summary ---
Author Organization [employer] Address [address] [facility] 7t [place] [address] Care Team Providers Care Production Planner Name Role Phone Kristy Wilder MD Primary Care Pro vider Bradly Gonzalez MD Unavailable Rk Smith Unavailable Buck Hess DPM Unavailable [phone] Rosanne Mosley Unavailable Reason for Visit * Reason Comments Med Refill Encounter Details Date Type Department Care Team (Late st Contact Info) Description 09/25/2023 Refill [facility] MEDICINE [address] [place], [place] [phone] Kristy Wilder MD 230 [place], [place] [phone] Primary insomnia Social History Tobacco Use Types [...] Description 04/15/2025 2:30 PM EST Office Visit [facility] OPTOMETRY [address] [place] [address] Yvonne Miller, OD 230 [place] [address] 04/27/2025 3:00 PM EST Office Visit [facility] ADULT DENTAL [address] [place] [address] Zi Lozano DDS 230 [place] [address] 05/10/2025 1:30 PM EST Clinical Support [facility] MEDICINE [address] [place] [address] 05/16/2025 2:00 PM EST Telemedicine [facility] MED & PEDS [address] [place] [address] Colette Diop, BRICE [address] [place] [address] documented as of this encounter Visit Diagnoses Diagnosis Primary insomnia Persistent disorder of initiating or maintaining sleep documented in this encounter Additional Health Concerns Assessment Noted Time PHQ-9 Depression Total Score: 16 023 11:20 AM EDT documented as of this encounter Care Teams Production Planner Relationship Specialty Start Date End Date Kristy Wilder MD [address] [place] [address] PCP - General Internal Medicine 12/26/22 Bradly Gonzalez MD [address] [place] [address] Vascular Surgery 07/17/22 Rk Smith 100 [facility] [address] [place] [address] Otolaryngology 01/14/25 Buck Hess DPM [address] [facility] [address] [place] [address] Podiatry 01/14/25 Rosanne Mosley 03/28/25 Evita Hanna Post Graduate InternAluminum Siding Mechanic 11/04/24 [facility] [address] [place] [address] Physical Therapy 07/17/22 documented as of this encounter
--- OUTSIDE RECORDS SUMMARY | 2025-03-30 20:08 | XMS_ITS ---
Author Organization [facility] Address [address] [place] [address] Care Team Providers Care Central Processing Technician Name Role Phone Davon Wu Primary Care Provider [phone] Active Problems Problem Noted Date Diagnosed Date [...]
--- OUTSIDE RECORDS SUMMARY | 2025-03-30 20:08 | XMS_ITS | Encounter Summary ---
Author Organization [employer] Address [address] [facility] 7t [place] [address] Care Team Providers Care Wood Tank Erector Name Role Phone Khloe Fonseca PULLEY MORTISER OPERATOR Primary Care Provider Kristy Ring MD Primary Care Pro vider Bradly Gonzalez MD Unavailable Rk Smith Unavailable Buck Hess DPM Unavailable Rosanne Mosley Unavailable Encounter Details Date Type Department Care Team (Late Contact Info) Description 12/09/2022 Abstract [facility] MEDICINE [address] [place] [address] Khloe Fonseca FNP Social History Tobacco Use [...] Department Care Team (Late Contact Info) Description 04/15/2025 2:30 PM EST Office Visit [facility] OPTOMETRY [address] [place] [address] Yvonne Miller, OD 230 [place] [address] 04/27/2025 3:00 PM EST Office Visit [facility] CHC ADULT DENTAL [address] [place] [address] Zi Lozano DDS [address] [place] [address] 05/10/2025 1:30 PM EST Clinical Support [facility] MEDICINE [address] [place] [address] 05/16/2025 2:00 PM EST Telemedicine [facility] MED & PEDS [address] [place] [address] Colette Diop, RN [address] [place] [address] documented as of this encounter Visit Diagnoses Not on filedocumented in this encounter Additional Health Concerns Assessment Noted Time PHQ-9 Depression Total Score: 11 022 1:16 PM EST documented as of this encounter Care Teams Wood Tank Erector Relationship Specialty Start Date End Date Khloe Fonseca FNP PCP - General Family Medicine 02/05/22 12/25/22 Kristy Wilder MD 230 [place] [address] PCP - General Internal Medicine 12/26/22 Bradly Gonzalez MD [address] [place] [address] Vascular Surgery 07/17/22 Rk Smith 100 [facility] [address] [place] [address] Otolaryngology 01/14/25 Buck Hess DPM [address] [facility] [address] [place] [address] Podiatry 01/14/25 Rosanne Mosley 03/28/25 Evita Hanna Supervisor GroundsPanel Cutter 11/04/24 [facility] [address] [place] [address] Physical Therapy 07/17/22 documented as of this encounter
--- OUTSIDE RECORDS SUMMARY | 2025-03-30 20:08 | XMS_ITS | Encounter Summary ---
Author Organization [employer] Address [address] [facility] 7 [place] [address] Care Team Providers Care Blender Snuff Name Role Phone Kristy Wilder MD Primary Care Pro vider Bradly Gonzalez MD Unavailable Rk Smith Unavailable Buck Hess DPM Unavailable [phone] Rosanne Mosley Unavailable Reason for Visit * Reason Onset Date Comments PT-1 12/31/2024 Encounter Details Date Type Department Care Team ([facility] st Contact Info) Description 12/31/2024 Telephone [facility] MEDICINE [address] [place], [place] [phone] Kristy Wilder MD [address] [place], [place] [phone] PT-1 Social History Tobacco Use Types Packs/Day [...] Y/N: Yes Provider name or facility name: [facility] Facility Address: [address] [place] [address] Escort needed: Y/N: Yes Do you have a wheelchair: Y/N: No If yes- Manual or electric: N/A Visits: 3 times a month documented in this encounter Plan of Treatment Upcoming Encounters Date Type Department Care Team (Late st Contact Info) Description 04/15/2025 2:30 PM EST Office Visit [facility] OPTOMETRY [address] [place] [address] Yvonne Miller, OD [address] [place] [address] 04/27/2025 3:00 PM EST Office Visit [facility] CHC ADULT DENTAL [address] [place] [address] Zi Lozano DDS 230 [place] [address] 05/10/2025 1:30 PM EST Clinical Support [facility] MEDICINE [address] [place] [address] 05/16/2025 2:00 PM EST Telemedicine [facility] CH[facility] MED & PEDS [address] [place] [address] Colette Diop, RN [address] [place] [address] documented as of this encounter Visit Diagnoses Not on filedocumented in this encounter Additional Health Concerns Assessment Noted Time PHQ-9 Depression Total Score: 16 025 2:11 PM EDT documented as of this encounter Care Teams Blender Snuff Relationship Specialty Start Date End Date Kristy Wilder MD [address] [place] [address] PCP - General Internal Medicine 12/26/22 Bradly Gonzalez MD [address] [facility] [address] [place] [address] Vascular Surgery 07/17/22 Rk Smith 100 [facility] [address] [place] [address] Otolaryngology 01/14/25 Buck Hess DPM [address] [place] [address] [address] [place] [address] Podiatry 01/14/25 Rosanne Mosley 03/28/25 Evita Hanna Joint Special OperationsMender Hand 11/04/24 [facility] [address] [place] [address] Physical Therapy 07/17/22 documented as of this encounter
--- OUTSIDE RECORDS SUMMARY | 2025-03-30 20:08 | XMS_ITS | Encounter Summary ---
Author Organization [employer] Address [address] [facility] 7t [place] [address] Care Team Providers Care Laboratory Mechanical Technician Name Role Phone Kristy Wilder MD Primary Care Pro vider Bradly Gonzalez MD Unavailable Rk Smith Unavailable Buck Hess DPM Unavailable [phone] Rosanne Mosley Unavailable Reason for Visit * Reason Onset Date Comments Reschedule 07/07/2023 Encounter Details Date Type Department Care Team ([facility] st Contact Info) Description 07/07/2023 Telephone [facility] MEDICINE [address] [place], [place] [phone] Kristy Wilder MD [address] [place], [place] [phone] Reschedule Social History Tobacco Use Types Packs/Day [...] Tc from pt requesting to r/s 07/25 MORTICIAN INVESTIGATOR appointment due to pt having 2 appointments scheduled same day and will be doing chemo. Please contact pt at [phone] (Azeri) documented in this encounter Plan of Treatment Upcoming Encounters Date Type Department Care Team (Late st Contact Info) Description 04/15/2025 2:30 PM EST Office Visit [facility] OPTOMETRY [address] [place] [address] Paul, Yvonne, OD [address] [place] [address] 04/27/2025 3:00 PM EST Office Visit [facility] ADULT DENTAL [address] [place] [address] Zi Lozano DDS [address] [place] [address] 05/10/2025 1:30 PM EST Clinical Support [facility] MEDICINE [address] [place] [address] 05/16/2025 2:00 PM EST Telemedicine [facility] MED & PEDS [address] [place] [address] Colette Diop, BRICE 505 [place] [address] documented as of this encounter Visit Diagnoses Not on filedocumented in this encounter Additional Health Concerns Assessment Noted Time PHQ-9 Depression Total Score: 16 023 11:20 AM EDT documented as of this encounter Care Teams Laboratory Mechanical Technician Relationship Specialty Start Date End Date Kristy Wilder MD [address] [place] [address] PCP - General Internal Medicine 12/26/22 Bradly Gonzalez MD [address] [place] [address] Vascular Surgery 07/17/22 Rk Smith 100 [facility] [address] [place] [address] Otolaryngology 01/14/25 Buck Hess DPM [address] [facility] [address] [place] [address] Podiatry 01/14/25 Rosanne Mosley 03/28/25 vEita Hanna Ironer Or PresserTour Actor 11/04/[address] [address] Physical Therapy 07/17/22 documented as of this encounter
--- OUTSIDE RECORDS SUMMARY | 2025-03-30 20:08 | XMS_ITS | Clinical Summary ---
Author Organization [facility] Address [address] [place] [address] Phone Care Team Providers Care Process Safety Specialist Name Role Phone Physician, No Pcp Primary Care Provider Unavaila ble Allergies Active Allergy Reactions Criticality Noted Date Comments Morphine 05/09/2024 Medications triamcinolone (KENALOG) 0.1 % cream Apply thin film to affected areas(s) four times daily. 15 g 5 026 Active Eliquis 5 mg tablet Take 1 tablet (5 mg total) by mouth 2 (two) times a day. Active levothyroxine (SYNTHROID, LEVOTHROID) 75 mcg tablet Take 1 tablet (75 mcg total) by mouth 1 (one) time each day before breakfast. 5 Active propranoloL (INDERAL) 10 mg tablet Take 1 tablet (10 mg total) by mouth 2 times daily. 5 Active zolpidem (AMBIEN) 10 mg tablet Take 1 tablet (10 mg total) by mouth at bedtime as needed for sleep. 9 Active atorvastatin (LIPITOR) 10 mg tablet Take 1 tablet (10 mg total) by mouth at bedtime. 5 025 Discontinued busPIRone (BUSPAR) 10 mg tablet Take 1 tablet (10 mg total) by mouth 2 times daily. 5 025 Discontinued Active Problems No known active problems Encounters Date Type Department Care Team Description 2025 6:43 PM EDT - 03/30/2025 1:41 PM EDT Emergency [facility] Emergency [address] [place] [id number] Zoie Florentino MD Wyman, Tim, MD Zaidi, MD Tonja Zurita, MD Bharath Scott, MD Isaac Ewing, MD Juana Willis, MD Rufina Betts Mathew, MD Medication overdose, intentional self-harm, initial encounter ([facility] V24, [facility] V28) (Primary Dx) Discharge Disposition: [facility] from Last 3 Months Medical History Medical History Date Comments Diabetes mellitus ([facility] V24, [facility] V28) Hypertension Social History Tobacco Use Types [...] Mass Index 30.02 03/26/2025 7:56 AM EDT Plan of Treatment Health Maintenance Due Date Last Done Comments Breast Cancer Screening 1967 Colorectal Cancer Screening: Colonoscopy 1967 Diabetes: Annual Foot Exam 1977 Cervical Cancer Screening: Pap Smear 1988 Social Influencers of Health Screening 05/11/2022 Diabetes: Annual Urine Albumin-Creatinine Ratio (uACR) 05/09/2024 Depression Screening 06/09/2024 Diabetes: Annual Retina Eye Exam 03/17/2025 03/17/2024 Diabetes: Blood Sugar Control Test (HGBA1C) 06/24/2025 12/22/2024, 01/06/2024 COVID-19 Vaccine (6 - Mixed Product risk season) 2025 03/08/2025, 05/14/2022, 05/27/2021, Additional history exists Diabetes: Annual GFR (Glomerular Filtration Rate) 2026 2025, 12/22/2024, 09/17/2024, Additional history exists Hypertension/CHF/CAD Annual BMP Blood Test 2026 2025, 12/22/2024, 09/17/2024, Additional history exists DTaP,Tdap,and Td Vaccines (2 - Td or Tdap) 04/09/2029 04/09/2019 Cholesterol Screening (Lipid Panel) 12/22/2029 12/22/2024, 12/19/2023 RSV Immunization Adult Patients (1 - 1-dose 75+ series) 2042 Zoster Vaccines Completed 12/31/2021, 09/06/2021 Pneumococcal Vaccine: 50+ Years Completed 03/11/2023, 04/09/2019 Hepatitis B Vaccines Completed 03/02/2024, 08/29/2023, 08/01/2023 HIV Screening Completed 12/22/2024, 07/23/2023 Hepatitis C Screening Completed 12/22/2024, 024 Influenza Vaccine Completed 03/08/2025, , 05/14/2022, Additional [...] PANEL, URINE STAT 03/26/2025 9:34 AM EDT METHADONE SCREEN, URINE STAT 03/26/20 9:34 AM EDT PHENCYCLIDINE, URINE STAT 03/26/2025 9:34 AM EDT BUPRENORPHINE SCREEN, URINE STAT 03/26/2025 9:34 AM EDT MAGNESIUM Add-On 2025 9:44 PM EDT ACETAMINOPHEN LEVEL Timed 2025 9 :44 PM EDT CBC WITH AUTO DIFFERENTIAL STAT 2025 9:44 PM EDT SALICYLATE LEVEL STAT 2025 9:44 PM EDT ETHANOL STAT 2025 9:44 PM EDT ACETAMINOPHEN LEVEL STAT 2025 9 :44 PM EDT THYROID STIMULATING HORMONE WITH REFLEX TO FREE T4 AND FREE T3 STAT 2025 9:44 PM EDT COMPREHENSIVE METABOLIC PANEL STAT 2025 9:44 PM EDT CBC AND DIFFERENTIAL STAT 2025 9:44 PM EDT from Last 3 Months Results * ECG 12 lead (03/30/2025 12:59 PM EDT) [facility] Ventricular Rate ECG 60 BPM GEMUSE Atrial Rate 60 BPM GEMUSE P-R Interval 198 ms GEMUSE QRS Duration 90 ms GEMUSE Q-T Interval 434 ms GEMUSE QTc 434 ms GEMUSE P Wave [place] 31 degrees GEMUSE R [place] 38 degrees GEMUSE T [place] 47 degrees GEMUSE ECG Interpretation Normal sinus rhythm Normal ECG When compared with ECG of 09-MAY-2024 14:44, No significant change was found Confirmed by Cherie HUERTAS JOHN ([id number]) on 03/30/2025 7:33:50 PM GEMUSE 03/30/2025 12:5 9 PM EDT 03/30/2025 7:33 PM EDT Zoie Florentino MD ECG ORDERABLES Final Result GEMUSE * POCT Glucose, blood (03/29/2025 8:22 AM EDT) Only the most recent of2 resultswithin the time period is included. [facility] Glucose POCT 85 70 - 100 mg/dL 03/29/2025 8:[address] [facility] Blood Capillary blood specimen / Unknown 03/29/2025 8:22 AM EDT 03/29/2025 8:31 AM EDT Everardo Gray MD LAB POINT OF CARE TEST DOCKED DEVICE UNSOLICITED RESULTS Final Result [facility] [address] [place] [address], [place] [phone] * Activated Partial Thromboplastin Time - STAT (03/26/2025 6:31 PM EDT) [facility] aPTT 32.6 24.1 - 39.3 sec LAB COAGULATION METHOD 03/26/2025 7:[address] [facility] Blood Venous blood specimen / Unknown Venipuncture / Unknown 03/26/2025 6:31 PM EDT 03/26/2025 6:53 PM EDT us Ayden Vera MD LAB BLOOD ORDERABLES Shelli l Result Performing Organization Address [facility]/ZIP Co de Phone Number [facility] [address] [place] [address], [place] [phone] * Prothrombin Time with INR - STAT (03/26/2025 6:31 PM EDT) [facility] Protime 12.3 10.6 - 13.9 sec LAB COAGULATION METHOD 03/26/2025 7:[address] [facility] INR 1.0 LAB COAGULATION METHOD 03/26/2025 7:[address] [facility] Blood Venous blood specimen / Unknown Venipuncture / Unknown 03/26/2025 6:31 PM EDT 03/26/2025 6:53 PM EDT us Ayden Vera MD LAB BLOOD ORDERABLES Shelli l Result Performing Organization Address [facility]/ZIP Co de Phone Number [facility] [address] [place] [address], [place] [phone] * (ABNORMAL) Drug abuse screen 8a panel, urine (03/26/2025 9:34 AM EDT) [facility] Amphetamine Screen, Ur Negative Negative LAB CHEMISTRY METHOD 10:[address] [facility] Comment:Certain OTC medicati ons containing ephedrine, phenylephrine, pseudoephedrine and phenylpropanolamine can cause false positive results. Barbiturate Screen, Ur Negative Negative LAB CHEMISTRY METHOD 10:[address] [facility] Benzodiazepine Screen, Ur Positive(A ) Negative LAB CHEMISTRY METHOD 10:[address] [facility] Cocaine Screen, Ur Negative Negative LAB CHEMISTRY METHOD 10:[address] [facility] Opiate Screen, Ur Negative Negative LAB CHEMISTRY METHOD 10:50 AM [facility] Cannabinoid (THC) Screen, Ur Negative Negative LAB CHEMISTRY METHOD 10:[address] [facility] Comment:Specimens from patie nts taking pantoprazole sodium (Protonix) have been shown to produce false positive results. Oxycodone Screen, Ur Negative Negative LAB CHEMISTRY METHOD 10:50 AM [facility] Fentanyl, Ur Negative Negative LAB CHEMISTRY METHOD 10:50 AM [facility] Urine Urine specimen obtained by clean catch procedure / Unknown Non-blood Collection / Unknown 03/26/2025 9:34 AM EDT 03/26/2025 10:[address] [facility] - 03/26/2025 10:50 AM EDT [...] MD LAB URINE ORDERABLES Final Res ult [facility] [address] [place] [address], * Buprenorphine screen, urine (03/26/2025 9:34 AM EDT) Buprenorphine Screen Urine Negative Negative LAB CHEMISTRY METHOD 03/26/2025 10:[address] [facility] Urine Urine specimen obtained by clean catch procedure / Unknown Non-blood Collection / Unknown 03/26/2025 9:34 AM EDT 03/26/2025 10:[address] [facility] - 03/26/2025 10:50 AM EDT Assay cutoff 5 ng/mL Semi-quantitative assay for screening purposes only. Unconfirmed screening result should not be used for non-medical purposes. *ALTERNATE METHOD CONFIRMATION DONE UPON REQUEST ONLY* us Zoie Florentino MD LAB URINE ORDERABLES Final Res ult Performing Organization Address [facility]/[place] Co de Phone Number [facility] [address] [place] [address], [place] [phone] * Methadone, urine (03/26/2025 9:34 AM EDT) Methadone Screen, Urine Negative Negative LAB CHEMISTRY METHOD 03/26/2025 10:[address] [facility] Comment: Assay cutoff 300 ng/mL [...] ORDERABLES Final Res ult Performing Organization Address City/[facility]/ZIP Co de Phone Number [facility] [address] [place] [address], [place] [phone] * Phencyclidine, urine (03/26/2025 9:34 AM EDT) PCP Scrn, Ur Negative Negative LAB CHEMISTRY METHOD 03/26/2025 10:[address] [facility] Comment: Assay cutoff 25 ng/mL [...] ORDERABLES Final Res ult Performing Organization Address [facility]/ZIP Co de Phone Number [facility] [address] [place] [address], [place] [phone] * Thyroid stimulating hormone with reflex to free t4 and free t3 (2025 9:44 PM EDT) TSH 2.35 0.40 - 4.00 mcIU/mL LAB CHEMISTRY METHOD 2025 11:[address] [facility] Blood Venous blood specimen / Unknown Venipuncture / Unknown 2025 9:44 PM EDT 2025 10:00 PM EDT Zoie Florentino MD LAB BLOOD ORDERABLES Final Res ult Performing Organization Address [facility]/[place] Co de Phone Number [facility] [address] [place] [address], [place] [phone] * (ABNORMAL) CBC auto differential (2025 9:44 PM EDT) WBC 3.9(L) 4.8 - 10.8 K/[facility] HEMETOLOGY METHOD 2025 10:[address] [facility] RBC 3.20(L) 3.80 - 4.80 M/[facility] LAB HEMETOLOGY METHOD 2025 10:[address] [facility] Hemoglobin 10.9(L) 11.5 - 16.0 g/dL LAB HEMETOLOGY METHOD 2025 10:[address] [facility] Hematocrit 32.6(L) 35.0 - 47.0 % LAB HEMETOLOGY METHOD 2025 10:[address] [facility] MCV 101.9(H) 79.0 - 98.0 FL LAB HEMETOLOGY METHOD 2025 10:[address] [facility] MCH 34.1(H) 27.0 - 32.0 pcg LAB HEMETOLOGY METHOD 2025 10:[facility] MCHC 33.4 32.0 - 37.0 g/dL LAB HEMETOLOGY METHOD 2025 10:07 [facility] RDW 13.0 11.0 - 15.0 % LAB HEMETOLOGY METHOD 2025 10:[address] [facility] Platelets 147 130 - 400 K/mcL LAB HEMETOLOGY METHOD 2025 10:07 [facility] MPV 10.0 7.0 - 11.0 FL LAB HEMETOLOGY METHOD 2025 10:07 [facility] NRBC 0.0 <1.0 % LAB HEMETOLOGY METHOD 2025 10:07 PM [facility] NRBC Absolute 0.00 <0.10 K/mcL LAB HEMETOLOGY METHOD 2025 10:07 PM [facility] Neutrophils Relative 72.5 % LAB HEMETOLOGY METHOD 2025 10:07 PM [facility] Lymphocytes Relative 16.8 % LAB HEMETOLOGY METHOD 2025 10:[address] [facility] Monocytes Relative 8.8 % LAB HEMETOLOGY METHOD 2025 10:[address] [facility] Eosinophils Relative 1.3 % LAB HEMETOLOGY METHOD 2025 10:[address] [facility] Basophils Relative 0.3 % LAB HEMETOLOGY METHOD 2025 10:[address] [facility] Immature Granulocytes Relative 0.3 % LAB HEMETOLOGY METHOD 2025 10:[address] [facility] Neutrophils Absolute 2.80 1.50 - 7.00 K/mcL LAB HEMETOLOGY METHOD 2025 10:[address] [facility] Lymphocytes Absolute 0.65(L) 1.00 - 5.00 K/mcL LAB HEMETOLOGY METHOD 2025 10:[address] [facility] Monocytes Absolute 0.34 0.20 - 1.00 K/mcL LAB HEMETOLOGY METHOD 2025 10:[address] [facility] Eosinophils Absolute 0.05 0.00 - 0.50 K/mcL LAB HEMETOLOGY METHOD 2025 10:[address] [facility] Basophils Absolute 0.01 0.00 - 0.20 K/mcL LAB HEMETOLOGY METHOD 2025 10:[address] [facility] Immature Granulocytes Absolute 0.01 0.00 - 0.03 K/mcL LAB HEMETOLOGY METHOD 2025 10:[address] [facility] Blood Venous blood specimen / Unknown Venipuncture / Unknown 2025 9:44 PM EDT 2025 10:00 PM EDT us Zoie Florentino MD LAB BLOOD ORDERABLES Final Res ult [facility] [address] [place] [address], * (ABNORMAL) Magnesium (2025 9:44 PM EDT) Magnesium 1.8(L) 1.9 - 2.6 mg/dL LAB CHEMISTRY METHOD 03/26/2025 12:[address] [facility] Blood Venous blood specimen / Unknown Venipuncture / Unknown 2025 9:44 PM EDT 2025 10:00 PM EDT Zoie Florentino MD LAB BLOOD ORDERABLES Final Res ult [facility] [address] [place] [address], * Ethanol (2025 9:44 PM EDT) Ethanol Level <3 0 - 10 mg/dL LAB CHEMISTRY METHOD 2025 10:[address] [facility] Blood Venous blood specimen / Unknown Venipuncture / Unknown 2025 9:44 PM EDT 2025 10:00 PM EDT Zoie Florentino MD LAB BLOOD ORDERABLES Final Res ult Performing Organization Address City/[facility]/ZIP Co de Phone Number [facility] [address] [place] [address], [place] [phone] * (ABNORMAL) Acetaminophen level (2025 9:44 PM EDT) Only the most recent of2 resultswithin the time period is included. Acetaminophen Level <2.0(L) 10.0 - 30.0 mcg/mL LAB CHEMISTRY METHOD 2025 10:[address] [facility] Blood Venous blood specimen / Unknown Venipuncture / Unknown 2025 9:44 PM EDT 2025 10:00 PM EDT us Zoie Florentino MD LAB BLOOD ORDERABLES Final Res ult Performing Organization Address [facility]/ZIP Co de Phone Number [facility] [address] [place] [address], [place] [phone] * (ABNORMAL) Salicylate level (2025 9:44 PM EDT) Salicylate Level <1.7(L) 2.0 - 29.0 mg/dL LAB CHEMISTRY METHOD 2025 10:[address] [facility] Blood Venous blood specimen / Unknown Venipuncture / Unknown 2025 9:44 PM EDT 2025 10:00 PM EDT us Zoie Florentino MD LAB BLOOD ORDERABLES Final Res ult Performing Organization Address City/[facility]/ZIP Co de Phone Number [facility] [address] [place] [address], [place] [phone] * (ABNORMAL) Comprehensive metabolic panel (2025 9:44 PM EDT) Sodium 145 133 - 145 mmol/L LAB CHEMISTRY METHOD 2025 10:[address] [facility] Potassium 3.6 3.5 - 5.5 mmol/L LAB CHEMISTRY METHOD 2025 10:[address] [facility] Chloride 113(H) 96 - 110 mmol/L LAB CHEMISTRY METHOD 2025 10:[address] [facility] CO2 27 21 - 32 mmol/L LAB CHEMISTRY METHOD 2025 10:[address] [facility] Anion Gap 5 3 - 11 LAB CHEMISTRY METHOD 2025 10:[address] [facility] Glucose 91 70 - 100 mg/dL LAB CHEMISTRY METHOD 2025 10:48 PM [facility] BUN 9 5 - 25 mg/dL LAB CHEMISTRY METHOD 2025 10:48 PM [facility] Creatinine 0.70 0.50 - 1.10 mg/dL LAB CHEMISTRY METHOD 2025 10:48 PM [facility] eGFR 100 >=60 mL/min/1. 73m2 LAB CHEMISTRY METHOD 2025 10:48 PM [facility] Comment:Calculation based on the Chronic Kidney Disease Epidemiology Collaboration (CKD-EPI) equation refit without adjustment for race. BUN/Creatinine Ratio 12.9 LAB CHEMISTRY METHOD 2025 10:48 PM [facility] Calcium 7.9(L) 8.5 - 10.5 mg/dL LAB CHEMISTRY METHOD 2025 10:48 PM [facility] AST (SGOT) 22 10 - 42 unit/L LAB CHEMISTRY METHOD 2025 10:48 PM [facility] ALT (SGPT) 24 10 - 60 unit/L LAB CHEMISTRY METHOD 2025 10:48 PM [facility] Alkaline Phosphatase 56 42 - 121 unit/L LAB CHEMISTRY METHOD 2025 10:48 PM [facility] Total Protein 5.2(L) 6.0 - 8.0 g/dL LAB CHEMISTRY METHOD 2025 10:48 PM [facility] Albumin 3.0(L) 3.2 - 5.0 g/dL LAB CHEMISTRY METHOD 2025 10:48 PM [facility] Total Bilirubin 0.4 0.0 - 1.4 mg/dL LAB CHEMISTRY METHOD 2025 10:48 PM [facility] Blood Venous blood specimen / Unknown Venipuncture / Unknown 2025 9:44 PM EDT 2025 10:00 PM EDT us Zoie Florentino MD LAB BLOOD ORDERABLES Final Res ult [facility] [address] [place] [address], [place] [phone] from Last 3 Months Insurance MEDICAID - [place] Care Teams Process Safety Specialist Relationship Specialty Start Date End Date Physician, No Pcp PCP - General 05/09/24
--- OUTSIDE RECORDS SUMMARY | 2025-03-30 20:08 | XMS_ITS | Encounter Summary ---
Author Organization [employer] Address [address] [facility] 7t [place] [address] Care Team Providers Care Closer On Name Role Phone Kristy Wilder MD Primary Care Pro vider Bradly Gonzalez MD Unavailable Rk Smith Unavailable Buck Hess DPM Unavailable [phone] Rosanne Mosley Unavailable Reason for Visit * Reason Comments Med Refill Encounter Details Date Type Department Care Team (Late st Contact Info) Description 09/10/2023 Refill [facility] [address] [place], [place] [phone] Kristy Wilder MD [address] [place], [place] [phone] Type 2 diabetes mellitus with diabetic polyneuropathy, without long-term current use of insulin ([facility]) Social History Tobacco Use Types Packs/Day Years [...] Description 04/15/2025 2:30 PM EST Office Visit [facility] OPTOMETRY [address] [place] [address] Yvonne Miller, OD [address] [place] [address] 04/27/2025 3:00 PM EST Office Visit [facility] [address] [place] [address] Zi Lozano DDS [address] [place] [address] 05/10/2025 1:30 PM EST Clinical Support [facility] [address] [place] [address] 05/16/2025 2:00 PM EST Telemedicine [facility] [address] [place] [address] Colette Diop, RN [address] [place] [address] documented as of this encounter Visit Diagnoses Diagnosis Type 2 diabetes mellitus with diabetic polyneuropathy, without long-term current use of insulin (HCC) documented in this encounter Additional Health Concerns Assessment Noted Time PHQ-9 Depression Total Score: 16 023 11:20 AM EDT documented as of this encounter Care Teams Closer On Relationship Specialty Start Date End Date Kristy Wilder MD [address] [place] [address] PCP - General Internal Medicine 12/26/22 Bradly Gonzalez MD [address] [place] [address] Vascular Surgery 07/17/22 Rk Smith [address] [place] [address] Otolaryngology 01/14/25 Buck Hess DPM [address] [facility] [address] [place] [address] Podiatry 01/14/25 Rosanne Mosley 03/28/25 Evita Hanna Dispatcher Bus And TrolleyAssistant Librarian 11/04/[address] [address] Physical Therapy 07/17/22 documented as of this encounter
--- OUTSIDE RECORDS SUMMARY | 2025-03-30 20:08 | XMS_ITS | Encounter Summary ---
Author Organization [employer] Address [address] [facility] 7 [place] [address] Care Team Providers Care Farm Equipment Engineer Name Role Phone Kristy Wilder MD Primary Care Pro vider Bradly Gonzalez MD Unavailable Rk Smith Unavailable Buck Hess DPM Unavailable [phone] Rosanne Mosley Unavailable Reason for Visit * Reason Onset Date Comments Nurse Triage 08/08/2023 Encounter Details Date Type Department Care Team (Late st Contact Info) Description 08/08/2023 Telephone [facility] [address] [place], [place] [phone] Kristy Wilder MD [address] [place], [place] [phone] Nurse Triage Social History Tobacco Use Types [...] EST Triage call returned to patient with [employer] Warehouse Manager [id number]. Patient with soft voice and weakness. Received [...] to access 911 EMS for transport to [facility] ED ( followed by [...] accepted this outcome Please contact pt at [phone] (Setswana) documented in this encounter Plan of Treatment Upcoming Encounters Date Type Department Care Team (Late st Contact Info) Description 04/15/2025 2:30 PM EST Office Visit [facility] OPTOMETRY [address] [place] [address] Yvonne Miller, OD [address] [place] [address] 04/27/2025 3:00 PM EST Office Visit [facility] [address] [place] [address] Zi Lozano DDS [address] [place] [address] 05/10/2025 1:30 PM EST Clinical Support [facility] [address] [place] [address] 05/16/2025 2:00 PM EST Telemedicine [facility] [address] [place] [address] Colette Diop, RN [address] [place] [address] documented as of this encounter Visit Diagnoses Not on filedocumented in this encounter Additional Health Concerns Assessment Noted Time PHQ-9 Depression Total Score: 16 023 11:20 AM EDT documented as of this encounter Care Teams Farm Equipment Engineer Relationship Specialty Start Date End Date Kristy Wilder MD [address] [place] [address] PCP - General Internal Medicine 12/26/22 Bradly Gonzalez MD [address] [place] [address] Vascular Surgery 07/17/22 Rk Smith [address] [place] [address] Otolaryngology 01/14/25 Buck Hess DPM [address] [facility] [address] [place] [address] Podiatry 01/14/25 Rosanne Mosley 03/28/25 Evita Hanna Slate HandlerSpecial Deputy Sheriff 11/04/24 [facility] CORE [address] [place] [id number] Physical Therapy 07/17/22 documented as of this encounter
--- OUTSIDE RECORDS SUMMARY | 2025-03-30 20:08 | XMS_ITS | Encounter Summary ---
Author Organization [employer] Address [address] [facility] 7t [place] [address] Care Team Providers Care Eyeglass Maker Name Role Phone Kristy Wilder MD Primary Care Pro vider Bradly Gonzalez MD Unavailable Rk Smith Unavailable Buck Hess DPM Unavailable [phone] Rosanne Mosley Unavailable Reason for Visit * [...] (Late st Contact Info) Description 02/11/2023 Refill [facility] [address] [place] [phone] Kristy Wilder MD [address] [place], [place] [phone] Primary insomnia; Chronic low back pain, unspecified [...] Description 04/15/2025 2:30 PM EST Office Visit [facility] OPTOMETRY [address] [place] [address] Yvonne Miller, OD [address] [place] [address] 04/27/2025 3:00 PM EST Office Visit [facility] [address] [place] [address] Zi Lozano DDS [address] [place] [address] 05/10/2025 1:30 PM EST Clinical Support [facility] [address] [place] [address] 05/16/2025 2:00 PM EST Telemedicine [facility] [address] [place] [address] Colette Diop, RN [address] [place] [address] documented as of this encounter Visit Diagnoses Diagnosis Primary insomnia Persistent disorder of initiating or maintaining sleep Chronic low back pain, unspecified back pain laterality, unspecified whether sciatica present documented in this encounter Additional Health Concerns Assessment Noted Time PHQ-9 Depression Total Score: 11 022 1:16 PM EST documented as of this encounter Care Teams Eyeglass Maker Relationship Specialty Start Date End Date Kristy Wilder MD [address] [place] [address] PCP - General Internal Medicine 12/26/22 Bradly Gonzalez MD [address] [place] [address] Vascular Surgery 07/17/22 Rk Smith [address] [facility] [address] [place] [address] Otolaryngology 01/14/25 Buck Hess DPM [address] [facility] [address] [place] [address] Podiatry 01/14/25 Rosanne Mosley 03/28/25 Evita Hanna Performance InstructorYarn Cleaner 11/04/24 [facility] [place] [address] [place] [address] Physical Therapy 07/17/22 documented as of this encounter
--- OUTSIDE RECORDS SUMMARY | 2025-03-30 20:08 | XMS_ITS | Encounter Summary ---
Author Organization [employer] Address [address] [facility] 7t [place] [address] Care Team Providers Care Neck Skewer Name Role Phone Khloe Fonseca Primary Care Provider Kristy Ring MD Primary Care Pro vider Bradly Gonzalez MD Unavailable Rk Smith Unavailable Buck Hess DPM Unavailable [phone] Rosanne Mosley Unavailable Reason for Visit * Reason Onset Date Comments pt1 10/16/2022 Encounter Details Date Type Department Care Team (Late st Contact Info) Description 10/16/2022 Telephone [facility] MEDICINE [address] [place] [id number] Khloe Fonseca FNP pt1 Social History Tobacco [...] Nannette Whittaker - 10/24/2022 10:19 AM EDT Livestock Sales Representative called and left voicemail for pt stating Pt1 Request was approved and she may call to schedule * Telephone Encounter - Nannette Whittaker - 10/24/2022 10:17 AM EDT Patient will recieve approval / denial letter via mail. PT-1 Request [id number] Pending - [facility] [address] [place] [address] Dr Holl[place] * Telephone Encounter - Eddie Sousa - 10/21/2022 10:14 AM EDT Tc from pt requesting status on PT1. Date: October 22, 2022 Time: 2:45 pm address:[address] [place] [address] specialty:Pulmonology Center # visits: window trimmer: no Wheelchair: no * Telephone Encounter - Marko Rodriguez - 10/16/2022 11:51 AM EDT Tc from pt requesting pt1 ride Date: october 22, 2022 Time: 2:45 pm address:[address] [place] [address] [place] [id number] specialty:Pulmonology Center # visits: window trimmer: no Wheelchair: no documented in this encounter Plan of Treatment Upcoming Encounters Date Type Department Care Team (Late st Contact Info) Description 04/15/2025 2:30 PM EST Office Visit [facility] OPTOMETRY [address] [place] [address] Paul, Yvonne, OD [address] [place] [address] 04/27/2025 3:00 PM EST Office Visit [facility] CHC ADULT DENTAL [address] [place] [address] Zi Lozano, DDS [address] [place] [address] 05/10/2025 1:30 PM EST Clinical Support [facility] MEDICINE [address] [place] [address] 05/16/2025 2:00 PM EST Telemedicine [facility] MED & PEDS [address] [place] [address] Colette Diop, RN [address] [place] [address] documented as of this encounter Visit Diagnoses Not on filedocumented in this encounter Additional Health Concerns Assessment Noted Time PHQ-9 Depression Total Score: 11 022 1:16 PM EST documented as of this encounter Care Teams Neck Skewer Relationship Specialty Start Date End Date Khloe Fonseca FNP PCP - General Family Medicine 02/05/22 12/25/22 Kristy Wilder MD [address] [place] [address] PCP - General Internal Medicine 12/26/22 Bradly Gonzalez MD [address] [place] [address] Vascular Surgery 07/17/22 Rk Smith 100 [facility] 100 [place] [address] Otolaryngology 01/14/25 Buck Hess DPM [address] [place] [address] [address] [place] [address] Podiatry 01/14/25 Rosanne Mosley 03/28/25 Evita Hanna Sheep StickerStorage Battery Inspector 11/04/24 [facility] [address] [place] [address] Physical Therapy 07/17/22 documented as of this encounter
--- OUTSIDE RECORDS SUMMARY | 2025-03-30 20:08 | XMS_ITS | Encounter Summary ---
Author Organization [employer] Address [address] [facility] 7t [place] [address] Care Team Providers Care Program Coordinator For Residence Life Name Role Phone Kristy Wilder MD Primary Care Pro vider Bradly Gonzalez MD Unavailable Rk Smith Unavailable Buck Hess DPM Unavailable [phone] Rosanne Mosley Unavailable Encounter Details Date Type Department Care Team (Late st Contact Info) Description 03/28/2025 Patient Outreach [facility] MEDICINE [address] [place] [address] Kristy Wilder MD [address] [place] [address] Social History Tobacco Use Types Packs/Day Years [...] as of this encounter Progress Notes * Jennifer Sahu RN - 03/28/2025 9:09 AM EDT [facility] assigned patient visited [facility] ED on 03/25/25. ED visit note has been scanned intopatient's chart. Notification sent to the Triage Nurse team to follow up with patient for ED statuscheck and medication reconciliation. * Cindy Villalpando RN - 03/28/2025 9:09 AM EDT Pt. Admitted to inpatient psych unit for attempted suicide. To f/up upon discharge documented in this encounter Plan of Treatment Upcoming Encounters Date Type Department Care Team (Late st Contact Info) Description 04/15/2025 2:30 PM EST Office Visit [facility] OPTOMETRY [address] [place] [address] Paul, Yvonne, OD [address] [place] [address] 04/27/2025 3:00 PM EST Office Visit [facility] CHC ADULT DENTAL [address] [place] [address] Zi Lozano DDS [address] [place] [address] 05/10/2025 1:30 PM EST Clinical Support [facility] MEDICINE [address] [place] [address] 05/16/2025 2:00 PM EST Telemedicine [facility] CHC MED & PEDS [address] [place], [place] [id number] Colette Diop, RN 505 [place], [place] documented as of this encounter Visit Diagnoses Not on filedocumented in this encounter Additional Health Concerns Assessment Noted Time PHQ-9 Depression Total Score: 14 025 11:30 AM EDT documented as of this encounter Care Teams Program Coordinator For Residence Life Relationship Specialty Start Date End Date Kristy Wilder MD [address] [place] [address] PCP - General Internal Medicine 12/26/22 Bradly Gonzalez MD [address] [place] [address] Vascular Surgery 07/17/22 Rk Smith 100 [facility] [address] [place] [address] Otolaryngology 01/14/25 Buck Hess DPM [address] [place] [address] [address] [place] [address] Podiatry 01/14/25 Rosanne Mosley 03/28/25 Evita Hanna Nurseryman AssistantSecurity Systems Specialist 11/04/24 [facility] [address] [place] [address] Physical Therapy 07/17/22 documented as of this encounter
[2025-03-30 21:05] VITALS: BP 116/57; PULSE 66
[2025-03-31 08:00] VITALS: BP 104/70; PULSE 60; RESP 18; TEMP 36.7; O2SAT 97
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
[2025-03-31 08:58] VITALS: BP 104/70; PULSE 60
--- NOTE | 2025-03-31 13:35 | MHC.CLN ---
CONSULT REPORTED 7# WEIGHT LOSS AND DECREASED APPETITE. REVIEW OF WEIGHT HX SHOWS WIDE RANGE OF FLUCTUATING WEIGHTS X ONE YEAR. COMPARING 03/25/24 WEIGHT=67 KG TO CURRENT WEIGHT 78 KG, SHOWS OVERALL WEIGHT GAIN X ONE YEAR +15.9%. WEIGHT 09/17/24=86.8 KG, SHOWING WEIGHT LOSS -10.1% X 6 MONTHS. PATIENT WITH HX RENAL CANCER. ADDING ENSURE BID TO PROMOTE NUTRITIONAL INTAKE. SUPPLEMENT PROVIDES [address], [address] AVAILABLE A NEEDED.
[2025-03-31 15:21] LABS: Cholesterol 181 mg/dL (<200); HDL Cholesterol 36 mg/dL (>40); Triglycerides 104 mg/dL (<150)
[2025-03-31 15:45] LABS: Hemoglobin A1C 127.1235 umol/L; Total Hemoglobin (HGBA1C) 3477.9753 umol/L
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
[2025-03-31 20:15] VITALS: BP 98/64; PULSE 73; RESP 16; TEMP 36.4; O2SAT 94
[2025-03-31 22:25] VITALS: BP 109/59; PULSE 67
[2025-04-01 07:37] VITALS: BP 99/62; PULSE 64; RESP 16; TEMP 37; O2SAT 98
--- NOTE | 2025-04-01 10:00 | PM.HEMONCCN ---
Subjective - Subjective Chief complaint: Consult for: RCCa. Patient: known to practice within the last 3 years Consult date: 04/01/25 Requesting Physician: Ev Wilson. Primary Care Provider: Kristy Mosley MD Family Provider: Pelon. Medical Summary: DIAGNOSIS: RCCa. 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 Narrative: Krys Travis is a 60 year old lady admitted to psychiatry. She presented to [facility] with an intentional self-harm medication overdose with Ambien and oxycodone.. Metabolic panel within normal limits, acetaminophen level elevated. CBC reveals mild anemia, TSH within normal limits. On exam patient asked to go home several times. She denies any physical complaints. Reports occasional pain in her port site. No redness, warmth or swelling noted. For metastatic renal cancer. She had cycle 24 day 21 of Novolumab immunotherapy, on 02/03. Subsequently she elected to take a break from treatment. Review of Systems: She is physically doing very well. Energy level is good. Denies fever chills or night sweats. Denies any headache no dizziness. She denies chest pain or trouble breathing. Sometimes she gets pain on the side of the abdomen. This is likely to be chronic incisional abdominal pain. She gets occasional heartburn. Her bowels are moving, regular. No gross blood there. She has been eating well. She has gained weight. She denies any urinary complaints. No dysuria or hematuria. Previously noted blisters involving bilateral hands and feet have resolved. She is in good spirits, The rest of the review of systems is unremarkable. INTERIM HISTORY: Back on 05/09, she was seen in the emergency room at [facility] for headache, fever, cough with sputum nausea vomiting and diarrhea. She had body aches. She was diagnosed with rhino-virus infection. Her magnesium was found to be low. She was given Tessalon Perles and magnesium supplement. INTERIM HISTORY: She had a Port-A-Cath placed here on 03/13/[address] Silva. She was admitted to [facility] 04/09. She complained of pain at the Port-A-Cath site. She had some nose bleed. Chest x-ray revealed no acute pulmonary disease. Right IJ port present with the catheter tip in good position at the mid to lower superior vena cava. No pneumothorax. The Port-A-Cath was removed for unclear reasons, possibly the pain. PREVIOUS HISTORY: She had a CT scan of chest/abd/pelvis on 12/05 which revealed: IMPRESSION: 1. Several previously visualized subcentimeter pulmonary nodules are again noted, most of which are relatively stable in size although a few demonstrate minimal interval increase in size, for example a 5 mm left lower lobe pulmonary nodule previously measured 4 mm. Also noted are a few new pulmonary nodules which were not definitively visualized previously, for example a 5 mm right lower lobe pulmonary nodule was not definitively visualized previously. Findings are concerning for metastatic disease. 2. Diffusely decreased liver attenuation suggesting hepatic steatosis. Correlation with liver enzymes recommended. 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 She had some pain at the biopsy site. [facility] Medical History: Medical History (Last Reviewed 03/17/25 @ 13:30 by Jaspreet Eduardo) Anxiety Clear cell carcinoma of right kidney Depression Pulmonary nodules Right renal mass Family History: Family History (Last Reviewed 03/17/25 @ 13:30 by Jaspreet Eduardo) Maternal Uncle Stomach cancer Maternal Aunt Stomach cancer Paternal Aunt Colon cancer Sister Liver cancer Sister Skin cancer Surgical History: Surgical History (Last Reviewed 03/17/25 @ 13:30 by Jaspreet Eduardo) History of esophagogastroduodenoscopy (EGD) Hx of colonoscopy S/P skin biopsy Status post hysterectomy Social History: Social History (Last Reviewed 03/17/25 @ 13:30 by Jaspreet Eduardo) Living Situation History: Household Members: None Housing: Apartment Are you a primary cattle care worker to a significant other at home: No Do you presently have visiting nurse or other home services: Yes Tobacco History: Patient Tobacco Use Status: Never used Tobacco Occupation Assessmet: service: No Current occupational status: unemployed Sex/Gender Assessment: Sexual orientation: Straight/Heterosexual Home Medications and Allergies Current Medications: Current Medications Acetaminophen (Acetaminophen 325 Mg Tablet) 650 mg PO Q6H PRN PRN Reason: Headache/Pain, Scale 1-10 Last Admin: 03/31/25 22:24 Dose: 650 mg Al Hydroxide/Mg Hydroxide (Magnesium Hydrox/Alum Hydrox 30 Ml Oral.Susp) 30 ml PO Q6H PRN PRN Reason: Heartburn/Nausea Apixaban (Apixaban 5 Mg Tablet) 5 mg PO BID [facility] Last Admin: 04/01/25 08:34 Dose: 5 mg Docusate Sodium (Docusate Sodium 100 Mg Capsule) 100 mg PO BEDTIME PRN PRN Reason: Constipation Last Admin: 03/31/25 22:24 Dose: 100 mg Famotidine (Famotidine 20 Mg Tablet) 20 mg PO DAILY [facility] Last Admin: 04/01/25 08:34 Dose: 20 mg Hydroxyzine HCl (Hydroxyzine Hcl 25 Mg Tablet) 25 mg PO Q6H PRN PRN Reason: mild anxiety Levothyroxine Sodium (Levothyroxine Sodium 75 Mcg Tablet) 75 mcg PO DAILY@0600 [facility] Last Admin: 04/01/25 07:35 Dose: 75 mcg Magnesium Hydroxide (Milk Of Magnesia 30 Ml Oral.Susp) 30 ml PO DAILY PRN PRN Reason: Constipation Multivitamins/Vitamin C (Multivitamin Tablet) 1 tab PO DAILY [facility] Last Admin: 04/01/25 08:34 Dose: 1 tab Propranolol HCl (Propranolol Hcl 10 Mg Tablet) 10 mg PO BID [facility]; Protocol Last Admin: 04/01/25 08:34 Dose: 10 mg Risperidone (Risperidone 0.5 Mg Tablet) 0.5 mg PO BID PRN PRN Reason: agitation Last Admin: 03/31/25 22:24 Dose: 0.5 mg Sertraline HCl (Sertraline Hcl 100 Mg Tablet) 100 mg PO DAILY [facility] Last Admin: 04/01/25 08:34 Dose: 100 mg Trazodone HCl (Trazodone Hcl 50 Mg Tablet) 50 mg PO BEDTIME MRX1 PRN PRN Reason: insomnia Last Admin: 03/31/25 22:25 Dose: 50 mg Zolpidem Tartrate (Zolpidem Tartrate 5 Mg Tablet) 5 mg PO BEDTIME [facility] Last Admin: 03/31/25 22:25 Dose: 5 mg Home Medications ?Medication ?Instructions ?Recorded ?Confirmed ?Type metformin 500 mg tablet 500 mg PO BID 09/18/20 03/17/25 History lancets 33 gauge (TRUEplus Lancets) #100 ea 04/05/21 03/17/25 History multivitamin 1 tab PO QAM 08/14/23 03/17/25 History naloxone 4 mg/actuation nasal spray 4 mg intranasal DAILY 08/14/23 03/17/25 History Allergies Allergy/AdvReac Type Severity Reaction Status Date / Time phenylephrine (From CONTAC-D Allergy Unknown EDEMA Verified 03/17/25 13:31 COLD (PE)) morphine Allergy Rash Verified 03/17/25 13:31 Contac-D Allergy Unknown Unknown Uncoded 03/17/25 13:31 Physical Exam Vital signs: Vital Signs Temp 98.6 F 04/01/25 07:37 Pulse 64 04/01/25 07:37 Resp 16 04/01/25 07:37 BP 99/62 04/01/25 07:37 Pulse Ox 98 04/01/25 07:37 O2 Del Method Room Air 04/01/25 07:37 Weight 78.018 kg Assessment and Plan Patient Active problem list reviewed?: Yes (1) Clear cell carcinoma of right kidney Problem details: status post nephrectomy, at [facility] in January. 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 Marilyn grade 3. Stage IIIA, with renal vein extention. Stutent started on June 17. Status: Acute Assessment and plan: This is the pleasant 60 year-old lady with a diagnosis of Clear Cell Carcinoma of the right Kidney. She had a nephrectomy back in January,, by Dr. Hui at [facility]. Pathology: 9.5 cm clear cell type, Marilyn grade 3. Pathologic stage: PT3a, Nx. Renal Vein with tumor thrombus, 1 cm away from the renal vein surgical margin. Perinephric fat is focally involved by the tumor. Resection margins are negative for tumor. Non neoplastic renal parenchyma with changes associated with prior therapeutic embolization of the right renal artery. Adrenal gland: Negative for tumor. Negative for IMP3. ( IMP3 is an independent and reliable prognostic marker that can be used at initial diagnosis of localized renal cell carcinoma. IMP3 positive renal cell carcinoma are it significantly greater risk for the development of distant mets following nephrectomy.) According to the NCCN guidelines, with stage III tumor, she would benefit from adjuvant Sunitinib therapy. I shared this information with her. She was started on Sutent 50 mg daily for 4 weeks, with 2 weeks break. She had CT chest abdomen and pelvis on 02/23/21, to follow up on these: IMPRESSION: New bilateral lower lobe pulmonary nodules, largest measuring 4 mm in the left lower lobe. Fatty liver. Postoperative changes following right radical nephrectomy. No evidence of recurrent or metastatic disease. I rechecked CT chest/abdomen and pelvis on 02/26/2021: New bilateral lower lobe pulmonary nodules, largest measuring 4 mm in the left lower lobe. Fatty liver. Postoperative changes following right radical nephrectomy. No evidence of recurrent or metastatic disease. She had ultrasound of the abdomen 09/04/2021: It revealed: Small anechoic cyst midpole left kidney. No echogenic stones or hydronephrosis seen. CT chest and abdomen,were done on 07/04/22 for restaging: Status post right nephrectomy and adrenalectomy. The left kidney and left adrenal gland is unremarkable. No retroperitoneal or pelvic lymph node seen. mild constipation. Multiple bilateral small pulmonary nodules, suspicious. The largest nodule measures 6 [address] She had a [address] scan of chest/abd/pelvis on 12/05/22 which revealed: IMPRESSION: 1. Several previously visualized subcentimeter pulmonary nodules are again noted, most of which are relatively stable in size although a few demonstrate minimal interval increase in size, for example a 5 mm left lower lobe pulmonary nodule previously measured 4 mm. Also noted are a few new pulmonary nodules which were not definitively visualized previously, for example a 5 mm right lower lobe pulmonary nodule was not definitively visualized previously. Findings are concerning for metastatic disease. 2. Diffusely decreased liver attenuation suggesting hepatic steatosis. Correlation with liver enzymes recommended. 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 I recommended second-line immunotherapy according to the NCCN guidelines. Cabozantinib and nivolumab are identified as the most reasonable therapeutic options for patients progressing after first-line treatment. The efficacy was evaluated in check [facility]-9 study randomized open label trial in patient with previously untreated advanced RCC. Nivolumab 240 mg over 30 minutes every 2 weeks in combination with cabozantinib 40 mg orally once daily. Trial showed statistically significant improvement in progression free and overall survival. I proceeded with imaging. CT scan of the chest abdomen pelvis from 05/26/23 revealed: 1. Significant decrease in size of pulmonary nodules. No new pulmonary nodules are seen. 2. No hepatic metastatic disease, local recurrence or intra-abdominal/pelvic adenopathy status post nephrectomy. 3. There is new thrombus present in the left renal vein which appears to emanate from (or extend into) the left gonadal vein. 4. Other incidental findings including small ventral hernia containing only fat. She has been able to tolerate the immunotherapy treatment very well. She had the CT scans of chest abdomen and pelvis on 03/10/24. Results: Stable subcentimeter groundglass nodules, left lung. No tumor recurrence or metastatic disease. Stable. This is reassuring. She elected to take a break from treatment after cycle 19 on 06/24/2024. Repeat imaging from 08/13/2024 revealed: 1. Enlarging pulmonary nodules highly concerning for metastatic disease. The largest nodule within the left lower lobe measures up to 8 mm on the current study, previously 4 mm. She enjoyed the break. She had been eating better gaining weight. She resumed Immunotherapy. Scan of the chest abdomen pelvis from 01/05 revealed: 1. The previously seen subcentimeter bilateral pulmonary nodules are either smaller in size or are no longer apparent. 2. Status post right nephrectomy. Otherwise unremarkable contrast-enhanced CT of the abdomen and pelvis. This is great news. She received cycle 24 day 21 of nivolumab immunotherapy on 02/03. We decided to give her a break since she has completed 2 years of immunotherapy. She also stopped the Cabozantinib after a couple of weeks. She is feeling wel, physicallyl. She is enjoying the break. PLAN: Her TSH has been fluctuating, needs to be followed. I will proceed with another CAT scan of the chest end of the month. She will return for follow-up in the office in 4 weeks. All questions were answered to her satisfaction. I will closely follow her along. Thank you, CC: Kristy Mosley MD - Time Spent With Patient Time Spent with Patient (in minutes): 30
--- NOTE | 2025-04-01 18:10 | P.DS_ITS ---
DS: Providers Provider Date of Service: 04/01/25 Date of admission: 03/30/25 13:59 Date of discharge: 04/01/25 Primary care physician: Kristy Mosley MD Attending physician on admission: Ev Wilson Consults: 03/30/25 16:24 Consult to Hematology / Oncology Routine Consulting Provider: [facility] [place]ology Reason for consultation: hx metastatic cancer, patient of Dr. Erickson Attending physician on discharge: Ev Wilson DS: Diagnosis Discharge Diagnosis (1) Adjustment disorder with mixed disturbance of emotions and conduct: Status: Acute (2) Depressive disorder: Status: Acute (3) Anxiety disorder: Status: Acute (4) Clear cell carcinoma of right kidney: Status: Acute DS: Medications Discharge Medications Home Medications: Home Medications ?Medication ?Instructions ?Recorded ?Confirmed metformin 500 mg tablet 500 mg PO BID 09/18/2003/17 lancets 33 gauge (TRUEplus Lancets) #100 ea 04/05/21 1 multivitamin 1 tab PO QAM 08/14/23 naloxone 4 mg/actuation nasal spray 4 mg intranasal DA DAMIAN 08/14/23 03/17/25 Previous Rx's ?Medication ?Instructions ?Recorded ondansetron 8 mg disintegrating 8 mg PO Q8H #60 tabs 0 01/02/23 tablet butenafine 1 % topical cream 1 appl topical BID #45 gr ams 07/24/23 (Lotrimin Ultra) lidocaine 5 % topical cream 1 appl topical QWEEK #45 g edith 09/16/23 Magic Mouthwash 10 ml PO QID #240 mL 4 Diphen/Lido/Antacid 1:1:1 240 mL suspension butenafine 1 % topical cream 1 appl topical BID #45 gr ams 06/24/24 (Lotrimin Ultra) [id number] 1 cap PO Q4-6H PRN h eadache #10 09/17/24 50 mg-300 mg-40 mg capsule caps (Fioricet) triamcinolone acetonide 0.05 % 1 appl topical BID #70 grams 10/07/24 topical ointment apixaban 5 mg tablet (Eliquis) 5 mg PO BID #60 tabs cabozantinib 40 mg tablet 40 mg PO DAILY #90 tabs 02/08 10/01 (Cabometyx) acetaminophen 325 mg tablet 650 mg (2 x 325 mg) PO Q6H PRN 04/01/25 Headache/Pain, Scale 1-10 #0 tabs atorvastatin 10 mg tablet 10 mg PO BEDTIME 30 days #30 tabs 04/01/25 docusate sodium 100 mg capsule 100 mg PO BEDTIME PRN C onstipation 04/01/25 30 days #0 caps famotidine 20 mg tablet 20 mg PO DAILY 30 days #30 t abs 04/01/25 levothyroxine 75 mcg tablet 75 mcg PO DAILY@0600 30 da ys #30 04/01/25 tabs propranolol 10 mg tablet 10 mg PO BID 30 days #60 tab s 04/01/25 risperidone 0.5 mg tablet 0.5 mg PO DAILY PRN agitatio n or 04/01/25 severe anxiety 30 days #30 tabs sertraline 100 mg tablet 100 mg PO DAILY 30 days #30 tabs 04/01/25 sertraline 100 mg tablet 100 mg PO DAILY 30 days #30 tabs 04/01/25 trazodone 50 mg tablet 50 mg PO BEDTIME MRX1 PRN in somnia 04/01/25 60 days #30 tabs zolpidem 5 mg tablet 5 mg PO BEDTIME PRN insomnia 30 04/01/25 days #30 tabs Mental Status Exam Mental Status Exam Narrative: Appearance:Dressed in hospital gown. Grooming/hygiene wnl. Good eye contact Attitude:Cooperative Speech: Fluent and wnl in regard to volume, tone, prosody ([place] Citizen speaking, utililized interpereter) Motor activity: Calm and without any tics, tremors or dyskinesias. Steady gait Mood: much better Affect: appropriate, reactive, generally bright Thought process: goal directed and without evidence of formal thought disorder Thought content: denied SI,thought of non-suicidal self harm or violent ideation Perception: Denies AH/VH and does not appear to respond to internal stimuli Alert/oriented in all spheres Cognition grossly intact Insight: intact Judgment: intact Data Data Completed and Pending Completed studies during hospitalization [Text1]: 03/31/25 14:55 Estimat Average Glucose 111 Hemoglobin A1c % 5.5 Triglycerides 104 Cholesterol 181 LDL Cholesterol, Calc 125 H HDL Cholesterol 36 L DS: Summary Hospital Course Hospital Course: Ms. Matias Travis is a 60 y/o [place] Citizen speaking [place] F with h/o depression, anxiety, previous suicide attempts and metastatic clear renal cell carcinoma, s/p nephrectomy in Jan 2019 (on chemotherapy) who was brought to the [facility] ED on 04/04/25 via EMS after she was found unresponsive, following ingestion of unknown amount of oxycodone and zolpidem. She responded well to Narcan per EMS. She was transferred to [facility] for tx of depression and SI after she was medically cleared. Pt was interviewed with a diplomatic interpreter/translator. She reported on the day of admission on M3 that she has been stressed with her adult son and her cancer dx. She declined to go into detail re: her issues with her son, as she wanted to keep his personal information private. She reports that she was dx'd/treated for ca 5 yrs ago and then experienced a relapse. She has been undergoing chemotherapy, which had previously caused hair loss, fatigue, and may have contributed to some memory issues that she's been experiencing. Her oncologist, Dr. Johnson, was notified of her hospitalization and met with her during her inpt psychiatric admission. Pt will f/u with him next month. Pt was admitted on a CV. She was continued on her home medications, including sertraline 100 mg qd, zolpidem (which was tapered down from 10 mg to 5 mg since she reported that it was less helpful after taking it for yrs and due to her recent o/d on ambien + oxycodone). She was started on trazodone 50 mg qhs + 50 mg qhs prn, which she stated was more effective than the Ambien. She was started on risperidone .5 mg qd prn for severe anxiety/agitation (off-label). R/B/A of these medications were reviewed with the pt. She denied any side effects. She was calm and cooperative and denied SI throughout her admission. She expressed regret over the overdose and stated that she had just wanted to sleep since the stress over her son had kept her up at night prior to admission. She denied that she was trying to end her life but acknowledged that the overdose could have killed her, given that she was found unresponsive. She attended some groups and worked on coping skills to manage anxiety. She advocated to be discharged home, where she feels more physically comfortable and can care for her plants. We collaborated on a safety plan that includes calling Crisis, 911 or going to the nearest ED in the future if she is feeling overwhelmed and unsafe. She has a visiting nurse who can dispense all of her medications to reduce the risk of overdose. T/W felt that pt was safe and appropriate for discharge home on 04/02/25. She plans to follow up with her outpatient psychiatric provider, therapist and oncologist after discharge. Status at Discharge Functional status at discharge: independent ambulation Overall status at discharge: patient is back to baseline Time Spent with Patient Time attestation: Total time managing care of this patient today _45___ minutes. Time spent: Greater than 30 minutes Specific discharge activities: Chart review, patient interview, discharge planning Discharge Plan Discharge Anticipated Discharge Date/Time: 04/01/25 13:33 Patient Disposition: Home, Self-Care Discharge Diagnosis: depression, unspecified Referrals: [facility] [Other] - 1 Week Referral Note: Please follow up with your providers at [facility] Walk in hours are Friday-Friday 8am-8pm, weekend hours 9am-5pm Kristy Wilder MD [Primary Care Provider, Internal Medicine] - 1 Week Discharge Medications: New acetaminophen 325 mg Tablet 650 mg PO Q6H PRN (Reason: Headache/Pain, Scale 1-10) Qty: 0 0RF risperidone 0.5 mg Tablet 0.5 mg PO DAILY PRN (Reason: agitation or severe anxiety) 30 Days Qty: 30 0RF trazodone 50 mg Tablet 50 mg PO BEDTIME MRX1 PRN (Reason: insomnia) 60 Days Qty: 30 0RF zolpidem 5 mg Tablet 5 mg PO BEDTIME PRN (Reason: insomnia) 30 Days Qty: 30 0RF docusate sodium 100 mg Capsule 100 mg PO BEDTIME PRN (Reason: Constipation) 30 Days Qty: 0 0RF famotidine 20 mg Tablet 20 mg PO DAILY 30 Days Qty: 30 0RF levothyroxine 75 mcg Tablet 75 mcg PO DAILY@0600 30 Days Qty: 30 0RF sertraline 100 mg Tablet 100 mg PO DAILY 30 Days Qty: 30 0RF Continued Cabometyx 40 mg Tablet 40 mg PO DAILY Qty: 90 0RF metformin 500 mg Tablet 500 mg PO BID ondansetron 8 mg Tablet,Disintegrating 8 mg PO Q8H Qty: 60 4RF butenafine [Lotrimin Ultra] 1 % Cream 1 appl TOPICAL BID Qty: 45 2RF multivitamin Tablet 1 tab PO QAM naloxone 4 mg/actuation spray,non-aerosol 4 mg intranasal DAILY lidocaine 5 % Cream 1 appl TOPICAL QWEEK Qty: 45 3RF Magic Mouthwash Diphen/Lido/Antacid 1:1:1 240 mL Suspension 10 ml PO QID Qty: 240 4RF Rx Instructions: Lidocaine Viscous 2 % 80mL; diphenhydramine 12.5 mg/5 mL 80mL; aluminum-mag hydrox-simeth [id number]/5mL 80mL butenafine [Lotrimin Ultra] 1 % Cream 1 appl TOPICAL BID Qty: 45 5RF triamcinolone acetonide 0.05 % Ointment 1 appl TOPICAL BID Qty: 70 0RF Rx Instructions: Apply a thin layer to the affected areas twice a day for up to 2 weeks. Eliquis 5 mg Tablet 5 mg PO BID Qty: 60 3RF [id number]-ijfstxrldysir-ravl [Fioricet] 50-300-40 mg capsule 1 cap PO Q4-6H PRN (Reason: headache) Qty: 10 0RF sertraline 100 mg tablet 100 mg PO DAILY 30 Days Qty: 30 0RF propranolol 10 mg tablet 10 mg PO BID 30 Days Qty: 60 0RF (DME) lancets [TRUEplus Lancets] 33 gauge misc See Rx Instructions Not Applicable TID Qty: 100 Rx Instructions: As directed Changed atorvastatin 10 mg tablet 10 mg PO BEDTIME 30 Days Qty: 30 0RF Discontinued losartan 25 mg Tablet 25 mg PO DAILY docusate sodium 100 mg capsule 1 cap PO BEDTIME PRN (Reason: Constipation) famotidine 20 mg tablet 20 mg PO DAILY levothyroxine 25 mcg tablet 75 mcg PO DAILY oxycodone 5 mg tablet 5 mg PO Q12H PRN (Reason: severe pain) zolpidem 10 mg tablet 10 mg PO BEDTIME Discharge Orders: Discharge Order (Routine); Ordered 04/01/25 Ordered By: Ev Wilson Diet: Regular diet Activity on Discharge: As tolerated Stand Alone Forms: Patient Portal Discharge page, Community Support Print Language: [place] Citizen Care Plan Goals: Maintain safe behaviors Practice coping skills Take medications as prescribed Maintain regular follow-ups with your outpatient providers Health Concerns: Mood stability and behaviors Clear cell carcinoma of R kidney- follow-up with your oncologist Plan of Treatment: Follow up with your psychiatric provider, PCP and oncologist Take your medication as prescribed Assessment: Risk assessment at the time of discharge: Patient was interviewed on the day of discharge and found to be fully oriented, without any SI or violent ideation. Pt has improved insight and judgment She plans to follow up with her psychiatric provider, therapist, PCP and oncologist Pt is not at [facility] risk of harm to self or others and has a safety plan that includes presenting to the closest ER or calling 911 if feeling unsafe. Pt has been observed closely by unit staff and has not engaged in any behaviors that suggest dangerous to self or others and has demonstrated appropriate bheaviors and impulse control. Discharge Date/Time: 04/01/25 15:19
--- OUTSIDE RECORDS SUMMARY | 2025-04-30 20:00 | XMS_ITS | Clinical Summary ---
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 Care Account Strategist Name Role Phone ANDREINA MENCHACA, CLARENCE Unavailable Unavailable TATI NARVAEZ, ALBERTA Unavailable Unavailable Payers Payer Name Policy Type Policy Number Effective Date Expira tion Date MEDICAID [facility] [id number] Problems Condition Name Condition Details Condition Category [...] 06-25 00:00: 00 09-01 23:59 :00 No [id number] 5 mg BEDTIME 5 mg BEDTIME (route: oral) Med Classific ation: Central Nervous System Agents buspirone 7.5 mg tablet 06-25 00:00: 00 09-01 23:59 :00 No [id number] 7.5 mg 2 TIMES DAILY 7.5 mg 2 TIMES DAILY (route: oral) Med Classific ation: Central Nervous System Agents Eliquis 5 mg tablet 06-25 00:00: 00 09-01 23:59 :00 No [id number] 5 mg 2 TIMES DAILY 5 mg 2 TIMES DAILY (route: oral) Med Classific ation: Hematolog ical Agents famotidine 20 mg tablet 06-25 00:00: 00 09-01 23:59 :00 No [id number] 20 mg 2 TIMES DAILY 20 mg 2 TIMES DAILY (route: oral) Med Classific ation: Gastroint estinal Therapy Agents levothyroxi ne 112 mcg tablet 06-25 00:00: 00 09-01 23:59 :00 No [id number] 112 mcg EVERY AM 112 mcg EVERY AM (route: oral) Med Classific ation: Endocrine losartan 25 mg tablet 06-25 00:00: 00 09-01 23:59 :00 No [id number] 25 mg NOON 25 mg NOON (route: oral) Med Classific ation: Cardiovas cular Therapy Agents metformin 500 mg tablet 06-25 00:00: 00 09-01 23:59 :00 No [id number] 500 mg DIRECTED 500 mg DIRECTED (route: oral) Med Classific ation: Endocrine mirtazapine 7.5 mg tablet 06-25 00:00: 00 09-01 23:59 :00 No [id number] 7.5 mg BEDTIME 7.5 mg BEDTIME (route: oral) Med Classific ation: Central Nervous System Agents Narcan 4 mg/actuatio n nasal spray 06-25 00:00: 00 09-01 23:59 :00 No [id number] 2 spray DIRECTED 2 spray DIRECTED (route: nasal) Med Classific ation: Antidotes and other Reversal Agents ondansetron 4 mg disintegrat ing tablet 06-25 00:00: 00 09-01 23:59 :00 No [id number] 4 mg EVERY 8 HOURS 4 mg EVERY 8 HOURS (route: oral) Med Classific ation: Gastroint estinal Therapy Agents oxycodone 5 mg tablet 06-25 00:00: 00 09-01 23:59 :00 No [id number] 5 mg EVERY 12 HOURS 5 mg EVERY 12 HOURS (route: oral) Med Classific ation: Analgesic , Anti-infl ammatory or Antipyret ic propranolol 10 mg tablet 06-25 00:00: 00 09-01 23:59 :00 No [id number] 17 mg 2 TIMES DAILY 17 mg 2 TIMES DAILY (route: oral) Med Classific ation: Cardiovas cular Therapy Agents sertraline 100 mg tablet 06-25 00:00: 00 09-01 23:59 :00 No [id number] 100 mg NOON 100 mg NOON (route: oral) Med Classific ation: Central Nervous System Agents buspirone 10 mg tablet 09-05 00:00: 00 Yes [id number] 1 tablet 2 TIMES DAILY 1 tablet 2 TIMES DAILY (route: oral) Med Classific ation: Central Nervous System Agents Colace 100 mg capsule 09-04 00:00: 00 Yes [id number] 1 capsule BEDTIME 1 capsule BEDTIME (route: oral) Med Classific ation: Gastroint estinal Therapy Agents Eliquis 5 mg tablet 09-04 00:00: 00 Yes [id number] 1 tablet 2 TIMES DAILY 1 tablet 2 TIMES DAILY (route: oral) Med Classific ation: Hematolog ical Agents levothyroxi ne 112 mcg tablet 09-04 00:00: 00 Yes [id number] 1 tablet EVERY AM 1 tablet EVERY AM (route: oral) Med Classific ation: Endocrine losartan 25 mg tablet 09-04 00:00: 00 Yes [id number] 1 tablet NOON 1 tablet NOON (route: oral) Med Classific ation: Cardiovas cular Therapy Agents metformin 500 mg tablet 09-04 00:00: 00 Yes [id number] 1 tablet EVERY AM 1 tablet EVERY AM (route: oral) Med Classific ation: Endocrine metformin 500 mg tablet 09-05 00:00: 00 Yes [id number] 2 tablet EVERY PM 2 tablet EVERY PM (route: oral) Med Classific ation: Endocrine Pepcid 20 mg tablet 09-04 00:00: 00 Yes [id number] 1 tablet 2 TIMES DAILY 1 tablet 2 TIMES DAILY (route: oral) Med Classific ation: Gastroint estinal Therapy Agents propranolol 10 mg tablet 09-04 00:00: 00 Yes [id number] 1 tablet 2 TIMES DAILY 1 tablet 2 TIMES DAILY (route: oral) Med Classific ation: Cardiovas cular Therapy Agents sertraline 100 mg tablet 09-04 00:00: 00 Yes [id number] 1 tablet NOON 1 tablet NOON (route: oral) Med Classific ation: Central Nervous System Agents mirtazapine 45 mg tablet 09-04 00:00: 00 Yes [id number] 1 tablet BEDTIME 1 tablet BEDTIME (route: oral) Med Classific ation: Central Nervous System Agents hydroxyzine HCl 10 mg tablet 09-04 00:00: 00 Yes [id number] 1-2 tablet 2 TIMES DAILY 1-2 tablet 2 TIMES DAILY (route: oral) Med Classific ation: Central Nervous System Agents Vital Signs Vital Name Observation Time Observation Value Commen ts Temperature 2025-03-21 16:30:00.000 96.8 [degF] Temperature 2025-03-14 17:28:00.000 96.7 [degF] Temperature 2025-03-09 15:51:00.000 97.2 [degF] Pulse 2025-03-21 16:30:00.000 80 /min Pulse 2025-03-14 17:31:00.000 70 /min Pulse 2025-03-09 15:51:00.000 68 /min O2 Saturation (%) 2025-03-21 16:30:00.000 98 % O2 Saturation (%) 2025-03-14 17:31:00.000 96 % O2 Saturation (%) 2025-03-09 15:51:00.000 98 % Respirations 2025-03-21 16:30:00.000 16 /min Respirations 2025-03-14 17:28:00.000 16 /min Respirations 2025-03-09 15:51:00.000 16 /min Systolic Blood Pressure 2025-03-21 16:30:00.000 132 mm [Hg] Systolic Blood Pressure 2025-03-14 17:28:00.000 98 mm[ Hg] Systolic Blood Pressure 2025-03-09 15:51:00.000 114 mm [Hg] Diastolic Blood Pressure 2025-03-21 16:30:00.000 [...] AWARENESS FOR SAFETY AND WILL NOTIFY CLINICAL SOLDER DEPOSIT OPERATOR AND PHYSICIAN/PROVIDER WITH ANY CHANGE IN CONDITION. [code = SKILLED NURSE WILL MAINTAIN SITUATIONAL AWARENESS FOR SAFETY AND WILL NOTIFY CLINICAL SOLDER DEPOSIT OPERATOR AND PHYSICIAN/PROVIDER WITH ANY CHANGE IN CONDITION.] Goal 2024-12-31 Patient Goal - TO SLEEP BETT ER Goal 2024-10-29 Patient Goal - TO SLEEP BETT ER Goal 2025-02-28 Patient Goal - TO SLEEP BETT ER Goal Patient Goal - TO SLEEP BETT ER Goal Provider Goal - A PLAN OF CARE WILL BE ESTABLISHED THAT MEETS PATIENT'S RESIDENTIAL NEEDS AND INCLUDES PATIENT GOAL FOR HOME [...] End Date/Time Encounter Type Admission Type Attending [facility] Care Department Encounter ID Discharge Date Discharge Status Discharge Condition Discharge Reason Percent Goals Met 2025-03-03 00:00:00 2025-05-01 00:00:00 Outpatient RECERTIFIC ATION ALBERTA DUFFY [facility] [id number] 0.00
== END 2025-04-01 15:19 | disposition home or self-care (01) | DRG 754 ==
PROVIDERS: Admitting Provider Psychiatry & Neurology Psychiatry; PCP Student in an Organized Health Care Education/Training Program; Visit Provider Psychiatry & Neurology Psychiatry
DX: F32.A Depression, unspecified (principal); C64.1 Malignant neoplasm of right kidney, except renal pelvis; E11.9 Type 2 diabetes mellitus without complications; E03.9 Hypothyroidism, unspecified; Z79.01 Long term (current) use of anticoagulants; Z91.51 Personal history of suicidal behavior; Z90.5 Acquired absence of kidney; Z79.899 Other long term (current) drug therapy; Z79.84 Long term (current) use of oral hypoglycemic drugs; Z79.890 Hormone replacement therapy
CPT/HCPCS: 36415; 80061; 83036

== ENCOUNTER → 2025-03-30 13:59 | Outpatient (BNV) | payer MEDICAID, SELFPAY | PROVIDERS: Admitting Provider Psychiatry & Neurology Psychiatry; PCP Student in an Organized Health Care Education/Training Program; Visit Provider Internal Medicine Medical Oncology | DX: C64.1 Malignant neoplasm of right kidney, except renal pelvis (principal); R91.8 Other nonspecific abnormal finding of lung field; Z90.5 Acquired absence of kidney | CPT/HCPCS: 99222 ==

== ENCOUNTER → 2025-03-30 13:59 | Outpatient (BNV) | payer MEDICAID, SELFPAY | PROVIDERS: Admitting Provider Psychiatry & Neurology Psychiatry; PCP Student in an Organized Health Care Education/Training Program; Visit Provider Nurse Practitioner Family | DX: E03.9 Hypothyroidism, unspecified (principal) | CPT/HCPCS: 99221 ==

== ENCOUNTER → 2025-03-30 13:59 | Outpatient (BNV) | payer OTHER, SELFPAY | PROVIDERS: Admitting Provider Psychiatry & Neurology Psychiatry; PCP Student in an Organized Health Care Education/Training Program; Visit Provider Psychiatry & Neurology Psychiatry | DX: F33.2 Major depressive disorder, recurrent severe without psychotic features (principal); E03.9 Hypothyroidism, unspecified | CPT/HCPCS: 99232; 99233 ==

== ENCOUNTER 2025-04-04 09:40 | Outpatient (REF) | payer MEDICAID, SELFPAY ==
--- OUTSIDE RECORDS SUMMARY | 2025-03-25 18:43 | XMS_ITS | Encounter Summary ---
Author Organization [facility] Address [address] [place] [address] Care Team Providers Care Record Tabulating Clerk Name Role Phone Physician, No Pcp Primary Care Provider Unavaila ble Reason for Visit * Reason Comments Suicide Attempt Overdosed unknown am ount of oxycodone & Zolpidem Encounter Details Date Type Department Care Team (Late st Contact Info) Description 2025 6:43 PM EDT - 03/30/2025 1:41 PM EDT Emergency [facility] Emergency [address] [place] [phone] Zoie Florentino MD [address] [place] [id number] Benny Ball MD [address] [place] [phone] Ayden Vera MD [address] [place] [phone] Sonia Evangelista MD [address] [place] [phone] Bryson Sinha MD [address] [address] Everardo Gray MD [address] [place] [address] Alpesh Arias MD [address] [place] [address] Ken Almaraz MD [address] [place] [address] Medication overdose, intentional self-harm, initial encounter ([facility] V24, [facility] V28) (Primary Dx) Discharge Disposition: Psychiatric Hospital Social History Tobacco Use Types Packs/Day Years Used Date Smoking Tobacco: Never Smokeless Tobacco: Never Tobacco Cessation:Counseling Given: Not Answered Comments Unknown Sex and Gender Information Value Date Recorded Sex Assigned at Not on file Legal Sex Female 6:15 PM EST Gender Identity Not on file Sexual Orientation Not on file documented as of this encounter Last Filed Vital Signs Vital Sign Reading Time Taken Comments Blood Pressure 107/76 03/30/2025 12:47 PM EDT Pulse 62 03/30/2025 12:47 PM EDT Temperature 36.6 C (97.9 F) 03/30/2025 12:47 PM EDT Respiratory Rate 18 03/30/2025 12:47 PM EDT Oxygen Saturation 97% 03/30/2025 12:47 PM EDT Inhaled Oxygen Concentration - - Weight 84.4 kg (186 lb) 03/26/2025 7:56 AM EDT Height 167.6 cm (5' 6 ) 03/26/2025 7:56 AM EDT Body Mass Index 30.02 03/26/2025 7:56 AM EDT documented in this encounter Functional Status * Are you deaf or do you have serious difficulty hearing? Answer Date of Assessment Author No 2025 8:01 PM EDT Diego Caballero RN * Are you blind or do you have serious difficulty seeing, even when wearing glasses? Answer Date of Assessment Author No 2025 8:01 PM EDT Diego Caballero RN * Do you have serious difficulty walking or climbing stairs? Answer Date of Assessment Author No 2025 8:01 PM EDT Diego Caballero RN * Do you have serious difficulty dressing or bathing? Answer Date of Assessment Author No 2025 8:01 PM EDT Diego Caballero RN * Because of a physical, mental, or emotional condition, do you have serious difficulty doing errandsalone such as visiting the doctor? Answer Date of Assessment Author No 2025 8:01 PM EDT Dieog Caballero RN * Calculated C-SSRS Risk Score (Lifetime/Recent) Answer Date of Assessment Author High Risk 03/30/2025 10:00 AM Cris Collins RN * [place] Suicide Severity Rating Scale (Screener/Recent Self-Report) Question Answer Date of Assessment Author 1. Wish to be (Past 1 Month) Yes 03/30/2025 10:00 AM Jimmy Giles RN 2. Non-Specific Active Suici alexia Thoughts (Past 1 Month) Yes 03/30/2025 10:00 AM Cris Giles RN 3. Active Suicidal Ideation with any Methods (Not Plan) Without Intent to Act (Past 1 Month) Yes 03/30/2025 10:00 AM Jimmy Giles RN 4. Active Suicidal Ideation with Some Intent to Act, Without Specific Plan (Past 1 Month) Yes 03/30/2025 10:00 AM Jimmy Giles RN 5. Active Suicidal Ideation with Specific Plan and Intent (Past 1 Month) Yes 03/30/2025 10:00 AM Jimmy Giles RN 6. Suicidal Behavior (Lifetime) Yes 5 10:00 AM Cris Giles RN 6. Suicidal Behavior (3 Months) Yes 5 10:00 AM Cris Giles RN documented as of this encounter Mental Status * Because of a physical, mental, or emotional condition, do you have serious difficulty concentrating, remembering, or making decisions? (5 years old or older) Answer Entry Date Author No 2025 8:01 PM Diego Jones RN documented in this encounter Medications at Time of Discharge levothyroxine (SYNTHROID, LEVOTHROID) 75 mcg tablet Take 1 tablet (75 mcg total) by mouth 1 (one) time each day before breakfast. 03/23/2025 propranoloL (INDERAL) 10 mg tablet Take 1 tablet (10 mg total) by mouth 2 times daily. 07/13/2024 zolpidem (AMBIEN) 10 mg tablet Take 1 tablet (10 mg total) by mouth at bedtime as needed for sleep. 10/01/2018 Eliquis 5 mg tablet Take 1 tablet (5 mg total) by mouth 2 (two) times a day. triamcinolone (KENALOG) 0.1 % cream Apply thin film to affected areas(s) four times daily. 15 g 10/08/2024 10/08/2025 documented as of this encounter Discharge Disposition Disposition Code Departure Means Destination Comment s [facility] documented in this encounter Progress Notes * Aisha Lyons LCSW - 03/30/2025 11:29 AM EDT BED FOUND- Patient accepted to [facility], by Dr. Garcia, they are requesting and ETAof 2:00pm. * Ken Almaraz MD - 03/30/2025 2:45 AM EDT ED Course as of 03/30/25 0245 Fri 2025 2331 Poison control - obs until back to baseline mental status. Until O2 sat normal? [EK] Sat Mar 26, 2025 0005 Patient chemically restrained d/t agitation, trying to leave the department, refused oral meds[EK] 0727 Medically cleared for crisis evaluation. [EK] Sun Mar 27, 2025 0930 No acute needs during my shift. Patient's care was handed over to the oncoming provider. [EK] Mon Mar 28, 2025 0219 Continues to await involuntary psych bed search [EK] 0614 No acute needs during my shift. Patient's care was handed over to the oncoming provider. [EK] Tue Mar 29, 2025 0232 I, Dr. Sinha ,took over the case from the outgoing physician. Rounded on patient, Reviewed labs history and made medication adjustments as needed. Pending placement s/p intentional OD on opiates, cleard by poison control [JL] Wed Mar 30, 2025 0243 I, Dr. Rigoberto Almaraz, have received signout for this patient. The patient is currently pending inpatient psychiatric bed search. No issues during my shift. Anticipate sign out to Dr. Sinha at 0700hrs. [MG] ED Course User Index [EK] Zoie Florentino MD [JL] Bryson Sinha MD [MG] Ken Almaraz MD Clinical Impressions as of 03/30/25 0245 Medication overdose, intentional self-harm, initial encounter ([facility] V24, [facility] V28) Send to Specialty Department 1. Medication overdose, intentional self-harm, initial encounter ([facility] V24, [facility] V28) Procedures Krys Travis * Bryson Sinha MD - 03/29/2025 2:32 AM EDT ED Course as of 03/29/25 0729 Fri 2025 2331 Poison control - obs until back to baseline mental status. Until O2 sat normal? [EK] Sat Mar 26, 2025 0005 Patient chemically restrained d/t agitation, trying to leave the department, refused oral meds[EK] 0727 Medically cleared for crisis evaluation. [EK] Sun Mar 27, 2025 0930 No acute needs during my shift. Patient's care was handed over to the oncoming provider. [EK] Mon Mar 28, 2025 0219 Continues to await involuntary psych bed search [EK] 0614 No acute needs during my shift. Patient's care was handed over to the oncoming provider. [EK] Tue Mar 29, 2025 0232 I, Dr. Sinha ,took over the case from the outgoing physician. Rounded on patient, Reviewed labs history and made medication adjustments as needed. Pending placement s/p intentional OD on opiates, cleard by poison control [JL] ED Course User Index [EK] Zoie Florentino MD [JL] Bryson Sinha MD Clinical Impressions as of 03/29/25 0729 Medication overdose, intentional self-harm, initial encounter ([facility] V24, [facility] V28) Send to Specialty Department 1. Medication overdose, intentional self-harm, initial encounter ([facility] V24, [facility] V28) Procedures * Sonia Evangelista MD - 03/28/2025 7:47 PM EDT Krys Travis This patient was signed out to me by ED provider, Dr Ball. Briefly, the patient presented to the ED with suicide attempt. Signed out to me pending placement. No acute events, signed out to Dr Sinha * Zoie Florentino MD - 03/28/2025 2:20 AM EDT Krys Travis This patient's care was signed out to me by the offgoing provider. Please see her/his note for further details regarding initial presentation, history of present illness, physical exam, and medical decision making. At time of signout, the following was pending: ED Course as of 03/28/25 0803 Fri 2025 2331 Poison control - obs until back to baseline mental status. Until O2 sat normal? [EK] Sat Mar 26, 2025 0005 Patient chemically restrained d/t agitation, trying to leave the department, refused oral meds[EK] 0727 Medically cleared for crisis evaluation. [EK] Sun Mar 27, 2025 0930 No acute needs during my shift. Patient's care was handed over to the oncoming provider. [EK] Mon Mar 28, 2025 0219 Continues to await involuntary psych bed search [EK] 0614 No acute needs during my shift. Patient's care was handed over to the oncoming provider. [EK] ED Course User Index [EK] Zoie Florentino MD Clinical Impressions as of 03/28/25 0803 Medication overdose, intentional self-harm, initial encounter ([facility] V24, [facility] V28) No orders to display Labs Reviewed COMPREHENSIVE METABOLIC PANEL - Abnormal Result Value Sodium 145 Potassium 3.6 Chloride 113 (*) CO2 27 Anion Gap 5 Glucose 91 BUN 9 Creatinine 0.70 eGFR 100 BUN/Creatinine Ratio 12.9 Calcium 7.9 (*) AST (SGOT) 22 ALT (SGPT) 24 Alkaline Phosphatase 56 Total Protein 5.2 (*) Albumin 3.0 (*) Total Bilirubin 0.4 ACETAMINOPHEN LEVEL - Abnormal Acetaminophen Level 3.8 (*) SALICYLATE LEVEL - Abnormal Salicylate Level <1.7 (*) DRUG ABUSE SCREEN 8A PANEL, URINE - Abnormal Amphetamine Screen, Ur Negative Barbiturate Screen, Ur Negative Benzodiazepine Screen, Ur Positive (*) Cocaine Screen, Ur Negative Opiate Screen, Ur Negative Cannabinoid (THC) Screen, Ur Negative Oxycodone Screen, Ur Negative Fentanyl, Ur Negative Narrative: Assay cutoffs: Amphetamines 1000 ng/mL Barbiturates 200 ng/mL Benzodiazepines 200 ng/mL Cocaine 300 ng/mL Fentanyl 1 ng/mL Opiates 300 ng/mL Oxycodone 100 ng/mL THC 50 ng/mL Semi-quantitative assay for screening purposes only. Unconfirmed screening result should not be used for non-medical purposes. *ALTERNATE METHOD CONFIRMATION DONE UPON REQUEST ONLY* CBC WITH AUTO DIFFERENTIAL - Abnormal WBC 3.9 (*) RBC 3.20 (*) Hemoglobin 10.9 (*) Hematocrit 32.6 (*) MCV 101.9 (*) MCH 34.1 (*) MCHC 33.4 RDW 13.0 Platelets 147 MPV 10.0 NRBC 0.0 NRBC Absolute 0.00 Neutrophils Relative 72.5 Lymphocytes Relative 16.8 Monocytes Relative 8.8 Eosinophils Relative 1.3 Basophils Relative 0.3 Immature Granulocytes Relative 0.3 Neutrophils Absolute 2.80 Lymphocytes Absolute 0.65 (*) Monocytes Absolute 0.34 Eosinophils Absolute 0.05 Basophils Absolute 0.01 Immature Granulocytes Absolute 0.01 ACETAMINOPHEN LEVEL - Abnormal Acetaminophen Level <2.0 (*) MAGNESIUM - Abnormal Magnesium 1.8 (*) THYROID STIMULATING HORMONE WITH REFLEX TO FREE T4 AND FREE T3 - Normal TSH 2.35 ETHANOL - Normal Ethanol Level <3 BUPRENORPHINE SCREEN, URINE - Normal Buprenorphine Screen Urine Negative Narrative: Assay cutoff 5 ng/mL Semi-quantitative assay for screening purposes only. Unconfirmed screening result should not be used for non-medical purposes. *ALTERNATE METHOD CONFIRMATION DONE UPON REQUEST ONLY* PHENCYCLIDINE, URINE - Normal PCP Scrn, Ur Negative METHADONE SCREEN, URINE - Normal Methadone Screen, Urine Negative PROTHROMBIN TIME WITH INR - Normal Protime 12.3 INR 1.0 ACTIVATED PARTIAL THROMBOPLASTIN TIME - Normal aPTT 32.6 CBC AND DIFFERENTIAL Narrative: The following orders were created for panel order CBC and differential. Procedure Abnormality Status --------- ------ CBC auto differential[[id number]] Abnormal Final result Please view results for these tests on the individual orders. Clinical Impression(s): Final diagnoses: [T50.902A] Medication overdose, intentional self-harm, initial encounter ([facility] V24, [facility] V28) Send to Specialty Department Previous Medications ELIQUIS 5 MG TABLET Take 1 tablet (5 mg total) by mouth 2 (two) times a day. LEVOTHYROXINE (SYNTHROID, LEVOTHROID) 75 MCG TABLET Take 1 tablet (75 mcg total) by mouth 1 (one) time each day before breakfast. PROPRANOLOL (INDERAL) 10 MG TABLET Take 1 tablet (10 mg total) by mouth 2 times daily. TRIAMCINOLONE (KENALOG) 0.1 % CREAM Apply thin film to affected areas(s) four times daily. ZOLPIDEM (AMBIEN) 10 MG TABLET Take 1 tablet (10 mg total) by mouth at bedtime as needed for sleep. ED Medication Administration from 03/25/20251829 to 03/28/2025 08 Date/Time Order Dose Route Action Action by 03/26/2025 0007 EDT LORazepam (ATIVAN) injection 2 mg 2 mg intramuscular Given Alexey Travis 03/26/2025 000 EDT midazolam (VERSED) injection 5 mg 5 mg intramuscular Given Alexey Travis 03/26/2025 1343 EDT acetaminophen (TYLENOL) tablet 650 mg 650 mg oral Not Given Maryjane Coe 03/26/20251833 EDT acetaminophen (TYLENOL) tablet 650 mg 650 mg oral Given Michele S 03/26/2025 1729 EDT LORazepam (ATIVAN) tablet 1 mg 1 mg oral Given Michele, S 03/26/2025 183 EDT apixaban (ELIQUIS) tablet 5 mg 5 mg oral Given Michele S 03/27/2025 0812 EDT apixaban (ELIQUIS) tablet 5 mg 5 mg oral Given Alexey Leslie 03/27/20252021 EDT apixaban (ELIQUIS) tablet 5 mg 5 mg oral Given Elmo Thorpe 03/26/2025 183 EDT propranoloL (INDERAL) tablet 10 mg 10 mg oral Given Michele S 03/27/2025 0812 EDT propranoloL (INDERAL) tablet 10 mg 10 mg oral Given Alexey Leslie 03/27/20252021 EDT propranoloL (INDERAL) tablet 10 mg 10 mg oral Given Elmo Thorpe 03/26/2025 1838 EDT levothyroxine (SYNTHROID, LEVOTHROID) tablet 75 mcg 75 mcg oral Given Diego Bautista 03/27/2025 0625 EDT levothyroxine (SYNTHROID, LEVOTHROID) tablet 75 mcg 75 mcg oral Given Mony Amaral 03/28/2025 0757 EDT levothyroxine (SYNTHROID, LEVOTHROID) tablet 75 mcg 75 mcg oral Given Titi R 03/27/2025 1509 EDT acetaminophen (TYLENOL) tablet 1,000 mg 1,000 mg oral Given Alexey Leslie 03/27/20252021 EDT oxyCODONE (ROXICODONE) immediate release tablet 5 mg 5 mg oral Given Elmo Thorpe 03/27/20252021 EDT mirtazapine (REMERON) tablet 30 mg 30 mg oral Given Elmo Thorpe 03/27/20252021 EDT LORazepam (ATIVAN) tablet 1 mg 1 mg oral Given Elmo Thorpe * Cony Vega RN - 03/27/2025 5:58 PM EDT Pt refusing to eat anything at this time. Pt reports would like to take a shower when staff is available to do so * Rolf Leslie RN - 03/27/2025 11:33 AM EDT PT UPSET AND STATING THAT SHE WANTS TO GO HOME. SAT IN ROOM WITH PATIENT AND HAD A CONVERSATION WITH SCREEN SLAGGER. PT UPSET ABOUT THE FOOD AND THAT SHE CANNOT HAVE A SHOWER. A SHOWER WAS OFFERED TO HER BUT SHE REFUSED STATING WHY WOULD I SHOWER HERE WHEN I COULD GO HOME ANY ENJOY MY OWN SHOWER . ATTEMPTED TO TALK WITH PATIENT ABOUT WHAT FOOD OPTIONS OR OTHER COMFORTS WE COULD OFFER IN ORDER TO HELP HER DISCOMFORT AND ANXIETY BUT SHE STATED SHE NO LONGER WANTED TO SPEAK UNLESS I COULD SEND HER HOME. * Zoie Florentino MD - 03/27/2025 12:42 AM EDT Krys Travis This patient's care was signed out to me by the offgoing provider. Please see her/his note for further details regarding initial presentation, history of present illness, physical exam, and medical decision making. At time of signout, the following was pending: involuntary inpatient psychiatric placement ED Course as of 03/28/25 0615 Fri 2025 2331 Poison control - obs until back to baseline mental status. Until O2 sat normal? [EK] Sat Mar 26, 2025 0005 Patient chemically restrained d/t agitation, trying to leave the department, refused oral meds[EK] 0727 Medically cleared for crisis evaluation. [EK] Sun Mar 27, 2025 0930 No acute needs during my shift. Patient's care was handed over to the oncoming provider. [EK] Mon Mar 28, 2025 0219 Continues to await involuntary psych bed search [EK] 0614 No acute needs during my shift. Patient's care was handed over to the oncoming provider. [EK] ED Course User Index [EK] Zoie Florentino MD Clinical Impressions as of 03/28/25 0615 Medication overdose, intentional self-harm, initial encounter ([facility] V24, [facility] V28) No orders to display Labs Reviewed COMPREHENSIVE METABOLIC PANEL - Abnormal Result Value Sodium 145 Potassium 3.6 Chloride 113 (*) CO2 27 Anion Gap 5 Glucose 91 BUN 9 Creatinine 0.70 eGFR 100 BUN/Creatinine Ratio 12.9 Calcium 7.9 (*) AST (SGOT) 22 ALT (SGPT) 24 Alkaline Phosphatase 56 Total Protein 5.2 (*) Albumin 3.0 (*) Total Bilirubin 0.4 ACETAMINOPHEN LEVEL - Abnormal Acetaminophen Level 3.8 (*) SALICYLATE LEVEL - Abnormal Salicylate Level <1.7 (*) DRUG ABUSE SCREEN 8A PANEL, URINE - Abnormal Amphetamine Screen, Ur Negative Barbiturate Screen, Ur Negative Benzodiazepine Screen, Ur Positive (*) Cocaine Screen, Ur Negative Opiate Screen, Ur Negative Cannabinoid (THC) Screen, Ur Negative Oxycodone Screen, Ur Negative Fentanyl, Ur Negative Narrative: Assay cutoffs: Amphetamines 1000 ng/mL Barbiturates 200 ng/mL Benzodiazepines 200 ng/mL Cocaine 300 ng/mL Fentanyl 1 ng/mL Opiates 300 ng/mL Oxycodone 100 ng/mL THC 50 ng/mL Semi-quantitative assay for screening purposes only. Unconfirmed screening result should not be used for non-medical purposes. *ALTERNATE METHOD CONFIRMATION DONE UPON REQUEST ONLY* CBC WITH AUTO DIFFERENTIAL - Abnormal WBC 3.9 (*) RBC 3.20 (*) Hemoglobin 10.9 (*) Hematocrit 32.6 (*) MCV 101.9 (*) MCH 34.1 (*) MCHC 33.4 RDW 13.0 Platelets 147 MPV 10.0 NRBC 0.0 NRBC Absolute 0.00 Neutrophils Relative 72.5 Lymphocytes Relative 16.8 Monocytes Relative 8.8 Eosinophils Relative 1.3 Basophils Relative 0.3 Immature Granulocytes Relative 0.3 Neutrophils Absolute 2.80 Lymphocytes Absolute 0.65 (*) Monocytes Absolute 0.34 Eosinophils Absolute 0.05 Basophils Absolute 0.01 Immature Granulocytes Absolute 0.01 ACETAMINOPHEN LEVEL - Abnormal Acetaminophen Level <2.0 (*) MAGNESIUM - Abnormal Magnesium 1.8 (*) THYROID STIMULATING HORMONE WITH REFLEX TO FREE T4 AND FREE T3 - Normal TSH 2.35 ETHANOL - Normal Ethanol Level <3 BUPRENORPHINE SCREEN, URINE - Normal Buprenorphine Screen Urine Negative Narrative: Assay cutoff 5 ng/mL Semi-quantitative assay for screening purposes only. Unconfirmed screening result should not be used for non-medical purposes. *ALTERNATE METHOD CONFIRMATION DONE UPON REQUEST ONLY* PHENCYCLIDINE, URINE - Normal PCP Scrn, Ur Negative METHADONE SCREEN, URINE - Normal Methadone Screen, Urine Negative PROTHROMBIN TIME WITH INR - Normal Protime 12.3 INR 1.0 ACTIVATED PARTIAL THROMBOPLASTIN TIME - Normal aPTT 32.6 CBC AND DIFFERENTIAL Narrative: The following orders were created for panel order CBC and differential. Procedure Abnormality Status --------- ------ CBC auto differential[[id number]] Abnormal Final result Please view results for these tests on the individual orders. Clinical Impression(s): Final diagnoses: [T50.372A] Medication overdose, intentional self-harm, initial encounter ([facility] V24, [facility] V28) Send to Specialty Department Previous Medications ELIQUIS 5 MG TABLET Take 1 tablet (5 mg total) by mouth 2 (two) times a day. LEVOTHYROXINE (SYNTHROID, LEVOTHROID) 75 MCG TABLET Take 1 tablet (75 mcg total) by mouth 1 (one) time each day before breakfast. PROPRANOLOL (INDERAL) 10 MG TABLET Take 1 tablet (10 mg total) by mouth 2 times daily. TRIAMCINOLONE (KENALOG) 0.1 % CREAM Apply thin film to affected areas(s) four times daily. ZOLPIDEM (AMBIEN) 10 MG TABLET Take 1 tablet (10 mg total) by mouth at bedtime as needed for sleep. ED Medication Administration from 2025 1830 to 03/27/2025 0930 Date/Time Order Dose Route Action Action by 03/26/2025 000 EDT LORazepam (ATIVAN) injection 2 mg 2 mg intramuscular Given Alexey Travis 03/26/2025 0007 EDT midazolam (VERSED) injection 5 mg 5 mg intramuscular Given Alexey Travis 03/26/2025 1343 EDT acetaminophen (TYLENOL) tablet 650 mg 650 mg oral Not Given Maryjane Coe 03/26/2025 183 EDT acetaminophen (TYLENOL) tablet 650 mg 650 mg oral Given Diego Bautista 03/26/2025 1729 EDT LORazepam (ATIVAN) tablet 1 mg 1 mg oral Given Diego Bautista 03/26/2025 1834 EDT apixaban (ELIQUIS) tablet 5 mg 5 mg oral Given Diego Bautista 03/27/2025 0812 EDT apixaban (ELIQUIS) tablet 5 mg 5 mg oral Given Alexey Leslie 03/26/2025 1834 EDT propranoloL (INDERAL) tablet 10 mg 10 mg oral Given Diego Bautista 03/27/2025 0812 EDT propranoloL (INDERAL) tablet 10 mg 10 mg oral Given Alexey Leslie 03/26/2025 1838 EDT levothyroxine (SYNTHROID, LEVOTHROID) tablet 75 mcg 75 mcg oral Given Diego Bautista 03/27/2025 0625 EDT levothyroxine (SYNTHROID, LEVOTHROID) tablet 75 mcg 75 mcg oral Given Cristin T * Sherri Bautista RN - 03/26/2025 5:51 PM EDT This rn attempted to do med rec on patient, pharmacy at [facility] is not open at this time. Patient stated she is on levothyroxine as well as eliquis and verified doses this was entered into the medication area in triage. Patient states she is on other medication however was unable to verify doses and administration instruction.. Provider Ayden Cordoba made aware. * Rebekah Coe RN - 03/26/2025 12:02 PM EDT Patient sister requesting to speak with all source collection manager at this time about patient not having opportunity to use healthcare interpreter last night when patient was given injection. Chapis Barrios notified at this time. * Grace Godinez - 03/26/2025 12:01 PM EDT Pt sister Brit at bedside at this time. Pt sister requesting to speak to nurse all source collection manager due to concerns of her sister's care upon arrival. Pt states in swedish my hip hurts where they gave me an injection, I would never be aggressive towards anyone . BRICE [place] Notified. Grace Godinez 03/26/25 1206 * Rebekah Coe RN - 03/26/2025 10:30 AM EDT Patient states she uses [facility]. Pharmacy is closed until Friday morning, sounable to do med rec at this time. * Rebekah Coe RN - 03/26/2025 8:16 AM EDT Patients sister Brit called at this time asking for an update at this time. * Jo Ann Bell RN - 03/26/2025 3:37 AM EDT RN attempted to call pharmacy to do medication reconciliation, but pharmacy's system is currently down. Will try again in morning. * Jo Ann Bell RN - 03/26/2025 3:21 AM EDT Per MD Zoie Perez, OK to let patient rest and skip vital signs to avoid agitating patient. Breathing unlabored, does not appear to be in acute distress. Pt calm, sleeping. * Sarah Travis RN - 03/26/2025 12:00 AM EDT PT attempting to remove IV. PT non redirectable. PT unable to accept education d/t increased agitation at this time. Provider called to bedside. IM restraints ordered. Security to help. * Bhargavi Caballero RN - 2025 11:20 PM EDT Patient is refusing tele monitor, vitals, EKG and is trying to pull her IV out. MD to patients bedside and informed. * Regina Diaz RN - 2025 6:44 PM EDT Pt to ED via EMS from home after suicidal attemp. Pt overdosed on unknown amount of oxycodone &Zolpidem. 0.4mg IV narcan given via EMS. 2l NC applied, rr 12, O2 dropped to 91% RA. * Zoie Florentino MD - 2025 6:30 PM EDT EMERGENCY DEPARTMENT Provider Note Room: / Patient: Krys Travis PCP: No Pcp Physician Patient : 1965 Patient Department: [facility] EMERGENCY [address] [facility] [address] Dept: [phone] Triage Chief Complaint: Suicide Attempt (Overdosed unknown amount of oxycodone & Zolpidem ) History of Present Illness: History obtained with help of [employer] healthcare interpreter as patient is [place]-speaking. 60-year-old female with history of metastatic cancer on chemotherapy, history of prior suicide attempt presenting to the emergency department via EMS. Per EMS, patient was found unresponsive in her bed, received Narcan and responded well, was hypoxic and put on 2L of O2 via NC. EMS reports she tookan unknown amount of oxycodone and zolpidem. Per patient, that she does endorse taking multiple medications but is unsure which ones and how much. Did so with the intention of killing herself. Tells me she is very tired, sick of being sick and sick of chemotherapy. Becomes quickly frustrated with my questions, demands to be discharged and to have her IV taken out. Denies HI, A/V hallucinations. Wants to know who brought her to the ER and wants to ensure that her home is safe as EMS clearly had to break and to find her. ED Course / Medications given / MDM: 60-year-old female presenting via EMS following intentional overdose. She is well-appearing, alertand responsive, pupils equal and reactive. Was noted to be satting at 90% on room air but refuses to wear her nasal cannula. Demands we take her IV out as well. Initially I was able to verbally de-escalate the patient but ultimately she kept trying to get out of the stretcher, stating it is not herright to take care of her if that is not what she wants, would like to be discharged to her home. Spoke with poison control, given we do not know what or how much of what the patient took, it was recommended that we observe her until she is back to baseline mental status. I do believe she is ather mental baseline status, only clinical concern was that she was hypoxic on room air but refusingto wear oxygen. We will monitor in our department for 12 hours following her arrival to ensure no change in her clinical course. After that time, I will deem her medically clear for crisis consultation. If she declines at any point during the stay, I will admit for further medical evaluation and management as appropriate. ED Course as of 03/28/25614 Fri 2025 2331 Poison control - obs until back to baseline mental status. Until O2 sat normal? [EK] Sat Mar 26, 2025 0005 Patient chemically restrained d/t agitation, trying to leave the department, refused oral meds[EK] 0727 Medically cleared for crisis evaluation. [EK] Sun Mar 27, 2025 0930 No acute needs during my shift. Patient's care was handed over to the oncoming provider. [EK] Mon Mar 28, 2025 0219 Continues to await involuntary psych bed search [EK] 0614 No acute needs during my shift. Patient's care was handed over to the oncoming provider. [EK] ED Course User Index [EK] Zoie Florentino MD Clinical Impressions as of 03/28/25614 Medication overdose, intentional self-harm, initial encounter ([facility] V24, [facility] V28) Medications LORazepam (ATIVAN) injection 2 mg (2 mg intramuscular Given 03/26/256) midazolam (VERSED) injection 5 mg (5 mg intramuscular Given 03/26/256) Clinical Impression(s): Final diagnoses: [T50.902A] Medication overdose, intentional self-harm, initial encounter ([facility] V24, [facility] V28) Disposition: Send to Specialty Department Physical Examination: Temp: 36.5 ??C (97.7 ??F) BP: 137/76 Heart Rate: 56 Resp: 12 SpO2: 100 % Nursing notes and vitals reviewed. Constitutional: Well-developed, well-nourished, and in no distress. Head: Normocephalic and atraumatic. Eyes: Conjunctivae and EOM are normal. Pupils equal and reactive. Neck: Normal range of motion. No tracheal deviation present. Cardiovascular: Normal rate, extremities warm and well-perfused. Pulmonary/Chest: Effort normal. No respiratory distress. Left upper chest wall port in place. Abdominal: Soft. No distension. No abdominal tenderness to palpation. No rebound or guarding. Musculoskeletal: Normal range of motion. No deformity. Neurological: Alert. GCS 15. Skin: Warm and dry. Psych: Endorses SI. Denies HI or auditory or visual hallucinations. Lab & Imaging Results: No results found for this or any previous visit (from the past 4464 hours). If an EKG was performed on today's visit and is documented above I independently interpreted/read the EKG as noted above at the time of service as above. Labs Reviewed COMPREHENSIVE METABOLIC PANEL - Abnormal Result Value Sodium 145 Potassium 3.6 Chloride 113 (*) CO2 27 Anion Gap 5 Glucose 91 BUN 9 Creatinine 0.70 eGFR 100 BUN/Creatinine Ratio 12.9 Calcium 7.9 (*) AST (SGOT) 22 ALT (SGPT) 24 Alkaline Phosphatase 56 Total Protein 5.2 (*) Albumin 3.0 (*) Total Bilirubin 0.4 ACETAMINOPHEN LEVEL - Abnormal Acetaminophen Level 3.8 (*) SALICYLATE LEVEL - Abnormal Salicylate Level <1.7 (*) CBC WITH AUTO DIFFERENTIAL - Abnormal WBC 3.9 (*) RBC 3.20 (*) Hemoglobin 10.9 (*) Hematocrit 32.6 (*) MCV 101.9 (*) MCH 34.1 (*) MCHC 33.4 RDW 13.0 Platelets 147 MPV 10.0 NRBC 0.0 NRBC Absolute 0.00 Neutrophils Relative 72.5 Lymphocytes Relative 16.8 Monocytes Relative 8.8 Eosinophils Relative 1.3 Basophils Relative 0.3 Immature Granulocytes Relative 0.3 Neutrophils Absolute 2.80 Lymphocytes Absolute 0.65 (*) Monocytes Absolute 0.34 Eosinophils Absolute 0.05 Basophils Absolute 0.01 Immature Granulocytes Absolute 0.01 ACETAMINOPHEN LEVEL - Abnormal Acetaminophen Level <2.0 (*) MAGNESIUM - Abnormal Magnesium 1.8 (*) THYROID STIMULATING HORMONE WITH REFLEX TO FREE T4 AND FREE T3 - Normal TSH 2.35 ETHANOL - Normal Ethanol Level <3 CBC AND DIFFERENTIAL Narrative: The following orders were created for panel order CBC and differential. Procedure Abnormality Status --------- ------ CBC auto differential[[id number]] Abnormal Final result Please view results for these tests on the individual orders. BUPRENORPHINE SCREEN, URINE PHENCYCLIDINE, URINE METHADONE SCREEN, URINE DRUG ABUSE SCREEN 8A PANEL, URINE No orders to display I personally reviewed the patient's images and agree with radiologist interpretation unless otherwise noted here or in ED course or MDM section Procedures: Procedures Previous Medications TRIAMCINOLONE (KENALOG) 0.1 % CREAM Apply thin film to affected areas(s) four times daily. Allergies: Morphine Medical History[1] Surgical History[2] Social History[3] Zoie Florentino MD 03/25/25 2226 Zoie Florentino MD 03/26/25 1015 [1] Past Medical History: Diagnosis Date ??? Diabetes mellitus (CMS/HCC V24, CMS/HCC V28) ??? Hypertension [2] History reviewed. No pertinent surgical history. [3] Social History Tobacco Use ??? Smoking status: Never ??? Smokeless tobacco: Never * Alpesh Arias MD - 2025 6:30 PM EDT Patient was signed out to me by Dr. Gray See initial HPI for additional information. Patient presented after intentional overdose. Patient has been medically cleared now pending placement. No changes to patient's clinical status occurred under my care. Patient signed out to Dr. Vera pending placement. Alpesh Arias MD 03/29/25 1739 Alpesh Arias MD 03/29/251951 documented in this encounter Consult Notes * Kenn Servin - 03/29/2025 1:50 PM EDT Images from the original note were not included. Behavioral Health Services - Mental Status Update Important times Time assessment started: 13:00 Time of disposition: 13:30 Location: Emergency Room (ER) Consulted case with: Aisha Lyons LCSW Insurance information: Insurance: Be Healthy Verified by: [employer] - Aisha Lyons Reason for Consultation / Presenting Problem: Krys Travis is being seen today for a 24hour re-evaluation due to their state wide bed search being exhausted. S utilized hospital healthcare interpreter, Manuel, in order to complete assessment. Patient reported that she is feeling well and wouldlike to go home. [facility] informed patient that she is unable to return home before receiving psychiatric inpatient treatment first due to why she came to the ED. She struggled with this and expressed that she has learned my lesson regarding her suicide attempt. Patient denied HI/AH/VH. She stated that she is taking her medications as prescribed. Patient also discussed struggles with food in the hospital, stating that she is not eating anything besides cristiana crackers and ice cream. Collaterals, contact information, and engagement level: Therapist: MIRNA, waiting for a new therapist: Psychiatrist: Katie BRADLEY: PCP: Unknown Family: Sister, Brit Travis: Other: None reported Mental Status Speech: WNL Eye Contact: WNL Motor Activity: WNL Mood: Depressed Affect: Flat Sleep: WNL Appetite: Fair Memory: WNL Attention / Concentration: WNL Behavior: Cooperative and Restless Hallucinations: None Delusions: None Thought Content: WNL SI: Denied - Arrived to [facility] due to an intentional overdose on medications and being found unresponsive HI: Denied Thought Process: WNL Orientation Impairment: None Insight: Poor Judgment: Poor Impulse Control: Poor Medications: Scheduled Meds: MEDSSCHEDULED[1] Continuous Infusions: MEDSCONTINUOUS[2] PRN Meds: MEDSPRN[3] Risk Assessment: Self-Harm: None Suicidal Behavior: Past, Current, Ideation, Plan, and Intent Homicidal Behavior: None Physical Assault: None Physical Aggression: None Property Damage: None Verbal Aggression: None Family history of suicide: None reported Protective Factors: Patient has stable housing. Patient has outpatient providers and access to mental health support. Patient has social support in her neighbor. Risk Factors: Patient has terminal cancer. Patient has increased depression. Patient has limited familial support. Suicide Risk: Based on patient's history and current presentation, their level of risk for intentional lethal harm is considered High Safety Plan Completed: no No safety plan completed due to patient being a bed search. Interventions: Risk/crisis assessment, active listening, empathetic listening Response to interventions: Patient was cooperative, engaged, and aligned with speaking with S. DSM-5TR Diagnosis: F33.2 Major Depression, severe, recurrent Plan: Based on the information above, patient would continue to benefit from being an involuntary inpatient psychiatric admission for safety and containment, mood stabilization, medication evaluation, therapeutic milieu, and coordination with outpatient and community supports. Recommendations were discussed with requesting provider. It was a pleasure to assist Krys Travis here at [facility]. This report is written and finalized by: Kenn Servin Behavioral Health Specialist [facility] (Tel): [phone] / : [phone] [1] apixaban, 5 mg, oral, BID levothyroxine, 75 mcg, oral, q AM AC mirtazapine, 30 mg, oral, Nightly oxyCODONE, 5 mg, oral, BID propranoloL, 10 mg, oral, BID [2] [3] PRN medications: LORazepam, zolpidem * Dionna Eldridge - 03/28/2025 10:51 AM EDTAssociated Order(s): IP CONSULT TO SCHOOL GUIDANCE COUNSELOR Images from the original note were not included. Behavioral Health Services - Mental Status Update Important times Time assessment started: 03/28/25 10:00 am Time of disposition: 03/28/25 10:30 am Location: [facility] Emergency Room Consulted case with: Aisha Lyons LCSW Insurance information: Insurance: Be[employer] Verified by: Yulia Reason for Consultation / Presenting Problem: Krys Travis is being seen today for a 24hour re-evaluation due to their state wide bed search being exhausted. 60-year-old female with history of metastatic cancer on chemotherapy, history of prior suicide attempt presenting to the emergency department via EMS. Per EMS, patient was found unresponsive in her bed, received Narcan and responded well, was hypoxic and put on 2L of O2 via NC. EMS reports she took an unknown amount of oxycodone and zolpidem. Per patient, that she does endorse taking multiple medications but is unsure which ones and how much. Did so with the intention of killing herself. Tells me she is very tired, sick of being sick and sick of chemotherapy. Becomes quickly frustrated with my questions, demands to be discharged and to have her IV taken out. Denies HI, A/V hallucinations. Wants to know who brought her to the ER and wants to ensure that her home is safe as EMS clearly had to break and to find her. Krys was initially seen on 03/26/25 by crisis and deemed inpatient psychiatric bed search. She wasseen today for a mental status update. Krys is a [place] Island[place] Speaking female and an interpretor was used. She reported I feel better now John would like to go home . She stated at the time I was in a lot of pain with my back and I have been feeling depressed . She stated I have two daughters but they really don't bother with me . She stated I do have a neighbor who is friendly with me . Collaterals, contact information, and engagement level: Therapist: MIRNA waiting for a new therapist [phone] Psychiatrist: MIRNA Wilson [phone] PCP: Unknown Family: Sister Brit Travis [phone] Mental Status Speech: WNL Eye Contact: WNL Motor Activity: WNL Mood: WNL, Anxious, and Depressed Affect: Flat Sleep: WNL Appetite: Fair Memory: WNL Attention / Concentration: WNL Behavior: Cooperative Hallucinations: None Delusions: None Thought Content: WNL SI: Overdosed on medications HI: Denied Thought Process: Helpless and hopeless Orientation Impairment: None Insight: Poor Judgment: Poor Impulse Control: Poor Medications: Scheduled Meds: MEDSSCHEDULED[1] Continuous Infusions: MEDSCONTINUOUS[2] PRN Meds: MEDSPRN[3] Risk Assessment: Self-Harm: None Suicidal Behavior: Overdosed on medications Homicidal Behavior: None Physical Assault: None Physical Aggression: None Property Damage: None Verbal Aggression: None Family history of suicide: None reported Protective Factors: Stable housing Has a neighbor who is involved Risk Factors: Increased depression Lack of supports Overdosed on medications. Suicide Risk: Based on patient's history and current presentation, their level of risk for intentional lethal harm is considered High Safety Plan Completed: yes Krys is going inpatient for safety. Interventions: Used active listening Response to interventions: Krys was responsive DSM-5TR Diagnosis: F33.2 Major Depression, severe, recurrent Plan: Krys is at high risk for harm to herself and had overdosed on medications. She is at low risk for harm to others. She continues to benefit from inpatient level of care for safety, stabilization and medication evaluation. She is on a section 12 involuntary. Recommendations were discussed with requesting provider. It was a pleasure to assist Krys Travis here at [facility]. This report is written and finalized by: Dionna Eldridge MS Behavioral Health Specialist [facility] (Tel): [phone] / : [phone] [1] apixaban, 5 mg, oral, BID levothyroxine, 75 mcg, oral, q AM AC mirtazapine, 30 mg, oral, Nightly oxyCODONE, 5 mg, oral, BID propranoloL, 10 mg, oral, BID [2] [3] PRN medications: LORazepam, zolpidem * Kenn Servin - 03/27/2025 9:47 PM EDT Images from the original note were not included. Behavioral Health Services - Mental Status Update Important times Time assessment started: 20:15 Time of disposition: 20:45 Location: Emergency Room (ER) Consulted case with: Aishwarya Travis PsyD Insurance information: Insurance: Unable to verify due to Virtual [employer] being unavailable. Insurance ID: Verified by: Reason for Consultation / Presenting Problem: Krys Travis is being seen today for a 24hour re-evaluation due to their state wide bed search being exhausted. S utilized video healthcare interpreter to complete assessment. Patient was eating cristiana crackers in bed and discussed her frustration with not being able to shower. She was amenable to using wipes in the bathroom and changing into clean clothes until a female guard is available to escort her to the shower. Patient reported that she is no longer feeling suicidal. When asked what changed she stated that she has a lot of pain in her body due to the cancer and having a kidney operation, is lonely at home, and struggles because she does not have a GILL TENDER to support her in the home. S asked question in a different way and patient continued to speak about her chronic pain. She denied HI/AH/VH. Collaterals, contact information, and engagement level: Therapist: None reported Psychiatrist: None reported PCP: Unknown Family: SisterBrit: Other: None reported Mental Status Speech: WNL Eye Contact: WNL Motor Activity: WNL Mood: Neutral and Depressed Affect: Flat Sleep: Poor Appetite: Fair Memory: Mild Impairment Attention / Concentration: Mild Impairment Behavior: Cooperative and Calm Hallucinations: None Delusions: None Thought Content: WNL SI: Denied HI: Denied Thought Process: Tangential Orientation Impairment: None Insight: Poor Judgment: Poor Impulse Control: Poor Medications: Scheduled Meds: MEDSSCHEDULED[1] Continuous Infusions: MEDSCONTINUOUS[2] PRN Meds: MEDSPRN[3] Risk Assessment: Self-Harm: None Suicidal Behavior: Past, Current, Ideation, Plan, and Intent Homicidal Behavior: None Physical Assault: None Physical Aggression: None Property Damage: None Verbal Aggression: None Family history of suicide: Yes, a lot of people Protective Factors: Patient has stable housing and income. Patient has familial support. Patient isable to advocate for herself. Risk Factors: Patient has cancer. Patient arrived due to suicide attempt. Patient does not have outpatient mental health support. Patient has unresolved trauma. Suicide Risk: Based on patient's history and current presentation, their level of risk for intentional lethal harm is considered High Safety Plan Completed: no No safety plan completed due to patient being a bed search. Interventions: Risk/crisis assessment, active listening, empathetic listening, support, validation Response to interventions: Patient was cooperative, engaged, and aligned with speaking with S. 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 Patient would also benefit from exploring how to obtain more practical supports at home, such as a GILL TENDER. Upon discharge, patient would benefit from a follow-up appointment with outpatient mental health providers. Recommendations were discussed with requesting provider. It was a pleasure to assist Krys Matias Travis here at [facility]. This report is written and finalized by: Kenn Servin Behavioral Health Specialist [facility] (Tel): [phone] / : [phone] [1] apixaban, 5 mg, oral, BID levothyroxine, 75 mcg, oral, q AM AC mirtazapine, 30 mg, oral, Nightly oxyCODONE, 5 mg, oral, BID propranoloL, 10 mg, oral, BID [2] [3] PRN medications: LORazepam, zolpidem * Jemima Lucas [facility] - 03/26/2025 5:47 PM EDT Images from the original note were not included. Behavioral Health Services - Crisis Assessment Important times Time of arrival: 6:43 PM 2025 Time of referral: 12:46 PM 03/26/2025 Time of readiness: 1:00 PM 03/26/2025 Time assessment started: 1:30 PM 03/26/2025 Time of disposition: 3:00 PM 03/26/2025 Location: [facility] Yellow Room 22 Consulted case with: Kristy Lopez [facility] Insurance information: Unable to verify insurance due to [employer] being down. Insurance: Insurance ID: Verified by: Reason for Consultation / Presenting Problem: Krys Travis is being seen today for a consultive service at the request of Ayden Vera MD to assess risk and identify appropriate level of care. Krys arrived at [facility] on 03/25/25 via EMS from home after being found by her family on the floor and they called 911. Yesterday was Krys 60th birthday. It was reported that Krys attempted suicide by taking an unknown amount of Oxycodone and Zolpidem. Kyrs was giving IV Narcan by EMS. During the crisis evaluation Krys was engaging she reported life stressor and fighting cancer for the past3- years. Her relationship with family and four children has been strained for the last couple of years. She reported history of anxiety and depression she does not have therapist or psychiatrist. She then reported that she had a therapist through [facility] named Sada Taylor. Her insight and judgement were poor. She was oriented X4. History of Present Illness: Krys is a 60 y.o. female with Chief Complaint Patient presents with Suicide Attempt Overdosed unknown amount of oxycodone & Zolpidem Social/Educational History: Guardian - if Yes, provide contact information: Self [place] Status: n/a State Agency Involvement: n/a [place] Order: n/a Marital Status: Single Alternative Placement Details: n/a Living Situation for patient: Krys has a stable home and lives alone Household Members/Age: Friendships/Family/Social Peer Support/Relationships: No one was reported Highest level of education: 5th grade Comments (Include Learning Needs): Unknown Occupation: Unemployed / Income SSI Employment/Extracurricular Activities/Hobbies: None reported Limitations of Daily Activities: None reported Strengths/Supports: No one Collaterals, contact information, and engagement level: Therapist: Non one currently Psychiatrist: No one currently PCP: Unknown Family: Sister Brit Travis [phone] This clinician spoke with Krys's sister Brit and she reported that her sister has a history of depression, and this is her second time trying to commit suicide the first time was a couple years back. She reported that her sister has a bad temper and doesn't want to hear what people tell her. She has four sons and three of them reside in [place] and they can't visit her often because they work. She has one son that lives in [place], and he tries his best to visit her when he is not working. Brit tried to help her sister, but she pushed the family away. She is currently doing chemo at home and every and at the chemo clinic. Sister has come to visit her while she's at [facility]. Sister would like us to keep her in the loop on her sister status. Mental Status Speech: Slowed / [place] Islander speaking Eye Contact: WNL Motor Activity: Restless Mood: Depress Anxious Affect: Flat Sleep: Poor Appetite: Poor Memory: WNL Attention / Concentration: WNL Behavior: Cooperative Appearance: Hospital clothing she was cleaned Hallucinations: None Delusions: None Thought Content: WNL SI: Suicidal with a plan to OD on medications HI: Denied Thought Process: WNL Orientation Impairment: None Insight: WNL Judgment: WNL Impulse Control: WNL Substance Use History (Including family history): Denied Utox Results: Negative Substance Use Treatment History: Denied Mental Health Treatment History: Outpatient Mental Health Treatment: None reported Previous or Current Psychological Diagnosis: Anxiety and Depression Prior Psychiatric Hospitalizations/Residential Treatment Facilities: None reported Other Comments Regarding Mental Health Treatment History: None reported Mental Health Concerns in Family: None reported Trauma History: Didn't want to talk about her trauma Medications: Scheduled Meds: MEDSSCHEDULED[1] Continuous Infusions: MEDSCONTINUOUS[2] PRN Meds: MEDSPRN[3] Risk Assessment: Self-Harm: None Suicidal Behavior: Past, Current, Ideation, Plan, and Intent Homicidal Behavior: None Physical Assault: None Physical Aggression: None Property Damage: None Verbal Aggression: None Family history of suicide: Yes, a lot of people Protective Factors: -Engaging -Stable home -Supportive family -No substance use was reported -Denied HI/VH/AH Risk Factors: -Cancer -Hx and recent Suicidal with a plan and intent (OD on medications) -She pushes her family away -No current providers Suicide Risk: Based on patient's history and current presentation, their level of risk for intentional lethal harm is considered High Safety Plan Completed: no Krys will remain at [facility] ED until a [facility] bed is secure. Interventions: -Validating -Active listening Response to interventions: Krys was engaging but not open to resources. 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 Upon discharge, she would benefit from following up with outpatient providers so she can continue medication management, physical ability andto gain insight/psychoeducation into his mental health symptoms. Recommendations were discussed with requesting provider. It was a pleasure to assist Krys Travis here at [facility]. This report is written and finalized by: TERESA Wells Behavioral Health Specialist [facility] (Tel): [phone] / : [phone] [1] acetaminophen, 650 mg, oral, Once [2] [3] * Brandon Polanco - 2025 10:51 PM EDT The patient has a co-respond from the N/piercing specialist and the police- he was not assessed. The [facility] clinician reported that the patient was sent into the [facility] ED due to overdosed on unknown amount of oxycodone pills; she has two bottles of 32 pills one was empty and the second missing 4 pills. She previously had 4 SI attempts. 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 Sister's Bárbara Brunson #: [phone] documented in this encounter Plan of Treatment Not on file documented as of this encounter Procedures Procedure Name Priority Date/Time Associated Diagnosis Comments ECG ANNOTATED 03/31/2025 ECG 12-LEAD STAT 03/30/2025 12:59 PM EDT POCT GLUCOSE BLOOD Routine 03/29/2025 8: 22 AM EDT POCT GLUCOSE BLOOD Routine 03/28/2025 9: 05 AM EDT ACTIVATED PARTIAL THROMBOPLASTIN TIME STAT 03/26/2025 6:31 PM EDT PROTHROMBIN TIME WITH INR STAT 03/26/2025 6:31 PM EDT DRUG ABUSE SCREEN 8A PANEL, URINE STAT 03/26/2025 9:34 AM EDT BUPRENORPHINE SCREEN, URINE STAT 03/26/2025 9:34 AM EDT METHADONE SCREEN, URINE STAT 03/26/20 25 9:34 AM EDT PHENCYCLIDINE, URINE STAT 03/26/2025 9:34 AM EDT THYROID STIMULATING HORMONE WITH REFLEX TO FREE T4 AND FREE T3 STAT 2025 9:44 PM EDT CBC WITH AUTO DIFFERENTIAL STAT 2025 9:44 PM EDT CBC AND DIFFERENTIAL STAT 2025 9:44 PM EDT MAGNESIUM Add-On 2025 9:44 PM EDT ETHANOL STAT 2025 9:44 PM EDT ACETAMINOPHEN LEVEL Timed 2025 9 :44 PM EDT ACETAMINOPHEN LEVEL STAT 2025 9 :44 PM EDT SALICYLATE LEVEL STAT 2025 9:44 PM EDT COMPREHENSIVE METABOLIC PANEL STAT 2025 9:44 PM EDT documented in this encounter Results * ECG-Annotated (03/31/2025) us Provider Onbase ECG ORDERABLES Final Result * ECG 12 lead (03/30/2025 12:59 PM EDT) Ventricular Rate ECG 60 BPM GEMUSE Atrial Rate 60 BPM GEMUSE P-R Interval 198 ms GEMUSE QRS Duration 90 ms GEMUSE Q-T Interval 434 ms GEMUSE QTc 434 ms GEMUSE P Wave Calvin 31 degrees GEMUSE R Calvin 38 degrees GEMUSE T Calvin 47 degrees GEMUSE ECG Interpretation Normal sinus rhythm Normal ECG When compared with ECG of 09-MAY-2024 14:44, No significant change was found Confirmed by Cherie HUERTAS JOHN ([id number]) on 03/30/2025 7:33:50 PM GEMUSE 03/30/2025 12:5 9 PM EDT 03/30/2025 7:33 PM EDT us Zoie Florentino MD ECG ORDERABLES Final Result GEMUSE * POCT Glucose, blood (03/29/2025 8:22 AM EDT) [facility] Signature Glucose POCT 85 70 - 100 mg/dL 03/29/2025 8:30 AM EDT [facility] Blood Capillary blood specimen / Unknown 03/29/2025 8:22 AM EDT 03/29/2025 8:31 AM EDT Everardo Gray MD LAB POINT OF CARE TEST DOCKED DEVICE UNSOLICITED RESULTS Final Result Performing Organization Address [facility] Co de Phone Number [facility] [address] [place] [address], [place] [phone] * POCT Glucose, blood (03/28/2025 9:05 AM EDT) [facility] Glucose POCT 81 70 - 100 mg/dL 03/28/2025 9:22 AM EDT [facility] Blood Capillary blood specimen / Unknown 03/28/2025 9:05 AM EDT 03/28/2025 9:23 AM EDT us Benny Ball MD LAB POINT OF CARE TE ST DOCKED DEVICE UNSOLICITED RESULTS Final Result Performing Organization Address [facility] de Phone Number [facility] [address] [place] [address], [place] [phone] * Activated Partial Thromboplastin Time - STAT (03/26/2025 6:31 PM EDT) [facility] aPTT 32.6 24.1 - 39.3 sec LAB COAGULATION METHOD 03/26/2025 7:16 PM EDT [facility] Blood Venous blood specimen / Unknown Venipuncture / Unknown 03/26/2025 6:31 PM EDT 03/26/2025 6:53 PM EDT Ayden Vera MD LAB BLOOD ORDERABLES Shelli l Result [facility] [address] [place] [address], [place] [phone] * Prothrombin Time with INR - STAT (03/26/2025 6:31 PM EDT) Pathologist [facility] Protime 12.3 10.6 - 13.9 sec LAB COAGULATION METHOD 03/26/2025 7:16 PM EDT [facility] INR 1.0 LAB COAGULATION METHOD 03/26/2025 7:16 PM EDT [facility] Blood Venous blood specimen / Unknown Venipuncture / Unknown 03/26/2025 6:31 PM EDT 03/26/2025 6:53 PM EDT us Ayden Vera MD LAB BLOOD ORDERABLES Shelli l Result [facility] [address] [place] [address], [place] [phone] * (ABNORMAL) Drug abuse screen 8a panel, urine (03/26/2025 9:34 AM EDT) [facility] Amphetamine Screen, Ur Negative Negative LAB CHEMISTRY METHOD 5 10:50 AM EDT [facility] Comment:Certain OTC medicati ons containing ephedrine, phenylephrine, pseudoephedrine and phenylpropanolamine can cause false positive results. Barbiturate Screen, Ur Negative Negative LAB CHEMISTRY METHOD 5 10:50 AM EDT [facility] Benzodiazepine Screen, Ur Positive(A ) Negative LAB CHEMISTRY METHOD 5 10:50 AM EDT [facility] Cocaine Screen, Ur Negative Negative LAB CHEMISTRY METHOD 5 10:50 AM EDT [facility] Opiate Screen, Ur Negative Negative LAB CHEMISTRY METHOD 5 10:50 AM EDT [facility] Cannabinoid (THC) Screen, Ur Negative Negative LAB CHEMISTRY METHOD 10:50 AM EDT [facility] Comment:Specimens from patie nts taking pantoprazole sodium (Protonix) have been shown to produce false positive results. Oxycodone Screen, Ur Negative Negative LAB CHEMISTRY METHOD 10:50 AM EDT [facility] Fentanyl, Ur Negative Negative LAB CHEMISTRY METHOD 10:50 AM EDT [facility] Urine Urine specimen obtained by clean catch procedure / Unknown Non-blood Collection / Unknown 03/26/2025 9:34 AM EDT 03/26/2025 10:15 AM EDT Narrative [facility] - 03/26/2025 10:50 AM EDT Assay cutoffs: Amphetamines 1000 ng/mL Barbiturates 200 ng/mL Benzodiazepines 200 ng/mL Cocaine 300 ng/mL Fentanyl 1 ng/mL Opiates 300 ng/mL Oxycodone 100 ng/mL THC 50 ng/mL Semi-quantitative assay for screening purposes only. Unconfirmed screening result should not be used for non-medical purposes. *ALTERNATE METHOD CONFIRMATION DONE UPON REQUEST ONLY* Zoie Florentino MD LAB URINE ORDERABLES Final Res ult [facility] [address] [place] [address], * Methadone, urine (03/26/2025 9:34 AM EDT) Methadone Screen, Urine Negative Negative LAB CHEMISTRY METHOD 03/26/2025 10:50 AM EDT [facility] Comment: Assay cutoff 300 ng/mL Semi-quantitative assay for screening purposes only. Unconfirmed screening result should not be used for non-medical purposes. *ALTERNATE METHOD CONFIRMATION DONE UPON REQUEST ONLY* Urine Urine specimen obtained by clean catch procedure / Unknown Non-blood Collection / Unknown 03/26/2025 9:34 AM EDT 03/26/2025 10:15 AM EDT Zoie Florentino MD LAB URINE ORDERABLES Final Res ult Performing Organization Address [facility] Co de Phone Number [facility] [address] [place] [address], [place] [phone] * Phencyclidine, urine (03/26/2025 9:34 AM EDT) PCP Scrn, Ur Negative Negative LAB CHEMISTRY METHOD 03/26/2025 10:56 AM EDT [facility] Comment: Assay cutoff 25 ng/mL Semi-quantitative assay for screening purposes only. Unconfirmed screening result should not be used for non-medical purposes. *ALTERNATE METHOD CONFIRMATION DONE UPON REQUEST ONLY* Urine Urine specimen obtained by clean catch procedure / Unknown Non-blood Collection / Unknown 03/26/2025 9:34 AM EDT 03/26/2025 10:15 AM EDT Zoie Florentino MD LAB URINE ORDERABLES Final Res ult Performing Organization Address [facility] Co de Phone Number [facility] [address] [place] [address], [place] [phone] * Buprenorphine screen, urine (03/26/2025 9:34 AM EDT) Buprenorphine Screen Urine Negative Negative LAB CHEMISTRY METHOD 03/26/2025 10:50 AM EDT [facility] Urine Urine specimen obtained by clean catch procedure / Unknown Non-blood Collection / Unknown 03/26/2025 9:34 AM EDT 03/26/2025 10:15 AM EDT Narrative [facility] - 03/26/2025 10:50 AM EDT Assay cutoff 5 ng/mL Semi-quantitative assay for screening purposes only. Unconfirmed screening result should not be used for non-medical purposes. *ALTERNATE METHOD CONFIRMATION DONE UPON REQUEST ONLY* Zoie Florentino MD LAB URINE ORDERABLES Final Res ult Performing Organization Address City/[facility]/ZIP Co de Phone Number [facility] [address] [place] [address], [place] [phone] * (ABNORMAL) Magnesium (2025 9:44 PM EDT) Magnesium 1.8(L) 1.9 - 2.6 mg/dL LAB CHEMISTRY METHOD 03/26/2025 12:17 AM EDT [facility] Blood Venous blood specimen / Unknown Venipuncture / Unknown 2025 9:44 PM EDT 2025 10:00 PM EDT Zoie Florentino MD LAB BLOOD ORDERABLES Final Res ult Performing Organization Address [facility] Co de Phone Number [facility] [address] [place] [address], [place] [phone] * (ABNORMAL) Acetaminophen level (2025 9:44 PM EDT) Acetaminophen Level <2.0(L) 10.0 - 30.0 mcg/mL LAB CHEMISTRY METHOD 2025 10:46 PM EDT [facility] Blood Venous blood specimen / Unknown Venipuncture / Unknown 2025 9:44 PM EDT 2025 10:00 PM EDT Zoie Florentino MD LAB BLOOD ORDERABLES Final Res ult Performing Organization Address [facility]/ZIP Co de Phone Number [facility] [address] [place] [address], [place] [phone] * (ABNORMAL) CBC auto differential (2025 9:44 PM EDT) WBC 3.9(L) 4.8 - 10.8 K/mcL LAB HEMETOLOGY METHOD 2025 10:07 PM EDT [facility] RBC 3.20(L) 3.80 - 4.80 M/mcL [facility] Hemoglobin 10.9(L) 11.5 - 16.0 g/dL LAB HEMETOLOGY METHOD 2025 10:07 PM [facility] Hematocrit 32.6(L) 35.0 - 47.0 % LAB HEMETOLOGY METHOD 2025 10:07 PM [facility] MCV 101.9(H) 79.0 - 98.0 FL LAB HEMETOLOGY METHOD 2025 10:07 PM [facility] MCH 34.1(H) 27.0 - 32.0 pcg LAB HEMETOLOGY METHOD 2025 10:07 PM [facility] MCHC 33.4 32.0 - 37.0 g/dL LAB HEMETOLOGY METHOD 2025 10:07 PM [facility] RDW 13.0 11.0 - 15.0 % LAB HEMETOLOGY METHOD 2025 10:07 PM [facility] Platelets 147 130 - 400 K/mcL LAB HEMETOLOGY METHOD 2025 10:07 PM [facility] MPV 10.0 7.0 - 11.0 FL LAB HEMETOLOGY METHOD 2025 10:07 PM [facility] NRBC 0.0 <1.0 % LAB HEMETOLOGY METHOD 2025 10:07 PM [facility] NRBC Absolute 0.00 <0.10 K/mcL LAB HEMETOLOGY METHOD 2025 10:07 PM [facility] Neutrophils Relative 72.5 % LAB HEMETOLOGY METHOD 2025 10:07 PM EDT [facility] Lymphocytes Relative 16.8 % [facility]25 10:[facility] Monocytes Relative 8.8 % LAB HEMETOLOGY METHOD 2025 10:07 PM [facility] Eosinophils Relative 1.3 % LAB HEMETOLOGY METHOD 2025 10:07 PM [facility] Basophils Relative 0.3 % LAB HEMETOLOGY METHOD 2025 10:07 PM [facility] Immature Granulocytes Relative 0.3 % LAB HEMETOLOGY METHOD 2025 10:07 PM [facility] Neutrophils Absolute 2.80 1.50 - 7.00 K/mcL LAB HEMETOLOGY METHOD 2025 10:07 PM [facility] Lymphocytes Absolute 0.65(L) 1.00 - 5.00 K/mcL LAB HEMETOLOGY METHOD 2025 10:07 PM [facility] Monocytes Absolute 0.34 0.20 - 1.00 K/mcL LAB HEMETOLOGY METHOD 2025 10:07 PM [facility] Eosinophils Absolute 0.05 0.00 - 0.50 K/mcL LAB HEMETOLOGY METHOD 2025 10:07 PM [facility] Basophils Absolute 0.01 0.00 - 0.20 K/mcL LAB HEMETOLOGY METHOD 2025 10:07 PM [facility] Immature Granulocytes Absolute 0.01 0.00 - 0.03 K/mcL LAB HEMETOLOGY METHOD 2025 10:07 PM [facility] Blood Venous blood specimen / Unknown Venipuncture / Unknown 2025 9:44 PM EDT 2025 10:00 PM EDT us Zoie Florentino MD LAB BLOOD ORDERABLES Final Res ult Performing Organization Address City/[facility]/ZIP Co de Phone Number [facility] [address] [place] [address], [place] [phone] * (ABNORMAL) Salicylate level (2025 9:44 PM EDT) Salicylate Level <1.7(L) 2.0 - 29.0 mg/dL LAB CHEMISTRY METHOD 2025 10:47 PM EDT [facility] Blood Venous blood specimen / Unknown Venipuncture / Unknown 2025 9:44 PM EDT 2025 10:00 PM EDT us Zoie Florentino MD LAB BLOOD ORDERABLES Final Res ult Performing Organization Address [facility] de Phone Number [facility] [address] [place] [address], [place] [phone] * Ethanol (2025 9:44 PM EDT) Ethanol Level <3 0 - 10 mg/dL LAB CHEMISTRY METHOD 2025 10:47 PM EDT [facility] Blood Venous blood specimen / Unknown Venipuncture / Unknown 2025 9:44 PM EDT 2025 10:00 PM EDT us Zoie Florentino MD LAB BLOOD ORDERABLES Final Res ult Performing Organization Address City/[facility]/ZIP Co de Phone Number [facility] [address] [place] [address], [place] [phone] * (ABNORMAL) Acetaminophen level (2025 9:44 PM EDT) Acetaminophen Level 3.8(L) 10.0 - 30.0 mcg/mL LAB CHEMISTRY METHOD 2025 10:47 PM EDT [facility] Blood Venous blood specimen / Unknown Venipuncture / Unknown 2025 9:44 PM EDT 2025 10:00 PM EDT us Zoie Florentino MD LAB BLOOD ORDERABLES Final Res ult Performing Organization Address [facility]/ZIP Co de Phone Number [facility] [address] [place] [address], [place] [phone] * Thyroid stimulating hormone with reflex to free t4 and free t3 (2025 9:44 PM EDT) [facility] TSH 2.35 0.40 - 4.00 mcIU/mL LAB CHEMISTRY METHOD 2025 11:20 PM EDT [facility] Blood Venous blood specimen / Unknown Venipuncture / Unknown 2025 9:44 PM EDT 2025 10:00 PM EDT us Zoie Florentino MD LAB BLOOD ORDERABLES Final Res ult Performing Organization Address [facility] de Phone Number [facility] [address] [place] [address], [place] [phone] * (ABNORMAL) Comprehensive metabolic panel (2025 9:44 PM EDT) [facility] Sodium 145 133 - 145 mmol/L LAB CHEMISTRY METHOD 2025 10:48 PM EDT [facility] Potassium 3.6 3.5 - 5.5 mmol/L LAB CHEMISTRY METHOD 2025 10:48 PM EDT [facility] Chloride 113(H) 96 - 110 mmol/L LAB CHEMISTRY METHOD 2025 10:48 PM EDT [facility] CO2 27 21 - 32 mmol/L LAB CHEMISTRY METHOD 2025 10:48 PM [facility] Anion Gap 5 3 - 11 LAB CHEMISTRY METHOD 2025 10:48 PM [facility] Glucose 91 70 - 100 mg/dL LAB CHEMISTRY METHOD 2025 10:48 PM [facility] BUN 9 5 - 25 mg/dL LAB CHEMISTRY METHOD 2025 10:48 PM [facility] Creatinine 0.70 0.50 - 1.10 mg/dL LAB CHEMISTRY METHOD 2025 10:48 PM [facility] eGFR 100 >=60 mL/min/1. 73m2 LAB CHEMISTRY METHOD 2025 10:48 PM [facility] Comment:Calculation based on the Chronic Kidney Disease Epidemiology Collaboration (CKD-EPI) equation refit without adjustment for race. BUN/Creatinine Ratio 12.9 LAB CHEMISTRY METHOD 2025 10:48 PM [facility] Calcium 7.9(L) 8.5 - 10.5 mg/dL LAB CHEMISTRY METHOD 2025 10:48 PM [facility] AST (SGOT) 22 10 - 42 unit/L LAB CHEMISTRY METHOD 2025 10:48 PM [facility] ALT (SGPT) 24 10 - 60 unit/L LAB CHEMISTRY METHOD 2025 10:48 PM [facility] Alkaline Phosphatase 56 42 - 121 unit/L LAB CHEMISTRY METHOD 2025 10:48 PM [facility] Total Protein 5.2(L) 6.0 - 8.0 g/dL LAB CHEMISTRY METHOD 2025 10:48 PM [facility] Albumin 3.0(L) 3.2 - 5.0 g/dL LAB CHEMISTRY METHOD 2025 10:48 PM [facility] Total Bilirubin 0.4 0.0 - 1.4 mg/dL LAB CHEMISTRY METHOD 2025 10:48 PM EDT [facility] Blood Venous blood specimen / Unknown Venipuncture / Unknown 2025 9:44 PM EDT 2025 10:00 PM EDT us Zoie Florentino MD LAB BLOOD ORDERABLES Final Res ult [facility] [address] [place] [address], [place] [phone] documented in this encounter Visit Diagnoses Diagnosis Medication overdose, intentional self-harm, initial encounter (CMS/[facility] V24, [facility] V28)- Primary documented in this encounter Administered Medications Inactive Administered Medications - up to 3 most recent administrations Medication Order MAR Action Action Date Dose Rate Site acetaminophen (TYLENOL) tablet 1,000 mg 1,000 mg, oral, Once, On 03/27/25 at 1503, For 1 dose Given 03/27/2025 3:09 PM EDT 1,000 mg acetaminophen (TYLENOL) tablet 650 mg 650 mg, oral, Once, On 03/26/25 at 1330, For 1 dose Given 03/26/2025 6:34 PM EDT 650 mg apixaban (ELIQUIS) tablet 5 mg 5 mg, oral, 2 times daily, First dose on 03/26/25 at 1814, Indication: Atrial Fibrillation Given 03/30/2025 8:27 AM EDT 5 mg Given 03/29/2025 8:10 PM EDT 5 mg Given 03/29/2025 8:17 AM EDT 5 mg levothyroxine (SYNTHROID, LEVOTHROID) tablet 75 mcg 75 mcg, oral, Every morning before breakfast, First dose on 03/26/25 at 1814, ORAL ROUTE: take on an empty stomach and separate from other medications. ENTERAL TUBE ROUTE: If newly initiated enteral nutrition duration is over 5 days, hold enteral nutrition 1 hour before and after drug administration, per ASPEN guidelines. Given 03/30/2025 8:27 AM EDT 75 mcg Given 03/29/2025 6:28 AM EDT 75 mcg Given 03/28/2025 7:57 AM EDT 75 mcg LORazepam (ATIVAN) 2 mg/mL injection - ADS Override Pull Starting on Fri03/25/25 at 2351, For 1 dose, Created by jovanna yoide Prior to IV use, lorazepam injection should be DILUTED with an equal volume of compatible solution; Rate of administration should NOT exceed 2 mg/min. LORazepam (ATIVAN) injection 2 mg 2 mg, intramuscular, Once, On Fri03/25/25 at 2348, For 1 dose, Prior to IV use, lorazepam injection should be DILUTED with an equal volume of compatible solution; Rate of administration should NOT exceed 2 mg/min. Given 03/26/2025 12:07 AM EDT 2 mg Left Deltoid LORazepam (ATIVAN) tablet 1 mg 1 mg, oral, Once, On 03/26/25 at 1658, For 1 dose Given 03/26/2025 5:29 PM EDT 1 mg LORazepam (ATIVAN) tablet 1 mg 1 mg, oral, Nightly PRN, anxiety, Starting on 03/27/25 at 2009 Given 03/28/2025 9:01 PM EDT 1 mg Given 03/27/2025 8:22 PM EDT 1 mg midazolam (VERSED) 1 mg/mL injection - ADS Override Pull Starting on Fri03/25/25 at 2350, For 1 dose, Created by jovanna cota midazolam (VERSED) injection 5 mg 5 mg, intramuscular, Once, On Fri03/25/25 at 2348, For 1 dose Given 03/26/2025 12:07 AM EDT 5 mg Left Anterior Thigh mirtazapine (REMERON) tablet 30 mg 30 mg, oral, Nightly, First dose on 03/27/25 at 2011 Given 03/29/2025 8:10 PM EDT 30 mg Given 03/28/2025 8:59 PM EDT 30 mg Given 03/27/2025 8:22 PM EDT 30 mg oxyCODONE (ROXICODONE) immediate release tablet 5 mg 5 mg, oral, 2 times daily, First dose on 03/27/25 at 2011 Given 03/30/2025 8:27 AM EDT 5 mg Given 03/29/2025 8:10 PM EDT 5 mg Given 03/29/2025 8:17 AM EDT 5 mg propranoloL (INDERAL) tablet 10 mg 10 mg, oral, 2 times daily, First dose on 03/26/25 at 1814 Given 03/30/2025 8:27 AM EDT 10 mg Given 03/29/2025 8:11 PM EDT 10 mg Given 03/29/2025 8:17 AM EDT 10 mg zolpidem (AMBIEN) tablet 10 mg 10 mg, oral, Nightly PRN, sleep, Starting on 03/26/25 at 1900, For 1 dose Given 03/29/2025 8:11 PM EDT 10 mg documented in this encounter Discontinued Medications Medication Sig Discontinue Reason Start Date End Da te atorvastatin (LIPITOR) 10 mg tablet Take 1 tablet (10 mg total) by mouth at bedtime. 03/02/2025 03/26/2025 busPIRone (BUSPAR) 10 mg tablet Take 1 tablet (10 mg total) by mouth 2 times daily. 01/11/2025 03/26/2025 documented as of this encounter Historical Medications * This list may reflect changes made after this encounter. zolpidem (AMBIEN) 10 mg tablet Take 1 tablet (10 mg total) by mouth at bedtime as needed for sleep. 10/01/2018 propranoloL (INDERAL) 10 mg tablet Take 1 tablet (10 mg total) by mouth 2 times daily. 07/13/2024 levothyroxine (SYNTHROID, LEVOTHROID) 75 mcg tablet Take 1 tablet (75 mcg total) by mouth 1 (one) time each day before breakfast. 03/23/2025 Eliquis 5 mg tablet Take 1 tablet (5 mg total) by mouth 2 (two) times a day. busPIRone (BUSPAR) 10 mg tablet Take 1 tablet (10 mg total) by mouth 2 times daily. 01/11/2025 03/26/2025 atorvastatin (LIPITOR) 10 mg tablet Take 1 tablet (10 mg total) by mouth at bedtime. 03/02/2025 03/26/2025 added in this encounter Active and Recently Administered Medications Times are shown in EDT. Scheduled Medication Order 03/28/2025 03/29/2025 03/30/2025 apixaban (ELIQUIS) tablet 5 mg 5 mg, oral, 2 times daily, First dose on 03/26/25 at 1814, Indication: Atrial Fibrillation 0912 (Given - Provider: Faiza Walls RN)2099 (Given - Provider: Cris Dodd RN) 08 (Given - Provider: Ladonna Sandoval, BRICE)2009 (Given - Provider: France Conte, BRICE) 826 (Given - Provider: Cris Mcgovern, BRICE) levothyroxine (SYNTHROID, LEVOTHROID) tablet 75 mcg 75 mcg, oral, Every morning before breakfast, First dose on 03/26/25 at 1814, ORAL ROUTE: take on an empty stomach and separate from other medications. ENTERAL TUBE ROUTE: If newly initiated enteral nutrition duration is over 5 days, hold enteral nutrition 1 hour before and after drug administration, per ASPEN guidelines. 0757 (Given - Provider: Faiza Walls RN) 06 (Given - Provider: Cris Dodd RN) 08 (Given - Provider: Cris Mcgovern RN) mirtazapine (REMERON) tablet 30 mg 30 mg, oral, Nightly, First dose on 03/27/25 at 2011 2058 (Given - Provider: Cris Dodd RN) 2009 (Given - Provider: France Conte RN) oxyCODONE (ROXICODONE) immediate release tablet 5 mg 5 mg, oral, 2 times daily, First dose on 03/27/25 at 2011 0912 (Given - Provider: Faiza Walls RN)2099 (Given - Provider: Cris Dodd RN) 816 (Given - Provider: Ladonna Sandoval RN)2009 (Given - Provider: France Conte RN) 826 (Given - Provider: Cris Mcgovern RN) propranoloL (INDERAL) tablet 10 mg 10 mg, oral, 2 times daily, First dose on 03/26/25 at 1814 0912 (Given - Provider: Faiza Walls RN)2058 (Given - Provider: Cris Dodd RN) 08 (Given - Provider: Ladonna Sandoval, BRICE)2010 (Given - Provider: France Conte RN) 826 (Given - Provider: Cris Mcgovern RN) PRN Medication Order 03/28/2025 03/29/2025 03/30/2025 LORazepam (ATIVAN) tablet 1 mg 1 mg, oral, Nightly PRN, anxiety, Starting on 03/27/25 at 2010 2101 (Given - Provider: Cris Dodd, BRICE) zolpidem (AMBIEN) tablet 10 mg (COMPLETED) 10 mg, oral, Nightly PRN, sleep, Starting on 03/26/25 at 1900, For 1 dose 2010 (Given - Provider: France Conte RN) documented in this encounter Orders EKG Orders Without Results Count Last Ordered D ate First Ordered Date ECG 12-LEAD 1 03/30/2025 Consult Count Last Ordered Date First Orde red Date IP CONSULT TO [employer] 1 2025 documented in this encounter Care Teams Record Tabulating Clerk Relationship Specialty Start Date End Date Physician, No Pcp PCP - General 05/09/24 documented as of this encounter
--- OUTSIDE RECORDS SUMMARY | 2025-04-04 10:59 | XMS_ITS ---
Author Organization [employer] Address 75 [facility] 7t [place] [address] Care Team Providers Care Machinery Mover Name Role Phone Kristy Wilder MD Primary Care Pro vider Bradly Gonzalez MD Unavailable Rk Smith Unavailable Buck Hess DPM Unavailable [phone] Rosanne Mosley Unavailable CHW Complex Status:Outreach In Progress (Enrolling) Start date:03/28/2025 Enrollment reason:ADT Feed Overview CP Assigned Patient ED- Pt went to [facility] ED on 03/25/25. Case Team Name Relationship Phone Rosanne Mosley(Responsible Staff) [phone] Continued Care and Services Coordination
--- OUTSIDE RECORDS SUMMARY | 2025-04-04 11:00 | XMS_ITS | Encounter Summary ---
Author Organization [email or web address] Address 75 [facility] 7 [place] [address] Care Team Providers Care Systems Analyst Developer Name Role Phone Kristy Wilder MD Primary Care Pro vider Bradly Gonzalez MD Unavailable Rk Smith Unavailable Buck Hess DPM Unavailable [phone] Rosanne Mosley Unavailable Reason for Visit * Reason Onset Date Comments Letter for School/Work 12/26/2022 Encounter Details Date Type Department Care Team (Late st Contact Info) Description 12/26/2022 Telephone [facility] MEDICINE [address] [place], [place] [phone] Kristy Wilder MD 230 [place], [place] [phone] Letter for School/Work Social History Tobacco Use [...] for PCP to make a letter for ADJUSTER hours and dx on letter to be faxed to [phone] documented in this encounter Plan of Treatment Upcoming Encounters Date Type Department Care Team (Late st Contact Info) Description 04/15/2025 2:30 PM EST Office Visit [facility] OPTOMETRY [address] [place] [address] Yvonne Miller, OD 230 [place] [address] 04/27/2025 3:00 PM EST Office Visit [facility] ADULT DENTAL 505 [place] [address] Zi Lozano DDS 230 [place] [address] 05/10/2025 1:30 PM EST Clinical Support [facility] MEDICINE 230 [place] [address] 05/16/2025 2:00 PM EST Telemedicine [facility] MED & PEDS 505 [place] [address] Colette Diop, RN 505 [place] [address] documented as of this encounter Visit Diagnoses Not on filedocumented in this encounter Additional Health Concerns Assessment Noted Time PHQ-9 Depression Total Score: 11 022 1:16 PM EST documented as of this encounter Care Teams Systems Analyst Developer Relationship Specialty Start Date End Date Kristy Wilder MD 230 [place] [address] PCP - General Internal Medicine 12/26/22 Bradly Gonzalez MD [address] [place] [address] Vascular Surgery 07/17/22 Rk Smith [address] [place] [address] Otolaryngology 01/14/25 Buck Hess DPM [address] [facility] [address] [place] [address] Podiatry 01/14/25 Rosanne Mosley 03/28/25 Evita Hanna Factory HandCoat Finisher 11/04/[address] [address] Physical Therapy 07/17/22 documented as of this encounter
--- OUTSIDE RECORDS SUMMARY | 2025-04-04 11:00 | XMS_ITS | Encounter Summary ---
Author Organization [facility] [employer] Address 75 [facility] 7 [place] [address] Care Team Providers Care Salesperson Burial Needs Name Role Phone Kristy Wilder MD Primary Care Pro vider Bradly Gonzalez MD Unavailable Rk Smith Unavailable Buck Hess DPM Unavailable [phone] Rosanne Mosley Unavailable Reason for Visit * Reason Comments Care Coordination CP Care Coordination chart review Encounter Details Date Type Department Care Team (Latest Contact Info) Description 03/29/2025 Patient Outreach [facility] MED & PEDS [address] [place] [address] Kristy Wilder MD 230 [place] [address] Care Coordination (CP Care Coordination chart review [...] is assigned to CP Program BHCP to Coat Joiner Lockstitch Evita Hanna. Patient visited [facility] ED on 03/25/25. Last appointment in PCP office on 03/08/25. Next appointment scheduled for 04/25/25. documented in this encounter Plan of Treatment Upcoming Encounters Date Type Department Care Team (Late st Contact Info) Description 04/15/2025 2:30 PM EST Office Visit [facility] OPTOMETRY [address] [place] [address] Yvonne Miller, OD 230 [place] [address] 04/27/2025 3:00 PM EST Office Visit [facility] CHC ADULT DENTAL [address] [place] [address] Zi Lozano DDS 230 [place] [address] 05/10/2025 1:30 PM EST Clinical Support [facility] MEDICINE 230 [place] [address] 05/16/2025 2:00 PM EST Telemedicine [facility] CHC MED & PEDS [address] [place], [place] [phone] Colette Diop, RN 505 [place], [place] [phone] documented as of this encounter Visit Diagnoses Not on filedocumented in this encounter Additional Health Concerns Assessment Noted Time PHQ-9 Depression Total Score: 14 025 11:30 AM EDT documented as of this encounter Care Teams Salesperson Burial Needs Relationship Specialty Start Date End Date Kristy Wilder MD [address] [place] [address] PCP - General Internal Medicine 12/26/22 Bradly Gonzalez MD [address] [place] [address] Vascular Surgery 07/17/22 kR Smith 100 [facility] 100 [place] [address] Otolaryngology 01/14/25 Buck Hess DPM [address] [place] [address] 250 [place] [address] Podiatry 01/14/25 Rosanne Mosley 03/28/25 Evita Hanna Naphthalene OperatorApprentice Plant Attendant 11/04/24 [facility] [address] [place] [address] Physical Therapy 07/17/22 documented as of this encounter
--- OUTSIDE RECORDS SUMMARY | 2025-04-04 11:00 | XMS_ITS | Clinical Summary ---
Author Organization [facility] Address [address] [place] [address] Care Team Providers Care Open Hearth Furnace Laborer Name Role Phone Unavailable Primary Care Provider Unavailabl e Source Comments PLEASE NOTE, if this patient is a minor, it may be UNLAWFUL to discuss sensitive information that is contained in these records (such as FAMILY PLANNING, MENTAL HEALTH or SUBSTANCE ABUSE) with the minor patient's parent or other person without the patient's specific authorization.[facility] Medications busPIRone (BUSPAR) 10 mg tablet Take 10 mg by mouth twice a day. 01/11/2025 Active propranoloL (INDERAL) 10 mg tablet Take 10 mg by mouth 2 (two) times daily. 01/18/2025 Active sertraline (ZOLOFT) 100 mg tablet Take 100 mg by mouth daily. 01/11/2025 Active levothyroxine 75 mcg tablet Take 75 mcg by mouth once daily. 12/22/2024 Active zolpidem (AMBIEN) 10 mg tablet Take 10 mg by mouth nightly at bedtime. 03/01/2025 Active Active Problems Problem Noted Date Diagnosed Date Moderate episode of recurrent major depressive d isorder 01/12/2025 Encounters Date Type Department Care Team Description 03/08/2025 12:00 PM EDT Behavioral Health Visit [facility] [address] [place] [address] RUFUS MEDEROS [phone] Tono Zelaya, NOVAHNAlan from Last 3 Months Social History Tobacco Use Types Packs/Day Years Used Date Smoking Tobacco: Never Assessed Comments Unknown Sex and Gender Information Value Date Recorded Sex Assigned at Female 01/24/2025 1:05 PM PDT Legal Sex Female 1:05 PM PDT Gender Identity Female 01/24/2025 1:05 PM PDT Sexual Orientation Not on file Plan of Treatment Health Maintenance Due Date Last Done Comments Anxiety Screening 1967 Depression Monitoring 1967 HPV Screening (self-collect) 1967 HPV Screening 1967 Pap + HPV 1967 Tobacco Screening 1967 Hypertension Screening (#1) 1985 Cervical Cancer Screening 1988 Pap Smear 1988 Breast Cancer Screening (Mammogram) 2007 CT Colonography 2012 Colonoscopy 2012 Colorectal Cancer Screening 2012 FIT/gFOBT 2012 Fecal DNA 2012 Flexible Sigmoidoscopy 2012 Alcohol and Drug Screen 06/09/2024 TSH Monitoring 12/22/2025 12/22/2024 Diabetes Screening 12/23/2027 12/22/2024, 0 12/22/2024, 12/22/2024, Additional history exists Imm-DTaP/Tdap/Td (2 - Td or Tdap) 04/09/2029 019 Lipid Screening 12/22/2029 12/22/2024 Imm-Zoster, Recombinant Completed 12/31/2021, 09/06 Imm-Pneumococcal 50+ Completed 03/11/2023, 04/09/20 Imm-Hepatitis B Completed 03/02/2024, 08/08, 08/01/2023 HIV Screening Completed 12/22/2024, 12/07, 07/23/2023, Additional history exists Hepatitis C Screening Completed 12/22/2024 Ipn-DESOG-02 Completed 03/08/2025, 11/2021, 05/27/2021, Additional history exists Imm-Influenza Completed 03/08/2025, 08/2022, 05/14/2022, Additional history exists Cervical Ablation/Cold-Knife Conization Discontinued Cervical Cryotherapy Discontinued Colposcopy Discontinued Excision/Leep Discontinued HPV Genotyping Discontinued Vaginal Pap Discontinued Vulvoscopy Discontinued Insurance [place] [employer]
--- OUTSIDE RECORDS SUMMARY | 2025-04-04 11:00 | XMS_ITS | Encounter Summary ---
Author Organization [employer] Address 75 [facility] 7 [place] [address] Care Team Providers Care Electrical Automation Engineer Name Role Phone Kristy Wilder MD Primary Care Pro vider Bradly Gonzalez MD Unavailable Rk Smith Unavailable Buck Hess DPM Unavailable [phone] Rosanne Mosley Unavailable Reason for Visit * Reason Onset Date Comments Nurse Triage 08/08/2023 Encounter Details Date Type Department Care Team (Late st Contact Info) Description 08/08/2023 Telephone [facility] MEDICINE [address] [place], [place] [phone] Kristy Wilder MD 230 [place], [place] [phone] Nurse Triage Social History Tobacco Use Types [...] EST Triage call returned to patient with Luminescent Bottling Supervisor [phone]. Patient with soft voice and weakness. Received [...] to access 911 EMS for transport to [facility] ED ( followed by Oncologist) there. [...] accepted this outcome Please contact pt at [phone] (Bengali) documented in this encounter Plan of Treatment Upcoming Encounters Date Type Department Care Team (Late st Contact Info) Description 04/15/2025 2:30 PM EST Office Visit [facility] OPTOMETRY [address] [place] [address] Yvonne Miller, OD 230 [place] [address] 04/27/2025 3:00 PM EST Office Visit [facility] ADULT DENTAL 505 [place] [address] Zi Lozano DDS 230 [place] [address] 05/10/2025 1:30 PM EST Clinical Support [facility] MEDICINE 230 [place] [address] 05/16/2025 2:00 PM EST Telemedicine [facility] MED & PEDS 505 [place] [address] Colette Diop, RN 505 [place] [address] documented as of this encounter Visit Diagnoses Not on filedocumented in this encounter Additional Health Concerns Assessment Noted Time PHQ-9 Depression Total Score: 16 023 11:20 AM EDT documented as of this encounter Care Teams Electrical Automation Engineer Relationship Specialty Start Date End Date Kristy Wilder MD 230 [place] [address] PCP - General Internal Medicine 12/26/22 Bradly Gonzalez MD [address] [place] [address] Vascular Surgery 07/17/22 Rk Smith [address] [place], [place] [address] Otolaryngology 01/14/25 Buck Hess DPM [address] [facility] [address] [place] [address] Podiatry 01/14/25 Rosanne Mosley 03/28/25 Evita Hanna Ceramic Tile MechanicLandscape And Yardwork Laborer 11/04/24 [facility] CORE [address] [place] [address] Physical Therapy 07/17/22 documented as of this encounter
--- OUTSIDE RECORDS SUMMARY | 2025-04-04 11:00 | XMS_ITS | Encounter Summary ---
Author Organization [employer] Address 75 [facility] 7t [place] [address] Care Team Providers Care Advice Line Rn Name Role Phone Khloe Fonseca Primary Care Provider Kristy Ring MD Primary Care Pro vider Bradly Gonzalez MD Unavailable Rk Smith Unavailable Buck Hess DPM Unavailable [phone] Rosanne Mosley Unavailable Reason for Visit * Reason Onset Date Comments pt1 10/03/2022 Encounter Details Date Type Department Care Team (Late st Contact Info) Description 10/03/2022 Telephone [facility] MEDICINE [address] [place] [address] Khloe Fonseca FNP pt1 Social History Tobacco [...] 3 10/03/2022 9:34 AM EDT Jessenia Boston, LODE MINER Not being able to stop or control [...] oct 07 2022 Time: 2:30 pm address: [address] [place] [address] [address], [place] [address] specialty: # visits: joint supervisor: no Wheelchair: no Date:10/23/22 Time:02 pm address: [facility] specialty: PCP # visits: joint supervisor: no Wheelchair: no Date:11/07/22 Time: 1:30 address: [facility] specialty: PCP # visits: joint supervisor: no Wheelchair:no documented in this encounter Plan of Treatment Upcoming Encounters Date Type Department Care Team (Late st Contact Info) Description 04/15/2025 2:30 PM EST Office Visit [facility] OPTOMETRY [address] [place] [address] Yvonne Miller, OD [address] [place] [address] 04/27/2025 3:00 PM EST Office Visit [facility] CHC ADULT DENTAL [address] [place], [place] [phone] Zi Lozano DDS 230 [place] [address] 05/10/2025 1:30 PM EST Clinical Support [facility] MEDICINE [address] [place] [address] 05/16/2025 2:00 PM EST Telemedicine [facility] CHC MED & PEDS 505 [place], [place] [phone] Colette Diop, RN 505 [place] [address] documented as of this encounter Visit Diagnoses Not on filedocumented in this encounter Additional Health Concerns Assessment Noted Time PHQ-9 Depression Total Score: 11 022 1:16 PM EST documented as of this encounter Care Teams Advice Line Rn Relationship Specialty Start Date End Date Khloe Fonseca FNP PCP - General Family Medicine 02/05/22 12/25/22 Kristy Wilder MD 230 [place] [address] PCP - General Internal Medicine 12/26/22 Bradly Gonzalez MD [address] [place] [address] Vascular Surgery 07/17/22 Rk Smith 100 [facility] [address] [place] [address] Otolaryngology 01/14/25 Buck Hess DPM [address] [place] [address] [place] [address] Podiatry 01/14/25 Rosanne Mosley 03/28/25 Evita Hanna Transportation WorkerMedical Oncologist 11/04/24 [facility] [address] [place] [address] Physical Therapy 07/17/22 documented as of this encounter
--- OUTSIDE RECORDS SUMMARY | 2025-04-04 11:00 | XMS_ITS | Encounter Summary ---
Author Organization [employer] Address 75 [facility] 7t [place] [address] Care Team Providers Care Casting Technician Name Role Phone Kristy Wilder MD Primary Care Pro vider Bradly Gonzalez MD Unavailable Rk Smith Unavailable Buck Hess DPM Unavailable [phone] Rosanne Mosley Unavailable Reason for Visit * Reason Comments Med Refill Encounter Details Date Type Department Care Team (Late st Contact Info) Description 09/25/2023 Refill [facility] MEDICINE 230 [place], [place] [phone] Kristy Wilder MD 230 [place], [place] [phone] Primary insomnia Social History Tobacco Use Types [...] Description 04/15/2025 2:30 PM EST Office Visit [facility] OPTOMETRY 267 [place] [address] Yvonne Miller, OD 230 [place] [address] 04/27/2025 3:00 PM EST Office Visit [facility] ADULT DENTAL 505 [place] [address] Zi Lozano DDS 230 [place] [address] 05/10/2025 1:30 PM EST Clinical Support [facility] MEDICINE 230 [place] [address] 05/16/2025 2:00 PM EST Telemedicine [facility] MED & PEDS 505 [place] [address] Colette Diop, BRICE 505 [place] [address] documented as of this encounter Visit Diagnoses Diagnosis Primary insomnia Persistent disorder of initiating or maintaining sleep documented in this encounter Additional Health Concerns Assessment Noted Time PHQ-9 Depression Total Score: 16 023 11:20 AM EDT documented as of this encounter Care Teams Casting Technician Relationship Specialty Start Date End Date Kristy Wilder MD [address] [place] [address] PCP - General Internal Medicine 12/26/22 Bradly Gonzalez MD [address] [address] [place] [address] Vascular Surgery 07/17/22 Rk Smith 100 [facility] [address] [place] [address] Otolaryngology 01/14/25 Buck Hess DPM [address] [facility] [address] [place] [address] Podiatry 01/14/25 Rosanne Mosley 03/28/25 Evita Hanna Perianesthesia RnRhinestone Setter 11/04/24 [facility] CORE [address] [place] [address] Physical Therapy 07/17/22 documented as of this encounter
--- OUTSIDE RECORDS SUMMARY | 2025-04-04 11:00 | XMS_ITS | Encounter Summary ---
Author Organization [employer] Address 75 [facility] 7t [place] [address] Care Team Providers Care Finished Cloth Examiner Name Role Phone Kristy Wilder MD Primary Care Pro vider Bradly Gonzalez MD Unavailable Rk Smith Unavailable Buck Hess DPM Unavailable [phone] Rosanne Mosley Unavailable Reason for Visit * [...] (Late st Contact Info) Description 02/11/2023 Refill [facility] MEDICINE [address] [place] [phone] Kristy Wilder MD 230 [place], [place] [phone] Primary insomnia; Chronic low back pain, unspecified [...] Description 04/15/2025 2:30 PM EST Office Visit [facility] OPTOMETRY 267 [place] [address] Yvonne Miller, OD 230 [place] [address] 04/27/2025 3:00 PM EST Office Visit [facility] ADULT DENTAL 505 [place] [address] Zi Lozano DDS 230 [place] [address] 05/10/2025 1:30 PM EST Clinical Support [facility] MEDICINE 230 [place] [address] 05/16/2025 2:00 PM EST Telemedicine [facility] MED & PEDS 505 [place] [address] Colette Diop, RN 505 [place] [address] documented as of this encounter Visit Diagnoses Diagnosis Primary insomnia Persistent disorder of initiating or maintaining sleep Chronic low back pain, unspecified back pain laterality, unspecified whether sciatica present documented in this encounter Additional Health Concerns Assessment Noted Time PHQ-9 Depression Total Score: 11 022 1:16 PM EST documented as of this encounter Care Teams Finished Cloth Examiner Relationship Specialty Start Date End Date Kristy Wilder MD 230 [place] [address] PCP - General Internal Medicine 12/26/22 Bradly Gonzalez MD [address] [place] [address] Vascular Surgery 07/17/22 Rk Smith [address] [address] [place] [address] Otolaryngology 01/14/25 Buck Hess DPM [address] [facility] [address] [place] [address] Podiatry 01/14/25 Rosanne Mosley 03/28/25 Evita Hanna Engineering SurveyorChemical Processing Supervisor 11/04/24 [facility] CORE [address] [place] [address] Physical Therapy 07/17/22 documented as of this encounter
--- OUTSIDE RECORDS SUMMARY | 2025-04-04 11:00 | XMS_ITS | Encounter Summary ---
Author Organization [employer] Address 75 [facility] 7t [place] [address] Care Team Providers Care Supervisor Roller Printing Name Role Phone Khloe Fonseca Primary Care Provider Kristy Ring MD Primary Care Pro vider Bradly Gonzalez MD Unavailable Rk Smith Unavailable Buck Hess DPM Unavailable [phone] Rosanne Mosley Unavailable Reason for Visit * Reason Onset Date Comments pt1 10/16/2022 Encounter Details Date Type Department Care Team (Late st Contact Info) Description 10/16/2022 Telephone [facility] MEDICINE [address] [place] [address] Khloe Fonseca FNP pt1 Social History Tobacco [...] Nannette Whittaker - 10/24/2022 10:19 AM EDT Web Site Designer called and left voicemail for pt stating Pt1 Request was approved and she may call to schedule * Telephone Encounter - Nannette Whittaker - 10/24/2022 10:17 AM EDT Patient will recieve approval / denial letter via mail. PT-1 Request [id number] Pending - [facility] Pulmonology [address] [place] [address] Dr Holl[place] * Telephone Encounter - Eddie Sousa - 10/21/2022 10:14 AM EDT Tc from pt requesting status on PT1. Date: October 22, 2022 Time: 2:45 pm address:[address] [place] [address] specialty:Pulmonology Center # visits: civil engineer: no Wheelchair: no * Telephone Encounter - Marko Rodriguez - 10/16/2022 11:51 AM EDT Tc from pt requesting pt1 ride Date: october 22, 2022 Time: 2:45 pm address:[address] [place] [address] [place] [address] specialty:Pulmonology Center # visits: civil engineer: no Wheelchair: no documented in this encounter Plan of Treatment Upcoming Encounters Date Type Department Care Team (Late st Contact Info) Description 04/15/2025 2:30 PM EST Office Visit [facility] OPTOMETRY [address] [place] [address] Paul, Yvonne, OD 230 [place] [address] 04/27/2025 3:00 PM EST Office Visit [facility] CHC ADULT DENTAL [address] [place] [address] Zi Lozano, DDS 230 [place] [address] 05/10/2025 1:30 PM EST Clinical Support [facility] MEDICINE 230 [place] [address] 05/16/2025 2:00 PM EST Telemedicine [facility] CHC MED & PEDS [address] [place] [address] Colette Diop, RN [address] [place] [address] documented as of this encounter Visit Diagnoses Not on filedocumented in this encounter Additional Health Concerns Assessment Noted Time PHQ-9 Depression Total Score: 11 022 1:16 PM EST documented as of this encounter Care Teams Supervisor Roller Printing Relationship Specialty Start Date End Date Khloe Fonseca FNP PCP - General Family Medicine 02/05/22 12/25/22 Kristy Wilder MD 230 [place] [address] PCP - General Internal Medicine 12/26/22 Bradly Gonzalez MD [address] [facility] [address] [place] [address] Vascular Surgery 07/17/22 Rk Smith 100 [facility] 100 [place] [address] Otolaryngology 01/14/25 Buck Hess DPM [address] [place] [address] 250 [place] [address] Podiatry 01/14/25 Rosanne Mosley 03/28/25 Evita Hanna Chemical Dependency CounselorSand Caster Apprentice 11/04/24 [facility] CORE [address] [place] [address] Physical Therapy 07/17/22 documented as of this encounter
--- OUTSIDE RECORDS SUMMARY | 2025-04-04 11:00 | XMS_ITS | Encounter Summary ---
Author Organization [employer] Address 75 [facility] 7t [place] [address] Care Team Providers Care Photo Technician Name Role Phone Kristy Wilder MD Primary Care Pro vider Bradly Gonzalez MD Unavailable Rk Smith Unavailable Buck Hess DPM Unavailable [phone] Rosanne Mosley Unavailable Reason for Visit * Reason Comments Med Refill Encounter Details Date Type Department Care Team (Late st Contact Info) Description 02/25/2025 Refill [facility] MEDICINE [address] [place], [place] [phone] Kristy Wilder MD 230 [place], [place] [phone] Primary insomnia Social History Tobacco Use Types [...] Description 04/15/2025 2:30 PM EST Office Visit [facility] OPTOMETRY [address] [place] [address] PaulYvonne marlow, OD 230 [place] [address] 04/27/2025 3:00 PM EST Office Visit [facility] ADULT DENTAL [address] [place] [address] Zi Lozano DDS 230 [place] [address] 05/10/2025 1:30 PM EST Clinical Support [facility] MEDICINE 230 [place] [address] 05/16/2025 2:00 PM EST Telemedicine [facility] MED & PEDS [address] [place] [address] Colette Diop, BRICE 505 [place] [address] documented as of this encounter Visit Diagnoses Diagnosis Primary insomnia Persistent disorder of initiating or maintaining sleep documented in this encounter Additional Health Concerns Assessment Noted Time PHQ-9 Depression Total Score: 12 025 9:32 AM EDT documented as of this encounter Care Teams Photo Technician Relationship Specialty Start Date End Date Kristy Wilder MD [address] [place] [address] PCP - General Internal Medicine 12/26/22 Bradly Gonzalez MD [address] [place] [address] Vascular Surgery 07/17/22 Rk Smith 100 [facility] [address] [place] [address] Otolaryngology 01/14/25 Buck Hess DPM [address] [place] [address] [address] [place] [address] Podiatry 01/14/25 Rosanne Mosley 03/28/25 Evita Hanna BoatwrightPrint Cutter 11/04/[address] [address] Physical Therapy 07/17/22 documented as of this encounter
--- OUTSIDE RECORDS SUMMARY | 2025-04-04 11:00 | XMS_ITS | Encounter Summary ---
Author Organization [employer] Address 75 [facility] 7t [place] [address] Care Team Providers Care Statue Carver Name Role Phone Kristy Wilder MD Primary Care Pro vider Bradly Gonzalez MD Unavailable Rk Smith Unavailable Buck Hess DPM Unavailable [phone] Rosanne Mosley Unavailable Reason for Visit * Reason Comments Med Refill Encounter Details Date Type Department Care Team (Late st Contact Info) Description 05/15/2023 Refill [facility] MEDICINE 230 [place], [place] [phone] Eevlina Freeman MD 230 [place], [place] [phone] Social History Tobacco Use Types Packs/Day Years [...] Description 04/15/2025 2:30 PM EST Office Visit [facility] OPTOMETRY [address] [place] [address] Yvonne Miller, OD 230 [place] [address] 04/27/2025 3:00 PM EST Office Visit [facility] ADULT DENTAL 505 [place] [address] Zi Lozano DDS [address] [place] [address] 05/10/2025 1:30 PM EST Clinical Support [facility] MEDICINE 230 [place] [address] 05/16/2025 2:00 PM EST Telemedicine [facility] MED & PEDS 505 [place] [address] Colette Diop, RN 505 [place] [address] documented as of this encounter Visit Diagnoses Not on filedocumented in this encounter Additional Health Concerns Assessment Noted Time PHQ-9 Depression Total Score: 16 023 11:20 AM EDT documented as of this encounter Care Teams Statue Carver Relationship Specialty Start Date End Date Kristy Wilder MD [address] [place] [address] [place] [address] PCP - General Internal Medicine 12/26/22 Bradly Gonzalez MD [address] [place] [address] Vascular Surgery 07/17/22 Rk Smith 100 [facility] [address] [place] [address] Otolaryngology 01/14/25 Buck Hess DPM 175 [facility] [address] [place] [address] Podiatry 01/14/25 Rosanne Mosley 03/28/25 Evita Hanna Excellence ConsultantForeclosure Paralegal 11/04/24 [facility] [address] [place] [phone] Physical Therapy 07/17/22 documented as of this encounter
--- OUTSIDE RECORDS SUMMARY | 2025-04-04 11:00 | XMS_ITS | Encounter Summary ---
Author Organization [employer] Address 75 [facility] 7t h Floor [place] [id number] Care Team Providers Care Knot Tying Operator Name Role Phone Khloe Fonseca STUDIO PRODUCER Primary Care Provider Kristy Ring MD Primary Care Pro vider Bradly Gonzalez MD Unavailable Rk Smith Unavailable Buck Hess DPM Unavailable [phone] Rosanne Mosley Unavailable Reason for Visit * Reason Onset Date Comments Med Refill [facility] order 08/25/2022 Order # [id number] Encounter Details Date Type Department Care Team (Late st Contact Info) Description 08/25/2022 Refill [facility] MEDICINE 230 [place] [address] Khloe Fonseca FNP Type 2 diabetes mellitus without complication, without long-term current use of insulin ([facility]) Social History Tobacco Use Types Packs/Day [...] Description 04/15/2025 2:30 PM EST Office Visit [facility] OPTOMETRY [address] [place] [address] PaulYvonne marlow, OD 230 [place] [address] 04/27/2025 3:00 PM EST Office Visit [facility] ADULT D[facility]AL 505 [place], [place] [phone] Zi Lozano DDS 230 [place] [address] 05/10/2025 1:30 PM EST Clinical Support [facility] MEDICINE 230 [place] [address] 05/16/2025 2:00 PM EST Telemedicine [facility] MED & PEDS [address] [place], [place] [phone] Colette Diop RN 505 [place], [place] [phone] documented as of this encounter Visit Diagnoses Diagnosis Type 2 diabetes mellitus without complication, without long-term current use of insulin (HCC) documented in this encounter Additional Health Concerns Assessment Noted Time PHQ-9 Depression Total Score: 11 022 1:16 PM EST documented as of this encounter Care Teams Knot Tying Operator Relationship Specialty Start Date End Date Khloe Fonseca FNP PCP - General Family Medicine 02/05/22 12/25/22 Kristy Wilder MD 230 [place] [address] PCP - General Internal Medicine 12/26/22 Bradly Gonzalez MD [address] [place] [address] Vascular Surgery 07/17/22 Rk Smith 100 [address] [place] [address] Otolaryngology 01/14/25 Buck Hess DPM [address] [place] [address] [address] [place] [address] Podiatry 01/14/25 Rosanne Mosley 03/28/25 Evita Hanna Foot SetterWater Attendant 11/04/24 [facility] [address] [place] [address] Physical Therapy 07/17/22 documented as of this encounter
--- OUTSIDE RECORDS SUMMARY | 2025-04-04 11:00 | XMS_ITS | Clinical Summary ---
Author Organization [employer] Address 75 [facility] 7t [place] [address] Care Team Providers Care Air Carrier Operations Inspector Name Role Phone Kristy Wilder MD Primary Care Pro vider Bradly Gonzalez MD Unavailable Rk Smith Unavailable Buck Hess DPM Unavailable [phone] Rosanne Mosley Unavailable Allergies Active Allergy Reactions Criticality Noted Date Comments Icwcgqraf-Oa-Fpwenuxanuzvb Unknown 3 Hydromorphone Rash Low 06/28/2020 Other [...] MORNING 90 tablet 1 Active nystatin (Mycostatin) 680184 UNIT/GM powder Apply topically if needed each [...] AND AT BEDTIME NEEDED 180 capsule 1 025 Active busPIRone (Buspar) 10 MG tablet TAKE 1 TABLET BY MOUTH TWICE DAILY 60 tablet 2 025 Active levothyroxine (Synthroid, Levoxyl) 75 MCG tabletIndications :Acquired hypothyroidism TAKE 1 TABLET BY MOUTH EVERY MORNING BEFORE BREAKFAST 90 tablet 025 Active docusate sodium (Colace) 100 MG [...] bottle 60 tablet 1 025 2024 Discontinued Active Problems Problem Noted [...] 8:00 PM EDT): Encouraged pt to bring [employer] application for [employer] to Forms team. Pt has difficulty breathing r/t lung cancer diagnosis Pt will contact [employer]ECUTIVE [employer] company about increasing hours F/u PRN Therapeutic opioid [...] was grade 3. status post nephrectomy, at [facility] in January. 9.5 cm clear [...] organization. Date Type Department Care Team Description 04/04/2025 Refill [facility] MEDICINE [address] [place] [address] Kristy Wilder MD 03/29/2025 Patient Outreach [facility] MED & PEDS 505 [place] [address] Kristy Wilder MD Care Coordination (CP Care Coordination chart review ) 03/28/2025 Patient Outreach [facility] MEDICINE [address] [place] [address] Kristy Wilder MD 03/22/2025 Refill [facility] MED[facility] [address] [place] [address] Kristy Wilder MD Acquired hypothyroidism 03/20/2025 Refill [facility] MED[facility] [address] [place] [address] Kristy Wilder MD 03/15/2025 Telephone [facility] MED[facility] [address] [place] [address] Kristy Wilder MD Nurse Triage 03/11/2025 Refill [facility] MEDICINE [address] [place] [address] Kristy Wilder MD Therapeutic opioid induced constipation 03/08/2025 10:45 AM EDT Office Visit [facility] MEDICINE [address] [place] [address] Kristy Wilder MD Varicose veins of lower extremity, unspecified laterality, unspecified whether complicated (Primary Dx); Encounter for vaccination; Encounter for immunization; Essential hypertension; Varicose veins of both lower extremities, unspecified whether complicated; Type 2 diabetes mellitus with other specified complication, without long-term current use of insulin ([facility]); Health care maintenance; Depressive disorder; Memory loss 03/08/2025 Travel 03/07/2025 Telephone [facility] [address] [place] [address] Kristy Wilder MD chart prep 03/02/[address] [address] Kristy Wilder MD Primary hypertension; Mixed hyperlipidemia 03/01/2025 10:00 AM EDT Office Visit [facility] ADULT DENTAL [address] [place] [address] Zi Lozano DDS 02/28/2025 Patient Outreach [address] [address] Kristy Wilder MD Pre-visit Planning (SDOH screening was completed on 09/20/2024) 02/28/[address] [address] Kristy Wilder MD Primary insomnia 02/25/[address] [address] Kristy Wilder MD Primary insomnia 02/22/2025 2:00 PM EDT Clinical Support [facility] [address] [place] [address] Colette Diop RN Back pain, unspecified back location, unspecified back pain laterality, unspecified chronicity 02/22/2025 Refill [facility] [address] [place] [address] Colette Diop RN Back pain, unspecified back location, unspecified back pain laterality, unspecified chronicity 02/22/2025 Travel 02/09/2025 Refill [facility] MED[facility] [address] [place] [address] Kristy Wilder MD 01/31/2025 Refill [facility] MED[facility] [address] [place] [address] Kristy Wilder MD Primary insomnia 01/17/2025 Refill [facility] MED & PEDS [address] [place] [address] Kristy Wilder MD 01/14/2025 9:45 AM EDT Office Visit [facility] MEDICINE [address] [place] [address] Kristy Wilder MD Essential hypertension (Primary Dx); Type 2 diabetes mellitus with other specified complication, without long-term current use of insulin (CMS/HCC); Obesity, unspecified class, unspecified obesity type, unspecified whether serious comorbidity present; Health care maintenance; Malignant neoplasm metastatic to lung, unspecified laterality (CMS/HCC); Renal cell carcinoma of right kidney (CMS/HCC); Anxiety; Depressive disorder; Transaminitis 01/14/2025 Travel 01/13/2025 Telephone [facility] [address] [place] [address] Kristy Wilder MD chart prep 01/11/2025 Orders Only [facility] [address] [place] [address] Kristy Wilder MD 01/10/2025 Telephone [facility] [address] [place] [address] Kristy Wilder MD requesting call back 01/10/2025 Telephone [facility] [address] [place] [address] Kristy Wilder MD Call Back Request 01/05/2025 Orders Only [facility] External Provider, [facility] from Last 3 Months Immunizations Immunization Administration [...] Description 04/15/2025 2:30 PM EST Office Visit [facility] OPTOMETRY [address] [place] [address] Paul, Yvonne, OD 230 [place] [address] 04/27/2025 3:00 PM EST Office Visit [facility] ADULT DENTAL [address] [place] [address] Zi Lozano, DDS 230 [place] [address] 05/10/2025 1:30 PM EST Clinical Support [facility] MEDICINE [address] [place] [address] 05/16/2025 2:00 PM EST Telemedicine [facility] 505 [place] [address] Colette Diop, BRICE 505 [place] [address] Health Maintenance Due Date Last Done Comments [...] Screening 03/08/2026 03/08/2025 Eye Exam 03/17/2026 03/17/2024, 1002/2024, 03/17/2024, Additional history exists Dental X-Ray: Full [...] TOMOSYNTHESIS BILATERAL Routine 12/08/2024 1:55 PM EDT PAP/HPV Routine 11/01/2020 COLONOSCOPY Routine 11/23/2018 from [...] procedure / Unknown 02/22/2025 1:10 PM EDT Colette Burch RN - 02/22/2025 1:10 PM EDT . Internal Pass Control Lot# [id number] Exp: 04-08-26 us Kristy Mosley MD POINT OF CARE NERY T ENTER/EDIT ORDERABLES Final Result * CT Abdomen Pelvis w/ Contrast (01/05/2025 2:21 PM EDT) Anatomical Region Laterality Modality Body, Pelvis, Abdomen Computed T omography 01/05/2025 2:21 PM EDT Narrative 01/05/2025 3:12 PM EDT [address] [address] [place] Scan Report Signed Patient: Krys Gillis MR# : [id number] : 1965 Acct:[id number] Age/Sex: 59 / F ADM Date: 01/05/25 Loc: HO.CT Attending Dr: aSmmie Leon NP Ordering Physician: Sammie Leon NP Date of Service: 01/05/25 Procedure(s): CT abdomen pelvis w IV con Accession Number(s): [id number] cc: Justina Erickson MD; Kristy Wilder MD; Sammie Leon NP Report Number: [id number]: Total DLP = 905.00 mGy-cm EXAMINATION: CT [...] 01/05/25 1509 DD/ 1421 TD/TT: 01/05/25 1454 Photographic Colorist: Procedure Note Donotuseinterpreter, Image - 01/05/[address] [place] [address] [address] Scan Report Signed Patient: Krys Gillis# : [id number] : 1965Acct:[id number] Age/Sex: 59 / FADM Date: 01/05/25 Loc: HO.CT Attending Dr: Sammie Leon NP Ordering Physician: Sammie Leon NP Date of Service: 01/05/25 Procedure(s): CT abdomen pelvis w IV con Accession Number(s): [id number] cc: Justina Erickson MD; Kristy Wilder MD; Mark Leon Report Number: [id number]: Total DLP = 905.00 mGy-cm EXAMINATION: CT [...] 01/05/25 1509 DD/ 1421 TD/TT: 01/05/25 1454 Photographic Colorist: [facility] External Provider IMG CT PROCEDURES Final Result * CT Chest w/ Contrast (01/05/2025 2:21 PM EDT) Anatomical Region Laterality Modality Body, Chest Computed Tomogra phy 01/05/2025 2:21 PM EDT Narrative 01/05/2025 3:12 PM EDT [place] [address] [address] Scan Report Signed Patient: Krys Gillis MR# : [id number] : 1965 Acct:[id number] Age/Sex: 59 / F ADM Date: 01/05/25 Loc: HO.CT Attending Dr: Sammie Leon NP Ordering Physician: Sammie Leon NP Date of Service: 01/05/25 Procedure(s): CT chest w IV con Accession Number(s): [id number] cc: Justina Erickson MD; Kristy Wilder MD; Sammie Leon INSPECTOR PAP[employer]ODUCTS Report Number: [id number]: Total DLP = 905.00 mGy-cm EXAMINATION: CT [...] 01/05/25 1509 DD/ 1421 TD/TT: 01/05/25 1454 Photographic Colorist: Procedure Note Donotuseinterpreter, Image - 01/05/[address] [place] [address] [address] Scan Report Signed Patient: Krys Gillis# : [id number] : 1965Acct:[id number] Age/Sex: 59 / FADM Date: 01/05/25 Loc: HO.CT Attending Dr: Sammie Leon NP Ordering Physician: Sammie Leon NP Date of Service: 01/05/25 Procedure(s): CT chest w IV con Accession Number(s): [id number] cc: Justina Erickson MD; Kristy Wilder MD; Mark Leon Report Number: [id number]: Total DLP = 905.00 mGy-cm EXAMINATION: CT [...] 01/05/25 1509 DD/ 1421 TD/TT: 01/05/25 1454 Photographic Colorist: [facility] External Provider IMG CT PROCEDURES Final Result * Albumin, Random Urine W/Creatinine (12/22/2024 9:56 AM EDT) Creatinine, Urine 257.42 mg/dL [facility] Microalbumin Urine 23.0 mg/L [facility] Microalbum Creatinine Ratio Ur 8.9 <30 ug/mg cr [facility] Comment:Albumin/Creatinine R atio Reference Ranges: Normal: < 30 ug/mg creatinine Microalbuminuria: 30 - 300 ug/mg creatinineClinical Albuminuria: > 300 ug/mg creatinine Urine (Urine, Random) 12/22/2024 9:56 AM EDT 12/22/2024 11:08 AM EDT Kristy Mosley MD LAB URINE ORDERAB LES Final Result [facility] [address] [place] [phone] * Hepatitis C Antibody with Reflex to HCV, RNA, Quantitative, Real-Time PCR (12/22/2024 9:56 AM EDT) Hepatitis C Antibody Nonreactive Nonreactive [facility] Comment:Antibodies to HCV no t detected; does not exclude early acuteHCV infection. Blood Venous blood specimen / Unknown 12/22/2024 9:56 AM EDT 12/22/2024 11:07 AM EDT us Kristy Mosley MD LAB BLOOD ORDERAB LES Final Result Performing Organization Address City/[facility]/ZIP Co de Phone Number [facility] [address] [place] [address] [phone] * HIV-1/2 Antigen and Antibodies, Fourth Generation, with Reflexes (12/22/2024 9:56 AM EDT) HIV AB/AG Nonreactive Nonreactive [facility] Comment:HIV-1 p24 Ag and/or HIV-1/HIV-2 Ab not detected.A test result that is nonreactive does not exclude thepossibility of exposure to or infection with HIV-1 and/orHIV-2. Nonreactive results in this assay for individualswith prior exposure to HIV-1 and/or HIV-2 may be due toantigen and antibody levels that are below the limit ofdetection of this assay.The [employer] HIV Ag/Ab Combo assay result andsupplemental assay results should be interpreted inconjunction with the patient's clinical presentation,history and other laboratory results. If the results areinconsistent with clinical evidence, additional testing issuggested to confirm the result. Blood Venous blood specimen / Unknown 12/22/2024 9:56 AM EDT 12/22/2024 11:07 AM EDT us Kristy Mosley MD LAB BLOOD ORDERAB LES Final Result Performing Organization Address City/[facility]/ZIP Co de Phone Number [facility] [address] [place] [address] [phone] * (ABNORMAL) Hemoglobin A1c (12/22/2024 9:56 AM EDT) Hemoglobin A1c 6.7(H) <6.0 % [facility] Comment:Hemoglobin A1C Refer ence Range Adults: 4.8 - 6.0 % Non diabetic: < 6.0 % Goal: < 7.0 %Additional Action Suggested: > 8.0 %Note: Hemoglobin A1c results are invalid for patients with abnormal amounts of HbF. Blood transfusions may impact the HbA1c concentration in the patient sample. Estimated Average Glucose 146 mg/dL [facility] Comment:eAG = Estimated ave rage glucose which is %A1C expressed asaverage glucose, using the formula of the H9M-FvrnylkOlgehlo Glucose study (ADAG), Diabetes Care, Vol.31,#8,Jan. 2007 Blood Venous blood specimen / Unknown 12/22/2024 9:56 AM EDT 12/22/2024 11:09 AM EDT us Kristy Mosley MD LAB BLOOD ORDERAB LES Final Result [facility] [address] [place] [phone] * (ABNORMAL) Lipid Panel, Standard (12/22/2024 9:56 AM EDT) Triglycerides 100 <150 mg/dL [facility] Comment:Desirable Triglyceri de: less than 150 mg/dLBorderline High Triglyceride 150-199 mg/dLHigh Triglyceride: 200-499 mg/dLVery High Triglyceride: greater than or equal to 5OO mg/dL Cholesterol 277(H) <200 mg/dL [facility] Comment:Desirable Cholestero l: less than 200 mg/dLBorderline High Cholesterol: 200-239 mg/dLHigh Cholesterol: greater than 239 mg/dL LDL Cholesterol Calculated 208(H) <100 mg/dL [facility] Comment:Desirable LDL: less than 100 mg/dLNear Optimal/Above Optimal LDL: 110- 129 mg/dLBorderline High LDL: 130-159 mg/dLHigh LDL: 160-189 mg/dLVery High LDL: greater than or equal to 190 mg/dL HDL Cholesterol 49 >40 mg/dL [facility] Comment:Desirable HDL: great er than 40 mg/dL Note: This HDL assay may give artificially low results in patients with liver disease. Blood Venous blood specimen / Unknown 12/22/2024 9:56 AM EDT 12/22/2024 11:07 AM EDT us Kristy Mosley MD LAB BLOOD ORDERAB LES Final Result [facility] [address] [facility] [place] [address] [phone] * BI Mammogram Screening Tomosynthesis Bilateral (12/08/2024 1:55 PM EDT) Anatomical Region Laterality Modality Breast Bilateral Mammography 12/08/2024 1:55 PM EDT Narrative 12/19/2024 9:17 PM EDT [address] [place] [address] Mammography Report Signed Patient: Krys Gillis MR# : [id number] : 1965 Acct:[id number] Age/Sex: 59 / F ADM Date: 12/08/24 Loc: HO.MAMMO Attending Dr: Kristy Mosley MD Ordering Physician: Kristy Wilder MD Re sults: 1Negative Date of Service: 12/08/24 Follow Up: 1 Year From Orig inal Mammogram Procedure(s): MM tomosynthesis screening BI Accession Number(s): [id number] cc: Kristy Wilder MD EXAMINATION: MM SCREENING [...] OV> 12/19/242113 DD/ 1355 TD/TT: 12/08/24 1410 Photographic Colorist: Procedure Note Donotuseinterpreter, Image - 12/19/2024 [facility] [address] [place] [address] Mammography Report Signed Patient: Krys GillisMR# : [id number] : 1965Acct:[id number] Age/Sex: 59 / FADM Date: 12/08/24 Loc: HO.MAMMO Attending Dr: Kristy Mosley MD Ordering Physician: Kristy Wilder sults: 1Negative Date of Service: 12/08/24Follow Up: 1 Year From Orig inal Mammogram Procedure(s): MM tomosynthesis screening BI Accession Number(s): [id number] cc: Kristy Wilder MD EXAMINATION: MM SCREENING [...] 12/19/24 2114 DD/ 1355 TD/TT: 12/08/24 1410 Photographic Colorist: Kristy Mosley MD IMG BI PROCEDURES Edited Result - Final * Pap Smear (11/01/2020) Pap smear Performed Historical Provider HEALTH MAINTENANCE Final Result * Colonoscopy (11/23/2018) Colonoscopy Performed Historical Provider HEALTH MAINTENANCE Edited Result - Final from Last 3 Months or Most Recently Relevant to Health Maintenance Insurance [facility] C3 DENTAL-[facility] MEDICAID STAND ADULT Care Teams Air Carrier Operations Inspector Relationship Specialty Start Date End Date Kristy Wilder MD [address] [place] [address] PCP - General Internal Medicine 12/26/22 Bradly Gonzalez MD [address] [place] [address] [address] [place] [address] Vascular Surgery 07/17/22 Rk Smith 100 [facility] [address] [place] [address] Otolaryngology 01/14/25 Buck Hess DPM 175 [facility] [address] [place] [address] Podiatry 01/14/25 Rosanne Mosley 03/28/25 Evita Hanna Inside Solar Sales ConsultantFrench Binder 11/04/[address] [address] Physical Therapy 07/17/22
--- OUTSIDE RECORDS SUMMARY | 2025-04-04 11:00 | XMS_ITS | Encounter Summary ---
Author Organization [employer] Address 75 [facility] 7 [place] [address] Care Team Providers Care Db2 Systems Programmer Name Role Phone Kristy Wilder MD Primary Care Pro vider Bradly Gonzalez MD Unavailable Rk Smith Unavailable Buck Hess DPM Unavailable [phone] Rosanne Mosley Unavailable Reason for Visit * Reason Onset Date Comments PT-1 08/03/2024 Encounter Details Date Type Department Care Team ([facility] st Contact Info) Description 08/03/2024 Telephone [facility] MEDICINE [address] [place], [place] [phone] Kristy Wilder MD [address] [place], [place] [phone] PT-1 Social History Tobacco Use Types Packs/Day [...] Y/N: Yes Provider name or facility name: [facility] Facility Address: [address] [place] [address] Escort needed: Y/N: No Do you have a wheelchair: Y/N: No If yes- Manual or electric: N/A Visits: Twice monthly documented in this encounter Plan of Treatment Upcoming Encounters Date Type Department Care Team (Late st Contact Info) Description 04/15/2025 2:30 PM EST Office Visit [facility] OPTOMETRY [address] [place] [address] Paul, Yvonne, OD [address] [place] [address] 04/27/2025 3:00 PM EST Office Visit [facility] CHC ADULT DENTAL [address] [place] [address] iZ Lozano, DDS [address] [place] [address] 05/10/2025 1:30 PM EST Clinical Support [facility] MEDICINE [address] [place] [address] 05/16/2025 2:00 PM EST Telemedicine [facility] CHC MED & PEDS [address] [place] [address] Colette Diop, RN [address] [place] [address] documented as of this encounter Visit Diagnoses Not on filedocumented in this encounter Additional Health Concerns Assessment Noted Time PHQ-9 Depression Total Score: 4 10/31/19 1:38 PM EDT documented as of this encounter Care Teams Db2 Systems Programmer Relationship Specialty Start Date End Date Kristy Wilder MD [address] [place] [address] PCP - General Internal Medicine 12/26/22 Bradly Gonzalez MD [address] [place] [address] Drive [address] [place] [address] Vascular Surgery 07/17/22 Rk Smith 100 [facility] [address] [place] [address] Otolaryngology 01/14/25 Buck Hess DPM [address] [place] [address] [address] [place] [address] Podiatry 01/14/25 Rosanne Mosley 03/28/25 Evita Hanna Sorter PricerIce Grinder 11/04/24 [facility] CORE [address] [place] [address] Physical Therapy 07/17/22 documented as of this encounter
--- OUTSIDE RECORDS SUMMARY | 2025-04-04 11:00 | XMS_ITS | Encounter Summary ---
Author Organization [employer] Address 75 [facility] 7t [place] [address] Care Team Providers Care Agent Broker Name Role Phone Kristy Wilder MD Primary Care Pro vider Bradly Gonzalez MD Unavailable Rk Smith Unavailable Buck Hess DPM Unavailable [phone] Rosanne Mosley Unavailable Reason for Visit * Reason Comments Med Refill Encounter Details Date Type Department Care Team (Late st Contact Info) Description 09/10/2023 Refill [facility] MEDICINE [address] [place], [place] [phone] Kristy Wilder MD [address] [place], [place] [phone] Type 2 diabetes mellitus with diabetic polyneuropathy, without long-term current use of insulin ([facility]) Social History Tobacco Use Types [...] Office Visit [facility] OPTOMETRY [address] [place] [address] Yvonne Miller, OD [address] [place] [address] 04/27/2025 3:00 PM EST Office Visit [facility] ADULT DENTAL [address] [place] [address] Zi Lozano DDS [address] [place] [address] 05/10/2025 1:30 PM EST Clinical Support [facility] MEDICINE [address] [place] [address] 05/16/2025 2:00 PM EST Telemedicine [facility] MED & PEDS [address] [place] [address] Colette Diop, RN [address] [place] [address] documented as of this encounter Visit Diagnoses Diagnosis Type 2 diabetes mellitus with diabetic polyneuropathy, without long-term current use of insulin (HCC) documented in this encounter Additional Health Concerns Assessment Noted Time PHQ-9 Depression Total Score: 16 023 11:20 AM EDT documented as of this encounter Care Teams Agent Broker Relationship Specialty Start Date End Date Kristy Wilder MD [address] [place] [address] PCP - General Internal Medicine 12/26/22 Bradly Gonzalez MD [address] [place] [address] Vascular Surgery 07/17/22 Rk Smith [address] [place] [address] Otolaryngology 01/14/25 Buck Hess DPM 175 [facility] [address] [place] [address] Podiatry 01/14/25 Rosanne Mosley 03/28/25 Evita Hanna Aviation Maintenance InstructorSupervisor Sample Preparation 11/04/[address] [address] Physical Therapy 07/17/22 documented as of this encounter
--- OUTSIDE RECORDS SUMMARY | 2025-04-04 11:00 | XMS_ITS | Encounter Summary ---
Author Organization [employer] Address 75 [facility] 7t [place] [address] Care Team Providers Care Sales Team Manager Name Role Phone Khloe Fonseca NURSE MANAGER Primary Care Provider Kristy Ring MD Primary Care Pro vider Bradly Gonzalez MD Unavailable Rk Smith Unavailable Buck Hess DPM Unavailable [phone] Rosanne Mosley Unavailable Reason for Visit * Reason Onset Date Comments OTHER 12/24/2022 Encounter Details Date Type Department Care Team (Late st Contact Info) Description 12/24/2022 Telephone [facility] MEDICINE [address] [place] [phone] Khloe Fonseca FNP OTHER Social History Tobacco [...] To clarify, please contact pt sister at [phone] documented in this encounter Plan of Treatment Upcoming Encounters Date Type Department Care Team (Late st Contact Info) Description 04/15/2025 2:30 PM EST Office Visit [facility] OPTOMETRY [address] [place] [address] PaulYvonne marlow, OD [address] [place] [address] 04/27/2025 3:00 PM EST Office Visit [facility] ADULT DENTAL [address] [place] [address] Zi Lozano DDS [address] [place] [address] 05/10/2025 1:30 PM EST Clinical Support [facility] MEDICINE [address] [place] [address] 05/16/2025 2:00 PM EST Telemedicine [facility] MED & PEDS [address] [place] [address] Colette Diop, BRICE 505 [place] [address] documented as of this encounter Visit Diagnoses Not on filedocumented in this encounter Additional Health Concerns Assessment Noted Time PHQ-9 Depression Total Score: 11 022 1:16 PM EST documented as of this encounter Care Teams Sales Team Manager Relationship Specialty Start Date End Date Khloe Fonseca FNP PCP - General Family Medicine 02/05/22 12/25/22 Kristy Wilder MD 230 [place] [address] PCP - General Internal Medicine 12/26/22 Bradly Gonzalez MD [address] [place] [address] Vascular Surgery 07/17/22 Rk Smith 100 [facility] [address] [place] [address] Otolaryngology 01/14/25 Buck Hess DPM [address] [place] [address] Podiatry 01/14/25 Rosanne Mosley 03/28/25 Evita Hanna Job DeveloperNews Anchor 11/04/[address] [address] Physical Therapy 07/17/22 documented as of this encounter
--- OUTSIDE RECORDS SUMMARY | 2025-04-04 11:00 | XMS_ITS | Encounter Summary ---
Author Organization [employer] Address 75 [facility] 7t [place] [address] Care Team Providers Care Labor Relations Supervisor Name Role Phone Kristy Wilder MD Primary Care Pro vider Bradly Gonzalez MD Unavailable Rk Smith Unavailable Buck Hess DPM Unavailable [phone] Rosanne Mosley Unavailable Reason for Visit * Reason Onset Date Comments Reschedule 07/07/2023 Encounter Details Date Type Department Care Team ([facility] st Contact Info) Description 07/07/2023 Telephone [facility] MEDICINE [address] [place], [place] [phone] Kristy Wilder MD [address] [place], [place] [phone] Reschedule Social History Tobacco Use Types Packs/Day [...] Tc from pt requesting to r/s 07/25 TAPPER SUPERVISOR appointment due to pt having 2 appointments scheduled same day and will be doing chemo. Please contact pt at [phone] (Welsh) documented in this encounter Plan of Treatment Upcoming Encounters Date Type Department Care Team (Late st Contact Info) Description 04/15/2025 2:30 PM EST Office Visit [facility] OPTOMETRY [address] [place] [address] Paul, Yvonne, OD 230 [place] [address] 04/27/2025 3:00 PM EST Office Visit [facility] ADULT DENTAL [address] [place] [address] Zi Lozano DDS 230 [place] [address] 05/10/2025 1:30 PM EST Clinical Support [facility] MEDICINE [address] [place] [address] 05/16/2025 2:00 PM EST Telemedicine [facility] MED & PEDS [address] [place] [address] Colette Diop, BRICE [address] [place] [address] documented as of this encounter Visit Diagnoses Not on filedocumented in this encounter Additional Health Concerns Assessment Noted Time PHQ-9 Depression Total Score: 16 023 11:20 AM EDT documented as of this encounter Care Teams Labor Relations Supervisor Relationship Specialty Start Date End Date Kristy Wilder MD [address] [place] [address] PCP - General Internal Medicine 12/26/22 Bradly Gonzalez MD [address] [place] [address] Vascular Surgery 07/17/22 Rk Smith 100 [facility] [address] [place] [address] Otolaryngology 01/14/25 Buck Hess DPM 175 [facility] [address] [place] [address] Podiatry 01/14/25 Rosanne Mosley 03/28/25 Evita Hanna Bleach Boiler PackerFitter'S Assistant 11/04/[address] [address] Physical Therapy 07/17/22 documented as of this encounter
--- OUTSIDE RECORDS SUMMARY | 2025-04-04 11:00 | XMS_ITS | Clinical Summary ---
Author Organization [facility] Address [address] [place] [address] Phone Care Team Providers Care Setter Induction Heating Equipment Name Role Phone Physician, No Pcp Primary [...] EDT - 03/30/2025 1:41 PM EDT Emergency [facility] Emergency [address] [place] [phone] Zoie Florentino MD Wyman, Tim, MD Zaidi, MD Tonja Zurita, MD Bharath Scott, MD Isaac Ewing, MD Juana Willis, MD Rufina Betts Mathew, MD Medication overdose, intentional self-harm, initial encounter ([facility] V24, [facility] V28) (Primary Dx) [facility] from Last 3 Months Medical History Medical History Date Comments Diabetes mellitus ([facility] [place]24, [facility] V28) Hypertension Social History Tobacco Use Types [...] EDT from Last 3 Months Results * ECG-Annotated (03/31/2025) us Provider Onbase ECG ORDERABLES Final Result * ECG 12 lead (03/30/2025 12:59 PM EDT) Ventricular Rate ECG 60 BPM GEMUSE Atrial Rate 60 BPM GEMUSE P-R Interval 198 ms GEMUSE QRS Duration 90 ms GEMUSE Q-T Interval 434 ms GEMUSE QTc 434 ms GEMUSE P Wave Daisy 31 degrees GEMUSE R Daisy 38 degrees GEMUSE T Daisy 47 degrees GEMUSE ECG Interpretation Normal sinus [...] resultswithin the time period is included. Pathologist [facility] Glucose POCT 85 70 - 100 mg/dL 03/29/2025 8:30 AM EDT [facility] Blood Capillary blood specimen / Unknown 03/29/2025 8:22 AM EDT 03/29/2025 8:31 AM EDT Everardo Gray MD LAB POINT OF CARE TEST DOCKED DEVICE UNSOLICITED RESULTS Final Result Performing Organization Address City/[facility]/ZIP Co de Phone Number [facility] [address] [place] [address], [place] [phone] * Activated Partial Thromboplastin Time - STAT (03/26/2025 6:31 PM EDT) [facility] aPTT 32.6 24.1 - 39.3 sec LAB COAGULATION METHOD 03/26/2025 7:16 PM EDT [facility] Blood Venous blood specimen / Unknown Venipuncture / Unknown 03/26/2025 6:31 PM EDT 03/26/2025 6:53 PM EDT Ayden Vera MD LAB BLOOD ORDERABLES Shelli l Result Performing Organization Address City/[facility]/ZIP Co de Phone Number [facility] [address] [place] [address], [place] [phone] * Prothrombin Time with INR - STAT (03/26/2025 6:31 PM EDT) [facility] Protime 12.3 10.6 - 13.9 sec LAB COAGULATION METHOD 03/26/2025 7:16 PM EDT [facility] INR 1.0 LAB COAGULATION METHOD 03/26/2025 7:16 PM EDT [facility] Blood Venous blood specimen / Unknown Venipuncture / Unknown 03/26/2025 6:31 PM EDT 03/26/2025 6:53 PM EDT Aydne Vera MD LAB BLOOD ORDERABLES Shelli l Result [facility] [address] [place] [address], [place] [phone] * (ABNORMAL) Drug abuse screen 8a panel, urine (03/26/2025 9:34 AM EDT) [facility] Amphetamine Screen, Ur Negative Negative LAB CHEMISTRY METHOD 10:50 AM EDT [facility] Comment:Certain OTC medicati ons containing ephedrine, phenylephrine, pseudoephedrine and phenylpropanolamine can cause false positive results. Barbiturate Screen, Ur Negative Negative LAB CHEMISTRY METHOD 10:50 AM EDT [facility] Benzodiazepine Screen, Ur Positive(A ) Negative LAB CHEMISTRY METHOD 10:50 AM T [facility] Cocaine Screen, Ur Negative Negative LAB CHEMISTRY METHOD 10:50 AM T [facility] Opiate Screen, Ur Negative Negative LAB CHEMISTRY METHOD 10:50 AM [facility] Cannabinoid (THC) Screen, Ur Negative Negative LAB CHEMISTRY METHOD 10:50 AM [facility] Comment:Specimens from patie nts taking pantoprazole sodium (Protonix) have been shown to produce false positive results. Oxycodone Screen, Ur Negative Negative LAB CHEMISTRY METHOD 10:50 AM [facility] Fentanyl, Ur Negative Negative LAB CHEMISTRY METHOD 10:50 AM [facility] Urine Urine specimen obtained by clean catch procedure / Unknown Non-blood Collection / Unknown 03/26/2025 9:34 AM EDT 03/26/2025 10:15 AM EDT Narrative [facility] - 03/26/2025 10:50 AM EDT [...] MD LAB URINE ORDERABLES Final Res ult [facility] [address] [place] [address], [place] [phone] * Buprenorphine screen, urine (03/26/2025 9:34 AM EDT) Buprenorphine Screen Urine Negative Negative LAB CHEMISTRY METHOD 03/26/2025 10:50 AM EDT [facility] Urine Urine specimen obtained by clean catch procedure / Unknown Non-blood Collection / Unknown 03/26/2025 9:34 AM EDT 03/26/2025 10:15 AM EDT Narrative [facility] - 03/26/2025 10:50 AM EDT Assay cutoff 5 ng/mL Semi-quantitative assay for screening purposes only. Unconfirmed screening result should not be used for non-medical purposes. *ALTERNATE METHOD CONFIRMATION DONE UPON REQUEST ONLY* us Zoie Florentino MD LAB URINE ORDERABLES Final Res ult Performing Organization Address [facility] de Phone Number [facility] [address] [place] [address], [place] [phone] * Methadone, urine (03/26/2025 9:34 AM EDT) Methadone Screen, Urine Negative Negative LAB CHEMISTRY METHOD 03/26/2025 10:50 AM EDT [facility] Comment: Assay cutoff 300 ng/mL [...] ORDERABLES Final Res ult Performing Organization Address City/[facility]/ZIP Co de Phone Number [facility] [address] [place] [address], [place] [phone] * Phencyclidine, urine (03/26/2025 9:34 AM EDT) Pathologist [facility] PCP Scrn, Ur Negative Negative LAB CHEMISTRY METHOD 03/26/2025 10:56 AM EDT [facility] Comment: Assay cutoff 25 ng/mL [...] Final Res ult Performing Organization Address [facility]/ZIP Co de Phone Number [facility] [address] [place] [address], [place] [phone] * Thyroid stimulating hormone with reflex to free t4 and free t3 (2025 9:44 PM EDT) [facility] TSH 2.35 0.40 - 4.00 mcIU/mL LAB CHEMISTRY METHOD 2025 11:20 PM EDT [facility] Blood Venous blood specimen / Unknown Venipuncture / Unknown 2025 9:44 PM EDT 2025 10:00 PM EDT Zoie Florentino MD LAB BLOOD ORDERABLES Final Res ult [facility] [address] [place] [address], [place] [phone] * (ABNORMAL) CBC auto differential (2025 9:44 PM EDT) [facility] WBC 3.9(L) 4.8 - 10.8 K/mcL LAB HEMETOLOGY METHOD 2025 10:07 PM EDT [facility] RBC 3.20(L) 3.80 - 4.80 M/mcL [facility]25 [facility] Hemoglobin 10.9(L) 11.5 - 16.0 g/dL LAB HEMETOLOGY METHOD 2025 10:07 PM [facility] Hematocrit 32.6(L) 35.0 - 47.0 % LAB HEMETOLOGY METHOD 2025 10:07 [facility] MCV 101.9(H) 79.0 - 98.0 FL LAB HEMETOLOGY METHOD 2025 10:07 PM [facility] MCH 34.1(H) 27.0 - 32.0 pcg LAB HEMETOLOGY METHOD 2025 10:07 PM [facility] MCHC 33.4 32.0 - 37.0 g/dL LAB HEMETOLOGY METHOD 2025 10:07 PM [facility] RDW 13.0 11.0 - 15.0 % LAB HEMETOLOGY METHOD 2025 10:07 PM [facility] Platelets 147 130 - 400 K/mcL LAB HEMETOLOGY METHOD 2025 10:07 PM [facility] MPV 10.0 7.0 - 11.0 FL LAB HEMETOLOGY METHOD 2025 10:07 PM [facility] NRBC 0.0 <1.0 % LAB HEMETOLOGY METHOD 2025 10:07 PM [facility] NRBC Absolute 0.00 <0.10 K/mcL LAB HEMETOLOGY METHOD 2025 10:07 PM [facility] Neutrophils Relative 72.5 % LAB HEMETOLOGY METHOD 2025 10:07 PM [facility] Lymphocytes Relative 16.8 % LAB HEMETOLOGY METHOD 2025 10:07 PM EDT [facility] Monocytes Relative 8.8 % LAB HEMETOLOGY METHOD 2025 10:07 PM [facility] Eosinophils Relative 1.3 % LAB HEMETOLOGY METHOD 2025 10:07 PM [facility] Basophils Relative 0.3 % LAB HEMETOLOGY METHOD 2025 10:07 PM [facility] Immature Granulocytes Relative 0.3 % LAB HEMETOLOGY METHOD 2025 10:07 PM [facility] Neutrophils Absolute 2.80 1.50 - 7.00 K/mcL LAB HEMETOLOGY METHOD 2025 10:07 PM [facility] Lymphocytes Absolute 0.65(L) 1.00 - 5.00 K/mcL LAB HEMETOLOGY METHOD 2025 10:07 PM [facility] Monocytes Absolute 0.34 0.20 - 1.00 K/mcL LAB HEMETOLOGY METHOD 2025 10:07 PM [facility] Eosinophils Absolute 0.05 0.00 - 0.50 K/mcL LAB HEMETOLOGY METHOD 2025 10:07 PM [facility] Basophils Absolute 0.01 0.00 - 0.20 K/mcL LAB HEMETOLOGY METHOD 2025 10:07 PM [facility] Immature Granulocytes Absolute 0.01 0.00 - 0.03 K/mcL LAB HEMETOLOGY METHOD 2025 10:07 PM [facility] Blood Venous blood specimen / Unknown Venipuncture / Unknown 2025 9:44 PM EDT 2025 10:00 PM EDT Zoie Florentino MD LAB BLOOD ORDERABLES Final Res ult Performing Organization Address [facility] Co de Phone Number [facility] [address] [place] [address], [place] [phone] * (ABNORMAL) Magnesium (2025 9:44 PM EDT) Magnesium 1.8(L) 1.9 - 2.6 mg/dL LAB CHEMISTRY METHOD 03/26/2025 12:17 AM EDT [facility] Blood Venous blood specimen / Unknown Venipuncture / Unknown 2025 9:44 PM EDT 2025 10:00 PM EDT Zoie Florentino MD LAB BLOOD ORDERABLES Final Res ult Performing Organization Address [facility] de Phone Number [facility] [address] [place] [address], [place] [phone] * Ethanol (2025 9:44 PM EDT) Ethanol Level <3 0 - 10 mg/dL LAB CHEMISTRY METHOD 2025 10:47 PM EDT [facility] Blood Venous blood specimen / Unknown Venipuncture / Unknown 2025 9:44 PM EDT 2025 10:00 PM EDT Zoie Florentino MD LAB BLOOD ORDERABLES Final Res ult Performing Organization Address [facility] de Phone Number [facility] [address] [place] [address], [place] [phone] * (ABNORMAL) Acetaminophen level (2025 9:44 PM EDT) Only the most recent of2 resultswithin the time period is included. Acetaminophen Level <2.0(L) 10.0 - 30.0 mcg/mL LAB CHEMISTRY METHOD 2025 10:46 PM EDT [facility] Blood Venous blood specimen / Unknown Venipuncture / Unknown 2025 9:44 PM EDT 2025 10:00 PM EDT Zoie Florentino MD LAB BLOOD ORDERABLES Final Res ult Performing Organization Address [facility]/ZIP Co de Phone Number [facility] [address] [place] [address], [place] [phone] * (ABNORMAL) Salicylate level (2025 9:44 PM EDT) Salicylate Level <1.7(L) 2.0 - 29.0 mg/dL LAB CHEMISTRY METHOD 2025 10:47 PM EDT [facility] Blood Venous blood specimen / Unknown Venipuncture / Unknown 2025 9:44 PM EDT 2025 10:00 PM EDT us Zoie Florentino MD LAB BLOOD ORDERABLES Final Res ult Performing Organization Address [facility]/ZIP Co de Phone Number [facility] [address] [place] [address], [place] [phone] * (ABNORMAL) Comprehensive metabolic panel (2025 9:44 PM EDT) Sodium 145 133 - 145 mmol/L LAB CHEMISTRY METHOD 2025 10:48 PM EDT [facility] Potassium 3.6 3.5 - 5.5 mmol/L LAB CHEMISTRY METHOD 2025 10:48 PM EDT [facility] Chloride 113(H) 96 - 110 mmol/L LAB CHEMISTRY METHOD 2025 10:48 PM EDT [facility] CO2 27 21 - 32 mmol/L LAB CHEMISTRY METHOD 2025 10:48 PM [facility] Anion Gap 5 3 - 11 LAB CHEMISTRY METHOD 2025 10:48 PM [facility] Glucose 91 70 - 100 mg/dL LAB CHEMISTRY METHOD 2025 10:48 PM [facility] BUN 9 5 - 25 mg/dL LAB CHEMISTRY METHOD 2025 10:48 PM [facility] Creatinine 0.70 0.50 - 1.10 mg/dL LAB CHEMISTRY METHOD 2025 10:48 PM [facility] eGFR 100 >=60 mL/min/1. 73m2 LAB CHEMISTRY METHOD 2025 10:48 PM [facility] Comment:Calculation based on the Chronic Kidney Disease Epidemiology Collaboration (CKD-EPI) equation refit without adjustment for race. BUN/Creatinine Ratio 12.9 LAB CHEMISTRY METHOD 2025 10:48 PM [facility] Calcium 7.9(L) 8.5 - 10.5 mg/dL LAB CHEMISTRY METHOD 2025 10:48 PM [facility] AST (SGOT) 22 10 - 42 unit/L LAB CHEMISTRY METHOD 2025 10:48 PM [facility] ALT (SGPT) 24 10 - 60 unit/L LAB CHEMISTRY METHOD 2025 10:48 PM [facility] Alkaline Phosphatase 56 42 - 121 unit/L LAB CHEMISTRY METHOD 2025 10:48 PM [facility] Total Protein 5.2(L) 6.0 - 8.0 g/dL LAB CHEMISTRY METHOD 2025 10:48 PM [facility] Albumin 3.0(L) 3.2 - 5.0 g/dL LAB CHEMISTRY METHOD 2025 10:48 PM [facility] Total Bilirubin 0.4 0.0 - 1.4 mg/dL LAB CHEMISTRY METHOD 2025 10:48 PM EDT [facility] Blood Venous blood specimen / Unknown Venipuncture / Unknown 2025 9:44 PM EDT 2025 10:00 PM EDT us Zoie Florentino MD LAB BLOOD ORDERABLES Final Res ult [facility] [address] [place] [address], [place] [phone] from Last 3 Months Insurance MEDICAID - [place] Care Teams Setter Induction Heating Equipment Relationship Specialty Start Date End Date Physician, No Pcp PCP - General 05/09/24
--- OUTSIDE RECORDS SUMMARY | 2025-04-04 11:00 | XMS_ITS | Encounter Summary ---
Author Organization [employer] Address [address] [facility] 7[address] [place] [address] Care Team Providers Care Bag Loader Name Role Phone Kristy Wilder MD Primary Care Pro vider Bradly Gonzalez MD Unavailable Rk Smith Unavailable Buck Hess DPM Unavailable Rosanne Mosley Unavailable Reason for Visit * Reason Comments Med Refill Encounter Details Date Type Department Care Team (Late st Contact Info) Description 04/04/2025 Refill [facility] MEDICINE [address] [place], [place] [phone] Kristy Wilder MD [address] [place], [place] [phone] Social History Tobacco Use Types Packs/Day Years [...] Visit [facility] OPTOMETRY [address] [place] [address] PaulYvonne marlow, OD [address] [place] [address] 04/27/2025 3:00 PM EST Office Visit [facility] ADULT DENTAL [address] [place] [address] Zi Lozano DDS [address] [place] [address] 05/10/2025 1:30 PM EST Clinical Support [facility] MEDICINE [address] [place] [address] 05/16/2025 2:00 PM EST Telemedicine [facility] MED & PEDS [address] [place] [address] Colette Diop, BRICE [address] [place] [address] documented as of this encounter Visit Diagnoses Not on filedocumented in this encounter Additional Health Concerns Assessment Noted Time PHQ-9 Depression Total Score: 14 03/08/ 025 11:30 AM EDT documented as of this encounter Care Teams Bag Loader Relationship Specialty Start Date End Date Kristy Wilder MD [address] [place] [address] PCP - General Internal Medicine 12/26/22 Bradly Gonzalez MD [address] [place] [address] Vascular Surgery 07/17/22 Rk Smith 100 [facility] [address] [place] [address] Otolaryngology 01/14/25 Buck Hess DPM [address] [facility] [address] [place] [address] Podiatry 01/14/25 Rosanne Mosley 03/28/25 Evita Hanna [employer] Language TutorBoiler Tube Reamer 11/04/[address] [address] Physical Therapy 07/17/22 documented as of this encounter
--- OUTSIDE RECORDS SUMMARY | 2025-04-04 11:01 | XMS_ITS | Encounter Summary ---
Author Organization [employer] Address [address] [facility] 7 [place] [address] Care Team Providers Care Numerologist Name Role Phone Kristy Wilder MD Primary Care Pro vider Bradly Gonzalez MD Unavailable Rk Smith Unavailable Buck Hess DPM Unavailable [phone] Rosanne Mosley Unavailable Reason for Visit * Reason Onset Date Comments PT-1 12/31/2024 Encounter Details Date Type Department Care Team ([facility] st Contact Info) Description 12/31/2024 Telephone [facility] MEDICINE [address] [place], [place] [phone] Kristy Wilder MD [address] [place], [place] [phone] PT-1 Social History Tobacco Use Types Packs/Day [...] Y/N: Yes Provider name or facility name: [facility] Facility Address: [address] [place] [address] Escort needed: Y/N: Yes Do you have a wheelchair: Y/N: No If yes- Manual or electric: N/A Visits: 3 times a month documented in this encounter Plan of Treatment Upcoming Encounters Date Type Department Care Team (Late st Contact Info) Description 04/15/2025 2:30 PM EST Office Visit [facility] OPTOMETRY [address] [place] [address] Yvonne Miller, OD [address] [place] [address] 04/27/2025 3:00 PM EST Office Visit [facility] ADULT DENTAL [address] [place] [address] Zi Lozano DDS [address] [place] [address] 05/10/2025 1:30 PM EST Clinical Support [facility] MEDICINE [address] [place] [address] 05/16/2025 2:00 PM EST Telemedicine [facility] MED & PEDS [address] [place] [address] Colette Diop, RN [address] [place] [address] documented as of this encounter Visit Diagnoses Not on filedocumented in this encounter Additional Health Concerns Assessment Noted Time PHQ-9 Depression Total Score: 16 025 2:11 PM EDT documented as of this encounter Care Teams Numerologist Relationship Specialty Start Date End Date Kristy Wilder MD [address] [place] [address] PCP - General Internal Medicine 12/26/22 Bradly Gonzalez MD [address] [place] [address] Vascular Surgery 07/17/22 Rk Smith 100 [facility] [address] [place] [address] Otolaryngology 01/14/25 Buck Hess DPM [address] [place] [address] 250 [place] [address] Podiatry 01/14/25 Rosanne Mosley 03/28/25 Evita Hanna Loader OperatorShip Boat Or Barge Mate 11/04/24 [facility] [address] [place] [address] Physical Therapy 07/17/22 documented as of this encounter
--- OUTSIDE RECORDS SUMMARY | 2025-04-04 11:01 | XMS_ITS | Encounter Summary ---
Author Organization [facility] Address [address] [place] [address] Care Team Providers Care Four H Club Agent Name Role Phone Davon Wu Primary Care Provider [phone] Encounter Details Date Type Department Care Team (Late st Contact Info) Description 10/31/2020 Orders Only [facility] Xray [address] [place] [address] Winifred Winston MD [address] [place], [place] [phone] Social History Tobacco Use Types Packs/Day Years [...] on filedocumented in this encounter Care Teams Four H Club Agent Relationship Specialty Start Date End Date Davon Wu [address] [place] [address] PCP - General Internal Medicine 09/28/18 documented as of this encounter
--- OUTSIDE RECORDS SUMMARY | 2025-04-04 11:01 | XMS_ITS | Encounter Summary ---
Author Organization [employer] Address [address] [facility] 7t [place] [address] Care Team Providers Care Growth Hacker Name Role Phone Khloe Fonseca LEAD AUDITOR Primary Care Provider Kristy Ring MD Primary Care Pro vider Bradly Gonzalez MD Unavailable Rk Smith Unavailable Buck Hess DPM Unavailable [phone] Rosanne Mosley Unavailable Encounter Details Date Type Department Care Team (Late Contact Info) Description 12/09/2022 Abstract [facility] MEDICINE [address] [place] [address] Khloe Fonseca FNP Social History Tobacco Use [...] Description 04/15/2025 2:30 PM EST Office Visit [facility] OPTOMETRY [address] [place] [address] Yvonne Miller, OD [address] [place] [address] 04/27/2025 3:00 PM EST Office Visit [facility] ADULT DENTAL [address] [place] [address] Zi Lozano DDS [address] [place] [address] 05/10/2025 1:30 PM EST Clinical Support [facility] MEDICINE [address] [place] [address] 05/16/2025 2:00 PM EST Telemedicine [facility] MED & PEDS [address] [place] [address] Colette Diop, RN 505 [place] [address] documented as of this encounter Visit Diagnoses Not on filedocumented in this encounter Additional Health Concerns Assessment Noted Time PHQ-9 Depression Total Score: 11 022 1:16 PM EST documented as of this encounter Care Teams Growth Hacker Relationship Specialty Start Date End Date Khloe Fonseca FNP PCP - General Family Medicine 02/05/22 12/25/22 Kristy Wilder MD [address] [place] [address] PCP - General Internal Medicine 12/26/22 Bradly Gonzalez MD [address] [place] [address] Vascular Surgery 07/17/22 Rk Smith 100 [facility] [address] [place] [address] Otolaryngology 01/14/25 Buck Hess DPM [address] [facility] [address] [place] [address] Podiatry 01/14/25 Rosanne Mosley 03/28/25 Evita Hanna [employer] Project ManagerDelivery Clerk 11/04/24 [facility] [address] [place] [address] Physical Therapy 07/17/22 documented as of this encounter
--- OUTSIDE RECORDS SUMMARY | 2025-04-04 11:01 | XMS_ITS ---
Author Organization [facility] Address [address] [place] [address] Care Team Providers Care Slot Supervisor Name Role Phone Davon Wu Primary Care Provider Active Problems Problem Noted Date Diagnosed Date [...]
--- OUTSIDE RECORDS SUMMARY | 2025-04-04 11:01 | XMS_ITS | Clinical Summary ---
Author Organization [facility] Address [address] [place] [address] Care Team Providers Care Rehabilitation Nurse Name Role Phone Bryce Terrietaijuice Partha Primary Care Provider Allergies Active Allergy Reactions Criticality Noted Date Comments Other Rash 02/04/2019 Contax, medication for [place] Medications buPROPion XL (WELLBUTRIN XL) 150 [...] series) 2042 Medical Devices Implanted Type Area Verification Lead Device Identifier Shelf Expiration Date Model / Serial / Lot System Closure Suture Medicated Perclose Proglide 6fr - [id number] Implanted:Qty: 1 on 02/04/2019 at [facility] Implant [employer] [id number] 126 73-03 / / Coil Embolization Neurovascular [place] 0.035in [id number] Tornado - [id number] Implanted:Qty: 1 on 02/04/2019 at [facility] Implant [employer] [id number] 10/11/19 23 [id number] / / [id number] Coil Embolization Neurovascular [place] 0.035in [id number] Tornado - [id number] Implanted:Qty: 1 on 02/04/2019 at [facility] Implant [employer] [id number] 08/03/19 24 [id number] / / [id number] Coil Embolization Neurovascular [place] 0.035in [id number] Tornado - [id number] Implanted:Qty: 1 on 02/04/2019 at [facility] Implant [employer] [id number] 08/03/19 24 [id number] / / [id number] Coil Embolization Neurovascular [place] 0.035in [id number] Tornado - [id number] Implanted:Qty: 1 on 02/04/2019 at [facility] Implant [employer] [id number] 08/03/19 24 [id number] / / [id number] Insurance [facility] Care Teams Rehabilitation Nurse Relationship Specialty Start Date End Date Davon Wu [address] [place] [address] PCP - General Internal Medicine 09/28/18
[2025-04-04 12:07] LABS: Alanine Aminotransferase 21 U/L (0-31); Albumin Level 4.1 g/dL (3.5-5.0); Alkaline Phosphatase 58 U/L (39-117); Anion Gap 8 (12-20); Aspartate Amino Transferase 32 U/L (5-31); Blood Urea Nitrogen 15 mg/dL (9-16); Calcium 9.1 mg/dL (8.4-10.2); Carbon Dioxide 29 mmol/L (22-29); Chloride 111 mmol/L (96-108); Estimated Glomerular Filt Rate > 60; Potassium 4.5 mmol/L (3.3-5.1); Sodium 143 mmol/L (135-145); Total Protein 6.5 g/dL (6.5-8.0)
[2025-04-04 12:27] LABS: Alanine Aminotransferase 24 U/L (0-31); Albumin Level 4.1 g/dL (3.5-5.0); Alkaline Phosphatase 59 U/L (39-117); Anion Gap 9 (12-20); Aspartate Amino Transferase 28 U/L (5-31); Blood Urea Nitrogen 15 mg/dL (9-16); Calcium 9.1 mg/dL (8.4-10.2); Carbon Dioxide 29 mmol/L (22-29); Chloride 110 mmol/L (96-108); Cholesterol 161 mg/dL (<200); Estimated Glomerular Filt Rate > 60; HDL Cholesterol 31 mg/dL (>40); Potassium 4.4 mmol/L (3.3-5.1); Sodium 144 mmol/L (135-145); Total Protein 6.6 g/dL (6.5-8.0); Triglycerides 126 mg/dL (<150)
[2025-04-04 12:32] LABS: Free T4 (Free Thyroxine) 0.94 ng/dL (0.71-1.85); Thyroid Stimulating Hormone 5.82 uIU/mL (0.32-4.0)
== END 2025-04-04 09:41 | disposition home or self-care (01) ==
LOC: HO.HHCL 09:40
PROVIDERS: Nurse Practitioner Family; PCP Student in an Organized Health Care Education/Training Program; Visit Provider Student in an Organized Health Care Education/Training Program
DX: C64.9 Malignant neoplasm of unspecified kidney, except renal pelvis (principal)
CPT/HCPCS: 36415; 80053; 80061; 84439; 84443

== ENCOUNTER 2025-04-07 13:55 | Outpatient (AMB) | payer MEDICAID, SELFPAY ==
--- NOTE | 2025-04-07 13:57 | MHC.OFFVIS ---
Intake Visit Reasons: Right LE vein check Intake Note: Patient presents for LE vein check. Patient states her veins on both legs are very painful. Accompanied by: Self / Same As Patient Allergies phenylephrine (From CONTAC-D COLD (PE)) Allergy (Unknown, Verified 04/07/25 14:00) EDEMA morphine Allergy (Verified 04/07/25 14:00) Rash Contac-D Allergy (Unknown, Uncoded 03/17/25 13:31) Unknown HPI HPI Right LE vein check: Details: Very pleasant 60-year-old female presents for follow-up evaluation regarding venous disease. She has had right lower extremity varicosities that have been a source of pain and discomfort for her. She appeared to be doing a little better after her venous ablation which was done in January of 2024. She has been conservatively managing it for year but seems to be causing her additional pain discomfort more so in the right calf region. She has been compliant with her stockings which have provided minimal relief to her. Also of note she has had prior port placement by Dr. Bustamante in 03/13/2023 and revision and redo on 05/08/2023. Of late that has been a source of pain and discomfort for her as well PFSH Medical History Pulmonary nodules Right renal mass Anxiety Depression Clear cell carcinoma of right kidney Surgical History Hx of colonoscopy History of esophagogastroduodenoscopy (EGD) S/P skin biopsy Status post hysterectomy Family History Maternal Uncle Stomach cancer Maternal Aunt Stomach cancer Paternal Aunt Colon cancer Sister Liver cancer Sister Skin cancer Social History Household Members: None Housing: Apartment Are you a primary rn progressive care unit to a significant other at home: No Do you presently have visiting nurse or other home services: Yes Alcohol intake: former Patient Tobacco Use Status: Never used Tobacco service: No Current occupational status: unemployed Sexual orientation: Straight/Heterosexual Review of Systems Const Reports as per HPI ENT Reports no additional complaints Card Denies chest pain, Denies chest pain at rest and Denies chest pain with activity Resp Denies chest congestion and Denies cough GI Reports no additional complaints Musc Details: pain over varicosities, aching of lower extremities, swelling, cramping, heaviness and tiredness, itching Denies abnormal gait Skin/Breast Reports pruritus and Denies wounds Neuro Reports no additional complaints and Denies abnormal gait Psych Denies no additional complaints Physical Exam Const General: cooperative, healthy appearing and comfortable Orientation/consciousness: oriented to person, oriented to place and oriented to time Neck Carotids: no bruits Chest Chest palpation & inspection: normal inspection of the chest and normal palpation of entire chest wall Resp Effort & Inspection: normal respiratory effort and able to speak in complete sentences Cardio Rate: regular rate Heart sounds: S1 normal heart sound present and S2 normal heart sound present Peripheral pulses: Peripheral pulses 2+ throughout GI Inspection: Yes normal to inspection Skin Other: +2 edema, large rope-like varicosities greater than 4 mm right calf CEAP Classification C4 - skin color changes Ep - Etiology Primary As - superficial veins P - reflux General skin exam: dry skin Neuro General: oriented to person, oriented to place and oriented to time Extrem Right lower extremity: full ROM, normal capillary refill and edema Left lower extremity: full ROM, normal capillary refill and edema Psych Mental Status: mental status grossly normal Assessment & Plan Assessment & Plan (1) Varicose veins of right lower extremity with inflammation: Comment: 01/30/2024 - right great saphenous vein Cyanoacralate ablation Code(s): I83.11 - Varicose veins of right lower extremity with inflammation Category: Medical Plan: This patient has varicose veins with inflammation. They continue to be a source of discomfort for the patient. The patient has tried conservative treatment with compression, leg elevation and exercise program for over 3 months time. They have been compliant with all treatment. This has provided minimal relief for the patient. I do not anticipate this course of treatment will alter the underlying etiology. The patient has been scheduled for lower extremity venous treatment inclusive of --- right leg microphlebectomy. Risks, benefits, and complications of this procedure has been discussed in detail with the patient including but not limited to bleeding, infection, and the development of a DVT. The patient has demonstrated a clear understanding and has consented. We will schedule the patient as soon as possible. Thank you for allowing us to participate in this patient's care. If there are any questions or concerns please do not hesitate to contact us. (2) Port-A-Cath in place: Code(s): Z95.828 - Presence of other vascular implants and grafts Category: Medical Plan: Left neck port source of discomfort for her. She was requested to reach out to her oncologist and the interventional team that originally placed this. We will continue to follow her for her venous disease. Coding Level of Care Code Est Pt Level 4 (63928) Diagnoses Varicose veins of right lower extremity with inflammation I83.11 Port-A-Cath in place Z95.828
--- OUTSIDE RECORDS SUMMARY | 2025-04-07 16:56 | XMS_ITS | Encounter Summary ---
Author Organization [employer] Address [address] [facility] 7t [place] [address] Care Team Providers Care Pattern Cutter Name Role Phone Kristy Wilder MD Primary Care Pro vider Bradly Gonzalez MD Unavailable Rk Smith Unavailable Buck Hess DPM Unavailable [phone] Rosanne Mosley Unavailable Reason for Visit * Reason Onset Date Comments Reschedule 07/07/2023 Encounter Details Date Type Department Care Team ([facility] st Contact Info) Description 07/07/2023 Telephone [facility] MEDICINE [address] [place], [place] [phone] Kristy Wilder MD [address] [place], [place] [phone] Reschedule Social History Tobacco Use Types Packs/Day [...] Tc from pt requesting to r/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 Please contact pt at [phone] (Faroese) documented in this encounter Plan of Treatment Upcoming Encounters Date Type Department Care Team (Late st Contact Info) Description 04/15/2025 2:30 PM EST Office Visit [facility] OPTOMETRY [address] [place] [address] Paul, Yvonne, OD [address] [place] [address] 04/27/2025 3:00 PM EST Office Visit [facility] ADULT DENTAL [address] [place] [address] Zi Lozano DDS [address] [place] [address] 05/10/2025 1:30 PM EST Clinical Support [facility] MEDICINE [address] [place] [address] 05/16/2025 2:00 PM EST Telemedicine [facility] MED & PEDS [address] [place] [address] Colette Diop, BRICE [address] [place] [address] documented as of this encounter Visit Diagnoses Not on filedocumented in this encounter Additional Health Concerns Assessment Noted Time PHQ-9 Depression Total Score: 16 023 11:20 AM EDT documented as of this encounter Care Teams Pattern Cutter Relationship Specialty Start Date End Date Kristy Wilder MD [address] [place] [address] PCP - General Internal Medicine 12/26/22 Bradly Gonzalez MD [address] [place] [address] Vascular Surgery 07/17/22 Rk Smith 100 [facility] [address] [place] [address] Otolaryngology 01/14/25 Buck Hess DPM 175 [facility] [address] [place] [address] Podiatry 01/14/25 Rosanne Mosley 03/28/25 Evita Hanna Decorating Equipment SetterDigital Content Marketing Manager 11/04/[address] [address] Physical Therapy 07/17/22 documented as of this encounter
--- OUTSIDE RECORDS SUMMARY | 2025-04-07 16:56 | XMS_ITS | Encounter Summary ---
Author Organization [employer] Address [address] [facility] 7t [place] [address] Care Team Providers Care Locomotive Driver Name Role Phone Kristy Wilder MD Primary Care Pro vider Bradly Gonzalez MD Unavailable Rk Smith Unavailable Buck Hess DPM Unavailable [phone] Rosanne Mosley Unavailable Encounter Details Date Type Department Care Team (Late st Contact Info) Description 04/04/2025 Orders Only [facility] MEDICINE [address] [place], [place] [phone] Kristy Wilder MD [address] [place] [address] Hypothyroidism, unspecified type (Primary Dx) Social History Tobacco Use Types Packs/Day Years [...] Description 04/15/2025 2:30 PM EST Office Visit [facility] OPTOMETRY [address] [place] [address] Paul, Yvonne, OD 230 [place] [address] 04/27/2025 3:00 PM EST Office Visit [facility] ADULT DENTAL [address] [place] [address] Zi Lozano DDS [address] [place] [address] 05/10/2025 1:30 PM EST Clinical Support [facility] MEDICINE [address] [place] [address] 05/16/2025 2:00 PM EST Telemedicine [facility] MED & PEDS [address] [place] [address] Colette Diop, BRICE [address] [place] [address] Scheduled Orders Name Type Priority Associated Diagnoses Orde r Schedule TSH Lab Routine Hypothyroidism, unspecified type Expected: 05/19/2025 (Approximate), Expires: 04/04/2026 T4, Free Lab Routine Hypothyroidism, unspecified type Expected: 05/19/2025 (Approximate), Expires: 04/04/2026 documented as of this encounter Visit Diagnoses Diagnosis Hypothyroidism, unspecified type- Primary documented in this encounter Additional Health Concerns Assessment Noted Time PHQ-9 Depression Total Score: 14 03/08/ 025 11:30 AM EDT documented as of this encounter Care Teams Locomotive Driver Relationship Specialty Start Date End Date Kristy Wilder MD [address] [place] [address] PCP - General Internal Medicine 12/26/22 Bradly Gonzalez MD [address] [place] [address] [place] [address] Vascular Surgery 07/17/22 Rk Smith 100 [facility] 100 [place] [address] Otolaryngology 01/14/25 Buck Hess DPM 175 [facility] [address] [place] [address] Podiatry 01/14/25 Rosanne Mosley 03/28/25 Evita Hanna Xerox Machine AssemblerAttractions Associate 11/04/[address] [address] Physical Therapy 07/17/22 documented as of this encounter
--- OUTSIDE RECORDS SUMMARY | 2025-04-07 16:56 | XMS_ITS | Clinical Summary ---
Author Organization [employer] Address [address] [facility] [address] [place] [address] Care Team Providers Care Medicaid Biller Name Role Phone Kristy Wilder MD Primary Care Pro vider Bradly Gonzalez MD Unavailable Rk Smith Unavailable Buck Hess DPM Unavailable [phone] Rosanne Mosley Unavailable Allergies Active Allergy Reactions Criticality Noted Date Comments Rltilyzil-El-Ijdtorkpvbjpl Unknown 3 Hydromorphone Rash Low 06/28/2020 Other [...] Apply topically 2 times daily. 50 g Active Alcohol Swabs (Alcohol Prep) 70 % padsIndications:T ype 2 diabetes mellitus without complications (HCC) USE DIRECTED THREE TIMES DAILY 100 each Active calcipotriene (Dovonex) 0.005 % ointmentIndicatio ns:Psoriasis APPLY TOPICALLY TO THE AFFECTED AREA(S) TWICE DAILY 60 g Active Fluocinolone Acetonide Scalp 0.01 % oilIndications:Ps oriasis APPLY TOPICALLY TO THE AFFECTED AREA(S) TWICE A WEEK 118.28 mL Active famotidine (Pepcid) 20 MG tabletIndications :Gastroesophageal [...] BY MOUTH EVERY MORNING 90 tablet 1 025 Active nystatin (Mycostatin) 315990 UNIT/GM powder Apply topically if needed each day for rash. 60 g 1 025 Active cholecalciferol (Vitamin D-3) 25 MCG (1000 UT) tablet Take 1 tablet (25 mcg) by mouth Once per day. 90 tablet 1 025 2025 Active sertraline (Zoloft) 100 MG tablet Take 1 tablet (100 mg) by mouth Once per day. 30 tablet 1 025 Active Dulaglutide (Trulicity) 1.5 MG/0.5ML solution auto-injector [...] IN THE EVENING 180 tablet 025 Active senna (Senokot) 8.6 MG tablet TAKE 1 TABLET BY MOUTH TWICE DAILY IN THE MORNING AND AT BEDTIME FOR CONSTIPATION 180 tablet 1 025 Active oxyCODONE (Roxicodone) 5 MG immediate release [...] medical assistance becomes available. 2 each 1 025 Active zolpidem (Ambien) 10 MG tabletIndications :Primary insomnia TAKE 1 TABLET BY MOUTH AT BEDTIME 28 tablet 025 Active losartan (Cozaar) 25 MG tabletIndications :Primary hypertension TAKE 1 TABLET BY MOUTH EVERYDAY AT NOON 90 tablet 1 025 Active atorvastatin (Lipitor) 10 MG tabletIndications :Mixed hyperlipidemia TAKE 1 TABLET BY MOUTH AT BEDTIME 90 tablet 1 Active docusate sodium (Colace) 100 MG capsuleIndication [...] EVERY MORNING BEFORE BREAKFAST 90 tablet Active TRUEplus Lancets 33G miscIndications:T ype 2 diabetes mellitus with other specified complication, without long-term current use of insulin ([facility]) USE DIRECTED TO TEST BLOOD SUGAR THREE TIMES DAILY 100 each 11 Active FREESTYLE LITE test stripIndications: Type 2 diabetes mellitus with other specified complication, without long-term current use of insulin ([facility]) USE DIRECTED TO TEST BLOOD SUGAR THREE TIMES DAILY 100 strip 11 Active FREESTYLE LITE test strip TEST BLOOD SUGAR THREE TIMES DAILY 100 strip 11 024 2024 Discontinued TRUEplus Lancets 33G misc TEST BLOOD SUGAR THREE TIMES DAILY 100 each 11 024 2024 Discontinued docusate sodium (Colace) 100 MG [...] episode of recurren t major depressive disorder ([facility]/HCC) 01/12/2025 Assessment & Plan (01/17/2025 9:49 AM [...] pt to bring RMV application for disability [employer] to Forms team. Pt has difficulty breathing r/t lung cancer diagnosis Pt will contact [employer] about increasing hours F/u PRN Therapeutic opioid [...] was grade 3. status post nephrectomy, at [facility] in January. 9.5 cm clear [...] organization. Date Type Department Care Team Description 04/06/[address] [facility] [address] [place] [phone] Kristy Wilder MD caroline recall 04/04/[address] [facility] [address] [place] [phone] Kristy Wilder MD Hypothyroidism, unspecified type (Primary Dx) 04/04/2025 Results Follow-Up [address] [address] Kristy Wilder MD TSH, T4, Free, Comprehensive Metabolic Panel, Lipid Panel, Standard 04/04/2025 Orders Only GENERIC EXTERNAL DATA DEPARTMENT Provider, Generic External Data 04/04/[address] [facility] [address] [place] [address] [phone] Kristy Wilder MD Type 2 diabetes mellitus with other specified complication, without long-term current use of insulin ([facility]) 03/29/2025 Patient Outreach [facility] [address] [place] [address] Kristy Wilder MD Care Coordination (CP Care Coordination chart review ) 03/28/[address] [facility] [address] [place] [phone] Kristy Wilder MD 03/22/[address] [facility] [address] [place] [phone] Kristy Wilder MD Acquired hypothyroidism 03/20/[address] [facility] [address] [place] [address] 164[address] Kristy Wilder MD 03/15/[address] [address] Kristy Wilder MD Nurse Triage 03/11/[address] [facility] [address] [place] [phone] Kristy Wilder MD Therapeutic opioid induced constipation 03/08/2025 10:45 AM EDT Office Visit [address] [address] Kristy Wilder MD Varicose veins of lower extremity, unspecified laterality, unspecified whether complicated (Primary Dx); Encounter for vaccination; Encounter for immunization; Essential hypertension; Varicose veins of both lower extremities, unspecified whether complicated; Type 2 diabetes mellitus with other specified complication, without long-term current use of insulin ([facility]); Health care maintenance; Depressive disorder; Memory loss 03/08/2025 Travel 03/07/[address] [facility] [address] [place] [phone] Kristy Wilder MD chart prep 03/02/[address] [facility] [address] [place] [phone] Kristy Wilder MD Primary hypertension; Mixed hyperlipidemia 03/01/2025 10:00 AM EDT Office Visit [facility] [address] [place] [address] Zi Lozano DDS 02/28/[address] [facility] [address] [place] [phone] Kristy Wilder MD Pre-visit Planning (SDOH screening was completed on 09/20/2024) 02/28/[address] [facility] [address] [place] [phone] Kristy Wilder MD Primary insomnia 02/25/[address] [facility] [address] [place] [phone] Kristy Wilder MD Primary insomnia 02/22/2025 2:00 PM EDT Clinical Support [facility] [address] [place] [address] Colette Diop RN Back pain, unspecified back location, unspecified back pain laterality, unspecified chronicity 02/22/2025 Refill [facility] [address] [place] [address] Colette Diop RN Back pain, unspecified back location, unspecified back pain laterality, unspecified chronicity 02/22/2025 Travel 02/09/[address] [facility] [address] [place] [phone] Kristy Wilder MD 01/31/[address] [facility] [address] [place] [phone] Kristy Wilder MD Primary insomnia 01/17/2025 Refill [facility] [address] [place] [address] Kristy Wilder MD 01/14/2025 9:45 AM EDT Office Visit [facility] [address] [place] [phone] Kristy Wilder MD Essential hypertension (Primary Dx); Type 2 diabetes mellitus with other specified complication, without long-term current use of insulin ([facility]); Obesity, unspecified class, unspecified obesity type, unspecified whether serious comorbidity present; Health care maintenance; Malignant neoplasm metastatic to lung, unspecified laterality (CMS/HCC); Renal cell carcinoma of right kidney (CMS/HCC); Anxiety; Depressive disorder; Transaminitis 01/14/2025 Travel 01/13/[address] [address] Kristy Wilder MD chart prep 01/11/2025 Orders Only [address] [address] Kristy Wilder MD 01/10/[address] [address] Kristy Wilder MD requesting call back 01/10/[address] [address] Kristy Wilder MD Call Back Request 01/05/2025 Orders Only [facility] External Provider, [facility] from Last 3 Months Immunizations Immunization Administration [...] Office Visit [facility] [address] [place] [address] Yvonne Miller, OD [address] [place] [address] 04/27/2025 3:00 PM EST Office Visit [facility] [address] [place] [address] Zi Lozano DDS [address] [place] [address] 05/10/2025 1:30 PM EST Clinical Support [facility] [address] [place] [address] 05/16/2025 2:00 PM EST Telemedicine [facility] [address] [place] [address] Colette Diop, RN [address] [place] [address] Health Maintenance Due Date Last Done Comments [...] Urine Protein Screening 12/22/2025 12/22/2024, 07/23/2023, 11/23/2021 Dental X-Ray: B[facility]wings 03/02/2026 03/01/2025 Tobacco Screening 03/08/2026 03/08/2025 Eye Exam 03/17/2026 03/17/2024, 02/2024, 03/17/2024, Additional history exists Lipid Panel 04/04/2026 04/04/2025, 12/07, 12/19/2023, Additional history exists Dental X-Ray: Full Mouth [...] Date/Time Associated Diagnosis Comments COMPREHENSIVE METABOLIC PANEL Routine 04/04/2025 9:49 AM EDT LIPID PANEL, STANDARD Routine 04/04/2025 9:49 AM EDT Type 2 diabetes mellitus with other specified complication, without long-term current use of insulin (HCC) COMPREHENSIVE METABOLIC PANEL Routine 04/04/2025 9:49 AM EDT Type 2 diabetes mellitus with other specified complication, without long-term current use of insulin (HCC) T4, FREE Routine 04/04/2025 9:49 AM EDT Acquired hypothyroidism TSH Routine 04/04/2025 9:49 AM EDT Acquired hypothyroidism PROPHYLAXIS - ADULT Routine 03/01/2025 1 0:00 [...] Relevant to Health Maintenance Results * (ABNORMAL) TSH (04/04/2025 9:49 AM EDT) Thyroid Stimulating Hormone 5.82(H) 0.32 - 4.0 uIU/mL [facility] Comment:Note: A sustained TS H level above 2.5 uIU/mL may warrant further investigation. TSH 3rd Generation ([facility]) Blood Venous blood specimen / Unknown 04/04/2025 9:49 AM EDT 04/04/2025 11:39 AM EDT us Kristy Mosley MD LAB BLOOD ORDERAB LES Final Result Performing Organization Address City/[facility]/ZIP Co de Phone Number [facility] [address] [place] [phone] * T4, Free (04/04/2025 9:49 AM EDT) Free T4 (Free Thyroxine) 0.94 0.71 - 1.85 ng/dL [facility] Blood Venous blood specimen / Unknown 04/04/2025 9:49 AM EDT 04/04/2025 11:39 AM EDT us Kristy Mosley MD LAB BLOOD ORDERAB LES Final Result Performing Organization Address City/[facility]/ZIP Co de Phone Number [facility] [address] [place] [phone] * (ABNORMAL) Lipid Panel, Standard (04/04/2025 9:49 AM EDT) Triglycerides 126 <150 mg/dL [facility] Comment:Desirable Triglyceri de: less than 150 mg/dLBorderline High Triglyceride 150-199 mg/dLHigh Triglyceride: 200-499 mg/dLVery High Triglyceride: greater than or equal to 5OO mg/dL Cholesterol 161 <200 mg/dL [facility] Comment:Desirable Cholestero l: less than 200 mg/dLBorderline High Cholesterol: 200-239 mg/dLHigh Cholesterol: greater than 239 mg/dL LDL Cholesterol Calculated 105(H) <100 mg/dL [facility] Comment:Desirable LDL: less than 100 mg/dLNear Optimal/Above Optimal LDL: 110- 129 mg/dLBorderline High LDL: 130-159 mg/dLHigh LDL: 160-189 mg/dLVery High LDL: greater than or equal to 190 mg/dL HDL Cholesterol 31(L) >40 mg/dL [facility] Comment:Desirable HDL: great er than 40 mg/dL Note: This HDL assay may give artificially low results in patients with liver disease. Blood Venous blood specimen / Unknown 04/04/2025 9:49 AM EDT 04/04/2025 11:39 AM EDT us Kristy Mosley MD LAB BLOOD ORDERAB LES Final Result [facility] [address] [place] [address] [phone] * (ABNORMAL) Comprehensive Metabolic Panel (04/04/2025 9:49 AM EDT) Only the most recent of2 resultswithin the time period is included. Sodium 143 135 - 145 mmol/L [facility] Potassium 4.5 3.3 - 5.1 mmol/L [facility] Chloride 111(H) 96 - 108 mmol/L [facility] Carbon Dioxide 29 22 - 29 mmol/L [facility] Anion Gap 8(L) 12 - 20 [facility] Urea Nitrogen (BUN) 15 9 - 16 mg/dL [facility] Creatinine, Serum 0.92 0.5 - 1.4 mg/dL [facility] Estimated Glomerular Filt Rate >60 [facility] Comment:Chronic Kidney Disea se: Estimated GFR < 60 mL/min/1.83s7Pdhigs Kidney Disease: Estimated GFR < 15 mL/min/1.73m2 Glucose 89 60 - 115 mg/dL [facility] Calcium 9.1 8.4 - 10.2 mg/dL [facility] Bilirubin, Total 0.4 0.0 - 1.0 mg/dL [facility] Aspartate Amino Transferase 32(H) 5 - 31 U/L [facility] Alanine Aminotransferase 21 0 - 31 U/L [facility] Total Protein 6.5 6.5 - 8.0 g/dL [facility] Albumin Level 4.1 3.5 - 5.0 g/dL [facility] Alkaline Phosphatase 58 39 - 117 U/L [facility] 04/04/2025 9:49 AM EDT 04/04/2025 11:39 AM EDT us Generic External Data Provider LAB BLOOD ORDERAB LES Final Result Performing Organization Address City/State/[facility] Co de Phone Number [facility] [address] [place] [phone] * (ABNORMAL) POCT KAJAL-14 Urine Drug Screen [...] PM EDT . Internal Pass Control Lot# [id number] Exp: 04-08-26 us Kristy Mosley MD POINT OF CARE NERY T ENTER/EDIT ORDERABLES Final Result * CT Abdomen Pelvis w/ Contrast (01/05/2025 2:21 PM EDT) Anatomical Region Laterality Modality Body, Pelvis, Abdomen Computed T omography 01/05/2025 2:21 PM EDT Narrative 01/05/2025 3:12 PM EDT [address] [address] [address] Scan Report Signed Patient: Krys Gillis MR# : [id number] : 1965 Acct:[id number] Age/Sex: 59 / F ADM Date: 01/05/25 Loc: HO.CT Attending Dr: Sammie Leon NP Ordering Physician: Sammie Leon NP Date of Service: 01/05/25 Procedure(s): CT abdomen pelvis w IV con Accession Number(s): [id number] cc: Justina Erickson MD; Kristy Wilder MD; Sammie Leon NP Report Number: [id number]: Total DLP = 905.00 mGy-cm EXAMINATION: CT [...] 01/05/25 1509 DD/ 1421 TD/TT: 01/05/25 1454 Irrigation Supervisor: Procedure Note Donotuseinterpreter, Image - 01/05/[address] [address] [address] Scan Report Signed Patient: Krys Gillis# : [id number] : 1965Acct:[id number] Age/Sex: 59 / FADM Date: 01/05/25 Loc: HO.CT Attending Dr: Sammie Leon NP Ordering Physician: Sammie Leon NP Date of Service: 01/05/25 Procedure(s): CT abdomen pelvis w IV con Accession Number(s): [id number] cc: Justina Erickson MD; Kristy Wilder MD; Mark Leon Report Number: [id number]: Total DLP = 905.00 mGy-cm EXAMINATION: CT [...] 01/05/25 1509 DD/ 1421 TD/TT: 01/05/25 1454 Irrigation Supervisor: us [facility] External Provider IMG CT PROCEDURES Final Result * CT Chest w/ Contrast (01/05/2025 2:21 PM EDT) Anatomical Region Laterality Modality Body, Chest Computed Tomogra phy 01/05/2025 2:21 PM EDT Narrative 01/05/2025 3:12 PM EDT [address] [address] [address] Scan Report Signed Patient: Krys Gillis MR# : [id number] : 1965 Acct:[id number] Age/Sex: 59 / F ADM Date: 01/05/25 Loc: HO.CT Attending Dr: Sammie Leon NP Ordering Physician: Sammie Leon NP Date of Service: 01/05/25 Procedure(s): CT chest w IV con Accession Number(s): [id number] cc: Justina Erickson MD; Kristy Wilder MD; Sammie Leon NP Report Number: [id number]: Total DLP = 905.00 mGy-cm EXAMINATION: CT [...] 01/05/25 1509 DD/ 1421 TD/TT: 01/05/25 1454 Irrigation Supervisor: Procedure Note Donotuseinterpreter, Image - 01/05/[address] [address] [address] Scan Report Signed Patient: Krys Gillis# : [id number] : 1965Acct:[id number] Age/Sex: 59 / FADM Date: 01/05/25 Loc: HO.CT Attending Dr: Sammie Leon NP Ordering Physician: Sammie Leon NP Date of Service: 01/05/25 Procedure(s): CT chest w IV con Accession Number(s): [id number] cc: Justina Erickson MD; Kristy Wilder MD; Mark Leon Report Number: [id number]: Total DLP = 905.00 mGy-cm EXAMINATION: CT [...] 01/05/25 1509 DD/ 1421 TD/TT: 01/05/25 1454 Irrigation Supervisor: [facility] External Provider IMG CT PROCEDURES Final Result * Albumin, Random Urine W/Creatinine (12/22/2024 9:56 AM EDT) Creatinine, Urine 257.42 mg/dL [facility] Microalbumin Urine 23.0 mg/L [facility] Microalbum Creatinine Ratio Ur 8.9 <30 ug/mg cr [facility] Comment:Albumin/Creatinine R atio Reference Ranges: Normal: < 30 ug/mg creatinine Microalbuminuria: 30 - 300 ug/mg creatinineClinical Albuminuria: > 300 ug/mg creatinine Urine (Urine, Random) 12/22/2024 9:56 AM EDT 12/22/2024 11:08 AM EDT Kristy Mosley MD LAB URINE ORDERAB LES Final Result Performing Organization Address [facility] Co de Phone Number [facility] [address] [place] [phone] * Hepatitis C Antibody with Reflex to HCV, RNA, Quantitative, Real-Time PCR (12/22/2024 9:56 AM EDT) Hepatitis C Antibody Nonreactive Nonreactive [facility] Comment:Antibodies to HCV no t detected; does not exclude early acuteHCV infection. Blood Venous blood specimen / Unknown 12/22/2024 9:56 AM EDT 12/22/2024 11:07 AM EDT us Kristy Mosley MD LAB BLOOD ORDERAB LES Final Result Performing Organization Address [facility] Co de Phone Number [facility] [address] [place] [phone] * HIV-1/2 Antigen and Antibodies, Fourth Generation, with Reflexes (12/22/2024 9:56 AM EDT) HIV AB/AG Nonreactive Nonreactive [facility] Comment:HIV-1 p24 Ag and/or HIV-1/HIV-2 Ab not detected.A test result that is nonreactive does not exclude thepossibility of exposure to or infection with HIV-1 and/orHIV-2. Nonreactive results in this assay for individualswith prior exposure to HIV-1 and/or HIV-2 may be due toantigen and antibody levels that are below the limit ofdetection of this assay.[facility] HIV Ag/Ab Combo assay result andsupplemental assay results should be interpreted inconjunction with the patient's clinical presentation,history and other laboratory results. If the results areinconsistent with clinical evidence, additional testing issuggested to confirm the result. Blood Venous blood specimen / Unknown 12/22/2024 9:56 AM EDT 12/22/2024 11:07 AM EDT us Kristy Mosley MD LAB BLOOD ORDERAB LES Final Result Performing Organization Address [facility] Co de Phone Number [facility] [address] [place] [phone] * (ABNORMAL) Hemoglobin A1c (12/22/2024 9:56 AM EDT) Hemoglobin A1c 6.7(H) <6.0 % [facility] Comment:Hemoglobin A1C Refer ence Range Adults: 4.8 - 6.0 % Non diabetic: < 6.0 % Goal: < 7.0 %Additional Action Suggested: > 8.0 %Note: Hemoglobin A1c results are invalid for patients with abnormal amounts of HbF. Blood transfusions may impact the HbA1c concentration in the patient sample. Estimated Average Glucose 146 mg/dL [facility] Comment:eAG = Estimated ave rage glucose which is %A1C expressed asaverage glucose, using the formula of the [id number] Glucose study (ADAG), Diabetes Care, Vol.31,#8,Jan. 2007 Blood Venous blood specimen / Unknown 12/22/2024 9:56 AM EDT 12/22/2024 11:09 AM EDT Kristy Mosley MD LAB BLOOD ORDERAB LES Final Result Performing Organization Address [facility] Co de Phone Number [facility] [address] [place] [phone] * BI Mammogram Screening Tomosynthesis Bilateral (12/08/2024 1:55 PM EDT) Anatomical Region Laterality Modality Breast Bilateral Mammography 12/08/2024 1:55 PM EDT Narrative 12/19/2024 9:17 PM EDT [facility] [address] [place] [address] Mammography Report Signed Patient: Krys Gillis MR# : [id number] : 1965 Acct:[id number] Age/Sex: 59 / F ADM Date: 12/08/24 Loc: HO.MAMMO Attending Dr: Kristy Mosley MD Ordering Physician: Kristy Wilder MD sults: 1Negative Date of Service: 12/08/24 Follow Up: 1 Year From Orig inal Mammogram Procedure(s): MM tomosynthesis screening BI Accession Number(s): [id number] cc: Kristy Wilder MD EXAMINATION: MM SCREENING [...] 12/19/24 2114 DD/ 1355 TD/TT: 12/08/24 1410 Irrigation Supervisor: Procedure Note Donotuseinterpreter, Image - 12/19/2024 [facility] [address] [place], [place] [address] Mammography Report Signed Patient: Krys Gillis# : [id number] : 1965Acct:[id number] Age/Sex: 59 / FADM Date: 12/08/24 Loc: HO.MAMMO Attending Dr: Kristy Mosley MD Ordering Physician: Kristy Wilder sults: 1Negative Date of Service: 12/08/24Follow Up: 1 Year From Orig inal Mammogram Procedure(s): MM tomosynthesis screening BI Accession Number(s): [id number] cc: Kristy Wilder MD EXAMINATION: MM SCREENING [...] OV> 12/19/242113 DD/ 1355 TD/TT: 12/08/24 1410 Irrigation Supervisor: Kristy Mosley MD IMG BI PROCEDURES Edited Result - Final * Pap Smear (11/01/2020) Pap smear Performed Historical Provider HEALTH MAINTENANCE Final Result * Colonoscopy (11/23/2018) Colonoscopy Performed Historical Provider HEALTH MAINTENANCE Edited Result - Final from Last 3 Months or Most Recently Relevant to Health Maintenance Insurance [facility] C3 DENTAL-[facility] MEDICAID STAND ADULT Care Teams Medicaid Biller Relationship Specialty Start Date End Date Kristy Wilder MD [address] [place] [phone] PCP - General Internal Medicine 12/26/22 Bradly Gonzalez MD [address] [place] [address] Drive [address] [place] [address] Vascular Surgery 07/17/22 Rk Smith [address] [place] [address] Otolaryngology 01/14/25 Buck Hess DPM [address] [place] [address] [address] [place] [address] Podiatry 01/14/25 Rosanne Mosley 03/28/25 Evita Hanna Arch Cushion Skiving Machine OperatorPaper Bag Inspector 11/04/[address] [address] Physical Therapy 07/17/22
--- OUTSIDE RECORDS SUMMARY | 2025-04-07 16:56 | XMS_ITS | Encounter Summary ---
Author Organization [employer] Address [address] [facility] 7t [place] [address] Care Team Providers Care Rouge Mixer Name Role Phone Kristy Wilder MD Primary Care Pro vider Bradly Gonzalez MD Unavailable Rk Smith Unavailable Buck Hess DPM Unavailable [phone] Rosanne Mosley Unavailable Reason for Visit * Reason Comments Med Refill Encounter Details Date Type Department Care Team (Late st Contact Info) Description 05/15/2023 Refill [facility] MEDICINE [address] [place], [place] [phone] Evelina Freeman MD [address] [place], [place] [phone] Social History Tobacco Use Types Packs/Day Years [...] Description 04/15/2025 2:30 PM EST Office Visit [facility] OPTOMETRY [address] [place] [address] Yvonne Miller, OD 230 [place] [address] 04/27/2025 3:00 PM EST Office Visit [facility]ULT DENTAL [address] [place] [address] Zi Lozano DDS [address] [place] [address] 05/10/2025 1:30 PM EST Clinical Support [facility] MEDICINE [address] [place] [address] 05/16/2025 2:00 PM EST Telemedicine [facility] MED & PEDS [address] [place] [address] Colette Diop, RN 505 [place] [address] documented as of this encounter Visit Diagnoses Not on filedocumented in this encounter Additional Health Concerns Assessment Noted Time PHQ-9 Depression Total Score: 16 023 11:20 AM EDT documented as of this encounter Care Teams Rouge Mixer Relationship Specialty Start Date End Date Kristy Wilder MD [address] [place] [address] [place] [address] PCP - General Internal Medicine 12/26/22 Bradly Gonzalez MD [address] [place] [address] Vascular Surgery 07/17/22 Rk Smith [address] [facility] [address] [place] [address] Otolaryngology 01/14/25 Buck Hess DPM [address] [facility] [address] [place] [address] Podiatry 01/14/25 Rosanne Mosley 03/28/25 Evita Hanna HistoriographerAuditing Manager 11/04/24 [facility] CORE [address] [place] [address] Physical Therapy 07/17/22 documented as of this encounter
--- OUTSIDE RECORDS SUMMARY | 2025-04-07 16:56 | XMS_ITS | Clinical Summary ---
Author Organization [facility] Address [address] [place] [address] Phone Care Team Providers Care Direct Marketing Intern Name Role Phone Physician, No Pcp Primary [...] - 03/30/2025 1:41 PM EDT Emergency [facility] Emergency [address] [place] [phone] Zoie Florentino MD Wyman, Tim, MD Zaidi, MD Tonja Zurita, MD Bharath Scott, MD Isaac Ewing, MD Juana Willis, MD Rufina Betts Mathew, MD Medication overdose, intentional self-harm, initial encounter ([facility] V24, [facility] V28) (Primary Dx) Discharge Disposition: [facility] from Last 3 Months Medical History Medical History Date Comments Diabetes mellitus ([facility] V24, [facility] V28) Hypertension Social History Tobacco [...] GEMUSE QTc 434 ms GEMUSE P Wave [place] 31 degrees GEMUSE R [place] 38 degrees GEMUSE T [place] 47 degrees GEMUSE ECG Interpretation Normal sinus [...] resultswithin the time period is included. Pathologist [facility] [place] Glucose POCT 85 70 - 100 mg/dL 03/29/2025 8:30 AM EDT [facility] Blood Capillary blood specimen / Unknown 03/29/2025 8:22 AM EDT 03/29/2025 8:31 AM EDT Everardo Gray MD LAB POINT OF CARE TEST DOCKED DEVICE UNSOLICITED RESULTS Final Result Performing Organization Address City/[facility]/ZIP Co de Phone Number [facility] [address] [place] [address], [place] [phone] * Activated Partial Thromboplastin Time - STAT (03/26/2025 6:31 PM EDT) [facility] aPTT 32.6 24.1 - 39.3 sec LAB COAGULATION METHOD 03/26/2025 7:16 PM EDT [facility] Blood Venous blood specimen / Unknown Venipuncture / Unknown 03/26/2025 6:31 PM EDT 03/26/2025 6:53 PM EDT Ayden Vera MD LAB BLOOD ORDERABLES Shelli l Result Performing Organization Address City/[facility]/ZIP Co de Phone Number [facility] [address] [place] [address], [place] [phone] * Prothrombin Time with INR - STAT (03/26/2025 6:31 PM EDT) [facility] Protime 12.3 10.6 - 13.9 sec LAB COAGULATION METHOD 03/26/2025 7:16 PM EDT [facility] INR 1.0 LAB COAGULATION METHOD 03/26/2025 7:16 PM EDT [facility] Blood Venous blood specimen / Unknown Venipuncture / Unknown 03/26/2025 6:31 PM EDT 03/26/2025 6:53 PM EDT Ayden Vera MD LAB BLOOD ORDERABLES Shelli l Result [facility] [address] [place] [address], [place] [phone] * (ABNORMAL) Drug abuse screen 8a panel, urine (03/26/2025 9:34 AM EDT) [facility] Amphetamine Screen, Ur Negative Negative LAB CHEMISTRY METHOD 10:50 AM EDT [facility] Comment:Certain OTC medicati ons containing ephedrine, phenylephrine, pseudoephedrine and phenylpropanolamine can cause false positive results. Barbiturate Screen, Ur Negative Negative LAB CHEMISTRY METHOD 10:50 AM EDT [facility] Benzodiazepine Screen, Ur Positive(A ) Negative LAB CHEMISTRY METHOD 10:50 AM T [facility] Cocaine Screen, Ur Negative Negative LAB CHEMISTRY METHOD 10:50 AM T [facility] Opiate Screen, Ur Negative Negative LAB CHEMISTRY METHOD 10:50 AM [facility] Cannabinoid (THC) Screen, Ur Negative Negative LAB CHEMISTRY METHOD 10:50 AM [facility] Comment:Specimens from patie nts taking pantoprazole sodium (Protonix) have been shown to produce false positive results. Oxycodone Screen, Ur Negative Negative LAB CHEMISTRY METHOD 10:50 AM [facility] Fentanyl, Ur Negative Negative LAB CHEMISTRY METHOD 10:50 AM [facility] Urine Urine specimen obtained [...] MD LAB URINE ORDERABLES Final Res ult [facility] [address] [place] [address], [place] [phone] * Buprenorphine screen, urine (03/26/2025 9:34 AM [...] ORDERABLES Final Res ult Performing Organization Address [facility] de Phone Number [facility] [address] [place] [address], [place] [phone] * Methadone, urine (03/26/2025 9:34 AM EDT) [...] ORDERABLES Final Res ult Performing Organization Address City/[facility]/ZIP Co de Phone Number [facility] [address] [place] [address], [place] [phone] * Phencyclidine, urine (03/26/2025 9:34 AM EDT) Pathologist [facility] PCP Scrn, Ur Negative Negative LAB CHEMISTRY [...] ORDERABLES Final Res ult Performing Organization Address [facility]/ZIP Co de Phone Number [facility] [address] [place] [address], [place] [phone] * Thyroid stimulating hormone with reflex to free t4 and free t3 (2025 9:44 PM EDT) [facility] TSH 2.35 0.40 - 4.00 mcIU/mL LAB CHEMISTRY METHOD 2025 11:20 PM EDT [facility] Blood Venous blood specimen / Unknown Venipuncture / Unknown 2025 9:44 PM EDT 2025 10:00 PM EDT Zoie Florentino MD LAB BLOOD ORDERABLES Final Res ult [facility] [address] [place] [address], [place] [phone] * (ABNORMAL) CBC auto differential (2025 9:44 PM EDT) [facility] WBC 3.9(L) 4.8 - 10.8 K/mcL LAB HEMETOLOGY METHOD 2025 10:07 PM EDT [facility] RBC 3.20(L) 3.80 - 4.80 M/mcL LAB [facility]25 [facility] Hemoglobin 10.9(L) 11.5 - 16.0 g/dL LAB HEMETOLOGY METHOD 2025 10:07 PM [facility] Hematocrit 32.6(L) 35.0 - 47.0 % LAB HEMETOLOGY METHOD 2025 10:07 [facility] MCV 101.9(H) 79.0 - 98.0 FL LAB HEMETOLOGY METHOD 2025 10:07 PM [facility] MCH 34.1(H) 27.0 - 32.0 pcg LAB HEMETOLOGY METHOD 2025 10:07 PM [facility] MCHC 33.4 32.0 - 37.0 g/dL LAB HEMETOLOGY METHOD 2025 10:07 PM [facility] RDW 13.0 11.0 - 15.0 % LAB HEMETOLOGY METHOD 2025 10:07 PM [facility] Platelets 147 130 - 400 K/mcL LAB HEMETOLOGY METHOD 2025 10:07 PM [facility] MPV 10.0 7.0 - 11.0 FL LAB HEMETOLOGY METHOD 2025 10:07 PM [facility] NRBC 0.0 <1.0 % LAB HEMETOLOGY METHOD 2025 10:07 PM [facility] NRBC Absolute 0.00 <0.10 K/mcL LAB HEMETOLOGY METHOD 2025 10:07 PM [facility] Neutrophils Relative 72.5 % LAB HEMETOLOGY METHOD 2025 10:07 PM [facility] Lymphocytes Relative 16.8 % LAB HEMETOLOGY METHOD 2025 10:07 PM EDT [facility] Monocytes Relative 8.8 % LAB HEMETOLOGY METHOD 2025 10:07 PM [facility] Eosinophils Relative 1.3 % LAB HEMETOLOGY METHOD 2025 10:07 PM [facility] Basophils Relative 0.3 % LAB HEMETOLOGY METHOD 2025 10:07 PM [facility] Immature Granulocytes Relative 0.3 % LAB HEMETOLOGY METHOD 2025 10:07 PM [facility] Neutrophils Absolute 2.80 1.50 - 7.00 K/mcL LAB HEMETOLOGY METHOD 2025 10:07 PM [facility] Lymphocytes Absolute 0.65(L) 1.00 - 5.00 K/mcL LAB HEMETOLOGY METHOD 2025 10:07 PM [facility] Monocytes Absolute 0.34 0.20 - 1.00 K/mcL LAB HEMETOLOGY METHOD 2025 10:07 PM [facility] Eosinophils Absolute 0.05 0.00 - 0.50 K/mcL LAB HEMETOLOGY METHOD 2025 10:07 PM [facility] Basophils Absolute 0.01 0.00 - 0.20 K/mcL LAB HEMETOLOGY METHOD 2025 10:07 PM [facility] Immature Granulocytes Absolute 0.01 0.00 - 0.03 K/mcL LAB HEMETOLOGY METHOD 2025 10:07 PM [facility] Blood Venous blood specimen / Unknown Venipuncture / Unknown 2025 9:44 PM EDT 2025 10:00 PM EDT Zoie Florentino MD LAB BLOOD ORDERABLES Final Res ult Performing Organization Address [facility] Co de Phone Number [facility] [address] [place] [address], [place] [phone] * (ABNORMAL) Magnesium (2025 9:44 PM EDT) Magnesium 1.8(L) 1.9 - 2.6 mg/dL LAB CHEMISTRY METHOD 03/26/2025 12:17 AM EDT [facility] Blood Venous blood specimen / Unknown Venipuncture / Unknown 2025 9:44 PM EDT 2025 10:00 PM EDT Zoie Florentino MD LAB BLOOD ORDERABLES Final Res ult Performing Organization Address [facility] de Phone Number [facility] [address] [place] [address], [place] [phone] * Ethanol (2025 9:44 PM EDT) Ethanol Level <3 0 - 10 mg/dL LAB CHEMISTRY METHOD 2025 10:47 PM EDT [facility] Blood Venous blood specimen / Unknown Venipuncture / Unknown 2025 9:44 PM EDT 2025 10:00 PM EDT Zoie Florentino MD LAB BLOOD ORDERABLES Final Res ult Performing Organization Address [facility] de Phone Number [facility] [address] [place] [address], [place] [phone] * (ABNORMAL) Acetaminophen level (2025 9:44 PM [...] ORDERABLES Final Res ult Performing Organization Address [facility]/ZIP Co de Phone Number [facility] [address] [place] [address], [place] [phone] * (ABNORMAL) Salicylate level (2025 9:44 PM EDT) Salicylate Level <1.7(L) 2.0 - 29.0 mg/dL LAB CHEMISTRY METHOD 2025 10:47 PM EDT [facility] Blood Venous blood specimen / Unknown Venipuncture / Unknown 2025 9:44 PM EDT 2025 10:00 PM EDT us Zoie Florentino MD LAB BLOOD ORDERABLES Final Res ult Performing Organization Address [facility]/ZIP Co de Phone Number [facility] [address] [place] [address], [place] [phone] * (ABNORMAL) Comprehensive metabolic panel (2025 9:44 [...] mmol/L LAB CHEMISTRY METHOD 2025 10:48 PM [facility] Anion Gap 5 3 - 11 LAB CHEMISTRY METHOD 2025 10:48 PM [facility] Glucose 91 70 - 100 mg/dL LAB CHEMISTRY METHOD 2025 10:48 PM [facility] BUN 9 5 - 25 mg/dL LAB CHEMISTRY METHOD 2025 10:48 PM [facility] Creatinine 0.70 0.50 - 1.10 mg/dL LAB CHEMISTRY METHOD 2025 10:48 PM [facility] eGFR 100 >=60 mL/min/1. 73m2 LAB CHEMISTRY METHOD 2025 10:48 PM [facility] Comment:Calculation based on the Chronic Kidney Disease Epidemiology Collaboration (CKD-EPI) equation refit without adjustment for race. BUN/Creatinine Ratio 12.9 LAB CHEMISTRY METHOD 2025 10:48 PM [facility] Calcium 7.9(L) 8.5 - 10.5 mg/dL LAB CHEMISTRY METHOD 2025 10:48 PM [facility] AST (SGOT) 22 10 - 42 unit/L LAB CHEMISTRY METHOD 2025 10:48 PM [facility] ALT (SGPT) 24 10 - 60 unit/L LAB CHEMISTRY METHOD 2025 10:48 PM [facility] Alkaline Phosphatase 56 42 - 121 unit/L LAB CHEMISTRY METHOD 2025 10:48 PM [facility] Total Protein 5.2(L) 6.0 - 8.0 g/dL LAB CHEMISTRY METHOD 2025 10:48 PM [facility] Albumin 3.0(L) 3.2 - 5.0 g/dL LAB CHEMISTRY METHOD 2025 10:48 PM [facility] Total Bilirubin 0.4 0.0 - 1.4 mg/dL LAB CHEMISTRY METHOD 2025 10:48 PM EDT [facility] Blood Venous blood specimen / Unknown Venipuncture / Unknown 2025 9:44 PM EDT 2025 10:00 PM EDT us Zoie Florentino MD LAB BLOOD ORDERABLES Final Res ult [facility] [address] [place] [address], [place] [phone] from Last 3 Months Insurance MEDICAID - [place] Care Teams Direct Marketing Intern Relationship Specialty Start Date End Date Physician, No Pcp PCP - General 05/09/24
--- OUTSIDE RECORDS SUMMARY | 2025-04-07 16:56 | XMS_ITS | Encounter Summary ---
Author Organization [employer] Address [address] [facility] [address] 7t [place] [address] Care Team Providers Care Conditioner Tumbler Name Role Phone Kristy Wilder MD Primary Care Pro vider Bradly Gonzalez MD Unavailable Rk Smith Unavailable Buck Hess DPM Unavailable [phone] Rosanne Mosley Unavailable Encounter Details Date Type Department Care Team (Late st Contact Info) Description 04/04/2025 Orders Only GENERIC EXTERNAL DATA DEPARTMENT [...] 04/15/2025 2:30 PM EST Office Visit [facility] OPTOMETRY [address] [place] [address] Palu, Yvonne, OD [address] [place] [address] 04/27/2025 3:00 PM EST Office Visit [facility] ADULT DENTAL [address] [place] [address] Zi Lozano DDS [address] [place] [address] 05/10/2025 1:30 PM EST Clinical Support [facility] MEDICINE [address] [place] [address] 05/16/2025 2:00 PM EST Telemedicine [facility] [address] [place] [address] Colette Diop, RN [address] [place] [address] documented as of this encounter Procedures Procedure Name Priority Date/Time Associated Diagnosis Comments COMPREHENSIVE METABOLIC PANEL Routine 04/04/2025 9:49 AM EDT documented in this encounter Results * (ABNORMAL) Comprehensive Metabolic Panel (04/04/2025 9:49 AM EDT) Sodium 143 135 - 145 mmol/L [facility] Potassium 4.5 3.3 - 5.1 mmol/L [facility] Chloride 111(H) 96 - 108 mmol/L [facility] Carbon Dioxide 29 22 - 29 mmol/L [facility] Anion Gap 8(L) 12 - 20 [facility] Urea Nitrogen (BUN) 15 9 - 16 mg/dL [facility] Creatinine, Serum 0.92 0.5 - 1.4 mg/dL [facility] Estimated Glomerular Filt Rate >60 [facility] Comment:Chronic Kidney Disea se: Estimated GFR < 60 mL/min/1.30i3Bnsezi Kidney Disease: Estimated GFR < 15 mL/min/1.73m2 Glucose 89 60 - 115 mg/dL [facility] Calcium 9.1 8.4 - 10.2 mg/dL [facility] Bilirubin, Total 0.4 0.0 - 1.0 mg/dL [facility] Aspartate Amino Transferase 32(H) 5 - 31 U/L [facility] Alanine Aminotransferase 21 0 - 31 U/L [facility] Total Protein 6.5 6.5 - 8.0 g/dL [facility] Albumin Level 4.1 3.5 - 5.0 g/dL [facility] Alkaline Phosphatase 58 39 - 117 U/L [facility] 04/04/2025 9:49 AM EDT 04/04/2025 11:39 AM EDT us Generic External Data Provider LAB BLOOD ORDERAB LES Final Result [facility] [address] [place] [address] [phone] documented in this encounter Visit Diagnoses Not on filedocumented in this encounter Additional Health Concerns Assessment Noted Time PHQ-9 Depression Total Score: 14 03/08/ 025 11:30 AM EDT documented as of this encounter Care Teams Conditioner Tumbler Relationship Specialty Start Date End Date Kristy Wilder MD [address] [place] [address] PCP - General Internal Medicine 12/26/22 Bradly Gonzalez MD [address] [place] [address] Vascular Surgery 07/17/22 Rk Smith [address] [place] [address] Otolaryngology 01/14/25 Buck Hess DPM [address] [facility] [address] [place] [address] Podiatry 01/14/25 Rosanne Mosley 03/28/25 Evita Hanna Pai Gow ManagerStaff Research Scientist 11/04/[address] [address] Physical Therapy 07/17/22 documented as of this encounter
--- OUTSIDE RECORDS SUMMARY | 2025-04-07 16:56 | XMS_ITS | Encounter Summary ---
Author Organization [employer] Address [address] [facility] 7t [place] [address] Care Team Providers Care Cosmetology Professor Name Role Phone Kristy Wilder MD Primary Care Pro vider Bradly Gonzalez MD Unavailable Rk Smith Unavailable Buck Hess DPM Unavailable [phone] Rosanne Mosley Unavailable Reason for Visit * Reason Comments Med Refill Encounter Details Date Type Department Care Team (Late st Contact Info) Description 02/25/2025 Refill [facility] MEDICINE [address] [place], [place] [phone] Kristy Wilder MD [address] [place], [place] [phone] Primary insomnia Social History Tobacco Use Types [...] Description 04/15/2025 2:30 PM EST Office Visit [facility] OPTOMETRY [address] [place] [address] PaulYvonne marlow, OD [address] [place] [address] 04/27/2025 3:00 PM EST Office Visit [facility] D[facility] [address] [place] [address] Zi Lozano DDS [address] [place] [address] 05/10/2025 1:30 PM EST Clinical Support [facility] MEDICINE [address] [place] [address] 05/16/2025 2:00 PM EST Telemedicine [facility] [address] [place] [address] Colette Diop, BRICE [address] [place] [address] documented as of this encounter Visit Diagnoses Diagnosis Primary insomnia Persistent disorder of initiating or maintaining sleep documented in this encounter Additional Health Concerns Assessment Noted Time PHQ-9 Depression Total Score: 12 025 9:32 AM EDT documented as of this encounter Care Teams Cosmetology Professor Relationship Specialty Start Date End Date Kristy Wilder MD [address] [place] [address] PCP - General Internal Medicine 12/26/22 Bradly Gonzalez MD [address] [place] [address] Vascular Surgery 07/17/22 Rk Smith [address] [facility] [address] [place] [address] Otolaryngology 01/14/25 Buck Hess DPM [address] [place] [address] [address] [place] [address] Podiatry 01/14/25 Rosanne Mosley 03/28/25 Evita Hanna Photoengraving SupervisorMental Health Orderly 11/04/[address] [address] Physical Therapy 07/17/22 documented as of this encounter
--- OUTSIDE RECORDS SUMMARY | 2025-04-07 16:56 | XMS_ITS | Encounter Summary ---
Author Organization [employer] Address 75 [facility] 7 [place] [address] Care Team Providers Care Senior Executive Assistant Name Role Phone Kristy Wilder MD Primary Care Pro vider Bradly Gonzalez MD Unavailable Rk Smith Unavailable Buck Hess DPM Unavailable [phone] Rosanne Mosley Unavailable Reason for Visit * Reason Onset Date Comments Results 04/04/2025 Encounter Details Date Type Department Care Team (Latest Contact Info) Description 04/04/2025 Results Follow-Up [facility] MEDICINE [address] [place] [address] Kristy Wilder MD 230 [place] [address] TSH, T4, Free, Comprehensive Metabolic Panel, Lipid Panel, Standard Social History Tobacco Use Types Packs/Day Years [...] Telephone Encounter - Marisol Juarez RN - 04/04/2025 1:12 PM EDT TC placed to the pt with [employer] sealing and canceling machine operator #[id number] to inform of pt lab results below. Pt advised that lipids are much better but to continue on current dose of atorvastatin and to repeat these levels inthree months time. Pt informed that thyroid is slightly elevated but that no change will occur in current levothyroxine dose. Pt given direction to have labs repeated in six weeks and to hold the AM dose of levothyroxine on the day the labs are drawn. Pt stated understanding and had no further questions at this time. ----- Message from Kristy Mosley MD sent at 04/04/2025 12:56 PM EDT ----- Please inform pt from labs done her lipids much better close to normal I would continue current atorvastatin and advise to be compliant ,will repeat lipids in 3 months Also liver and renal function are normal now TSH noted slight elevated from previously normal recently w labs w oncologist Will hold on changing levothyroxine dose -please advise pt to repeat TSH ,T4 in 6 weeks I ordered tests today -remind that day of test to hold on am levothyroxine and take that ose after exam is done Thanks ----- Message ----- From: Interface, Lab Results In Sent: 04/04/2025 12:27 PM EDT To: Kristy Mosley MD * Result Encounter Note - Kristy Mosley MD - 04/04/2025 12:56 PM EDT Please inform pt from labs done her lipids much better close to normal I would continue current atorvastatin and advise to be compliant ,will repeat lipids in 3 months Also liver and renal function are normal now TSH noted slight elevated from previously normal recently w labs w oncologist Will hold on changing levothyroxine dose -please advise pt to repeat TSH ,T4 in 6 weeks I ordered tests today -remind that day of test to hold on am levothyroxine and take that ose after exam is done Thanks documented in this encounter Plan of Treatment Upcoming Encounters Date Type Department Care Team (Late st Contact Info) Description 04/15/2025 2:30 PM EST Office Visit [facility] OPTOMETRY [address] [place] [address] Paul, Yvonne, OD 230 [place] [address] 04/27/2025 3:00 PM EST Office Visit [facility] ADULT DENTAL [address] [place] [address] Zi Lozano DDS 230 [place] [address] 05/10/2025 1:30 PM EST Clinical Support [facility] MEDICINE [address] [place] [address] 05/16/2025 2:00 PM EST Telemedicine [facility] MED & PEDS [address] [place] [address] Colette Diop, BRICE 505 [place] [address] documented as of this encounter Visit Diagnoses Not on filedocumented in this encounter Additional Health Concerns Assessment Noted Time PHQ-9 Depression Total Score: 14 03/08/ 025 11:30 AM EDT documented as of this encounter Care Teams Senior Executive Assistant Relationship Specialty Start Date End Date Kristy Wilder MD 230 [place] [address] PCP - General Internal Medicine 12/26/22 Bradly Gonzalez MD [address] [place] [address] Vascular Surgery 07/17/22 Rk Smith [facility] [address] [place] [address] Otolaryngology 01/14/25 Buck Hess DPM [address] [facility] [address] [place] [address] Podiatry 01/14/25 Rosanne Mosley 03/28/25 Evita Hanna Specialist Wound CareStepdown Nurse 11/04/[address] [address] Physical Therapy 07/17/22 documented as of this encounter
--- OUTSIDE RECORDS SUMMARY | 2025-04-07 16:56 | XMS_ITS ---
Author Organization [employer] Address 75 [facility] 7t [place] [address] Care Team Providers Care Computer Typesetter Keyliner Name Role Phone Kristy Wilder MD Primary Care Pro vider Bradly Gonzalez MD Unavailable Rk Smith Unavailable Buck Hess DPM Unavailable [phone] Rosanne Mosley Unavailable CHW Complex Status:Outreach In Progress (Enrolling) Start date:03/28/2025 Enrollment reason:ADT Feed Overview CP Assigned Patient ED- Pt went to [facility] ED on 03/25/25. Case Team Name Relationship Phone Rosanne Mosley(Responsible Staff) [phone] Continued Care and Services Coordination
--- OUTSIDE RECORDS SUMMARY | 2025-04-07 16:56 | XMS_ITS | Encounter Summary ---
Author Organization [employer] Address 75 [facility] 7t [place] [address] Care Team Providers Care Night Cleaner Name Role Phone Kristy Wilder MD Primary Care Pro vider Bradly Gonzalez MD Unavailable Rk Smith Unavailable Buck Hess DPM Unavailable [phone] Rosanne Mosley Unavailable Reason for Visit * Reason Onset Date Comments jun recall 04/06/2025 Encounter Details Date Type Department Care Team ([facility] Contact Info) Description 04/06/2025 Telephone [facility] MEDICINE [address] [place], [place] [phone] Kristy Wilder MD [address] [place], [place] [phone] jun recall Social History Tobacco Use Types Packs/Day Years [...] is your housing situation today? I have k[place] 09/20/[address] you [...] Telephone Encounter - Candace Calderón [place] - 04/06/2025 2:36 PM EDT Telephone call to patient to schedule a recall appointment. No answer, Left voicemail to return call to clinic.. Recall letter sent. Visit type: Office Visit Appointment notes: memory results Month due: June With: Bird Please schedule appointment above if patient returns call documented in this encounter Plan of Treatment Upcoming Encounters Date Type Department Care Team (Late st Contact Info) Description 04/15/2025 2:30 PM EST Office Visit [facility] OPTOMETRY [address] [place] [address] Yvonne Miller, OD 230 [place] [address] 04/27/2025 3:00 PM EST Office Visit [facility] ADULT DENTAL [address] [place] [address] Zi Lozano, CRISTIANS 230 [place] [address] 05/10/2025 1:30 PM EST Clinical Support [facility] MEDICINE 230 [place] [address] 05/16/2025 2:00 PM EST Telemedicine [facility] MED [facility] PEDS 505 [place] [address] Colette Diop, RN 505 [place] [address] documented as of this encounter Visit Diagnoses Not on filedocumented in this encounter Additional Health Concerns Assessment Noted Time PHQ-9 Depression Total Score: 14 025 11:30 AM EDT documented as of this encounter Care Teams Night Cleaner Relationship Specialty Start Date End Date Kristy Wilder MD 230 [place] [address] PCP - General Internal Medicine 12/26/22 Bradly Gonzalez MD [address] [place] [address] [address] [place] [address] Vascular Surgery 07/17/22 Rk Smith 100 [facility] 100 [place] [address] Otolaryngology 01/14/25 Buck Hess DPM [address] [place] [address] Podiatry 01/14/25 Rosanne Mosley 03/28/25 Evita Hanna Glass PresserBusiness Agent 11/04/24 [facility] [address] [place] [address] Physical Therapy 07/17/22 documented as of this encounter
--- OUTSIDE RECORDS SUMMARY | 2025-04-07 16:57 | XMS_ITS | Encounter Summary ---
Author Organization [employer] Address 75 [facility] 7t [place] [address] Care Team Providers Care Appraiser Personal Property Name Role Phone Khloe Fonseca Primary Care Provider Kristy Ring MD Primary Care Pro vider Bradly Gonzalez MD Unavailable Rk Smith Unavailable Buck Hess DPM Unavailable [phone] Rosanne Mosley Unavailable Reason for Visit * Reason Onset Date Comments pt1 10/03/2022 Encounter Details Date Type Department Care Team (Late st Contact Info) Description 10/03/2022 Telephone [facility] MEDICINE [address] [place] [address] Khloe Fonseca FNP pt1 Social History Tobacco [...] 3 10/03/2022 9:34 AM EDT Jessenia Boston, FLOOR COVERING PRINTER Not being able to stop or control [...] oct 07 2022 Time: 2:30 pm address: [address] [place] [address] [address], [place] [address] specialty: # visits: purchasing director: no Wheelchair: no Date:10/23/22 Time:02 pm address: [facility] specialty: PCP # visits: purchasing director: no Wheelchair: no Date:11/07/22 Time: 1:30 address: [facility] specialty: PCP # visits: purchasing director: no Wheelchair:no documented in this encounter Plan of Treatment Upcoming Encounters Date Type Department Care Team (Late st Contact Info) Description 04/15/2025 2:30 PM EST Office Visit [facility] OPTOMETRY [address] [place] [address] Yvonne Miller, OD [address] [place] [address] 04/27/2025 3:00 PM EST Office Visit [facility] ADULT DENTAL [address] [place], [place] [phone] Zi Lozano DDS 230 [place] [address] 05/10/2025 1:30 PM EST Clinical Support [facility] MEDICINE [address] [place] [address] 05/16/2025 2:00 PM EST Telemedicine [facility] MED & PEDS 505 [place], [place] [phone] Colette Diop, RN 505 [place] [address] documented as of this encounter Visit Diagnoses Not on filedocumented in this encounter Additional Health Concerns Assessment Noted Time PHQ-9 Depression Total Score: 11 022 1:16 PM EST documented as of this encounter Care Teams Appraiser Personal Property Relationship Specialty Start Date End Date Khloe Fonseca FNP PCP - General Family Medicine 02/05/22 12/25/22 Kristy Wilder MD 230 [place] [address] PCP - General Internal Medicine 12/26/22 Bradly Gonzalez MD [address] [place] [address] Vascular Surgery 07/17/22 Rk Smith 100 [facility] [address] [place] [address] Otolaryngology 01/14/25 Buck Hess DPM [address] [place] [address] [place] [address] Podiatry 01/14/25 Rosanne Mosley 03/28/25 Evita Hanna Pest ControllerEnvironmental Services Director 11/04/24 [facility] [address] [place] [address] Physical Therapy 07/17/22 documented as of this encounter
--- OUTSIDE RECORDS SUMMARY | 2025-04-07 16:57 | XMS_ITS | Encounter Summary ---
Author Organization [employer] Address 75 [facility] 7 [place] [address] Care Team Providers Care Sewer Pipe Press Operator Name Role Phone Kristy Wilder MD Primary Care Pro vider Bradly Gonzalez MD Unavailable Rk Smith Unavailable Buck Hess DPM Unavailable [phone] Rosanne Mosley Unavailable Reason for Visit * Reason Onset Date Comments PT-1 08/03/2024 Encounter Details Date Type Department Care Team ([facility] st Contact Info) Description 08/03/2024 Telephone [facility] MEDICINE [address] [place], [place] [phone] Kristy Wilder MD 230 [place], [place] [phone] PT-1 Social History Tobacco Use Types Packs/Day [...] Y/N: Yes Provider name or facility name: [facility] Facility Address: [address] [place] [address] Escort needed: Y/N: No Do you have a wheelchair: Y/N: No If yes- Manual or electric: N/A Visits: Twice monthly documented in this encounter Plan of Treatment Upcoming Encounters Date Type Department Care Team (Late st Contact Info) Description 04/15/2025 2:30 PM EST Office Visit [facility] OPTOMETRY [address] [place] [address] Paul, Yvonne, OD 230 [place] [address] 04/27/2025 3:00 PM EST Office Visit [facility] CHC ADULT DENTAL [address] [place] [address] Zi Lozano, DDS 230 [place] [address] 05/10/2025 1:30 PM EST Clinical Support [facility] MEDICINE [address] [place] [address] 05/16/2025 2:00 PM EST Telemedicine [facility] MED & PEDS 505 [place] [address] Colette Diop, RN [address] [place] [address] documented as of this encounter Visit Diagnoses Not on filedocumented in this encounter Additional Health Concerns Assessment Noted Time PHQ-9 Depression Total Score: 4 10/31/19 1:38 PM EDT documented as of this encounter Care Teams Sewer Pipe Press Operator Relationship Specialty Start Date End Date Kristy Wilder MD 230 [place] [address] PCP - General Internal Medicine 12/26/22 Bradly Gonzalez MD [address] [place] [address] [address] [place] [address] Vascular Surgery 07/17/22 Rk Smith [address] [facility] [address] [place] [address] Otolaryngology 01/14/25 Buck Hess DPM [address] [place] [address] [address] [place] [address] Podiatry 01/14/25 Rosanne Mosley 03/28/25 Evita Hanna Composition Weatherboard ApplierPlisse Machine Operator 11/04/24 [facility] [address] [place] [address] Physical Therapy 07/17/22 documented as of this encounter
--- OUTSIDE RECORDS SUMMARY | 2025-04-07 16:57 | XMS_ITS | Encounter Summary ---
Author Organization [facility] Address [address] [place] [address] Care Team Providers Care Master Technician Name Role Phone Davon Wu Primary Care Provider [phone] Encounter Details Date Type Department Care Team (Late st Contact Info) Description 10/31/2020 Orders Only [facility] Xray [address] [place] [address] Winifred Winston MD [address] [place], [place] [phone] Social History Tobacco Use Types Packs/Day Years [...] on filedocumented in this encounter Care Teams Master Technician Relationship Specialty Start Date End Date Davon Wu 230 [place] [address] PCP - General Internal Medicine 09/28/18 documented as of this encounter
--- OUTSIDE RECORDS SUMMARY | 2025-04-07 16:57 | XMS_ITS | Encounter Summary ---
Author Organization [employer] Address 75 [facility] 7t h Floor [place] [phone] Care Team Providers Care Loan Reviewer Name Role Phone Khloe Fonseca PIG CASTING MACHINE OPERATOR Primary Care Provider Kristy Ring MD Primary Care Pro vider Bradly Gonzalez MD Unavailable Rk Smith Unavailable Buck Hess DPM Unavailable [phone] Rosanne Mosley Unavailable Reason for Visit * Reason Onset Date Comments Med Refill [facility] order 08/25/2022 Order # [id number] Encounter Details Date Type Department Care Team (Late st Contact Info) Description 08/25/2022 Refill [facility] MEDICINE [address] [place] [address] Khloe Fonseca FNP Type 2 diabetes mellitus without complication, without long-term current use of insulin ([facility]) Social History Tobacco Use Types [...] Description 04/15/2025 2:30 PM EST Office Visit [facility] OPTOMETRY [address] [place] [address] PaulYvonne marlow, OD [address] [place] [address] 04/27/2025 3:00 PM EST Office Visit [facility] ADULT DENTAL 505 [place], [place] [phone] Zi Lozano DDS [address] [place] [address] 05/10/2025 1:30 PM EST Clinical Support [facility] MEDICINE [address] [place] [address] 05/16/2025 2:00 PM EST Telemedicine [facility] MED & PEDS 505 [place], [place] [phone] Colette Diop RN 505 [place], [place] [phone] documented as of this encounter Visit Diagnoses Diagnosis Type 2 diabetes mellitus without complication, without long-term current use of insulin (HCC) documented in this encounter Additional Health Concerns Assessment Noted Time PHQ-9 Depression Total Score: 11 022 1:16 PM EST documented as of this encounter Care Teams Loan Reviewer Relationship Specialty Start Date End Date Khloe Fonseca FNP PCP - General Family Medicine 02/05/22 12/25/22 Kristy Wilder MD [address] [place] [address] PCP - General Internal Medicine 12/26/22 Bradly Gonzalez MD [address] [place] [address] Vascular Surgery 07/17/22 Rk Smith 100 [address] [place] [address] Otolaryngology 01/14/25 Buck Hess DPM [address] [place] [address] [address] [place] [address] Podiatry 01/14/25 Rosanne Mosley 03/28/25 Evita Hanna Chief Deputy CoronerPlumbing Hardware Assembler 11/04/24 [facility] [address] [place] [address] Physical Therapy 07/17/22 documented as of this encounter
--- OUTSIDE RECORDS SUMMARY | 2025-04-07 16:57 | XMS_ITS | Encounter Summary ---
Author Organization [employer] Address 75 [facility] 7 [place] [address] Care Team Providers Care Mat Machine Tender Name Role Phone Kristy Wilder MD Primary Care Pro vider Bradly Gonzalez MD Unavailable Rk Smith Unavailable Buck Hess DPM Unavailable [phone] Rosanne Mosley Unavailable Reason for Visit * Reason Onset Date Comments Letter for School/Work 12/26/2022 Encounter Details Date Type Department Care Team (Late st Contact Info) Description 12/26/2022 Telephone [facility] MEDICINE 230 [place], [place] [phone] Kristy Wilder MD 230 [place], [place] [phone] Letter for School/Work Social History Tobacco Use [...] for PCP to make a letter for MANAGER BRANCH hours and dx on letter to be faxed to [phone] documented in this encounter Plan of Treatment Upcoming Encounters Date Type Department Care Team (Late st Contact Info) Description 04/15/2025 2:30 PM EST Office Visit [facility] OPTOMETRY [address] [place] [address] Yvonne Miller, OD 230 [place] [address] 04/27/2025 3:00 PM EST Office Visit [facility] ADULT DENTAL 505 [place] [address] Zi Lozano DDS 230 [place] [address] 05/10/2025 1:30 PM EST Clinical Support [facility] MEDICINE 230 [place] [address] 05/16/2025 2:00 PM EST Telemedicine [facility] MED & PEDS 505 [place] [address] Colette Diop, RN 505 [place] [address] documented as of this encounter Visit Diagnoses Not on filedocumented in this encounter Additional Health Concerns Assessment Noted Time PHQ-9 Depression Total Score: 11 022 1:16 PM EST documented as of this encounter Care Teams Mat Machine Tender Relationship Specialty Start Date End Date Kristy Wilder MD 230 [place] [address] PCP - General Internal Medicine 12/26/22 Bradly Gonzalez MD [address] [place] [address] Vascular Surgery 07/17/22 Rk Smith [address] [place] [address] Otolaryngology 01/14/25 Buck Hess DPM 175 [facility] [address] [place] [address] Podiatry 01/14/25 Rosanne Mosley 03/28/25 Evita Hanna Biomedical Equipment TechCommunications Engineering Technician 11/04/[address] [address] Physical Therapy 07/17/22 documented as of this encounter
--- OUTSIDE RECORDS SUMMARY | 2025-04-07 16:57 | XMS_ITS | Encounter Summary ---
Author Organization [employer] Address 75 [facility] 7t [place] [address] Care Team Providers Care Carry Out Clerk And Shelf Stocker Name Role Phone Kristy Wilder MD Primary Care Pro vider Bradly Gonzalez MD Unavailable Rk Smith Unavailable Buck Hess DPM Unavailable [phone] Rosanne Mosley Unavailable Reason for Visit * Reason Comments Med Refill Encounter Details Date Type Department Care Team (Late st Contact Info) Description 09/10/2023 Refill [facility] MEDICINE [address] [place], [place] [phone] Kristy Wilder MD 230 [place], [place] [phone] Type 2 diabetes mellitus with diabetic polyneuropathy, without long-term current use of insulin ([facility]) Social History Tobacco Use Types Packs/Day Years [...] [facility] [address] [place] [address] Yvonne Miller, OD 230 [place] [address] 04/27/2025 3:00 PM EST Office Visit [facility] ADULT DENTAL 505 [place] [address] Zi Lozano DDS 230 [place] [address] 05/10/2025 1:30 PM EST Clinical Support [facility] MEDICINE 230 [place] [address] 05/16/2025 2:00 PM EST Telemedicine [facility] MED & PEDS 505 [place] [address] Colette Diop, RN 505 [place] [address] documented as of this encounter Visit Diagnoses Diagnosis Type 2 diabetes mellitus with diabetic polyneuropathy, without long-term current use of insulin (HCC) documented in this encounter Additional Health Concerns Assessment Noted Time PHQ-9 Depression Total Score: 16 023 11:20 AM EDT documented as of this encounter Care Teams Carry Out Clerk And Shelf Stocker Relationship Specialty Start Date End Date Kristy Wilder MD [address] [place] [address] PCP - General Internal Medicine 12/26/22 Bradly Gonzalez MD [address] [place] [address] Vascular Surgery 07/17/22 Rk Smith [address] [place] [address] Otolaryngology 01/14/25 Buck Hess DPM 175 [facility] [address] [place] [address] Podiatry 01/14/25 Rosanne Mosley 03/28/25 Evita Hanna Surgery Scheduling CoordinatorMedical Logistics Specialist 11/04/[address] [address] Physical Therapy 07/17/22 documented as of this encounter
--- OUTSIDE RECORDS SUMMARY | 2025-04-07 16:57 | XMS_ITS | Encounter Summary ---
Author Organization [employer] Address 75 [facility] 7t [place] [address] Care Team Providers Care Lighting Equipment Operator Name Role Phone Kristy Wilder MD Primary Care Pro vider Bradly Gonzalez MD Unavailable Rk Smith Unavailable Buck Hess DPM Unavailable [phone] Rosanne Mosley Unavailable Reason for Visit * Reason Comments Med Refill Encounter Details Date Type Department Care Team (Late st Contact Info) Description 09/25/2023 Refill [facility] MEDICINE [address] [place], [place] [phone] Kristy Wilder MD [address] [place], [place] [phone] Primary insomnia Social History Tobacco Use Types [...] 2:30 PM EST Office Visit [facility] OPTOMETRY [address] [place] [address] Yvonne Miller, OD [address] [place] [address] 04/27/2025 3:00 PM EST Office Visit [facility] ADULT DENTAL [address] [place] [address] Zi Lozano DDS [address] [place] [address] 05/10/2025 1:30 PM EST Clinical Support [facility] MEDICINE [address] [place] [address] 05/16/2025 2:00 PM EST Telemedicine [facility] MED & PEDS [address] [place] [address] Colette Diop, BRICE [address] [place] [address] documented as of this encounter Visit Diagnoses Diagnosis Primary insomnia Persistent disorder of initiating or maintaining sleep documented in this encounter Additional Health Concerns Assessment Noted Time PHQ-9 Depression Total Score: 16 023 11:20 AM EDT documented as of this encounter Care Teams Lighting Equipment Operator Relationship Specialty Start Date End Date Kristy Wilder MD [address] [place] [address] PCP - General Internal Medicine 12/26/22 Bradly Gonzalez MD [address] [facility] [address] [place] [address] Vascular Surgery 07/17/22 Rk Smith 100 [facility] [address] [place] [address] Otolaryngology 01/14/25 Buck Hess DPM 175 [facility] [address] [place] [address] Podiatry 01/14/25 Rosanne Mosley 03/28/25 Evita Hanna Scrap Hoist OperatorCandy Butcher 11/04/24 [facility] [address] [place] [address] Physical Therapy 07/17/22 documented as of this encounter
--- OUTSIDE RECORDS SUMMARY | 2025-04-07 16:57 | XMS_ITS | Encounter Summary ---
Author Organization [employer] Address 75 [facility] 7t [place] [address] Care Team Providers Care Slot Router Name Role Phone Khloe Fonseca AIRPLANE TECHNICIAN Primary Care Provider Kristy Ring MD Primary Care Pro vider Bradly Gonzalez MD Unavailable Rk Smith Unavailable Buck Hess DPM Unavailable Rosanne Mosley Unavailable Encounter Details Date Type Department Care Team (Late Contact Info) Description 12/09/2022 Abstract [facility] MEDICINE 230 [place] [address] Khloe Fonseca FNP Social History Tobacco Use [...] [facility] OPTOMETRY [address] [place] [address] Yvonne Miller, OD 230 [place] [address] 04/27/2025 3:00 PM EST Office Visit [facility]C ADULT DENTAL [address] [place] [address] Zi Lozano DDS 230 [place] [address] 05/10/2025 1:30 PM EST Clinical Support [facility] MEDICINE 230 [place] [address] 05/16/2025 2:00 PM EST Telemedicine [facility] CHC MED & PEDS 505 [place] [address] Colette Diop, RN 505 [place] [address] documented as of this encounter Visit Diagnoses Not on filedocumented in this encounter Additional Health Concerns Assessment Noted Time PHQ-9 Depression Total Score: 11 022 1:16 PM EST documented as of this encounter Care Teams Slot Router Relationship Specialty Start Date End Date Khloe Fonseca FNP PCP - General Family Medicine 02/05/22 12/25/22 Kristy Wilder MD 230 [place] [address] PCP - General Internal Medicine 12/26/22 Bradly Gonzalez MD [address] [place] [address] Vascular Surgery 07/17/22 Rk Smith 100 [facility] [address] [place] [address] Otolaryngology 01/14/25 Buck Hess DPM 175 [facility] [address] [place] [address] Podiatry 01/14/25 Rosanne Mosley 03/28/25 Evita Hanna Hardness TesterGranite Setter 11/04/24 [facility] CORE [address] [place] [address] Physical Therapy 07/17/22 documented as of this encounter
--- OUTSIDE RECORDS SUMMARY | 2025-04-07 16:57 | XMS_ITS | Encounter Summary ---
Author Organization [employer] Address 75 [facility] 7t [place] [address] Care Team Providers Care Display Card Writer Name Role Phone Khloe Fonseca Primary Care Provider Kristy Ring MD Primary Care Pro vider Bradly Gonzalez MD Unavailable Rk Smith Unavailable Buck Hess DPM Unavailable [phone] Rosanne Mosley Unavailable Reason for Visit * Reason Onset Date Comments pt1 10/16/2022 Encounter Details Date Type Department Care Team (Late st Contact Info) Description 10/16/2022 Telephone [facility] MEDICINE [address] [place] [address] Khloe Fonseca FNP pt1 Social History Tobacco [...] Nannette Whittaker - 10/24/2022 10:19 AM EDT Engine Watchman called and left voicemail for pt stating Pt1 Request was approved and she may call to schedule * Telephone Encounter - Nannette Whittaker - 10/24/2022 10:17 AM EDT Patient will recieve approval / denial letter via mail. PT-1 Request [id number] Pending - [facility] Pulmonology [address] [place] [address] Dr [place] * Telephone Encounter - Eddie Sousa - 10/21/2022 10:14 AM EDT Tc from pt requesting status on PT1. Date: October 22, 2022 Time: 2:45 pm address:[address] [place] [address] specialty:Pulmonology Center # visits: strategic partnership specialist: no Wheelchair: no * Telephone Encounter - Marko Rodriguez - 10/16/2022 11:51 AM EDT Tc from pt requesting pt1 ride Date: october 22, 2022 Time: 2:45 pm address:[address] [place] [address] [place] [address] specialty:Pulmonology Center # visits: strategic partnership specialist: no Wheelchair: no documented in this encounter Plan of Treatment Upcoming Encounters Date Type Department Care Team (Late st Contact Info) Description 04/15/2025 2:30 PM EST Office Visit [facility] OPTOMETRY [address] [place] [address] Paul, Yvonne, OD 230 [place] [address] 04/27/2025 3:00 PM EST Office Visit [facility] CHC ADULT DENTAL [address] [place] [address] Zi Lozano, DDS 230 [place] [address] 05/10/2025 1:30 PM EST Clinical Support [facility] MEDICINE 230 [place] [address] 05/16/2025 2:00 PM EST Telemedicine [facility] CHC MED & PEDS [address] [place] [address] Colette Diop, RN [address] [place] [address] documented as of this encounter Visit Diagnoses Not on filedocumented in this encounter Additional Health Concerns Assessment Noted Time PHQ-9 Depression Total Score: 11 022 1:16 PM EST documented as of this encounter Care Teams Display Card Writer Relationship Specialty Start Date End Date Khloe Fonseca FNP PCP - General Family Medicine 02/05/22 12/25/22 Kristy Wilder MD 230 [place] [address] PCP - General Internal Medicine 12/26/22 Bradly Gonzalez MD [address] [facility] [place] [address] Vascular Surgery 07/17/22 Rk Smith 100 [facility] 100 [place] [address] Otolaryngology 01/14/25 Buck Hess DPM [address] [place] [address] 250 [place] [address] Podiatry 01/14/25 Rosanne Mosley 03/28/25 Evita Hanna BulldoggerOutside Machinist Apprentice 11/04/24 [facility] CORE [address] [place] [address] Physical Therapy 07/17/22 documented as of this encounter
--- OUTSIDE RECORDS SUMMARY | 2025-04-07 16:57 | XMS_ITS | Clinical Summary ---
Author Organization [facility] Address [address] [place] [address] Care Team Providers Care Line Construction Superintendent Name Role Phone Bryce Terrietaijuice Partha Primary Care Provider [phone] Allergies Active Allergy Reactions Criticality Noted Date [...] series) 2042 Medical Devices Implanted Type Area Garage Worker Device Identifier Shelf Expiration Date Model / Serial / Lot System Closure Suture Medicated Perclose Proglide 6fr - [id number] Implanted:Qty: 1 on 02/04/2019 at [facility] Implant [employer] [id number] 126 73-03 / / Coil Embolization Neurovascular [place] 0.035in [id number] Tornado - [id number] Implanted:Qty: 1 on 02/04/2019 at [facility] Implant [employer] [id number] 10/11/19 23 [id number] / / [id number] Coil Embolization Neurovascular [place] 0.035in [id number] Tornado - [id number] Implanted:Qty: 1 on 02/04/2019 at [facility] Implant [employer] [id number] 08/03/19 24 [id number] / / [id number] Coil Embolization Neurovascular [place] 0.035in [id number] Tornado - [id number] Implanted:Qty: 1 on 02/04/2019 at [facility] Implant [employer] [id number] 08/03/19 24 [id number] / / [id number] Coil Embolization Neurovascular [place] 0.035in [id number] Tornado - [id number] Implanted:Qty: 1 on 02/04/2019 at [facility] Implant [employer] [id number] 08/03/19 24 [id number] / / [id number] Insurance [facility] Care Teams Line Construction Superintendent Relationship Specialty Start Date End Date Davon Wu [address] [place] [address] PCP - General Internal Medicine 09/28/18
--- OUTSIDE RECORDS SUMMARY | 2025-04-07 16:57 | XMS_ITS | Encounter Summary ---
Author Organization [employer] Address 75 [facility] 7t [place] [address] Care Team Providers Care Decorating Inspector Name Role Phone Kristy Wilder MD Primary Care Pro vider Bradly Gonzalez MD Unavailable Rk Smith Unavailable Buck Hess DPM Unavailable [phone] Rosanne Mosley Unavailable Reason for Visit * Reason Comments Med Refill Encounter Details Date Type Department Care Team (Late st Contact Info) Description 04/04/2025 Refill [facility] MEDICINE 230 [place], [place] [phone] Kristy Wilder MD [address] [place] [address] Type 2 diabetes mellitus with other specified complication, without long-term current use of insulin (HCC) Social History Tobacco Use Types Packs/Day Years [...] got money to buy more: Sometimes True 04/14/ 2025 Within the past 12 months,th e food [...] 2:30 PM EST Office Visit [facility] OPTOMETRY [address] [place] [address] Yvonne Miller, OD 230 [place] [address] 04/27/2025 3:00 PM EST Office Visit [facility] ADULT DENTAL 505 [place] [address] Zi Lozano DDS 230 [place] [address] 05/10/2025 1:30 PM EST Clinical Support [facility] MEDICINE 230 [place] [address] 05/16/2025 2:00 PM EST Telemedicine [facility] MED & PEDS 505 [place] [address] Colette Diop, BRICE 505 [place] [address] documented as of this encounter Visit Diagnoses Diagnosis Type 2 diabetes mellitus with other specified complication, without long-term current use of insulin (HCC) documented in this encounter Additional Health Concerns Assessment Noted Time PHQ-9 Depression Total Score: 14 03/08/ 025 11:30 AM EDT documented as of this encounter Care Teams Decorating Inspector Relationship Specialty Start Date End Date Kristy Wilder MD [address] [place] [address] PCP - General Internal Medicine 12/26/22 Bradly Gonzalez MD [address] [place] [address] Vascular Surgery 07/17/22 Rk Smith 100 [facility] [address] [place] [address] Otolaryngology 01/14/25 Buck Hess DPM 175 [facility] [address] [place] [address] Podiatry 01/14/25 Rosanne Mosley 03/28/25 Evita Hanna Plaster MolderElectrician Constructor Supervisor 11/04/[address] [address] Physical Therapy 07/17/22 documented as of this encounter
--- OUTSIDE RECORDS SUMMARY | 2025-04-07 16:57 | XMS_ITS | Encounter Summary ---
Author Organization [employer] Address 75 [facility] 7t [place] [address] Care Team Providers Care Lens Molding Equipment Operator Name Role Phone Kristy Wilder MD Primary Care Pro vider Bradly Gonzalez MD Unavailable Rk Smith Unavailable Buck Hess DPM Unavailable [phone] Rosanne Mosley Unavailable Reason for Visit * [...] (Late st Contact Info) Description 02/11/2023 Refill [facility] MEDICINE [address] [place] [phone] Kristy Wilder MD 230 [place], [place] [phone] Primary insomnia; Chronic low back pain, unspecified [...] Description 04/15/2025 2:30 PM EST Office Visit [facility] OPTOMETRY 267 [place] [address] Yvonne Miller, OD 230 [place] [address] 04/27/2025 3:00 PM EST Office Visit [facility] ADULT DENTAL 505 [place] [address] Zi Lozano DDS 230 [place] [address] 05/10/2025 1:30 PM EST Clinical Support [facility] MEDICINE 230 [place] [address] 05/16/2025 2:00 PM EST Telemedicine [facility] MED & PEDS 505 [place] [address] Colette Diop, RN 505 [place] [address] documented as of this encounter Visit Diagnoses Diagnosis Primary insomnia Persistent disorder of initiating or maintaining sleep Chronic low back pain, unspecified back pain laterality, unspecified whether sciatica present documented in this encounter Additional Health Concerns Assessment Noted Time PHQ-9 Depression Total Score: 11 022 1:16 PM EST documented as of this encounter Care Teams Lens Molding Equipment Operator Relationship Specialty Start Date End Date Kristy Wilder MD 230 [place] [address] PCP - General Internal Medicine 12/26/22 Bradly Gonzalez MD [address] [place] [address] Vascular Surgery 07/17/22 Rk Smith 100 [facility] [address] [place] [address] Otolaryngology 01/14/25 Buck Hess DPM 175 [facility] [address] [place] [address] Podiatry 01/14/25 Rosanne Mosley 03/28/25 Evita Hanna Manager Business ManagementAirline Stewardess 11/04/24 [facility] CORE [address] [place] [address] Physical Therapy 07/17/22 documented as of this encounter
--- OUTSIDE RECORDS SUMMARY | 2025-04-07 16:57 | XMS_ITS | Clinical Summary ---
Author Organization [facility] Address [address] [place] [address] Care Team Providers Care Science And Operations Officer Name Role Phone Unavailable Primary Care Provider [...] PM EDT Behavioral Health Visit [facility] [address] [place] [address] RUFUS MEDEROS [phone] Tono Zelaya, NOVAHNAlan from Last 3 Months [...] history exists Hepatitis C Screening Completed 12/22/2024 [id number] Completed 03/08/2025, 11/2021, 05/27/2021, Additional history exists Imm-Influenza Completed 03/08/2025, 08/2022, 05/14/2022, Additional history exists Cervical Ablation/Cold-Knife Conization Discontinued Cervical Cryotherapy Discontinued Colposcopy Discontinued Excision/Leep Discontinued HPV Genotyping Discontinued Vaginal Pap Discontinued Vulvoscopy Discontinued Insurance [place] [employer]
--- OUTSIDE RECORDS SUMMARY | 2025-04-07 16:57 | XMS_ITS | Encounter Summary ---
Author Organization [employer] Address 75 [facility] 7 [place] [address] Care Team Providers Care Loop Sewer Name Role Phone Kristy Wilder MD Primary Care Pro vider Bradly Gonzalez MD Unavailable Rk Smith Unavailable Buck Hess DPM Unavailable [phone] Rosanne Mosley Unavailable Reason for Visit * Reason Onset Date Comments Nurse Triage 08/08/2023 Encounter Details Date Type Department Care Team (Late st Contact Info) Description 08/08/2023 Telephone [facility] MEDICINE [address] [place], [place] [phone] Kristy Wilder MD 230 [place], [place] [phone] Nurse Triage Social History Tobacco Use Types [...] EST Triage call returned to patient with Wedding Spot Recreation Instructor [id number]. Patient with soft voice and weakness. Received [...] accepted this outcome Please contact pt at [phone] (Macedonian) documented in this encounter Plan of Treatment Upcoming Encounters Date Type Department Care Team (Late st Contact Info) Description 04/15/2025 2:30 PM EST Office Visit [facility] OPTOMETRY 267 [place] [address] Yvonne Miller, OD 230 [place] [address] 04/27/2025 3:00 PM EST Office Visit [facility] ADULT DENTAL 505 [place] [address] Zi Lozano DDS 230 [place] [address] 05/10/2025 1:30 PM EST Clinical Support [facility] MEDICINE [address] [place] [address] 05/16/2025 2:00 PM EST Telemedicine [facility] MED & PEDS 505 [place] [address] Colette Diop, RN 505 [place] [address] documented as of this encounter Visit Diagnoses Not on filedocumented in this encounter Additional Health Concerns Assessment Noted Time PHQ-9 Depression Total Score: 16 023 11:20 AM EDT documented as of this encounter Care Teams Loop Sewer Relationship Specialty Start Date End Date Kristy Wilder MD 230 [place] [address] PCP - General Internal Medicine 12/26/22 Bradly Gonzalez MD [address] [place] [address] Vascular Surgery 07/17/22 Rk Smith [address] [place] [address] Otolaryngology 01/14/25 Buck Hess DPM 175 [facility] [address] [place] [address] Podiatry 01/14/25 Rosanne Mosley 03/28/25 Evita Hanna Turning Machine Set Up OperatorForging Operator 11/04/24 [facility] CORE [address] [place] [address] Physical Therapy 07/17/22 documented as of this encounter
--- OUTSIDE RECORDS SUMMARY | 2025-04-07 16:57 | XMS_ITS | Encounter Summary ---
Author Organization [employer] Address 75 [facility] 7t [place] [address] Care Team Providers Care Electronic Health Records Specialist Name Role Phone Khloe Fonseca METAL BASE BLOCKER Primary Care Provider Kristy Ring MD Primary Care Pro vider Bradly Gonzalez MD Unavailable Rk Smith Unavailable Buck Hess DPM Unavailable [phone] Rosanne Mosley Unavailable Reason for Visit * Reason Onset Date Comments OTHER 12/24/2022 Encounter Details Date Type Department Care Team (Late st Contact Info) Description 12/24/2022 Telephone [facility] MEDICINE [address] [place] [address] Khloe Fonseca FNP OTHER Social History Tobacco [...] To clarify, please contact pt sister at [phone] documented in this encounter Plan of Treatment Upcoming Encounters Date Type Department Care Team (Late st Contact Info) Description 04/15/2025 2:30 PM EST Office Visit [facility] OPTOMETRY [address] [place] [address] PaulYvonne marlow, OD 230 [place] [address] 04/27/2025 3:00 PM EST Office Visit [facility] ADULT DENTAL 505 [place] [address] Zi Lozano DDS 230 [place] [address] 05/10/2025 1:30 PM EST Clinical Support [facility] MEDICINE 230 [place] [address] 05/16/2025 2:00 PM EST Telemedicine [facility] MED & PEDS 505 [place] [address] Colette Diop, BRICE 505 [place] [address] documented as of this encounter Visit Diagnoses Not on filedocumented in this encounter Additional Health Concerns Assessment Noted Time PHQ-9 Depression Total Score: 11 022 1:16 PM EST documented as of this encounter Care Teams Electronic Health Records Specialist Relationship Specialty Start Date End Date Khloe Fonseca FNP PCP - General Family Medicine 02/05/22 12/25/22 Kristy Wilder MD 230 [place] [address] PCP - General Internal Medicine 12/26/22 Bradly Gonzalez MD [address] [place] [address] Vascular Surgery 07/17/22 Rk Smith 100 [facility] [address] [place] [address] Otolaryngology 01/14/25 Buck Hess DPM [address] [place] [address] Podiatry 01/14/25 Rosanne Mosley 03/28/25 Evita Hanna Hospice ChaplainPlastic Sewer 11/04/[address] [address] Physical Therapy 07/17/22 documented as of this encounter
--- OUTSIDE RECORDS SUMMARY | 2025-04-07 16:57 | XMS_ITS | Encounter Summary ---
Author Organization [employer] Address 75 [facility] 7 [place] [address] Care Team Providers Care Nylon Winder Name Role Phone Kristy Wilder MD Primary Care Pro vider Bradly Gonzalez MD Unavailable Rk Smith Unavailable Buck Hess DPM Unavailable [phone] Rosanne Mosley Unavailable Reason for Visit * Reason Onset Date Comments PT-1 12/31/2024 Encounter Details Date Type Department Care Team ([facility] st Contact Info) Description 12/31/2024 Telephone [facility] MEDICINE 230 [place], [place] [phone] Kristy Wilder MD 230 [place], [place] [phone] PT-1 Social History Tobacco Use Types Packs/Day [...] Y/N: Yes Provider name or facility name: [facility] Facility Address: [address] [place] [address] Escort needed: Y/N: Yes Do you have a wheelchair: Y/N: No If yes- Manual or electric: N/A Visits: 3 times a month documented in this encounter Plan of Treatment Upcoming Encounters Date Type Department Care Team (Late st Contact Info) Description 04/15/2025 2:30 PM EST Office Visit [facility] OPTOMETRY [address] [place] [address] Yvonne Miller, OD 230 [place] [address] 04/27/2025 3:00 PM EST Office Visit [facility] CHC ADULT DENTAL [address] [place] [address] Zi Lozano DDS 230 [place] [address] 05/10/2025 1:30 PM EST Clinical Support [facility] MEDICINE 230 [place] [address] 05/16/2025 2:00 PM EST Telemedicine [facility] CHC MED & PEDS [address] [place] [address] Colette Diop, RN [address] [place] [address] documented as of this encounter Visit Diagnoses Not on filedocumented in this encounter Additional Health Concerns Assessment Noted Time PHQ-9 Depression Total Score: 16 025 2:11 PM EDT documented as of this encounter Care Teams Nylon Winder Relationship Specialty Start Date End Date Kristy Wilder MD 230 [place] [address] PCP - General Internal Medicine 12/26/22 Bradly Gonzalez MD [address] [facility] [address] [place] [address] Vascular Surgery 07/17/22 Rk Smith 100 [facility] [address] [place] [address] Otolaryngology 01/14/25 Buck Hess DPM [address] [place] [address] 250 [place] [address] Podiatry 01/14/25 Rosanne Mosley 03/28/25 Evita Hanna Top Precipitator Operator HelperPathology Laboratory Technologist 11/04/24 [facility] [address] [place] [address] Physical Therapy 07/17/22 documented as of this encounter
--- OUTSIDE RECORDS SUMMARY | 2025-04-07 16:58 | XMS_ITS ---
Author Organization [facility] Address [address] [place] [address] Care Team Providers Care Plastics Patternmaker Name Role Phone Davon Wu Primary Care Provider [phone] Active Problems Problem Noted Date Diagnosed Date [...]
--- OUTSIDE RECORDS SUMMARY | 2025-04-30 20:00 | XMS_ITS | Clinical Summary ---
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 Care Rrt Name Role Phone ANDREINA MENCHACA, CLARENCE Unavailable Unavailable TATI NARVAEZ, ALBERTA Unavailable Unavailable Payers Payer Name Policy Type Policy Number Effective Date Expira tion Date MEDICAID [facility] [id number] Problems Condition Name Condition Details Condition Category [...] 06-25 00:00: 00 09-01 23:59 :00 No [id number] 5 mg BEDTIME 5 mg BEDTIME (route: oral) Med Classific ation: Central Nervous System Agents buspirone 7.5 mg tablet 06-25 00:00: 00 09-01 23:59 :00 No [id number] 7.5 mg 2 TIMES DAILY 7.5 mg 2 TIMES DAILY (route: oral) Med Classific ation: Central Nervous System Agents Eliquis 5 mg tablet 06-25 00:00: 00 09-01 23:59 :00 No [id number] 5 mg 2 TIMES DAILY 5 mg 2 TIMES DAILY (route: oral) Med Classific ation: Hematolog ical Agents famotidine 20 mg tablet 06-25 00:00: 00 09-01 23:59 :00 No [id number] 20 mg 2 TIMES DAILY 20 mg 2 TIMES DAILY (route: oral) Med Classific ation: Gastroint estinal Therapy Agents levothyroxi ne 112 mcg tablet 06-25 00:00: 00 09-01 23:59 :00 No [id number] 112 mcg EVERY AM 112 mcg EVERY AM (route: oral) Med Classific ation: Endocrine losartan 25 mg tablet 06-25 00:00: 00 09-01 23:59 :00 No [id number] 25 mg NOON 25 mg NOON (route: oral) Med Classific ation: Cardiovas cular Therapy Agents metformin 500 mg tablet 06-25 00:00: 00 09-01 23:59 :00 No [id number] 500 mg DIRECTED 500 mg DIRECTED (route: oral) Med Classific ation: Endocrine mirtazapine 7.5 mg tablet 06-25 00:00: 00 09-01 23:59 :00 No [id number] 7.5 mg BEDTIME 7.5 mg BEDTIME (route: oral) Med Classific ation: Central Nervous System Agents Narcan 4 mg/actuatio n nasal spray 06-25 00:00: 00 09-01 23:59 :00 No [id number] 2 spray DIRECTED 2 spray DIRECTED (route: nasal) Med Classific ation: Antidotes and other Reversal Agents ondansetron 4 mg disintegrat ing tablet 06-25 00:00: 00 09-01 23:59 :00 No [id number] 4 mg EVERY 8 HOURS 4 mg EVERY 8 HOURS (route: oral) Med Classific ation: Gastroint estinal Therapy Agents oxycodone 5 mg tablet 06-25 00:00: 00 09-01 23:59 :00 No [id number] 5 mg EVERY 12 HOURS 5 mg EVERY 12 HOURS (route: oral) Med Classific ation: Analgesic , Anti-infl ammatory or Antipyret ic propranolol 10 mg tablet 06-25 00:00: 00 09-01 23:59 :00 No [id number] 17 mg 2 TIMES DAILY 17 mg 2 TIMES DAILY (route: oral) Med Classific ation: Cardiovas cular Therapy Agents sertraline 100 mg tablet 06-25 00:00: 00 09-01 23:59 :00 No [id number] 100 mg NOON 100 mg NOON (route: oral) Med Classific ation: Central Nervous System Agents buspirone 10 mg tablet 09-05 00:00: 00 Yes [id number] 1 tablet 2 TIMES DAILY 1 tablet 2 TIMES DAILY (route: oral) Med Classific ation: Central Nervous System Agents Colace 100 mg capsule 09-04 00:00: 00 Yes [id number] 1 capsule BEDTIME 1 capsule BEDTIME (route: oral) Med Classific ation: Gastroint estinal Therapy Agents Eliquis 5 mg tablet 09-04 00:00: 00 Yes [id number] 1 tablet 2 TIMES DAILY 1 tablet 2 TIMES DAILY (route: oral) Med Classific ation: Hematolog ical Agents levothyroxi ne 112 mcg tablet 09-04 00:00: 00 Yes [id number] 1 tablet EVERY AM 1 tablet EVERY AM (route: oral) Med Classific ation: Endocrine losartan 25 mg tablet 09-04 00:00: 00 Yes [id number] 1 tablet NOON 1 tablet NOON (route: oral) Med Classific ation: Cardiovas cular Therapy Agents metformin 500 mg tablet 09-04 00:00: 00 Yes [id number] 1 tablet EVERY AM 1 tablet EVERY AM (route: oral) Med Classific ation: Endocrine metformin 500 mg tablet 09-05 00:00: 00 Yes [id number] 2 tablet EVERY PM 2 tablet EVERY PM (route: oral) Med Classific ation: Endocrine Pepcid 20 mg tablet 09-04 00:00: 00 Yes [id number] 1 tablet 2 TIMES DAILY 1 tablet 2 TIMES DAILY (route: oral) Med Classific ation: Gastroint estinal Therapy Agents propranolol 10 mg tablet 09-04 00:00: 00 Yes [id number] 1 tablet 2 TIMES DAILY 1 tablet 2 TIMES DAILY (route: oral) Med Classific ation: Cardiovas cular Therapy Agents sertraline 100 mg tablet 09-04 00:00: 00 Yes [id number] 1 tablet NOON 1 tablet NOON (route: oral) Med Classific ation: Central Nervous System Agents mirtazapine 45 mg tablet 09-04 00:00: 00 Yes [id number] 1 tablet BEDTIME 1 tablet BEDTIME (route: oral) Med Classific ation: Central Nervous System Agents hydroxyzine HCl 10 mg tablet 09-04 00:00: 00 Yes [id number] 1-2 tablet 2 TIMES DAILY 1-2 tablet 2 TIMES DAILY (route: oral) Med Classific ation: Central Nervous System Agents Vital Signs Vital Name Observation Time Observation Value Commen ts Temperature 2025-04-02 14:09:00.000 97.3 [degF] Temperature 2025-03-21 16:30:00.000 96.8 [degF] Temperature 2025-03-14 17:28:00.000 96.7 [degF] Temperature 2025-03-09 15:51:00.000 97.2 [degF] Pulse 2025-04-02 14:09:00.000 88 /min Pulse 2025-03-21 16:30:00.000 80 /min Pulse 2025-03-14 17:31:00.000 70 /min Pulse 2025-03-09 15:51:00.000 68 /min O2 Saturation (%) 2025-04-02 14:09:00.000 97 % O2 Saturation (%) 2025-03-21 16:30:00.000 98 % O2 Saturation (%) 2025-03-14 17:31:00.000 96 % O2 Saturation (%) 2025-03-09 15:51:00.000 98 % Respirations 2025-04-02 14:09:00.000 16 /min Respirations 2025-03-21 16:30:00.000 16 /min Respirations 2025-03-14 17:28:00.000 16 /min Respirations 2025-03-09 15:51:00.000 16 /min Systolic Blood Pressure 2025-04-02 14:09:00.000 109 mm [Hg] Systolic Blood Pressure 2025-03-21 16:30:00.000 132 mm [Hg] Systolic Blood Pressure 2025-03-14 17:28:00.000 98 mm[ Hg] Systolic Blood Pressure 2025-03-09 15:51:00.000 114 mm [Hg] Diastolic Blood Pressure 2025-04-02 14:09:00.000 [...] AWARENESS FOR SAFETY AND WILL NOTIFY CLINICAL STAINLESS STEEL FINISHER AND PHYSICIAN/PROVIDER WITH ANY CHANGE IN CONDITION. [code = SKILLED NURSE WILL MAINTAIN SITUATIONAL AWARENESS FOR SAFETY AND WILL NOTIFY CLINICAL STAINLESS STEEL FINISHER AND PHYSICIAN/PROVIDER WITH ANY CHANGE IN CONDITION.] [...] 2025-05-01 00:00:00 Outpatient RECERTIFIC ATION ALBERTA DUFFY [facility] [id number] 0.00
--- OUTSIDE RECORDS SUMMARY | 2025-04-30 20:00 | XMS_ITS | Clinical Summary ---
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 Care Tuber Machine Cutter Name Role Phone ANDREINA MENCHACA, CLARENCE Unavailable Unavailable TATI NARVAEZ, ALBERTA Unavailable Unavailable Payers Payer Name Policy Type Policy Number Effective Date Expira tion Date MEDICAID [facility] [id number] Problems Condition Name Condition Details Condition Category [...] 06-25 00:00: 00 09-01 23:59 :00 No [id number] 5 mg BEDTIME 5 mg BEDTIME (route: oral) Med Classific ation: Central Nervous System Agents buspirone 7.5 mg tablet 06-25 00:00: 00 09-01 23:59 :00 No [id number] 7.5 mg 2 TIMES DAILY 7.5 mg 2 TIMES DAILY (route: oral) Med Classific ation: Central Nervous System Agents Eliquis 5 mg tablet 06-25 00:00: 00 09-01 23:59 :00 No [id number] 5 mg 2 TIMES DAILY 5 mg 2 TIMES DAILY (route: oral) Med Classific ation: Hematolog ical Agents famotidine 20 mg tablet 06-25 00:00: 00 09-01 23:59 :00 No [id number] 20 mg 2 TIMES DAILY 20 mg 2 TIMES DAILY (route: oral) Med Classific ation: Gastroint estinal Therapy Agents levothyroxi ne 112 mcg tablet 06-25 00:00: 00 09-01 23:59 :00 No [id number] 112 mcg EVERY AM 112 mcg EVERY AM (route: oral) Med Classific ation: Endocrine losartan 25 mg tablet 06-25 00:00: 00 09-01 23:59 :00 No [id number] 25 mg NOON 25 mg NOON (route: oral) Med Classific ation: Cardiovas cular Therapy Agents metformin 500 mg tablet 06-25 00:00: 00 09-01 23:59 :00 No [id number] 500 mg DIRECTED 500 mg DIRECTED (route: oral) Med Classific ation: Endocrine mirtazapine 7.5 mg tablet 06-25 00:00: 00 09-01 23:59 :00 No [id number] 7.5 mg BEDTIME 7.5 mg BEDTIME (route: oral) Med Classific ation: Central Nervous System Agents Narcan 4 mg/actuatio n nasal spray 06-25 00:00: 00 09-01 23:59 :00 No [id number] 2 spray DIRECTED 2 spray DIRECTED (route: nasal) Med Classific ation: Antidotes and other Reversal Agents ondansetron 4 mg disintegrat ing tablet 06-25 00:00: 00 09-01 23:59 :00 No [id number] 4 mg EVERY 8 HOURS 4 mg EVERY 8 HOURS (route: oral) Med Classific ation: Gastroint estinal Therapy Agents oxycodone 5 mg tablet 06-25 00:00: 00 09-01 23:59 :00 No [id number] 5 mg EVERY 12 HOURS 5 mg EVERY 12 HOURS (route: oral) Med Classific ation: Analgesic , Anti-infl ammatory or Antipyret ic propranolol 10 mg tablet 06-25 00:00: 00 09-01 23:59 :00 No [id number] 17 mg 2 TIMES DAILY 17 mg 2 TIMES DAILY (route: oral) Med Classific ation: Cardiovas cular Therapy Agents sertraline 100 mg tablet 06-25 00:00: 00 09-01 23:59 :00 No [id number] 100 mg NOON 100 mg NOON (route: oral) Med Classific ation: Central Nervous System Agents buspirone 10 mg tablet 09-05 00:00: 00 Yes [id number] 1 tablet 2 TIMES DAILY 1 tablet 2 TIMES DAILY (route: oral) Med Classific ation: Central Nervous System Agents Colace 100 mg capsule 09-04 00:00: 00 Yes [id number] 1 capsule BEDTIME 1 capsule BEDTIME (route: oral) Med Classific ation: Gastroint estinal Therapy Agents Eliquis 5 mg tablet 09-04 00:00: 00 Yes [id number] 1 tablet 2 TIMES DAILY 1 tablet 2 TIMES DAILY (route: oral) Med Classific ation: Hematolog ical Agents levothyroxi ne 112 mcg tablet 09-04 00:00: 00 Yes [id number] 1 tablet EVERY AM 1 tablet EVERY AM (route: oral) Med Classific ation: Endocrine losartan 25 mg tablet 09-04 00:00: 00 Yes [id number] 1 tablet NOON 1 tablet NOON (route: oral) Med Classific ation: Cardiovas cular Therapy Agents metformin 500 mg tablet 09-04 00:00: 00 Yes [id number] 1 tablet EVERY AM 1 tablet EVERY AM (route: oral) Med Classific ation: Endocrine metformin 500 mg tablet 09-05 00:00: 00 Yes [id number] 2 tablet EVERY PM 2 tablet EVERY PM (route: oral) Med Classific ation: Endocrine Pepcid 20 mg tablet 09-04 00:00: 00 Yes [id number] 1 tablet 2 TIMES DAILY 1 tablet 2 TIMES DAILY (route: oral) Med Classific ation: Gastroint estinal Therapy Agents propranolol 10 mg tablet 09-04 00:00: 00 Yes [id number] 1 tablet 2 TIMES DAILY 1 tablet 2 TIMES DAILY (route: oral) Med Classific ation: Cardiovas cular Therapy Agents sertraline 100 mg tablet 09-04 00:00: 00 Yes [id number] 1 tablet NOON 1 tablet NOON (route: oral) Med Classific ation: Central Nervous System Agents mirtazapine 45 mg tablet 09-04 00:00: 00 Yes [id number] 1 tablet BEDTIME 1 tablet BEDTIME (route: oral) Med Classific ation: Central Nervous System Agents hydroxyzine HCl 10 mg tablet 09-04 00:00: 00 Yes [id number] 1-2 tablet 2 TIMES DAILY 1-2 tablet [...] AWARENESS FOR SAFETY AND WILL NOTIFY CLINICAL HEALTH INFORMATICS SPECIALIST AND PHYSICIAN/PROVIDER WITH ANY CHANGE IN CONDITION. [code = SKILLED NURSE WILL MAINTAIN SITUATIONAL AWARENESS FOR SAFETY AND WILL NOTIFY CLINICAL HEALTH INFORMATICS SPECIALIST AND PHYSICIAN/PROVIDER WITH ANY CHANGE IN CONDITION.] Goal Patient Goal - TO SLEEP BETT ER Goal 2024-10-29 Patient Goal - TO SLEEP BETT ER Goal 2025-02-28 Patient Goal - TO SLEEP BETT ER Goal 2024-12-31 Patient Goal - TO SLEEP BETT ER Goal Provider Goal - A PLAN OF CARE WILL BE ESTABLISHED THAT MEETS PATIENT'S HALFWAY NEEDS AND INCLUDES PATIENT GOAL FOR HOME [...] End Date/Time Encounter Type Admission Type [facility]ending [facility] Care Department Encounter ID Discharge Date Discharge Status Discharge Condition Discharge Reason Percent Goals Met 2025-03-03 00:00:00 2025-05-01 00:00:00 Outpatient RECERTIFIC ATION ALBERTA DUFFY [facility] [id number] 0.00
== END 2025-04-07 14:25 | disposition home or self-care (01) ==
LOC: HO.HVS 13:56
PROVIDERS: PCP Student in an Organized Health Care Education/Training Program; Visit Provider Surgery Vascular Surgery
DX: I83.11 Varicose veins of right lower extremity with inflammation (principal); Z95.828 Presence of other vascular implants and grafts
CPT/HCPCS: 99214

== ENCOUNTER → 2025-04-07 13:55 | Outpatient (BNVA) | payer MEDICAID, SELFPAY | PROVIDERS: PCP Student in an Organized Health Care Education/Training Program; Visit Provider Surgery Vascular Surgery | DX: I83.11 Varicose veins of right lower extremity with inflammation (principal); C64.1 Malignant neoplasm of right kidney, except renal pelvis; Z95.828 Presence of other vascular implants and grafts | CPT/HCPCS: 99212 ==

== ENCOUNTER 2025-04-12 12:57 | Outpatient (AMB) | payer MEDICAID, SELFPAY ==
[2025-04-12 12:59] VITALS: BP 110/60; PULSE 60; O2SAT 99; BMI 30.3
--- NOTE | 2025-04-12 12:59 | A.OFFVIS_ITS ---
Vital Signs 04/12/25 12:59 Height 5 ft 5 in Weight 181 lb 14.102 oz BMI 30.3 BP 110/60 Blood Pressure Location Lt brachial Position Sitting Pulse 60 Pulse Source Pulse Oximeter Pulse Oximetry (%) 99 Oxygen Delivery Method Room Air Intake Visit Reasons: Pulmonary Nodules Marketing Lead Required: Yes Marketing Lead Services: Marketing Lead Offered & Declined Marketing Lead Name: MD speaks bahraini Accompanied by: Self / Same As Patient Allergies phenylephrine (From CONTAC-D COLD (PE)) Allergy (Unknown, Verified 04/12/25 13:02) EDEMA morphine Allergy (Verified 04/12/25 13:02) Rash Contac-D Allergy (Unknown, Uncoded 03/17/25 13:31) Unknown HPI Comments Details: The patient is a 59 year woman with a known history of renal cell carcinoma diagnosed back in 2019 status post nephrectomy it was grade 3. She was also placed on sutent. Daily the patient has been complaining of increasing fatigue and daytime drowsiness. She was also recently diagnosed with hypothyroidism and starting a small dose of levothyroxine. Back in June 20252022 the patient had a CT scan of the abdomen and chest which I personally reviewed. The patient had multiple pulmonary nodules which appear to be solid well-circumscribed primarily in the bases bilaterally as well as peripheral. Also noted during that CT scan I did appreciate also some areas of mosaic pattern suggesting the possibility of airways disease. She did have her repeat chest x-ray 07/07/2022 which I personally reviewed now her pulmonary nodules appear to be little larger in size in appearance. She has new nodules and also in a peripheral distribution primarily at the bases which is always concerning for a hematogenous spread in process. The nodules are indeed concerning for a malignant process. The nodules are almost 8 mm in size based on my measurements. I did speak to Radiology regarding a CT-guided biopsy in although be difficult it is approachable. I will request a CT-guided biopsy at this time. 04/15/2024 the patient is here for a pulmonary follow-up visit. Overall she is doing well. She continues on immune therapy for her metastatic cancer. She seems to be tolerating it well though she has had issues with ulcerations in her mouth and then rashes. Likely result of the immune therapy. The patient otherwise has been breathing well. Denies any cough chest pain shortness of breath. Denies any wheezing. We did review her recent CT scan of the chest that was done 03/28/2024. No evidence of any pneumonitis note interstitial lung disease. Her pulmonary nodules drastically improved. Now she just has subcentimeter pulmonary nodule best appreciated on the left side. Otherwise patient is doing well will follow-up in a year's time. 04/12/2025 the patient is here for pulmonary follow-up visit. Overall the patient has been doing well. She did have a CT scan of the chest in December 2024 demonstrating that her pulmonary nodules have either resolved or stable. Overall reassuring. Decision was to hold all immune therapy. The patient has been now with the immune therapy. She is concerned about her nodules because she does not want them to come back. She is scheduled for the CAT scan. She has not had it as of yet. Breathing beaver the patient is doing well denies any shortness of breath denies any other complaints. She did have an episode of a suicide attempt where she overdosed on medications. She was admitted to psychiatry, now she is stable and she is on mood stabilizers. Overall doing better. [facility] Medical History (Updated 04/12/25 @ 19:07 by Russ Travis MD) Chronic allergic rhinitis Pulmonary nodules Right renal mass Anxiety Depression Clear cell carcinoma of right kidney Surgical History Hx of colonoscopy History of esophagogastroduodenoscopy (EGD) S/P skin biopsy Status post hysterectomy Family History Maternal Uncle Stomach cancer Maternal Aunt Stomach cancer Paternal Aunt Colon cancer Sister Liver cancer Sister Skin cancer Social History Household Members: None Housing: Apartment Are you a primary acute care nurse practitioner to a significant other at home: No Do you presently have visiting nurse or other home services: Yes Alcohol intake: former Patient Tobacco Use Status: Never used Tobacco service: No Current occupational status: unemployed Sexual orientation: Straight/Heterosexual Review of Systems Const Reports fatigue and Denies fever(s) Eyes Denies change in vision ENT Denies change in voice, Reports nasal congestion, Reports nasal discharge and Reports post nasal drip Card Denies chest pain and Denies dyspnea on exertion Resp Denies dyspnea on exertion and Denies wheezing Musc Reports no additional complaints Skin/Breast Reports rash Neuro Reports no additional complaints Psych Reports no additional complaints Endo Reports fatigue Lyle/Lymph Denies easy bruising and Denies lymphadenopathy Aller/Immun Denies wheezing Physical Exam Vital Signs: Last Vital Signs Pulse 60 04/12/25 12:59 BP 110/60 04/12/25 12:59 Pulse Ox 99 04/12/25 12:59 Oxygen Delivery Method Room Air 04/12/25 12:59 BMI result Body Mass Index 30.3 Const General: comfortable HEENT Head: Yes normocephalic Neck Neck: Yes supple Chest Chest palpation & inspection: normal inspection of the chest Resp Effort & Inspection: normal respiratory effort Auscultation: clear to auscultation bilaterally Cardio Rate: regular rate Rhythm: regular rhythm Heart sounds: S1 normal heart sound present and S2 normal heart sound present GI Palpation (GI): Soft to palpation Skin General skin exam: no rashes or lesions noted Assessment & Plan Assessment & Plan (1) Pulmonary nodules: Code(s): R91.8 - Other nonspecific abnormal finding of lung field Category: Medical (2) Clear cell carcinoma of right kidney: Comment: status post nephrectomy, at [facility] in January. 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 Marilyn grade 3. Stage IIIA, with renal vein extention. Stutent started on June 17. Code(s): C64.1 - Malignant neoplasm of right kidney, except renal pelvis Category: Medical (3) Chronic allergic rhinitis: Code(s): J30.9 - Allergic rhinitis, unspecified Category: Medical Plan start Astelin/fluicasone nasal spray start Claritin Serial CT chest immune therapy on hold F/U in 1 yr Medications: New azelastine administer into each nostril 2 sprays intranasal BID 30 mL 6RF 30 days loratadine (Allergy Relief (loratadine)) 10 mg PO DAILY 30 tabs 5RF 30 days fluticasone propionate 50 mcg/actuation 2 sprays intranasal DAILY 15.8 mL 11RF 30 days J31.0 - Chronic rhinitis Coding Level of Care Code Est Pt Level 4 (32461) Complex EM visit Add On G2211 Diagnoses Pulmonary nodules R91.8 Clear cell carcinoma of right kidney C64.1 Chronic allergic rhinitis J30.9 Time Spent (min) 17
--- OUTSIDE RECORDS SUMMARY | 2025-04-12 15:35 | XMS_ITS | Encounter Summary ---
Author Organization [facility] [employer] Address [address] [address] [place] [address] Care Team Providers Care Color Expert Name Role Phone Kristy Wilder MD Primary Care Pro vider Bradly Gonzalez MD Unavailable Rk Smith Unavailable Buck Hess DPM Unavailable [phone] Rosanne Mosley Unavailable Reason for Visit * Reason Onset Date Comments Reschedule 07/07/2023 Encounter Details Date Type Department Care Team ([facility] st Contact Info) Description 07/07/2023 Telephone [facility] MEDICINE [address] [place], [place] [phone] Kristy Wilder MD [address] [place], [place] [phone] Reschedule Social History Tobacco Use Types Packs/Day [...] Tc from pt requesting to r/s 07/25 MATERIAL REPROCESSING ASSOCIATE appointment due to pt having 2 appointments scheduled same day and will be doing chemo. Please contact pt at [phone] (Turkish) documented in this encounter Plan of Treatment Upcoming Encounters Date Type Department Care Team (Late st Contact Info) Description 04/15/2025 2:30 PM EST Office Visit [facility] OPTOMETRY [address] [place] [address] Paul, Yvonne, OD [address] [place] [address] 04/27/2025 3:00 PM EST Office Visit [facility] ADULT DENTAL [address] [place] [address] Zi Lozano DDS [address] [place] [address] 05/10/2025 1:30 PM EST Clinical Support [facility] MEDICINE [address] [place] [address] 05/16/2025 2:00 PM EST Telemedicine [facility] MED & PEDS [address] [place] [address] Colette Diop, BRICE [address] [place] [address] documented as of this encounter Visit Diagnoses Not on filedocumented in this encounter Additional Health Concerns Assessment Noted Time PHQ-9 Depression Total Score: 16 023 11:20 AM EDT documented as of this encounter Care Teams Color Expert Relationship Specialty Start Date End Date Kristy Wilder MD [address] [place] [address] PCP - General Internal Medicine 12/26/22 Bradly Gonzalez MD [address] [place] [address] Vascular Surgery 07/17/22 Rk Smith [address] [place] [address] Otolaryngology 01/14/25 Buck Hess DPM [address] [place] [address] Podiatry 01/14/25 Rosanne Mosley 03/28/25 Evita Hanna Pediatric Social WorkerAnesthesiology Tech 11/04/[address] [address] Physical Therapy 07/17/22 documented as of this encounter
--- OUTSIDE RECORDS SUMMARY | 2025-04-12 15:35 | XMS_ITS ---
Author Organization [employer] Address [address] [facility] [address] [place] [address] Care Team Providers Care Hydroelectric Plant Technician Name Role Phone Kristy Wilder MD Primary Care Pro vider Bradly Gonzalez MD Unavailable Rk Smith Unavailable Buck Hess DPM Unavailable [phone] Rosanne Mosley Unavailable CHW Complex Status:Outreach In Progress (Enrolling) Start date:03/28/2025 Enrollment reason:ADT Feed Overview CP Assigned Patient ED- Pt went to [facility] ED on 03/25/25. Case Team Name Relationship Phone Rosanne Mosley(Responsible Staff) [phone] Continued Care and Services Coordination
--- OUTSIDE RECORDS SUMMARY | 2025-04-12 15:35 | XMS_ITS | Encounter Summary ---
Author Organization [employer] Address [address] [facility] [address] [place] [address] Care Team Providers Care Waterproof Bag Sewer Name Role Phone Kristy Wilder MD Primary Care Pro vider Bradly Gonzalez MD Unavailable Rk Smith Unavailable Buck Hess DPM Unavailable [phone] Rosanne Mosley Unavailable Reason for Visit * Reason Comments Med Refill Encounter Details Date Type Department Care Team (Late st Contact Info) Description 05/15/2023 Refill [facility] MEDICINE [address] [place], [place] [phone] Evelina Freeman MD [address] [place], [place] [phone] Social History Tobacco Use Types Packs/Day Years [...] Visit [facility] OPTOMETRY [address] [place] [address] Yvonne Miller, OD [address] [place] [address] 04/27/2025 3:00 PM EST Office Visit [facility] ADULT DENTAL [address] [place] [address] Zi Lozano DDS [address] [place] [address] 05/10/2025 1:30 PM EST Clinical Support [facility] MEDICINE [address] [place] [address] 05/16/2025 2:00 PM EST Telemedicine [facility] MED & PEDS [address] [place] [address] Colette Diop, RN [address] [place] [address] documented as of this encounter Visit Diagnoses Not on filedocumented in this encounter Additional Health Concerns Assessment Noted Time PHQ-9 Depression Total Score: 16 023 11:20 AM EDT documented as of this encounter Care Teams Waterproof Bag Sewer Relationship Specialty Start Date End Date Kristy Wilder MD [address] [place] [address] [place] [address] PCP - General Internal Medicine 12/26/22 Bradly Gonzalez MD [address] [place] [address] Vascular Surgery 07/17/22 Rk Smith [address] [facility] [address] [place] [address] Otolaryngology 01/14/25 Buck Hess DPM [address] [facility] [address] [place] [address] Podiatry 01/14/25 Rosanne Mosley 03/28/25 Evita Hanna Ticket Dispenser ChangerSupervisor Pigment Making 11/04/24 [facility] CORE [address] [place] [address] Physical Therapy 07/17/22 documented as of this encounter
--- OUTSIDE RECORDS SUMMARY | 2025-04-12 15:35 | XMS_ITS | Clinical Summary ---
Author Organization [employer] Address [address] [facility] [address] [place] [address] Care Team Providers Care Pressure Testing Technician Name Role Phone Kristy Wilder MD Primary Care Pro vider Bradly Gonzalez MD Unavailable Rk Smith Unavailable Buck Hess DPM Unavailable [phone] Rosanne Mosley Unavailable Allergies Active Allergy Reactions Criticality Noted Date Comments Etadqzhis-Ug-Fquohixicefof Unknown 3 Hydromorphone Rash Low 06/28/2020 Other [...] 90 tablet 1 025 Active nystatin (Mycostatin) 029528 UNIT/GM powder Apply topically if needed each [...] MORNING BEFORE BREAKFAST 90 tablet 025 Active TRUEplus Lancets 33G miscIndications:T ype 2 diabetes mellitus with other specified complication, without long-term current use of insulin (HCC) USE DIRECTED TO TEST BLOOD SUGAR THREE TIMES DAILY 100 each 11 Active FREESTYLE LITE test stripIndications: Type 2 diabetes mellitus with other specified complication, without long-term current use of insulin (HCC) USE DIRECTED TO TEST BLOOD SUGAR THREE TIMES DAILY 100 strip 11 Active FREESTYLE LITE test strip TEST BLOOD SUGAR THREE TIMES DAILY 100 strip 11 024 2024 Discontinued TRUEplus Lancets 33G misc TEST BLOOD SUGAR THREE TIMES DAILY 100 each 11 024 2024 Discontinued levothyroxine (Synthroid) 75 MCG tabletIndications [...] r/t lung cancer diagnosis Pt will contact [employer]ICE [employer] company about increasing hours F/u PRN Therapeutic [...] 3. status post nephrectomy, at [facility] in January. 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 Marilyn grade 3. Stage IIIA, with renal vein extention. Stutent started on June 17. Urology appt 12/18/22: f/u appt H/O: hysterectomy 02/10/2018 Resolved Problems Problem Noted Date Diagnosed Date Resolved Date Overweight 11/01/2023 01/07/2024 Surgical wound, non healing 08/02/2023 11/01/2023 Obesity 03/11/2023 11/01/2023 Clear cell carcinoma of righ t kidney (CMS/HCC) 01/14/2023 03/11/2023 Renal cell carcinoma ([facility]/HCC) 01/14/2023 01/15/2023 Pulmonary nodules 12/10/2022 03/11/2023 Overview (12/23/2022): Pulm appt 12/09/22: The nodules are almost 8 mm in size based on my measurements. Plan CT-guided biopsy 12/19/22: Lung, left lower lobe, needle core biopsy: Metastatic clear cell renal cell carcinoma in keeping with patient's known renal primary. Lumbar back pain 04/25/2022 03/11/2023 Gross hematuria 12/18/2020 03/11/2023 Clear cell carcinoma of kidney ([facility]/HCC) 10/23/2018 12/10/2022 Renal mass 08/13/2018 03/11/2023 Encounters * This document contains information received from the source organization and may not represent a complete record from that organization. Date Type Department Care Team Description 04/06/2025 Telephone [facility] MEDICINE [address] [place] [phone] Kristy Wilder MD caroline recall 04/04/2025 Orders Only [address] [address] Kristy Wilder MD Hypothyroidism, unspecified type (Primary Dx) 04/04/2025 Results Follow-Up [address] [address] Kristy Wilder MD TSH, T4, Free, Comprehensive Metabolic Panel, Lipid Panel, Standard 04/04/2025 Orders Only GENERIC EXTERNAL DATA DEPARTMENT Provider, Generic External Data 04/04/2025 Refill [facility] MEDICINE [address] [place] [address] Kristy Wilder MD Type 2 diabetes mellitus with other specified complication, without long-term current use of insulin (HCC) 03/29/2025 Patient Outreach [facility] MED & PEDS [address] [place], [place] [phone] Kristy Wilder MD Care Coordination ( Care Coordination chart review ) 03/28/2025 Patient Outreach [facility] MEDICINE [address] [place] [phone] Kristy Wilder MD 03/22/2025 Refill [facility] MEDICINE [address] [place], [place] [phone] Kristy Wilder MD Acquired hypothyroidism 03/20/2025 Refill [facility] MEDICINE [address] [place], [place] [phone] Kristy Wilder MD 03/15/[address] [phone] Kristy Wilder MD Nurse Triage 03/11/2025 Refill [facility] MEDICINE [address] [place] [address] Kristy Wilder MD Therapeutic opioid induced constipation 03/08/2025 10:45 AM EDT Office Visit [address] [address] Kristy Wilder MD Varicose veins of lower extremity, unspecified laterality, unspecified whether complicated (Primary Dx); Encounter for vaccination; Encounter for immunization; Essential hypertension; Varicose veins of both lower extremities, unspecified whether complicated; Type 2 diabetes mellitus with other specified complication, without long-term current use of insulin ([facility]); Health care maintenance; Depressive disorder; Memory loss 03/08/2025 Travel 03/07/2025 Telephone [facility] MEDICINE [address] [place] [phone] Kristy Wilder MD chart prep 03/02/[address] [phone] Kristy Wilder MD Primary hypertension; Mixed hyperlipidemia 03/01/2025 10:00 AM EDT Office Visit [facility] ADULT DENTAL [address] [place] [address] Zi Lozano, [employer] 02/28/2025 Patient Outreach [facility] MEDICINE [address] [place] [phone] Kristy Wilder MD Pre-visit Planning (SDOH screening was completed on 09/20/2024) 02/28/2025 Refill [facility] MEDICINE [address] [place] [address] Kristy Wilder MD Primary insomnia 02/25/2025 Refill [facility] MEDICINE [address] [place] [address] Kristy Wilder MD Primary insomnia 02/22/2025 2:00 PM EDT Clinical Support [facility] MED & PEDS [address] [place] [address] Colette Diop RN Back pain, unspecified back location, unspecified back pain laterality, unspecified chronicity 02/22/2025 Refill [facility] MED & PEDS [address] [place] [address] Colette Diop RN Back pain, unspecified back location, unspecified back pain laterality, unspecified chronicity 02/22/2025 Travel 02/09/2025 Refill [facility] MEDICINE [address] [place] [address] Kristy Wilder MD 01/31/2025 Refill [facility] MEDICINE [address] [place] [address] Kristy Wilder MD Primary insomnia 01/17/2025 Refill [facility] MED [facility] PEDS [address] [place] [address] Kristy Wilder MD 01/14/2025 9:45 AM EDT Office Visit [facility] MEDICINE [address] [place] [phone] Kristy Wilder MD Essential hypertension (Primary Dx); Type 2 diabetes mellitus with other specified complication, without long-term current use of insulin (CMS/HCC); Obesity, unspecified class, unspecified obesity type, unspecified whether serious comorbidity present; Health care maintenance; Malignant neoplasm metastatic to lung, unspecified laterality (CMS/HCC); Renal cell carcinoma of right kidney (CMS/HCC); Anxiety; Depressive disorder; Transaminitis 01/14/2025 Travel 01/13/2025 Telephone [facility] MEDICINE [address] [place] [phone] Kristy Wilder MD chart prep 01/11/2025 Orders Only [facility] MEDICINE [address] [place] [phone] Kristy Wilder MD 01/10/[address] [address] Kristy Wilder MD requesting call back 01/10/[address] [address] Kristy Wilder MD Call Back Request from Last 3 Months Immunizations Immunization Administration [...] 2:30 PM EST Office Visit [facility] OPTOMETRY [address] [place] [address] Yvonne Miller, OD [address] [place] [address] 04/27/2025 3:00 PM EST Office Visit [facility] ADULT DENTAL [address] [place] [address] Zi Lozano, [employer] [address] [place] [address] 05/10/2025 1:30 PM EST Clinical Support [facility] MEDICINE [address] [place] [address] 05/16/2025 2:00 PM EST Telemedicine [facility] MED & PEDS [address] [place] [address] Colette Diop, RN [address] [place] [address] Health Maintenance Due Date Last Done Comments [...] location, unspecified back pain laterality, unspecified chronicity HEPATITIS C AB W/REFL TO HCV RNA, [...] Stimulating Hormone 5.82(H) 0.32 - 4.0 uIU/mL [facility] Comment:Note: A sustained TS H level above 2.5 uIU/mL may warrant further investigation. TSH 3rd Generation ([facility]) Blood Venous blood specimen / Unknown 04/04/2025 9:49 AM EDT 04/04/2025 11:39 AM EDT Kristy Mosley MD LAB BLOOD ORDERAB LES Final Result Performing Organization Address City/[facility]/ZIP Co de Phone Number [facility] [address] [place] [phone] * T4, Free (04/04/2025 9:49 AM EDT) Free T4 (Free Thyroxine) 0.94 0.71 - 1.85 ng/dL [facility] Blood Venous blood specimen / Unknown 04/04/2025 9:49 AM EDT 04/04/2025 11:39 AM EDT us Kristy Mosley MD LAB BLOOD ORDERAB LES Final Result Performing Organization Address City/[facility]/ZIP Co de Phone Number [facility] [address] [place] [phone] * (ABNORMAL) Lipid Panel, Standard (04/04/2025 9:49 AM EDT) Triglycerides 126 <150 mg/dL [facility] Comment:Desirable Triglyceri de: less than 150 mg/dLBorderline High Triglyceride 150-199 mg/dLHigh Triglyceride: 200-499 mg/dLVery High Triglyceride: greater than or equal to 5OO mg/dL Cholesterol 161 <200 mg/dL [facility] Comment:Desirable Cholestero l: less than 200 mg/dLBorderline High Cholesterol: 200-239 mg/dLHigh Cholesterol: greater than 239 mg/dL LDL Cholesterol Calculated 105(H) <100 mg/dL [facility] Comment:Desirable LDL: less than 100 mg/dLNear Optimal/Above Optimal LDL: 110- 129 mg/dLBorderline High LDL: 130-159 mg/dLHigh LDL: 160-189 mg/dLVery High LDL: greater than or equal to 190 mg/dL HDL Cholesterol 31(L) >40 mg/dL [facility] Comment:Desirable HDL: great er than 40 mg/dL Note: This HDL assay may give artificially low results in patients with liver disease. Blood Venous blood specimen / Unknown 04/04/2025 9:49 AM EDT 04/04/2025 11:39 AM EDT Kristy Mosley MD LAB BLOOD ORDERAB LES Final Result [facility] [address] [place] [phone] * (ABNORMAL) Comprehensive Metabolic Panel (04/04/2025 9:49 AM EDT) Only the most recent of2 resultswithin the time period is included. Sodium 143 135 - 145 mmol/L [facility] Potassium 4.5 3.3 - 5.1 mmol/L [facility] Chloride 111(H) 96 - 108 mmol/L [facility] Carbon Dioxide 29 22 - 29 mmol/L [facility] Anion Gap 8(L) 12 - 20 [facility] Urea Nitrogen (BUN) 15 9 - 16 mg/dL [facility] Creatinine, Serum 0.92 0.5 - 1.4 mg/dL [facility] Estimated Glomerular Filt Rate >60 [facility] Comment:Chronic Kidney Disea se: Estimated GFR < 60 mL/min/1.77v7[place] Kidney Disease: Estimated GFR < 15 mL/min/1.73m2 Glucose 89 60 - 115 mg/dL [facility] Calcium 9.1 8.4 - 10.2 mg/dL [facility] Bilirubin, Total 0.4 0.0 - 1.0 mg/dL [facility] Aspartate Amino Transferase 32(H) 5 - 31 U/L [facility] Alanine Aminotransferase 21 0 - 31 U/L [facility] Total Protein 6.5 6.5 - 8.0 g/dL [facility] Albumin Level 4.1 3.5 - 5.0 g/dL [facility] Alkaline Phosphatase 58 39 - 117 U/L [facility] 04/04/2025 9:49 AM EDT 04/04/2025 11:39 AM EDT us Generic External Data Provider LAB BLOOD ORDERAB LES Final Result [facility] [address] [place] [phone] * (ABNORMAL) POCT KAJAL-14 Urine Drug [...] PM EDT . Internal Pass Control Lot# [id number] Exp: 04-08-26 us Kristy Mosley MD POINT OF CARE NERY T ENTER/EDIT ORDERABLES Final Result * Albumin, Random Urine W/Creatinine (12/22/2024 9:56 AM EDT) Creatinine, Urine 257.42 mg/dL [facility] Microalbumin Urine 23.0 mg/L [facility] Microalbum Creatinine Ratio Ur 8.9 <30 ug/mg cr [facility] Comment:Albumin/Creatinine R atio Reference Ranges: Normal: < 30 ug/mg creatinine Microalbuminuria: 30 - 300 ug/mg creatinineClinical Albuminuria: > 300 ug/mg creatinine Urine (Urine, Random) 12/22/2024 9:56 AM EDT 12/22/2024 11:08 AM EDT Kristy Mosley MD LAB URINE ORDERAB LES Final Result Performing Organization Address [facility]/ZIP Co de Phone Number [facility] [address] [place] [phone] * Hepatitis C Antibody with Reflex to HCV, RNA, Quantitative, Real-Time PCR (12/22/2024 9:56 AM EDT) Hepatitis C Antibody Nonreactive Nonreactive [facility] Comment:Antibodies to HCV no t detected; does not exclude early acuteHCV infection. Blood Venous blood specimen / Unknown 12/22/2024 9:56 AM EDT 12/22/2024 11:07 AM EDT Kristy Mosley MD LAB BLOOD ORDERAB LES Final Result Performing Organization Address [facility] Co de Phone Number [facility] [address] [place] [phone] * HIV-1/2 Antigen and Antibodies, Fourth Generation, with Reflexes (12/22/2024 9:56 AM EDT) HIV AB/AG Nonreactive Nonreactive [facility] Comment:HIV-1 p24 Ag and/or HIV-1/HIV-2 Ab not detected.A test result that is nonreactive does not exclude thepossibility of exposure to or infection with HIV-1 and/orHIV-2. Nonreactive results in this assay for individualswith prior exposure to HIV-1 and/or HIV-2 may be due toantigen and antibody levels that are below the limit ofdetection of this assay.The [employer] HIV Ag/Ab Combo assay result andsupplemental assay results should be interpreted inconjunction with the patient's clinical presentation,history and other laboratory results. If the results areinconsistent with clinical evidence, additional testing issuggested to confirm the result. Blood Venous blood specimen / Unknown 12/22/2024 9:56 AM EDT 12/22/2024 11:07 AM EDT us Kristy Mosley MD LAB BLOOD ORDERAB LES Final Result Performing Organization Address [facility] Co de Phone Number [facility] [address] [place] [phone] * (ABNORMAL) Hemoglobin A1c (12/22/2024 9:56 AM EDT) Hemoglobin A1c 6.7(H) <6.0 % [facility] Comment:Hemoglobin A1C Refer ence Range Adults: 4.8 - 6.0 % Non diabetic: < 6.0 % Goal: < 7.0 %Additional Action Suggested: > 8.0 %Note: Hemoglobin A1c results are invalid for patients with abnormal amounts of HbF. Blood transfusions may impact the HbA1c concentration in the patient sample. Estimated Average Glucose 146 mg/dL [facility] Comment:eAG = Estimated ave rage glucose which is %A1C expressed asaverage glucose, using the formula of the W4N-TufmyawXjjdgzu Glucose study (ADAG), Diabetes Care, Vol.31,#8,Jan. 2007 Blood Venous blood specimen / Unknown 12/22/2024 9:56 AM EDT 12/22/2024 11:09 AM EDT us Kristy Mosley MD LAB BLOOD ORDERAB LES Final Result Performing Organization Address [facility] Co de Phone Number [facility] [address] [place] [phone] [phone] * BI Mammogram Screening Tomosynthesis Bilateral (12/08/2024 1:55 PM EDT) Anatomical Region Laterality Modality Breast Bilateral Mammography 12/08/2024 1:55 PM EDT Narrative 12/19/2024 9:17 PM EDT [facility] [address] [place] [address] Mammography Report Signed Patient: Krys Gillis MR# : [id number] : 1965 Acct:[id number] Age/Sex: 59 / F ADM Date: 12/08/24 Loc: HO.MAMMO Attending Dr: Kristy Mosley MD Ordering Physician: Kristy Wilder MD Re sults: 1Negative Date of Service: 12/08/24 Follow Up: 1 Year From Orig inal Mammogram Procedure(s): MM tomosynthesis screening BI Accession Number(s): [id number] cc: Kristy Wilder MD EXAMINATION: MM SCREENING [...] 12/19/24 2114 DD/ 1355 TD/TT: 12/08/24 1410 [employer] Aide Teacher: Procedure Note Donotuseinterpreter, Image - 12/19/[facility] [address] [place], [place] [address] Mammography Report Signed Patient: Krys GillisMR# : [id number] : 1965Acct:[id number] Age/Sex: 59 / FADM Date: 12/08/24 Loc: HO.MAMMO Attending Dr: Kristy Mosley MD Ordering Physician: Kristy Wilder sults: 1Negative Date of Service: 12/08/24Follow Up: 1 Year From Orig inal Mammogram Procedure(s): MM tomosynthesis screening BI Accession Number(s): [id number] cc: Kristy Wilder MD EXAMINATION: MM SCREENING [...] 12/19/24 2114 DD/ 1355 TD/TT: 12/08/24 1410 [employer] Aide Teacher: us Kristy Mosley MD IMG BI PROCEDURES Edited Result - Final * Pap Smear (11/01/2020) Pap smear Performed us Historical Provider HEALTH MAINTENANCE Final Result * Colonoscopy (11/23/2018) Colonoscopy Performed us Historical Provider HEALTH MAINTENANCE Edited Result - Final from Last 3 Months or Most Recently Relevant to Health Maintenance Insurance [facility] [address] C[address] DENTAL-[facility] MEDICAID STAND ADULT Care Teams Pressure Testing Technician Relationship Specialty Start Date End Date Kristy Wilder MD [address] [place] [address] PCP - General Internal Medicine 12/26/22 Bradly Gonzalez MD [address] [place] [address] Vascular Surgery 07/17/22 Rk Smith [address] [place] [address] Otolaryngology 01/14/25 Buck Hess DPM [address] [place] [address] Podiatry 01/14/25 Rosanne Mosley 03/28/25 Evita Hanna Bookkeeping Machine OperatorOptician Apprentice 11/04/24 [facility] [address] [place] [phone] Physical Therapy 07/17/22
--- OUTSIDE RECORDS SUMMARY | 2025-04-12 15:35 | XMS_ITS | Clinical Summary ---
Author Organization [facility] Address [address] [place] [address] Phone Care Team Providers Care Life Scientist Name Role Phone Physician, No Pcp Primary [...] EDT - 03/30/2025 1:41 PM EDT Emergency [facility] Emergency [address] [place] [id number] Zoie Florentino MD Wyman, Tim, MD Zaidi, MD Tonja Zurita, MD Bharath Scott, MD Isaac Ewing, MD Juana Willis, MD Rufina Betts Mathew, MD Medication overdose, intentional self-harm, initial encounter ([facility] V24, [facility] V28) (Primary Dx) Discharge Disposition: [facility] from Last 3 Months Medical History Medical History Date Comments Diabetes mellitus ([facility] V24, [facility] V28) Hypertension Social History Tobacco [...] GEMUSE QTc 434 ms GEMUSE P Wave [place]romas 31 degrees GEMUSE R Aromas 38 degrees GEMUSE T Aromas 47 degrees GEMUSE ECG Interpretation Normal sinus [...] resultswithin the time period is included. Pathologist [facility] Glucose POCT 85 70 - 100 mg/dL 03/29/2025 8:30 AM EDT [facility] Blood Capillary blood specimen / Unknown 03/29/2025 8:22 AM EDT 03/29/2025 8:31 AM EDT Everardo Gray MD LAB POINT OF CARE TEST DOCKED DEVICE UNSOLICITED RESULTS Final Result Performing Organization Address City/[facility]/ZIP Co de Phone Number [facility] [address] [place] [address], [place] [phone] * Activated Partial Thromboplastin Time - STAT (03/26/2025 6:31 PM EDT) [facility] aPTT 32.6 24.1 - 39.3 sec LAB COAGULATION METHOD 03/26/2025 7:16 PM EDT [facility] Blood Venous blood specimen / Unknown Venipuncture / Unknown 03/26/2025 6:31 PM EDT 03/26/2025 6:53 PM EDT Ayden Vera MD LAB BLOOD ORDERABLES Shelli l Result Performing Organization Address City/[facility]/ZIP Co de Phone Number [facility] [address] [place] [address], [place] [phone] * Prothrombin Time with INR - STAT (03/26/2025 6:31 PM EDT) [facility] Protime 12.3 10.6 - 13.9 sec LAB COAGULATION METHOD 03/26/2025 7:16 PM EDT [facility] INR 1.0 LAB COAGULATION METHOD 03/26/2025 7:16 PM EDT [facility] Blood Venous blood specimen / Unknown Venipuncture / Unknown 03/26/2025 6:31 PM EDT 03/26/2025 6:53 PM EDT Ayden Vera MD LAB BLOOD ORDERABLES Shelli l Result [facility] [address] [place] [address], [place] [phone] * (ABNORMAL) Drug abuse screen 8a panel, urine (03/26/2025 9:34 AM EDT) [facility] Amphetamine Screen, Ur Negative Negative LAB CHEMISTRY METHOD 10:50 AM EDT [facility] Comment:Certain OTC medicati ons containing ephedrine, phenylephrine, pseudoephedrine and phenylpropanolamine can cause false positive results. Barbiturate Screen, Ur Negative Negative LAB CHEMISTRY METHOD 10:50 AM EDT [facility] Benzodiazepine Screen, Ur Positive(A ) Negative LAB CHEMISTRY METHOD 10:50 AM T [facility] Cocaine Screen, Ur Negative Negative LAB CHEMISTRY METHOD 10:50 AM T [facility] Opiate Screen, Ur Negative Negative LAB CHEMISTRY METHOD 10:50 AM [facility] Cannabinoid (THC) Screen, Ur Negative Negative LAB CHEMISTRY METHOD 10:50 AM [facility] Comment:Specimens from patie nts taking pantoprazole sodium (Protonix) have been shown to produce false positive results. Oxycodone Screen, Ur Negative Negative LAB CHEMISTRY METHOD 10:50 AM [facility] Fentanyl, Ur Negative Negative LAB CHEMISTRY METHOD 10:50 AM [facility] Urine Urine specimen obtained by clean catch procedure / Unknown Non-blood Collection / Unknown 03/26/2025 9:34 AM EDT 03/26/2025 10:15 AM EDT Narrative [facility] - 03/26/2025 10:50 AM [...] MD LAB URINE ORDERABLES Final Res ult [facility] [address] [place] [address], [place] [phone] * Buprenorphine screen, urine (03/26/2025 9:34 AM EDT) Buprenorphine Screen Urine Negative Negative LAB CHEMISTRY METHOD 03/26/2025 10:50 AM EDT [facility] Urine Urine specimen obtained by clean catch procedure / Unknown Non-blood Collection / Unknown 03/26/2025 9:34 AM EDT 03/26/2025 10:15 AM EDT Narrative [facility] - 03/26/2025 10:50 AM EDT Assay cutoff 5 ng/mL Semi-quantitative assay for screening purposes only. Unconfirmed screening result should not be used for non-medical purposes. *ALTERNATE METHOD CONFIRMATION DONE UPON REQUEST ONLY* us Zoie Florentino MD LAB URINE ORDERABLES Final Res ult Performing Organization Address [facility] de Phone Number [facility] [address] [place] [address], [place] [phone] * Methadone, urine (03/26/2025 9:34 AM EDT) Methadone Screen, Urine Negative Negative LAB CHEMISTRY METHOD 03/26/2025 10:50 AM EDT [facility] Comment: Assay cutoff 300 [...] ORDERABLES Final Res ult Performing Organization Address City/[facility]/ZIP Co de Phone Number [facility] [address] [place] [address], [place] [phone] * Phencyclidine, urine (03/26/2025 9:34 AM EDT) Pathologist [facility] PCP Scrn, Ur Negative Negative LAB CHEMISTRY METHOD 03/26/2025 10:56 AM EDT [facility] Comment: Assay cutoff 25 [...] ORDERABLES Final Res ult Performing Organization Address [facility]/ZIP Co de Phone Number [facility] [address] [place] [address], [place] [phone] * Thyroid stimulating hormone with reflex to free t4 and free t3 (2025 9:44 PM EDT) [facility] TSH 2.35 0.40 - 4.00 mcIU/mL LAB CHEMISTRY METHOD 2025 11:20 PM EDT [facility] Blood Venous blood specimen / Unknown Venipuncture / Unknown 2025 9:44 PM EDT 2025 10:00 PM EDT Zoie Florentino MD LAB BLOOD ORDERABLES Final Res ult [facility] [address] [place] [address], [place] [phone] * (ABNORMAL) CBC auto differential (2025 9:44 PM EDT) [facility] WBC 3.9(L) 4.8 - 10.8 K/mcL LAB HEMETOLOGY METHOD 2025 10:07 PM EDT [facility] RBC 3.20(L) 3.80 - 4.80 M/mcL [facility] Hemoglobin 10.9(L) 11.5 - 16.0 g/dL LAB HEMETOLOGY METHOD 2025 10:07 PM [facility] Hematocrit 32.6(L) 35.0 - 47.0 % LAB [facility]EMETOLOGY METHOD 2025 10:[facility] MCV 101.9(H) 79.0 - 98.0 FL LAB HEMETOLOGY METHOD 2025 10:07 PM [facility] MCH 34.1(H) 27.0 - 32.0 pcg LAB HEMETOLOGY METHOD 2025 10:07 PM [facility] MCHC 33.4 32.0 - 37.0 g/dL LAB HEMETOLOGY METHOD 2025 10:07 PM [facility] RDW 13.0 11.0 - 15.0 % LAB HEMETOLOGY METHOD 2025 10:07 PM [facility] Platelets 147 130 - 400 K/mcL LAB HEMETOLOGY METHOD 2025 10:07 PM [facility] MPV 10.0 7.0 - 11.0 FL LAB HEMETOLOGY METHOD 2025 10:07 PM [facility] NRBC 0.0 <1.0 % LAB HEMETOLOGY METHOD 2025 10:07 PM [facility] NRBC Absolute 0.00 <0.10 K/mcL LAB HEMETOLOGY METHOD 2025 10:07 PM [facility] Neutrophils Relative 72.5 % LAB HEMETOLOGY METHOD 2025 10:07 PM [facility] Lymphocytes Relative 16.8 % LAB HEMETOLOGY METHOD 2025 10:07 PM EDT [facility] Monocytes Relative 8.8 % LAB HEMETOLOGY METHOD 2025 10:07 PM [facility] Eosinophils Relative 1.3 % LAB HEMETOLOGY METHOD 2025 10:07 PM [facility] Basophils Relative 0.3 % LAB HEMETOLOGY METHOD 2025 10:07 PM [facility] Immature Granulocytes Relative 0.3 % LAB HEMETOLOGY METHOD 2025 10:07 PM [facility] Neutrophils Absolute 2.80 1.50 - 7.00 K/mcL LAB HEMETOLOGY METHOD 2025 10:07 PM [facility] Lymphocytes Absolute 0.65(L) 1.00 - 5.00 K/mcL LAB HEMETOLOGY METHOD 2025 10:07 PM [facility] Monocytes Absolute 0.34 0.20 - 1.00 K/mcL LAB HEMETOLOGY METHOD 2025 10:07 PM [facility] Eosinophils Absolute 0.05 0.00 - 0.50 K/mcL LAB HEMETOLOGY METHOD 2025 10:07 PM [facility] Basophils Absolute 0.01 0.00 - 0.20 K/mcL LAB HEMETOLOGY METHOD 2025 10:07 PM [facility] Immature Granulocytes Absolute 0.01 0.00 - 0.03 K/mcL LAB HEMETOLOGY METHOD 2025 10:07 PM [facility] Blood Venous blood specimen / Unknown Venipuncture / Unknown 2025 9:44 PM EDT 2025 10:00 PM EDT Zoie Florentino MD LAB BLOOD ORDERABLES Final Res ult Performing Organization Address [facility] Co de Phone Number [facility] [address] [place] [address], [place] [phone] * (ABNORMAL) Magnesium (2025 9:44 PM EDT) Magnesium 1.8(L) 1.9 - 2.6 mg/dL LAB CHEMISTRY METHOD 03/26/2025 12:17 AM EDT [facility] Blood Venous blood specimen / Unknown Venipuncture / Unknown 2025 9:44 PM EDT 2025 10:00 PM EDT Zoie Florentino MD LAB BLOOD ORDERABLES Final Res ult Performing Organization Address [facility] de Phone Number [facility] [address] [place] [address], [place] [phone] * Ethanol (2025 9:44 PM EDT) Ethanol Level <3 0 - 10 mg/dL LAB CHEMISTRY METHOD 2025 10:47 PM EDT [facility] Blood Venous blood specimen / Unknown Venipuncture / Unknown 2025 9:44 PM EDT 2025 10:00 PM EDT Zoie Florentino MD LAB BLOOD ORDERABLES Final Res ult Performing Organization Address [facility] de Phone Number [facility] [address] [place] [address], [place] [phone] * (ABNORMAL) Acetaminophen level (2025 9:44 PM EDT) Only the most recent of2 resultswithin the time period is included. Acetaminophen Level <2.0(L) 10.0 - 30.0 mcg/mL LAB CHEMISTRY METHOD 2025 10:46 PM EDT [facility] Blood Venous blood specimen / Unknown Venipuncture / Unknown 2025 9:44 PM EDT 2025 10:00 PM EDT Zoie Florentino MD LAB BLOOD ORDERABLES Final Res ult Performing Organization Address [facility]/ZIP Co de Phone Number [facility] [address] [place] [address], [place] [phone] * (ABNORMAL) Salicylate level (2025 9:44 PM EDT) Salicylate Level <1.7(L) 2.0 - 29.0 mg/dL LAB CHEMISTRY METHOD 2025 10:47 PM EDT [facility] Blood Venous blood specimen / Unknown Venipuncture / Unknown 2025 9:44 PM EDT 2025 10:00 PM EDT us Zoie Florentino MD LAB BLOOD ORDERABLES Final Res ult Performing Organization Address [facility]/ZIP Co de Phone Number [facility] [address] [place] [address], [place] [phone] * (ABNORMAL) Comprehensive metabolic panel (2025 9:44 PM EDT) Sodium 145 133 - 145 mmol/L LAB CHEMISTRY METHOD 2025 10:48 PM EDT [facility] Potassium 3.6 3.5 - 5.5 mmol/L LAB CHEMISTRY METHOD 2025 10:48 PM EDT [facility] Chloride 113(H) 96 - 110 mmol/L LAB CHEMISTRY METHOD 2025 10:48 PM EDT [facility] CO2 27 21 - 32 mmol/L LAB CHEMISTRY METHOD 2025 10:48 PM [facility] Anion Gap 5 3 - 11 LAB CHEMISTRY METHOD 2025 10:48 PM [facility] Glucose 91 70 - 100 mg/dL LAB CHEMISTRY METHOD 2025 10:48 PM [facility] BUN 9 5 - 25 mg/dL LAB CHEMISTRY METHOD 2025 10:48 PM [facility] Creatinine 0.70 0.50 - 1.10 mg/dL LAB CHEMISTRY METHOD 2025 10:48 PM [facility] eGFR 100 >=60 mL/min/1. 73m2 LAB CHEMISTRY METHOD 2025 10:48 PM [facility] Comment:Calculation based on the Chronic Kidney Disease Epidemiology Collaboration (CKD-EPI) equation refit without adjustment for race. BUN/Creatinine Ratio 12.9 LAB CHEMISTRY METHOD 2025 10:48 PM [facility] Calcium 7.9(L) 8.5 - 10.5 mg/dL LAB CHEMISTRY METHOD 2025 10:48 PM [facility] AST (SGOT) 22 10 - 42 unit/L LAB CHEMISTRY METHOD 2025 10:48 PM [facility] ALT (SGPT) 24 10 - 60 unit/L LAB CHEMISTRY METHOD 2025 10:48 PM [facility] Alkaline Phosphatase 56 42 - 121 unit/L LAB CHEMISTRY METHOD 2025 10:48 PM [facility] Total Protein 5.2(L) 6.0 - 8.0 g/dL LAB CHEMISTRY METHOD 2025 10:48 PM [facility] Albumin 3.0(L) 3.2 - 5.0 g/dL LAB CHEMISTRY METHOD 2025 10:48 PM [facility] Total Bilirubin 0.4 0.0 - 1.4 mg/dL LAB CHEMISTRY METHOD 2025 10:48 PM EDT [facility] Blood Venous blood specimen / Unknown Venipuncture / Unknown 2025 9:44 PM EDT 2025 10:00 PM EDT us Zoie Florentino MD LAB BLOOD ORDERABLES Final Res ult [facility] [address] [place] [address], [place] [phone] from Last 3 Months Insurance MEDICAID - [place] Care Teams Life Scientist Relationship Specialty Start Date End Date Physician, No Pcp PCP - General 05/09/24
--- OUTSIDE RECORDS SUMMARY | 2025-04-12 15:35 | XMS_ITS | Encounter Summary ---
Author Organization [employer] Address [address] [facility] 7t [place] [address] Care Team Providers Care Lead Java Developer Architect Name Role Phone Kristy Wilder MD Primary Care Pro vider Bradly Gonzalez MD Unavailable Rk Smith Unavailable Buck Hess DPM Unavailable [phone] Rosanne Mosley Unavailable Reason for Visit * Reason Comments Med Refill Encounter Details Date Type Department Care Team (Late st Contact Info) Description 02/25/2025 Refill [facility] [address] [place], [place] [phone] Kristy Wilder MD [address] [place], [place] [phone] Primary insomnia Social History Tobacco Use Types [...] Description 04/15/2025 2:30 PM EST Office Visit [facility] [address] [place] [address] PaulYvonne marlow, OD [address] [place] [address] 04/27/2025 3:00 PM EST Office Visit [facility] [address] [place] [address] Zi Lozano DDS [address] [place] [address] 05/10/2025 1:30 PM EST Clinical Support [facility] [address] [place] [address] 05/16/2025 2:00 PM EST Telemedicine [facility]ED[facility] [address] [place] [address] Colette Diop, BRICE [address] [place] [address] documented as of this encounter Visit Diagnoses Diagnosis Primary insomnia Persistent disorder of initiating or maintaining sleep documented in this encounter Additional Health Concerns Assessment Noted Time PHQ-9 Depression Total Score: 12 025 9:32 AM EDT documented as of this encounter Care Teams Lead Java Developer Architect Relationship Specialty Start Date End Date Kristy Wilder MD [address] [place] [address] PCP - General Internal Medicine 12/26/22 Bradly Gonzalez MD [address] [place] [address] Vascular Surgery 07/17/22 Rk Smith 100 [facility] [address] [place] [address] Otolaryngology 01/14/25 Buck Hess DPM [address] [place] [address] [address] [place] [address] Podiatry 01/14/25 Rosanne Mosley 03/28/25 Evita Hanna Spa ConciergeGreenskeeper Supervisor 11/04/[address] [address] Physical Therapy 07/17/22 documented as of this encounter
--- OUTSIDE RECORDS SUMMARY | 2025-04-12 15:36 | XMS_ITS | Encounter Summary ---
Author Organization [employer] Address [address] [facility] 7t [place] [address] Care Team Providers Care Saddle Stitching Machine Operator Name Role Phone Khloe Fonseca Primary Care Provider Kristy Ring MD Primary Care Pro vider Bradly Gonzalez MD Unavailable Rk Smith Unavailable Buck Hess DPM Unavailable [phone] Rosanne Mosley Unavailable Reason for Visit * Reason Onset Date Comments pt1 10/16/2022 Encounter Details Date Type Department Care Team (Late st Contact Info) Description 10/16/2022 Telephone [facility] [address] [place] [id number] Khloe Fonseca FNP pt1 Social History Tobacco [...] Nannette Whittaker - 10/24/2022 10:19 AM EDT Keyboard Operator called and left voicemail for pt stating Pt1 Request was approved and she may call to schedule * Telephone Encounter - Nannette Whittaker - 10/24/2022 10:17 AM EDT Patient will recieve approval / denial letter via mail. PT-1 Request [id number] Pending - [facility] Pulmonology [address] [place] [address] Dr Holliday [place] * Telephone Encounter - Eddie Sousa - 10/21/2022 10:14 AM EDT Tc from pt requesting status on PT1. Date: October 22, 2022 Time: 2:45 pm address:[address] [place] [address] specialty:Pulmonology Center # visits: orchestra director: no Wheelchair: no * Telephone Encounter - Marko Rodriguez - 10/16/2022 11:51 AM EDT Tc from pt requesting pt1 ride Date: october 22, 2022 Time: 2:45 pm address:[address] [place] [address] [place] [address] specialty:Pulmonology Center # visits: orchestra director: no Wheelchair: no documented in this encounter Plan of Treatment Upcoming Encounters Date Type Department Care Team (Late st Contact Info) Description 04/15/2025 2:30 PM EST Office Visit [facility] [address] [place] [address] Paul, Yovnne, OD [address] [place] [address] 04/27/2025 3:00 PM EST Office Visit [facility] [address] [place] [address] Zi Lozano, DDS [address] [place] [address] 05/10/2025 1:30 PM EST Clinical Support [facility] [address] [place] [address] 05/16/2025 2:00 PM EST Telemedicine [facility] [address] [place] [address] Colette Diop, RN [address] [place] [address] documented as of this encounter Visit Diagnoses Not on filedocumented in this encounter Additional Health Concerns Assessment Noted Time PHQ-9 Depression Total Score: 11 022 1:16 PM EST documented as of this encounter Care Teams Saddle Stitching Machine Operator Relationship Specialty Start Date End Date Khloe Fonseca FNP PCP - General Family Medicine 02/05/22 12/25/22 Kristy Wilder MD [address] [place] [address] PCP - General Internal Medicine 12/26/22 Bradly Gonzalez MD [address] [place] [address] Vascular Surgery 07/17/22 Rk Smith 100 [facility] [address] [place] [address] Otolaryngology 01/14/25 Buck Hess DPM [address] [place] [address] [address] [place] [address] Podiatry 01/14/25 Rosanne Mosley 03/28/25 Evita Hanna Building MoverHha 11/04/24 [facility] CORE [address] [place] [place] [address] Physical Therapy 07/17/22 documented as of this encounter
--- OUTSIDE RECORDS SUMMARY | 2025-04-12 15:36 | XMS_ITS | Encounter Summary ---
Author Organization [employer] Address [address] [facility] 7t [place] [address] Care Team Providers Care Alpine Guide Name Role Phone Kristy Wilder MD Primary Care Pro vider Bradly Gonzalez MD Unavailable Rk Smith Unavailable Buck Hess DPM Unavailable [phone] Rosanne Mosley Unavailable Reason for Visit * [...] (Late st Contact Info) Description 02/11/2023 Refill [facility] [address] [place] [phone] Kristy Wilder MD [address] [place], [place] [phone] Primary insomnia; Chronic low back pain, unspecified [...] Office Visit [facility] [address] [place] [address] Yvonne Miller, OD [address] [place] [address] 04/27/2025 3:00 PM EST Office Visit [facility] ADULT DENTAL [address] [place] [address] Zi Lozano DDS [address] [place] [address] 05/10/2025 1:30 PM EST Clinical Support [facility] [address] [place] [address] 05/16/2025 2:00 PM EST Telemedicine [facility] MED & PEDS [address] [place] [address] Colette Diop, RN [address] [place] [address] documented as of this encounter Visit Diagnoses Diagnosis Primary insomnia Persistent disorder of initiating or maintaining sleep Chronic low back pain, unspecified back pain laterality, unspecified whether sciatica present documented in this encounter Additional Health Concerns Assessment Noted Time PHQ-9 Depression Total Score: 11 022 1:16 PM EST documented as of this encounter Care Teams Alpine Guide Relationship Specialty Start Date End Date Kristy Wilder MD [address] [place] [address] PCP - General Internal Medicine 12/26/22 Bradly Gonzalez MD [address] [place] [address] Vascular Surgery 07/17/22 Rk Smith 100 [facility] [address] [place] [address] Otolaryngology 01/14/25 Buck Hess DPM [address] [facility] [address] [place] [address] Podiatry 01/14/25 Rosanne Mosley 03/28/25 Evita Hanna Technical ConsultantCustomer Experience Analyst 11/04/24 [facility] [address] [place] [address] Physical Therapy 07/17/22 documented as of this encounter
--- OUTSIDE RECORDS SUMMARY | 2025-04-12 15:36 | XMS_ITS | Encounter Summary ---
Author Organization [employer] Address [address] [facility] 7t [place] [address] Care Team Providers Care Trap Operator Name Role Phone Khloe Fonseca Primary Care Provider Kristy Ring MD Primary Care Pro vider Bradly Gonzalez MD Unavailable Rk Smith Unavailable Buck Hess DPM Unavailable [phone] Rosanne Mosley Unavailable Reason for Visit * Reason Onset Date Comments pt1 10/03/2022 Encounter Details Date Type Department Care Team (Late st Contact Info) Description 10/03/2022 Telephone [facility] [address] [place] [address] Khloe Fonseca FNP pt1 Social History Tobacco [...] 3 10/03/2022 9:34 AM EDT Jessenia Boston, MEDICAL EDUCATION COORDINATOR Not being able to stop or control [...] oct 07 2022 Time: 2:30 pm address: [address] [place] [address] [address], [place] [address] specialty: # visits: acute care physical therapist: no Wheelchair: no Date:10/23/22 Time:02 pm address: [facility] specialty: PCP # visits: acute care physical therapist: no Wheelchair: no Date:11/07/22 Time: 1:30 address: [facility] specialty: PCP # visits: acute care physical therapist: no Wheelchair:no documented in this encounter Plan of Treatment Upcoming Encounters Date Type Department Care Team (Late st Contact Info) Description 04/15/2025 2:30 PM EST Office Visit [facility] OPTOM[facility]RY [address] [place] [address] Yvonne Miller, OD [address] [place] [address] 04/27/2025 3:00 PM EST Office Visit [facility]ULT [facility] [address] [place], [place] [phone] Zi Lozano DDS [address] [place] [address] 05/10/2025 1:30 PM EST Clinical Support [facility] [address] [place] [address] 05/16/2025 2:00 PM EST Telemedicine [facility]EDS [address] [place], [place] [phone] Colette Diop, RN [address] [place] [address] documented as of this encounter Visit Diagnoses Not on filedocumented in this encounter Additional Health Concerns Assessment Noted Time PHQ-9 Depression Total Score: 11 022 1:16 PM EST documented as of this encounter Care Teams Trap Operator Relationship Specialty Start Date End Date Khloe Fonseca FNP PCP - General Family Medicine 02/05/22 12/25/22 Kristy Wilder MD [address] [place] [address] PCP - General Internal Medicine 12/26/22 Bradly Gonzalze MD [address] [facility] [facility] [address] [place] [address] Vascular Surgery 07/17/22 Rk Smith 100 [facility] [address] [place] [address] Otolaryngology 01/14/25 Buck Hess DPM [address] [place] [address] [place] [address] Podiatry 01/14/25 Rosanne Mosley 03/28/25 Evita Hanna Panel Raiser OperatorBoilermaker Mechanic 11/04/24 [facility] [address] [place] [address] Physical Therapy 07/17/22 documented as of this encounter
--- OUTSIDE RECORDS SUMMARY | 2025-04-12 15:36 | XMS_ITS | Encounter Summary ---
Author Organization [employer] Address 75 [facility] 7 [place] [address] Care Team Providers Care Wet Process Head Miller Name Role Phone Kristy Wilder MD Primary Care Pro vider Bradly Gonzalez MD Unavailable Rk Smith Unavailable Buck Hess DPM Unavailable [phone] Rosanne Mosley Unavailable Reason for Visit * Reason Onset Date Comments PT-1 12/31/2024 Encounter Details Date Type Department Care Team ([facility] st Contact Info) Description 12/31/2024 Telephone [facility] MEDICINE [address] [place], [place] [phone] Kristy Wilder MD 230 [place], [place] [phone] PT-1 Social History Tobacco Use Types Packs/Day [...] Y/N: Yes Provider name or facility name: [facility] Facility Address: [address] [place] [address] Escort needed: Y/N: Yes Do you have a wheelchair: Y/N: No If yes- Manual or electric: N/A Visits: 3 times a month documented in this encounter Plan of Treatment Upcoming Encounters Date Type Department Care Team (Late st Contact Info) Description 04/15/2025 2:30 PM EST Office Visit [facility] OPTOMETRY [address] [place] [address] Yvonne Miller, OD 230 [place] [address] 04/27/2025 3:00 PM EST Office Visit [facility] CHC ADULT DENTAL [address] [place] [address] Zi Lozano DDS 230 [place] [address] 05/10/2025 1:30 PM EST Clinical Support [facility] MEDICINE [address] [place] [address] 05/16/2025 2:00 PM EST Telemedicine [facility] CHC MED & PEDS [address] [place] [address] Colette Diop, RN [address] [place] [address] documented as of this encounter Visit Diagnoses Not on filedocumented in this encounter Additional Health Concerns Assessment Noted Time PHQ-9 Depression Total Score: 16 025 2:11 PM EDT documented as of this encounter Care Teams Wet Process Head Miller Relationship Specialty Start Date End Date Kristy Wilder MD 230 [place] [address] PCP - General Internal Medicine 12/26/22 Bradly Gonzalez MD [address] [place] [address] Vascular Surgery 07/17/22 Rk Smith 100 [facility] [address] [place] [address] Otolaryngology 01/14/25 Buck Hess DPM [address] [place] [address] 250 [place] [address] Podiatry 01/14/25 Rosanne Mosley 03/28/25 Evita Hanna Instrument MechanicRailroad Police 11/04/24 [facility] [address] [place] [address] Physical Therapy 07/17/22 documented as of this encounter
--- OUTSIDE RECORDS SUMMARY | 2025-04-12 15:36 | XMS_ITS | Encounter Summary ---
Author Organization [facility] Address [address] [place] [address] Care Team Providers Care License Inspector Name Role Phone Davon Wu Primary Care Provider [phone] Encounter Details Date Type Department Care Team (Late st Contact Info) Description 10/31/2020 Orders Only [facility] Xray [address] [place] [address] Winifred Winston MD [address] [place], [place] [phone] Social History Tobacco Use Types Packs/Day Years [...] on filedocumented in this encounter Care Teams License Inspector Relationship Specialty Start Date End Date Davon Wu 230 [place] [address] PCP - General Internal Medicine 09/28/18 documented as of this encounter
--- OUTSIDE RECORDS SUMMARY | 2025-04-12 15:36 | XMS_ITS | Encounter Summary ---
Author Organization [employer] Address 75 [facility] 7t h Floor [place] [phone] Care Team Providers Care Press Tender Incendiary Grenade Name Role Phone Khloe Fonseca RADAR MECHANIC Primary Care Provider Kristy Ring MD Primary Care Pro vider Bradly Gonzalez MD Unavailable Rk Smith Unavailable Buck Hess DPM Unavailable [phone] Rosanne Mosley Unavailable Reason for Visit * Reason Onset Date Comments Med Refill [facility] order 08/25/2022 Order # [id number] Encounter Details Date Type Department Care Team (Late st Contact Info) Description 08/25/2022 Refill [facility] MEDICINE 230 [place] [address] Khloe Fonseca FNP Type 2 diabetes mellitus without complication, without long-term current use of insulin ([facility]) Social History Tobacco Use Types Packs/Day Years [...] Description 04/15/2025 2:30 PM EST Office Visit [facility] OPTOMETRY [address] [place] [address] PaulYvonne marlow, OD [address] [place] [address] 04/27/2025 3:00 PM EST Office Visit [facility] ADULT DENTAL 505 [place], [place] [phone] Zi Lozano DDS [address] [place] [address] 05/10/2025 1:30 PM EST Clinical Support [facility] MEDICINE 230 [place] [address] 05/16/2025 2:00 PM EST Telemedicine [facility] MED & PEDS 505 [place], [place] [phone] Colette Diop RN 505 [place], [place] [phone] documented as of this encounter Visit Diagnoses Diagnosis Type 2 diabetes mellitus without complication, without long-term current use of insulin (HCC) documented in this encounter Additional Health Concerns Assessment Noted Time PHQ-9 Depression Total Score: 11 022 1:16 PM EST documented as of this encounter Care Teams Press Tender Incendiary Grenade Relationship Specialty Start Date End Date Khloe Fonseca FNP PCP - General Family Medicine 02/05/22 12/25/22 Kristy Wilder MD 230 [place] [address] PCP - General Internal Medicine 12/26/22 Bradly Gonzalez MD [address] [place] [address] Vascular Surgery 07/17/22 Rk Smith [address] [place] [address] Otolaryngology 01/14/25 Buck Hess DPM [address] [place] [address] [address] [place] [address] Podiatry 01/14/25 Rosanne Mosley 03/28/25 Evita Hanna Windows Systems EngineerDirector Of Enterprise Applications 11/04/24 [facility] [address] [place] [address] Physical Therapy 07/17/22 documented as of this encounter
--- OUTSIDE RECORDS SUMMARY | 2025-04-12 15:36 | XMS_ITS | Encounter Summary ---
Author Organization [employer] Address 75 [facility] 7t [place] [address] Care Team Providers Care Cobbler Mckay Name Role Phone Kristy Wilder MD Primary Care Pro vider Bradly Gonzalez MD Unavailable Rk Smith Unavailable Buck Hess DPM Unavailable [phone] Rosanne Mosley Unavailable Reason for Visit * Reason Comments Med Refill Encounter Details Date Type Department Care Team (Late st Contact Info) Description 09/10/2023 Refill [facility] MEDICINE 230 [place], [place] [phone] Kristy Wilder MD 230 [place], [place] [phone] Type 2 diabetes mellitus with diabetic polyneuropathy, without long-term current use of insulin ([facility]) Social History Tobacco Use [...] [facility] OPT[facility] 267 [place] [address] Yvonne Miller, OD 230 [place] [address] 04/27/2025 3:00 PM EST Office Visit [facility] ADULT DENTAL 505 [place] [address] Zi Lozano DDS 230 [place] [address] 05/10/2025 1:30 PM EST Clinical Support [facility] MEDICINE 230 [place] [address] 05/16/2025 2:00 PM EST Telemedicine [facility] MED & PEDS 505 [place] [address] Colette Diop, RN 505 [place] [address] documented as of this encounter Visit Diagnoses Diagnosis Type 2 diabetes mellitus with diabetic polyneuropathy, without long-term current use of insulin (HCC) documented in this encounter Additional Health Concerns Assessment Noted Time PHQ-9 Depression Total Score: 16 023 11:20 AM EDT documented as of this encounter Care Teams Cobbler Mckay Relationship Specialty Start Date End Date Kristy Wilder MD 230 [place] [address] PCP - General Internal Medicine 12/26/22 Bradly Gonzalez MD [address] [place] [address] Vascular Surgery 07/17/22 Rk Smith [address] [place], [place] [address] Otolaryngology 01/14/25 Buck Hess DPM [address] [facility] [address] [place] [address] Podiatry 01/14/25 Rosanne Mosley 03/28/25 Evita Hanna Certified Tumor RegistrarMaintenance Craftsman 11/04/[address] [address] Physical Therapy 07/17/22 documented as of this encounter
--- OUTSIDE RECORDS SUMMARY | 2025-04-12 15:36 | XMS_ITS | Encounter Summary ---
Author Organization [employer] Address 75 [facility] 7t [place] [address] Care Team Providers Care Program Arranger Name Role Phone rKisty Wilder MD Primary Care Pro vider Bradly Gonzalez MD Unavailable Rk Smith Unavailable Buck Hess DPM Unavailable [phone] Rosanne Mosley Unavailable Reason for Visit * Reason Comments Med Refill Encounter Details Date Type Department Care Team (Late st Contact Info) Description 09/25/2023 Refill [facility] MEDICINE 230 [place], [place] [phone] Kristy Wilder MD 230 [place], [place] [phone] Primary insomnia Social History Tobacco Use Types [...] Description 04/15/2025 2:30 PM EST Office Visit [facility] OPTOMETRY 267 [place] [address] Yvonne Miller, OD 230 [place] [address] 04/27/2025 3:00 PM EST Office Visit [facility] ADULT DENTAL 505 [place] [address] Zi Lozano DDS 230 [place] [address] 05/10/2025 1:30 PM EST Clinical Support [facility] MEDICINE 230 [place] [address] 05/16/2025 2:00 PM EST Telemedicine [facility] MED & PEDS 505 [place] [address] Colette Diop, BRICE 505 [place] [address] documented as of this encounter Visit Diagnoses Diagnosis Primary insomnia Persistent disorder of initiating or maintaining sleep documented in this encounter Additional Health Concerns Assessment Noted Time PHQ-9 Depression Total Score: 16 023 11:20 AM EDT documented as of this encounter Care Teams Program Arranger Relationship Specialty Start Date End Date Kristy Wilder MD [address] [place] [address] PCP - General Internal Medicine 12/26/22 Bradly Gonzalez MD [address] [place] [address] Vascular Surgery 07/17/22 Rk Smith 100 [facility] [address] [place] [address] Otolaryngology 01/14/25 Buck Hess DPM 175 [facility] [address] [place] [address] Podiatry 01/14/25 Rosanne Mosley 03/28/25 Evita Hanna Computing ConsultantMexican Food Cook 11/04/24 [facility] [address] [place] [address] Physical Therapy 07/17/22 documented as of this encounter
--- OUTSIDE RECORDS SUMMARY | 2025-04-12 15:36 | XMS_ITS | Encounter Summary ---
Author Organization [employer] Address 75 [facility] 7 [place] [address] Care Team Providers Care Welfare Project Manager Name Role Phone Kristy Wilder MD Primary Care Pro vider Bradly Gonzalez MD Unavailable Rk Smith Unavailable Buck Hess DPM Unavailable [phone] Rosanne Mosley Unavailable Reason for Visit * Reason Onset Date Comments PT-1 08/03/2024 Encounter Details Date Type Department Care Team ([facility] st Contact Info) Description 08/03/2024 Telephone [facility] MEDICINE 230 [place], [place] [phone] Kristy Wilder MD 230 [place], [place] [phone] PT-1 Social History Tobacco Use Types Packs/Day [...] Y/N: Yes Provider name or facility name: [facility] Facility Address: [address] [place] [address] Escort needed: Y/N: No Do you have a wheelchair: Y/N: No If yes- Manual or electric: N/A Visits: Twice monthly documented in this encounter Plan of Treatment Upcoming Encounters Date Type Department Care Team (Late st Contact Info) Description 04/15/2025 2:30 PM EST Office Visit [facility] OPTOMETRY [address] [place] [address] Paul, Yvonne, OD 230 [place] [address] 04/27/2025 3:00 PM EST Office Visit [facility] CHC ADULT DENTAL [address] [place] [address] Zi Lozano, DDS 230 [place] [address] 05/10/2025 1:30 PM EST Clinical Support [facility] MEDICINE 230 [place] [address] 05/16/2025 2:00 PM EST Telemedicine [facility] CHC MED & PEDS 505 [place] [address] Colette Diop, RN [address] [place] [address] documented as of this encounter Visit Diagnoses Not on filedocumented in this encounter Additional Health Concerns Assessment Noted Time PHQ-9 Depression Total Score: 4 10/31/19 1:38 PM EDT documented as of this encounter Care Teams Welfare Project Manager Relationship Specialty Start Date End Date Kristy Wilder MD 230 [place] [address] PCP - General Internal Medicine 12/26/22 Bradly Gonzalez MD [address] [place] [address] Drive [address] [place] [address] Vascular Surgery 07/17/[address] [facility] [address] [place] [address] Otolaryngology 01/14/25 Buck Hess DPM [address] [place] [address] [address] [place] [address] Podiatry 01/14/25 Rosanne Mosley 03/28/25 Evita Hanna Buckle StaplerEntry Tech 11/04/24 [facility] [address] [place] [address] Physical Therapy 07/17/22 documented as of this encounter
--- OUTSIDE RECORDS SUMMARY | 2025-04-12 15:36 | XMS_ITS | Encounter Summary ---
Author Organization [employer] Address 75 [facility] 7 [place] [address] Care Team Providers Care Diving Supervisor Name Role Phone Kristy Wilder MD Primary Care Pro vider Bradly Gonzalez MD Unavailable Rk Smith Unavailable Buck Hess DPM Unavailable [phone] Rosanne Mosley Unavailable Reason for Visit * Reason Onset Date Comments Letter for School/Work 12/26/2022 Encounter Details Date Type Department Care Team (Late st Contact Info) Description 12/26/2022 Telephone [facility] MEDICINE 230 [place], [place] [phone] Kristy Wilder MD 230 [place], [place] [phone] Letter for School/Work Social History Tobacco Use [...] for PCP to make a letter for [employer] hours and dx on letter to be faxed to [phone] documented in this encounter Plan of Treatment Upcoming Encounters Date Type Department Care Team (Late st Contact Info) Description 04/15/2025 2:30 PM EST Office Visit [facility] OPTOMETRY [address] [place] [address] Yvonne Miller, OD 230 [place] [address] 04/27/2025 3:00 PM EST Office Visit [facility] ADULT DENTAL 505 [place] [address] Zi Lozano DDS 230 [place] [address] 05/10/2025 1:30 PM EST Clinical Support [facility] MEDICINE 230 [place] [address] 05/16/2025 2:00 PM EST Telemedicine [facility] MED & PEDS 505 [place] [address] Colette Diop, RN 505 [place] [address] documented as of this encounter Visit Diagnoses Not on filedocumented in this encounter Additional Health Concerns Assessment Noted Time PHQ-9 Depression Total Score: 11 022 1:16 PM EST documented as of this encounter Care Teams Diving Supervisor Relationship Specialty Start Date End Date Kristy Wilder MD 230 [place] [address] PCP - General Internal Medicine 12/26/22 Bradyl Gonzalez MD [address] [facility] [address] [place] [address] Vascular Surgery 07/17/22 Rk Smith [address] [place], [place] [address] Otolaryngology 01/14/25 Buck Hess DPM 175 [facility] [address] [place] [address] Podiatry 01/14/25 Rosanne Mosley 03/28/25 Evita Hanna Channel ExecutiveWeb Application Developer 11/04/[address] [address] Physical Therapy 07/17/22 documented as of this encounter
--- OUTSIDE RECORDS SUMMARY | 2025-04-12 15:36 | XMS_ITS | Clinical Summary ---
Author Organization [facility] Address [address] [place] [address] Care Team Providers Care Manager Enterprise Name Role Phone Bryce Terrietaijuice Partha Primary Care Provider [phone] Allergies Active Allergy Reactions Criticality Noted Date [...] series) 2042 Medical Devices Implanted Type Area Boarder Machine Device Identifier Shelf Expiration Date Model / Serial / Lot System Closure Suture Medicated Perclose Proglide 6fr - [id number] Implanted:Qty: 1 on 02/04/2019 at [facility] Implant [employer] [id number] 126 73-03 / / Coil Embolization Neurovascular [place] [employer] 0.035in [id number] Tornado - [id number] Implanted:Qty: 1 on 02/04/2019 at [facility] Implant [employer] [id number] 10/11/19 23 [id number] / / [id number] Coil Embolization Neurovascular [place] [employer] 0.035in [id number] Tornado - [id number] Implanted:Qty: 1 on 02/04/2019 at [facility] Implant [employer] [id number] 08/03/19 24 [id number] / / [id number] Coil Embolization Neurovascular [place] [employer] 0.035in [id number] Tornado - [id number] Implanted:Qty: 1 on 02/04/2019 at [facility] Implant [employer] [id number] 08/03/19 24 [id number] / / [id number] Coil Embolization Neurovascular [place] 0.035in 5xra3go Tornado - [id number] Implanted:Qty: 1 on 02/04/2019 at [facility] Implant [employer] [id number] 08/03/19 24 [id number] / / [id number] Insurance [facility] Care Teams Manager Enterprise Relationship Specialty Start Date End Date Davon Wu [address] [place] [address] PCP - General Internal Medicine 09/28/18
--- OUTSIDE RECORDS SUMMARY | 2025-04-12 15:36 | XMS_ITS ---
Author Organization [facility] Address [address] [place] [address] Care Team Providers Care Director Game Name Role Phone Davon Wu Primary Care Provider [phone] Active Problems Problem Noted Date Diagnosed Date [...]
--- OUTSIDE RECORDS SUMMARY | 2025-04-12 15:36 | XMS_ITS | Encounter Summary ---
Author Organization [employer] Address 75 [facility] 7 [place] [address] Care Team Providers Care Aircraft Manager Name Role Phone Kristy Wilder MD Primary Care Pro vider Bradly Gonzalez MD Unavailable Rk Smith Unavailable Buck Hess DPM Unavailable [phone] Rosanne Mosley Unavailable Reason for Visit * Reason Onset Date Comments Nurse Triage 08/08/2023 Encounter Details Date Type Department Care Team (Late st Contact Info) Description 08/08/2023 Telephone [facility] MEDICINE 230 [place], [place] [phone] Kristy Wilder MD 230 [place], [place] [phone] Nurse Triage Social History Tobacco Use Types [...] EST Triage call returned to patient with [employer] Tool Sharpener [id number]. Patient with soft voice and weakness. Received [...] to access 911 EMS for transport to [facility] ( followed by Oncologist) there. PCP [...] accepted this outcome Please contact pt at [phone] (Azeri) documented in this encounter Plan of Treatment Upcoming Encounters Date Type Department Care Team (Late st Contact Info) Description 04/15/2025 2:30 PM EST Office Visit [facility] OPTOMETRY [address] [place] [address] Yvonne Miller, OD 230 [place] [address] 04/27/2025 3:00 PM EST Office Visit [facility] ADULT DENTAL 505 [place] [address] Zi Lozano DDS 230 [place] [address] 05/10/2025 1:30 PM EST Clinical Support [facility] MEDICINE 230 [place] [address] 05/16/2025 2:00 PM EST Telemedicine [facility] MED & PEDS 505 [place] [address] Colette Diop, RN 505 [place] [address] documented as of this encounter Visit Diagnoses Not on filedocumented in this encounter Additional Health Concerns Assessment Noted Time PHQ-9 Depression Total Score: 16 023 11:20 AM EDT documented as of this encounter Care Teams Aircraft Manager Relationship Specialty Start Date End Date Kristy Wilder MD 230 [place] [address] PCP - General Internal Medicine 12/26/22 Bradly Gonzalez MD [address] [place] [address] Vascular Surgery 07/17/22 Rk Smith [address] [place] [address] Otolaryngology 01/14/25 Buck Hess DPM 175 [facility] [address] [place] [address] Podiatry 01/14/25 Rosanne Mosley 03/28/25 Evita Hanna Sound CutterTopline Beading Machine Tender 11/04/24 [facility] [address] [place] [address] Physical Therapy 07/17/22 documented as of this encounter
--- OUTSIDE RECORDS SUMMARY | 2025-04-12 15:36 | XMS_ITS | Encounter Summary ---
Author Organization [employer] Address 75 [facility] 7t [place] [address] Care Team Providers Care Key Filer Name Role Phone Khloe Fonseca GRAIN SACKER Primary Care Provider Kristy Ring MD Primary Care Pro vider Bradly Gonzalez MD Unavailable Rk Smith Unavailable Buck Hess DPM Unavailable [phone] Rosanne Mosley Unavailable Reason for Visit * Reason Onset Date Comments OTHER 12/24/2022 Encounter Details Date Type Department Care Team (Late st Contact Info) Description 12/24/2022 Telephone [facility] MEDICINE [address] [place] [address] Khloe Fonseca FNP OTHER Social History Tobacco [...] To clarify, please contact pt sister at [phone] documented in this encounter Plan of Treatment Upcoming Encounters Date Type Department Care Team (Late st Contact Info) Description 04/15/2025 2:30 PM EST Office Visit [facility] OPTOMETRY [address] [place] [address] PaulYvonne marlow, OD 230 [place] [address] 04/27/2025 3:00 PM EST Office Visit [facility] ADULT DENTAL 505 [place] [address] Zi Lozano DDS 230 [place] [address] 05/10/2025 1:30 PM EST Clinical Support [facility] MEDICINE 230 [place] [address] 05/16/2025 2:00 PM EST Telemedicine [facility] MED & PEDS 505 [place] [address] Colette Diop, BRICE 505 [place] [address] documented as of this encounter Visit Diagnoses Not on filedocumented in this encounter Additional Health Concerns Assessment Noted Time PHQ-9 Depression Total Score: 11 022 1:16 PM EST documented as of this encounter Care Teams Key Filer Relationship Specialty Start Date End Date Khloe Fonseca FNP PCP - General Family Medicine 02/05/22 12/25/22 Kristy Wilder MD 230 [place] [address] PCP - General Internal Medicine 12/26/22 Bradly Gonzalez MD [address] [place] [address] Vascular Surgery 07/17/22 Rk Smith 100 [facility] [address] [place] [address] Otolaryngology 01/14/25 Buck Hess DPM [address] [place] [address] Podiatry 01/14/25 Rosanne Mosley 03/28/25 Evita Hanna Batch FreezerYoghurt Maker 11/04/[address] [address] Physical Therapy 07/17/22 documented as of this encounter
--- OUTSIDE RECORDS SUMMARY | 2025-04-12 15:36 | XMS_ITS | Encounter Summary ---
Author Organization [employer] Address 75 [facility] 7t [place] [address] Care Team Providers Care Peanut Roaster Name Role Phone Khloe Fonseca [employer] Primary Care Provider Kristy Ring MD Primary Care Pro vider Bradly Gonzalez MD Unavailable Rk Smith Unavailable Buck Hess DPM Unavailable Rosanne Mosley Unavailable Encounter Details Date Type Department Care Team (Late Contact Info) Description 12/09/2022 Abstract [facility] MEDICINE [address] [place] [address] Khloe Fonseca FNP Social History Tobacco Use [...] Description 04/15/2025 2:30 PM EST Office Visit [facility] OPTOMETRY [address] [place] [address] Yvonne Miller, OD [address] [place] [address] 04/27/2025 3:00 PM EST Office Visit [facility] ADULT DENTAL [address] [place] [address] Zi Lozano DDS [address] [place] [address] 05/10/2025 1:30 PM EST Clinical Support [facility] [address] [place] [address] 05/16/2025 2:00 PM EST Telemedicine [facility] MED [facility] PEDS [address] [place] [address] Colette Diop, RN 505 [place] [address] documented as of this encounter Visit Diagnoses Not on filedocumented in this encounter Additional Health Concerns Assessment Noted Time PHQ-9 Depression Total Score: 11 022 1:16 PM EST documented as of this encounter Care Teams Peanut Roaster Relationship Specialty Start Date End Date Khloe Fonseca FNP PCP - General Family Medicine 02/05/22 12/25/22 Kristy Wilder MD [address] [place] [address] PCP - General Internal Medicine 12/26/22 Bradly Gonzalez MD [address] [place] [address] Vascular Surgery 07/17/22 Rk Smith 100 [facility] [address] [place], [place] [address] Otolaryngology 01/14/25 Buck Hess DPM [address] [facility] [address] [place] [address] Podiatry 01/14/25 Rosanne Mosley 03/28/25 Evita Hanna Ballistic TechnicianBoat Cleaner 11/04/24 [facility] [place] [address] [place] [address] Physical Therapy 07/17/22 documented as of this encounter
== END 2025-04-12 14:11 | disposition home or self-care (01) ==
LOC: HO.HPS 12:57
PROVIDERS: PCP Student in an Organized Health Care Education/Training Program; Visit Provider Hospitalist
DX: R91.8 Other nonspecific abnormal finding of lung field (principal); C64.1 Malignant neoplasm of right kidney, except renal pelvis; J30.9 Allergic rhinitis, unspecified
CPT/HCPCS: 99214

== ENCOUNTER → 2025-04-12 12:57 | Outpatient (BNVA) | payer MEDICAID, SELFPAY | PROVIDERS: PCP Student in an Organized Health Care Education/Training Program; Visit Provider Hospitalist | DX: C64.1 Malignant neoplasm of right kidney, except renal pelvis (principal); R91.8 Other nonspecific abnormal finding of lung field; J30.9 Allergic rhinitis, unspecified | CPT/HCPCS: 99212 ==

== ENCOUNTER 2025-04-15 08:30 | Outpatient (AMB) | payer MEDICAID, SELFPAY ==
--- NOTE | 2025-04-15 08:54 | A.OFFVIS_ITS ---
Vital Signs 04/15/25 08:55 Height 5 ft 5 in Weight 181 lb BMI 30.1 Intake Visit Reasons: R Leg Micro Milk Delivery Driver Required: No Accompanied by: Self / Same As Patient Allergies phenylephrine (From CONTAC-D COLD (PE)) Allergy (Unknown, Verified 04/15/25 08:55) EDEMA morphine Allergy (Verified 04/15/25 08:55) Rash Contac-D Allergy (Unknown, Uncoded 04/15/25 08:55) Unknown [facility] Medical History Chronic allergic rhinitis Pulmonary nodules Right renal mass Anxiety Depression Clear cell carcinoma of right kidney Surgical History Hx of colonoscopy History of esophagogastroduodenoscopy (EGD) S/P skin biopsy Status post hysterectomy Family History Maternal Uncle Stomach cancer Maternal Aunt Stomach cancer Paternal Aunt Colon cancer Sister Liver cancer Sister Skin cancer Social History Household Members: None Housing: Apartment Are you a primary family day care worker to a significant other at home: No Do you presently have visiting nurse or other home services: Yes Alcohol intake: former Patient Tobacco Use Status: Never used Tobacco service: No Current occupational status: unemployed Sexual orientation: Straight/Heterosexual Physical Exam Vital Signs: BMI result Body Mass Index 30.1 Office Procedures Vascular Office Procedure Details Details: Diagnosis: Right Leg varicose veins with inflammation Procedure: Right leg Microphlebectomy Anesthesia: Local Infiltration 12 cc, Tumescent: 0 cc. Varicose veins were marked in the standing position on the right leg and the patient was then placed in the prone position. The right lower extremity was prepared and draped to allow knee flexion in the sterile field. The patient had large superficial varicose veins with significant symptoms of pain. It was therefore determined to perform microphlebectomies of the clusters of varicose veins. The patient had bulging varicose veins which were previously marked in the standing position. A small stab incision was made longitudinally directly overlying the varicose vein in the calf and the varicose vein was grasped with a hemostat aided by a vein hook. It was then dissected as far proximally and distally as possible and avulsed. A total of 12 stab incisions were made and the procedure of stab phlebectomies was repeated 12 times. Hemostasis was checked and stab incision sites were closed with steri-strips and sterile dressing was given with gauze and krilex wrap followed by an melissa bandage. There were no complications and blood loss was minimal. Post-Op instructions were given and a follow-up appointment was recommended. 15047 - Phleb Veins, Extrem - up to 20 All charges added?: Procedure code (CPT) selection complete Assessment & Plan Assessment & Plan (1) Varicose veins of right lower extremity with inflammation: Comment: 01/30/2024 - right great saphenous vein Cyanoacralate ablation 04/15/2025 - right leg microphlebectomy Code(s): I83.11 - Varicose veins of right lower extremity with inflammation Category: Medical Plan: See op note Coding Level of Care Code Procedure Only Diagnoses Varicose veins of right lower extremity with inflammation I83.11 CPT Codes Details - Vascular 5: 30571 - Phleb Veins, Extrem - up to 20 ([id number])
[2025-04-15 08:55] VITALS: BMI 30.1
--- OUTSIDE RECORDS SUMMARY | 2025-04-15 09:03 | XMS_ITS | Clinical Summary ---
Author Organization [facility] Address [address] [place] [address] Phone Care Team Providers Care Shipyard Helper Name Role Phone Physician, No Pcp Primary [...] EDT Emergency [facility] Emergency [address] [place] [phone] Zoie Florentino MD Wyman, Tim, MD Zaidi, MD Tonja Zurita, MD Bharath Scott, MD Isaac Ewing, MD Juana Willis, MD Rufina Betts Mathew, MD Medication overdose, intentional self-harm, initial encounter ([facility] V24, [facility] V28) (Primary Dx) Discharge Disposition: Psychiatric Hospital from Last 3 Months Medical History Medical History Date Comments Diabetes mellitus ([facility] V24, [facility] V28) Hypertension Social History Tobacco Use [...] GEMUSE QTc 434 ms GEMUSE P Wave [place] 31 degrees GEMUSE R [place] 38 degrees GEMUSE T [place] 47 degrees GEMUSE ECG Interpretation Normal sinus [...] UNSOLICITED RESULTS Final Result Performing Organization Address City/[facility]/ZIP Co de Phone Number [facility] [address] [place] [address], [place] [phone] * Activated Partial Thromboplastin Time - STAT (03/26/2025 6:31 PM EDT) [facility] aPTT 32.6 24.1 - 39.3 sec LAB COAGULATION METHOD 03/26/2025 7:16 PM EDT [facility] Blood Venous blood specimen / Unknown Venipuncture / Unknown 03/26/2025 6:31 PM EDT 03/26/2025 6:53 PM EDT Ayden Vera MD LAB BLOOD ORDERABLES Shelli l Result Performing Organization Address City/[facility]/ZIP Co de Phone Number [facility] [address] [place] [address], [place] [phone] * Prothrombin Time with INR - STAT [...] l Result [facility] [address] [place] [address], [place] [phone] * (ABNORMAL) Drug abuse screen 8a panel, [...] Negative Negative LAB CHEMISTRY METHOD 10:50 AM [facility] Cannabinoid (THC) Screen, Ur Negative Negative LAB CHEMISTRY METHOD 10:50 AM [facility] Comment:Specimens from patie nts taking pantoprazole sodium (Protonix) have been shown to produce false positive results. Oxycodone Screen, Ur Negative Negative LAB CHEMISTRY METHOD 10:50 AM [facility] Fentanyl, Ur Negative Negative LAB CHEMISTRY METHOD 10:50 AM [facility] Urine Urine specimen [...] Res ult [facility] [address] [place] [address], [place] [phone] * Buprenorphine screen, urine (03/26/2025 9:34 AM [...] Res ult Performing Organization Address [facility] de Phone Number [facility] [address] [place] [address], [place] [phone] * Methadone, urine (03/26/2025 9:34 AM EDT) [...] ORDERABLES Final Res ult Performing Organization Address City/[facility]/ZIP Co de Phone Number [facility] [address] [place] [address], [place] [phone] * Phencyclidine, urine (03/26/2025 9:34 AM EDT) [...] Res ult Performing Organization Address [facility]/ZIP Co de Phone Number [facility] [address] [place] [address], [place] [phone] * Thyroid stimulating hormone with reflex to [...] Res ult [facility] [address] [place] [address], [place] [phone] * (ABNORMAL) CBC auto differential (2025 9:44 PM EDT) [facility] WBC 3.9(L) 4.8 - 10.8 K/mcL LAB HEMETOLOGY METHOD 2025 10:07 PM EDT [facility] RBC 3.20(L) 3.80 - 4.80 M/mcL [facility] Hemoglobin 10.9(L) 11.5 - 16.0 g/dL LAB HEMETOLOGY METHOD 2025 10:07 PM [facility] Hematocrit 32.6(L) 35.0 - 47.0 % LAB [facility]OLOGY METHOD 2025 10:[facility] MCV 101.9(H) 79.0 - 98.0 FL LAB HEMETOLOGY METHOD 2025 10:07 PM [facility] MCH 34.1(H) 27.0 - 32.0 pcg LAB HEMETOLOGY METHOD 2025 10:07 PM [facility] MCHC 33.4 32.0 - 37.0 g/dL LAB HEMETOLOGY METHOD 2025 10:07 PM [facility] RDW 13.0 11.0 - 15.0 % LAB HEMETOLOGY METHOD 2025 10:07 PM [facility] Platelets 147 130 - 400 K/mcL LAB HEMETOLOGY METHOD 2025 10:07 PM [facility] MPV 10.0 7.0 - 11.0 FL LAB HEMETOLOGY METHOD 2025 10:07 PM [facility] NRBC 0.0 <1.0 % LAB HEMETOLOGY METHOD 2025 10:07 PM [facility] NRBC Absolute 0.00 <0.10 K/mcL LAB HEMETOLOGY METHOD 2025 10:07 PM [facility] Neutrophils Relative 72.5 % LAB HEMETOLOGY METHOD 2025 10:07 PM [facility] Lymphocytes Relative 16.8 % LAB HEMETOLOGY METHOD 2025 10:07 PM EDT [facility] Monocytes Relative 8.8 % LAB HEMETOLOGY METHOD 2025 10:07 PM [facility] Eosinophils Relative 1.3 % LAB HEMETOLOGY METHOD 2025 10:07 PM [facility] Basophils Relative 0.3 % LAB HEMETOLOGY METHOD 2025 10:07 PM [facility] Immature Granulocytes Relative 0.3 % LAB HEMETOLOGY METHOD 2025 10:07 PM [facility] Neutrophils Absolute 2.80 1.50 - 7.00 K/mcL LAB HEMETOLOGY METHOD 2025 10:07 PM [facility] Lymphocytes Absolute 0.65(L) 1.00 - 5.00 K/mcL LAB HEMETOLOGY METHOD 2025 10:07 PM [facility] Monocytes Absolute 0.34 0.20 - 1.00 K/mcL LAB HEMETOLOGY METHOD 2025 10:07 PM [facility] Eosinophils Absolute 0.05 0.00 - 0.50 K/mcL LAB HEMETOLOGY METHOD 2025 10:07 PM [facility] Basophils Absolute 0.01 0.00 - 0.20 K/mcL LAB HEMETOLOGY METHOD 2025 10:07 PM [facility] Immature Granulocytes Absolute 0.01 0.00 - 0.03 K/mcL LAB HEMETOLOGY METHOD 2025 10:07 PM [facility] Blood Venous blood specimen / Unknown Venipuncture / Unknown 2025 9:44 PM EDT 2025 10:00 PM EDT Zoie Florentino MD LAB BLOOD ORDERABLES Final Res ult Performing Organization Address [facility] Co de Phone Number [facility] [address] [place] [address], [place] [phone] * (ABNORMAL) Magnesium (2025 9:44 PM EDT) Magnesium 1.8(L) 1.9 - 2.6 mg/dL LAB CHEMISTRY METHOD 03/26/2025 12:17 AM EDT [facility] Blood Venous blood specimen / Unknown Venipuncture / Unknown 2025 9:44 PM EDT 2025 10:00 PM EDT Zoie Florentino MD LAB BLOOD ORDERABLES Final Res ult Performing Organization Address [facility] de Phone Number [facility] [address] [place] [address], [place] [phone] * Ethanol (2025 9:44 PM EDT) Ethanol Level <3 0 - 10 mg/dL LAB CHEMISTRY METHOD 2025 10:47 PM EDT [facility] Blood Venous blood specimen / Unknown Venipuncture / Unknown 2025 9:44 PM EDT 2025 10:00 PM EDT Zoie Florentino MD LAB BLOOD ORDERABLES Final Res ult Performing Organization Address [facility] de Phone Number [facility] [address] [place] [address], [place] [phone] * (ABNORMAL) Acetaminophen level (2025 9:44 PM [...] Res ult Performing Organization Address [facility]/ZIP Co de Phone Number [facility] [address] [place] [address], [place] [phone] * (ABNORMAL) Salicylate level (2025 9:44 PM EDT) Salicylate Level <1.7(L) 2.0 - 29.0 mg/dL LAB CHEMISTRY METHOD 2025 10:47 PM EDT [facility] Blood Venous blood specimen / Unknown Venipuncture / Unknown 2025 9:44 PM EDT 2025 10:00 PM EDT us Zoie Florentino MD LAB BLOOD ORDERABLES Final Res ult Performing Organization Address [facility]/ZIP Co de Phone Number [facility] [address] [place] [address], [place] [phone] * (ABNORMAL) Comprehensive metabolic panel (2025 9:44 [...] mmol/L LAB CHEMISTRY METHOD 2025 10:48 PM [facility] Anion Gap 5 3 - 11 LAB CHEMISTRY METHOD 2025 10:48 PM [facility] Glucose 91 70 - 100 mg/dL LAB CHEMISTRY METHOD 2025 10:48 PM [facility] BUN 9 5 - 25 mg/dL LAB CHEMISTRY METHOD 2025 10:48 PM [facility] Creatinine 0.70 0.50 - 1.10 mg/dL LAB CHEMISTRY METHOD 2025 10:48 PM [facility] eGFR 100 >=60 mL/min/1. 73m2 LAB CHEMISTRY METHOD 2025 10:48 PM [facility] Comment:Calculation based on the Chronic Kidney Disease Epidemiology Collaboration (CKD-EPI) equation refit without adjustment for race. BUN/Creatinine Ratio 12.9 LAB CHEMISTRY METHOD 2025 10:48 PM [facility] Calcium 7.9(L) 8.5 - 10.5 mg/dL LAB CHEMISTRY METHOD 2025 10:48 PM [facility] AST (SGOT) 22 10 - 42 unit/L LAB CHEMISTRY METHOD 2025 10:48 PM [facility] ALT (SGPT) 24 10 - 60 unit/L LAB CHEMISTRY METHOD 2025 10:48 PM [facility] Alkaline Phosphatase 56 42 - 121 unit/L LAB CHEMISTRY METHOD 2025 10:48 PM [facility] Total Protein 5.2(L) 6.0 - 8.0 g/dL LAB CHEMISTRY METHOD 2025 10:48 PM [facility] Albumin 3.0(L) 3.2 - 5.0 g/dL LAB CHEMISTRY METHOD 2025 10:48 PM [facility] Total Bilirubin 0.4 0.0 - 1.4 mg/dL LAB CHEMISTRY METHOD 2025 10:48 PM EDT [facility] Blood Venous blood specimen / Unknown Venipuncture / Unknown 2025 9:44 PM EDT 2025 10:00 PM EDT us Zoie Florentino MD LAB BLOOD ORDERABLES Final Res ult [facility] [address] [place] [address], [place] [phone] from Last 3 Months Insurance MEDICAID - [place] Care Teams Shipyard Helper Relationship Specialty Start Date End Date Physician, No Pcp PCP - General 05/09/24
--- OUTSIDE RECORDS SUMMARY | 2025-04-15 09:03 | XMS_ITS | Encounter Summary ---
Author Organization [employer] Address 75 [facility] 7t [place] [address] Care Team Providers Care Commercial Sewing Instructor Name Role Phone Kristy Wilder MD Primary Care Pro vider Bradly Gonzalez MD Unavailable Rk Smith Unavailable Buck Hess DPM Unavailable [phone] Rosanne Mosley Unavailable Reason for Visit * Reason Comments Med Refill Encounter Details Date Type Department Care Team (Late st Contact Info) Description 02/25/2025 Refill [facility] MEDICINE [address] [place], [place] [phone] Kristy Wilder MD [address] [place], [place] [phone] Primary insomnia Social History Tobacco Use Types [...] Description 04/15/2025 2:30 PM EST Office Visit [facility] OPTOMETRY [address] [place] [address] PaulYvonne marlow, OD [address] [place] [address] 04/27/2025 3:00 PM EST Office Visit [facility] ADULT DENTAL [address] [place] [address] Zi Lozano DDS [address] [place] [address] 05/10/2025 1:30 PM EST Clinical Support [facility] MEDICINE [address] [place] [address] 05/16/2025 2:00 PM EST Telemedicine [facility] MED & PEDS [address] [place] [address] Colette Diop, BRCIE [address] [place] [address] documented as of this encounter Visit Diagnoses Diagnosis Primary insomnia Persistent disorder of initiating or maintaining sleep documented in this encounter Additional Health Concerns Assessment Noted Time PHQ-9 Depression Total Score: 12 025 9:32 AM EDT documented as of this encounter Care Teams Commercial Sewing Instructor Relationship Specialty Start Date End Date Kristy Wilder MD [address] [place] [address] PCP - General Internal Medicine 12/26/22 Bradly Gonzalez MD [address] [place] [address] Vascular Surgery 07/17/22 Rk Smith 100 [facility] [address] [place] [address] Otolaryngology 01/14/25 Buck Hess DPM [address] [place] [address] [address] [place] [address] Podiatry 01/14/25 Rosanne Mosley 03/28/25 Evita Hanna Hr CoordinatorEntertainment Reporter 11/04/[address] [address] Physical Therapy 07/17/22 documented as of this encounter
--- OUTSIDE RECORDS SUMMARY | 2025-04-15 09:03 | XMS_ITS | Encounter Summary ---
Author Organization [employer] Address 75 [facility] 7t [place] [address] Care Team Providers Care Stone Planer Name Role Phone Khloe Fonseca Primary Care Provider Kristy Ring MD Primary Care Pro vider Bradly Gonzalez MD Unavailable Rk Smith Unavailable Buck Hess DPM Unavailable [phone] Rosanne Mosley Unavailable Reason for Visit * Reason Onset Date Comments pt1 10/16/2022 Encounter Details Date Type Department Care Team (Late st Contact Info) Description 10/16/2022 Telephone [facility] MEDICINE [address] [place] [address] Khloe Fonseca FNP pt1 Social History Tobacco [...] Nannette Whittaker - 10/24/2022 10:19 AM EDT Cryptologist called and left voicemail for pt stating Pt1 Request was approved and she may call to schedule * Telephone Encounter - Nannette Whittaker - 10/24/2022 10:17 AM EDT Patient will recieve approval / denial letter via mail. PT-1 Request [id number] Pending - [facility] Pulmonology [address] [place] [address] [address] [place] * Telephone Encounter - Eddie Sousa - 10/21/2022 10:14 AM EDT Tc from pt requesting status on PT1. Date: October 22, 2022 Time: 2:45 pm address:[address] [place] [address] specialty:Pulmonology Center # visits: panel builder: no Wheelchair: no * Telephone Encounter - Marko Rodriguez - 10/16/2022 11:51 AM EDT Tc from pt requesting pt1 ride Date: october 22, 2022 Time: 2:45 pm address:[address] [place] [address] [place] [address] specialty:Pulmonology Center # visits: panel builder: no Wheelchair: no documented in this encounter Plan of Treatment Upcoming Encounters Date Type Department Care Team (Late st Contact Info) Description 04/15/2025 2:30 PM EST Office Visit [facility] OPTOMETRY [address] [place] [address] Paul, Yvonne, OD [address] [place] [address] 04/27/2025 3:00 PM EST Office Visit [facility] ADULT DENTAL [address] [place] [address] Zi Lozano, DDS [address] [place] [address] 05/10/2025 1:30 PM EST Clinical Support [facility] MEDICINE [address] [place] [address] 05/16/2025 2:00 PM EST Telemedicine [facility] MED & PEDS [address] [place] [address] Colette Diop, RN [address] [place] [address] documented as of this encounter Visit Diagnoses Not on filedocumented in this encounter Additional Health Concerns Assessment Noted Time PHQ-9 Depression Total Score: 11 022 1:16 PM EST documented as of this encounter Care Teams Stone Planer Relationship Specialty Start Date End Date Khloe Fonseca FNP PCP - General Family Medicine 02/05/22 12/25/22 Kristy Wilder MD [address] [place] [address] PCP - General Internal Medicine 12/26/22 Bradly Gonzalez MD [address] [facility] [address] [place] [address] Vascular Surgery 07/17/[address] [facility] [address] [place], [place] [address] Otolaryngology 01/14/25 Buck Hess DPM [address] [place] [address] [address] [place] [address] Podiatry 01/14/25 Rosanne Mosley 03/28/25 Evita Hanna Child PsychiatristGuest Relations Coordinator 11/04/24 [facility] CORE [address] [place] [address] Physical Therapy 07/17/22 documented as of this encounter
--- OUTSIDE RECORDS SUMMARY | 2025-04-15 09:03 | XMS_ITS ---
Author Organization [employer] Address 75 [facility] 7t [place] [address] Care Team Providers Care Field Services Manager Name Role Phone Kristy Wilder MD Primary Care Pro vider Bradly Gonzalez MD Unavailable Rk Smith Unavailable Buck Hess DPM Unavailable [phone] Rosanne Mosley Unavailable CHW Complex Status:Outreach In Progress (Enrolling) Start date:03/28/2025 Enrollment reason:ADT Feed Overview CP Assigned Patient ED- Pt went [place] [facility] on 03/25/25. Case Team Name Relationship Phone Rosanne Mosley(Responsible Staff) [phone] Continued Care and Services Coordination
--- OUTSIDE RECORDS SUMMARY | 2025-04-15 09:03 | XMS_ITS | Encounter Summary ---
Author Organization [employer] Address 75 [facility] 7t [place] [address] Care Team Providers Care Bar Tender Name Role Phone Kristy Wilder MD Primary Care Pro vider Bradly Gonzalez MD Unavailable Rk Smith Unavailable Buck Hess DPM Unavailable [phone] Rosanne Mosley Unavailable Reason for Visit * Reason Comments Med Refill Encounter Details Date Type Department Care Team (Late st Contact Info) Description 05/15/2023 Refill [facility] MEDICINE [address] [place], [place] [phone] Evelina Freeman MD [address] [place], [place] [phone] Social History Tobacco Use Types Packs/Day Years [...] Description 04/15/2025 2:30 PM EST Office Visit [facility] OPTOMETRY [address] [place] [address] Yvonne Miller, OD [address] [place] [address] 04/27/2025 3:00 PM EST Office Visit [facility] ADULT DENTAL [address] [place] [address] Zi Lozano DDS [address] [place] [address] 05/10/2025 1:30 PM EST Clinical Support [facility] MEDICINE [address] [place] [address] 05/16/2025 2:00 PM EST Telemedicine [facility] MED & PEDS [address] [place] [address] Colette Diop, RN [address] [place] [address] documented as of this encounter Visit Diagnoses Not on filedocumented in this encounter Additional Health Concerns Assessment Noted Time PHQ-9 Depression Total Score: 16 023 11:20 AM EDT documented as of this encounter Care Teams Bar Tender Relationship Specialty Start Date End Date Kristy Wilder MD [address] [place] [address] [place] [address] PCP - General Internal Medicine 12/26/22 Bradly Gonzalez MD [address] [place] [address] Vascular Surgery 07/17/22 Rk Smith 100 [facility] [address] [place] [address] Otolaryngology 01/14/25 Buck Hess DPM 175 [facility] [address] [place] [address] Podiatry 01/14/25 Rosanne Mosley 03/28/25 Evita Hanna Oracle Bpm ConsultantElectric Plater 11/04/24 [facility] [address] [place] [address] Physical Therapy 07/17/22 documented as of this encounter
--- OUTSIDE RECORDS SUMMARY | 2025-04-15 09:03 | XMS_ITS | Clinical Summary ---
Author Organization [employer] Address [address] [facility] 7t [place] [address] Care Team Providers Care Emergency Medical Tech Name Role Phone Kristy Wilder MD Primary Care Pro vider Bradly Gonzalez MD Unavailable Rk Smith Unavailable Buck Hess DPM Unavailable [phone] Rosanne Mosley Unavailable Allergies Active Allergy Reactions Criticality Noted Date Comments Erplekzid-Gz-Puutpsxzraybn Unknown 3 Hydromorphone Rash Low 06/28/2020 Other [...] 90 tablet 1 025 Active nystatin (Mycostatin) 073749 UNIT/GM powder Apply topically if needed each [...] lung cancer diagnosis 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 status post nephrectomy, at [facility] in January. 9.5 cm clear [...] kidney (CMS/HCC) 01/14/2023 03/11/2023 Renal cell carcinoma ([facility]/HCC) 01/14/2023 01/15/2023 Pulmonary nodules 12/10/2022 03/11/2023 Overview (12/23/2022): Pulm appt 12/09/22: The nodules are almost 8 mm in size based on my measurements. Plan CT-guided biopsy 12/19/22: Lung, left lower lobe, needle core biopsy: Metastatic clear cell renal cell carcinoma in keeping with patient's known renal primary. Lumbar back pain 04/25/2022 03/11/2023 Gross hematuria 12/18/2020 03/11/2023 Clear cell carcinoma of kidney ([facility]/HCC) 10/23/2018 12/10/2022 Renal mass 08/13/2018 03/11/2023 Encounters * This document contains information received from the source organization and may not represent a complete record from that organization. Date Type Department Care Team Description 04/06/2025 Telephone [facility] [address] [place] [address] Kristy Wilder MD caroline recall 04/04/2025 Orders Only [address] [address] Kristy Wilder MD Hypothyroidism, unspecified type (Primary Dx) 04/04/2025 Results Follow-Up [address] [address] Kristy Wilder MD TSH, T4, Free, Comprehensive Metabolic Panel, Lipid Panel, Standard 04/04/2025 Orders Only GENERIC EXTERNAL DATA DEPARTMENT Provider, Generic External Data 04/04/2025 Refill [facility] [address] [place] [address] Kristy Wilder MD Type 2 diabetes mellitus with other specified complication, without long-term current use of insulin (HCC) 03/29/2025 Patient Outreach [facility] [address] [place], [place] [phone] Kristy Wilder MD Care Coordination ( Care Coordination chart review ) 03/28/2025 Patient Outreach [facility] [address] [place] [phone] Kristy Wilder MD 03/22/2025 Refill [facility] [address] [place], [place] [phone] Kristy Wilder MD Acquired hypothyroidism 03/20/2025 Refill [facility] [address] [place], [place] [phone] Kristy Wilder MD 03/15/[address] [phone] Kristy Wilder MD Nurse Triage 03/11/2025 Refill [facility] [address] [place] [address] Kristy Wilder MD Therapeutic opioid induced constipation 03/08/2025 10:45 AM EDT Office Visit [address] [address] Kristy Wilder MD Varicose veins of lower extremity, unspecified laterality, unspecified whether complicated (Primary Dx); Encounter for vaccination; Encounter for immunization; Essential hypertension; Varicose veins of both lower extremities, unspecified whether complicated; Type 2 diabetes mellitus with other specified complication, without long-term current use of insulin ([facility]); Health care maintenance; Depressive disorder; Memory loss 03/08/2025 Travel 03/07/2025 Telephone [facility] [address] [place] [address] Kristy Wilder MD chart prep 03/02/[address] [phone] Kristy Wilder MD Primary hypertension; Mixed hyperlipidemia 03/01/2025 10:00 AM EDT Office Visit [facility] [address] [place] [address] Zi Lozano, CRISTIANS 02/28/2025 Patient Outreach [facility] [address] [place] [address] Kristy Wilder MD Pre-visit Planning (SDOH screening was completed on 09/20/2024) 02/28/2025 Refill [facility] [address] [place] [address] Kristy Wilder MD Primary insomnia 02/25/2025 Refill [facility] [address] [place] [address] Kristy Wilder MD Primary insomnia 02/22/2025 2:00 PM EDT Clinical Support [facility] [address] [place] [address] Colette Diop RN Back pain, unspecified back location, unspecified back pain laterality, unspecified chronicity 02/22/2025 Refill [facility] [address] [place] [address] Colette Diop RN Back pain, unspecified back location, unspecified back pain laterality, unspecified chronicity 02/22/2025 Travel 02/09/2025 Refill [facility] [address] [place] [address] Kristy Wilder MD 01/31/2025 Refill [facility] [address] [place] [address] Kristy Wilder MD Primary insomnia 01/17/2025 Refill [facility] [address] [place] [address] Kristy Wilder MD 01/14/2025 9:45 AM EDT Office Visit [facility] [address] [place] [address] Kristy Wilder MD Essential hypertension (Primary Dx); Type 2 diabetes mellitus with other specified complication, without long-term current use of insulin (CMS/HCC); Obesity, unspecified class, unspecified obesity type, unspecified whether serious comorbidity present; Health care maintenance; Malignant neoplasm metastatic to lung, unspecified laterality (CMS/HCC); Renal cell carcinoma of right kidney (CMS/HCC); Anxiety; Depressive disorder; Transaminitis 01/14/2025 Travel 01/13/2025 Telephone [facility] [address] [place] [address] Kristy Wilder MD chart prep from Last 3 Months Immunizations Immunization Administration [...] EST Office Visit [facility] [address] [place] [address] Yvonne Miller, OD [address] [place] [address] 04/27/2025 3:00 PM EST Office Visit [facility] [address] [place] [address] Zi Lozano DDS [address] [place] [address] 05/10/2025 1:30 PM EST Clinical Support [facility] [address] [place] [address] 05/16/2025 2:00 PM EST Telemedicine [facility] [address] [place] [address] Colette Diop, RN [address] [place] [address] Health Maintenance Due Date Last Done Comments [...] 03/17/2026 03/17/2024, 1002/2024, 03/17/2024, Additional history exists Lipid Panel 04/04/2026 [...] Stimulating Hormone 5.82(H) 0.32 - 4.0 uIU/mL [facility] Comment:Note: A sustained TS H level above 2.5 uIU/mL may warrant further investigation. TSH 3rd Generation ([facility]) Blood Venous blood specimen / Unknown 04/04/2025 9:49 AM EDT 04/04/2025 11:39 AM EDT us Kristy Mosley MD LAB BLOOD ORDERAB LES Final Result [facility] [address] [place] [phone] * T4, Free (04/04/2025 9:49 AM EDT) Free T4 (Free Thyroxine) 0.94 0.71 - 1.85 ng/dL [facility] Blood Venous blood specimen / Unknown 04/04/2025 9:49 AM EDT 04/04/2025 11:39 AM EDT us Kristy Mosley MD LAB BLOOD ORDERAB LES Final Result [facility] [address] [place] [address] [phone] * (ABNORMAL) Lipid Panel, Standard (04/04/2025 9:49 AM EDT) Triglycerides 126 <150 mg/dL [facility] Comment:Desirable Triglyceri de: less than 150 mg/dLBorderline High Triglyceride 150-199 mg/dLHigh Triglyceride: 200-499 mg/dLVery High Triglyceride: greater than or equal to 5OO mg/dL Cholesterol 161 <200 mg/dL [facility] Comment:Desirable Cholestero l: less than 200 mg/dLBorderline High Cholesterol: 200-239 mg/dLHigh Cholesterol: greater than 239 mg/dL LDL Cholesterol Calculated 105(H) <100 mg/dL [facility] Comment:Desirable LDL: less than 100 mg/dLNear Optimal/Above Optimal LDL: 110- 129 mg/dLBorderline High LDL: 130-159 mg/dLHigh LDL: 160-189 mg/dLVery High LDL: greater than or equal to 190 mg/dL HDL Cholesterol 31(L) >40 mg/dL [facility] Comment:Desirable HDL: great er than 40 mg/dL Note: This HDL assay may give artificially low results in patients with liver disease. Blood Venous blood specimen / Unknown 04/04/2025 9:49 AM EDT 04/04/2025 11:39 AM EDT us Kristy Mosley MD LAB BLOOD ORDERAB LES Final Result Performing Organization Address City/[facility]/ZIP Co de Phone Number [facility] [address] [place] [address] [phone] * (ABNORMAL) Comprehensive Metabolic Panel (04/04/2025 9:49 AM EDT) Only the most recent of2 resultswithin the time period is included. Sodium 143 135 - 145 mmol/L [facility] Potassium 4.5 3.3 - 5.1 mmol/L [facility] Chloride 111(H) 96 - 108 mmol/L [facility] Carbon Dioxide 29 22 - 29 mmol/L [facility] Anion Gap 8(L) 12 - 20 [facility] Urea Nitrogen (BUN) 15 9 - 16 mg/dL [facility] Creatinine, Serum 0.92 0.5 - 1.4 mg/dL [facility] Estimated Glomerular Filt Rate >60 [facility] Comment:Chronic Kidney Disea se: Estimated GFR < 60 mL/min/1.74g7Cricyi Kidney Disease: Estimated GFR < 15 mL/min/1.73m2 Glucose 89 60 - 115 mg/dL [facility] Calcium 9.1 8.4 - 10.2 mg/dL [facility] Bilirubin, Total 0.4 0.0 - 1.0 mg/dL [facility] Aspartate Amino Transferase 32(H) 5 - 31 U/L [facility] Alanine Aminotransferase 21 0 - 31 U/L [facility] Total Protein 6.5 6.5 - 8.0 g/dL [facility] Albumin Level 4.1 3.5 - 5.0 g/dL [facility] Alkaline Phosphatase 58 39 - 117 U/L [facility] 04/04/2025 9:49 AM EDT 04/04/2025 11:39 AM EDT us Generic External Data Provider LAB BLOOD ORDERAB LES Final Result Performing Organization Address City/[facility]/ZIP Co de Phone Number [facility] [address] [place] [phone] [phone] * (ABNORMAL) POCT KAJAL-14 Urine Drug [...] PM EDT . Internal Pass Control Lot# [id number] Exp: 04-08-26 us Kristy Mosley MD POINT OF CARE NERY T ENTER/EDIT ORDERABLES Final Result * Albumin, Random Urine W/Creatinine (12/22/2024 9:56 AM EDT) Creatinine, Urine 257.42 mg/dL [facility] Microalbumin Urine 23.0 mg/L [facility] Microalbum Creatinine Ratio Ur 8.9 <30 ug/mg cr [facility] Comment:Albumin/Creatinine R atio Reference Ranges: Normal: < 30 ug/mg creatinine Microalbuminuria: 30 - 300 ug/mg creatinineClinical Albuminuria: > 300 ug/mg creatinine Urine (Urine, Random) 12/22/2024 9:56 AM EDT 12/22/2024 11:08 AM EDT us Kristy Mosley MD LAB URINE ORDERAB LES Final Result [facility] [address] [place] [address] [phone] * Hepatitis C Antibody with Reflex to HCV, RNA, Quantitative, Real-Time PCR (12/22/2024 9:56 AM EDT) Hepatitis C Antibody Nonreactive Nonreactive [facility] Comment:Antibodies to HCV no t detected; does not exclude early acuteHCV infection. Blood Venous blood specimen / Unknown 12/22/2024 9:56 AM EDT 12/22/2024 11:07 AM EDT us Kristy Mosley MD LAB BLOOD ORDERAB LES Final Result Performing Organization Address [facility]/ZIP Co de Phone Number [facility] [address] [place] [phone] * HIV-1/2 Antigen and Antibodies, Fourth Generation, with Reflexes (12/22/2024 9:56 AM EDT) Pathologist [facility] HIV AB/AG Nonreactive Nonreactive [facility] Comment:HIV-1 p24 Ag and/or HIV-1/HIV-2 Ab not detected.A test result that is nonreactive does not exclude thepossibility of exposure to or infection with HIV-1 and/orHIV-2. Nonreactive results in this assay for individualswith prior exposure to HIV-1 and/or HIV-2 may be due toantigen and antibody levels that are below the limit ofdetection of this assay.The [employer] HIV Ag/Ab Combo assay result andsupplemental assay results should be interpreted inconjunction with the patient's clinical presentation,history and other laboratory results. If the results areinconsistent with clinical evidence, additional testing issuggested to confirm the result. Blood Venous blood specimen / Unknown 12/22/2024 9:56 AM EDT 12/22/2024 11:07 AM EDT us Kristy Mosley MD LAB BLOOD ORDERAB LES Final Result Performing Organization Address City/[facility]/ZIP Co de Phone Number [facility] [address] [place] [phone] * (ABNORMAL) Hemoglobin A1c (12/22/2024 9:56 AM EDT) Hemoglobin A1c 6.7(H) <6.0 % [facility] Comment:Hemoglobin A1C Refer ence Range Adults: 4.8 - 6.0 % Non diabetic: < 6.0 % Goal: < 7.0 %Additional Action Suggested: > 8.0 %Note: Hemoglobin A1c results are invalid for patients with abnormal amounts of HbF. Blood transfusions may impact the HbA1c concentration in the patient sample. Estimated Average Glucose 146 mg/dL [facility] Comment:eAG = Estimated ave rage glucose which is %A1C expressed asaverage glucose, using the formula of the R5M-YtqsybeSiuznie Glucose study (ADAG), Diabetes Care, Vol.31,#8,Jan. 2007 Blood Venous blood specimen / Unknown 12/22/2024 9:56 AM EDT 12/22/2024 11:09 AM EDT Kristy Mosley MD LAB BLOOD ORDERAB LES Final Result [facility] [address] [place] [address] [phone] * BI Mammogram Screening Tomosynthesis Bilateral (12/08/2024 1:55 PM EDT) Anatomical Region Laterality Modality Breast Bilateral Mammography 12/08/2024 1:55 PM EDT Narrative 12/19/2024 9:17 PM EDT [facility] [address] [place] [address] [place] [address] Mammography Report Signed Patient: Krys Gillis MR# : [id number] : 1965 Acct:[id number] Age/Sex: 59 / F ADM Date: 12/08/24 Loc: NINA Attending Dr: Kristy Mosley MD Ordering Physician: Kristy Wilder MD Re sults: 1Negative Date of Service: 12/08/24 Follow Up: 1 Year From Orig inal Mammogram Procedure(s): MM tomosynthesis screening BI Accession Number(s): [id number] cc: Kristy Wilder MD EXAMINATION: MM SCREENING [...] 12/19/24 2114 DD/ 1355 TD/TT: 12/08/24 1410 Sponge Clipper: Procedure Note Donotuseinterpreter, Image - 12/19/2024 [facility] [address] [place] [address] Mammography Report Signed Patient: Krys Gillis# : [id number] : 1965Acct:[id number] Age/Sex: 59 / FADM Date: 12/08/24 Loc: DINO.DEBORAHO Attending Dr: Kristy Mosley MD Ordering Physician: Kristy Wilder sults: 1Negative Date of Service: 12/08/24Follow Up: 1 Year From Orig inal Mammogram Procedure(s): MM tomosynthesis screening BI Accession Number(s): [id number] cc: Kristy Wilder MD EXAMINATION: MM SCREENING [...] 12/19/24 2114 DD/ 1355 TD/TT: 12/08/24 1410 Sponge Clipper: Kirsty Mosley MD IMG BI PROCEDURES Edited Result - Final * Pap Smear (11/01/2020) Pap smear Performed Historical Provider HEALTH MAINTENANCE Final Result * Colonoscopy (11/23/2018) Colonoscopy Performed Historical Provider HEALTH MAINTENANCE Edited Result - Final from Last 3 Months or Most Recently Relevant to Health Maintenance Insurance [facility] C3 DENTAL-[facility] MEDICAID STAND ADULT Care Teams Emergency Medical Tech Relationship Specialty Start Date End Date Kristy Wilder MD [address] [place] [phone] PCP - General Internal Medicine 12/26/22 Bradly Gonzalez MD [address] [place] [address] Vascular Surgery 07/17/22 Rk Smith [address] [place] [address] Otolaryngology 01/14/25 Buck Hess DPM [address] [place] [address] [address] [place] [address] Podiatry 01/14/25 Rosanne Mosley 03/28/25 Evita Hanna Sand Plant AttendantMortgage Protection Specialist 11/04/24 [facility] [address] [place] [address] Physical Therapy 07/17/22
--- OUTSIDE RECORDS SUMMARY | 2025-04-15 09:03 | XMS_ITS | Encounter Summary ---
Author Organization [employer] Address [address] [facility] 7t [place] [address] Care Team Providers Care Photo Technologist Name Role Phone Kristy Wilder MD Primary Care Pro vider Bradly Gonzalez MD Unavailable Rk Smith Unavailable Buck Hess DPM Unavailable [phone] Rosanne Mosley Unavailable Reason for Visit * [...] (Late st Contact Info) Description 02/11/2023 Refill [facility] [address] [place] [address] [phone] Kristy Wilder MD [address] [place], [place] [phone] Primary insomnia; Chronic low back pain, unspecified [...] Description 04/15/2025 2:30 PM EST Office Visit [facility] [address] [place] [address] Yvonne Miller, OD [address] [place] [address] 04/27/2025 3:00 PM EST Office Visit [facility] [address] [place] [address] Zi Lozano DDS [address] [place] [address] 05/10/2025 1:30 PM EST Clinical Support [facility] [address] [place] [address] 05/16/2025 2:00 PM EST Telemedicine [facility] [address] [place] [address] Colette Diop, RN [address] [place] [address] documented as of this encounter Visit Diagnoses Diagnosis Primary insomnia Persistent disorder of initiating or maintaining sleep Chronic low back pain, unspecified back pain laterality, unspecified whether sciatica present documented in this encounter Additional Health Concerns Assessment Noted Time PHQ-9 Depression Total Score: 11 022 1:16 PM EST documented as of this encounter Care Teams Photo Technologist Relationship Specialty Start Date End Date Kristy Wilder MD [address] [place] [address] PCP - General Internal Medicine 12/26/22 Bradly Gonzalez MD [address] [place] [address] Vascular Surgery 07/17/22 Rk Smith [address] [facility] [address] [place] [address] Otolaryngology 01/14/25 Buck Hess DPM [address] [facility] [address] [place] [address] Podiatry 01/14/25 Rosanne Mosley 03/28/25 Evita Hanna Calendar Control Clerk Blood BankHr Business Partner 11/04/24 [facility] [address] [place] [address] Physical Therapy 07/17/22 documented as of this encounter
--- OUTSIDE RECORDS SUMMARY | 2025-04-15 09:03 | XMS_ITS | Encounter Summary ---
Author Organization [employer] Address [address] [facility] 7t [place] [address] Care Team Providers Care Roving Department End Finder Name Role Phone Khloe Fonseca GARAGE DOOR TECHNICIAN Primary Care Provider Kristy Ring MD Primary Care Pro vider Bradly Gonzalez MD Unavailable Rk Smith Unavailable Buck Hess DPM Unavailable [phone] Rosanne Mosley Unavailable Reason for Visit * Reason Onset Date Comments OTHER 12/24/2022 Encounter Details Date Type Department Care Team (Late st Contact Info) Description 12/24/2022 Telephone [facility] [address] [place] [address] Khloe Fonseca FNP OTHER Social History Tobacco [...] To clarify, please contact pt sister at [phone] documented in this encounter Plan of Treatment Upcoming Encounters Date Type Department Care Team (Late st Contact Info) Description 04/15/2025 2:30 PM EST Office Visit [facility] [address] [place] [address] PaulYvonne marlow, OD [address] [place] [address] 04/27/2025 3:00 PM EST Office Visit [facility] [address] [place] [address] Zi Lozano DDS [address] [place] [address] 05/10/2025 1:30 PM EST Clinical Support [facility] [address] [place] [address] 05/16/2025 2:00 PM EST Telemedicine [facility] [address] [place] [address] Colette Diop, BRICE [address] [place] [address] documented as of this encounter Visit Diagnoses Not on filedocumented in this encounter Additional Health Concerns Assessment Noted Time PHQ-9 Depression Total Score: 11 022 1:16 PM EST documented as of this encounter Care Teams Roving Department End Finder Relationship Specialty Start Date End Date Khloe Fonseca FNP PCP - General Family Medicine 02/05/22 12/25/22 Kristy Wilder MD [address] [place] [address] PCP - General Internal Medicine 12/26/22 Bradly Gonzalez MD [address] [place] [address] Vascular Surgery 07/17/22 Rk Smith 100 [facility] [address] [place] [address] Otolaryngology 01/14/25 Buck Hess DPM [address] [place] [address] Podiatry 01/14/25 Rosanne Mosley 03/28/25 Evita Hanna 911 DispatcherDirector Enterprise Sales 11/04/[address] [address] Physical Therapy 07/17/22 documented as of this encounter
--- OUTSIDE RECORDS SUMMARY | 2025-04-15 09:03 | XMS_ITS | Encounter Summary ---
Author Organization [employer] Address [address] [facility] 7t [place] [address] Care Team Providers Care Manager Care Name Role Phone Khloe Fonseca Primary Care Provider Kristy Ring MD Primary Care Pro vider Bradly Gonzalez MD Unavailable Rk Smith Unavailable Buck Hess DPM Unavailable Rosanne Mosley Unavailable Reason for Visit * Reason Onset Date Comments pt1 10/03/2022 Encounter Details Date Type Department Care Team (Late st Contact Info) Description 10/03/2022 Telephone [facility] [address] [place] [address] Khloe Fonseca FNP pt1 Social History Tobacco [...] 3 10/03/2022 9:34 AM EDT Jessenia Boston, SHIP CARPENTER Not being able to stop or control [...] might happen 3 10/03/2022 9:34 AM EDT Jennfier Boston LICSW SILVESTRE-7 Total Score 21 10/03/2022 9:34 AM EDT Jennifer Boston LICSW documented as of this encounter Miscellaneous Notes * Telephone Encounter - Marko Rodriguez - 10/03/2022 4:21 PM EDT Tc from pt requesting a pt1 ride Date: oct 07 2022 Time: 2:30 pm address: [address] [place] [address] [id number], [place] [address] specialty: # visits: supervisor sintering plant: no Wheelchair: no Date:10/23/22 Time:02 pm address: [facility] specialty: PCP # visits: supervisor sintering plant: no Wheelchair: no Date:11/07/22 Time: 1:30 address: [facility] specialty: PCP # visits: supervisor sintering plant: no Wheelchair:no documented in this encounter Plan of Treatment Upcoming Encounters Date Type Department Care Team (Late st Contact Info) Description 04/15/2025 2:30 PM EST Office Visit [facility] [address] [place] [address] Yvonne Miller, OD [address] [place] [address] 04/27/2025 3:00 PM EST Office Visit [facility] [address] [place], [place] [phone] Zi Lozano DDS [address] [place] [address] 05/10/2025 1:30 PM EST Clinical Support [facility] [address] [place] [address] 05/16/2025 2:00 PM EST Telemedicine [facility] [address] [place], [place] [phone] Colette Diop, RN [address] [place] [address] documented as of this encounter Visit Diagnoses Not on filedocumented in this encounter Additional Health Concerns Assessment Noted Time PHQ-9 Depression Total Score: 11 022 1:16 PM EST documented as of this encounter Care Teams Manager Care Relationship Specialty Start Date End Date Khloe Fonseca FNP PCP - General Family Medicine 02/05/22 12/25/22 Kristy Wilder MD [address] [place] [address] PCP - General Internal Medicine 12/26/22 Bradly Gonzalez MD [address] [place] [address] Vascular Surgery 07/17/22 Rk Smith 100 [facility] [address] [place] [address] Otolaryngology 01/14/25 Buck Hess DPM [address] [place] [address] [place] [address] Podiatry 01/14/25 Rosanne Mosley 03/28/25 Evita Hanna [employer] General Sales ManagerSupervisory Examiner 11/04/24 [facility] [address] [place] [address] Physical Therapy 07/17/22 documented as of this encounter
--- OUTSIDE RECORDS SUMMARY | 2025-04-15 09:03 | XMS_ITS | Encounter Summary ---
Author Organization [employer] Address [address] [facility] [address] [place] [address] Care Team Providers Care Tawer Name Role Phone Kristy Wilder MD Primary Care Pro vider Bradly Gonzalez MD Unavailable Rk Smith Unavailable Buck Hess DPM Unavailable [phone] Rosanne Mosley Unavailable Reason for Visit * Reason Onset Date Comments PT-1 08/03/2024 Encounter Details Date Type Department Care Team ([facility] st Contact Info) Description 08/03/2024 Telephone [facility] MEDICINE [address] [place], [place] [phone] Kristy Wilder MD 230 [place], [place] [phone] PT-1 Social History Tobacco Use Types Packs/Day [...] Y/N: Yes Provider name or facility name: [facility] Facility Address: [address] [place] [address] Escort needed: Y/N: No Do you have a wheelchair: Y/N: No If yes- Manual or electric: N/A Visits: Twice monthly documented in this encounter Plan of Treatment Upcoming Encounters Date Type Department Care Team (Late st Contact Info) Description 04/15/2025 2:30 PM EST Office Visit [facility] OPTOMETRY [address] [place] [address] Paul, Yvonne, OD 230 [place] [address] 04/27/2025 3:00 PM EST Office Visit [facility] ADULT DENTAL [address] [place] [address] Zi Lozano, DDS 230 [place] [address] 05/10/2025 1:30 PM EST Clinical Support [facility] MEDICINE 230 [place] [address] 05/16/2025 2:00 PM EST Telemedicine [facility] MED & PEDS 505 [place] [address] Colette Diop, RN [address] [place] [address] documented as of this encounter Visit Diagnoses Not on filedocumented in this encounter Additional Health Concerns Assessment Noted Time PHQ-9 Depression Total Score: 4 10/31/19 1:38 PM EDT documented as of this encounter Care Teams Tawer Relationship Specialty Start Date End Date Kristy Wilder MD 230 [place] [address] PCP - General Internal Medicine 12/26/22 Bradly Gonzalez MD [address] [place] [address] Drive [address] [place] [address] Vascular Surgery 07/17/22 Rk Smith 100 [facility] [address] [place] [address] Otolaryngology 01/14/25 Buck Hess DPM [address] [place] [address] [address] [place] [address] Podiatry 01/14/25 Rosanne Mosley 03/28/25 Evita Hanna Solar Installation SupervisorInfrastructure Manager 11/04/24 [facility] [address] [place] [address] Physical Therapy 07/17/22 documented as of this encounter
--- OUTSIDE RECORDS SUMMARY | 2025-04-15 09:03 | XMS_ITS | Clinical Summary ---
Author Organization [facility] Address [address] [place] [address] Care Team Providers Care Straightedge Worker Name Role Phone Unavailable Primary Care Provider [...] PM EDT Behavioral Health Visit [facility] [address] [place] [address] RUFUS MEDEROS [id number] Tono Zelaya, NOVAHNAlan from Last 3 Months [...] history exists Hepatitis C Screening Completed 12/22/2024 [id number] Completed 03/08/2025, 11/2021, 05/27/2021, Additional history exists Imm-Influenza Completed 03/08/2025, 08/2022, 05/14/2022, Additional history exists Cervical Ablation/Cold-Knife Conization Discontinued Cervical Cryotherapy Discontinued Colposcopy Discontinued Excision/Leep Discontinued HPV Genotyping Discontinued Vaginal Pap Discontinued Vulvoscopy Discontinued Insurance [place] [employer]
--- OUTSIDE RECORDS SUMMARY | 2025-04-15 09:03 | XMS_ITS | Encounter Summary ---
Author Organization [employer] Address [address] [facility] 7[address] [place] [address] Care Team Providers Care Coil Rewind Machine Operator Name Role Phone Kristy Wilder MD Primary Care Pro vider Bradly Gonzalez MD Unavailable Rk Smith Unavailable Buck Hess DPM Unavailable [phone] Rosanne Mosley Unavailable Reason for Visit * Reason Onset Date Comments Letter for School/Work 12/26/2022 Encounter Details Date Type Department Care Team (Late st Contact Info) Description 12/26/2022 Telephone [facility] MEDICINE 230 [place], [place] [phone] Kristy Wilder MD 230 [place], [place] [phone] Letter for School/Work Social History Tobacco Use [...] for 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 and dx on letter to be faxed to [phone] documented in this encounter Plan of Treatment Upcoming Encounters Date Type Department Care Team (Late st Contact Info) Description 04/15/2025 2:30 PM EST Office Visit [facility] OPTOMETRY 267 [place] [address] Yvonne Miller, OD 230 [place] [address] 04/27/2025 3:00 PM EST Office Visit [facility] ADULT DENTAL 505 [place] [address] Zi Lozano DDS 230 [place] [address] 05/10/2025 1:30 PM EST Clinical Support [facility] MEDICINE 230 [place] [address] 05/16/2025 2:00 PM EST Telemedicine [facility] MED & PEDS 505 [place] [address] Colette Diop, RN 505 [place] [address] documented as of this encounter Visit Diagnoses Not on filedocumented in this encounter Additional Health Concerns Assessment Noted Time PHQ-9 Depression Total Score: 11 022 1:16 PM EST documented as of this encounter Care Teams Coil Rewind Machine Operator Relationship Specialty Start Date End Date Kristy Wilder MD 230 [place] [address] PCP - General Internal Medicine 12/26/22 Bradly Gonzalez MD [address] [place] [address] Vascular Surgery 07/17/22 Rk Smith [address] [place] [address] Otolaryngology 01/14/25 Buck Hess DPM 175 [facility] [address] [place] [address] Podiatry 01/14/25 Rosanne Mosley 03/28/25 Evita Hanna Patriot Missile Air Defense ArtillerySnag Grinder 11/04/[address] [address] Physical Therapy 07/17/22 documented as of this encounter
--- OUTSIDE RECORDS SUMMARY | 2025-04-15 09:03 | XMS_ITS | Encounter Summary ---
Author Organization [employer] Address 75 [facility] 7t [place] [address] Care Team Providers Care Galvanometer Assembler Name Role Phone Kristy Wilder MD Primary Care Pro vider Bradly Gonzalez MD Unavailable Rk Smith Unavailable Buck Hess DPM Unavailable [phone] Rosanne Mosley Unavailable Reason for Visit * Reason Onset Date Comments Nurse Triage 08/08/2023 Encounter Details Date Type Department Care Team (Late st Contact Info) Description 08/08/2023 Telephone [facility] MEDICINE 230 [place], [place] [phone] Kristy Wilder MD 230 [place], [place] [phone] Nurse Triage Social History Tobacco Use Types [...] EST Triage call returned to patient with RFMicron Caul Fat Puller [id number]. Patient with soft voice and weakness. Received [...] to access 911 EMS for transport to [facility] ( followed by Oncologist) there. PCP [...] accepted this outcome Please contact pt at [phone] ([place]) documented in this encounter Plan of Treatment Upcoming Encounters Date Type Department Care Team (Late st Contact Info) Description 04/15/2025 2:30 PM EST Office Visit [facility] OPTOMETRY 267 [place] [address] Yvonne Miller, OD 230 [place] [address] 04/27/2025 3:00 PM EST Office Visit [facility] ADULT DENTAL 505 [place] [address] Zi Lozano DDS 230 [place] [address] 05/10/2025 1:30 PM EST Clinical Support [facility] MEDICINE 230 [place] [address] 05/16/2025 2:00 PM EST Telemedicine [facility] MED & PEDS 505 [place] [address] Colette Diop, RN 505 [place] [address] documented as of this encounter Visit Diagnoses Not on filedocumented in this encounter Additional Health Concerns Assessment Noted Time PHQ-9 Depression Total Score: 16 023 11:20 AM EDT documented as of this encounter Care Teams Galvanometer Assembler Relationship Specialty Start Date End Date Kristy Wilder MD 230 [place] [address] PCP - General Internal Medicine 12/26/22 Bradly Gonzalez MD [address] [place] [address] Vascular Surgery 07/17/22 Rk Smith [address] [place] [address] Otolaryngology 01/14/25 Buck Hess DPM 175 [facility] [address] [place] [address] Podiatry 01/14/25 Rosanne Mosley 03/28/25 Evita Hanna Hand EtcherRide Assembly Supervisor 11/04/24 [facility] [address] [place] [address] Physical Therapy 07/17/22 documented as of this encounter
--- OUTSIDE RECORDS SUMMARY | 2025-04-15 09:03 | XMS_ITS | Encounter Summary ---
Author Organization [employer] Address 75 [facility] 7t [place] [address] Care Team Providers Care Mechanic Marine Engine Name Role Phone Kristy Wilder MD Primary Care Pro vider Bradly Gonzalez MD Unavailable Rk Smith Unavailable Buck Hess DPM Unavailable [phone] Rosanne Mosley Unavailable Reason for Visit * Reason Comments Med Refill Encounter Details Date Type Department Care Team (Late st Contact Info) Description 09/10/2023 Refill [facility] MEDICINE 230 [place], [place] [phone] Kristy Wilder MD 230 [place], [place] [phone] Type 2 diabetes mellitus with diabetic polyneuropathy, without long-term current use of insulin ([facility]) Social History Tobacco Use Types Packs/Day Years [...] Description 04/15/2025 2:30 PM EST Office Visit [facility] OPTOMETRY 267 [place] [address] Yvonne Miller, OD 230 [place] [address] 04/27/2025 3:00 PM EST Office Visit [facility] ADULT DENTAL 505 [place] [address] Zi Lozano DDS 230 [place] [address] 05/10/2025 1:30 PM EST Clinical Support [facility] MEDICINE 230 [place] [address] 05/16/2025 2:00 PM EST Telemedicine [facility] MED & PEDS 505 [place] [address] Colette Diop, RN 505 [place] [address] documented as of this encounter Visit Diagnoses Diagnosis Type 2 diabetes mellitus with diabetic polyneuropathy, without long-term current use of insulin (HCC) documented in this encounter Additional Health Concerns Assessment Noted Time PHQ-9 Depression Total Score: 16 023 11:20 AM EDT documented as of this encounter Care Teams Mechanic Marine Engine Relationship Specialty Start Date End Date Kristy Wilder MD 230 [place] [address] PCP - General Internal Medicine 12/26/22 Bradly Gonzalez MD [address] [place] [address] Vascular Surgery 07/17/22 Rk Smith [address] [place], [place] [address] Otolaryngology 01/14/25 Buck Hess DPM 175 [facility] [address] [place] [address] Podiatry 01/14/25 Rosanne Mosley 03/28/25 Evita Hanna Svp Research And Strategic AnalysisSound Effects Person 11/04/[address] [address] Physical Therapy 07/17/22 documented as of this encounter
--- OUTSIDE RECORDS SUMMARY | 2025-04-15 09:03 | XMS_ITS | Encounter Summary ---
Author Organization [employer] Address 75 [facility] 7t h Floor [place] [phone] Care Team Providers Care Formulation Technician Name Role Phone Khole Fonseca MISSION ANALYST Primary Care Provider Kristy Ring MD Primary Care Pro vider Bradly Gonzalez MD Unavailable Rk Smith Unavailable Buck Hess DPM Unavailable [phone] Rosanne Mosley Unavailable Reason for Visit * Reason Onset Date Comments Med Refill [facility] VNA order 08/25/2022 Order # [id number] Encounter Details Date Type Department Care Team (Late st Contact Info) Description 08/25/2022 Refill [facility] MEDICINE 230 [place] [address] Khloe Fonseca FNP Type 2 diabetes mellitus without complication, without long-term current use of insulin ([facility]) Social History Tobacco Use Types Packs/Day Years [...] Description 04/15/2025 2:30 PM EST Office Visit [facility] OPTOMETRY 267 [place] [address] PaulYvonne marlow, OD 230 [place] [address] 04/27/2025 3:00 PM EST Office Visit [facility] ADULT DENTAL 505 [place], [place] [phone] Zi Lozano DDS 230 [place] [address] 05/10/2025 1:30 PM EST Clinical Support [facility] MEDICINE 230 [place] [address] 05/16/2025 2:00 PM EST Telemedicine [facility] MED & PEDS 505 [place], [place] [phone] Colette Diop RN 505 [place], [place] [phone] documented as of this encounter Visit Diagnoses Diagnosis Type 2 diabetes mellitus without complication, without long-term current use of insulin (HCC) documented in this encounter Additional Health Concerns Assessment Noted Time PHQ-9 Depression Total Score: 11 022 1:16 PM EST documented as of this encounter Care Teams Formulation Technician Relationship Specialty Start Date End Date Khloe Fonseca FNP PCP - General Family Medicine 02/05/22 12/25/22 Kristy Wilder MD 230 [place] [address] PCP - General Internal Medicine 12/26/22 Bradly Gonzalez MD [address] [place] [address] Vascular Surgery 07/17/22 Rk Smith 100 [address] [place], [place] [address] Otolaryngology 01/14/25 Buck Hess DPM [address] [place] [address] [address] [place] [address] Podiatry 01/14/25 Rosanne Mosley 03/28/25 Evita Hanna Veterinary Laboratory DiagnosticianAbstract Checker 11/04/24 [facility] [address] [place] [address] Physical Therapy 07/17/22 documented as of this encounter
--- OUTSIDE RECORDS SUMMARY | 2025-04-15 09:03 | XMS_ITS | Encounter Summary ---
Author Organization [employer] Address 75 [facility] 7t [place] [address] Care Team Providers Care Facilities Engineering Manager Name Role Phone Kristy Wilder MD Primary Care Pro vider Bradly Gonzalez MD Unavailable Rk Smith Unavailable Buck Hess DPM Unavailable [phone] Rosanne Mosley Unavailable Reason for Visit * Reason Onset Date Comments Reschedule 07/07/2023 Encounter Details Date Type Department Care Team ([facility] st Contact Info) Description 07/07/2023 Telephone [facility] MEDICINE 230 [place], [place] [phone] Kristy Wilder MD 230 [place], [place] [phone] Reschedule Social History Tobacco Use Types Packs/Day [...] Tc from pt requesting to r/s 07/25 HR PAYROLL COORDINATOR appointment due to pt having 2 appointments scheduled same day and will be doing chemo. Please contact pt at [phone] ([place]) documented in this encounter Plan of Treatment Upcoming Encounters Date Type Department Care Team (Late st Contact Info) Description 04/15/2025 2:30 PM EST Office Visit [facility] OPTOMETRY 267 [place] [address] Paul, Yvonne, OD 230 [place] [address] 04/27/2025 3:00 PM EST Office Visit [facility] ADULT DENTAL 505 [place] [address] Zi Lozano DDS 230 [place] [address] 05/10/2025 1:30 PM EST Clinical Support [facility] MEDICINE 230 [place] [address] 05/16/2025 2:00 PM EST Telemedicine [facility] MED & PEDS 505 [place] [address] Colette Diop, BRICE 505 [place] [address] documented as of this encounter Visit Diagnoses Not on filedocumented in this encounter Additional Health Concerns Assessment Noted Time PHQ-9 Depression Total Score: 16 023 11:20 AM EDT documented as of this encounter Care Teams Facilities Engineering Manager Relationship Specialty Start Date End Date Kristy Wilder MD 230 [place] [address] PCP - General Internal Medicine 12/26/22 Bradly Gonzalez MD [address] [place] [address] Vascular Surgery 07/17/22 Rk Smith 100 [facility] [address] [place] [address] Otolaryngology 01/14/25 Buck Hess DPM 175 [facility] [address] [place] [address] Podiatry 01/14/25 Rosanne Mosley 03/28/25 Evita Hanna Guest Service ManagerWomens Health Nurse Practitioner 11/04/[address] [address] Physical Therapy 07/17/22 documented as of this encounter
--- OUTSIDE RECORDS SUMMARY | 2025-04-15 09:03 | XMS_ITS | Encounter Summary ---
Author Organization [employer] Address 75 [facility] 7t [place] [address] Care Team Providers Care Auto Technician Name Role Phone Kristy Wilder MD Primary Care Pro vider Bradly Gonzalez MD Unavailable Rk Smith Unavailable Buck Hess DPM Unavailable Rosanne Mosley Unavailable Reason for Visit * Reason Comments Med Refill Encounter Details Date Type Department Care Team (Late st Contact Info) Description 09/25/2023 Refill [facility] MEDICINE 230 [place], [place] [phone] Kristy Wilder MD 230 [place], [place] [phone] Primary insomnia Social History Tobacco Use Types [...] 2:30 PM EST Office Visit [facility] OPTOMETRY 267 [place] [address] Yvonne Miller, OD 230 [place] [address] 04/27/2025 3:00 PM EST Office Visit [facility] ADULT DENTAL 505 [place] [address] Zi Lozano DDS 230 [place] [address] 05/10/2025 1:30 PM EST Clinical Support [facility] MEDICINE 230 [place] [address] 05/16/2025 2:00 PM EST Telemedicine [facility] MED & PEDS 505 [place] [address] Colette Diop, BRICE 505 [place] [address] documented as of this encounter Visit Diagnoses Diagnosis Primary insomnia Persistent disorder of initiating or maintaining sleep documented in this encounter Additional Health Concerns Assessment Noted Time PHQ-9 Depression Total Score: 16 023 11:20 AM EDT documented as of this encounter Care Teams Auto Technician Relationship Specialty Start Date End Date Kristy Wilder MD [address] [place] [address] PCP - General Internal Medicine 12/26/22 Bradly Gonzalez MD [address] [facility] [address] [place] [address] Vascular Surgery 07/17/22 Rk Smith 100 [facility] [address] [place] [address] Otolaryngology 01/14/25 Buck Hess DPM 175 [facility] [address] [place] [address] Podiatry 01/14/25 Rosanne Mosley 03/28/25 Evita Hanna Behavioral SpecialistMounter Hand 11/04/24 [facility] [address] [place] [address] Physical Therapy 07/17/22 documented as of this encounter
--- OUTSIDE RECORDS SUMMARY | 2025-04-15 09:04 | XMS_ITS | Encounter Summary ---
Author Organization [employer] Address 75 [facility] 7[address] [place] [address] Care Team Providers Care Care Taker Name Role Phone Kristy Wilder MD Primary Care Pro vider Bradly Gonzalez MD Unavailable Rk Smith Unavailable Buck Hess DPM Unavailable [phone] Rosanne Mosley Unavailable Reason for Visit * Reason Onset Date Comments PT-1 12/31/2024 Encounter Details Date Type Department Care Team ([facility] st Contact Info) Description 12/31/2024 Telephone [facility] MEDICINE 230 [place], [place] [phone] Kristy Wilder MD 230 [place], [place] [phone] PT-1 Social History Tobacco Use Types Packs/Day [...] Y/N: Yes Provider name or facility name: [facility] Facility Address: [address] [place] [address] Escort needed: Y/N: Yes Do you have a wheelchair: Y/N: No If yes- Manual or electric: N/A Visits: 3 times a month documented in this encounter Plan of Treatment Upcoming Encounters Date Type Department Care Team (Late st Contact Info) Description 04/15/2025 2:30 PM EST Office Visit [facility] OPTOMETRY 267 [place] [address] Yvonne Miller, OD 230 [place] [address] 04/27/2025 3:00 PM EST Office Visit [facility] CHC ADULT DENTAL [address] [place] [address] Zi Lozano DDS 230 [place] [address] 05/10/2025 1:30 PM EST Clinical Support [facility] MEDICINE 230 [place] [address] 05/16/2025 2:00 PM EST Telemedicine [facility] CHC MED & PEDS [address] [place] [address] Colette Diop, RN [address] [place] [address] documented as of this encounter Visit Diagnoses Not on filedocumented in this encounter Additional Health Concerns Assessment Noted Time PHQ-9 Depression Total Score: 16 025 2:11 PM EDT documented as of this encounter Care Teams Care Taker Relationship Specialty Start Date End Date Kristy Wilder MD 230 [place] [address] PCP - General Internal Medicine 12/26/22 Bradly Gonzalez MD [address] [place] [address] Vascular Surgery 07/17/22 Rk Smith 100 [facility] [address] [place] [address] Otolaryngology 01/14/25 Buck Hess DPM [address] [place] [address] 250 [place] [address] Podiatry 01/14/25 Rosanne Mosley 03/28/25 Evita Hanna Electric Switch TesterSignal Wirer 11/04/24 [facility] [address] [place] [address] Physical Therapy 07/17/22 documented as of this encounter
--- OUTSIDE RECORDS SUMMARY | 2025-04-15 09:04 | XMS_ITS ---
Author Organization [facility] Address [address] [place] [address] Care Team Providers Care Seat Builder Name Role Phone Davon Wu Primary Care Provider [phone] Active Problems Problem Noted Date Diagnosed Date [...]
--- OUTSIDE RECORDS SUMMARY | 2025-04-15 09:04 | XMS_ITS | Encounter Summary ---
Author Organization [facility] Address [address] [place] [address] Care Team Providers Care China Painter Name Role Phone Davon Wu Primary Care Provider [phone] Encounter Details Date Type Department Care Team (Late st Contact Info) Description 10/31/2020 Orders Only [facility] Xray [address] [place] [address] Winifred Winston MD [address] [place], [place] [phone] Social History Tobacco Use Types Packs/Day Years [...] on filedocumented in this encounter Care Teams China Painter Relationship Specialty Start Date End Date Davon Wu 230 [place] [address] PCP - General Internal Medicine 09/28/18 documented as of this encounter
--- OUTSIDE RECORDS SUMMARY | 2025-04-15 09:04 | XMS_ITS | Encounter Summary ---
Author Organization [employer] Address 75 [facility] 7t [place] [address] Care Team Providers Care Mold Dresser Name Role Phone Khloe Fonseca SCIENCE MANAGER Primary Care Provider Kristy Ring MD Primary Care Pro vider Bradly Gonzalez MD Unavailable Rk Smith Unavailable Buck Hess DPM Unavailable Rosanne Mosley Unavailable Encounter Details Date Type Department Care Team (Late Contact Info) Description 12/09/2022 Abstract [facility] MEDICINE 230 [place] [address] Khloe Fonseca FNP Social History Tobacco Use [...] Visit [facility] OPTOMETRY 267 [place] [address] Yvonne Miller, OD 230 [place] [address] 04/27/2025 3:00 PM EST Office Visit [facility] CHC ADULT DENTAL [address] [place] [address] Zi Lozano DDS 230 [place] [address] 05/10/2025 1:30 PM EST Clinical Support [facility] MEDICINE 230 [place] [address] 05/16/2025 2:00 PM EST Telemedicine [facility]C MED & PEDS 505 [place] [address] Colette Diop, RN 505 [place] [address] documented as of this encounter Visit Diagnoses Not on filedocumented in this encounter Additional Health Concerns Assessment Noted Time PHQ-9 Depression Total Score: 11 022 1:16 PM EST documented as of this encounter Care Teams Mold Dresser Relationship Specialty Start Date End Date Khloe Fonseca FNP PCP - General Family Medicine 02/05/22 12/25/22 Kristy Wilder MD 230 [place] [address] PCP - General Internal Medicine 12/26/22 Bradly Gonzalez MD [address] [place] [address] Vascular Surgery 07/17/22 Rk Smith 100 [facility] [address] [place] [address] Otolaryngology 01/14/25 Buck Hess DPM 175 [facility] [address] [place] [address] Podiatry 01/14/25 Rosanne Mosley 03/28/25 Evita Hanna Data Governance ConsultantActuarial Assistant 11/04/24 [facility] [address] [place] [address] Physical Therapy 07/17/22 documented as of this encounter
--- OUTSIDE RECORDS SUMMARY | 2025-04-15 09:04 | XMS_ITS | Clinical Summary ---
Author Organization [facility] Address [address] [place] [address] Care Team Providers Care Trophy Assembler Name Role Phone Bryce Terrietaijuice Partha Primary [...] series) 2042 Medical Devices Implanted Type Area Card Checker Device Identifier Shelf Expiration Date Model / Serial / Lot System Closure Suture Medicated Perclose Proglide 6fr - [id number] Implanted:Qty: 1 on 02/04/2019 at [facility] Implant [employer] [id number] 73-03 / / Coil Embolization Neurovascular [place] 0.035in 9pxv3ia Tornado - [id number] Implanted:Qty: 1 on 02/04/2019 at [facility] Implant [employer] [id number] 10/11/19 23 [id number] / / [id number] Coil Embolization Neurovascular [place] 0.035in 2zog6cv Tornado - [id number] Implanted:Qty: 1 on 02/04/2019 at [facility] Implant [employer] [id number] 08/03/19 24 [id number] / / [id number] Coil Embolization Neurovascular [place] 0.035in 2rct7ky Tornado - [id number] Implanted:Qty: 1 on 02/04/2019 at [facility] Implant [employer] [id number] 08/03/19 24 [id number] / / [id number] Coil Embolization Neurovascular [place] 0.035in 6psf0vy Tornado - [id number] Implanted:Qty: 1 on 02/04/2019 at [facility] Implant [employer] [id number] 08/03/19 24 [id number] / / [id number] Insurance [facility] Care Teams Trophy Assembler Relationship Specialty Start Date End Date Davon Wu [address] [place] [id number] PCP - General Internal Medicine 09/28/18
--- OUTSIDE RECORDS SUMMARY | 2025-04-30 19:00 | XMS_ITS | Clinical Summary ---
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 Care Geometry Teacher Name Role Phone ANDREINA MENCHACA, CLARENCE Unavailable Unavailable TATI NARVAEZ, ALBERTA Unavailable Unavailable Payers Payer Name Policy Type Policy Number Effective Date Expira tion Date MEDICAID [facility] [id number] Problems Condition Name Condition Details Condition Category [...] 06-25 00:00: 00 09-01 23:59 :00 No [id number] 5 mg BEDTIME 5 mg BEDTIME (route: oral) Med Classific ation: Central Nervous System Agents buspirone 7.5 mg tablet 06-25 00:00: 00 09-01 23:59 :00 No [id number] 7.5 mg 2 TIMES DAILY 7.5 mg 2 TIMES DAILY (route: oral) Med Classific ation: Central Nervous System Agents Eliquis 5 mg tablet 06-25 00:00: 00 09-01 23:59 :00 No [id number] 5 mg 2 TIMES DAILY 5 mg 2 TIMES DAILY (route: oral) Med Classific ation: Hematolog ical Agents famotidine 20 mg tablet 06-25 00:00: 00 09-01 23:59 :00 No [id number] 20 mg 2 TIMES DAILY 20 mg 2 TIMES DAILY (route: oral) Med Classific ation: Gastroint estinal Therapy Agents levothyroxi ne 112 mcg tablet 06-25 00:00: 00 09-01 23:59 :00 No [id number] 112 mcg EVERY AM 112 mcg EVERY AM (route: oral) Med Classific ation: Endocrine losartan 25 mg tablet 06-25 00:00: 00 09-01 23:59 :00 No [id number] 25 mg NOON 25 mg NOON (route: oral) Med Classific ation: Cardiovas cular Therapy Agents metformin 500 mg tablet 06-25 00:00: 00 09-01 23:59 :00 No [id number] 500 mg DIRECTED 500 mg DIRECTED (route: oral) Med Classific ation: Endocrine mirtazapine 7.5 mg tablet 06-25 00:00: 00 09-01 23:59 :00 No [id number] 7.5 mg BEDTIME 7.5 mg BEDTIME (route: oral) Med Classific ation: Central Nervous System Agents Narcan 4 mg/actuatio n nasal spray 06-25 00:00: 00 09-01 23:59 :00 No [id number] 2 spray DIRECTED 2 spray DIRECTED (route: nasal) Med Classific ation: Antidotes and other Reversal Agents ondansetron 4 mg disintegrat ing tablet 06-25 00:00: 00 09-01 23:59 :00 No [id number] 4 mg EVERY 8 HOURS 4 mg EVERY 8 HOURS (route: oral) Med Classific ation: Gastroint estinal Therapy Agents oxycodone 5 mg tablet 06-25 00:00: 00 09-01 23:59 :00 No [id number] 5 mg EVERY 12 HOURS 5 mg EVERY 12 HOURS (route: oral) Med Classific ation: Analgesic , Anti-infl ammatory or Antipyret ic propranolol 10 mg tablet 06-25 00:00: 00 09-01 23:59 :00 No [id number] 17 mg 2 TIMES DAILY 17 mg 2 TIMES DAILY (route: oral) Med Classific ation: Cardiovas cular Therapy Agents sertraline 100 mg tablet 06-25 00:00: 00 09-01 23:59 :00 No [id number] 100 mg NOON 100 mg NOON (route: oral) Med Classific ation: Central Nervous System Agents buspirone 10 mg tablet 09-05 00:00: 00 04-08 23:59 :00 No [id number] 1 tablet 2 TIMES DAILY 1 tablet 2 TIMES DAILY (route: oral) Med Classific ation: Central Nervous System Agents Colace 100 mg capsule 09-04 00:00: 00 04-08 23:59 :00 No [id number] 1 capsule BEDTIME 1 capsule BEDTIME (route: oral) Med Classific ation: Gastroint estinal Therapy Agents Eliquis 5 mg tablet 09-04 00:00: 00 04-08 23:59 :00 No [id number] 1 tablet 2 TIMES DAILY 1 tablet 2 TIMES DAILY (route: oral) Med Classific ation: Hematolog ical Agents levothyroxi ne 112 mcg tablet 09-04 00:00: 00 04-08 23:59 :00 No [id number] 1 tablet EVERY AM 1 tablet EVERY AM (route: oral) Med Classific ation: Endocrine losartan 25 mg tablet 09-04 00:00: 00 04-08 23:59 :00 No [id number] 1 tablet NOON 1 tablet NOON (route: oral) Med Classific ation: Cardiovas cular Therapy Agents metformin 500 mg tablet 09-04 00:00: 00 04-08 23:59 :00 No [id number] 1 tablet EVERY AM 1 tablet EVERY AM (route: oral) Med Classific ation: Endocrine metformin 500 mg tablet 09-05 00:00: 00 04-08 23:59 :00 No [id number] 2 tablet EVERY PM 2 tablet EVERY PM (route: oral) Med Classific ation: Endocrine Pepcid 20 mg tablet 09-04 00:00: 00 04-08 23:59 :00 No [id number] 1 tablet 2 TIMES DAILY 1 tablet 2 TIMES DAILY (route: oral) Med Classific ation: Gastroint estinal Therapy Agents propranolol 10 mg tablet 09-04 00:00: 00 04-08 23:59 :00 No [id number] 1 tablet 2 TIMES DAILY 1 tablet 2 TIMES DAILY (route: oral) Med Classific ation: Cardiovas cular Therapy Agents sertraline 100 mg tablet 09-04 00:00: 00 04-08 23:59 :00 No [id number] 1 tablet NOON 1 tablet NOON (route: oral) Med Classific ation: Central Nervous System Agents mirtazapine 45 mg tablet 09-04 00:00: 00 04-08 23:59 :00 No [id number] 1 tablet BEDTIME 1 tablet BEDTIME (route: oral) Med Classific ation: Central Nervous System Agents hydroxyzine HCl 10 mg tablet 09-04 00:00: 00 04-08 23:59 :00 No [id number] 1-2 tablet 2 TIMES DAILY 1-2 tablet 2 TIMES DAILY (route: oral) Med Classific ation: Central Nervous System Agents buspirone 10 mg tablet 2024-06 00:00: 00 Yes [id number] 10 mg 2 TIMES DAILY 10 mg 2 TIMES DAILY (route: oral) Med Classific ation: Central Nervous System Agents Colace 100 mg capsule 2024-06 00:00: 00 Yes [id number] 100 mg BEDTIME 100 mg BEDTIME (route: oral) Med Classific ation: Gastroint estinal Therapy Agents Eliquis 5 mg tablet 2024-06 00:00: 00 Yes [id number] 5 mg 2 TIMES DAILY 5 mg 2 TIMES DAILY (route: oral) Med Classific ation: Hematolog ical Agents hydroxyzine HCl 10 mg tablet 2024-06 00:00: 00 Yes [id number] 10 mg 2 TIMES DAILY 10 mg 2 TIMES DAILY (route: oral) Med Classific ation: Central Nervous System Agents levothyroxi ne 112 mcg tablet 2024-06 00:00: 00 Yes [id number] 112 mcg EVERY AM 112 mcg EVERY AM (route: oral) Med Classific ation: Endocrine losartan 25 mg tablet 2024-06 00:00: 00 Yes [id number] 25 mg NOON 25 mg NOO N (route: oral) Med Classific ation: Cardiovas cular Therapy Agents metformin 500 mg tablet 2024-06 00:00: 00 Yes [id number] 500 mg EVERY AM 500 mg EVERY AM (route: oral) Med Classific ation: Endocrine metformin 500 mg tablet 2024-06 00:00: 00 Yes [id number] 500 mg EVERY PM 500 mg EVERY PM (route: oral) Med Classific ation: Endocrine mirtazapine 45 mg tablet 2024-06 00:00: 00 Yes [id number] 45 mg BEDTIME 45 mg BEDTIME (route: oral) Med Classific ation: Central Nervous System Agents Pepcid 20 mg tablet 2024-06 00:00: 00 Yes [id number] 20 mg 2 TIMES DAILY 20 mg 2 TIMES DAILY (route: oral) Med Classific ation: Gastroint estinal Therapy Agents propranolol 10 mg tablet 2024-06 00:00: 00 Yes [id number] 10 mg 2 TIMES DAILY 10 mg 2 TIMES DAILY (route: oral) Med Classific ation: Cardiovas cular Therapy Agents sertraline 100 mg tablet 2024-06 00:00: 00 Yes [id number] 100 mg NOON 100 mg NOON (route: oral) Med Classific ation: Central Nervous System Agents Vital Signs Vital Name Observation Time Observation Value Commen ts Temperature 2025-04-13 15:21:00.000 97.2 [degF] Temperature 2025-04-09 13:30:00.000 97.2 [degF] Temperature 2025-04-02 14:09:00.000 97.3 [degF] Temperature 2025-03-21 16:30:00.000 96.8 [degF] Temperature 2025-03-14 17:28:00.000 96.7 [degF] Temperature 2025-03-09 15:51:00.000 97.2 [degF] Pulse 2025-04-13 15:21:00.000 70 /min Pulse 2025-04-09 13:30:00.000 76 /min Pulse 2025-04-02 14:09:00.000 88 /min Pulse 2025-03-21 16:30:00.000 80 /min Pulse 2025-03-14 17:31:00.000 70 /min Pulse 2025-03-09 15:51:00.000 68 /min O2 Saturation (%) 2025-04-13 15:21:00.000 98 % O2 Saturation (%) 2025-04-09 13:30:00.000 99 % O2 Saturation (%) 2025-04-02 14:09:00.000 97 % O2 Saturation (%) 2025-03-21 16:30:00.000 98 % O2 Saturation (%) 2025-03-14 17:31:00.000 96 % O2 Saturation (%) 2025-03-09 15:51:00.000 98 % Respirations 2025-04-13 15:21:00.000 16 /min Respirations 2025-04-09 13:30:00.000 17 /min Respirations 2025-04-02 14:09:00.000 16 /min Respirations 2025-03-21 16:30:00.000 16 /min Respirations 2025-03-14 17:28:00.000 16 /min Respirations 2025-03-09 15:51:00.000 16 /min Systolic Blood Pressure 2025-04-13 15:21:00.000 110 mm [Hg] Systolic Blood Pressure 2025-04-09 13:30:00.000 138 mm [Hg] Systolic Blood Pressure 2025-04-02 14:09:00.000 109 mm [Hg] Systolic Blood Pressure 2025-03-21 16:30:00.000 132 mm [Hg] Systolic Blood Pressure 2025-03-14 17:28:00.000 98 mm[ Hg] Systolic Blood Pressure 2025-03-09 15:51:00.000 114 mm [Hg] Diastolic Blood Pressure 2025-04-13 15:21:00.000 [...] AWARENESS FOR SAFETY AND WILL NOTIFY CLINICAL COAL SAMPLE TESTER AND PHYSICIAN/PROVIDER WITH ANY CHANGE IN CONDITION. [code = SKILLED NURSE WILL MAINTAIN SITUATIONAL AWARENESS FOR SAFETY AND WILL NOTIFY CLINICAL COAL SAMPLE TESTER AND PHYSICIAN/PROVIDER WITH ANY CHANGE IN CONDITION.] Goal Patient Goal - TO SLEEP BETT ER Goal 2024-10-29 Patient Goal - TO SLEEP BETT ER Goal 2025-02-28 Patient Goal - TO SLEEP BETT ER Goal 2024-12-31 Patient Goal - TO SLEEP [...] Date/Time Encounter Type Admission Type Attending [facility] Care Department Encounter ID Discharge Date Discharge Status Discharge Condition Discharge Reason Percent Goals Met 2025-03-03 00:00:00 2025-05-01 00:00:00 Outpatient RECERTIFIC ATALBERTA [facility] [id number] 0.00
--- OUTSIDE RECORDS SUMMARY | 2025-04-30 19:00 | XMS_ITS | Clinical Summary ---
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 Care Manager Outreach Name Role Phone ANDREINA MENCHACA, CLARENCE Unavailable Unavailable TATI NARVAEZ, ALBERTA Unavailable Unavailable Payers Payer Name Policy Type Policy Number Effective Date Expira tion Date MEDICAID [facility] [id number] Problems Condition Name Condition Details Condition Category [...] 06-25 00:00: 00 09-01 23:59 :00 No [id number] 5 mg BEDTIME 5 mg BEDTIME (route: oral) Med Classific ation: Central Nervous System Agents buspirone 7.5 mg tablet 06-25 00:00: 00 09-01 23:59 :00 No [id number] 7.5 mg 2 TIMES DAILY 7.5 mg 2 TIMES DAILY (route: oral) Med Classific ation: Central Nervous System Agents Eliquis 5 mg tablet 06-25 00:00: 00 09-01 23:59 :00 No [id number] 5 mg 2 TIMES DAILY 5 mg 2 TIMES DAILY (route: oral) Med Classific ation: Hematolog ical Agents famotidine 20 mg tablet 06-25 00:00: 00 09-01 23:59 :00 No [id number] 20 mg 2 TIMES DAILY 20 mg 2 TIMES DAILY (route: oral) Med Classific ation: Gastroint estinal Therapy Agents levothyroxi ne 112 mcg tablet 06-25 00:00: 00 09-01 23:59 :00 No [id number] 112 mcg EVERY AM 112 mcg EVERY AM (route: oral) Med Classific ation: Endocrine losartan 25 mg tablet 06-25 00:00: 00 09-01 23:59 :00 No [id number] 25 mg NOON 25 mg NOON (route: oral) Med Classific ation: Cardiovas cular Therapy Agents metformin 500 mg tablet 06-25 00:00: 00 09-01 23:59 :00 No [id number] 500 mg DIRECTED 500 mg DIRECTED (route: oral) Med Classific ation: Endocrine mirtazapine 7.5 mg tablet 06-25 00:00: 00 09-01 23:59 :00 No [id number] 7.5 mg BEDTIME 7.5 mg BEDTIME (route: oral) Med Classific ation: Central Nervous System Agents Narcan 4 mg/actuatio n nasal spray 06-25 00:00: 00 09-01 23:59 :00 No [id number] 2 spray DIRECTED 2 spray DIRECTED (route: nasal) Med Classific ation: Antidotes and other Reversal Agents ondansetron 4 mg disintegrat ing tablet 06-25 00:00: 00 09-01 23:59 :00 No [id number] 4 mg EVERY 8 HOURS 4 mg EVERY 8 HOURS (route: oral) Med Classific ation: Gastroint estinal Therapy Agents oxycodone 5 mg tablet 06-25 00:00: 00 09-01 23:59 :00 No [id number] 5 mg EVERY 12 HOURS 5 mg EVERY 12 HOURS (route: oral) Med Classific ation: Analgesic , Anti-infl ammatory or Antipyret ic propranolol 10 mg tablet 06-25 00:00: 00 09-01 23:59 :00 No [id number] 17 mg 2 TIMES DAILY 17 mg 2 TIMES DAILY (route: oral) Med Classific ation: Cardiovas cular Therapy Agents sertraline 100 mg tablet 06-25 00:00: 00 09-01 23:59 :00 No [id number] 100 mg NOON 100 mg NOON (route: oral) Med Classific ation: Central Nervous System Agents buspirone 10 mg tablet 09-05 00:00: 00 04-08 23:59 :00 No [id number] 1 tablet 2 TIMES DAILY 1 tablet 2 TIMES DAILY (route: oral) Med Classific ation: Central Nervous System Agents Colace 100 mg capsule 09-04 00:00: 00 04-08 23:59 :00 No [id number] 1 capsule BEDTIME 1 capsule BEDTIME (route: oral) Med Classific ation: Gastroint estinal Therapy Agents Eliquis 5 mg tablet 09-04 00:00: 00 04-08 23:59 :00 No [id number] 1 tablet 2 TIMES DAILY 1 tablet 2 TIMES DAILY (route: oral) Med Classific ation: Hematolog ical Agents levothyroxi ne 112 mcg tablet 09-04 00:00: 00 04-08 23:59 :00 No [id number] 1 tablet EVERY AM 1 tablet EVERY AM (route: oral) Med Classific ation: Endocrine losartan 25 mg tablet 09-04 00:00: 00 04-08 23:59 :00 No [id number] 1 tablet NOON 1 tablet NOON (route: oral) Med Classific ation: Cardiovas cular Therapy Agents metformin 500 mg tablet 09-04 00:00: 00 04-08 23:59 :00 No [id number] 1 tablet EVERY AM 1 tablet EVERY AM (route: oral) Med Classific ation: Endocrine metformin 500 mg tablet 09-05 00:00: 00 04-08 23:59 :00 No [id number] 2 tablet EVERY PM 2 tablet EVERY PM (route: oral) Med Classific ation: Endocrine Pepcid 20 mg tablet 09-04 00:00: 00 04-08 23:59 :00 No [id number] 1 tablet 2 TIMES DAILY 1 tablet 2 TIMES DAILY (route: oral) Med Classific ation: Gastroint estinal Therapy Agents propranolol 10 mg tablet 09-04 00:00: 00 04-08 23:59 :00 No [id number] 1 tablet 2 TIMES DAILY 1 tablet 2 TIMES DAILY (route: oral) Med Classific ation: Cardiovas cular Therapy Agents sertraline 100 mg tablet 09-04 00:00: 00 04-08 23:59 :00 No [id number] 1 tablet NOON 1 tablet NOON (route: oral) Med Classific ation: Central Nervous System Agents mirtazapine 45 mg tablet 09-04 00:00: 00 04-08 23:59 :00 No [id number] 1 tablet BEDTIME 1 tablet BEDTIME (route: oral) Med Classific ation: Central Nervous System Agents hydroxyzine HCl 10 mg tablet 09-04 00:00: 00 04-08 23:59 :00 No [id number] 1-2 tablet 2 TIMES DAILY 1-2 tablet 2 TIMES DAILY (route: oral) Med Classific ation: Central Nervous System Agents buspirone 10 mg tablet 2024-06 00:00: 00 Yes [id number] 10 mg 2 TIMES DAILY 10 mg 2 TIMES DAILY (route: oral) Med Classific ation: Central Nervous System Agents Colace 100 mg capsule 2024-06 00:00: 00 Yes [id number] 100 mg BEDTIME 100 mg BEDTIME (route: oral) Med Classific ation: Gastroint estinal Therapy Agents Eliquis 5 mg tablet 2024-06 00:00: 00 Yes [id number] 5 mg 2 TIMES DAILY 5 mg 2 TIMES DAILY (route: oral) Med Classific ation: Hematolog ical Agents hydroxyzine HCl 10 mg tablet 2024-06 00:00: 00 Yes [id number] 10 mg 2 TIMES DAILY 10 mg 2 TIMES DAILY (route: oral) Med Classific ation: Central Nervous System Agents levothyroxi ne 112 mcg tablet 2024-06 00:00: 00 Yes [id number] 112 mcg EVERY AM 112 mcg EVERY AM (route: oral) Med Classific ation: Endocrine losartan 25 mg tablet 2024-06 00:00: 00 Yes [id number] 25 mg NOON 25 mg NOO N (route: oral) Med Classific ation: Cardiovas cular Therapy Agents metformin 500 mg tablet 2024-06 00:00: 00 Yes [id number] 500 mg EVERY AM 500 mg EVERY AM (route: oral) Med Classific ation: Endocrine metformin 500 mg tablet 2024-06 00:00: 00 Yes [id number] 500 mg EVERY PM 500 mg EVERY PM (route: oral) Med Classific ation: Endocrine mirtazapine 45 mg tablet 2024-06 00:00: 00 Yes [id number] 45 mg BEDTIME 45 mg BEDTIME (route: oral) Med Classific ation: Central Nervous System Agents Pepcid 20 mg tablet 2024-06 00:00: 00 Yes [id number] 20 mg 2 TIMES DAILY 20 mg 2 TIMES DAILY (route: oral) Med Classific ation: Gastroint estinal Therapy Agents propranolol 10 mg tablet 2024-06 00:00: 00 Yes [id number] 10 mg 2 TIMES DAILY 10 mg 2 TIMES DAILY (route: oral) Med Classific ation: Cardiovas cular Therapy Agents sertraline 100 mg tablet 2024-06 00:00: 00 Yes [id number] 100 mg NOON 100 mg NOON (route: [...] AWARENESS FOR SAFETY AND WILL NOTIFY CLINICAL RISK MANAGEMENT MANAGER AND PHYSICIAN/PROVIDER WITH ANY CHANGE IN CONDITION. [code = SKILLED NURSE WILL MAINTAIN SITUATIONAL AWARENESS FOR SAFETY AND WILL NOTIFY CLINICAL RISK MANAGEMENT MANAGER AND PHYSICIAN/PROVIDER WITH ANY CHANGE IN CONDITION.] [...] End Date/Time Encounter Type Admission Type Attending [facility] Care Department Encounter ID Discharge Date Discharge Status Discharge Condition Discharge Reason Percent Goals Met 2025-03-03 00:00:00 2025-05-01 00:00:00 Outpatient RECERTIFIC ATALBERTA YU [facility] [id number] 0.00
== END 2025-04-15 10:50 | disposition home or self-care (01) ==
LOC: HO.HVS 08:30
PROVIDERS: PCP Student in an Organized Health Care Education/Training Program; Visit Provider Surgery Vascular Surgery
DX: I83.11 Varicose veins of right lower extremity with inflammation (principal)
CPT/HCPCS: 37765

== ENCOUNTER → 2025-04-15 08:30 | Outpatient (BNVA) | payer MEDICAID, SELFPAY | PROVIDERS: PCP Student in an Organized Health Care Education/Training Program; Visit Provider Surgery Vascular Surgery | DX: I83.11 Varicose veins of right lower extremity with inflammation (principal) | CPT/HCPCS: 37765 ==

== ENCOUNTER 2025-04-28 13:36 | Outpatient (AMB) | payer MEDICAID, SELFPAY ==
--- OUTSIDE RECORDS SUMMARY | 2025-04-27 15:00 | XMS_ITS | Encounter Summary ---
Author Organization [employer] Address [address] [facility] 7t [place] [address] Care Team Providers Care Quill Winder Name Role Phone Kristy Wilder MD Primary Care Pro vider Bradly Gonzalez MD Unavailable Rk Smith Unavailable Buck Hess DPM Unavailable [phone] Rosanne Mosley Unavailable Reason for Visit * Reason Comments Dental Exam Evaluation for lymph -EO ROOM 12 Encounter Details Date Type Department Care Team (Late st Contact Info) Description 04/27/2025 3:00 PM EST Office Visit [facility] ADULT DENTAL [address] [place] [address] Zi Lozano DDS [address] [place] [address] Social History Tobacco Use Types Packs/Day Years [...] as of this encounter Progress Notes * Zi Lozano DDS - 04/27/2025 3:00 PM EST Dental procedures in this visit D9310 - CONSULTATION - DIAGNOSTIC SERVICE PROVIDED BY DENTIST OR PHYSICIAN OTHER THAN REQUESTING DENTIST OR PHYSICIAN (Completed) Service provider: Zi Lozano DDS Billing provider: Byrson Hobson DMD D9450 - CASE PRESENTATION, DETAILED AND EXTENSIVE TREATMENT PLANNING (Completed) Service provider: Zi Lozano DDS Billing provider: Bryson Hobson DMD Patient ID: Krys Travis is a 60 y.o. female. 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 Confirmed via patient's chart, intraorally and by radiographs. Portrait Consultant: Yes. Language: Zimbabwean. Portrait Consultant's Name: Zi Lozano DDS Doctor's Note: - Patient presents for consultation with Oral Surgeon. - She complains of pain upon extraoral palpation of left submandibular gland. - Xerostomia as a potential side effect of polypharmacy - Patient was asked to increase hydration + sour foods Rx: - Augmentin 875-125 mg BID / 10 days - She will be seen in two weeks with Dr. Hobson [place]: Follow Up with Dr. Hobson Resident: Zi Lozano DDS Casing Wringer Operator: Nick Huynh Authorizing Provider: Dr. Hobson * Bryson Hobson DMD - 04/27/2025 3:00 PM EST I saw and evaluated the patient, participating in the weir portions of the service. I reviewed the resident???s note. I agree with the resident???s findings and plan. Bryson Hobson DMD documented in this encounter Plan of Treatment Upcoming Encounters Date Type Department Care Team (Late st Contact Info) Description 05/10/2025 1:30 PM EST Clinical Support [facility] MEDICINE [address] [place] [address] 05/11/2025 2:30 PM EST Office Visit [facility] ADULT D[facility] [address] [place] [address] Bryson Hobson DMD [address] [place] [address] 05/11/2025 3:00 PM EST Office Visit [facility] ADULT D[facility] [address] [place] [address] Talha Herrera 05/16/2025 2:00 PM EST Telemedicine [facility] [address] [place] [address] Colette Diop, BRICE [address] [place] [address] 05/20/2025 3:00 PM EST Office Visit [facility]ULT [facility] [address] [place] [address] Talha Herrera 06/15/2025 1:00 PM EST Office Visit [facility]ULT [facility] [address] [place] [address] Zi Lozano DDS [address] [place] [address] Scheduled Orders Name Type Priority Associated Diagnoses Orde r Schedule NO CHARGE EXAM AND CONSULTATION Dental Routine [address] arting 04/27/2025 documented as of this encounter Goals Goal Patient Goal Type Associated Problems Recent Progress Patient-Stated? Author Help patients manage their type 2 diabetes Care Plan Help patients manage their type 2 diabetes No Zoe Beach RN Weekly blood pressure task Care Plan Weekly blood pressure task No Zoe [place] RN Help patients manage their type 2 diabetes Care Plan Help patients manage their type 2 diabetes No Zoe Beach, BRICE Patient has chronic kidney disease Care Plan Patient has chronic kidney disease No Zoe [place] RN Weekly blood pressure task Care Plan Weekly blood pressure task No Zoe [place] RN Patient has chronic kidney disease Care Plan Patient has chronic kidney disease No Zoe [place] RN Weekly blood pressure task Care Plan Weekly blood pressure task No Rin, Amie Weekly blood pressure task Care Plan Weekly blood pressure task No Rin, Amie Patient has chronic kidney disease Care Plan Patient has chronic kidney disease No Rin, Amie Patient has chronic kidney disease Care Plan Patient has chronic kidney disease No Rin, Amie Weekly blood pressure task Care Plan Weekly blood pressure task No Lozano, Zi, DDS Weekly blood pressure task Care Plan Weekly blood pressure task No Lozano, Zi, DDS Patient has chronic kidney disease Care Plan Patient has chronic kidney disease No Lozano, Zi, DDS Patient has chronic kidney disease Care Plan Patient has chronic kidney disease No Lozano, Zi, DDS documented as of this encounter Procedures Procedure Name Priority Date/Time Associated Diagnosis Comments CONSULTATION - DIAGNOSTIC SERVICE PROVIDED BY DENTIST OR PHYSICIAN OTHER THAN REQUESTING DENTIST OR PHYSICIAN Routine 04/27/2025 3:00 PM EST CASE PRESENTATION, DETAILED AND EXTENSIVE TREATMENT PLANNING Routine 04/27/2025 3:00 PM EST documented in this encounter Visit Diagnoses Not on filedocumented in this encounter Additional Health Concerns Active Problems Noted Date Diagnosed Date Help patients manage their type 2 diabetes 04/21 Weekly blood pressure task 04/21/2025 Help patients manage their type 2 diabetes 04/21 Patient has chronic kidney disease 04/21/2025 Weekly blood pressure task 04/21/2025 Patient has chronic kidney disease 04/21/2025 Weekly blood pressure task 04/27/2025 Weekly blood pressure task 04/27/2025 Patient has chronic kidney disease 04/27/2025 Patient has chronic kidney disease 04/27/2025 Weekly blood pressure task 04/28/2025 Weekly blood pressure task 04/28/2025 Patient has chronic kidney disease 04/28/2025 Patient has chronic kidney disease 04/28/2025 Assessment Noted Time PHQ-9 Depression Total Score: 14 025 11:30 AM EDT documented as of this encounter Care Teams Quill Winder Relationship Specialty Start Date End Date Kristy Wilder MD [address] [place] [address] PCP - General Internal Medicine 12/26/22 Bradly Gonzalez MD [address] [place] [address] Drive [address] [place] [address] Vascular Surgery 07/17/22 Rk Smith [address] [place] [address] Otolaryngology 01/14/25 Buck Hess DPM [address] [facility] [address] [place] [address] Podiatry 01/14/25 Rosanne Mosley 03/28/25 Evita Hanna Supervisor Bridges And BuildingsBrick Kiln Worker 11/04/[address] [address] Physical Therapy 07/17/22 documented as of this encounter
--- NOTE | 2025-04-28 13:44 | MHC.OFFVIS ---
Intake Visit Reasons: 2 week follow up R leg Micro 04/15/25 Intake Note: Patient presents for follow up right leg micro. She states she has some heaviness in her legs. Accompanied by: Self / Same As Patient Allergies phenylephrine (From CONTAC-D COLD (PE)) Allergy (Unknown, Verified 04/28/25 13:47) EDEMA morphine Allergy (Verified 04/28/25 13:47) Rash Contac-D Allergy (Unknown, Uncoded 04/15/25 08:55) Unknown HPI HPI 2 week follow up R leg Micro 04/15/25: Details: The patient is a 60 year old individual presenting for a follow-up visit after a right leg microphlebectomy. The procedure was performed on April 15, 2025. Postoperatively, the patient reports a sensation of heaviness in the leg in a vein in the posterior aspect behind the knee. Other than that reports that the swelling and discomfort generally in her leg has significantly improved.. PFSH Medical History Chronic allergic rhinitis Pulmonary nodules Right renal mass Anxiety Depression Clear cell carcinoma of right kidney Surgical History Hx of colonoscopy History of esophagogastroduodenoscopy (EGD) S/P skin biopsy Status post hysterectomy Family History Maternal Uncle Stomach cancer Maternal Aunt Stomach cancer Paternal Aunt Colon cancer Sister Liver cancer Sister Skin cancer Social History Household Members: None Housing: Apartment Are you a primary director of patient care to a significant other at home: No Do you presently have visiting nurse or other home services: Yes Alcohol intake: former Patient Tobacco Use Status: Never used Tobacco service: No Current occupational status: unemployed Sexual orientation: Straight/Heterosexual Review of Systems Const All systems reviewed & are unremarkable except as noted in HPI and below Reports no additional complaints ENT Reports Normal hearing present Card Denies chest pain, Denies chest pain at rest, Denies chest pain with activity and Denies pedal edema Resp Denies cough GI Denies abdominal pain Musc Denies abnormal gait, Denies muscle cramps and Denies radiating pain into limb Skin/Breast Denies skin ulcer and Denies wounds Neuro Reports Normal hearing present and Denies abnormal gait Psych Reports no additional complaints Physical Exam Const General: cooperative, healthy appearing and comfortable Orientation/consciousness: oriented to person, oriented to place and oriented to time HEENT Head: Yes normal to inspection Neck Neck: Yes normal visual inspection Carotids: no bruits Chest Chest palpation & inspection: normal inspection of the chest Resp Effort & Inspection: normal respiratory effort and able to speak in complete sentences Auscultation: clear to auscultation bilaterally, no crackles, no rales, no rhonchi and no wheezes Cardio Rate: regular rate Rhythm: regular rhythm Heart sounds: S1 normal heart sound present and S2 normal heart sound present Bruits: no carotid bruits Peripheral pulses: Peripheral pulses 2+ throughout GI Inspection: Yes normal to inspection Skin Wounds: no wounds Hair: normal Neuro General: oriented to person, oriented to place and oriented to time Cranial nerves: Yes CN's II-XII intact bilaterally and Yes Normal hearing present Cognition (Neuro): normal cognition Motor exam (neuro): 5/5 motor strength present throughout Extrem Other: venous exam: No significant superficial varicosities or spider telangiectasias, minimal edema General: No clubbing, No cyanosis and No edema Psych Appearance: grossly normal Mental Status: mental status grossly normal Speech and movement: Normal speech and movement present Assessment & Plan Assessment & Plan (1) Varicose veins of right lower extremity with inflammation: Comment: 01/30/2024 - right great saphenous vein Cyanoacralate ablation 04/15/2025 - right leg microphlebectomy Code(s): I83.11 - Varicose veins of right lower extremity with inflammation Category: Medical Plan: The patient has done extremely well with all venous treatments. Patient's may often experience postprocedure phlebitic episodes and I have discussed with the patient use of warm compresses and NSAIDS if tolerated for pain discomfort. In addition, I have discussed continued conservative measures including use of compression, leg elevation, and exercise. The patient was also given an information sheet regarding appropriate use of compression stockings and future purchases. Thank you for allowing us to care for your patient with venous disease. Coding Level of Care Code Est Pt Level 3 (90719) Diagnoses Varicose veins of right lower extremity with inflammation I83.11
--- OUTSIDE RECORDS SUMMARY | 2025-04-28 19:02 | XMS_ITS | Encounter Summary ---
Author Organization [employer] Address [address] [facility] 7 [place] [address] Care Team Providers Care Field Service Supervisor Name Role Phone Kristy Wilder MD Primary Care Pro vider Bradly Gonzalez MD Unavailable Rk Smith Unavailable Buck Hess DPM Unavailable [phone] Rosanne Mosley Unavailable Reason for Visit * Reason Onset Date Comments Nurse Triage 08/08/2023 Encounter Details Date Type Department Care Team (Late st Contact Info) Description 08/08/2023 Telephone [facility] MEDICINE [address] [place], [place] [phone] Kristy Wilder MD [address] [place], [place] [phone] Nurse Triage Social History Tobacco Use Types [...] EST Triage call returned to patient with [employer] Appl[employer] Mechanic [id number]. Patient with soft voice and weakness. Received [...] to access 911 EMS for transport to [facility] ( followed by Oncologist) there. PCP [...] accepted this outcome Please contact pt at [phone] (Faroese) documented in this encounter Plan of Treatment Upcoming Encounters Date Type Department Care Team ([facility] st Contact Info) Description 05/10/2025 1:30 PM EST Clinical Support [facility] MEDICINE [address] [place] [address] 05/11/2025 2:30 PM EST Office Visit [facility] [address] [place] [address] Bryson Hobson DMD [address] [place] [address] 05/11/2025 3:00 PM EST Office Visit [facility] [address] [place] [address] Talha Herrera 05/16/2025 2:00 PM EST Telemedicine [facility] PED[facility] [address] [place] [address] Colette Diop, BRICE [address] [place] [address] 05/20/2025 3:00 PM EST Office Visit [facility] [address] [place] [address] Talha Herrera 06/15/2025 1:00 PM EST Office Visit [facility] [address] [place] [address] Zi Lozano DDS [address] [place] [address] documented as of this encounter Visit Diagnoses Not on filedocumented in this encounter Additional Health Concerns Assessment Noted Time PHQ-9 Depression Total Score: 16 023 11:20 AM EDT documented as of this encounter Care Teams Field Service Supervisor Relationship Specialty Start Date End Date Kristy Wilder MD [address] [place] [address] PCP - General Internal Medicine 12/26/22 Braldy Gonzalez MD [address] [facility] [address] [place] [address] Vascular Surgery 07/17/22 Rk Smith 100 [facility] [address] [place] [address] Otolaryngology 01/14/25 Buck Hess DPM [address] [facility] [address] [place] [address] Podiatry 01/14/25 Rosanne Mosley 03/28/25 Evita Hanna Wheel Truing Machine TenderLatin American Studies Director 11/04/24 [facility] [address] [place] [address] Physical Therapy 07/17/22 documented as of this encounter
--- OUTSIDE RECORDS SUMMARY | 2025-04-28 19:02 | XMS_ITS | Encounter Summary ---
Author Organization [employer] Address [address] [facility] 7t [place] [address] Care Team Providers Care Curriculum Specialist Name Role Phone Kristy Wilder MD Primary Care Pro vider Bradly Gonzalez MD Unavailable Rk Smith Unavailable Buck Hess DPM Unavailable [phone] Rosanne Mosley Unavailable Reason for Visit * Reason Comments Med Refill Encounter Details Date Type Department Care Team (Late st Contact Info) Description 09/10/2023 Refill [facility] MED[facility] [address] [place], [place] [phone] Kristy Wilder MD [address] [place], [place] [phone] Type 2 diabetes mellitus with diabetic polyneuropathy, without long-term current use of insulin ([facility]) Social History Tobacco Use Types Packs/Day [...] Description 05/10/2025 1:30 PM EST Clinical Support [facility] [address] [place] [address] 05/11/2025 2:30 PM EST Office Visit [facility] ADULT [facility] [address] [place] [address] Bryson Hobson DMD [address] [place] [address] 05/11/2025 3:00 PM EST Office Visit [facility] [address] [place] [address] Talha Herrera 05/16/2025 2:00 PM EST Telemedicine [facility] [address] [place] [address] Colette Diop, BRICE [address] [place] [address] 05/20/2025 3:00 PM EST Office Visit [facility] [address] [place] [address] Talha Herrera 06/15/2025 1:00 PM EST Office Visit [facility] [address] [place] [address] Zi Lozano DDS [address] [place] [address] documented as of this encounter Visit Diagnoses Diagnosis Type 2 diabetes mellitus with diabetic polyneuropathy, without long-term current use of insulin (HCC) documented in this encounter Additional Health Concerns Assessment Noted Time PHQ-9 Depression Total Score: 16 023 11:20 AM EDT documented as of this encounter Care Teams Curriculum Specialist Relationship Specialty Start Date End Date Kristy Wilder MD [address] [place] [address] PCP - General Internal Medicine 12/26/22 Bradly Gonzalez MD [address] [place] [address] Drive [address] [place] [address] Vascular Surgery 07/17/22 Rk Smith 100 [facility] [address] [place] [address] Otolaryngology 01/14/25 Buck Hess DPM 175 [facility] [address] [place] [address] Podiatry 01/14/25 Rosanne Mosley 03/28/25 Evita Hanna Campaign SpecialistStatistical Typist 11/04/24 [facility] [address] [place] [address] Physical Therapy 07/17/22 documented as of this encounter
--- OUTSIDE RECORDS SUMMARY | 2025-04-28 19:02 | XMS_ITS | Encounter Summary ---
Author Organization [employer] Address [address] [facility] 7t [place] [address] Care Team Providers Care Sales Center Manager Name Role Phone Kristy Wilder MD Primary Care Pro vider Bradly Gonzalez MD Unavailable Rk Smith Unavailable Buck Hess DPM Unavailable [phone] Rosanne Mosley Unavailable Reason for Visit * Reason Comments Med Refill Encounter Details Date Type Department Care Team (Late st Contact Info) Description 05/15/2023 Refill [facility] MEDICINE [address] [place], [place] [phone] Evelina Freeman MD [address] [place], [place] [phone] Social History Tobacco Use Types Packs/Day Years [...] Description 05/10/2025 1:30 PM EST Clinical Support [facility] [address] [place] [address] 05/11/2025 2:30 PM EST Office Visit [facility] ADULT DENTAL [address] [place] [address] Bryson Hobson DMD [address] [place] [address] 05/11/2025 3:00 PM EST Office Visit [facility] ADULT DENTAL [address] [place] [address] Talha Herrera 05/16/2025 2:00 PM EST Telemedicine [facility] [address] [place] [address] Colette Diop, RN [address] [place] [address] 05/20/2025 3:00 PM EST Office Visit [facility] ADULT DENTAL [address] [place] [address] Talha Herrera 06/15/2025 1:00 PM EST Office Visit [facility] ADULT DENTAL [address] [place] [address] Zi Lozano DDS [address] [place] [address] documented as of this encounter Visit Diagnoses Not on filedocumented in this encounter Additional Health Concerns Assessment Noted Time PHQ-9 Depression Total Score: 16 023 11:20 AM EDT documented as of this encounter Care Teams Sales Center Manager Relationship Specialty Start Date End Date Kristy Wilder MD [address] [place] [address] PCP - General Internal Medicine 12/26/22 Bradly Gonzalez MD [address] [place] [address] Vascular Surgery 07/17/22 Rk Smith 100 [facility] [address] [place] [address] Otolaryngology 01/14/25 Buck Hess DPM 175 [facility] [address] [place] [address] Podiatry 01/14/25 Rosanne Mosley 03/28/25 Evita Hanna Extrusion Die RepairerCupola Man 11/04/[address] [address] Physical Therapy 07/17/22 documented as of this encounter
--- OUTSIDE RECORDS SUMMARY | 2025-04-28 19:02 | XMS_ITS | Encounter Summary ---
Author Organization [employer] Address [address] [facility] 7 [place] [address] Care Team Providers Care Financial Legal Assistant Name Role Phone Kristy Wilder MD Primary Care Pro vider Bradly Gonzalez MD Unavailable Rk Smith Unavailable Buck Hess DPM Unavailable [phone] Rosanne Mosley Unavailable Reason for Visit * Reason Onset Date Comments PT-1 08/03/2024 Encounter Details Date Type Department Care Team ([facility] st Contact Info) Description 08/03/2024 Telephone [facility] MEDICINE [address] [place], [place] [phone] Kristy Wilder MD [address] [place], [place] [phone] PT-1 Social History Tobacco Use Types Packs/Day [...] Y/N: Yes Provider name or facility name: [facility] Facility Address: [address] [place] [address] Escort needed: Y/N: No Do you have a wheelchair: Y/N: No If yes- Manual or electric: N/A Visits: Twice monthly documented in this encounter Plan of Treatment Upcoming Encounters Date Type Department Care Team (Late st Contact Info) Description 05/10/2025 1:30 PM EST Clinical Support [facility] MEDICINE [address] [place] [address] 05/11/2025 2:30 PM EST Office Visit [facility] ADULT DENTAL [address] [place] [address] Bryson Hobson DMD [address] [place] [address] 05/11/2025 3:00 PM EST Office Visit [facility] ADULT DENTAL [address] [place] [address] Talha Herrera 05/16/2025 2:00 PM EST Telemedicine [facility] PED[facility] [address] [place] [address] Colette Diop, RN [address] [place] [address] 05/20/2025 3:00 PM EST Office Visit [facility] ADULT DENTAL [address] [place] [address] Talha Herrera 06/15/2025 1:00 PM EST Office Visit [facility] ADULT DENTAL [address] [place] [address] Zi Lozano DDS [address] [place] [address] documented as of this encounter Visit Diagnoses Not on filedocumented in this encounter Additional Health Concerns Assessment Noted Time PHQ-9 Depression Total Score: 4 10/31/19 24 1:38 PM EDT documented as of this encounter Care Teams Financial Legal Assistant Relationship Specialty Start Date End Date Kristy Wilder MD [address] [place] [address] PCP - General Internal Medicine 12/26/22 Bradly Gonzalez MD 2 [facility] [address] [place] [address] Vascular Surgery 07/17/22 Rk Smith 100 [facility] [address] [place] [address] Otolaryngology 01/14/25 Buck Hess DPM [address] [place] [address] [address] [place] [address] Podiatry 01/14/25 Rosanne Mosley 03/28/25 Evita Hanna Shaving Machine OperatorChief Wellness Officer 11/04/24 [facility] [address] [place] [address] Physical Therapy 07/17/22 documented as of this encounter
--- OUTSIDE RECORDS SUMMARY | 2025-04-28 19:02 | XMS_ITS | Encounter Summary ---
Author Organization [employer] Address 75 [facility] 7t [place] [address] Care Team Providers Care Golf Starter And Ranger Name Role Phone Kristy Wilder MD Primary Care Pro vider Bradly Gonzalez MD Unavailable Rk Smith Unavailable Buck Hess DPM Unavailable [phone] Rosanne Mosley Unavailable Reason for Visit * [...] (Late st Contact Info) Description 02/11/2023 Refill [facility] MEDICINE [address] [place] [phone] Kristy Wilder MD [address] [place], [place] [phone] Primary insomnia; Chronic low back pain, unspecified [...] Description 05/10/2025 1:30 PM EST Clinical Support [facility] MEDICINE 230 [place] [address] 05/11/2025 2:30 PM EST Office Visit [facility] [address] [place] [address] Bryson Hobson DMD 505 [place] [address] 05/11/2025 3:00 PM EST Office Visit [facility] [address] [place] [address] Talha Herrera 05/16/2025 2:00 PM EST Telemedicine [facility] [address] [place] [address] Colette Diop, BRICE 505 [place] [address] 05/20/2025 3:00 PM EST Office Visit [facility] [address] [place] [address] Talha Herrera 06/15/2025 1:00 PM EST Office Visit [facility] 505 [place] [address] Zi Lozano DDS 230 [place] [address] documented as of this encounter Visit Diagnoses Diagnosis Primary insomnia Persistent disorder of initiating or maintaining sleep Chronic low back pain, unspecified back pain laterality, unspecified whether sciatica present documented in this encounter Additional Health Concerns Assessment Noted Time PHQ-9 Depression Total Score: 11 022 1:16 PM EST documented as of this encounter Care Teams Golf Starter And Ranger Relationship Specialty Start Date End Date Kristy Wilder MD [address] [place] [address] PCP - General Internal Medicine 12/26/22 Bradly Gonzalez MD [address] [place] [address] Vascular Surgery 07/17/22 Rk Smith [address] [facility] [address] [place] [address] Otolaryngology 01/14/25 Buck Hess DPM 175 [facility] [address] [place] [address] Podiatry 01/14/25 Rosanne Mosley 03/28/25 Evita Hanna Electronics Design EngineerProbation Manager 11/04/[address] [address] Physical Therapy 07/17/22 documented as of this encounter
--- OUTSIDE RECORDS SUMMARY | 2025-04-28 19:02 | XMS_ITS ---
Author Organization [employer] Address [address] [facility] 7t [place] [address] Care Team Providers Care Tabulating Supervisor Name Role Phone Kristy Wilder MD Primary Care Pro vider Bradly Gonzalez MD Unavailable Rk Smith Unavailable Buck Hess DPM Unavailable [phone] Rosanne Mosley Unavailable CHW Complex Status:Outreach In Progress (Enrolling) Start date:03/28/2025 Enrollment reason:ADT Feed Overview CP Assigned Patient ED- Pt went to [facility] ED on 03/25/25. Case Team Name Relationship Phone Rosanne Mosley(Responsible Staff) [phone] Continued Care and Services Coordination
--- OUTSIDE RECORDS SUMMARY | 2025-04-28 19:02 | XMS_ITS | Encounter Summary ---
Author Organization [employer] Address 75 [facility] 7t [place] [address] Care Team Providers Care Nurse Technician Name Role Phone Kristy Wilder MD Primary Care Pro vider Bradly Gonzalez MD Unavailable Rk Smith Unavailable Buck Hess DPM Unavailable [phone] Rosanne Mosley Unavailable Reason for Visit * Reason Onset Date Comments Nurse Triage 04/19/2025 Encounter Details Date Type Department Care Team (Late st Contact Info) Description 04/19/2025 Telephone [facility] MEDICINE 230 [place], [place] [phone] Kristy Wilder MD [address] [place], [place] [phone] Nurse Triage Social History Tobacco Use Types [...] Telephone Encounter - Marisol Juarez RN - 04/25/2025 11:26 AM EST Return call placed to the pt with [facility] plug cutting machine operator #[id number] to follow up on the pt reported pain and swelling in her right leg post varicose vein procedure at [facility] on 04/15. The pt confirmed thatthe area has around 14 stiches and one or two of them has marked redness. Minimal to no swelling. The pt is fully able to ambulate and denies any severe calf pain. Pt has remained afebrile. The pt con firms that she has a follow up scheduled with [facility] on 04/28/2025 and will be attending. Pt recommended to also call [facility] to inquire about reported symptoms and advisement on plan of care. Pt given advisement on s/s to look out for and when to present to the [facility]. Pt agreeable and stated understanding. * Telephone Encounter - Ariadna Menezes RN - 04/22/2025 11:36 AM EST Telephone call to pt via [facility] Mike [phone]. Pt did not show up to [facility] due to pain in her legs from vascular procedure last week. Today she denies fever, chills, red streaks to skin around wound, reports using cream that her sister gave her and it's doing better. Advised pt to come to [facility] today or tomorrow, pt declines. She also declines to schedule sick on site appointment 04/25/25 because she is not sure how she will be feeling. Slab Puller encouraged her to call back 04/25/25 to schedule appointment. Reviewed [facility] hours, NTTS iron handler, reviewed to urgently seek medical attention if sxs of infection appear, pt verbalized understanding. * Telephone Encounter - Zoe Beach RN - 04/21/2025 9:25 AM EST Telephone call placed to pt to status check. No answer. Will retask. * Telephone Encounter - Rebekah Rashid RN - 04/19/2025 9:19 AM EST TC placed to pt via [employer] plug cutting machine operator (Roberto ID#[id number]) for triage. Pt reports they are currently in between cancer treatments. Pt reports they have a rash beneath both of their breasts, and an open wound has developed. Pt reports clear, watery foul-smelling discharge from the wound. Pt reports they have been evaluated for the rash in the past, and the provider prescribed a powder for treatment. Pt r eports they have been using the powder with no relief. Pt reports having the rash with wound on andoff for the last couple of months but has since worsened from its baseline. Pt denies fever or chills. Pt reports warmth only after applying the powder. Pt denies redness or swelling to the site. Pt reports they were admitted to the hospital March 25 and since then, the rash and wound have appeared and worsened. Advised pt due to open wound and foul-smelling odor and discharge, recommended tocome to office for evaluation today. Pt reports they are unable to come to the office today since they just had a surgical procedure done on their veins on 04/15/25 on right leg and it is painful. Pt r eports they also have other things to do today and are unable to come to office. Advised pt importance of seeking evaluation today due to symptoms and risk for infection. Advised of [facility] extended hours today. Advised pt if unable to come to [facility] today, recommended to seek ED evaluation. Pt reports they will try to come to the clinic tomorrow. Advised pt to call office with worsening symptoms. Advised pt again recommended to seek provider evaluation today. Pt verbalized understanding and denies questions at this time. Will task to team for follow up PRN. Multiple (2) protocols were used on this call. Disposition for Call: See in Office or Video Visit Today Protocol Used: Rash or Redness - Localized (Adult) Protocol-Based Disposition: See in Office or Video Visit Today Video visit offer not recorded Positive Triage Question: * Patient wants to be seen * All higher-acuity triage questions were negative Care Advice Discussed: * Reasons To Call Back - Rash spreads or becomes worse - Rash lasts longer than 1 week - You become worse Protocol Used: Wound Infection Suspected (Adult) Protocol-Based Disposition: See in Office or Video Visit Today Video visit offer not recorded Positive Triage Question: * Patient wants to be seen * All higher-acuity triage questions were negative Care Advice Discussed: * Reasons To Call Back - Fever occurs - You become worse * Telephone Encounter - Rukhsana Espinosa - 04/19/2025 9:13 AM EST Symptoms: Rash or Redness on One Body Area Only, Skin Peeling Outcome: Schedule an urgent appointment (within 4 hours) or talk to a nurse or provider soon Reason: Skin is painful to touch The caller accepted this outcome. Contact pt at [phone] Need plug cutting machine operator documented in this encounter Plan of Treatment Upcoming Encounters Date Type Department Care Team (Late st Contact Info) Description 05/10/2025 1:30 PM EST Clinical Support [facility] MEDICINE [address] [place] [address] 05/11/2025 2:30 PM EST Office Visit [facility] [address] [place] [address] Bryson Hobson DMD [address] [place] [address] 05/11/2025 3:00 PM EST Office Visit [facility] [address] [place] [address] Talha Herrera 05/16/2025 2:00 PM EST Telemedicine [facility] [address] [place] [address] Colette Diop RN 505 [place] [address] 05/20/2025 3:00 PM EST Office Visit [facility] [address] [place] [address] Talha Herrera 06/15/2025 1:00 PM EST Office Visit [facility] [address] [place] [address] Zi Lozano DDS [address] [place] [address] documented as of this encounter Goals Goal Patient Goal Type Associated Problems Recent Progress Patient-Stated? Author Help patients manage their type 2 diabetes Care Plan Help patients manage their type 2 diabetes No Zoe Beach, BRICE Weekly blood pressure task Care Plan Weekly blood pressure task No Zoe Beach, BRICE Help patients manage their type 2 diabetes Care Plan Help patients manage their type 2 diabetes No Zoe Beach, BRICE Patient has chronic kidney disease Care Plan Patient has chronic kidney disease No Zoe Beach, BRICE Weekly blood pressure task Care Plan Weekly blood pressure task No Zoe Beach, RN Patient has chronic kidney disease Care Plan Patient has chronic kidney disease No Zoe Beach, BRICE documented as of this encounter Visit Diagnoses Not on filedocumented in this encounter Additional Health Concerns Active Problems Noted Date Diagnosed Date Help patients manage their type 2 diabetes 04/21 Weekly blood pressure task 04/21/2025 Help patients manage their type 2 diabetes 04/21 Patient has chronic kidney disease 04/21/2025 Weekly blood pressure task 04/21/2025 Patient has chronic kidney disease 04/21/2025 Assessment Noted Time PHQ-9 Depression Total Score: 14 03/08/2 025 11:30 AM EDT documented as of this encounter Care Teams Nurse Technician Relationship Specialty Start Date End Date Kristy Wilder MD [address] [place] [address] PCP - General Internal Medicine 12/26/22 Bradly Gonzalez MD [address] [place] [address] [address] [place] [address] Vascular Surgery 07/17/22 Rk Smith 100 [facility] [address] [place] [address] Otolaryngology 01/14/25 Buck Hess DPM 175 [facility] [address] [place] [address] Podiatry 01/14/25 Rosanne Mosley 03/28/25 Evita Hanna Corporate Compliance ManagerVibrator Equipment Tester 11/04/[address] [address] Physical Therapy 07/17/22 documented as of this encounter
--- OUTSIDE RECORDS SUMMARY | 2025-04-28 19:02 | XMS_ITS | Encounter Summary ---
Author Organization [employer] Address 75 [facility] 7 [place] [address] Care Team Providers Care Latex Caster Name Role Phone Kristy Wilder MD Primary Care Pro vider Bradly Gonzalez MD Unavailable Rk Smith Unavailable Buck Hess DPM Unavailable [phone] Rosanne Mosley Unavailable Reason for Visit * Reason Onset Date Comments PT-1 12/31/2024 Encounter Details Date Type Department Care Team ([facility] st Contact Info) Description 12/31/2024 Telephone [facility] MEDICINE [address] [place], [place] [phone] Kristy Wilder MD 230 [place], [place] [phone] PT-1 Social History Tobacco Use Types Packs/Day [...] Y/N: Yes Provider name or facility name: [facility] Facility Address: [address] [place] [address] Escort needed: Y/N: Yes Do you have a wheelchair: Y/N: No If yes- Manual or electric: N/A Visits: 3 times a month documented in this encounter Plan of Treatment Upcoming Encounters Date Type Department Care Team (Late st Contact Info) Description 05/10/2025 1:30 PM EST Clinical Support [facility] MEDICINE [address] [place] [address] 05/11/2025 2:30 PM EST Office Visit [facility] [address] [place] [address] Bryson Hobson, DMD 505 [place] [address] 05/11/2025 3:00 PM EST Office Visit [facility] [address] [place] [address] Talha Herrera 05/16/2025 2:00 PM EST Telemedicine [facility] [address] [place] [address] Colette Diop RN 505 [place], [place] 05/20/2025 3:00 PM EST Office Visit [facility] [address] [place] [address] Talha Herrera 06/15/2025 1:00 PM EST Office Visit [facility] [address] [place] [address] Zi Lozano DDS 230 [place] [address] documented as of this encounter Visit Diagnoses Not on filedocumented in this encounter Additional Health Concerns Assessment Noted Time PHQ-9 Depression Total Score: 16 025 2:11 PM EDT documented as of this encounter Care Teams Latex Caster Relationship Specialty Start Date End Date Kristy Wilder MD [address] [place] [address] PCP - General Internal Medicine 12/26/22 Bradly Gonzalez MD [address] [place] [address] Vascular Surgery 07/17/22 Rk Smith [address] [facility] [address] [place] [address] Otolaryngology 01/14/25 Buck Hess DPM 175 [facility] [address] [place] [address] Podiatry 01/14/25 Rosanne Mosley 03/28/25 Evita Hanna Operators TeacherDigital Strategist Senior Manager 11/04/[address] [address] Physical Therapy 07/17/22 documented as of this encounter
--- OUTSIDE RECORDS SUMMARY | 2025-04-28 19:02 | XMS_ITS | Encounter Summary ---
Author Organization [employer] Address 75 [facility] 7 [place] [address] Care Team Providers Care Resource Management Planner Name Role Phone Kristy Wilder MD Primary Care Pro vider Bradly Gonzalez MD Unavailable Rk Smith Unavailable Buck Hess DPM Unavailable [phone] Rosanne Mosley Unavailable Reason for Visit * Reason Onset Date Comments Letter for School/Work 12/26/2022 Encounter Details Date Type Department Care Team (Late st Contact Info) Description 12/26/2022 Telephone [facility] MEDICINE 230 [place], [place] [phone] Kristy Wilder MD [address] [place], [place] [phone] Letter for School/Work Social History Tobacco Use [...] for PCP to make a letter for [employer] hours and dx on letter to be faxed to [phone] documented in this encounter Plan of Treatment Upcoming Encounters Date Type Department Care Team (Late st Contact Info) Description 05/10/2025 1:30 PM EST Clinical Support [facility] MEDICINE 230 [place] [address] 05/11/2025 2:30 PM EST [facility] Visit [facility] 505 [place] [address] Bryson Hobson DMD 505 [place] [address] 05/11/2025 3:00 PM EST Office Visit [facility] [address] [place] [address] Talha Herrera 05/16/2025 2:00 PM EST Telemedicine [facility] 505 [place] [address] Colette Diop, RN [address] [place] [address] 05/20/2025 3:00 PM EST Office Visit [facility] 505 [place] [address] Talha Herrera 06/15/2025 1:00 PM EST Office Visit [facility] [address] [place] [address] Zi Lozano DDS 230 [place] [address] documented as of this encounter Visit Diagnoses Not on filedocumented in this encounter Additional Health Concerns Assessment Noted Time PHQ-9 Depression Total Score: 11 022 1:16 PM EST documented as of this encounter Care Teams Resource Management Planner Relationship Specialty Start Date End Date Kristy Wilder MD [address] [place] [address] PCP - General Internal Medicine 12/26/22 Bradly Gonzalez MD [address] [place] [address] Vascular Surgery 07/17/22 Rk Smith [facility] [address] [place] [address] Otolaryngology 01/14/25 Buck Hess DPM 175 [facility] [address] [place] [address] Podiatry 01/14/25 Rosanne Mosley 03/28/25 Evita Hanna Rn UrologyPhysics Instructor 11/04/[address] [address] Physical Therapy 07/17/22 documented as of this encounter
--- OUTSIDE RECORDS SUMMARY | 2025-04-28 19:02 | XMS_ITS | Clinical Summary ---
Author Organization [facility] Address [address] [place] [address] Care Team Providers Care Lifter Driver Name Role Phone Bryce Rufustaijuice Partha Primary Care Provider [phone] Allergies Active Allergy Reactions Criticality Noted Date [...] (2 - Td or Tdap) 04/09/2029 04/09/2019 Medical Devices Implanted Type Area Panel Saw Operator Device Identifier Shelf Expiration Date Model / Serial / Lot System Closure Suture Medicated Perclose Proglide 6fr - [id number] Implanted:Qty: 1 on 02/04/2019 at [facility] Implant [employer] [id number] 126 73-03 / / Coil Embolization Neurovascular [place] 0.035in [id number] Tornado - [id number] Implanted:Qty: 1 on 02/04/2019 at [facility] Implant [employer] [id number] 10/11/19 23 [id number] / / [id number] Coil Embolization Neurovascular [place] 0.035in [id number] Tornado - [id number] Implanted:Qty: 1 on 02/04/2019 at [facility] Implant [employer] [id number] 08/03/19 24 [id number] / / [id number] Coil Embolization Neurovascular [place] 0.035in [id number] Tornado - [id number] Implanted:Qty: 1 on 02/04/2019 at [facility] Implant [employer] [id number] 08/03/19 24 [id number] / / [id number] Coil Embolization Neurovascular [place] 0.035in 6uio8wz Tornado - [id number] Implanted:Qty: 1 on 02/04/2019 at [facility] Implant [employer] [id number] 08/03/19 24 [id number] / / [id number] [place] [address] Care Teams Lifter Driver Relationship Specialty Start Date End Date Davon Wu [address] [place] [address] PCP - General Internal Medicine 09/28/18
--- OUTSIDE RECORDS SUMMARY | 2025-04-28 19:02 | XMS_ITS | Encounter Summary ---
Author Organization [employer] Address 75 [facility] 7t [place] [address] Care Team Providers Care Nitrator Operator Name Role Phone Khloe Fonseca Primary Care Provider Kristy Ring MD Primary Care Pro vider Bradly Gonzalez MD Unavailable Rk Smith Unavailable Buck Hess DPM Unavailable [phone] Rosanne Mosley Unavailable Reason for Visit * Reason Onset Date Comments pt1 10/16/2022 Encounter Details Date Type Department Care Team (Late st Contact Info) Description 10/16/2022 Telephone [facility] MEDICINE [address] [place] [address] Khloe Fonseca FNP pt1 Social History Tobacco [...] Nannette Whittaker - 10/24/2022 10:19 AM EDT Trade Clerk called and left voicemail for pt stating Pt1 Request was approved and she may call to schedule * Telephone Encounter - Nannette Whittaker - 10/24/2022 10:17 AM EDT Patient will recieve approval / denial letter via mail. PT-1 Request [id number] Pending - [facility] Pulmon[facility] [address] [place] [address] [place] [address] * Telephone Encounter - Eddie Sousa - 10/21/2022 10:14 AM EDT Tc from pt requesting status on PT1. Date: October 22, 2022 Time: 2:45 pm address:[address] [place] [address] [place] specialty:Pulmonology Center # visits: dealer analyst: no Wheelchair: no * Telephone Encounter - Marko Rodriguez - 10/16/2022 11:51 AM EDT Tc from pt requesting pt1 ride Date: october 22, 2022 Time: 2:45 pm address:[address] [place] [address] [place] [address] specialty:Pulmonology Center # visits: dealer analyst: no Wheelchair: no documented in this encounter Plan of Treatment Upcoming Encounters Date Type Department Care Team (Late st Contact Info) Description 05/10/2025 1:30 PM EST Clinical Support [facility] MEDICINE [address] [place] [address] 05/11/2025 2:30 PM EST Office Visit [facility] ADULT DENTAL [address] [place] [address] Bryson Hobson, DMD [address] [place] [address] 05/11/2025 3:00 PM EST Office Visit [facility] ADULT DENTAL [address] [place] [address] Talha Herrera 05/16/2025 2:00 PM EST Telemedicine [facility] MED [facility] PEDS [address] [place] [address] Colette Diop RN 505 [place], [place] 05/20/2025 3:00 PM EST Office Visit [facility] ADULT DENTAL [address] [place] [address] Talha Herrera 06/15/2025 1:00 PM EST Office Visit [facility] ADULT DENTAL [address] [place] [address] Zi Lozano DDS 230 [place] [address] documented as of this encounter Visit Diagnoses Not on filedocumented in this encounter Additional Health Concerns Assessment Noted Time PHQ-9 Depression Total Score: 11 022 1:16 PM EST documented as of this encounter Care Teams Nitrator Operator Relationship Specialty Start Date End Date Khloe Fonseca FNP PCP - General Family Medicine 02/05/22 12/25/22 Kristy Wilder MD 230 [place] [address] PCP - General Internal Medicine 12/26/22 Bradly Gonzalez MD [address] [place] [address] Vascular Surgery 07/17/22 Rk Smith [address] [facility] [address] [place] [address] Otolaryngology 01/14/25 Buck Hess DPM 175 [facility] [address] [place] [address] Podiatry 01/14/25 Rosanne Mosley 03/28/25 Evita Hanna Metal Cut Off Saw TenderPatrol Sergeant Sheriff'S Office 11/04/[address] [address] Physical Therapy 07/17/22 documented as of this encounter
--- OUTSIDE RECORDS SUMMARY | 2025-04-28 19:02 | XMS_ITS | Encounter Summary ---
Author Organization [employer] Address 75 [facility] 7t h Floor [place] [id number] Care Team Providers Care Rubber And Plastics Worker Name Role Phone Khloe Fonseca NEWS ASSISTANT Primary Care Provider Kristy Ring MD Primary Care Pro vider Bradly Gonzalez MD Unavailable Rk Smith Unavailable Buck Hess DPM Unavailable [phone] Rosanne Mosley Unavailable Reason for Visit * Reason Onset Date Comments Med Refill [facility] order 08/25/2022 Order # [id number] Encounter Details Date Type Department Care Team (Late st Contact Info) Description 08/25/2022 Refill [facility] MEDICINE [address] [place] [address] Khloe Fonseca FNP Type 2 diabetes mellitus without complication, without long-term current use of insulin ([facility]) Social History [...] 05/10/2025 1:30 PM EST Clinical Support [facility] MEDICINE [address] [place] [address] 05/11/2025 2:30 PM EST Office Visit [facility] ADULT DENTAL [address] [place] [address] Bryson Hobson, FRANCOISE [address] [place] [address] 05/11/2025 3:00 PM EST Office Visit [facility] ADULT DENTAL [address] [place] [address] Talha Herrera 05/16/2025 2:00 PM EST Telemedicine [facility] [address] [place] [address] Colette Diop RN [address] [place] [address] 05/20/2025 3:00 PM EST Office Visit [facility] ADULT DENTAL [address] [place] [address] Talha Herrera 06/15/2025 1:00 PM EST Office Visit [facility] ADULT DENTAL [address] [place] [address] Zi Lozano DDS [address] [place] [address] documented as of this encounter Visit Diagnoses Diagnosis Type 2 diabetes mellitus without complication, without long-term current use of insulin (HCC) documented in this encounter Additional Health Concerns Assessment Noted Time PHQ-9 Depression Total Score: 11 022 1:16 PM EST documented as of this encounter Care Teams Rubber And Plastics Worker Relationship Specialty Start Date End Date Khloe Fonseca FNP PCP - General Family Medicine 02/05/22 12/25/22 Kristy Wilder MD [address] [place] [address] PCP - General Internal Medicine 12/26/22 Bradly Gonzalez MD [address] [place] [address] Vascular Surgery 07/17/22 Rk Smith 100 [facility] [address] [place] [address] Otolaryngology 01/14/25 Buck Hess DPM [address] [place] [address] [address] [place] [address] Podiatry 01/14/25 Rosanne Mosley 03/28/25 Evita Hanna Dolly OperatorCenter Director 11/04/[address] [address] Physical Therapy 07/17/22 documented as of this encounter
--- OUTSIDE RECORDS SUMMARY | 2025-04-28 19:02 | XMS_ITS | Encounter Summary ---
Author Organization [employer] Address 75 [facility] 7t [place] [address] Care Team Providers Care Executive Sous Chef Name Role Phone Khloe Fonseca PICTURE ENLARGER Primary Care Provider Kristy Ring MD Primary Care Pro vider Bradly Gonzalez MD Unavailable Rk Smith Unavailable Buck Hess DPM Unavailable [phone] Rosanne Mosley Unavailable Encounter Details Date Type Department Care Team (Late Contact Info) Description 12/09/2022 Abstract [facility] MEDICINE [address] [place] [address] Khloe Fonseca FNP Social History Tobacco Use [...] Description 05/10/2025 1:30 PM EST Clinical Support [facility] MEDICINE [address] [place] [address] 05/11/2025 2:30 PM EST Office Visit [facility] ADULT DENTAL [address] [place] [address] Bryson Hobson, DMD [address] [place] [address] 05/11/2025 3:00 PM EST Office Visit [facility] ADULT DENTAL [address] [place] [address] Talha Herrera 05/16/2025 2:00 PM EST Telemedicine [facility] MED & PEDS [address] [place] [address] Colette Diop RN [address] [place] [address] 05/20/2025 3:00 PM EST Office Visit [facility] ADULT DENTAL [address] [place] [address] Talha Herrera 06/15/2025 1:00 PM EST Office Visit [facility] ADULT DENTAL [address] [place] [address] Zi Lozano DDS [address] [place] [address] documented as of this encounter Visit Diagnoses Not on filedocumented in this encounter Additional Health Concerns Assessment Noted Time PHQ-9 Depression Total Score: 11 022 1:16 PM EST documented as of this encounter Care Teams Executive Sous Chef Relationship Specialty Start Date End Date Khloe Fonseca FNP PCP - General Family Medicine 02/05/22 12/25/22 Kristy Wilder MD [address] [place] [address] PCP - General Internal Medicine 12/26/22 Bradly Gonzalez MD [address] [place] [address] Vascular Surgery 07/17/22 Rk Smith 100 [facility] [address] [place] [address] Otolaryngology 01/14/25 Buck Hess DPM [address] [place] [address] Podiatry 01/14/25 Rosanne Mosley 03/28/25 Evita Hanna Car RacerPatient Resource Specialist 11/04/24 [facility] [address] [place] [address] Physical Therapy 07/17/22 documented as of this encounter
--- OUTSIDE RECORDS SUMMARY | 2025-04-28 19:02 | XMS_ITS | Encounter Summary ---
Author Organization [employer] Address 75 [facility] 7t [place] [address] Care Team Providers Care Hydrometeorology Teacher Name Role Phone Kristy Wilder MD Primary Care Pro vider Bradly Gonzalez MD Unavailable Rk Smith Unavailable Buck Hess DPM Unavailable [phone] Rosanne Mosley Unavailable Reason for Visit * Reason Comments Med Refill Encounter Details Date Type Department Care Team (Late st Contact Info) Description 09/25/2023 Refill [facility] MEDICINE [address] [place], [place] [phone] Kristy Wilder MD [address] [place], [place] [phone] Primary insomnia Social History Tobacco Use Types [...] Description 05/10/2025 1:30 PM EST Clinical Support [facility] MEDICINE [address] [place] [address] 05/11/2025 2:30 PM EST Office Visit [facility] ADULT DENTAL [address] [place] [address] Bryson Hobson DMD [address] [place] [address] 05/11/2025 3:00 PM EST Office Visit [facility] ADULT DENTAL [address] [place] [address] Talha Herrera 05/16/2025 2:00 PM EST Telemedicine [facility] [address] [place] [address] Colette Diop, BRICE [address] [place] [address] 05/20/2025 3:00 PM EST Office Visit [facility] ADULT DENTAL [address] [place] [address] Talha Herrera 06/15/2025 1:00 PM EST Office Visit [facility] ADULT DENTAL [address] [place] [address] Zi Lozano DDS [address] [place] [address] documented as of this encounter Visit Diagnoses Diagnosis Primary insomnia Persistent disorder of initiating or maintaining sleep documented in this encounter Additional Health Concerns Assessment Noted Time PHQ-9 Depression Total Score: 16 023 11:20 AM EDT documented as of this encounter Care Teams Hydrometeorology Teacher Relationship Specialty Start Date End Date Kristy Wilder MD [address] [place] [address] PCP - General Internal Medicine 12/26/22 Bradly Gonzalez MD [address] [place] [address] Vascular Surgery 07/17/22 Rk Smith 100 [facility] [address] [place] [address] Otolaryngology 01/14/25 Buck Hess DPM [address] [facility] [address] [place] [address] Podiatry 01/14/25 Rosanne Mosley 03/28/25 Evita Hanna Letter Of Credit Document ExaminerSugar Cane Planting Equipment Operator 11/04/[address] [address] Physical Therapy 07/17/22 documented as of this encounter
--- OUTSIDE RECORDS SUMMARY | 2025-04-28 19:02 | XMS_ITS | Encounter Summary ---
Author Organization [facility] Address [address] [place] [address] Care Team Providers Care Greens Cutter Name Role Phone Davon Wu Primary Care Provider [phone] Encounter Details Date Type Department Care Team (Late st Contact Info) Description 10/31/2020 Orders Only [facility] Xray [address] [place] [address] Winifred Winston MD [address] [place], [place] [phone] Social History Tobacco Use Types Packs/Day Years [...] on filedocumented in this encounter Care Teams Greens Cutter Relationship Specialty Start Date End Date Davon Wu [address] [place] [address] PCP - General Internal Medicine 09/28/18 documented as of this encounter
--- OUTSIDE RECORDS SUMMARY | 2025-04-28 19:02 | XMS_ITS ---
Author Organization [facility] Address [address] [place] [address] Care Team Providers Care Tiger Machine Operator Name Role Phone Davon Wu Primary Care Provider [phone] Active Problems Problem Noted Date Diagnosed Date [...]
--- OUTSIDE RECORDS SUMMARY | 2025-04-28 19:02 | XMS_ITS | Encounter Summary ---
Author Organization [employer] Address 75 [facility] 7t [place] [address] Care Team Providers Care Human Services Supervisor Name Role Phone Khloe Fonseca Primary Care Provider Kristy Ring MD Primary Care Pro vider Bradly Gonzalez MD Unavailable Rk Smith Unavailable Buck Hess DPM Unavailable [phone] Rosanne Mosley Unavailable Reason for Visit * Reason Onset Date Comments pt1 10/03/2022 Encounter Details Date Type Department Care Team (Late st Contact Info) Description 10/03/2022 Telephone [facility] MEDICINE [address] [place] [address] Khloe Fonseca FNP pt1 Social History Tobacco [...] 3 10/03/2022 9:34 AM EDT Jessenia Boston, CELEBRITY MANAGER Not being able to stop or control [...] oct 07 2022 Time: 2:30 pm address: [address] [place] [address] [address], [place] [address] specialty: # visits: project administrator: no Wheelchair: no Date:10/23/22 Time:02 pm address: [facility] specialty: PCP # visits: project administrator: no Wheelchair: no Date:11/07/22 Time: 1:30 address: [facility] specialty: PCP # visits: project administrator: no Wheelchair:no documented in this encounter Plan of Treatment Upcoming Encounters Date Type Department Care Team (Late st Contact Info) Description 05/10/2025 1:30 PM EST Clinical Support [facility] MEDICINE [address] [place] [address] 05/11/2025 2:30 PM EST Office Visit [facility] ADULT DENTAL [address] [place] [address] Bryson Hobson, DMD [address] [place] [address] 05/11/2025 3:00 PM EST Office Visit [facility] ADULT DENTAL [address] [place] [address] Talha Herrera 05/16/2025 2:00 PM EST Telemedicine [facility] MED & PEDS [address] [place] [address] Colette Diop RN 505 [place], [place] 05/20/2025 3:00 PM EST Office Visit [facility] ADULT DENTAL [address] [place] [address] Talha Herrera 06/15/2025 1:00 PM EST Office Visit [facility] ADULT DENTAL [address] [place] [address] Zi Lozano DDS [address] [place] [address] documented as of this encounter Visit Diagnoses Not on filedocumented in this encounter Additional Health Concerns Assessment Noted Time PHQ-9 Depression Total Score: 11 022 1:16 PM EST documented as of this encounter Care Teams Human Services Supervisor Relationship Specialty Start Date End Date Khloe Fonseca FNP PCP - General Family Medicine 02/05/22 12/25/22 Kristy Wilder MD [address] [place] [address] PCP - General Internal Medicine 12/26/22 Bradly Gonzalez MD [address] [place] [address] Vascular Surgery 07/17/22 Rk Smith 100 [facility] [address] [place] [address] Otolaryngology 01/14/25 Buck Hess DPM [address] [place] [address] Podiatry 01/14/25 Rosanne Mosley 03/28/25 Evita Hanna Zipper CutterRn Complex Care 11/04/[address] [address] Physical Therapy 07/17/22 documented as of this encounter
--- OUTSIDE RECORDS SUMMARY | 2025-04-28 19:02 | XMS_ITS | Encounter Summary ---
Author Organization [employer] Address 75 [facility] 7t [place] [address] Care Team Providers Care Woven Paper Hat Mender Name Role Phone Kristy Wilder MD Primary Care Pro vider Bradly Gonzalez MD Unavailable Rk Smith Unavailable Buck Hess DPM Unavailable [phone] Rosanne Mosley Unavailable Reason for Visit * Reason Onset Date Comments Reschedule 07/07/2023 Encounter Details Date Type Department Care Team ([facility] st Contact Info) Description 07/07/[address] [facility] MEDICINE [address] [place], [place] [phone] Kristy Wilder MD [address] [place], [place] [phone] Reschedule Social History Tobacco Use Types Packs/Day [...] Tc from pt requesting to r/s 07/25 JACK SPOOLER TENDER appointment due to pt having 2 appointments scheduled same day and will be doing chemo. Please contact pt at [phone] (Czech) documented in this encounter Plan of Treatment Upcoming Encounters Date Type Department Care Team (Late st Contact Info) Description 05/10/2025 1:30 PM EST Clinical [address] [facility] MEDICINE [address] [place] [address] 05/11/2025 2:30 PM EST Office Visit [facility] ADULT DENTAL [address] [place] [address] Bryson Hobson DMD [address] [place] [address] 05/11/2025 3:00 PM EST Office Visit [facility] ADULT DENTAL [address] [place] [address] Talha Herrera 05/16/2025 2:00 PM EST Telemedicine [facility] MED & PEDS [address] [place] [address] Colette Diop, RN [address] [place] [address] 05/20/2025 3:00 PM EST Office Visit [facility] ADULT DENTAL [address] [place] [address] Talha Herrera 06/15/2025 1:00 PM EST Office Visit [facility] ADULT DENTAL [address] [place] [address] Zi Lozano, DDS [address] [place] [address] documented as of this encounter Visit Diagnoses Not on filedocumented in this encounter Additional Health Concerns Assessment Noted Time PHQ-9 Depression Total Score: 16 023 11:20 AM EDT documented as of this encounter Care Teams Woven Paper Hat Mender Relationship Specialty Start Date End Date Kristy Wilder MD [address] [place] [address] PCP - General Internal Medicine 12/26/22 Bradly Gonzalez MD [address] [place] [address] Vascular Surgery 07/17/22 Rk Smith 100 [facility] 100 [place] [address] Otolaryngology 01/14/25 Buck Hess DPM [address] [place] [address] [address] [place] [address] Podiatry 01/14/25 Rosanne Mosley 03/28/25 Evita Hanna Certified OpticianDirector Of Sports Performance 11/04/24 [facility] [address] [place] [address] Physical Therapy 07/17/22 documented as of this encounter
--- OUTSIDE RECORDS SUMMARY | 2025-04-28 19:02 | XMS_ITS | Encounter Summary ---
Author Organization [email or web address] Address 75 [facility] 7t [place] [address] Care Team Providers Care Insole And Outsole Preparer Name Role Phone Kristy Wilder MD Primary Care Pro vider Bradly Gonzalez MD Unavailable Rk Smith Unavailable Buck Hess DPM Unavailable [phone] Rosanne Mosley Unavailable Reason for Visit * Reason Comments Med Refill Encounter Details Date Type Department Care Team (Late st Contact Info) Description 02/25/2025 Refill [facility] MEDICINE [address] [place], [place] [phone] Kristy Wilder MD [address] [place], [place] [phone] Primary insomnia Social History Tobacco Use Types [...] Description 05/10/2025 1:30 PM EST Clinical Support [facility] MEDICINE [address] [place] [address] 05/11/2025 2:30 PM EST Office Visit [facility] ADULT DENTAL [address] [place] [address] Bryson Hobson DMD [address] [place] [address] 05/11/2025 3:00 PM EST Office Visit [facility] ADULT DENTAL [address] [place] [address] Talha Herrera 05/16/2025 2:00 PM EST Telemedicine [facility] MED & PEDS [address] [place] [address] Colette Diop RN [address] [place] [address] 05/20/2025 3:00 PM EST Office Visit [facility] ADULT DENTAL [address] [place] [address] Talha Herrera 06/15/2025 1:00 PM EST Office Visit [facility] ADULT DENTAL [address] [place] [address] Zi Lozano DDS [address] [place] [address] documented as of this encounter Visit Diagnoses Diagnosis Primary insomnia Persistent disorder of initiating or maintaining sleep documented in this encounter Additional Health Concerns Assessment Noted Time PHQ-9 Depression Total Score: 12 025 9:32 AM EDT documented as of this encounter Care Teams Insole And Outsole Preparer Relationship Specialty Start Date End Date Kristy Wilder MD [address] [place] [address] PCP - General Internal Medicine 12/26/22 Bradly Gonzalez MD [address] [place] [address] [address] [place] [address] Vascular Surgery 07/17/22 Rk Smith 100 [facility] [address] [place] [address] Otolaryngology 01/14/25 Buck Hess DPM 175 [facility] [address] [place] [address] Podiatry 01/14/25 Rosanne Mosley 03/28/25 Evita Hanna Coffee GrowerPrinted Forms Proofreader 11/04/24 [facility] [address] [facility] [address] Physical Therapy 07/17/22 documented as of this encounter
--- OUTSIDE RECORDS SUMMARY | 2025-04-28 19:02 | XMS_ITS | Clinical Summary ---
Author Organization [employer] Address [address] [facility] 7t [place] [address] Care Team Providers Care Ambulatory Nurse Name Role Phone Kristy Wilder MD Primary Care Pro vider Bradly Gonzalez MD Unavailable Rk Smith Unavailable Buck Hess DPM Unavailable [phone] Rosanne Mosley Unavailable Allergies Active Allergy Reactions Criticality Noted Date Comments Pijwwbmtv-Qd-Aiiojzpsujbxe Unknown 3 Hydromorphone Rash Low 06/28/2020 Other [...] 90 tablet 1 025 Active nystatin (Mycostatin) 392611 UNIT/GM powder Apply topically if needed each [...] THREE TIMES DAILY 100 strip 11 Active amoxicillin-clavu lanate (Augmentin) 875-125 MG tablet Take 1 tablet by mouth 2 times daily for 10 days. 20 tablet 04/27/20 25 4:21 PM EST 2024 Active FREESTYLE LITE test strip TEST BLOOD SUGAR THREE TIMES DAILY 100 strip 11 024 2024 Discontinued TRUEplus Lancets 33G misc TEST BLOOD SUGAR THREE TIMES DAILY 100 each 11 024 2024 Discontinued Active Problems Problem Noted Date [...] r/t lung cancer diagnosis Pt will contact [facility] about increasing hours F/u PRN Therapeutic opioid [...] PCP Renal cell carcinoma of right kidney ([facility]/HCC) 0 07/21/2019 Overview (01/19/2023): diagnosed back in 2018 status post nephrectomy it was grade 3. status post nephrectomy, at [facility] in January. 9.5 cm [...] organization. 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; Presbyopia 04/15/2025 Travel 04/06/2025 Telephone [facility] MEDICINE [address] [place] [address] Kristy Wilder MD caroline recall 04/04/2025 Orders Only [facility] MEDICINE [address] [place] [address] Kristy Wilder MD Hypothyroidism, unspecified type (Primary Dx) 04/04/2025 Results Follow-Up [facility] [address] [place] [phone] Kristy Wilder MD TSH, T4, Free, Comprehensive Metabolic Panel, Lipid Panel, Standard 04/04/2025 Orders Only GENERIC EXTERNAL DATA DEPARTMENT Provider, Generic External Data 04/04/2025 Refill [facility] [address] [place] [phone] Kristy Wilder MD Type 2 diabetes mellitus with other specified complication, without long-term current use of insulin ([facility]) 03/29/2025 Patient Outreach [facility] MED & PEDS [address] [place] [address] Kristy Wilder MD Care Coordination (CP Care Coordination chart review ) 03/28/2025 Patient Outreach [facility] MED[facility]INE [address] [place] [phone] Kristy Wilder MD 03/22/2025 Refill [facility] [address] [place] [address] Kristy Wilder MD Acquired hypothyroidism 03/20/2025 Refill [facility] [address] [place] [address] Kristy Wilder MD 03/15/[address] [address] Kristy Wilder MD Nurse Triage 03/11/2025 Refill [facility] [address] [place] [address] Kristy Wilder MD Therapeutic opioid induced constipation 03/08/2025 10:45 AM EDT Office Visit [facility] MEDICINE [address] [place] [phone] Kristy Wilder MD Varicose veins of lower extremity, unspecified laterality, unspecified whether complicated (Primary Dx); Encounter for vaccination; Encounter for immunization; Essential hypertension; Varicose veins of both lower extremities, unspecified whether complicated; Type 2 diabetes mellitus with other specified complication, without long-term current use of insulin ([facility]/HCC); Health care maintenance; Depressive disorder; Memory loss 03/08/2025 Travel 03/07/2025 Telephone [facility] MED[facility] [address] [place] [phone] Kristy Wilder MD chart prep 03/02/2025 Refill [facility] MED[facility] [address] [place] [address] Kristy Wilder MD Primary hypertension; Mixed hyperlipidemia 03/01/2025 10:00 AM EDT Office Visit [facility] ADULT DENTAL [address] [place] [address] Zi Lozano DDS 02/28/2025 Patient Outreach [facility] MEDICINE [address] [place] [address] Kristy Wilder MD Pre-visit Planning (SDOH screening was completed on 09/20/2024) 02/28/2025 Refill [facility] MED[facility] [address] [place] [address] Kristy Wilder MD Primary insomnia 02/25/2025 Refill [facility] [address] [place] [address] Kristy Wilder MD Primary insomnia 02/22/2025 2:00 PM EDT Clinical Support [facility] MED [facility] PEDS [address] [place] [address] Colette Diop RN Back pain, unspecified back location, unspecified back pain laterality, unspecified chronicity 02/22/2025 Refill [facility] MED [facility] PED[facility] [address] [place] [address] Colette Diop RN Back pain, unspecified back location, unspecified back pain laterality, unspecified chronicity 02/22/2025 Travel 02/09/2025 Refill [facility] MED[facility]INE [address] [place] [address] Kristy Wilder MD 01/31/2025 Refill [facility] [address] [place] [address] Kristy Wilder MD Primary insomnia from Last [...] Description 05/10/2025 1:30 PM EST Clinical Support [facility] MED[facility]INE [address] [place] [address] 05/11/2025 2:30 PM EST Office Visit [facility] ADULT DENTAL [address] [place] [address] Bryson Hobson DMD [address] [place] [address] 05/11/2025 3:00 PM EST Office Visit [facility] ADULT DENTAL [address] [place] [address] Talha Herrera 05/16/2025 2:00 PM EST Telemedicine [facility] MED [facility] PEDS [address] [place] [address] Colette Diop RN [address] [place] [address] 05/20/2025 3:00 PM EST Office Visit [facility] ADULT DENTAL [address] [place] [address] Talha Herrera 06/15/2025 1:00 PM EST Office Visit [facility] ADULT DENTAL [address] [place] [address] Blake Zi, DDS [address] [place] [address] Health Maintenance Due Date Last Done Comments [...] 12/21/2024 Diabetes: Urine Protein Screening 12/22/2025 12/22/2024, 12/22/2024, 07/23/2023, Additional history exists Dental X-Ray: Bitewings 03/02/2026 03/01/2025 Lipid Panel 04/04/2026 04/04/2025, 07/11/2024, 12/19/2023, Additional history exists Tobacco Screening 04/27/2026 04/27/2025 Eye Exam 04/15/2027 04/15/2025, 11/0 12/2024, 04/15/2025, Additional history exists Dental X-Ray: Full Mouth 03/02/2028 025, 03/01/2025, 03/31/2023 Colonoscopy 11/23/2028 11/23/2018 Colorectal Cancer Screening 11/23/2028 [...] on patient's age to complete this topic Goals Goal Patient Goal Type Associated Problems Recent Progress Patient-Stated? Author Help patients manage their type 2 diabetes Care Plan Help patients manage their type 2 diabetes Zoe Clayton, RN Weekly blood pressure task Care Plan Weekly blood pressure task Karan Claytony, BRICE Help patients manage their type 2 diabetes Care Plan Help patients manage their type 2 diabetes No Zoe Beach, RN Patient has chronic [...] Plan Patient has chronic kidney disease No Rin Amie Weekly blood pressure task Care Plan Weekly blood pressure task No Lozano, Zi, DDS Weekly blood pressure task Care Plan Weekly blood pressure task No Lozano, Zi, DDS Patient has chronic kidney disease Care Plan Patient has chronic kidney disease No Lozano, Zi, DDS Patient has chronic kidney disease Care Plan Patient has chronic kidney disease No Lozano, Zi, DDS Procedures Procedure Name Priority Date/Time Associated Diagnosis Comments CASE PRESENTATION, DETAILED AND EXTENSIVE TREATMENT PLANNING Routine 04/27/2025 3:00 PM EST CONSULTATION - DIAGNOSTIC SERVICE PROVIDED BY DENTIST OR PHYSICIAN OTHER THAN REQUESTING DENTIST OR PHYSICIAN Routine 04/27/2025 3:00 PM EST COMPREHENSIVE METABOLIC PANEL Routine 04/04/2025 9:49 AM [...] Stimulating Hormone 5.82(H) 0.32 - 4.0 uIU/mL [facility] Comment:Note: A sustained TS H level above 2.5 uIU/mL may warrant further investigation. TSH 3rd Generation ([facility]) Blood Venous blood specimen / Unknown 04/04/2025 9:49 AM EDT 04/04/2025 11:39 AM EDT us Kristy Mosley MD LAB BLOOD ORDERAB LES Final Result Performing Organization Address [facility] Co de Phone Number [facility] [address] [place] [phone] * T4, Free (04/04/2025 9:49 AM EDT) Free T4 (Free Thyroxine) 0.94 0.71 - 1.85 ng/dL [facility] Blood Venous blood specimen / Unknown 04/04/2025 9:49 AM EDT 04/04/2025 11:39 AM EDT us Kristy Mosley MD LAB BLOOD ORDERAB LES Final Result Performing Organization Address City/[facility] Co de Phone Number [facility] [address] [place] [phone] * (ABNORMAL) Lipid Panel, Standard (04/04/2025 9:49 AM EDT) Triglycerides 126 <150 mg/dL [facility] Comment:Desirable Triglyceri de: less than 150 mg/dLBorderline High Triglyceride 150-199 mg/dLHigh Triglyceride: 200-499 mg/dLVery High Triglyceride: greater than or equal to 5OO mg/dL Cholesterol 161 <200 mg/dL [facility] Comment:Desirable Cholestero l: less than 200 mg/dLBorderline High Cholesterol: 200-239 mg/dLHigh Cholesterol: greater than 239 mg/dL LDL Cholesterol Calculated 105(H) <100 mg/dL [facility] Comment:Desirable LDL: less than 100 mg/dLNear Optimal/Above Optimal LDL: 110- 129 mg/dLBorderline High LDL: 130-159 mg/dLHigh LDL: 160-189 mg/dLVery High LDL: greater than or equal to 190 mg/dL HDL Cholesterol 31(L) >40 mg/dL [facility] Comment:Desirable HDL: great er than 40 mg/dL Note: This HDL assay may give artificially low results in patients with liver disease. Blood Venous blood specimen / Unknown 04/04/2025 9:49 AM EDT 04/04/2025 11:39 AM EDT us Kristy Mosley MD LAB BLOOD ORDERAB LES Final Result [facility] [address] [place] [phone] * (ABNORMAL) Comprehensive Metabolic Panel (04/04/2025 9:49 AM EDT) Only the most recent of2 resultswithin the time period is included. Sodium 143 135 - 145 mmol/L [facility] Potassium 4.5 3.3 - 5.1 mmol/L [facility] Chloride 111(H) 96 - 108 mmol/L [facility] Carbon Dioxide 29 22 - 29 mmol/L [facility] Anion Gap 8(L) 12 - 20 [facility] Urea Nitrogen (BUN) 15 9 - 16 mg/dL [facility] Creatinine, Serum 0.92 0.5 - 1.4 mg/dL [facility] Estimated Glomerular Filt Rate >60 [facility] Comment:Chronic Kidney Disea se: Estimated GFR < 60 mL/min/1.17s0Gdykyd Kidney Disease: Estimated GFR < 15 mL/min/1.73m2 Glucose 89 60 - 115 mg/dL [facility] Calcium 9.1 8.4 - 10.2 mg/dL [facility] Bilirubin, Total 0.4 0.0 - 1.0 mg/dL [facility] Aspartate Amino Transferase 32(H) 5 - 31 U/L [facility] Alanine Aminotransferase 21 0 - 31 U/L [facility] Total Protein 6.5 6.5 - 8.0 g/dL [facility] Albumin Level 4.1 3.5 - 5.0 g/dL [facility] Alkaline Phosphatase 58 39 - 117 U/L [facility] 04/04/2025 9:49 AM EDT 04/04/2025 11:39 AM EDT us Generic External Data Provider LAB BLOOD ORDERAB LES Final Result [facility] [address] [place] [phone] * (ABNORMAL) POCT KAJAL-14 Urine Drug [...] PM EDT . Internal Pass Control Lot# [id number] Exp: 04-08-26 Kristy Mosley MD POINT OF CARE NERY T ENTER/EDIT ORDERABLES Final Result * Albumin, Random Urine W/Creatinine (12/22/2024 9:56 AM EDT) Creatinine, Urine 257.42 mg/dL [facility] Microalbumin Urine 23.0 mg/L [facility] Microalbum Creatinine Ratio Ur 8.9 <30 ug/mg cr [facility] Comment:Albumin/Creatinine R atio Reference Ranges: Normal: < 30 ug/mg creatinine Microalbuminuria: 30 - 300 ug/mg creatinineClinical Albuminuria: > 300 ug/mg creatinine Urine (Urine, Random) 12/22/2024 9:56 AM EDT 12/22/2024 11:08 AM EDT us Kristy Mosley MD LAB URINE ORDERAB LES Final Result Performing Organization Address City/[facility]/ZIP Co de Phone Number [facility] [address] [place] [phone] * Hepatitis C Antibody with Reflex to HCV, RNA, Quantitative, Real-Time PCR (12/22/2024 9:56 AM EDT) Hepatitis C Antibody Nonreactive Nonreactive [facility] Comment:Antibodies to HCV no t detected; does not exclude early acuteHCV infection. Blood Venous blood specimen / Unknown 12/22/2024 9:56 AM EDT 12/22/2024 11:07 AM EDT us Kristy Mosley MD LAB BLOOD ORDERAB LES Final Result [facility] [address] [place] [phone] * HIV-1/2 Antigen and Antibodies, Fourth Generation, with Reflexes (12/22/2024 9:56 AM EDT) HIV AB/AG Nonreactive Nonreactive [facility] Comment:HIV-1 p24 Ag and/or HIV-1/HIV-2 Ab not detected.A test result that is nonreactive does not exclude thepossibility of exposure to or infection with HIV-1 and/orHIV-2. Nonreactive results in this assay for individualswith prior exposure to HIV-1 and/or HIV-2 may be due toantigen and antibody levels that are below the limit ofdetection of this assay.The ki work HIV Ag/Ab Combo assay result andsupplemental assay results should be interpreted inconjunction with the patient's clinical presentation,history and other laboratory results. If the results areinconsistent with clinical evidence, additional testing issuggested to confirm the result. Blood Venous blood specimen / Unknown 12/22/2024 9:56 AM EDT 12/22/2024 11:07 AM EDT us Kristy Mosley MD LAB BLOOD ORDERAB LES Final Result [facility] [address] [place] [phone] [phone] * (ABNORMAL) Hemoglobin A1c (12/22/2024 9:56 AM EDT) Hemoglobin A1c 6.7(H) <6.0 % [facility] Comment:Hemoglobin A1C Refer ence Range Adults: 4.8 - 6.0 % Non diabetic: < 6.0 % Goal: < 7.0 %Additional Action Suggested: > 8.0 %Note: Hemoglobin A1c results are invalid for patients with abnormal amounts of HbF. Blood transfusions may impact the HbA1c concentration in the patient sample. Estimated Average Glucose 146 mg/dL [facility] Comment:eAG = Estimated ave rage glucose which is %A1C expressed asaverage glucose, using the formula of the Y1D-ApaiagcObipnbz Glucose study (ADAG), Diabetes Care, Vol.31,#8,Jan. 2007 Blood Venous blood specimen / Unknown 12/22/2024 9:56 AM EDT 12/22/2024 11:09 AM EDT us Kristy Mosley MD LAB BLOOD ORDERAB LES Final Result Performing Organization Address City/State/[facility] Co de Phone Number [facility] [address] [place] [phone] * BI Mammogram Screening Tomosynthesis Bilateral (12/08/2024 1:55 PM EDT) Anatomical Region Laterality Modality Breast Bilateral Mammography 12/08/2024 1:55 PM EDT Narrative 12/19/2024 9:17 PM EDT [address] [place] [id number] Mammography Report Signed Patient: Krys Gillis MR# : [id number] : 1965 Acct:[id number] Age/Sex: 59 / F ADM Date: 12/08/24 Loc: HO.MAMMO Attending Dr: Kristy Mosley MD Ordering Physician: Kristy Wilder MD Re sults: 1Negative Date of Service: 12/08/24 Follow Up: 1 Year From Orig inal Mammogram Procedure(s): MM tomosynthesis screening BI Accession Number(s): [id number] cc: Kristy Wilder MD EXAMINATION: MM SCREENING [...] signed by Meri Benson DO in OV> 12/19/244 DD/ 1355 TD/TT: 12/08/24 1410 Bakery Demonstrator: Procedure Note Donotuseinterpreter, Image - 12/19/2024 [facility] [address] [place], [place] [address] Mammography Report Signed Patient: Krys GillisMR# : [id number] : 1965Acct:[id number] Age/Sex: 59 / FADM Date: 12/08/24 Loc: HO.MAMMO Attending Dr: Kristy Mosley MD Ordering Physician: Kristy Wilder sults: 1Negative Date of Service: 12/08/24Follow Up: 1 Year From Orig ina Mammogram Procedure(s): MM tomosynthesis screening BI Accession Number(s): [id number] cc: Kristy Wilder MD EXAMINATION: MM SCREENING [...] signed by Meri Benson DO in OV> 12/19/244 DD/ 1355 TD/TT: 12/08/24 1410 Bakery Demonstrator: Kristy Mosley MD IMG BI PROCEDURES Edited Result - Final * Pap Smear (11/01/2020) Pap smear Performed Historical Provider HEALTH MAINTENANCE Final Result * Colonoscopy (11/23/2018) Colonoscopy Performed Historical Provider HEALTH MAINTENANCE Edited Result - Final from Last 3 Months or Most Recently Relevant to Health Maintenance Additional Health Concerns Active Problems Noted Date [...] 04/28/2025 Patient has chronic kidney disease 04/28/2025 Insurance [employer] C3 DENTAL-[facility] MEDICAID STAND ADULT Care Teams Ambulatory Nurse Relationship Specialty Start Date End Date Kristy Wilder MD [address] [place] [phone] PCP - General Internal Medicine 12/26/22 Bradly Gonzalez MD [address] [place] [address] Vascular Surgery 07/17/22 Rk Smith [address] [place], [place] [address] Otolaryngology 01/14/25 Buck Hess DPM [address] [facility] [address] [place] [address] Podiatry 01/14/25 Rosanne Mosley 03/28/25 Evita Hanna Lens PolisherCpo 11/04/24 [facility] C[facility] [address] [place] [phone] Physical Therapy 07/17/22
--- OUTSIDE RECORDS SUMMARY | 2025-04-28 19:02 | XMS_ITS | Encounter Summary ---
Author Organization [employer] Address [address] [facility] [address] [place] [address] Care Team Providers Care Mechanical Sound Technician Name Role Phone Khloe Fonseca RESIST COATER DEVELOPER Primary Care Provider Kristy Ring MD Primary Care Pro vider Bradly Gonzalez MD Unavailable Rk Smith Unavailable Buck Hess DPM Unavailable [phone] Rosanne Mosley Unavailable Reason for Visit * Reason Onset Date Comments OTHER 12/24/2022 Encounter Details Date Type Department Care Team (Late st Contact Info) Description 12/24/2022 Telephone [facility] MED[facility]INE [address] [place] [phone] Khloe Fonseca FNP OTHER Social History Tobacco [...] To clarify, please contact pt sister at [phone] documented in this encounter Plan of Treatment Upcoming Encounters Date Type Department Care Team (Late st Contact Info) Description 05/10/2025 1:30 PM EST Clinical Support [facility] MEDICINE [address] [place] [address] 05/11/2025 2:30 PM EST Office Visit [facility] ADULT DENTAL [address] [place] [address] Bryson Hobson DMD [address] [place] [address] 05/11/2025 3:00 PM EST Office Visit [facility] ADULT DENTAL [address] [place] [address] Talha Herrera 05/16/2025 2:00 PM EST Telemedicine [facility] MED [facility] PED[facility] [address] [place] [address] Colette Diop RN [address] [place] [address] 05/20/2025 3:00 PM EST Office Visit [facility] ADULT DENTAL [address] [place] [address] Talha Herrera 06/15/2025 1:00 PM EST Office Visit [facility] ADULT DENTAL [address] [place] [address] Zi Lozano, DDS [address] [place] [address] documented as of this encounter Visit Diagnoses Not on filedocumented in this encounter Additional Health Concerns Assessment Noted Time PHQ-9 Depression Total Score: 11 022 1:16 PM EST documented as of this encounter Care Teams Mechanical Sound Technician Relationship Specialty Start Date End Date Khloe Fonseca FNP PCP - General Family Medicine 02/05/22 12/25/22 Kristy Wilder MD [address] [place] [address] PCP - General Internal Medicine 12/26/22 Bradly Gonzalez MD [address] [place] [address] Vascular Surgery 07/17/22 Rk Smith [address] [place], [place] [address] Otolaryngology 01/14/25 Buck Hess DPM [address] [place] [address] [address] [place] [address] Podiatry 01/14/25 Rosanne Mosley 03/28/25 Evita Hanna Editor Managing NewspaperCourt Advocate 11/04/24 [facility] CORE [address] [place] [phone] Physical Therapy 07/17/22 documented as of this encounter
--- OUTSIDE RECORDS SUMMARY | 2025-04-30 19:00 | XMS_ITS | Clinical Summary ---
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 Care Android Platform Developer Name Role Phone ANDREINA MENCHACA, CLARENCE Unavailable Unavailable TATI NARVAEZ, ALBERTA Unavailable Unavailable Payers Payer Name Policy Type Policy Number Effective Date Expira tion Date MEDICAID [facility] [id number] Problems Condition Name Condition Details Condition Category [...] 06-25 00:00: 00 09-01 23:59 :00 No [id number] 5 mg BEDTIME 5 mg BEDTIME (route: oral) Med Classific ation: Central Nervous System Agents buspirone 7.5 mg tablet 06-25 00:00: 00 09-01 23:59 :00 No [id number] 7.5 mg 2 TIMES DAILY 7.5 mg 2 TIMES DAILY (route: oral) Med Classific ation: Central Nervous System Agents Eliquis 5 mg tablet 06-25 00:00: 00 09-01 23:59 :00 No [id number] 5 mg 2 TIMES DAILY 5 mg 2 TIMES DAILY (route: oral) Med Classific ation: Hematolog ical Agents famotidine 20 mg tablet 06-25 00:00: 00 09-01 23:59 :00 No [id number] 20 mg 2 TIMES DAILY 20 mg 2 TIMES DAILY (route: oral) Med Classific ation: Gastroint estinal Therapy Agents levothyroxi ne 112 mcg tablet 06-25 00:00: 00 09-01 23:59 :00 No [id number] 112 mcg EVERY AM 112 mcg EVERY AM (route: oral) Med Classific ation: Endocrine losartan 25 mg tablet 06-25 00:00: 00 09-01 23:59 :00 No [id number] 25 mg NOON 25 mg NOON (route: oral) Med Classific ation: Cardiovas cular Therapy Agents metformin 500 mg tablet 06-25 00:00: 00 09-01 23:59 :00 No [id number] 500 mg DIRECTED 500 mg DIRECTED (route: oral) Med Classific ation: Endocrine mirtazapine 7.5 mg tablet 06-25 00:00: 00 09-01 23:59 :00 No [id number] 7.5 mg BEDTIME 7.5 mg BEDTIME (route: oral) Med Classific ation: Central Nervous System Agents Narcan 4 mg/actuatio n nasal spray 06-25 00:00: 00 09-01 23:59 :00 No [id number] 2 spray DIRECTED 2 spray DIRECTED (route: nasal) Med Classific ation: Antidotes and other Reversal Agents ondansetron 4 mg disintegrat ing tablet 06-25 00:00: 00 09-01 23:59 :00 No [id number] 4 mg EVERY 8 HOURS 4 mg EVERY 8 HOURS (route: oral) Med Classific ation: Gastroint estinal Therapy Agents oxycodone 5 mg tablet 06-25 00:00: 00 09-01 23:59 :00 No [id number] 5 mg EVERY 12 HOURS 5 mg EVERY 12 HOURS (route: oral) Med Classific ation: Analgesic , Anti-infl ammatory or Antipyret ic propranolol 10 mg tablet 06-25 00:00: 00 09-01 23:59 :00 No [id number] 17 mg 2 TIMES DAILY 17 mg 2 TIMES DAILY (route: oral) Med Classific ation: Cardiovas cular Therapy Agents sertraline 100 mg tablet 06-25 00:00: 00 09-01 23:59 :00 No [id number] 100 mg NOON 100 mg NOON (route: oral) Med Classific ation: Central Nervous System Agents buspirone 10 mg tablet 09-05 00:00: 00 04-08 23:59 :00 No [id number] 1 tablet 2 TIMES DAILY 1 tablet 2 TIMES DAILY (route: oral) Med Classific ation: Central Nervous System Agents Colace 100 mg capsule 09-04 00:00: 00 04-08 23:59 :00 No [id number] 1 capsule BEDTIME 1 capsule BEDTIME (route: oral) Med Classific ation: Gastroint estinal Therapy Agents Eliquis 5 mg tablet 09-04 00:00: 00 04-08 23:59 :00 No [id number] 1 tablet 2 TIMES DAILY 1 tablet 2 TIMES DAILY (route: oral) Med Classific ation: Hematolog ical Agents levothyroxi ne 112 mcg tablet 09-04 00:00: 00 04-08 23:59 :00 No [id number] 1 tablet EVERY AM 1 tablet EVERY AM (route: oral) Med Classific ation: Endocrine losartan 25 mg tablet 09-04 00:00: 00 04-08 23:59 :00 No [id number] 1 tablet NOON 1 tablet NOON (route: oral) Med Classific ation: Cardiovas cular Therapy Agents metformin 500 mg tablet 09-04 00:00: 00 04-08 23:59 :00 No [id number] 1 tablet EVERY AM 1 tablet EVERY AM (route: oral) Med Classific ation: Endocrine metformin 500 mg tablet 09-05 00:00: 00 04-08 23:59 :00 No [id number] 2 tablet EVERY PM 2 tablet EVERY PM (route: oral) Med Classific ation: Endocrine Pepcid 20 mg tablet 09-04 00:00: 00 04-08 23:59 :00 No [id number] 1 tablet 2 TIMES DAILY 1 tablet 2 TIMES DAILY (route: oral) Med Classific ation: Gastroint estinal Therapy Agents propranolol 10 mg tablet 09-04 00:00: 00 04-08 23:59 :00 No [id number] 1 tablet 2 TIMES DAILY 1 tablet 2 TIMES DAILY (route: oral) Med Classific ation: Cardiovas cular Therapy Agents sertraline 100 mg tablet 09-04 00:00: 00 04-08 23:59 :00 No [id number] 1 tablet NOON 1 tablet NOON (route: oral) Med Classific ation: Central Nervous System Agents mirtazapine 45 mg tablet 09-04 00:00: 00 04-08 23:59 :00 No [id number] 1 tablet BEDTIME 1 tablet BEDTIME (route: oral) Med Classific ation: Central Nervous System Agents hydroxyzine HCl 10 mg tablet 09-04 00:00: 00 04-08 23:59 :00 No [id number] 1-2 tablet 2 TIMES DAILY 1-2 tablet 2 TIMES DAILY (route: oral) Med Classific ation: Central Nervous System Agents buspirone 10 mg tablet 2024-06 00:00: 00 Yes [id number] 10 mg 2 TIMES DAILY 10 mg 2 TIMES DAILY (route: oral) Med Classific ation: Central Nervous System Agents Colace 100 mg capsule 2024-06 00:00: 00 Yes [id number] 100 mg BEDTIME 100 mg BEDTIME (route: oral) Med Classific ation: Gastroint estinal Therapy Agents Eliquis 5 mg tablet 2024-06 00:00: 00 Yes [id number] 5 mg 2 TIMES DAILY 5 mg 2 TIMES DAILY (route: oral) Med Classific ation: Hematolog ical Agents hydroxyzine HCl 10 mg tablet 2024-06 00:00: 00 Yes [id number] 10 mg 2 TIMES DAILY 10 mg 2 TIMES DAILY (route: oral) Med Classific ation: Central Nervous System Agents levothyroxi ne 112 mcg tablet 2024-06 00:00: 00 Yes [id number] 112 mcg EVERY AM 112 mcg EVERY AM (route: oral) Med Classific ation: Endocrine losartan 25 mg tablet 2024-06 00:00: 00 Yes [id number] 25 mg NOON 25 mg NOO N (route: oral) Med Classific ation: Cardiovas cular Therapy Agents metformin 500 mg tablet 2024-06 00:00: 00 Yes [id number] 500 mg EVERY AM 500 mg EVERY AM (route: oral) Med Classific ation: Endocrine metformin 500 mg tablet 2024-06 00:00: 00 Yes [id number] 500 mg EVERY PM 500 mg EVERY PM (route: oral) Med Classific ation: Endocrine mirtazapine 45 mg tablet 2024-06 00:00: 00 Yes [id number] 45 mg BEDTIME 45 mg BEDTIME (route: oral) Med Classific ation: Central Nervous System Agents Pepcid 20 mg tablet 2024-06 00:00: 00 Yes [id number] 20 mg 2 TIMES DAILY 20 mg 2 TIMES DAILY (route: oral) Med Classific ation: Gastroint estinal Therapy Agents propranolol 10 mg tablet 2024-06 00:00: 00 Yes [id number] 10 mg 2 TIMES DAILY 10 mg 2 TIMES DAILY (route: oral) Med Classific ation: Cardiovas cular Therapy Agents sertraline 100 mg tablet 2024-06 00:00: 00 Yes [id number] 100 mg NOON 100 mg NOON (route: oral) Med Classific ation: Central Nervous System Agents Vital Signs Vital Name Observation Time Observation Value Commen ts Temperature 2025-04-20 16:52:00.000 96.9 [degF] Temperature 2025-04-16 12:02:00.000 97.5 [degF] Temperature 2025-04-13 15:21:00.000 97.2 [degF] Temperature 2025-04-09 13:30:00.000 97.2 [degF] Temperature 2025-04-02 14:09:00.000 97.3 [degF] Temperature 2025-03-21 16:30:00.000 96.8 [degF] Temperature 2025-03-14 17:28:00.000 96.7 [degF] Temperature 2025-03-09 15:51:00.000 97.2 [degF] Pulse 2025-04-20 16:52:00.000 78 /min Pulse 2025-04-16 12:02:00.000 62 /min Pulse 2025-04-13 15:21:00.000 70 /min Pulse 2025-04-09 13:30:00.000 76 /min Pulse 2025-04-02 14:09:00.000 88 /min Pulse 2025-03-21 16:30:00.000 80 /min Pulse 2025-03-14 17:31:00.000 70 /min Pulse 2025-03-09 15:51:00.000 68 /min O2 Saturation (%) 2025-04-20 16:52:00.000 98 % O2 Saturation (%) 2025-04-16 12:02:00.000 97 % O2 Saturation (%) 2025-04-13 15:21:00.000 98 % O2 Saturation (%) 2025-04-09 13:30:00.000 99 % O2 Saturation (%) 2025-04-02 14:09:00.000 97 % O2 Saturation (%) 2025-03-21 16:30:00.000 98 % O2 Saturation (%) 2025-03-14 17:31:00.000 96 % O2 Saturation (%) 2025-03-09 15:51:00.000 98 % Respirations 2025-04-20 16:52:00.000 16 /min Respirations 2025-04-16 12:02:00.000 16 /min Respirations 2025-04-13 15:21:00.000 16 /min Respirations 2025-04-09 13:30:00.000 17 /min Respirations 2025-04-02 14:09:00.000 16 /min Respirations 2025-03-21 16:30:00.000 16 /min Respirations 2025-03-14 17:28:00.000 16 /min Respirations 2025-03-09 15:51:00.000 16 /min Systolic Blood Pressure 2025-04-20 16:52:00.000 113 mm [Hg] Systolic Blood Pressure 2025-04-16 12:02:00.000 126 mm [Hg] Systolic Blood Pressure 2025-04-13 15:21:00.000 110 mm [Hg] Systolic Blood Pressure 2025-04-09 13:30:00.000 138 mm [Hg] Systolic Blood Pressure 2025-04-02 14:09:00.000 109 mm [Hg] Systolic Blood Pressure 2025-03-21 16:30:00.000 132 mm [Hg] Systolic Blood Pressure 2025-03-14 17:28:00.000 98 mm[ Hg] Systolic Blood Pressure 2025-03-09 15:51:00.000 114 mm [Hg] Diastolic Blood Pressure 2025-04-20 16:52:00.000 69 mm [Hg] Diastolic Blood Pressure 2025-04-16 12:02:00.000 69 mm [Hg] Diastolic Blood Pressure 2025-04-13 15:21:00.000 64 mm [Hg] Diastolic Blood Pressure 2025-04-09 13:30:00.000 74 mm [Hg] Diastolic Blood Pressure 2025-04-02 14:09:00.000 74 mm [Hg] Diastolic Blood Pressure 2025-03-21 16:30:00.000 84 mm [Hg] Diastolic Blood Pressure 2025-03-14 17:28:00.000 68 mm [Hg] Diastolic Blood Pressure 2025-03-09 15:51:00.000 77 mm [Hg] Plan of Treatment Planned Activity [...] PRE-POUR MEDICATION PER MEDICATION LIST 3 X WEEK. [code = SKILLED NURSE TO PRE-POUR MEDICATION PER MEDICATION LIST 3 X WEEK.] Future Scheduled Test PATIENT MA Y HAVE [...] OF PATIENTS MENTAL/BEHAVIORAL STATUS, ASSESS VITAL SIGNS 3 X WEEK, ALLOW 2 PRNS FOR MEDICATION MANAGEMENT. [code = SKILLED NURSE TO O/A OF PATIENTS MENTAL/BEHAVIORAL STATUS, ASSESS VITAL SIGNS 3 X WEEK, ALLOW 2 PRNS FOR MEDICATION MANAGEMENT.] Future Scheduled Test SKILLED NU RSE FOR O/A OF GENERAL HEALTH STATUS OF PAIN, CARDIAC, RESPIRATORY, GASTROINTESTINAL, GENITOURINARY, SKIN, NEUROLOGIC, ENDOCRINE SYSTEMS TO IDENTIFY CHANGES ASSOCIATED WITH EXACERBATION FOR EARLY INTERVENTION OF COMPLICATIONS 3 X WEEK. [code = SKILLED NURSE FOR O/A OF GENERAL HEALTH STATUS OF PAIN, CARDIAC, RESPIRATORY, GASTROINTESTINAL, GENITOURINARY, SKIN, NEUROLOGIC, ENDOCRINE SYSTEMS TO IDENTIFY CHANGES ASSOCIATED WITH EXACERBATION FOR EARLY INTERVENTION OF COMPLICATIONS 3 X WEEK.] Future Scheduled Test SKILLED NU RSE FOR [...] INTERVENTION.] Future Scheduled Test SKILLED NU RSE TO PERFORM HOME SAFETY AND FALL ASSESSMENT AND PROVIDE INSTRUCTION TO IMPLEMENT HOME SAFETY AND FALL PREVENTION STRATEGIES. [code = SKILLED NURSE TO PERFORM HOME SAFETY AND FALL ASSESSMENT AND PROVIDE INSTRUCTION TO IMPLEMENT HOME SAFETY AND FALL PREVENTION STRATEGIES.] Future Scheduled Test SKILLED NU RSE FOR OBSERVATION AND ASSESSMENT OF PATIENT S PAIN LEVEL AND EFFECTIVENESS OF PAIN MANAGEMENT REGIMEN. SKILLED NURSE TO INSTRUCT PATIENT/CAREGIVER REGARDING PHARMACOLOGIC AND NON-PHARMACOLOGIC PAIN CONTROL MEASURES. SKILLED NURSE TO REPORT TO PHYSICIAN IF PAIN IS UNCONTROLLED WITH CURRENT PAIN MANAGEMENT REGIMEN. [code = SKILLED NURSE FOR OBSERVATION AND ASSESSMENT OF PATIENT S PAIN LEVEL AND EFFECTIVENESS OF PAIN MANAGEMENT [...] PROBLEMS.] Future Scheduled Test SKILLED NU RSE FOR O/A OF CLIENT'S CURRENT GRIEVING STATUS AND PROVIDE KNOWLEDGE AND SUPPORT FOR IMPROVED COPING WITH GRIEF [code = SKILLED NURSE FOR O/A OF CLIENT'S CURRENT GRIEVING STATUS AND PROVIDE KNOWLEDGE AND SUPPORT FOR IMPROVED COPING WITH GRIEF] Future Scheduled Test SKILLED NU RSE TO ASSESS PATIENT S PSYCHOSOCIAL STATUS TO IDENTIFY POTENTIAL ISSUES THAT MAY COMPLICATE THE PROVISION OF THE PLAN OF CARE INCLUDING THE PATIENT S ABILITY TO ACCESS COMMUNITY RESOURCES AND PSYCHOSOCIAL SUPPORT SERVICES. [code = SKILLED NURSE TO ASSESS PATIENT S PSYCHOSOCIAL STATUS TO IDENTIFY POTENTIAL ISSUES THAT MAY COMPLICATE THE PROVISION OF THE PLAN OF CARE INCLUDING THE PATIENT S ABILITY TO ACCESS COMMUNITY RESOURCES AND PSYCHOSOCIAL SUPPORT SERVICES.] Future Scheduled Test SKILLED NU RSE WILL MAINTAIN SITUATIONAL AWARENESS FOR SAFETY AND WILL NOTIFY CLINICAL MONOTYPE KEYBOARD OPERATOR AND PHYSICIAN/PROVIDER WITH ANY CHANGE IN CONDITION. [code = SKILLED NURSE WILL MAINTAIN SITUATIONAL AWARENESS FOR SAFETY AND WILL NOTIFY CLINICAL MONOTYPE KEYBOARD OPERATOR AND PHYSICIAN/PROVIDER WITH ANY CHANGE IN CONDITION.] Goal 2024-12-31 Patient Goal - TO SLEEP BETT ER Goal 2024-10-29 Patient Goal - TO SLEEP BETT ER Goal 2025-02-28 Patient Goal - TO SLEEP BETT ER Goal Patient Goal - TO SLEEP BETT ER Goal Provider Goal - A PLAN OF CARE WILL BE ESTABLISHED THAT MEETS PATIENT'S GROUP HOME NEEDS AND INCLUDES PATIENT GOAL FOR [...] PAIN INTERFERING WITH ACTIVITY EVIDENCED BY PAIN AT A LEVEL THAT IS ACCEPTABLE TO THE PATIENT AND PAIN LEVEL WITHIN ESTABLISHED PARAMETERS BY END OF CERTIFICATION PERIOD. Goal Provider Goal - PATIENT WILL HAVE SUPPORT MEASURES ESTABLISHED TO PREVENT HOSPITALIZATION AND ED USE AND PATIENT/CAREGIVER WILL VERBALIZE/DEMONSTRATE METHODS TO REDUCE AVOIDABLE HOSPITALIZATION AND ED USE BY END OF EPISODE. Goal Provider Goal - PATIENT/CAREGIVER WILL VERBALIZE UNDERSTANDING OF EDUCATION PROVIDED ON MEDICATIONS BY THE END OF THE CERTIFICATION PERIOD. Goal Provider Goal - PATIENT WILL VERBALIZE STAGES OF GRIEF AND ACCEPTANCE OF OWN GRIEVING PROCESSES BY THE SIXTH THERAPEUTIC VISIT. Goal Provider Goal - PSYCHOSOCIAL NEEDS WILL BE IDENTIFIED AND PLAN IMPLEMENTED TO MINIMIZE RISK THROUGHOUT CERTIFICATION PERIOD. Goal Provider Goal - PATIENT WILL REMAIN SAFE IN THE COMMUNITY AND WILL BE FREE OF DANGER TO SELF AND OTHERS THROUGHOUT THE CERTIFICATION PERIOD. Encounters Start Date/Time End Date/Time Encounter Type Admission Type Attending [facility] Care Facility Care Department Encounter ID Discharge Date Discharge Status Discharge Condition Discharge Reason Percent Goals Met 2025-03-03 00:00:00 2025-05-01 00:00:00 Outpatient RECERTIFIC ATION ALBERTA DUFFY [facility] [id number] 0.00
== END 2025-04-28 14:27 | disposition home or self-care (01) ==
LOC: HO.HVS 13:37
PROVIDERS: PCP Student in an Organized Health Care Education/Training Program; Visit Provider Surgery Vascular Surgery
DX: I83.11 Varicose veins of right lower extremity with inflammation (principal)
CPT/HCPCS: 99213

== ENCOUNTER → 2025-04-28 13:36 | Outpatient (BNVA) | payer MEDICAID, SELFPAY | PROVIDERS: PCP Student in an Organized Health Care Education/Training Program; Visit Provider Surgery Vascular Surgery | DX: I83.11 Varicose veins of right lower extremity with inflammation (principal) | CPT/HCPCS: 99212 ==

== ENCOUNTER 2025-05-19 13:31 | Outpatient (REF) | payer MEDICAID, SELFPAY ==
--- NOTE | ~2025-05-19 | CT_ITS ---
EXAMINATION: CT CHEST WITH CONTRAST CLINICAL INFORMATION: 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 Axial MIP volume rendering provided. Sagittal and coronal reformatted images were obtained. This CT examination was performed using dose optimization techniques as appropriate, variously including the following: *Automated exposure control *Adjustment of mA and/or kV according to patient size (this includes techniques or standardized protocols for targeted exams where dose is matched to indication/reason for exam; i.e. extremities or head) *Use of iterative reconstruction technique FINDINGS: END FINDER FORMING DEPARTMENT: Left chest Port-A-Cath in place LUNGS: Central airways are patent. No lung consolidation. Multiple pulmonary nodules as follows: -Right lower lobe subpleural 0.1 cm (4:169/546), unchanged from August 2024 -Right upper lobe 0.2 cm (4:179/546), unchanged from August 2024 -Right lower lobe 0.2 cm (4:200/546), unchanged from August 2024 -Right lower lobe 0.2 cm (4:215/546), larger than August 2024 -Right lower lobe 0.2 cm (4:256/546), new from December 2024 -Right middle lobe 0.2 cm (4:259/546), unchanged from August 2024 -Left lower lobe 0.3 cm (4:281/546), larger than August 2024 -Left lower lobe 0.5 cm (4:297/546), smaller than August 2024, but larger than December 2024 -Right lower lobe 0.3 cm (4:210/546), unchanged from August 2024 -Right lower lobe 0.3 cm (4:321/546), new from December 2024 Note that some of the nodules were not well seen in December 2024 due to differences in available slice thickness and respiratory motion. MEDIASTINUM: Heart is normal in size. No pericardial effusion. No coronary artery calcifications. Thoracic aorta is normal in caliber, associated with mild atherosclerotic disease with calcifications. PLEURA: No pneumothorax. No pleural effusion. LYMPH NODES: No lymphadenopathy. UPPER ABDOMEN: Postsurgical changes from right nephrectomy. OSSEOUS STRUCTURES: No acute or suspicious osseous abnormality. CT/CT chest w IV con IMPRESSION: Multiple pulmonary nodules, the largest measuring 0.5 cm, some of them new and some enlarging compared to the prior studies. Some of these nodules were not well seen on the most recent study in December 2024, probably due to above explanation. Electronically signed by: London Zamora MD 05/19/2025 03:17 PM [facility]
[2025-05-19] MEDS: iohexoL 350 MG/ML 100 ML INFUS..BTL 65 ML IV (14:27)
[2025-05-20 08:53] LABS: Creatinine POC 0.8 mg/dL (0.5-1.4); GFR POC > 60
== END 2025-05-19 13:32 | disposition home or self-care (01) ==
LOC: HO.CT 13:31
PROVIDERS: PCP Student in an Organized Health Care Education/Training Program; Visit Provider Internal Medicine Medical Oncology
DX: C64.9 Malignant neoplasm of unspecified kidney, except renal pelvis (principal)
CPT/HCPCS: 71260; 82565; Q9967

== ENCOUNTER → 2025-05-19 13:35 | Outpatient (BNV) | payer MEDICAID, SELFPAY | PROVIDERS: PCP Student in an Organized Health Care Education/Training Program; Visit Provider Radiology Body Imaging | DX: R91.8 Other nonspecific abnormal finding of lung field (principal); C64.9 Malignant neoplasm of unspecified kidney, except renal pelvis | CPT/HCPCS: 71260 ==

== ENCOUNTER 2025-05-25 12:46 | Outpatient (AMB) | payer MEDICAID, SELFPAY ==
--- OUTSIDE RECORDS SUMMARY | 2025-05-20 15:00 | XMS_ITS | Encounter Summary ---
Author Organization [employer] Address [address] [place] [address] Care Team Providers Care Sash Clamp Operator Name Role Phone Kristy Wilder MD Primary Care Pro vider Bradly Gonzalez MD Unavailable Rk Smith Unavailable Buck Hess DPM Unavailable [phone] Reason for Visit * Reason Comments Scaling And Root Planing Encounter Details Date Type Department Care Team ([facility] Contact Info) Description 05/20/2025 3:00 PM EST Office Visit [facility] [address] [place] [address] Talha Herrera Dental calculus (Primary Dx) Social History Tobacco Use Types [...] AM EDT documented as of this encounter Last Filed Vital Signs Vital Sign Reading Time Taken Comments Blood Pressure 132/74 05/20/2025 2:52 PM EST Pulse 75 05/20/2025 2:52 PM EST Temperature - - Respiratory Rate - - Oxygen Saturation - - Inhaled Oxygen Concentration - - Weight - - Height - - Body Mass Index - - documented in this encounter Progress Notes * Talha Herrera - 05/20/2025 3:00 PM EST Patient ID: Krys Travis is a 60 y.o. female. Time Out: Timeout Date: 05/20/25, Timeout Time: 1453 Location: [facility] Tooth: UL and LL Procedure: Scaling and Root Planing Verified the above with patient, public services assistant, and provider. Confirmed via patient's chart, intraorally and by radiographs. Recycling Attendant: not applicable Medical Hx: Vitals: Blood pressure 132/74, pulse 75. Medications, Med Hx reviewed with patient and updated in chart. Treatment Provided Dental procedures in this visit D4341 - PERIODONTAL SCALING AND ROOT PLANING - 4 OR MORE TEETH PER QUADRANT UL (Completed) Service provider: Talha Herrera Billing provider: Ene Cummings DDS D4341 - PERIODONTAL SCALING AND ROOT PLANING - 4 OR MORE TEETH PER QUADRANT LL (Completed) Service provider: Talha Herrera Billing provider: Ene Cummings DDS D1100 - ORAL HYGIENE INSTRUCTIONS (Completed) Service provider: Talha Herrera Billing provider: Ene Cummings DDS D9450 - CASE PRESENTATION, DETAILED AND EXTENSIVE TREATMENT PLANNING (Completed) Service provider: Talha Herrera Billing provider: Ene Cummings DDS Topical: 20% Benzocaine Confirmed profound anesthesia. Oral Cancer Screening: No lesions Head/Neck Exam: No Lesions Instruments Used: Ultrasonic Scalers and Hand Scalers Fluoride: N/A Calculus: Moderate and Localized Plaque: Light and Generalized Stain: Light and Generalized Bleeding: Light and Generalized Gingiva: Bleeding on probing OH: Fair Oral hygiene instructions provided to patient including brushing technique and flossing. Recommendations: [place] two times daily, modified laguerre technique, Floss daily Recall Frequency: 6 mo NV: iván Hygienist: Talha Herrera RDH documented in this encounter Plan of Treatment Upcoming Encounters Date Type Department Care Team (Late st Contact Info) Description 06/15/2025 1:00 PM EST Office Visit [facility] [address] [place] [address] Zi Lozano DDS [address] [place] [address] 08/15/2025 2:00 PM EDT Telemedicine [facility] [address] [place] [address] Colette Diop, BRICE [address] [place] [address] documented as of this encounter Goals Goal [...] Plan Patient has chronic kidney disease No [place], RN Weekly blood pressure task Care Plan [...] chronic kidney disease No Lozano, Zi, DDS Weekly blood pressure task Care Plan Weekly blood pressure task No Paul, Yvonne, OD Weekly blood pressure task Care Plan Weekly blood pressure task No Paul, Yvonne, OD Patient has chronic kidney disease Care Plan Patient has chronic kidney disease No Paul Yvonne, OD Patient has chronic kidney disease Care Plan Patient has chronic kidney disease No Paul, Yvonne, OD Weekly blood pressure task Care Plan Weekly blood pressure task No Rosanne Mosley Weekly blood pressure task Care Plan Weekly blood pressure task No Rosanne Mosley Patient has chronic kidney disease Care Plan Patient has chronic kidney disease No Rosanne Mosley Patient has chronic kidney disease Care Plan Patient has chronic kidney disease No Rosanne Mosley Weekly blood pressure task Care Plan Weekly blood pressure task No Talha Herrera Weekly blood pressure task Care Plan Weekly blood pressure task No Talha Herrera Patient has chronic kidney disease Care Plan Patient has chronic kidney disease No Talha Herrera Patient has chronic kidney disease Care Plan Patient has chronic kidney disease No Talha Herrera Weekly blood pressure task Care Plan Weekly blood pressure task No Johanna De Leon Weekly blood pressure task Care Plan Weekly blood pressure task No Johanna De Leon Patient has chronic kidney disease Care Plan Patient has chronic kidney disease No Johanna De Leon Patient has chronic kidney disease Care Plan Patient has chronic kidney disease No Johanna De Leon Weekly blood pressure task Care Plan Weekly blood pressure task No Lozano, Zi, DDS Weekly blood pressure task Care Plan Weekly blood pressure task No Lozano, Zi, DDS Patient has chronic kidney disease Care Plan Patient has chronic kidney disease No Zi Lozano DDS Patient has chronic kidney disease Care Plan Patient has chronic kidney disease No Zi Lozano DDS Weekly blood pressure task Care Plan Weekly blood pressure task No Colette Diop RN Weekly blood pressure task Care Plan Weekly blood pressure task No Colette Diop RN Patient has chronic kidney disease Care Plan Patient has chronic kidney disease No Colette Diop RN Patient has chronic kidney disease Care Plan Patient has chronic kidney disease No Colette Diop RN Weekly blood pressure task Care Plan Weekly blood pressure task No Talha Herrera Weekly blood pressure task Care Plan Weekly blood pressure task No Talha Herrera Patient has chronic kidney disease Care Plan Patient has chronic kidney disease No Talha Herrera Patient has chronic kidney disease Care Plan Patient has chronic kidney disease No Talha Herrera documented as of this encounter Procedures Procedure Name Priority Date/Time Associated Diagnosis Comments LL PERIODONTAL SCALING AND ROOT PLANING - 4 OR MORE TEETH PER QUADRANT Routine 05/20/2025 3:00 PM EST UL PERIODONTAL SCALING AND ROOT PLANING - 4 OR MORE TEETH PER QUADRANT Routine 05/20/2025 3:00 PM EST ORAL HYGIENE INSTRUCTIONS Routine 2024 3:00 PM EST CASE PRESENTATION, DETAILED AND EXTENSIVE TREATMENT PLANNING Routine 05/20/2025 3:00 PM EST documented in this encounter Visit Diagnoses Diagnosis Dental calculus- Primary Accretions on teeth documented in this encounter Additional Health Concerns Active [...] 04/28/2025 Patient has chronic kidney disease 04/28/2025 Weekly blood pressure task 04/29/2025 Weekly blood pressure task 04/29/2025 Patient has chronic kidney disease 04/29/2025 Patient has chronic kidney disease 04/29/2025 Weekly blood pressure task 05/02/2025 Weekly blood pressure task 05/02/2025 Patient has chronic kidney disease 05/02/2025 Patient has chronic kidney disease 05/02/2025 Weekly blood pressure task 05/10/2025 Weekly blood pressure task 05/10/2025 Patient has chronic kidney disease 05/10/2025 Patient has chronic kidney disease 05/10/2025 Weekly blood pressure task 05/11/2025 Weekly blood pressure task 05/11/2025 Patient has chronic kidney disease 05/11/2025 Patient has chronic kidney disease 05/11/2025 Weekly blood pressure task 05/11/2025 Weekly blood pressure task 05/11/2025 Patient has chronic kidney disease 05/11/2025 Patient has chronic kidney disease 05/11/2025 Weekly blood pressure task 05/16/2025 Weekly blood pressure task 05/16/2025 Patient has chronic kidney disease 05/16/2025 Patient has chronic kidney disease 05/16/2025 Weekly blood pressure task 05/20/2025 Weekly blood pressure task 05/20/2025 Patient has chronic kidney disease 05/20/2025 Patient has chronic kidney disease 05/20/2025 Assessment Noted Time PHQ-9 Depression Total Score: 14 03/08/ 025 11:30 AM EDT documented as of this encounter Care Teams Sash Clamp Operator Relationship Specialty Start Date End Date Kristy Wilder MD [address] [place] [address] PCP - General Internal Medicine 12/26/22 Bradly Gonzalez MD [address] [place] [address] Vascular Surgery 07/17/22 Rk Smith [address] [facility] [address] [place] [address] Otolaryngology 01/14/25 Buck Hess DPM [address] [address] Podiatry 01/14/25 Evita Hanna Telephone Answering Service OperatorHay Sorter 11/04/24 [facility] [address] [place] [id number] Physical Therapy 07/17/22 documented as of this encounter
--- NOTE | 2025-05-25 12:53 | MHC.OFFVIS ---
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 Pan Salt Required: Yes Mixer Operator Vacuum Pan Salt Services: Mixer Operator Vacuum Pan Salt Present Mixer Operator Vacuum Pan Salt Name: lisa id #[id number] Information Interpreted: non-clinical & clinical Hospitalist Physician: Hospitalist Physician offered & declined Allergies phenylephrine (From CONTAC-D COLD (PE)) Allergy (Unknown, Verified 04/28/25 13:47) EDEMA morphine Allergy (Verified 04/28/25 13:47) Rash Contac-D Allergy (Unknown, Uncoded 04/15/25 08:55) Unknown Post menopausal: Yes Patient : No HPI Comments Details: Pt is informed of [place] for clinical documentation and agrees to its use during the visit The patient is a 60 year old female presenting for an annual gynecological examination and evaluation of vulvar lesions/ black dts on the labia. She had a recent breast exam and mammogram which were normal and declines a clinical breast exam at this visit. The patient has a history of pulmonary nodules, with a recent chest CT on May 19 showing multiple nodules, some of which are smaller, some larger, and one new nodule. She also has a history of kidney cancer and has an upcoming appointment with her oncologist, , on the to review these findings. The patient's past medical history is significant for hyperlipidemia, migraines, hypothyroidism, and diabetes/prediabetes, for which she takes multiple medications. She also takes Eliquis, and medications for depression and sleep. She has known allergies to morphine and phenylephrine (Contact D). Her surgical history is notable for a hysterectomy performed a long time ago for an enlarged uterus, which was preceded by two D&C procedures in [place]. She has had four children, all delivered via section, and underwent a tubal ligation after her third child, which subsequently failed, leading to 4th /4th Her father is and had a history of cardiac disease and hypertension. The patient is currently incapacitated and not working. she is not currenty sexually active and declines any STI screening [facility] Medical History Chronic allergic rhinitis Pulmonary nodules Right renal mass Anxiety Depression Clear cell carcinoma of right kidney Surgical History Hx of colonoscopy History of esophagogastroduodenoscopy (EGD) S/P skin biopsy Status post hysterectomy Family History Maternal Uncle Stomach cancer Maternal Aunt Stomach cancer Paternal Aunt Colon cancer Sister Liver cancer Sister Skin cancer Father Hypertension Mother No problems noted. Social History Household Members: None Housing: Apartment Are you a primary healthcare management to a significant other at home: No Do you presently have visiting nurse or other home services: Yes Alcohol intake: former Patient Tobacco Use Status: Never used Tobacco Patient : No service: No Current occupational status: unemployed Sexual orientation: Straight/Heterosexual Female Reproductive History Menstrual Age of Menarche: 14 Date of last menstrual period: 06/03/23 Menopause type: natural Total pregnancies: 4 Full term: 4 Number of Living Children: 4 Date of last pap smear: 05/09/20 History of abnormal pap smear: No Date of Mammogram: 12/08/24 History of abnormal mammogram: Yes Review of Systems Const Reports no additional complaints Eyes Reports no additional complaints ENT Reports no additional complaints Card Reports no additional complaints Resp Reports no additional complaints GI Reports no additional complaints Reports as per [facility] Skin/Breast Reports system reviewed and no additional complaints, except as documented Physical Exam Vital Signs: Last Vital Signs BP 120/66 05/25/25 12:56 BMI result Body Mass Index 32.4 Const General: cooperative, healthy appearing and no acute distress Orientation/consciousness: patient oriented x3 HEENT Head: Yes normocephalic Neck Neck: Yes normal visual inspection Chest Breast/axilla inspection: normal inspection of the breasts and normal inspection of the axillae Breast/axilla palpation: normal palpation of the breasts, normal palpation of the axillae and no axillary lymphadenopathy Resp Effort & Inspection: normal respiratory effort and able to speak in complete sentences GI Inspection: No distended Palpation (GI): Soft to palpation and nontender Percussion: Yes normal to percussion Rectal Exam - Female: visual inspection normal ([ ]) External Female Exam: normal external appearance ( findings consistent with small, benign dilated blood vessels ) and normal appearance of the urethra Speculum Exam - Vagina: normal appearance of the vagina Speculum Exam - Cervix: Cervix absent (Vaginal cuff w/o lesions) Bimanual exam- vagina & uterus: uterus absent Skin General skin exam: no rashes or lesions noted Neuro General: patient oriented x3 Extrem General: Yes normal to inspection Psych Affect: normal affect Attitude: cooperative Assessment & Plan Assessment & Plan (1) Encounter for well woman exam with routine gynecological exam: Code(s): Z01.419 - Encounter for gynecological examination (general) (routine) without abnormal findings Category: Medical Plan: During the visit, the following areas of concern were addressed: Regular exercise Healthy lifestyle Menopausal/leatha-menopausal signs and symptoms, including nonprescription strategies for management Health Maintenance and Screening -Reviewed ASCCP guidelines for Paps and yearly (bi-yearly ) pelvic exam. -Reviewed and encouraged diet and exercise for cardiovascular and bone health -Reviewed breast self-awareness. Importance of yearly mammogram after age 40 (earlier if first-degree relative with breast cancer at a younger age ) Discuss use of 3 times per week weight-bearing exercise, vitamin D3 and servings of dietary calcium daily for bone health. -continue to follow with PCP for general medical care, immunizations. Screening strategies for colon cancer after age 50. Discussion of Kegel exercises for urinary incontinence Family and personal history of cancer reviewed. Genetic screening - not indicated The patient has BMI: 32 Approaches towards weight loss are discussed including burning more calories than one takes in by frequent, small meals, portion control, avoiding eating before bedtime, regular exercise with an emphasis on duration rather than intensity, strength training exercise. RTO one year or sooner prefren Porter CNM Note about provider documentation : If you or the patient named in this chart and are reviewing your medical notes, please note that medical documentation is often written with abbreviations and medical terminology, and directed for other providers who may be involved in your care as well. Documentation is critical to record what has happened, what tests were ordered, and so they are interpreted with the resulting diagnoses. These notes have been made available for patient review but not specifically written for the patient. Important health information is always given to my patients in clinical instructions. Please review your after visit summary and our contact our clinical staff if you have any questions. (2) Screening breast examination: Code(s): Z12.39 - Encounter for other screening for malignant neoplasm of breast (3) Uses Nigerian as primary spoken language: Code(s): Z78.9 - Other specified health status (4) Vaginal discharge: Code(s): N89.8 - Other specified noninflammatory disorders of vagina Plan 1. Annual Gynecological Examination The patient presented for a routine well-woman visit. A pelvic exam was performed, but a clinical breast exam was deferred at the patient's request. Plan includes routine follow-up in one year. 2. Vulvar Lesions The patient's concern regarding black spots on her posterior labia was addressed. Examination revealed findings consistent with small, benign telangiectasias, likely related to postmenopausal skin atrophy. She was reassured that these findings are not clinically significant and require no further intervention at this time. 3. Vaginal Discharge A scant amount of discharge was noted during the speculum exam. Although the patient is asymptomatic, a swab was collected and will be sent for laboratory analysis. The patient will be contacted with results within two days, and treatment will be prescribed if necessary to her preferred pharmacy, [facility]. 4. Postmenopausal State and Osteoporosis Prevention The patient is postmenopausal. She was counseled on the increased risk for osteoporosis due to menopause. Plan includes providing patient education on incorporating calcium and vitamin D-rich foods into her diet to support bone health. 5. History of Pulmonary Nodules and Kidney Cancer The patient's oncologic history was noted. She is under the care of an oncologist and has an appointment scheduled soon to review recent imaging. No gynecologic intervention is required. 6. Follow-up The patient was advised to schedule a follow-up appointment in one year at the front office coordinator. She was instructed to call sooner if any new concerns arise. Orders: Orders Bacterial Vaginosis Panel Today N89.8 - Other specified noninflammatory disorders of vagina, Z01.419 - Encounter for gynecological examination (general) (routine) without abnormal findings Patient Instructions: - The black spots you noticed on your skin are small blood vessels that are more visible because your skin is thinner after menopause. They are not a cause for concern. - We took a sample of a small amount of vaginal discharge to send to the lab. We will call you with the results in about two days. If you need any medication, we will send it to the [facility]. - To keep your bones strong, it is important to eat foods with plenty of calcium and vitamin D. We will give you some information about foods that are rich in calcium. - Please continue to follow up with your cancer doctor, Dr. Johnson, for your other health conditions. - Please stop at the front office coordinator to make a follow-up appointment for your next annual exam in about one year. - If you have any new problems or concerns before your next appointment, please call our office. Coding Level of Care Code Est Pt Prev Care 40-64y(66934) Diagnoses Encounter for well woman exam with routine gynecological exam Z01.419 Screening breast examination Z12.39 Uses Nigerian as primary spoken language Z78.9 Vaginal discharge N89.8
[2025-05-25 12:56] VITALS: BP 120/66; BMI 32.4
--- OUTSIDE RECORDS SUMMARY | 2025-05-25 16:54 | XMS_ITS | Clinical Summary ---
Author Organization [facility] Address [address] [place] [address] Phone Care Team Providers Care Health Unit Coordinator Name Role Phone Physician, No Pcp Primary Care Provider Unavaila ble Allergies Active Allergy Reactions Criticality Noted Date Comments Morphine 05/09/2024 Medications triamcinolone (KENALOG) 0.1 % cream Apply thin film to affected areas(s) four times daily. 15 g 10/08/2024 10/09/19 26 Active Eliquis 5 mg tablet Take 1 tablet (5 mg total) by mouth 2 (two) times a day. Active levothyroxine (SYNTHROID, LEVOTHROID) 75 mcg tablet Take 1 tablet (75 mcg total) by mouth 1 (one) time each day before breakfast. 03/23/2025 Active propranoloL (INDERAL) 10 mg tablet Take 1 tablet (10 mg total) by mouth 2 times daily. 07/13/2024 Active zolpidem (AMBIEN) 10 mg tablet Take 1 tablet (10 mg total) by mouth at bedtime as needed for sleep. 10/01/2018 Active Active Problems No known active problems Encounters Date Type Department Care Team Description 2025 6:43 PM EDT - 03/30/2025 1:41 PM EDT Emergency [facility] Emergency [address] [place] [address] Zoie Florentino MD Wyman, Tim, MD Zaidi, MD Tonja Zurita Ashley, MD Landry, MD Isaac Ewing, MD Juana Willis Ross, MD Goebel, Mathew, MD Medication overdose, intentional self-harm, initial encounter [place] [place] [facility] [place] [place]28[place] (Primary Dx) [facility] 3 Months Medical History Medical History Date Comments Diabetes mellitus ([facility] [place], [facility] [place] [place]28) Hypertension Social History Tobacco Use Types [...] Results * ECG-Annotated (03/31/2025) us Provider Onbase MD ECG ORDERABLES Final Result * ECG 12 lead (03/30/2025 12:59 PM EDT) Pathologist [facility] [place] Ventricular Rate ECG 60 BPM GEMUSE Atrial Rate 60 BPM GEMUSE P-R Interval 198 ms GEMUSE QRS Duration 90 ms GEMUSE Q-T Interval 434 ms GEMUSE QTc 434 ms GEMUSE P Wave [place] 31 degrees GEMUSE R [place] 38 degrees GEMUSE T [place] 47 degrees GEMUSE ECG Interpretation Normal sinus [...] of2 resultswithin the time period is included. [facility] Glucose POCT 85 70 - 100 mg/dL 03/29/2025 8:30 AM EDT [facility] Blood Capillary blood specimen / Unknown 03/29/2025 8:22 AM EDT 03/29/2025 8:31 AM EDT Everardo Gray MD LAB POINT OF CARE TEST DOCKED DEVICE UNSOLICITED RESULTS Final Result [facility] [address] [place] [address], [place] [phone] * Activated Partial Thromboplastin Time - STAT (03/26/2025 6:31 PM EDT) [facility] aPTT 32.6 24.1 - 39.3 sec LAB COAGULATION METHOD 03/26/2025 7:16 PM EDT [facility] Blood Venous blood specimen / Unknown Venipuncture / Unknown 03/26/2025 6:31 PM EDT 03/26/2025 6:53 PM EDT us Ayden Vera MD LAB BLOOD ORDERABLES Shelli l Result Performing Organization Address City/[facility]/ZIP Co de Phone Number [facility] [address] [place] [address], [place] [phone] * Prothrombin Time with INR - STAT (03/26/2025 6:31 PM EDT) [facility] Protime 12.3 10.6 - 13.9 sec LAB COAGULATION METHOD 03/26/2025 7:16 PM EDT [facility] INR 1.0 LAB COAGULATION METHOD 03/26/2025 7:16 PM EDT [facility] Blood Venous blood specimen / Unknown Venipuncture / Unknown 03/26/2025 6:31 PM EDT 03/26/2025 6:53 PM EDT us Ayden Vera MD LAB BLOOD ORDERABLES Shelli l Result Performing Organization Address City/[facility]/ZIP Co de Phone Number [facility] [address] [place] [address], [place] [phone] * (ABNORMAL) Drug abuse screen 8a panel, urine (03/26/2025 9:34 AM EDT) Pathologist [facility] [place] Amphetamine Screen, Ur Negative Negative LAB CHEMISTRY METHOD 10:50 AM EDT [facility] Comment:Certain OTC medicati ons containing ephedrine, phenylephrine, pseudoephedrine and phenylpropanolamine can cause false positive results. Barbiturate Screen, Ur Negative Negative LAB CHEMISTRY METHOD 5 10:50 AM EDT [facility] Benzodiazepine Screen, Ur Positive(A ) Negative LAB CHEMISTRY METHOD 10:50 AM EDT [facility] Cocaine Screen, Ur Negative Negative LAB CHEMISTRY METHOD 10:50 AM EDT [facility] Opiate Screen, Ur Negative Negative LAB CHEMISTRY METHOD 10:50 AM T [facility] Cannabinoid (THC) Screen, Ur Negative Negative LAB CHEMISTRY METHOD 10:50 AM EDT [facility] Comment:Specimens from patie nts taking pantoprazole sodium (Protonix) have been shown to produce false positive results. Oxycodone Screen, Ur Negative Negative LAB CHEMISTRY METHOD 10:50 AM T [facility] Fentanyl, Ur Negative Negative LAB CHEMISTRY METHOD 10:50 AM [facility] Urine Urine specimen obtained by clean catch procedure / Unknown Non-blood Collection / Unknown 03/26/2025 9:34 AM EDT 03/26/2025 10:15 AM EDT Narrative [facility] - 03/26/2025 10:50 AM EDT [...] MD LAB URINE ORDERABLES Final Res ult [facility] [address] [place] [address], * Buprenorphine screen, urine (03/26/2025 9:34 AM EDT) Buprenorphine Screen Urine Negative Negative LAB CHEMISTRY METHOD 03/26/2025 10:50 AM EDT [facility] Urine Urine specimen obtained by clean catch procedure / Unknown Non-blood Collection / Unknown 03/26/2025 9:34 AM EDT 03/26/2025 10:15 AM EDT Narrative [facility] - 03/26/2025 10:50 AM EDT Assay cutoff 5 ng/mL Semi-quantitative assay for screening purposes only. Unconfirmed screening result should not be used for non-medical purposes. *ALTERNATE METHOD CONFIRMATION DONE UPON REQUEST ONLY* Zoie Florentino MD LAB URINE ORDERABLES Final Res ult Performing Organization Address [facility] Co de Phone Number [facility] [address] [place] [address], [place] [phone] * Methadone, urine (03/26/2025 9:34 AM EDT) Methadone Screen, Urine Negative Negative LAB CHEMISTRY METHOD 03/26/2025 10:50 AM EDT [facility] Comment: Assay cutoff 300 ng/mL [...] ORDERABLES Final Res ult Performing Organization Address City/[facility]/ZIP Co de Phone Number [facility] [address] [place] [address], [place] [phone] * Phencyclidine, urine (03/26/2025 9:34 AM EDT) PCP Scrn, Ur Negative Negative LAB CHEMISTRY METHOD 03/26/2025 10:56 AM EDT [facility] Comment: Assay cutoff 25 ng/mL [...] ORDERABLES Final Res ult Performing Organization Address [facility]/ZIP Co de Phone Number [facility] [address] [place] [address], [place] [phone] * Thyroid stimulating hormone with reflex to free t4 and free t3 (2025 9:44 PM EDT) [facility] TSH 2.35 0.40 - 4.00 mcIU/mL LAB CHEMISTRY METHOD 2025 11:20 PM EDT [facility] Blood Venous blood specimen / Unknown Venipuncture / Unknown 2025 9:44 PM EDT 2025 10:00 PM EDT Zoie Florentino MD LAB BLOOD ORDERABLES Final Res ult Performing Organization Address [facility] de Phone Number [facility] [address] [place] [address], [place] [phone] * (ABNORMAL) CBC auto differential (2025 9:44 PM EDT) [facility] WBC 3.9(L) 4.8 - 10.8 K/mcL LAB HEMETOLOGY METHOD 2025 10:07 PM EDT [facility] RBC 3.20(L) 3.80 - 4.80 M/mcL LAB HEMETOLOGY METHOD 2025 10:07 PM EDT [facility] Hemoglobin 10.9(L) 11.5 - 16.0 g/dL LAB HEMETOLOGY METHOD 2025 10:07 PM EDT [facility] Hematocrit 32.6(L) 35.0 - 47.0 % LAB HEMETOLOGY METHOD 2025 10:07 PM T [facility] MCV 101.9(H) 79.0 - 98.0 [...] 10:07 PM [facility] Monocytes Relative 8.8 % LAB HEMETOLOGY METHOD 2025 10:07 PM [facility] Eosinophils Relative 1.3 % LAB HEMETOLOGY METHOD 2025 10:07 PM EDT [facility] Basophils Relative 0.3 % LAB HEMETOLOGY METHOD 2025 10:07 PM EDT [facility] Immature Granulocytes Relative 0.3 % LAB HEMETOLOGY METHOD 2025 10:07 PM EDT [facility] Neutrophils Absolute 2.80 1.50 - 7.00 K/mcL LAB HEMETOLOGY METHOD 2025 10:07 PM EDT [facility] Lymphocytes Absolute 0.65(L) 1.00 - 5.00 K/mcL LAB HEMETOLOGY METHOD 2025 10:07 PM EDT [facility] Monocytes Absolute 0.34 0.20 - 1.00 K/mcL LAB HEMETOLOGY METHOD 2025 10:07 PM EDT [facility] Eosinophils Absolute 0.05 0.00 - 0.50 K/mcL LAB HEMETOLOGY METHOD 2025 10:07 PM EDT [facility] Basophils Absolute 0.01 0.00 - 0.20 K/mcL LAB HEMETOLOGY METHOD 2025 10:07 PM EDT [facility] Immature Granulocytes Absolute 0.01 0.00 - 0.03 K/mcL LAB HEMETOLOGY METHOD 2025 10:07 PM EDT [facility] Blood Venous blood specimen / Unknown Venipuncture / Unknown 2025 9:44 PM EDT 2025 10:00 PM EDT us Zoie Florentino MD LAB BLOOD ORDERABLES Final Res ult [facility] [address] [place] [address], * (ABNORMAL) Magnesium (2025 9:44 PM EDT) Magnesium 1.8(L) 1.9 - 2.6 mg/dL LAB CHEMISTRY METHOD 03/26/2025 12:17 AM EDT [facility] Blood Venous blood specimen / Unknown Venipuncture / Unknown 2025 9:44 PM EDT 2025 10:00 PM EDT us Zoie Florentino MD LAB BLOOD ORDERABLES Final Res ult Performing Organization Address City/[facility]/ZIP Co de Phone Number [facility] [address] [place] [address], [place] [phone] * Ethanol (2025 9:44 PM EDT) Ethanol Level <3 0 - 10 mg/dL LAB CHEMISTRY METHOD 2025 10:47 PM EDT [facility] Blood Venous blood specimen / Unknown Venipuncture / Unknown 2025 9:44 PM EDT 2025 10:00 PM EDT us Zoie Florentino MD LAB BLOOD ORDERABLES Final Res ult Performing Organization Address City/[facility]/ZIP Co de Phone Number [facility] [address] [place] [address], [place] [phone] * (ABNORMAL) Acetaminophen level (2025 9:44 PM EDT) Only the most recent of2 resultswithin the time period is included. Acetaminophen Level <2.0(L) 10.0 - 30.0 mcg/mL LAB CHEMISTRY METHOD 2025 10:46 PM EDT [facility] Blood Venous blood specimen / Unknown Venipuncture / Unknown 2025 9:44 PM EDT 2025 10:00 PM EDT us Zoie Florentino MD LAB BLOOD ORDERABLES Final Res ult Performing Organization Address City/[facility]/ZIP Co de Phone Number [facility] [address] [place] [address], [place] [phone] * (ABNORMAL) Salicylate level (2025 9:44 PM EDT) Salicylate Level <1.7(L) 2.0 - 29.0 mg/dL LAB CHEMISTRY METHOD 2025 10:47 PM EDT [facility] Blood Venous blood specimen / Unknown Venipuncture / Unknown 2025 9:44 PM EDT 2025 10:00 PM EDT Zoie Florentino MD LAB BLOOD ORDERABLES Final Res ult Performing Organization Address [facility]/ZIP Co de Phone Number [facility] [address] [place] [address], [place] [phone] * (ABNORMAL) Comprehensive metabolic panel (2025 9:44 PM EDT) Sodium 145 133 - 145 mmol/L LAB CHEMISTRY METHOD 2025 10:48 PM EDT [facility] Potassium 3.6 3.5 - 5.5 mmol/L LAB CHEMISTRY METHOD 2025 10:48 PM EDT [facility] Chloride 113(H) 96 - 110 mmol/L LAB CHEMISTRY METHOD 2025 10:48 PM EDT [facility] CO2 27 21 - 32 mmol/L LAB CHEMISTRY METHOD 2025 10:48 PM EDT [facility] Anion Gap 5 3 - 11 LAB CHEMISTRY METHOD 2025 10:48 PM EDT [facility] Glucose 91 70 - 100 mg/dL LAB CHEMISTRY METHOD 2025 10:48 PM EDT [facility] BUN 9 [...] 2025 10:48 PM [facility] Blood Venous blood specimen / Unknown Venipuncture / Unknown 2025 9:44 PM EDT 2025 10:00 PM EDT us Zoie Florentino MD LAB BLOOD ORDERABLES Final Res ult [facility] [address] [place] [address], [place] [phone] from Last 3 Months Insurance MEDICAID - [place] Care Teams Health Unit Coordinator Relationship Specialty Start Date End Date Physician, No Pcp PCP - General 05/09/24
--- OUTSIDE RECORDS SUMMARY | 2025-05-25 16:54 | XMS_ITS | Encounter Summary ---
Author Organization [employer] Address [address] [facility] 7t [place] [address] Care Team Providers Care Rn Hedis Name Role Phone Kristy Wilder MD Primary Care Pro vider Bradly Gonzalez MD Unavailable Rk Smith Unavailable Buck Hess DPM Unavailable [phone] Rosanne Mosley Unavailable Reason for Visit * Reason Comments Med Refill Encounter Details Date Type Department Care Team (Late st Contact Info) Description 02/25/2025 Refill [facility] MEDICINE [address] [place], [place] [phone] Kristy Wilder MD 230 [place], [place] [phone] Primary insomnia Social History Tobacco Use Types [...] Description 06/15/2025 1:00 PM EST Office Visit [facility] 505 [place] [address] Zi Lozano DDS 230 [place] [address] 08/15/2025 2:00 PM EDT Telemedicine [facility] MED & PEDS 505 [place] [address] Colette Diop, BRICE 505 [place] [address] documented as of this encounter Visit Diagnoses Diagnosis Primary insomnia Persistent disorder of initiating or maintaining sleep documented in this encounter Additional Health Concerns Assessment Noted Time PHQ-9 Depression Total Score: 12 025 9:32 AM EDT documented as of this encounter Care Teams Rn Hedis Relationship Specialty Start Date End Date Kristy Wilder MD 230 [place] [address] PCP - General Internal Medicine 12/26/22 Bradly Gonzalez MD [address] [facility] [facility] [address] [place] [address] Vascular Surgery 07/17/22 Rk Smith 100 [facility] [address] [place] [address] Otolaryngology 01/14/25 Buck Hess DPM [address] [place] [address] [address] [place] [address] Podiatry 01/14/25 Rosanne Mosley 03/28/25 05/02/25 Evita Hanna Pot FluxerDirector Camp 11/04/[address] [address] Physical Therapy 07/17/22 documented as of this encounter
--- OUTSIDE RECORDS SUMMARY | 2025-05-25 16:54 | XMS_ITS | Encounter Summary ---
Author Organization [employer] Address 75 [facility] 7t [place] [address] Care Team Providers Care Diesel Powerplant Mechanic Name Role Phone Kristy Wilder MD Primary Care Pro vider Bradly Gonzalez MD Unavailable Rk Smith Unavailable Buck Hess DPM Unavailable [phone] Rosanne Mosley Unavailable Reason for Visit * Reason Comments Med Refill Encounter Details Date Type Department Care Team (Late st Contact Info) Description 05/15/2023 Refill [facility] MEDICINE 230 [place], [place] [phone] Evelina Freeman MD 230 [place], [place] [phone] Social History Tobacco Use Types Packs/Day Years [...] Description 06/15/2025 1:00 PM EST Office Visit [facility] 505 [place] [address] Zi Lozano DDS 230 [place] [address] 08/15/2025 2:00 PM EDT Telemedicine [facility] MED & PEDS 505 [place] [address] Colette Diop, BRICE 505 [place] [address] documented as of this encounter Visit Diagnoses Not on filedocumented in this encounter Additional Health Concerns Assessment Noted Time PHQ-9 Depression Total Score: 16 023 11:20 AM EDT documented as of this encounter Care Teams Diesel Powerplant Mechanic Relationship Specialty Start Date End Date Kristy Wilder MD 230 [place] [address] PCP - General Internal Medicine 12/26/22 Bradly Gonzalez MD [address] [place] [address] Vascular Surgery 07/17/22 Rk Smith [address] [place] [address] Otolaryngology 01/14/25 Buck Hess DPM [address] [place] [address] 250 [place] [address] Podiatry 01/14/25 Rosanne Mosley 03/28/25 05/02/25 Evita Hanna Natural Foods ClerkCut Off Saw Set Up Operator 11/04/24 [facility] CORE [address] [place] [address] Physical Therapy 07/17/22 documented as of this encounter
--- OUTSIDE RECORDS SUMMARY | 2025-05-25 16:55 | XMS_ITS ---
Author Organization [facility] Address [address] [phone] Care Team Providers Care Brush Or Broom Cutter Name Role Phone Davon Wu Primary Care Provider [phone] Active Problems Problem Noted Date Diagnosed Date [...]
--- OUTSIDE RECORDS SUMMARY | 2025-05-25 16:55 | XMS_ITS | Encounter Summary ---
Author Organization [employer] Address [address] [facility] 7 [place] [address] Care Team Providers Care Skin Toggler Name Role Phone Kristy Wilder MD Primary Care Pro vider Bradly Gonzalez MD Unavailable Rk Smith Unavailable Buck Hess DPM Unavailable [phone] Reason for Visit * Reason Onset Date Comments DME Order 05/23/2025 Encounter Details Date Type Department Care Team ([facility] st Contact Info) Description 05/23/2025 Telephone [facility] MEDICINE 230 [place], [place] [phone] Kristy Wilder MD 230 [place] [address] DME Order Social History Tobacco Use Types Packs/Day Years [...] encounter Miscellaneous Notes * Telephone Encounter - Vianca Dial - 05/24/2025 3:47 PM EST Please see message below and advise. If agree, please provide dx and addend note to support the need for the dme items. Thank you * Telephone Encounter - Roberto Topete - 05/23/2025 1:36 PM EST Tc from pt requesting a DME order for a bathroom chair, Diaper's size medium, and gloves size medium. Pt also requesting for a emergency medical alert bracelet. Contact Esperanza at [phone] documented in this encounter Plan of Treatment Upcoming Encounters Date Type Department Care Team (Late st Contact Info) Description 06/15/2025 1:00 PM EST Office Visit [facility] [address] [place] [address] Zi Lozano, EDDIE 230 [place] [address] 08/15/2025 2:00 PM EDT Telemedicine [facility] MED & PEDS 505 [place] [address] Colette Diop, BRICE 505 [place] [address] documented as of this encounter Goals Goal [...] blood pressure task No Zoe Beach, BRICE Patient has chronic [...] chronic kidney disease No Paul, Yvonne, OD Patient has chronic [...] Care Plan Weekly blood pressure task No De LeonKenyon burtonerjada Patient has chronic kidney disease Care Plan Patient has chronic kidney disease No De LeonJohanna burton Patient has chronic kidney disease Care Plan Patient has chronic kidney disease No De LeonJohanna burton Weekly blood pressure task Care Plan Weekly blood pressure task No Lozano, Zi, DDS Weekly blood pressure task Care Plan Weekly blood pressure task No Lozano, Zi, DDS Patient has chronic kidney disease Care Plan Patient has chronic kidney disease No Lozano Zi, DDS Patient has chronic kidney disease [...] Patient has chronic kidney disease No Talha Hererra Weekly blood pressure task Care Plan Weekly blood pressure task No Roberto Benavides Weekly blood pressure task Care Plan Weekly blood pressure task No Roberto Benavides Patient has chronic kidney disease Care Plan Patient has chronic kidney disease No Roberto Benavides Patient has chronic kidney disease Care Plan Patient has chronic kidney disease No Roberto Benavides Weekly blood pressure task Care Plan Weekly blood pressure task No Rere Godinez Weekly blood pressure task Care Plan Weekly blood pressure task No Rere Godinez Patient has chronic kidney disease Care Plan Patient has chronic kidney disease No Rere Godinez Patient has chronic kidney disease Care Plan Patient has chronic kidney disease No Rere Godinez documented as of this encounter Visit Diagnoses [...] 05/20/2025 Patient has chronic kidney disease 05/20/2025 Weekly blood pressure task 05/23/2025 Weekly blood pressure task 05/23/2025 Patient has chronic kidney disease 05/23/2025 Patient has chronic kidney disease 05/23/2025 Weekly blood pressure task 05/23/2025 Weekly blood pressure task 05/23/2025 Patient has chronic kidney disease 05/23/2025 Patient has chronic kidney disease 05/23/2025 Assessment Noted Time PHQ-9 Depression Total Score: 14 025 11:30 AM EDT documented as of this encounter Care Teams Skin Toggler Relationship Specialty Start Date End Date Kristy Wilder MD 230 [place] [address] PCP - General Internal Medicine 12/26/22 Bradly Gonzalez MD [address] [place] [address] Drive [address] [place] [address] Vascular Surgery 07/17/22 Rk Smith 100 [facility] [address] [place] [address] Otolaryngology 01/14/25 Buck Hess DPM 175 [facility] [address] [place] [address] Podiatry 01/14/25 Evita Hanna Trackmobile OperatorAdvertising Manager 11/04/[address] [address] Physical Therapy 07/17/22 documented as of this encounter
--- OUTSIDE RECORDS SUMMARY | 2025-05-25 16:55 | XMS_ITS | Encounter Summary ---
Author Organization [employer] Address 75 [facility] 7t [place] [address] Care Team Providers Care Steam Pressure Chamber Operator Name Role Phone Kristy Wilder MD Primary Care Pro vider Bradly Gonzalez MD Unavailable Rk Smith Unavailable Buck Hess DPM Unavailable [phone] Rosanne Mosley Unavailable Reason for Visit * [...] (Late st Contact Info) Description 02/11/2023 Refill [facility] [address] [place] [phone] Kristy Wilder MD 230 [place], [place] [phone] Primary insomnia; Chronic low back pain, unspecified [...] Description 06/15/2025 1:00 PM EST Office Visit [facility] ADULT DENTAL 505 [place] [address] Zi Lozano DDS 230 [place] [address] 08/15/2025 2:00 PM EDT Telemedicine [facility] MED & PEDS 505 [place], [place] [phone] Colette Diop RN 505 [place], [place] [phone] documented as of this encounter Visit Diagnoses Diagnosis Primary insomnia Persistent disorder of initiating or maintaining sleep Chronic low back pain, unspecified back pain laterality, unspecified whether sciatica present documented in this encounter Additional Health Concerns Assessment Noted Time PHQ-9 Depression Total Score: 11 022 1:16 PM EST documented as of this encounter Care Teams Steam Pressure Chamber Operator Relationship Specialty Start Date End Date Kristy Wilder MD 230 [place] [address] PCP - General Internal Medicine 12/26/22 Bradly Gonzalez MD [address] [place] [address] Vascular Surgery 07/17/[address] [facility] [address] [place] [address] Otolaryngology 01/14/25 Buck Hess DPM [address] [place] [address] Podiatry 01/14/25 Rosanne Mosley 03/28/25 05/02/25 Evita Hanna Director Of Ancillary ServicesFruit Worker 11/04/[address] [address] Physical Therapy 07/17/22 documented as of this encounter
--- OUTSIDE RECORDS SUMMARY | 2025-05-25 16:55 | XMS_ITS | Encounter Summary ---
Author Organization [employer] Address 75 [facility] 7t [place] [address] Care Team Providers Care Hydraulics Engineer Name Role Phone Kristy Wilder MD Primary Care Pro vider Bradly Gonzalez MD Unavailable Rk Smith Unavailable Buck Hess DPM Unavailable [phone] Rosanne Mosley Unavailable Reason for Visit * Reason Comments Med Refill Encounter Details Date Type Department Care Team (Late st Contact Info) Description 09/10/2023 Refill [facility] MEDICINE 230 [place], [place] [phone] Kristy Wilder MD 230 [place], [place] [phone] Type 2 diabetes mellitus with diabetic polyneuropathy, without long-term current use of insulin ([facility]) Social History Tobacco Use [...] Description 06/15/2025 1:00 PM EST Office Visit [facility] ADULT DENTAL 505 [place] [address] Zi Lozano DDS 230 [place] [address] 08/15/2025 2:00 PM EDT Telemedicine [facility] MED & PEDS 505 [place] [address] Colette Diop, BRICE 505 [place] [address] documented as of this encounter Visit Diagnoses Diagnosis Type 2 diabetes mellitus with diabetic polyneuropathy, without long-term current use of insulin (HCC) documented in this encounter Additional Health Concerns Assessment Noted Time PHQ-9 Depression Total Score: 16 023 11:20 AM EDT documented as of this encounter Care Teams Hydraulics Engineer Relationship Specialty Start Date End Date Kristy Wilder MD 230 [place] [address] PCP - General Internal Medicine 12/26/22 Bradly Gonzalez MD [address] [place] [address] Vascular Surgery 07/17/22 Rk Smith [address] [place] [address] Otolaryngology 01/14/25 Buck Hess DPM 175 [facility] [address] [place] [address] Podiatry 01/14/25 Rosanne Mosley 03/28/25 05/02/25 Evita Hanna Prototype Special BuildClam Dredger 11/04/24 [facility] [place] [address] [place] [address] Physical Therapy 07/17/22 documented as of this encounter
--- OUTSIDE RECORDS SUMMARY | 2025-05-25 16:55 | XMS_ITS | Clinical Summary ---
Author Organization [facility] Address [address] [place] [address] Care Team Providers Care Flat Optical Element Maker Name Role Phone Gloria Wujuice Partha Primary Care Provider [phone] Allergies Active Allergy Reactions Criticality Noted Date [...] 04/09/2029 04/09/2019 Medical Devices Implanted Type Area Patient Care Coordinator Device Identifier Shelf Expiration Date Model / Serial / Lot System Closure Suture Medicated Perclose Proglide 6fr - [id number] Implanted:Qty: 1 on 02/04/2019 at [facility] Implant [employer] [id number] 126 73-03 / / Coil Embolization Neurovascular [place] 0.035in [id number] Tornado - [id number] Implanted:Qty: 1 on 02/04/2019 at [facility] Implant [employer] [id number] 10/11/19 23 [id number] / / [id number] Coil Embolization Neurovascular [place] 0.035in [id number] Tornado - [id number] Implanted:Qty: 1 on 02/04/2019 at [facility] Implant [employer] [id number] 08/03/19 24 [id number] / / [id number] Coil Embolization Neurovascular [place] 0.035in [id number] Tornado - [id number] Implanted:Qty: 1 on 02/04/2019 at [facility] Implant [employer] [id number] 08/03/19 24 [id number] / / [id number] Coil Embolization Neurovascular [place] 0.035in [id number] Tornado - [id number] Implanted:Qty: 1 on 02/04/2019 at [facility] Implant [employer] [id number] 08/03/19 24 [id number] / / [id number] Insurance Care Teams Flat Optical Element Maker Relationship Specialty Start Date End Date Davon Wu [address] [place] [address] PCP - General Internal Medicine 09/28/18
--- OUTSIDE RECORDS SUMMARY | 2025-05-25 16:55 | XMS_ITS | Encounter Summary ---
Author Organization [employer] Address [address] [facility] [address] 7t [place] [address] Care Team Providers Care Department Of Mathematics Chair Name Role Phone Kristy Wilder MD Primary Care Pro vider Bradly Gonzalez MD Unavailable Rk Smith Unavailable Buck Hess DPM Unavailable [phone] Encounter Details Date Type Department Care Team ([facility] st Contact Info) Description 05/23/2025 Telephone [facility] ADULT DENTAL [address] [place] [address] Zi Lozano DDS 230 [place] [address] Social History Tobacco Use Types Packs/Day Years [...] encounter Miscellaneous Notes * Telephone Encounter - Rere Godinez - 05/23/2025 2:40 PM EST To schedule endo Per Dr. Lozano documented in this encounter Plan of Treatment Upcoming Encounters Date Type Department Care Team (Late st Contact Info) Description 06/15/2025 1:00 PM EST Office Visit [facility] ADULT DENTAL 505 [place] [address] Zi Lozano DDS 230 [place] [address] 08/15/2025 2:00 PM EDT Telemedicine [facility] MED & PEDS 505 [place] [address] Colette Diop, RN 505 [place] [address] documented as of this encounter Goals Goal Patient Goal Type Associated Problems Recent Progress Patient-Stated? Author Help patients manage their type 2 diabetes Care Plan Help patients manage their type 2 diabetes Zoe Clayton, RN Weekly blood pressure task Care Plan Weekly blood pressure task Zoe Clayton, RN Help patients manage their type 2 diabetes Care Plan Help patients manage their type 2 diabetes No Yong, Zoe, RN Patient has chronic kidney disease Care Plan Patient has chronic kidney disease No Zoe Beach, RN Weekly blood pressure task Care Plan Weekly blood pressure task No Zoe Beach, RN Patient has chronic kidney disease Care Plan Patient has chronic kidney disease No Zoe Beach, RN Weekly blood pressure task Care [...] Care Plan Weekly blood pressure task No LozanoZi fried, DDS Weekly blood pressure task Care Plan Weekly blood pressure task No Lozano Zi, DDS Patient has chronic kidney disease Care Plan Patient has chronic kidney disease No Jeffrey Lozanoipe, DDS Patient has chronic kidney disease Care Plan Patient has chronic kidney disease No Zi Lozano, DDS Weekly blood pressure task Care Plan [...] documented as of this encounter Care Teams Department Of Mathematics Chair Relationship Specialty Start Date End Date Kristy Wilder MD 230 [place] [address] PCP - General Internal Medicine 12/26/22 Bradly Gonzalez MD [address] [facility] [address] [place] [address] Vascular Surgery 07/17/22 Rk Smith 100 [facility] [address] [place] [address] Otolaryngology 01/14/25 Buck Hess DPM 175 [facility] [address] [place] [address] Podiatry 01/14/25 Evita Hanna Tractor Drill OperatorBrass Roller 11/04/[address] [address] Physical Therapy 07/17/22 documented as of this encounter
--- OUTSIDE RECORDS SUMMARY | 2025-05-25 16:55 | XMS_ITS | Encounter Summary ---
Author Organization [employer] Address 75 [facility] 7t [place] [address] Care Team Providers Care Chief Human Resources Officer Name Role Phone Khloe Fonseca Primary Care Provider Kristy Ring MD Primary Care Pro vider Bradly Gonzalez MD Unavailable Rk Smith Unavailable Buck Hess DPM Unavailable [phone] Rosanne Mosley Unavailable Reason for Visit * Reason Onset Date Comments pt1 10/16/2022 Encounter Details Date Type Department Care Team (Late st Contact Info) Description 10/16/2022 Telephone [facility] MEDICINE [address] [place] [address] Khloe Fonseca FNP pt1 Social History Tobacco [...] Nannette Whittaker - 10/24/2022 10:19 AM EDT Gas Meter Repairer called and left voicemail for pt stating Pt1 Request was approved and she may call to schedule * Telephone Encounter - Nannette Whittaker - 10/24/2022 10:17 AM EDT Patient will recieve approval / denial letter via mail. PT-1 Request [id number] Pending - [facility] Pulmonology [address] [place] [address] [place] [address] * Telephone Encounter - Eddie Sousa - 10/21/2022 10:14 AM EDT Tc from pt requesting status on PT1. Date: October 22, 2022 Time: 2:45 pm address:[address] [place] [address] [place] [address] specialty:Pulmonology Center # visits: supersonic engineer: no Wheelchair: no * Telephone Encounter - Marko Rodriguez - 10/16/2022 11:51 AM EDT Tc from pt requesting pt1 ride Date: october 22, 2022 Time: 2:45 pm address:[address] [place] [address] [place] [address] specialty:Pul[facility]ology Center # visits: supersonic engineer: no Wheelchair: no documented in this encounter Plan of Treatment Upcoming Encounters Date Type Department Care Team (Late st Contact Info) Description 06/15/2025 1:00 PM EST Office Visit [facility] ADULT DENTAL 505 [place] [address] Zi Lozano, EDDIE [address] [place] [address] 08/15/2025 2:00 PM EDT Telemedicine [facility] MED & PEDS 505 [place] [address] Colette Diop, RN 505 [place], [place] documented as of this encounter Visit Diagnoses Not on filedocumented in this encounter Additional Health Concerns Assessment Noted Time PHQ-9 Depression Total Score: 11 022 1:16 PM EST documented as of this encounter Care Teams Chief Human Resources Officer Relationship Specialty Start Date End Date Khloe Fonseca FNP PCP - General Family Medicine 02/05/22 12/25/22 Kristy Wilder MD 230 [place] [address] PCP - General Internal Medicine 12/26/22 Bradly Gonzalez MD [address] [place] [address] Vascular Surgery 07/17/22 Rk Smith 100 [facility] [address] [place] [address] Otolaryngology 01/14/25 Buck Hess DPM 175 [facility] [address] [place] [address] Podiatry 01/14/25 Rosanne Mosley 03/28/25 05/02/25 Evita Hanna Welder 2Nd ShiftPressurization Mechanic 11/04/[address] [address] Physical Therapy 07/17/22 documented as of this encounter
--- OUTSIDE RECORDS SUMMARY | 2025-05-25 16:55 | XMS_ITS | Encounter Summary ---
Author Organization [employer] Address 75 [facility] 7 [place] [address] Care Team Providers Care Row Boss Name Role Phone Kristy Wilder MD Primary Care Pro vider Bradly Gonzalez MD Unavailable Rk Smith Unavailable Buck Hess DPM Unavailable [phone] Rosanne Mosley Unavailable Reason for Visit * Reason Onset Date Comments PT-1 12/31/2024 Encounter Details Date Type Department Care Team ([facility] st Contact Info) Description 12/31/2024 Telephone [facility] MEDICINE 230 [place], [place] [phone] Kristy Wilder MD 230 [place], [place] [phone] PT-1 Social History Tobacco Use Types Packs/Day [...] Y/N: Yes Provider name or facility name: [facility] Facility Address: [address] [place] [address] Escort needed: Y/N: Yes Do you have a wheelchair: Y/N: No If yes- Manual or electric: N/A Visits: 3 times a month documented in this encounter Plan of Treatment Upcoming Encounters Date Type Department Care Team ([facility] st Contact Info) Description 06/15/2025 1:00 PM EST Office Visit [facility] ADULT DENTAL 505 [place] [address] Zi Lozano DDS 230 [place] [address] 08/15/2025 2:00 PM EDT Telemedicine [facility] MED & PEDS 505 [place] [address] Colette Diop, RN 505 [place] [address] documented as of this encounter Visit Diagnoses Not on filedocumented in this encounter Additional Health Concerns Assessment Noted Time PHQ-9 Depression Total Score: 16 025 2:11 PM EDT documented as of this encounter Care Teams Row Boss Relationship Specialty Start Date End Date Kristy Wilder MD 230 [place] [address] PCP - General Internal Medicine 12/26/22 Bradly Gonzalez MD [address] [facility] [address] [place] [address] Vascular Surgery 07/17/22 Rk Smith 100 [facility] [address] [place] [address] Otolaryngology 01/14/25 Buck Hess DPM 175 [facility] [address] [place] [address] Podiatry 01/14/25 Rosanne Mosley 03/28/25 05/02/25 Evita Hanna Dental Equipment RepairerOracle Sql Developer 11/04/[address] [address] Physical Therapy 07/17/22 documented as of this encounter
--- OUTSIDE RECORDS SUMMARY | 2025-05-25 16:55 | XMS_ITS | Encounter Summary ---
Author Organization [employer] Address [address] [facility] [address] [place] [address] Care Team Providers Care Lna Name Role Phone Kristy Wilder MD Primary Care Pro vider Bradly Gonzalez MD Unavailable Rk Smith Unavailable Buck Hess DPM Unavailable [phone] Rosanne Mosley Unavailable Reason for Visit * Reason Onset Date Comments Letter for School/Work 12/26/2022 Encounter Details Date Type Department Care Team (Late st Contact Info) Description 12/26/2022 Telephone [facility] MED[facility] [address] [place], [place] [phone] Kristy Wilder MD [address] [place], [place] [phone] Letter for School/Work Social History Tobacco Use [...] for PCP to make a letter for WEB UI SOFTWARE ENGINEER hours and dx on letter to be faxed to [phone] documented in this encounter Plan of Treatment Upcoming Encounters Date Type Department Care Team (Late st Contact Info) Description 06/15/2025 1:00 PM EST Office Visit [facility] [address] [place] [address] Zi Lozano DDS [address] [place] [address] 08/15/2025 2:00 PM EDT Telemedicine [facility] [address] [place] [address] Colette Diop RN [address] [place] [address] documented as of this encounter Visit Diagnoses Not on filedocumented in this encounter Additional Health Concerns Assessment Noted Time PHQ-9 Depression Total Score: 11 022 1:16 PM EST documented as of this encounter Care Teams Lna Relationship Specialty Start Date End Date Kristy Wilder MD [address] [place] [address] PCP - General Internal Medicine 12/26/22 Bradly Gonzalez MD [address] [place] [address] Vascular Surgery 07/17/22 Rk Smith [address] [facility] [address] [place], [place] [address] Otolaryngology 01/14/25 Buck Hess DPM [address] [place] [address] Podiatry 01/14/25 Rosanne Mosley 03/28/25 05/02/25 Evita Hanna Stave Saw OperatorImaging Technologist 11/04/[address] [address] Physical Therapy 07/17/22 documented as of this encounter
--- OUTSIDE RECORDS SUMMARY | 2025-05-25 16:55 | XMS_ITS | Encounter Summary ---
Author Organization [employer] Address 75 [facility] 7[address] [place] [address] Care Team Providers Care Health Insurance Adjuster Name Role Phone Khloe Fonseca Primary Care Provider Kristy Ring MD Primary Care Pro vider Bradly Gonzalez MD Unavailable Rk Smith Unavailable Buck Hess DPM Unavailable [phone] Rosanne Mosley Unavailable Reason for Visit * Reason Onset Date Comments pt1 10/03/2022 Encounter Details Date Type Department Care Team (Late st Contact Info) Description 10/03/2022 Telephone [facility] MED[facility]INE [address] [place] [phone] Khloe Fonseca FNP pt1 Social History Tobacco [...] 3 10/03/2022 9:34 AM EDT Jessenia Boston, WATER SOFTENER SERVICE SUPERVISOR Not being able to stop or control [...] oct 07 2022 Time: 2:30 pm address: [address] [place] [address] [address], [place] [address] specialty: # visits: animal laboratory technician: no Wheelchair: no Date:10/23/22 Time:02 pm address: [facility] specialty: PCP # visits: animal laboratory technician: no Wheelchair: no Date:11/07/22 Time: 1:30 address: [facility] specialty: PCP # visits: animal laboratory technician: no Wheelchair:no documented in this encounter Plan of Treatment Upcoming Encounters Date Type Department Care Team (Late st Contact Info) Description 06/15/2025 1:00 PM EST Office Visit [facility] [address] [place] [address] Zi Lozano DDS [address] [place] [address] 08/15/2025 2:00 PM EDT Telemedicine [facility] [address] [place] [address] Colette Diop RN [address] [place] [address] documented as of this encounter Visit Diagnoses Not on filedocumented in this encounter Additional Health Concerns Assessment Noted Time PHQ-9 Depression Total Score: 11 022 1:16 PM EST documented as of this encounter Care Teams Health Insurance Adjuster Relationship Specialty Start Date End Date Khloe Fonseca FNP PCP - General Family Medicine 02/05/22 12/25/22 Kristy Wilder MD [address] [place] [address] PCP - General Internal Medicine 12/26/22 Bradly Gonzalez MD [address] [place] [address] [address] [place] [address] Vascular Surgery 07/17/22 Rk Smith 100 [facility] [address] [place] [address] Otolaryngology 01/14/25 Buck Hess DPM [address] [place] [address] [address] [place] [address] Podiatry 01/14/25 Rosanne Mosley 03/28/25 05/02/25 Evita Hanna Log Yard Derrick OperatorRn Support Services 11/04/[address] [address] Physical Therapy 07/17/22 documented as of this encounter
--- OUTSIDE RECORDS SUMMARY | 2025-05-25 16:55 | XMS_ITS | Encounter Summary ---
Author Organization [employer] Address 75 [facility] 7t [place] [address] Care Team Providers Care Mechanic Name Role Phone Khloe Fonseca ANESTHESIA RESIDENT Primary Care Provider Kristy Ring MD Primary Care Pro vider Bradly Gonzalez MD Unavailable Rk Smith Unavailable Buck Hess DPM Unavailable [phone] Rosanne Mosley Unavailable Encounter Details Date Type Department Care Team (Late st Contact Info) Description 12/09/2022 Abstract [facility] MED[facility]INE [address] [place] [address] Khloe Fonseca FNP Social History Tobacco Use [...] Description 06/15/2025 1:00 PM EST Office Visit [facility] ADULT D[facility] [address] [place] [address] Zi Lozano DDS [address] [place] [address] 08/15/2025 2:00 PM EDT Telemedicine [facility] [address] [place], [place] [phone] Colette Diop RN [address] [place] [address] documented as of this encounter Visit Diagnoses Not on filedocumented in this encounter Additional Health Concerns Assessment Noted Time PHQ-9 Depression Total Score: 11 022 1:16 PM EST documented as of this encounter Care Teams Mechanic Relationship Specialty Start Date End Date Khloe Fonseca FNP PCP - General Family Medicine 02/05/22 12/25/22 Kristy Wilder MD [address] [place] [address] PCP - General Internal Medicine 12/26/22 Bradly Gonzalez MD [address] [place] [address] Vascular Surgery 07/17/22 Rk Smith 100 [facility] [address] [place], [place] [address] Otolaryngology 01/14/25 Buck Hess DPM 175 [facility] [address] [place] [address] Podiatry 01/14/25 Rosanne Mosley 03/28/25 05/02/25 Evita Hanna Compressed Gas TesterRn Documentation Specialist 11/04/24 [facility] [address] [place] [address] Physical Therapy 07/17/22 documented as of this encounter
--- OUTSIDE RECORDS SUMMARY | 2025-05-25 16:55 | XMS_ITS | Clinical Summary ---
Author Organization [employer] Address [address] [facility] [address] [place] [address] Care Team Providers Care News Editor Name Role Phone Kristy Wilder MD Primary Care Pro vider Bradly Gonzalez MD Unavailable Rk Smith Unavailable Buck Hess DPM Unavailable [phone] Allergies Active Allergy Reactions Criticality Noted Date Comments Wtuuggycp-Kg-Dyjgjauqkbcec Unknown 3 Hydromorphone Rash Low 06/28/2020 Other reaction(s): Nausea / Vomiting Morphine 05/09/2024 Other Rash Low 02/04/2019 Contax, medication for [place] Phenylephrine 12/19/2022 Other reaction(s): EDEMA Medications * This document contains information received from the source organization and may not represent a complete record from that organization. Cabometyx 40 MG chemo tablet 023 Active Eliquis 5 MG tablet Take 1 tablet by mouth 2 times daily. 024 Active Alcohol Swabs (Alcohol Prep) 70 % padsIndications: Type 2 diabetes mellitus without complications (HCC) USE DIRECTED THREE TIMES DAILY 100 each 11 024 Active famotidine (Pepcid) 20 MG tabletIndication s:Gastroesophage al reflux disease without esophagitis TAKE 1 TABLET BY MOUTH TWICE DAILY IN THE MORNING AND AT BEDTIME 180 tablet 1 025 Active metFORMIN (Glucophage) 500 MG tabletIndication s:Elevated blood sugar TAKE 1 TABLET BY MOUTH EVERY MORNING and TAKE 2 TABLETS BY MOUTH EVERY DAY IN THE EVENING 270 tablet 1 05/09/20 25 5:08 PM EST 025 Active Multiple Vitamin (Multivitamin) tablet TAKE 1 TABLET BY MOUTH EVERY MORNING 90 tablet 1 06/30/2 025 Active nystatin (Mycostatin) [id number] UNIT/GM powder Apply topically if needed each day for rash. 60 g 1 025 Active cholecalciferol (Vitamin D-3) 25 MCG (1000 UT) tablet Take 1 tablet (25 mcg) by mouth Once per day. 90 tablet 1 025 2025 Active sertraline (Zoloft) 100 MG tablet Take 1 tablet (100 mg) by mouth Once per day. 30 tablet 1 025 Active hydrOXYzine HCl (Atarax) 25 MG [...] Active oxyCODONE (Roxicodone) 5 MG immediate release tabletIndication s:Back pain, unspecified back location, unspecified back pain [...] becomes available. 2 each 1 025 Active losartan (Cozaar) 25 MG tabletIndication s:Primary hypertension TAKE 1 TABLET BY MOUTH EVERYDAY AT NOON 90 tablet 1 025 Active atorvastatin (Lipitor) 10 MG tabletIndication s:Mixed hyperlipidemia TAKE 1 TABLET BY MOUTH AT BEDTIME 90 tablet 025 Active docusate sodium (Colace) 100 MG capsuleIndicatio ns:Therapeutic opioid induced constipation TAKE 1 CAPSULE BY MOUTH TWICE DAILY IN THE MORNING AND AT BEDTIME NEEDED 180 capsule 1 05/09/20 25 5:08 PM EST 025 Active busPIRone (Buspar) 10 MG tablet TAKE 1 TABLET BY MOUTH TWICE DAILY 60 tablet 2 Active levothyroxine (Synthroid, Levoxyl) 75 MCG tabletIndication s:Acquired hypothyroidism TAKE 1 TABLET BY MOUTH EVERY MORNING BEFORE BREAKFAST 90 tablet 05/09/20 25 5:08 PM EST Active TRUEplus Lancets 33G miscIndications: Type 2 diabetes mellitus with other specified complication, without long-term current use of insulin (HCC) USE DIRECTED TO TEST BLOOD SUGAR THREE TIMES DAILY 100 each 11 Active FREESTYLE LITE test stripIndications :Type 2 diabetes mellitus with other specified complication, without long-term current use of insulin (HCC) USE DIRECTED TO TEST BLOOD SUGAR THREE TIMES DAILY 100 strip 11 Active azelastine (Astelin) 0.1 % nasal spray INHALE 2 SPRAYS IN EACH NOSTRIL TWICE DAILY Active loratadine (Claritin) 10 MG tablet Take 1 tablet by mouth Once per day. Active risperiDONE (RisperDAL) 0.5 MG tablet TAKE 1 TABLET BY MOUTH EVERY DAY NEEDED FOR AGITATION OR FOR SEVERE ANXIETY Active traZODone (Desyrel) 50 MG tablet Take 50 mg by mouth if needed at bedtime for sleep. Active zolpidem (Ambien) 5 MG tablet Take 5 mg by mouth if needed at bedtime for sleep. Active Trulicity 1.5 MG/0.5ML solution auto-injector INJECT ONE PEN (=1.5MG) SUBCUTANEOUSLY ONCE A WEEK DIRECTED 2 mL 3 05/09/20 25 5:08 PM EST Active acetaminophen (Tylenol 8 Hour) 650 MG ER tablet Take 2 tablets by mouth every 8 (eight) hours. 022 2024 Discontinued(T herapy completed) Nutritional Supplements (Ensure Plus) liquid Drink supplement twice daily 021 2024 Discontinued(T herapy completed) Blood Glucose Monitoring Suppl (FreeStyle glucose monitoring) kit 1 each if needed. 2024 Discontinued(T herapy completed) Blood Pressure kit 1 kit. 2024 Discontinued(T herapy completed) Mintox Maximum Strength 400-400-40 MG/5ML suspension MIX WITH lidocaine AND benadryl, SHAKE WELL ,rinse AND SPIT OUT 10 ML FOUR TIMES DAILY NEEDED FOR PAIN IN MOUTH 2024 Discontinued(T herapy completed) M-Dryl 12.5 MG/5ML liquid MIX WITH lidocaine AND maalox, SHAKE WELL, RINSE AND SPIT OUT 10 ML FOUR TIMES DAILY NEEDED PAIN IN MOUTH 023 2024 Discontinued(T herapy completed) lidocaine (Xylocaine) 2 % solution MIX WITH BENADRYL AND MAALOX, SHAKE WELL RINSE AND SPIT OUT 10 ML FOUR TIMES DAILY NEEDED PAIN IN MOUTH 023 2024 Discontinued(T herapy completed) polyethylene glycol, PEG, 3350 (MiraLax) 17 GM/SCOOP powder take (17G) by oral route every day mixed with 8 oz. water, juice, coffee or tea 225 g 2 2024 Discontinued(T herapy completed) ammonium lactate (Lac-Hydrin) 12 % lotion Apply topically if needed (at bedtime). 2024 Discontinued(T herapy completed) cholestyramine (Questran) 4 g packet Take 1 packet by mouth with breakfast, with lunch, and with evening meal. 2024 Discontinued(T herapy completed) diphenoxylate-at ropine (Lomotil) 2.5-0.025 MG tablet Take 1 tablet by mouth 4 times daily. 2024 Discontinued(T herapy completed) loperamide (Imodium) 2 MG capsule Take 1 capsule by mouth if needed in the morning, at noon, in the evening, and at bedtime. 2024 Discontinued(T herapy completed) betamethasone, augmented, (Diprolene) 0.05 % ointmentIndicati ons:Psoriasis Apply topically 2 times daily. 50 g 11 024 2024 Discontinued(T herapy completed) calcipotriene (Dovonex) 0.005 % ointmentIndicati ons:Psoriasis APPLY TOPICALLY TO THE AFFECTED AREA(S) TWICE DAILY 60 g 3 025 2024 Discontinued(T herapy completed) Fluocinolone Acetonide Scalp 0.01 % oilIndications:P soriasis APPLY TOPICALLY TO THE AFFECTED AREA(S) TWICE A WEEK 118.28 mL 3 025 2024 Discontinued(T herapy completed) Dulaglutide (Trulicity) 1.5 MG/0.5ML solution auto-injector Inject 1.5 mg under the skin 1 (one) time per week. 0.5 mL 3 025 2024 Discontinued zolpidem (Ambien) 10 MG tabletIndication s:Primary insomnia TAKE 1 TABLET BY MOUTH AT BEDTIME 28 tablet 025 2024 Discontinued(T herapy completed) amoxicillin-clav ulanate (Augmentin) 875-125 MG tablet Take 1 tablet by mouth 2 times daily for 10 days. 20 tablet 04/27/20 25 4:21 PM EST 025 2024 Active Problems Problem Noted Date Diagnosed Date [...] 8:00 PM EDT): Encouraged pt to bring [employer] application for disability [employer] to Forms team. Pt has difficulty breathing r/t lung cancer diagnosis Pt will contact [employer] about increasing hours F/u PRN Therapeutic opioid [...] was grade 3. status post nephrectomy, at [facility] in January. 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 Date Type Department Care Team Description 05/23/2025 Telephone [facility] [address] [place] [address] Zi Lozano DDS 05/23/2025 Telephone [facility] [address] [place] [phone] Kristy Wilder MD DME Order 05/20/2025 3:00 PM EST Office Visit [facility] [address] [place] [address] Talha Herrera Dental calculus (Primary Dx) 05/19/2025 Orders Only [facility] External Provider, [facility] 05/16/2025 2:00 PM EST Telemedicine [facility] [address] [place] [address] Colette Diop RN Long-term current use of opiate analgesic 05/16/2025 Travel 05/11/2025 3:00 PM EST Office Visit [facility] [address] [place] [address] Talha Herrera Dental calculus (Primary Dx) 05/11/2025 2:30 PM EST Office Visit [facility] [address] [place] [address] Bryson Hobson DMD 05/02/2025 Patient Outreach [facility] [address] [place] [address] Kristy Wilder MD 05/02/2025 Refill [facility] [address] [place] [address] Kristy Wilder MD 04/27/2025 3:00 PM EST Office Visit [facility] [address] [place] [address] Zi Lozano, DDS 04/19/2025 Telephone [facility] [address] [place] [address] Kristy Wilder MD Nurse Triage 04/15/2025 2:30 PM EST Office Visit [facility] [address] [place] [address] Paul, Yvonne, OD Diabetes type 2, no ocular involvement (HCC) (Primary Dx); Age-related nuclear cataract of both eyes; 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; Crowded optic disc, bilateral; Presbyopia 04/15/2025 Travel 04/06/2025 Telephone [facility] [address] [place] [address] Kristy Wilder MD caroline recall 04/04/2025 Orders Only [facility] [address] [place] [phone] Kristy Wilder MD Hypothyroidism, unspecified type (Primary Dx) 04/04/2025 Results Follow-Up [facility] [address] [place] [phone] Kristy Wilder MD TSH, T4, Free, Comprehensive Metabolic Panel, Lipid Panel, Standard 04/04/2025 Orders Only GENERIC EXTERNAL DATA DEPARTMENT Provider, Generic External Data 04/04/2025 Refill [facility] [address] [place] [phone] Kristy Wilder MD Type 2 diabetes mellitus with other specified complication, without long-term current use of insulin (HCC) 03/29/2025 Patient Outreach [facility] [address] [place], [place] [phone] Kristy Wilder MD Care Coordination (CP Care Coordination chart review ) 03/28/2025 Patient Outreach [facility] [address] [place] [phone] Kristy Wilder MD 03/22/2025 Refill [facility] [address] [place] [phone] Kristy Wilder MD Acquired hypothyroidism 03/20/2025 Refill [facility] [address] [place] [address] Kristy Wilder MD 03/15/2025 Telephone [facility] [address] [place] [address] Kristy Wilder MD Nurse Triage 03/11/2025 Refill [facility] [address] [place] [address] Kristy Wilder MD Therapeutic opioid induced constipation 03/08/2025 10:45 AM EDT Office Visit [facility] [address] [place] [phone] Kristy Wilder MD Varicose veins of lower extremity, unspecified laterality, unspecified whether complicated (Primary Dx); Encounter for vaccination; Encounter for immunization; Essential hypertension; Varicose veins of both lower extremities, unspecified whether complicated; Type 2 diabetes mellitus with other specified complication, without long-term current use of insulin ([facility]); Health care maintenance; Depressive disorder; Memory loss 03/08/2025 Travel 03/07/2025 Telephone [facility] [address] [place] [address] Kristy Wilder MD chart prep 03/02/2025 Refill [facility] [address] [place] [phone] Kristy Wilder MD Primary hypertension; Mixed hyperlipidemia 03/01/2025 10:00 AM EDT Office Visit [facility] [address] [place] [address] Zi Lozano DDS 02/28/2025 Patient Outreach [facility] [address] [place] [phone] Kristy Wilder MD Pre-visit Planning (SDOH screening was completed on 09/20/2024) 02/28/2025 Refill [facility] [address] [place] [address] Kristy Wilder MD Primary insomnia 02/25/2025 Refill [facility] [address] [place] [address] Kristy Wilder MD Primary insomnia from Last [...] Pulse 75 05/20/2025 2:52 PM EST Temperature 36.7 C (98 F) 03/08/2025 11:29 [...] Visit [facility] [address] [place] [address] Zi Lozano DDS [address] [place] [address] 08/15/2025 2:00 PM EDT Telemedicine [facility] [address] [place] [address] Colette Diop, BRICE [address] [place] [address] Health Maintenance Due Date Last Done Comments [...] [employer] 03/02/2026 03/01/2025 Lipid Panel 04/04/2026 04/04/2025, 0711/2024, 12/19/2023, Additional history exists Tobacco Screening 05/20/2026 05/20/2025 Eye Exam 04/15/2027 04/15/2025, 11/0 12/2024, 04/15/2025, [...] Care Plan Weekly blood pressure task No Amie Gar Weekly blood pressure task Care Plan Weekly [...] Plan Weekly blood pressure task No Colette Diop, BRICE Patient has chronic kidney disease Care [...] has chronic kidney disease No Rere Godinez Procedures Procedure Name Priority Date/Time Associated Diagnosis Comments ORAL HYGIENE INSTRUCTIONS Routine 05/20/2025 3:00 PM EST CASE PRESENTATION, DETAILED AND EXTENSIVE TREATMENT PLANNING Routine 05/20/2025 3:00 PM EST LL PERIODONTAL SCALING AND ROOT PLANING - 4 OR MORE TEETH PER QUADRANT Routine 05/20/2025 3:00 PM EST UL PERIODONTAL SCALING AND ROOT PLANING - 4 OR MORE TEETH PER QUADRANT Routine 05/20/2025 3:[address] CHEST W CONTRAST Routine 05/19/2025 2 :11 PM EST POCT CREATININE GFR Routine 05/19/2025 2 :05 PM EST ORAL HYGIENE INSTRUCTIONS Routine 05/11/2025 3:00 PM EST CASE PRESENTATION, DETAILED AND EXTENSIVE TREATMENT PLANNING Routine 05/11/2025 3:00 PM EST LR PERIODONTAL SCALING AND ROOT PLANING - 4 OR MORE TEETH PER QUADRANT Routine 05/11/2025 3:00 PM EST UR PERIODONTAL SCALING AND ROOT PLANING - 4 OR MORE TEETH PER QUADRANT Routine 05/11/2025 3:00 PM EST NO CHARGE EXAM AND CONSULTATION Routine 05/11/2025 2:30 PM EST CASE PRESENTATION, DETAILED AND EXTENSIVE [...] ROOT CANAL Routine 03/01/2025 12:00 AM EDT HEPATITIS C AB W/REFL TO HCV [...] Relevant to Health Maintenance Results * CT Chest w/ Contrast (05/19/2025 2:11 PM EST) Anatomical Region Laterality Modality Body, Chest Computed Tomogra phy 05/19/2025 2:11 PM EST Narrative 05/19/2025 3:[address] [address] [address] Scan Report Signed Patient: Krys Gillis MR# : [id number] : 1965 Acct:[id number] Age/Sex: 60 / F ADM Date: 05/19/25 Loc: HO.CT Attending Dr: Justina Erickson MD Ordering Physician: Justina Erickson MD Date of Service: 05/19/25 Procedure(s): CT chest w IV con Accession Number(s): [id number] cc: Justina Erickson MD; Kristy Wilder MD Report Number: [id number]: Total DLP = 256.00 mGy-cm Reason for Exam: Follow-up on pulmonary nodules,renal cellcarcinoma EXAMINATION: CT CHEST WITH CONTRAST CLINICAL INFORMATION: 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 Axial MIP volume rendering provided. Sagittal and coronal reformatted images were obtained. This CT examination was performed using dose optimization techniques as appropriate, variously including the following: *Automated exposure control *Adjustment of mA and/or kV according to patient size (this includes techniques or standardized protocols for targeted exams where dose is matched to indication/reason for exam; i.e. 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 No lung consolidation. Multiple pulmonary nodules as follows: -Right lower lobe subpleural 0.1 cm (4:169/546), unchanged from August 2024 -Right upper lobe 0.2 cm (4:179/546), unchanged from August 2024 -Right lower lobe 0.2 cm (4:200/546), unchanged from August 2024 -Right lower lobe 0.2 cm (4:215/546), larger than August 2024 -Right lower lobe 0.2 cm (4:256/546), new from December 2024 -Right middle lobe 0.2 cm (4:259/546), unchanged from August 2024 -Left lower lobe 0.3 cm (4:281/546), larger than August 2024 -Left lower lobe 0.5 cm (4:297/546), smaller than August 2024, but larger than December 2024 -Right lower lobe 0.3 cm (4:210/546), unchanged from August 2024 -Right lower lobe 0.3 cm (4:321/546), new from December 2024 Note that some of the nodules were not well seen in December 2024 due to differences in available slice thickness and respiratory motion. MEDIASTINUM: Heart is normal in size. No pericardial effusion. No coronary artery calcifications. Thoracic aorta is normal in caliber, associated with mild atherosclerotic disease with calcifications. PLEURA: No pneumothorax. No pleural effusion. LYMPH NODES: No lymphadenopathy. UPPER ABDOMEN: Postsurgical changes from right nephrectomy. OSSEOUS STRUCTURES: No acute or suspicious osseous abnormality. CT/CT chest w IV con IMPRESSION: Multiple pulmonary nodules, the largest measuring 0.5 cm, some of them new and some enlarging compared to the prior studies. Some of these nodules were not well seen on the most recent study in December 2024, probably due to above explanation. Electronically signed by: London Zamora MD 05/19/2025 03:17 PM [facility] Dictated By: London Zamora MD Signed By: <Electronically signed by London Zamora MD in OV> 05/19/25 1517 DD/ 1411 TD/TT: 05/19/25 1428 Bait Man: Procedure Note Donotuseinterpreter, Image - 05/19/[address] [address] [address] Scan Report Signed Patient: Krys GillisMR# : [id number] : 1965Acct:[id number] Age/Sex: 60 / FADM Date: 05/19/25 Loc: HO.CT Attending Dr: uJstina Erickson MD Ordering Physician: Justina Erickson MD Date of Service: 05/19/25 Procedure(s): CT chest w IV con Accession Number(s): [id number] cc: Justina Erickson MD; Kristy Wilder MD Report Number: [id number]: Total DLP = 256.00 mGy-cm Reason for Exam: Follow-up on pulmonary nodules,renal cellcarcinoma EXAMINATION: CT CHEST WITH CONTRAST CLINICAL INFORMATION: 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 Axial MIP volume rendering provided. Sagittal and coronal reformatted images were obtained. This CT examination was performed using dose optimization techniques as appropriate, variously including the following: *Automated exposure control *Adjustment of mA and/or kV according to patient size (this includes techniques or standardized protocols for targeted exams where dose is matched to indication/reason for exam; i.e. 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 No lung consolidation. Multiple pulmonary nodules as follows: -Right lower lobe subpleural 0.1 cm (4:169/546), unchanged from August 2024 -Right upper lobe 0.2 cm (4:179/546), unchanged from August 2024 -Right lower lobe 0.2 cm (4:200/546), unchanged from August 2024 -Right lower lobe 0.2 cm (4:215/546), larger than August 2024 -Right lower lobe 0.2 cm (4:256/546), new from December 2024 -Right middle lobe 0.2 cm (4:259/546), unchanged from August 2024 -Left lower lobe 0.3 cm (4:281/546), larger than August 2024 -Left lower lobe 0.5 cm (4:297/546), smaller than August 2024, but larger than December 2024 -Right lower lobe 0.3 cm (4:210/546), unchanged from August 2024 -Right lower lobe 0.3 cm (4:321/546), new from December 2024 Note that some of the nodules were not well seen in December 2024 due to differences in available slice thickness and respiratory motion. MEDIASTINUM: Heart is normal in size. No pericardial effusion. No coronary artery calcifications. Thoracic aorta is normal in caliber, associated with mild atherosclerotic disease with calcifications. PLEURA: No pneumothorax. No pleural effusion. LYMPH NODES: No lymphadenopathy. UPPER ABDOMEN: Postsurgical changes from right nephrectomy. OSSEOUS STRUCTURES: No acute or suspicious osseous abnormality. CT/CT chest w IV con IMPRESSION: Multiple pulmonary nodules, the largest measuring 0.5 cm, some of them new and some enlarging compared to the prior studies. Some of these nodules were not well seen on the most recent study in December 2024, probably due to above explanation. Electronically signed by: London Zamora MD 05/19/2025 03:17 PM EST Dictated By: London Zamora MD Signed By: <Electronically signed by London Zamora MD in OV> 05/19/25 1517 DD/ 1411 TD/TT: 05/19/25 1428 Bait Man: [facility] External Provider IMG CT PROCEDURES Edited Result - Final * POCT Creatinine GFR (05/19/2025 2:05 PM EST) POCT Creatinine 0.8 0.5 - 1.4 mg/dL [facility] GFR POC >60 [facility] Comment:Chronic Kidney Disea se: Estimated GFR < 60 mL/min/[id number] Kidney Disease: Estimated GFR < 15 mL/min/1.73m2 05/19/2025 2:05 PM EST 05/20/2025 8:52 AM EST Narrative [facility] - 05/20/2025 8:53 AM EST [id number] Generic External Data Provider LAB POINT OF CARE TEST DOCKED DEVICE ORDERABLES Final Result [facility] [address] [place] [address] [phone] * (ABNORMAL) TSH (04/04/2025 9:49 AM EDT) Thyroid Stimulating Hormone 5.82(H) 0.32 - 4.0 uIU/mL [facility] Comment:Note: A sustained TS H level above 2.5 uIU/mL may warrant further investigation. TSH 3rd Generation ([facility]) Blood Venous blood specimen / Unknown 04/04/2025 9:49 AM EDT 04/04/2025 11:39 AM EDT Kristy Mosley MD LAB BLOOD ORDERAB LES Final Result Performing Organization Address [facility]/ZIP Co de Phone Number [facility] [address] [place] [phone] * T4, Free (04/04/2025 9:49 AM EDT) Pathologist [facility] Free T4 (Free Thyroxine) 0.94 0.71 - 1.85 ng/dL [facility] Blood Venous blood specimen / Unknown 04/04/2025 9:49 AM EDT 04/04/2025 11:39 AM EDT us Kristy Mosley MD LAB BLOOD ORDERAB LES Final Result Performing Organization Address City/[facility] Co de Phone Number [facility] [address] [place] [phone] * (ABNORMAL) Lipid Panel, Standard (04/04/2025 9:49 AM EDT) Triglycerides 126 <150 mg/dL [facility] Comment:Desirable Triglyceri de: less than 150 mg/dLBorderline High Triglyceride 150-199 mg/dLHigh Triglyceride: 200-499 mg/dLVery High Triglyceride: greater than or equal to 5OO mg/dL Cholesterol 161 <200 mg/dL [facility] Comment:Desirable Cholestero l: less than 200 mg/dLBorderline High Cholesterol: 200-239 mg/dLHigh Cholesterol: greater than 239 mg/dL LDL Cholesterol Calculated 105(H) <100 mg/dL [facility] Comment:Desirable LDL: less than 100 mg/dLNear Optimal/Above Optimal LDL: 110- 129 mg/dLBorderline High LDL: 130-159 mg/dLHigh LDL: 160-189 mg/dLVery High LDL: greater than or equal to 190 mg/dL HDL Cholesterol 31(L) >40 mg/dL [facility] Comment:Desirable HDL: great er than 40 mg/dL Note: This HDL assay may give artificially low results in patients with liver disease. Blood Venous blood specimen / Unknown 04/04/2025 9:49 AM EDT 04/04/2025 11:39 AM EDT Kristy Mosley MD LAB BLOOD ORDERAB LES Final Result [facility] [address] [place] [phone] * (ABNORMAL) Comprehensive Metabolic Panel (04/04/2025 9:49 AM EDT) Only the most recent of2 resultswithin the time period is included. Sodium 143 135 - 145 mmol/L [facility] Potassium 4.5 3.3 - 5.1 mmol/L [facility] Chloride 111(H) 96 - 108 mmol/L [facility] Carbon Dioxide 29 22 - 29 mmol/L [facility] Anion Gap 8(L) 12 - 20 [facility] Urea Nitrogen (BUN) 15 9 - 16 mg/dL [facility] Creatinine, Serum 0.92 0.5 - 1.4 mg/dL [facility] Estimated Glomerular Filt Rate >60 [facility] Comment:Chronic Kidney Disea se: Estimated GFR < 60 mL/min/1.42q9Nqkyox Kidney Disease: Estimated GFR < 15 mL/min/1.73m2 Glucose 89 60 - 115 mg/dL [facility] Calcium 9.1 8.4 - 10.2 mg/dL [facility] Bilirubin, Total 0.4 0.0 - 1.0 mg/dL [facility] Aspartate Amino Transferase 32(H) 5 - 31 U/L [facility] Alanine Aminotransferase 21 0 - 31 U/L [facility] Total Protein 6.5 6.5 - 8.0 g/dL [facility] Albumin Level 4.1 3.5 - 5.0 g/dL [facility] Alkaline Phosphatase 58 39 - 117 U/L [facility] 04/04/2025 9:49 AM EDT 04/04/2025 11:39 AM EDT us Generic External Data Provider LAB BLOOD ORDERAB LES Final Result Performing Organization Address [facility] Co de Phone Number [facility] [address] [place] [phone] * Albumin, Random Urine W/Creatinine (12/22/2024 9:56 AM EDT) Creatinine, Urine 257.42 mg/dL [facility] Microalbumin Urine 23.0 mg/L [facility] Microalbum Creatinine Ratio Ur 8.9 <30 ug/mg cr [facility] Comment:Albumin/Creatinine R atio Reference Ranges: Normal: < 30 ug/mg creatinine Microalbuminuria: 30 - 300 ug/mg creatinineClinical Albuminuria: > 300 ug/mg creatinine Urine (Urine, Random) 12/22/2024 9:56 AM EDT 12/22/2024 11:08 AM EDT us Kristy Mosley MD LAB URINE ORDERAB LES Final Result Performing Organization Address City/[facility]/ZIP Co de Phone Number [facility] [address] [place] [address] [phone] * Hepatitis C Antibody with Reflex to HCV, RNA, Quantitative, Real-Time PCR (12/22/2024 9:56 AM EDT) Hepatitis C Antibody Nonreactive Nonreactive [facility] Comment:Antibodies to HCV no t detected; does not exclude early acuteHCV infection. Blood Venous blood specimen / Unknown 12/22/2024 9:56 AM EDT 12/22/2024 11:07 AM EDT Kristy Mosley MD LAB BLOOD ORDERAB LES Final Result Performing Organization Address [facility]/ZIP Co de Phone Number [facility] [address] [place] [address] [phone] * HIV-1/2 Antigen and Antibodies, Fourth Generation, with Reflexes (12/22/2024 9:56 AM EDT) HIV AB/AG Nonreactive Nonreactive [facility] Comment:HIV-1 p24 Ag and/or HIV-1/HIV-2 Ab not detected.A test result that is nonreactive does not exclude thepossibility of exposure to or infection with HIV-1 and/orHIV-2. Nonreactive results in this assay for individualswith prior exposure to HIV-1 and/or HIV-2 may be due toantigen and antibody levels that are below the limit ofdetection of this assay.The [employer] HIV Ag/Ab Combo assay result andsupplemental assay results should be interpreted inconjunction with the patient's clinical presentation,history and other laboratory results. If the results areinconsistent with clinical evidence, additional testing issuggested to confirm the result. Blood Venous blood specimen / Unknown 12/22/2024 9:56 AM EDT 12/22/2024 11:07 AM EDT us Kristy Mosley MD LAB BLOOD ORDERAB LES Final Result Performing Organization Address City/[facility]/ZIP Co de Phone Number [facility] [address] [place] [address] [phone] * (ABNORMAL) Hemoglobin A1c (12/22/2024 9:56 AM EDT) Hemoglobin A1c 6.7(H) <6.0 % [facility] Comment:Hemoglobin A1C Refer ence Range Adults: 4.8 - 6.0 % Non diabetic: < 6.0 % Goal: < 7.0 %Additional Action Suggested: > 8.0 %Note: Hemoglobin A1c results are invalid for patients with abnormal amounts of HbF. Blood transfusions may impact the HbA1c concentration in the patient sample. Estimated Average Glucose 146 mg/dL [facility] Comment:eAG = Estimated ave rage glucose which is %A1C expressed asaverage glucose, using the formula of the Z3C-MynmuhyHwwkjjw Glucose study (ADAG), Diabetes Care, Vol.31,#8,2007 Blood Venous blood specimen / Unknown 12/22/2024 9:56 AM EDT 12/22/2024 11:09 AM EDT us Kristy Mosley MD LAB BLOOD ORDERAB LES Final Result Performing Organization Address City/State/[facility] Co de Phone Number [facility] [address] [place] [phone] * BI Mammogram Screening Tomosynthesis Bilateral (12/08/2024 1:55 PM EDT) Anatomical Region Laterality Modality Breast Bilateral Mammography 12/08/2024 1:55 PM EDT Narrative 12/19/2024 9:17 PM EDT [address] [place] [address] Mammography Report Signed Patient: Krys Gillis MR# : [id number] : 1965 Acct:[id number] Age/Sex: 59 / F ADM Date: 12/08/24 Loc: [facility] Attending Dr: Kristy Mosley MD Ordering Physician: Kristy Wilder MD Re sults: 1Negative Date of Service: 12/08/24 Follow Up: 1 Year From Orig inal Mammogram Procedure(s): MM tomosynthesis screening BI Accession Number(s): [id number] cc: Kristy Wilder MD EXAMINATION: MM SCREENING [...] OV> 12/19/242113 DD/ 1355 TD/TT: 12/08/24 1410 Bait Man: Procedure Note Donotuseinterpreter, Image - 12/19/2024 [facility] [address] [place] [address] Mammography Report Signed Patient: Krys Gillis# : [id number] : 1965Acct:[id number] Age/Sex: 59 / FADM Date: 12/08/24 Loc: .MAMMO Attending Dr: Kristy Mosley MD Ordering Physician: Kristy Wilder sults: 1Negative Date of Service: 12/08/24Follow Up: 1 Year From [facility] Mammogram Procedure(s): MM tomosynthesis screening BI Accession Number(s): [id number] cc: Kristy Wilder MD EXAMINATION: MM SCREENING [...] OV> 12/19/242113 DD/ 1355 TD/TT: 12/08/24 1410 Bait Man: Kristy Mosley MD IMG BI PROCEDURES Edited [...] 05/23/2025 Patient has chronic kidney disease 05/23/2025 Insurance [facility] C3 [facility] MEDICA[facility] STAND ADULT Care Teams News Editor Relationship Specialty Start Date End Date Kristy Wilder MD [address] [place] [address] PCP - General Internal Medicine 12/26/22 Bradly Gonzalez MD [address] [place] [address] Vascular Surgery 07/17/22 Rk Smith 100 [facility] [address] [place] [address] Otolaryngology 01/14/25 Buck Hess DPM [address] [place] [address] [address] [place] [address] Podiatry 01/14/25 Evita Hanna Pattern HandMachine Assistant 11/04/[address] [address] Physical Therapy 07/17/22
--- OUTSIDE RECORDS SUMMARY | 2025-05-25 16:55 | XMS_ITS | Encounter Summary ---
Author Organization [employer] Address [address] [facility] 7 [place] [address] Care Team Providers Care Steel Spar Operator Name Role Phone Kristy Wilder MD Primary Care Pro vider Bradly Gonzalez MD Unavailable Rk Smith Unavailable Buck Hess DPM Unavailable [phone] Rosanne Mosley Unavailable Reason for Visit * Reason Onset Date Comments PT-1 08/03/2024 Encounter Details Date Type Department Care Team ([facility] st Contact Info) Description 08/03/2024 Telephone [facility] MEDICINE [address] [place], [place] [phone] Kristy Wilder MD [address] [place], [place] [phone] PT-1 Social History Tobacco Use Types Packs/Day [...] facility name: [facility] Facility Address: [address] [place] [address] Escort needed: Y/N: No Do you have a wheelchair: Y/N: No If yes- Manual or electric: N/A Visits: Twice monthly documented in this encounter Plan of Treatment Upcoming Encounters Date Type Department Care Team (Late st Contact Info) Description 06/15/2025 1:00 PM EST Office Visit [facility] ADULT DENTAL [address] [place] [address] Zi Lozano DDS 230 [place] [address] 08/15/2025 2:00 PM EDT Telemedicine [facility] MED & PEDS [address] [place] [address] Colette Diop, RN 505 [place] [address] documented as of this encounter Visit Diagnoses Not on filedocumented in this encounter Additional Health Concerns Assessment Noted Time PHQ-9 Depression Total Score: 4 10/31/19 24 1:38 PM EDT documented as of this encounter Care Teams Steel Spar Operator Relationship Specialty Start Date End Date Kristy Wilder MD [address] [place] [address] PCP - General Internal Medicine 12/26/22 Bradly Gonzalez MD [address] [place] [address] Drive [address] [place] [address] Vascular Surgery 07/17/22 Rk Smith 100 [facility] [address] [place] [address] Otolaryngology 01/14/25 Buck Hess DPM [address] [place] [address] [address] [place] [address] Podiatry 01/14/25 Rosanne Mosley 03/28/25 05/02/25 Evita Hanna Commercial DirectorRn Palliative Care 11/04/[address] [address] Physical Therapy 07/17/22 documented as of this encounter
--- OUTSIDE RECORDS SUMMARY | 2025-05-25 16:55 | XMS_ITS | Encounter Summary ---
Author Organization [facility] Address [address] [place] [address] Care Team Providers Care Publicity Director Name Role Phone Davon Wu Primary Care Provider [phone] Encounter Details Date Type Department Care Team (Late st Contact Info) Description 10/31/2020 Orders Only [facility] Xray [address] [place], [place] [phone] Winifred Winston MD [address] [place], [place] [phone] Social History Tobacco Use Types Packs/Day Years [...] on filedocumented in this encounter Care Teams Publicity Director Relationship Specialty Start Date End Date Davon Wu [address] [place] [address] PCP - General Internal Medicine 09/28/18 documented as of this encounter
--- OUTSIDE RECORDS SUMMARY | 2025-05-25 16:55 | XMS_ITS | Encounter Summary ---
Author Organization [employer] Address 75 [facility] 7t [place] [address] Care Team Providers Care Product Safety Officer Name Role Phone Kristy Wilder MD Primary Care Pro vider Bradly Gonzalez MD Unavailable Rk Smith Unavailable Buck Hess DPM Unavailable [phone] Rosanne Mosley Unavailable Reason for Visit * Reason Onset Date Comments Reschedule 07/07/2023 Encounter Details Date Type Department Care Team ([facility] st Contact Info) Description 07/07/2023 Telephone [facility] MEDICINE [address] [place], [place] [phone] Kristy Wilder MD [address] [place], [place] [phone] Reschedule Social History Tobacco Use Types Packs/Day [...] Tc from pt requesting to r/s 07/25 ACCOUNTING RECONCILIATION CLERK appointment due to pt having 2 appointments scheduled same day and will be doing chemo. Please contact pt at [phone] (Portuguese) documented in this encounter Plan of Treatment Upcoming Encounters Date Type Department Care Team (Late st Contact Info) Description 06/15/2025 1:00 PM EST Office Visit [facility] ADULT DENTAL [address] [place] [address] Zi Lozano DDS 230 [place] [address] 08/15/2025 2:00 PM EDT Telemedicine [facility] MED & PEDS [address] [place] [address] Colette Diop, BRICE [address] [place] [address] documented as of this encounter Visit Diagnoses Not on filedocumented in this encounter Additional Health Concerns Assessment Noted Time PHQ-9 Depression Total Score: 16 023 11:20 AM EDT documented as of this encounter Care Teams Product Safety Officer Relationship Specialty Start Date End Date Kristy Wilder MD [address] [place] [address] PCP - General Internal Medicine 12/26/22 Bradly Gonzalez MD [address] [facility] [address] [place] [address] Vascular Surgery 07/17/22 Rk Smith 100 [facility] [address] [place] [address] Otolaryngology 01/14/25 Buck Hess DPM [address] [place] [address] [address] [place] [address] Podiatry 01/14/25 Rosanne Mosley 03/28/25 05/02/25 Evita Hanna Braille TeacherCrime Scene Evidence Technician 11/04/[address] [address] Physical Therapy 07/17/22 documented as of this encounter
--- OUTSIDE RECORDS SUMMARY | 2025-05-25 16:55 | XMS_ITS | Encounter Summary ---
Author Organization [employer] Address 75 [facility] 7t h Floor [place] [phone] Care Team Providers Care Policy Cancellation Clerk Name Role Phone Khloe Fonseca ASPHALT PLANT WORKER Primary Care Provider Kristy Ring MD Primary Care Pro vider Bradly Gonzalez MD Unavailable Rk Smith Unavailable Buck Hess DPM Unavailable [phone] Rosanne Mosley Unavailable Reason for Visit * Reason Onset Date Comments Med Refill [facility] order 08/25/2022 Order # [id number] Encounter Details Date Type Department Care Team (Late st Contact Info) Description 08/25/2022 Refill [facility] MEDICINE [address] [place] [address] Khloe Fonseca FNP Type 2 diabetes mellitus without complication, without long-term current use of insulin ([facility]) Social History [...] Description 06/15/2025 1:00 PM EST Office Visit [facility] ADULT DENTAL [address] [place] [address] Zi Lozano DDS 230 [place] [address] 08/15/2025 2:00 PM EDT Telemedicine [facility] MED [facility] PED[facility] 505 [place], [place] [phone] Colette Diop RN 505 [place] [address] documented as of this encounter Visit Diagnoses Diagnosis Type 2 diabetes mellitus without complication, without long-term current use of insulin (HCC) documented in this encounter Additional Health Concerns Assessment Noted Time PHQ-9 Depression Total Score: 11 022 1:16 PM EST documented as of this encounter Care Teams Policy Cancellation Clerk Relationship Specialty Start Date End Date Khloe Fonseca FNP PCP - General Family Medicine 02/05/22 12/25/22 Kristy Wilder MD 230 [place] [address] PCP - General Internal Medicine 12/26/22 Bradly Gonzalez MD [address] [place] [address] Vascular Surgery 07/17/22 Rk Smith 100 [facility] [address] [place], [place] [address] Otolaryngology 01/14/25 Buck Hess DPM [address] [place] [address] Podiatry 01/14/25 Rosanne Mosley 03/28/25 05/02/25 Evita Hanna Apartment Maintenance TechnicianReal Estate Legal Assistant 11/04/[address] [address] Physical Therapy 07/17/22 documented as of this encounter
--- OUTSIDE RECORDS SUMMARY | 2025-05-25 16:55 | XMS_ITS | Encounter Summary ---
Author Organization [employer] Address 75 [facility] 7t [place] [address] Care Team Providers Care Disc Jockey Name Role Phone Kristy Wilder MD Primary Care Pro vider Bradly Gonzalez MD Unavailable Rk Smith Unavailable Buck Hess DPM Unavailable [phone] Rosanne Mosley Unavailable Reason for Visit * Reason Comments Med Refill Encounter Details Date Type Department Care Team (Late st Contact Info) Description 09/25/2023 Refill [facility] MEDICINE [address] [place], [place] [phone] Kristy Wilder MD 230 [place], [place] [phone] Primary insomnia Social History Tobacco Use Types [...] Description 06/15/2025 1:00 PM EST Office Visit [facility] ADULT DENTAL [address] [place] [address] Zi Lozano DDS 230 [place] [address] 08/15/2025 2:00 PM EDT Telemedicine [facility] MED & PEDS [address] [place] [address] Colette Diop, BRICE 505 [place] [address] documented as of this encounter Visit Diagnoses Diagnosis Primary insomnia Persistent disorder of initiating or maintaining sleep documented in this encounter Additional Health Concerns Assessment Noted Time PHQ-9 Depression Total Score: 16 023 11:20 AM EDT documented as of this encounter Care Teams Disc Jockey Relationship Specialty Start Date End Date Kristy Wilder MD 230 [place] [address] PCP - General Internal Medicine 12/26/22 Bradly Gonzalez MD [address] [place] [address] Vascular Surgery 07/17/22 Rk Smith [address] [place], [place] [address] Otolaryngology 01/14/25 Buck Hess DPM [facility] 250 [place] [address] Podiatry 01/14/25 Rosanne Mosley 03/28/25 05/02/25 Evita Hanna Dredge Operator SupervisorEngraving Supervisor 11/04/[address] [address] Physical Therapy 07/17/22 documented as of this encounter
--- OUTSIDE RECORDS SUMMARY | 2025-05-25 16:55 | XMS_ITS | Encounter Summary ---
Author Organization [employer] Address 75 [facility] 7t [place] [address] Care Team Providers Care Automotive Parts Manager Name Role Phone Khloe Fonseca CONCRETE LABORER Primary Care Provider Kristy Ring MD Primary Care Pro vider Bradly Gonzalez MD Unavailable Rk Smith Unavailable Buck Hess DPM Unavailable [phone] Rosanne Mosley Unavailable Reason for Visit * Reason Onset Date Comments OTHER 12/24/2022 Encounter Details Date Type Department Care Team (Late st Contact Info) Description 12/24/2022 Telephone [facility] MEDICINE [address] [place] [address] Khloe Fonseca FNP OTHER Social History Tobacco [...] Miscellaneous Notes * Telephone Encounter - Mariluz Partick - 12/24/2022 1:51 PM EDT Tc from pt sister requesting for PCP to do an order for more hours on care. States she will be taking care of her. To clarify, please contact pt sister at [phone] documented in this encounter Plan of Treatment Upcoming Encounters Date Type Department Care Team (Late st Contact Info) Description 06/15/2025 1:00 PM EST Office Visit [facility] ADULT DENTAL [address] [place], [place] [phone] Zi Lozano DDS 230 [place] [address] 08/15/2025 2:00 PM EDT Telemedicine [facility] MED [facility] PED[facility] [address] [place], [place] [phone] Colette Diop, BRICE 505 [place] [address] documented as of this encounter Visit Diagnoses Not on filedocumented in this encounter Additional Health Concerns Assessment Noted Time PHQ-9 Depression Total Score: 11 022 1:16 PM EST documented as of this encounter Care Teams Automotive Parts Manager Relationship Specialty Start Date End Date Khloe Fonseca FNP PCP - General Family Medicine 02/05/22 12/25/22 Kristy Wilder MD 230 [place] [address] PCP - General Internal Medicine 12/26/22 Bradly Gonzalez MD [address] [place] [address] Vascular Surgery 07/17/22 Rk Smith 100 [facility] [address] [place] [address] Otolaryngology 01/14/25 Buck Hess DPM [address] [place] [address] [address] [place] [address] Podiatry 01/14/25 Rosanne Mosley 03/28/25 05/02/25 Evita Hanna Resource Recovery EngineerIndustrial Fabric Cutter 11/04/[address] [address] Physical Therapy 07/17/22 documented as of this encounter
--- OUTSIDE RECORDS SUMMARY | 2025-05-25 16:55 | XMS_ITS | Encounter Summary ---
Author Organization [employer] Address 75 [facility] 7 [place] [address] Care Team Providers Care Rotational Moulding Operator Name Role Phone Kristy Wilder MD Primary Care Pro vider Bradly Gonzalez MD Unavailable Rk Smith Unavailable Buck Hess DPM Unavailable [phone] Rosanne Mosley Unavailable Reason for Visit * Reason Onset Date Comments Nurse Triage 08/08/2023 Encounter Details Date Type Department Care Team (Late st Contact Info) Description 08/08/2023 Telephone [facility] MEDICINE 230 [place], [place] [phone] Kristy Wilder MD 230 [place], [place] [phone] Nurse Triage Social History Tobacco Use Types [...] EST Triage call returned to patient with [employer] Cutting Machine Fixer [id number]. Patient with soft voice and weakness. Received [...] to access 911 EMS for transport to [facility] ED ( followed by Oncologist) there. PCP [...] accepted this outcome Please contact pt at [phone] (Yoruba) documented in this encounter Plan of Treatment Upcoming Encounters Date Type Department Care Team ([facility] st Contact Info) Description 06/15/2025 1:00 PM EST Office Visit [facility] ADULT [facility] 505 [place] [address] Zi Lozano DDS 230 [place] [address] 08/15/2025 2:00 PM EDT Telemedicine [facility] 505 [place] [address] Colette Diop RN 505 [place] [address] documented as of this encounter Visit Diagnoses Not on filedocumented in this encounter Additional Health Concerns Assessment Noted Time PHQ-9 Depression Total Score: 16 023 11:20 AM EDT documented as of this encounter Care Teams Rotational Moulding Operator Relationship Specialty Start Date End Date Kristy Wilder MD 230 [place] [address] PCP - General Internal Medicine 12/26/22 Bradly Gonzalez MD [address] [place] [address] Vascular Surgery 07/17/22 Rk Smith 100 [facility] [address] [place] [address] Otolaryngology 01/14/25 Buck Hess DPM [address] [place] [address] Podiatry 01/14/25 Rosanne Mosley 03/28/25 05/02/25 Evita Hanna Tape Recorder RepairerRegistered Dietician 11/04/[address] [address] Physical Therapy 07/17/22 documented as of this encounter
== END 2025-05-25 15:06 | disposition home or self-care (01) ==
LOC: HO.HWSM 12:46
PROVIDERS: PCP Student in an Organized Health Care Education/Training Program; Visit Provider Advanced Practice Midwife
DX: Z01.419 Encounter for gynecological examination (general) (routine) without abnormal findings (principal); Z12.39 Encounter for other screening for malignant neoplasm of breast; Z78.9 Other specified health status; N89.8 Other specified noninflammatory disorders of vagina
CPT/HCPCS: 99396; 99459

== ENCOUNTER 2025-05-25 12:46 | Outpatient (REF) | payer MEDICAID, SELFPAY ==
[2025-05-26 01:35] LABS: Bacterial Vaginosis PCR POSITIVE (Negative); Candida Group PCR NOT DETECTED (Not Detect); Candida glab krusei PCR NOT DETECTED (Not Detect); Trichomonas vaginalis PCR NOT DETECTED (Not Detect)
--- OUTSIDE RECORDS SUMMARY | 2025-06-29 19:00 | XMS_ITS | Clinical Summary ---
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 Role Phone ANDREINA MENCHACA, CLARENCE Unavailable Unavailable TATI NARVAEZ, ALBERTA Unavailable Unavailable Payers Payer Name Policy Type Policy Number Effective Date Expira tion Date MEDICAID [facility] [id number] Problems Condition Name Condition Details Condition Category [...] 06-25 00:00: 00 09-01 23:59 :00 No [id number] 5 mg BEDTIME 5 mg BEDTIME (route: oral) Med Classific ation: Central Nervous System Agents buspirone 7.5 mg tablet 06-25 00:00: 00 09-01 23:59 :00 No [id number] 7.5 mg 2 TIMES DAILY 7.5 mg 2 TIMES DAILY (route: oral) Med Classific ation: Central Nervous System Agents Eliquis 5 mg tablet 06-25 00:00: 00 09-01 23:59 :00 No [id number] 5 mg 2 TIMES DAILY 5 mg 2 TIMES DAILY (route: oral) Med Classific ation: Hematolog ical Agents famotidine 20 mg tablet 06-25 00:00: 00 09-01 23:59 :00 No [id number] 20 mg 2 TIMES DAILY 20 mg 2 TIMES DAILY (route: oral) Med Classific ation: Gastroint estinal Therapy Agents levothyroxi ne 112 mcg tablet 06-25 00:00: 00 09-01 23:59 :00 No [id number] 112 mcg EVERY AM 112 mcg EVERY AM (route: oral) Med Classific ation: Endocrine losartan 25 mg tablet 06-25 00:00: 00 09-01 23:59 :00 No [id number] 25 mg NOON 25 mg NOON (route: oral) Med Classific ation: Cardiovas cular Therapy Agents metformin 500 mg tablet 06-25 00:00: 00 09-01 23:59 :00 No [id number] 500 mg DIRECTED 500 mg DIRECTED (route: oral) Med Classific ation: Endocrine mirtazapine 7.5 mg tablet 06-25 00:00: 00 09-01 23:59 :00 No [id number] 7.5 mg BEDTIME 7.5 mg BEDTIME (route: oral) Med Classific ation: Central Nervous System Agents Narcan 4 mg/actuatio n nasal spray 06-25 00:00: 00 09-01 23:59 :00 No [id number] 2 spray DIRECTED 2 spray DIRECTED (route: nasal) Med Classific ation: Antidotes and other Reversal Agents ondansetron 4 mg disintegrat ing tablet 06-25 00:00: 00 09-01 23:59 :00 No [id number] 4 mg EVERY 8 HOURS 4 mg EVERY 8 HOURS (route: oral) Med Classific ation: Gastroint estinal Therapy Agents oxycodone 5 mg tablet 06-25 00:00: 00 09-01 23:59 :00 No [id number] 5 mg EVERY 12 HOURS 5 mg EVERY 12 HOURS (route: oral) Med Classific ation: Analgesic , Anti-infl ammatory or Antipyret ic propranolol 10 mg tablet 06-25 00:00: 00 09-01 23:59 :00 No [id number] 17 mg 2 TIMES DAILY 17 mg 2 TIMES DAILY (route: oral) Med Classific ation: Cardiovas cular Therapy Agents sertraline 100 mg tablet 06-25 00:00: 00 09-01 23:59 :00 No [id number] 100 mg NOON 100 mg NOON (route: oral) Med Classific ation: Central Nervous System Agents buspirone 10 mg tablet 09-05 00:00: 00 04-08 23:59 :00 No [id number] 1 tablet 2 TIMES DAILY 1 tablet 2 TIMES DAILY (route: oral) Med Classific ation: Central Nervous System Agents Colace 100 mg capsule 09-04 00:00: 00 04-08 23:59 :00 No [id number] 1 capsule BEDTIME 1 capsule BEDTIME (route: oral) Med Classific ation: Gastroint estinal Therapy Agents Eliquis 5 mg tablet 09-04 00:00: 00 04-08 23:59 :00 No [id number] 1 tablet 2 TIMES DAILY 1 tablet 2 TIMES DAILY (route: oral) Med Classific ation: Hematolog ical Agents levothyroxi ne 112 mcg tablet 09-04 00:00: 00 04-08 23:59 :00 No [id number] 1 tablet EVERY AM 1 tablet EVERY AM (route: oral) Med Classific ation: Endocrine losartan 25 mg tablet 09-04 00:00: 00 04-08 23:59 :00 No [id number] 1 tablet NOON 1 tablet NOON (route: oral) Med Classific ation: Cardiovas cular Therapy Agents metformin 500 mg tablet 09-04 00:00: 00 04-08 23:59 :00 No [id number] 1 tablet EVERY AM 1 tablet EVERY AM (route: oral) Med Classific ation: Endocrine metformin 500 mg tablet 09-05 00:00: 00 04-08 23:59 :00 No [id number] 2 tablet EVERY PM 2 tablet EVERY PM (route: oral) Med Classific ation: Endocrine Pepcid 20 mg tablet 09-04 00:00: 00 04-08 23:59 :00 No [id number] 1 tablet 2 TIMES DAILY 1 tablet 2 TIMES DAILY (route: oral) Med Classific ation: Gastroint estinal Therapy Agents propranolol 10 mg tablet 09-04 00:00: 00 04-08 23:59 :00 No [id number] 1 tablet 2 TIMES DAILY 1 tablet 2 TIMES DAILY (route: oral) Med Classific ation: Cardiovas cular Therapy Agents sertraline 100 mg tablet 09-04 00:00: 00 04-08 23:59 :00 No [id number] 1 tablet NOON 1 tablet NOON (route: oral) Med Classific ation: Central Nervous System Agents mirtazapine 45 mg tablet 09-04 00:00: 00 04-08 23:59 :00 No [id number] 1 tablet BEDTIME 1 tablet BEDTIME (route: oral) Med Classific ation: Central Nervous System Agents hydroxyzine HCl 10 mg tablet 09-04 00:00: 00 04-08 23:59 :00 No [id number] 1-2 tablet 2 TIMES DAILY 1-2 tablet 2 TIMES DAILY (route: oral) Med Classific ation: Central Nervous System Agents buspirone 10 mg tablet 2024-06 00:00: 00 Yes [id number] 10 mg 2 TIMES DAILY 10 mg 2 TIMES DAILY (route: oral) Med Classific ation: Central Nervous System Agents Colace 100 mg capsule 2024-06 00:00: 00 Yes [id number] 100 mg BEDTIME 100 mg BEDTIME (route: oral) Med Classific ation: Gastroint estinal Therapy Agents Eliquis 5 mg tablet 2024-06 00:00: 00 Yes [id number] 5 mg 2 TIMES DAILY 5 mg 2 TIMES DAILY (route: oral) Med Classific ation: Hematolog ical Agents hydroxyzine HCl 10 mg tablet 2024-06 00:00: 00 Yes [id number] 10 mg 2 TIMES DAILY 10 mg 2 TIMES DAILY (route: oral) Med Classific ation: Central Nervous System Agents levothyroxi ne 112 mcg tablet 2024-06 00:00: 00 Yes [id number] 112 mcg EVERY AM 112 mcg EVERY AM (route: oral) Med Classific ation: Endocrine losartan 25 mg tablet 2024-06 00:00: 00 Yes [id number] 25 mg NOON 25 mg NOO N (route: oral) Med Classific ation: Cardiovas cular Therapy Agents metformin 500 mg tablet 2024-06 00:00: 00 Yes [id number] 500 mg EVERY AM 500 mg EVERY AM (route: oral) Med Classific ation: Endocrine metformin 500 mg tablet 2024-06 00:00: 00 Yes [id number] 500 mg EVERY PM 500 mg EVERY PM (route: oral) Med Classific ation: Endocrine mirtazapine 45 mg tablet 2024-06 00:00: 00 Yes [id number] 45 mg BEDTIME 45 mg BEDTIME (route: oral) Med Classific ation: Central Nervous System Agents Pepcid 20 mg tablet 2024-06 00:00: 00 Yes [id number] 20 mg 2 TIMES DAILY 20 mg 2 TIMES DAILY (route: oral) Med Classific ation: Gastroint estinal Therapy Agents propranolol 10 mg tablet 2024-06 00:00: 00 Yes [id number] 10 mg 2 TIMES DAILY 10 mg 2 TIMES DAILY (route: oral) Med Classific ation: Cardiovas cular Therapy Agents sertraline 100 mg tablet 2024-06 00:00: 00 Yes [id number] 100 mg NOON 100 mg NOON (route: oral) Med Classific ation: Central Nervous System Agents Vital Signs Vital Name Observation Time Observation Value Commen ts Temperature 2025-05-18 16:15:00.000 97.5 [degF] Temperature 2025-05-12 15:38:00.000 97.5 [degF] Temperature 2025-05-06 15:01:00.000 97.4 [degF] Pulse 2025-05-18 16:15:00.000 76 /min Pulse 2025-05-12 15:38:00.000 68 /min Pulse 2025-05-06 15:01:00.000 72 /min O2 Saturation (%) 2025-05-18 16:15:00.000 98 % O2 Saturation (%) 2025-05-12 15:38:00.000 98 % O2 Saturation (%) 2025-05-06 15:01:00.000 98 % Respirations 2025-05-18 16:15:00.000 16 /min Respirations 2025-05-12 15:38:00.000 16 /min Respirations 2025-05-06 15:01:00.000 16 /min Systolic Blood Pressure 2025-05-18 16:15:00.000 126 mm [Hg] Systolic Blood Pressure 2025-05-12 15:38:00.000 115 mm [Hg] Systolic Blood Pressure 2025-05-06 15:01:00.000 138 mm [Hg] Diastolic Blood Pressure 2025-05-18 16:15:00.000 74 mm [Hg] Diastolic Blood Pressure 2025-05-12 15:38:00.000 73 mm [Hg] Diastolic Blood Pressure 2025-05-06 15:01:00.000 74 mm [Hg] Plan of Treatment Planned Activity Planned Date Details Comments Future Scheduled Test SKILLED NU RSE TO EVALUATE PATIENT, IDENTIFY PRIMARY AND CO-MORBID CONDITIONS CODED PER CODING GUIDELINES, AND DEVELOP PATIENT SPECIFIC PLAN OF CARE THAT INCLUDES PATIENT GOAL FOR HOME HEALTH. PLAN OF CARE TO INCLUDE 3 PRN VISIT(S) FOR OASIS DATA COLLECTION/COMPREHENSIVE ASSESSMENT AT TIMEPOINTS PER FEDERAL REGULATIONS. THIS INCLUDES VISITS FOR ALIA, RECERT, SCIC, AND/OR DC. [code = SKILLED NURSE TO EVALUATE PATIENT, IDENTIFY PRIMARY AND CO-MORBID CONDITIONS CODED PER CODING GUIDELINES, AND DEVELOP PATIENT SPECIFIC PLAN OF CARE THAT INCLUDES PATIENT GOAL FOR HOME HEALTH. PLAN OF CARE TO INCLUDE 3 PRN VISIT(S) FOR OASIS DATA COLLECTION/COMPREHENSIVE ASSESSMENT AT TIMEPOINTS PER FEDERAL REGULATIONS. THIS INCLUDES VISITS FOR ALIA, RECERT, SCIC, AND/OR DC.] Future Scheduled Test SKILLED NU RSE WILL MAINTAIN SITUATIONAL AWARENESS FOR SAFETY AND WILL NOTIFY CLINICAL CONSULTING APPLICATION ENGINEER AND PHYSICIAN/PROVIDER WITH ANY CHANGE IN CONDITION. [code = SKILLED NURSE WILL MAINTAIN SITUATIONAL AWARENESS FOR SAFETY AND WILL NOTIFY CLINICAL CONSULTING APPLICATION ENGINEER AND PHYSICIAN/PROVIDER WITH ANY CHANGE IN CONDITION.] Future Scheduled Test SKILLED NU RSE TO [...] OF PATIENTS MENTAL/BEHAVIORAL STATUS, ASSESS VITAL SIGNS 2 X WEEK, ALLOW 2 PRNS FOR MEDICATION MANAGEMENT. [code = SKILLED NURSE TO O/A OF PATIENTS MENTAL/BEHAVIORAL STATUS, ASSESS VITAL SIGNS 2 X WEEK, ALLOW 2 PRNS FOR MEDICATION MANAGEMENT.] Future Scheduled Test SKILLED NU RSE FOR O/A OF GENERAL HEALTH STATUS OF PAIN, CARDIAC, RESPIRATORY, GASTROINTESTINAL, GENITOURINARY, SKIN, NEUROLOGIC, ENDOCRINE SYSTEMS TO IDENTIFY CHANGES ASSOCIATED WITH EXACERBATION FOR EARLY INTERVENTION OF COMPLICATIONS 2 X WEEK [code = SKILLED NURSE FOR O/A OF GENERAL HEALTH STATUS OF PAIN, CARDIAC, RESPIRATORY, GASTROINTESTINAL, GENITOURINARY, SKIN, NEUROLOGIC, ENDOCRINE SYSTEMS TO IDENTIFY CHANGES ASSOCIATED WITH EXACERBATION FOR EARLY INTERVENTION OF COMPLICATIONS 2 X WEEK] Future Scheduled Test SKILLED NU RSE TO [...] RSE TO PRE-POUR MEDICATION PER MEDICATION LIST 2 X WEEK. [code = SKILLED NURSE TO PRE-POUR MEDICATION PER MEDICATION LIST 2 X WEEK.] Future Scheduled Test SKILLED NU [...] TREATMENT, AND MANAGEMENT OF POTENTIAL SIDE EFFECTS.] Goal 2024-10-29 Patient Goal - TO SLEEP BETT ER Goal 2024-12-31 Patient Goal - TO SLEEP BETT ER Goal 2025-02-28 Patient Goal - TO SLEEP BETT ER Goal 2025-04-27 Patient Goal - TO SLEEP BETT ER Goal Patient Goal - TO SLEEP BETT ER Goal Provider Goal - A PLAN OF CARE WILL BE ESTABLISHED THAT MEETS PATIENT'S RESIDENTIAL NEEDS AND INCLUDES PATIENT GOAL FOR HOME HEALTH. Goal Provider Goal - PATIENT WILL REMAIN [...] SIXTH THERAPEUTIC VISIT. Goal Provider Goal - ALTERED MENTAL/BEHAVIORAL STATUS [...] - PATIENT/CAREGIVER WILL VERBALIZE/DEMONSTRATE MANAGEMENT OF BREAST CANCER DISEASE AND THE SIDE EFFECTS OF TREATMENTS DURING THIS EPISODE. Encounters Start Date/Time End Date/Time Encounter Type Admission Type Attending [facility] Care Facility Care Department Encounter ID Discharge Date Discharge Status Discharge Condition Discharge Reason Percent Goals Met 2025-05-02 00:00:00 2025-06-30 00:00:00 Outpatient RECERTIFIC ATALBERTA YU [facility] [id number] 0.00
--- OUTSIDE RECORDS SUMMARY | 2025-06-29 19:00 | XMS_ITS | Clinical Summary ---
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 Role Phone ANDREINA MENCHACA, CLARENCE Unavailable Unavailable TATI NARVAEZ, ALBERTA Unavailable Unavailable Payers Payer Name Policy Type Policy Number Effective Date Expira tion Date MEDICAID [facility] [id number] Problems Condition Name Condition Details Condition Category [...] 06-25 00:00: 00 09-01 23:59 :00 No [id number] 5 mg BEDTIME 5 mg BEDTIME (route: oral) Med Classific ation: Central Nervous System Agents buspirone 7.5 mg tablet 06-25 00:00: 00 09-01 23:59 :00 No [id number] 7.5 mg 2 TIMES DAILY 7.5 mg 2 TIMES DAILY (route: oral) Med Classific ation: Central Nervous System Agents Eliquis 5 mg tablet 06-25 00:00: 00 09-01 23:59 :00 No [id number] 5 mg 2 TIMES DAILY 5 mg 2 TIMES DAILY (route: oral) Med Classific ation: Hematolog ical Agents famotidine 20 mg tablet 06-25 00:00: 00 09-01 23:59 :00 No [id number] 20 mg 2 TIMES DAILY 20 mg 2 TIMES DAILY (route: oral) Med Classific ation: Gastroint estinal Therapy Agents levothyroxi ne 112 mcg tablet 06-25 00:00: 00 09-01 23:59 :00 No [id number] 112 mcg EVERY AM 112 mcg EVERY AM (route: oral) Med Classific ation: Endocrine losartan 25 mg tablet 06-25 00:00: 00 09-01 23:59 :00 No [id number] 25 mg NOON 25 mg NOON (route: oral) Med Classific ation: Cardiovas cular Therapy Agents metformin 500 mg tablet 06-25 00:00: 00 09-01 23:59 :00 No [id number] 500 mg DIRECTED 500 mg DIRECTED (route: oral) Med Classific ation: Endocrine mirtazapine 7.5 mg tablet 06-25 00:00: 00 09-01 23:59 :00 No [id number] 7.5 mg BEDTIME 7.5 mg BEDTIME (route: oral) Med Classific ation: Central Nervous System Agents Narcan 4 mg/actuatio n nasal spray 06-25 00:00: 00 09-01 23:59 :00 No [id number] 2 spray DIRECTED 2 spray DIRECTED (route: nasal) Med Classific ation: Antidotes and other Reversal Agents ondansetron 4 mg disintegrat ing tablet 06-25 00:00: 00 09-01 23:59 :00 No [id number] 4 mg EVERY 8 HOURS 4 mg EVERY 8 HOURS (route: oral) Med Classific ation: Gastroint estinal Therapy Agents oxycodone 5 mg tablet 06-25 00:00: 00 09-01 23:59 :00 No [id number] 5 mg EVERY 12 HOURS 5 mg EVERY 12 HOURS (route: oral) Med Classific ation: Analgesic , Anti-infl ammatory or Antipyret ic propranolol 10 mg tablet 06-25 00:00: 00 09-01 23:59 :00 No [id number] 17 mg 2 TIMES DAILY 17 mg 2 TIMES DAILY (route: oral) Med Classific ation: Cardiovas cular Therapy Agents sertraline 100 mg tablet 06-25 00:00: 00 09-01 23:59 :00 No [id number] 100 mg NOON 100 mg NOON (route: oral) Med Classific ation: Central Nervous System Agents buspirone 10 mg tablet 09-05 00:00: 00 04-08 23:59 :00 No [id number] 1 tablet 2 TIMES DAILY 1 tablet 2 TIMES DAILY (route: oral) Med Classific ation: Central Nervous System Agents Colace 100 mg capsule 09-04 00:00: 00 04-08 23:59 :00 No [id number] 1 capsule BEDTIME 1 capsule BEDTIME (route: oral) Med Classific ation: Gastroint estinal Therapy Agents Eliquis 5 mg tablet 09-04 00:00: 00 04-08 23:59 :00 No [id number] 1 tablet 2 TIMES DAILY 1 tablet 2 TIMES DAILY (route: oral) Med Classific ation: Hematolog ical Agents levothyroxi ne 112 mcg tablet 09-04 00:00: 00 04-08 23:59 :00 No [id number] 1 tablet EVERY AM 1 tablet EVERY AM (route: oral) Med Classific ation: Endocrine losartan 25 mg tablet 09-04 00:00: 00 04-08 23:59 :00 No [id number] 1 tablet NOON 1 tablet NOON (route: oral) Med Classific ation: Cardiovas cular Therapy Agents metformin 500 mg tablet 09-04 00:00: 00 04-08 23:59 :00 No [id number] 1 tablet EVERY AM 1 tablet EVERY AM (route: oral) Med Classific ation: Endocrine metformin 500 mg tablet 09-05 00:00: 00 04-08 23:59 :00 No [id number] 2 tablet EVERY PM 2 tablet EVERY PM (route: oral) Med Classific ation: Endocrine Pepcid 20 mg tablet 09-04 00:00: 00 04-08 23:59 :00 No [id number] 1 tablet 2 TIMES DAILY 1 tablet 2 TIMES DAILY (route: oral) Med Classific ation: Gastroint estinal Therapy Agents propranolol 10 mg tablet 09-04 00:00: 00 04-08 23:59 :00 No [id number] 1 tablet 2 TIMES DAILY 1 tablet 2 TIMES DAILY (route: oral) Med Classific ation: Cardiovas cular Therapy Agents sertraline 100 mg tablet 09-04 00:00: 00 04-08 23:59 :00 No [id number] 1 tablet NOON 1 tablet NOON (route: oral) Med Classific ation: Central Nervous System Agents mirtazapine 45 mg tablet 09-04 00:00: 00 04-08 23:59 :00 No [id number] 1 tablet BEDTIME 1 tablet BEDTIME (route: oral) Med Classific ation: Central Nervous System Agents hydroxyzine HCl 10 mg tablet 09-04 00:00: 00 04-08 23:59 :00 No [id number] 1-2 tablet 2 TIMES DAILY 1-2 tablet 2 TIMES DAILY (route: oral) Med Classific ation: Central Nervous System Agents buspirone 10 mg tablet 2024-06 00:00: 00 Yes [id number] 10 mg 2 TIMES DAILY 10 mg 2 TIMES DAILY (route: oral) Med Classific ation: Central Nervous System Agents Colace 100 mg capsule 2024-06 00:00: 00 Yes [id number] 100 mg BEDTIME 100 mg BEDTIME (route: oral) Med Classific ation: Gastroint estinal Therapy Agents Eliquis 5 mg tablet 2024-06 00:00: 00 Yes [id number] 5 mg 2 TIMES DAILY 5 mg 2 TIMES DAILY (route: oral) Med Classific ation: Hematolog ical Agents hydroxyzine HCl 10 mg tablet 2024-06 00:00: 00 Yes [id number] 10 mg 2 TIMES DAILY 10 mg 2 TIMES DAILY (route: oral) Med Classific ation: Central Nervous System Agents levothyroxi ne 112 mcg tablet 2024-06 00:00: 00 Yes [id number] 112 mcg EVERY AM 112 mcg EVERY AM (route: oral) Med Classific ation: Endocrine losartan 25 mg tablet 2024-06 00:00: 00 Yes [id number] 25 mg NOON 25 mg NOO N (route: oral) Med Classific ation: Cardiovas cular Therapy Agents metformin 500 mg tablet 2024-06 00:00: 00 Yes [id number] 500 mg EVERY AM 500 mg EVERY AM (route: oral) Med Classific ation: Endocrine metformin 500 mg tablet 2024-06 00:00: 00 Yes [id number] 500 mg EVERY PM 500 mg EVERY PM (route: oral) Med Classific ation: Endocrine mirtazapine 45 mg tablet 2024-06 00:00: 00 Yes [id number] 45 mg BEDTIME 45 mg BEDTIME (route: oral) Med Classific ation: Central Nervous System Agents Pepcid 20 mg tablet 2024-06 00:00: 00 Yes [id number] 20 mg 2 TIMES DAILY 20 mg 2 TIMES DAILY (route: oral) Med Classific ation: Gastroint estinal Therapy Agents propranolol 10 mg tablet 2024-06 00:00: 00 Yes [id number] 10 mg 2 TIMES DAILY 10 mg 2 TIMES DAILY (route: oral) Med Classific ation: Cardiovas cular Therapy Agents sertraline 100 mg tablet 2024-06 00:00: 00 Yes [id number] 100 mg NOON 100 mg NOON (route: [...] AWARENESS FOR SAFETY AND WILL NOTIFY CLINICAL LAUNCH STEWARD AND PHYSICIAN/PROVIDER WITH ANY CHANGE IN CONDITION. [code = SKILLED NURSE WILL MAINTAIN SITUATIONAL AWARENESS FOR SAFETY AND WILL NOTIFY CLINICAL LAUNCH STEWARD AND PHYSICIAN/PROVIDER WITH ANY CHANGE IN CONDITION.] [...] CARE WILL BE ESTABLISHED THAT MEETS PATIENT'S SENIOR LIVING NEEDS AND INCLUDES PATIENT GOAL FOR HOME [...] End Date/Time Encounter Type Admission Type Attending [facility] Care Facility Care Department Encounter ID Discharge Date Discharge Status Discharge Condition Discharge Reason Percent Goals Met 2025-05-02 00:00:00 2025-06-30 00:00:00 Outpatient RECERTIFIC ATALBERTA YU [facility] [id number] 0.00
== END 2025-05-25 12:47 | disposition home or self-care (01) ==
LOC: HO.LNP 12:46
PROVIDERS: PCP Student in an Organized Health Care Education/Training Program; Visit Provider Advanced Practice Midwife
DX: Z01.419 Encounter for gynecological examination (general) (routine) without abnormal findings (principal); N89.8 Other specified noninflammatory disorders of vagina; N90.89 Other specified noninflammatory disorders of vulva and perineum; Z78.0 Asymptomatic menopausal state; Z85.528 Personal history of other malignant neoplasm of kidney; Z87.09 Personal history of other diseases of the respiratory system; Z78.9 Other specified health status
CPT/HCPCS: 81515